=== PATIENT | male | born 1955 | race Caucasian/White ===

== ENCOUNTER → 2016-04-14 | Outpatient (REF) | payer OTHER, MEDICARE ==
[~2016-04-14] MED LIST: ACET-654 PO; ACET500C PO; ADVI200C5 PO; ALBU17IN INH; ASCO500T PO; ASPI1TAB PO; ATOR40TA PO; CIAL20TA PO; CO Q100C10 PO; COLC1TAB13 PO; CYCL10TA PO; DULO1CAP3 PO; FURO40TA2 PO; GABA600T PO; HYDR-3719 PO; LISI-538 PO; LISI10TA4 PO; MELO15TA4 PO; METF500T4 PO; METO50TA2 PO; OMEP40CA2 PO; PLAV75TA38 PO; POTA20TA PO; PRIL40CA PO; SIMV10TA2 PO; SUCR1TA PO; TYLE1TAB5 PO; VITMTA PO; VOLT1GEL24 TD; ZYLO300T4 PO
[2016-04-14 09:34] LABS: MEAN CORPUSCULAR HEMOGLOBIN 25.5 pg (27.0-33.0); MEAN CORPUSCULAR HGB CONC 31.4 g/dl (32.0-36.5); MEAN CORPUSCULAR VOLUME 81.4 fl (80.0-96.0); RED CELL DISTRIBUTION WIDTH 16.1 % (11.5-14.5); WHITE BLOOD COUNT 11.5 K/mm3 (4.0-10.0)
[2016-04-14 10:12] LABS: ALBUMIN 3.7 GM/DL (3.2-5.2); ALBUMIN/GLOBULIN RATIO 0.97 (1.00-1.93); BILIRUBIN,TOTAL 0.3 MG/DL (0.2-1.0); CALCIUM LEVEL 8.8 MG/DL (8.5-10.1); CREATININE FOR GFR 1.38 MG/DL (0.70-1.30); GLOMERULAR FILTRATION RATE 56.3 (>56); POTASSIUM SERUM 4.3 MEQ/L (3.5-5.1); TOTAL PROTEIN 7.5 GM/DL (6.4-8.2)
== END ==
LOC: M LAB REF 09:01
PROVIDERS: ATTEND Family Medicine
DX: E11.9 Type 2 diabetes mellitus without complications (principal)

== ENCOUNTER 2016-04-19 09:41 | Outpatient (RCR) | payer OTHER, MEDICARE | END 2016-04-25 | LOC: M CR 09:41 | PROVIDERS: ATTEND Internal Medicine Cardiovascular Disease | DX: Z98.61 Coronary angioplasty status (principal); Z95.1 Presence of aortocoronary bypass graft ==

== ENCOUNTER 2016-04-21 10:48 | Emergency (ER) | payer OTHER, MEDICARE ==
[2016-04-21 11:39] LABS: BASO % 0.3 % (0.0-1.0); EOS # 0.4 K/mm3 (0.0-0.50); EOS % 3.7 % (0.0-3.0); LARGE UNSTAINED CELL # 0.2 K/mm3 (0.0-0.4); LARGE UNSTAINED CELL % 1.4 % (0.0-4.0); LYMPH # 1.9 K/mm3 (1.5-4.5); LYMPH % 15.9 % (24.0-44.0); MEAN CORPUSCULAR HEMOGLOBIN 24.9 pg (27.0-33.0); MEAN CORPUSCULAR VOLUME 82.9 fl (80.0-96.0); MONO # 0.7 K/mm3 (0.0-0.8); MONO % 5.5 % (0.0-5.0); NEUTROPHILS # 8.9 K/mm3 (1.8-7.7); NEUTROPHILS % 73.2 % (36.0-66.0); PLATELET COUNT, AUTOMATED 229 k/mm3 (150-450); RED CELL DISTRIBUTION WIDTH 16.5 % (11.5-14.5); WHITE BLOOD COUNT 12.1 K/mm3 (4.0-10.0)
--- NOTE | 2016-04-21 12:03 | REP ---
PORTABLE CHEST X-RAY: Single view. HISTORY: Chest pain. Comparison chest x-ray January 19, 2016. FINDINGS: Right hemidiaphragm remains elevated. EKG monitoring electrodes overlie the chest. Prior sternotomy wires are seen. Heart is not felt to be enlarged. No infiltrate is seen. IMPRESSION: Elevated right hemidiaphragm unchanged. Prior sternotomy. No active disease. Signed by Francois Miramontes MD 04/21/2016 02:01 P
[2016-04-21 12:14] LABS: ANION GAP 8 MEQ/L (8-16); BLOOD UREA NITROGEN 20 MG/DL (7-18); CALCIUM LEVEL 8.5 MG/DL (8.5-10.1); CARBON DIOXIDE LEVEL 27 MEQ/L (21-32); CHLORIDE LEVEL 106 MEQ/L (98-107); CREATININE FOR GFR 1.32 MG/DL (0.70-1.30); GLOMERULAR FILTRATION RATE 59.3 (>56); GLUCOSE, FASTING 208 MG/DL (70-105); POTASSIUM SERUM 3.9 MEQ/L (3.5-5.1); SODIUM LEVEL 141 MEQ/L (136-145)
[2016-04-21 12:26] LABS: ERYTHROCYTE SEDIMENTATION RATE 45 mm/hr (0-20)
[2016-04-21] MEDS ORDERED: KETOROLAC 30 MG/ML VIAL (J1885) As Ordered ONE (13:19)
--- NOTE | 2016-04-21 17:10 | REP ---
CT study of the chest without contrast: History: Chest pain. Comparison is made with today's chest x-ray. CT findings: The right hemidiaphragm is quite elevated. There is linear plate-like atelectasis in the right middle lobe and right lower lobe above the elevated right hemidiaphragm. No infiltrate is seen. No pulmonary mass lesion is observed. Tracheobronchial tree is unremarkable. No pleural effusion seen. Prior sternotomy wires are noted. No pericardial fluid is seen. No hilar or mediastinal mass or adenopathy is observed. There are degenerative disc changes in the thoracic spine. There is a 1 cm central right hepatic lobe low density consistent with a small cyst. There is a 2 mm intrarenal calculus in the upper pole of the right kidney. There is a suture line at the gastroesophageal junction. Impression: Elevated right hemidiaphragm with discoid atelectasis in the right middle lobe and lower lobe. Postoperative changes in the upper abdomen. Prior sternotomy. 2 mm intrarenal calculus right kidney upper pole. Signed by Francois Miramontes MD 04/21/2016 10:13 P
[2016-04-21] MEDS ORDERED: PERCOCET 5MG/325MG TAB As Ordered ONE (17:50)
--- NOTE | 2016-04-21 19:06 | EDDOCDS ---
Physician Documentation [facility] Name: Jose Villatoro Age: 60 yrs Sex: Male : 1955 Arrival Date: 04/21/2016 Time: 10:48 Bed OBSERVATION Private MD: Leroy Triana Disposition: 04/21/16 18:38 Discharged to Home/Self Care. Impression: Chest pain on breathing. - Condition is Stable. - Discharge Instructions: Angina Pectoris, Nonspecific Chest Pain, Chest Wall Pain, Costochondritis, Angina Pectoris, [id number]. - Medication Reconciliation, Local Pharmacy Hours form. - Follow up: Leroy Triana; When: 2 - 3 days. - Problem is new. - Symptoms have improved. Historical: - Allergies: PENICILLINS; - Home Meds: 1. gabapentin 600 mg Oral tab 1 tab 3 times per day (Last dose: 04/21/2016 09:00) 2. metformin 500 mg Oral Tb24 2 tabs 2 times per day (Last dose: 04/21/2016 09:00) 3. atorvastatin 40 mg oral tab 1 tab sunday and for two weeks begining this week. (Last dose: 04/20/2016 09:00) 4. aspirin 81 mg Oral chew 1 tab once daily (Last dose: 04/21/2016 09:00) 5. [place] 10-325 mg Oral tab 1 tab every 6 hours as needed (Last dose: 04/21/2016 09:00) 6. clopidogrel 75 mg oral tab 1 tab once daily (Last dose: 04/21/2016 09:00) 7. duloxetine 60 mg Oral cpDR 1 cap once daily (Last dose: 04/21/2016 09:00) 8. voltaren gel 1% as needed (Last dose: 04/16/2016) 9. omeprazole 40 mg Oral cpDR 1 cap once daily (Last dose: 04/21/2016 09:00) 10. CoQ-10 100 mg oral cap 1 cap twice a day (Last dose: 04/21/2016 09:00) 11. metoprolol tartrate 50 mg Oral tab 1 tab 2 times per day (Last dose: 04/21/2016 09:00) 12. nitroglycerin 0.4 mg SL subl 1 tab PRN (Last dose: 12/15/2014) 13. Tylenol PM 500 mg oral soln 1 tablet as needed 1 to 2 tablets (Last dose: 03/30/2016) 14. allopurinol 300 mg Oral tab 1 tab once daily (Last dose: 04/21/2016 09:00) - PMHx: Arthritis; CAD; Chronic Back pain; Depression; Diabetes - NIDDM: uncontrolled; Gout; Hypercholesterolemia; Hypertension; nerve pain; Palpitations; Anemia; - PSHx: CABG; pericardial window; - Social history: Smoking status: Patient states former smoker of tobacco. No barriers to communication noted, The patient speaks fluent Croatian. - Family history: Not pertinent. - : The pt / caregiver states he / she is on anticoagulants: Plavix. Home medication list is obtained from the patient. - Exposure Risk Screening:: None identified. Vital Signs: 04/21 10:59 BP 153 / 74; Pulse 85; Resp 20; Temp 98.3(O); Pulse Ox 96% on R/A; nb2 12:55 BP 132 / 61 (auto/); ja5 12:55 Pulse 78 MON; Pulse Ox 94% ; ja5 13:10 BP 123 / 67 (auto/); ja5 13:10 Pulse 80 MON; Pulse Ox 95% ; ja5 13:24 Pulse 80 MON; Pulse Ox 97% ; ja5 13:25 BP 115 / 56 (auto/); ja5 13:39 Pulse 80 MON; Pulse Ox 94% ; ja5 13:40 BP 130 / 78 (auto/); ja5 13:54 Pulse 84 MON; Pulse Ox 97% ; ja5 13:55 BP 126 / 71 (auto/); ja5 14:10 BP 132 / 94 (auto/); ja5 14:10 Pulse 78 MON; Pulse Ox 96% ; ja5 14:24 Pulse 78 MON; Pulse Ox 94% ; ja5 14:25 BP 110 / 57 (auto/); ja5 14:40 BP 123 / 58 (auto/); ja5 14:40 Pulse 80 MON; Pulse Ox 92% ; ja5 14:49 BP 123 / 58; Pulse 82; Resp 20; Temp 96.7(O); Pulse Ox 95% on R/A; Pain 2/10; jc4 14:54 Pulse 78 MON; Pulse Ox 94% ; ja5 14:55 BP 122 / 58 (auto/); ja5 15:09 Pulse 70 MON; Pulse Ox 93% ; ja5 15:10 BP 119 / 58 (auto/); ja5 15:23 Pulse 78 MON; Pulse Ox 93% ; ja5 15:25 BP 125 / 60 (auto/); ja5 15:39 Pulse 78 MON; Pulse Ox 95% ; ja5 15:40 BP 111 / 69 (auto/); ja5 15:50 Pulse 78 MON; Pulse Ox 96% ; ja5 15:55 BP 111 / 45 (auto/); ja5 16:09 Pulse 60 MON; ja5 16:10 BP 123 / 60 (auto/); ja5 16:24 Pulse 78 MON; Pulse Ox 97% ; ja5 16:25 BP 113 / 56 (auto/); ja5 16:40 BP 126 / 69 (auto/); ja5 16:40 Pulse 82 MON; Pulse Ox 98% ; ja5 16:54 Pulse 80 MON; Pulse Ox 97% ; ja5 16:55 BP 158 / 73 (auto/); ja5 17:10 BP 152 / 70 (auto/); ja5 17:10 Pulse 80 MON; Pulse Ox 97% ; ja5 17:43 Pulse 82 MON; ja5 17:44 BP 126 / 83 (auto/); ja5 18:15 Pain 8/10; ja5 18:43 BP 134 / 66 LA Supine (auto/); Pulse 55; Resp 16; Temp 97.1(T); Pulse Ox 95% on R/A; ja5 Pain 9/10; MDM: 10:52 Chemistry Instructor/Pulse Ox/q 30 min VS ordered. sd1 10:52 IV Saline Lock ordered. sd1 10:52 Rhythm Strip to chart ordered. sd1 10:52 Undress patient appropriately for examination ordered. sd1 10:53 Basic Metabolic Profile Ordered. EDMS 10:53 CBC with Diff Ordered. EDMS 10:53 Cardiac Injury Profile Ordered. EDMS 10:53 Troponin Ordered. EDMS 10:54 portable chest Ordered. EDMS 10:54 ECG WITH READING ER PHYS+CARDIAG ordered. EDMS 11:10 Financial registration complete. mm15 11:36 ERYTHROCYTE SEDIMENTATION RATE Ordered. EDMS 11:42 CBC with Diff Reviewed. sd1 12:22 Basic Metabolic Profile Reviewed. sd1 12:22 CBC with Diff Reviewed. sd1 12:22 Cardiac Injury Profile Reviewed. sd1 12:22 Troponin Reviewed. sd1 12:22 portable chest Reviewed. sd1 12:38 CBC with Diff Reviewed. sd1 12:38 ERYTHROCYTE SEDIMENTATION RATE Reviewed. sd1 12:43 ketorolac 15 mg IVP once ordered. sd1 13:23 CONSISTENT CARBOHYDRATE+DIET ordered. EDMS 13:24 [facility] Payment Agreement was scanned into [employer] and attached to record. mm15 16:22 portable chest Reviewed. sd1 16:24 CT Chest Without Contrast Ordered. EDMS 17:28 Repeat EKG (put time details section) ordered. sd1 17:28 Redraw CIP &Troponin (put time in details section) ordered. sd1 17:29 Repeat EKG (put time details section) complete. lbd 17:29 Redraw CIP &Troponin (put time in details section) complete. lbd 17:32 CARDIAC MARKER PANEL Ordered. EDMS 17:34 ECG WITH READING ER PHYS ordered. EDMS 17:45 oxyCODONE-acetaminophen 5 mg-325 mg 1 tabs PO once ordered. sd1 18:19 CT Chest Without Contrast Reviewed. sd1 18:27 CARDIAC MARKER PANEL Reviewed. sd1 Administered Medications: 13:22 Drug: ketorolac 15 mg [ketorolac 30 mg/mL (1 mL) injection solution (0.5 mL)] Route: kr3 IVP; Site: right antecubital; 14:49 Follow up: BP 123 / 58; Pulse 82 bpm; Resp 20 bpm; Temp 96.7 Oral; Pulse Ox 95% RA; jc4 Pain 2/10 Adult 17:53 Drug: oxyCODONE-acetaminophen 1 tabs [oxycodone-acetaminophen 5 mg-325 mg tablet (1 ja5 tabs)] Route: PO; 18:15 Follow up: Pain 8/10 Adult ja5 Signatures: Dispatcher [employer] EDMS Linnette Benavidez MD MD sd1 Windy Watters, Fitness Trainer Unit lbd Opal Hernandez mm15 oCral Muller RN RN ja5 Lupe Winston RN kr3 Ivette Young RN jc4 The chart was reviewed and I authenticate all verbal orders and agree with the evaluation and treatment provided.Corrections: (The following items were deleted from the chart) 11:36 11:05 ERYTHROCYTE SEDIMENTATION RATE+LAB ordered. EDMS EDMS Attachments: 13:24 [facility] Payment Agreement mm15 MTDD
--- NOTE | 2016-04-21 19:07 | EDDOCDS ---
Nurse's Notes [facility] Name: Jose Villatoro Age: 60 yrs Sex: Male : 1955 Arrival Date: 04/21/2016 Time: 10:48 Bed OBSERVATION Private MD: Leroy Triana Diagnosis: Chest pain on breathing Presentation: 04/21 10:59 Presenting complaint: Patient states: Has chest pain to when he breathes. This pain ja5 began last night around 8pm. 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 Adult Sepsis Screening: The patient does not have new or worsening altered mentation. Patient's respiratory rate is less than 22. Systolic blood pressure is greater than 100. Patient has a qSOFA score of 0- Negative Sepsis Screen. Suicide/Homicide risk assessment- the patient denies having any suicidal and/or homicidal ideations and does not present with any other emotional, behavioral or mental health complaints. Status: Patient is not a special agent secret service or dependent. Transition of care: patient was not received from another setting of care. 10:59 Acuity: WARREN Level 2 ja5 10:59 Method Of Arrival: Walkin/Carried/Asstd ja5 Triage Assessment: 11:23 General: Appears in no apparent distress, Behavior is appropriate for age, cooperative. ja5 Pain: Location: chest Pain currently is 5 out of 10 on a pain scale. Quality of pain is described as pressure. Pt Declines HIV testing. Neurological: Level of Consciousness is awake, alert, Oriented to person, place, time. Cardiovascular: Capillary refill < 3 seconds Chest pain is described as Pain is 5 out of 10 on a pain scale. radiates Does not radiate. episodes when breathing began last night 8pm. Respiratory: Airway is patent Respiratory effort is even, unlabored, Respiratory pattern is regular. Derm: Skin is intact, Skin is pink, warm & dry. Historical: - Allergies: PENICILLINS; - Home Meds: 1. gabapentin 600 mg Oral tab 1 tab 3 times per day (Last dose: 04/21/2016 09:00) 2. metformin 500 mg Oral Tb24 2 tabs 2 times per day (Last dose: 04/21/2016 09:00) 3. atorvastatin 40 mg oral tab 1 tab sunday and for two weeks begining this week. (Last dose: 04/20/2016 09:00) 4. aspirin 81 mg Oral chew 1 tab once daily (Last dose: 04/21/2016 09:00) 5. [place] 10-325 mg Oral tab 1 tab every 6 hours as needed (Last dose: 04/21/2016 09:00) 6. clopidogrel 75 mg oral tab 1 tab once daily (Last dose: 04/21/2016 09:00) 7. duloxetine 60 mg Oral cpDR 1 cap once daily (Last dose: 04/21/2016 09:00) 8. voltaren gel 1% as needed (Last dose: 04/16/2016) 9. omeprazole 40 mg Oral cpDR 1 cap once daily (Last dose: 04/21/2016 09:00) 10. CoQ-10 100 mg oral cap 1 cap twice a day (Last dose: 04/21/2016 09:00) 11. metoprolol tartrate 50 mg Oral tab 1 tab 2 times per day (Last dose: 04/21/2016 09:00) 12. nitroglycerin 0.4 mg SL subl 1 tab PRN (Last dose: 12/15/2014) 13. Tylenol PM 500 mg oral soln 1 tablet as needed 1 to 2 tablets (Last dose: 03/30/2016) 14. allopurinol 300 mg Oral tab 1 tab once daily (Last dose: 04/21/2016 09:00) - PMHx: Arthritis; CAD; Chronic Back pain; Depression; Diabetes - NIDDM: uncontrolled; Gout; Hypercholesterolemia; Hypertension; nerve pain; Palpitations; Anemia; - PSHx: CABG; pericardial window; - Social history: Smoking status: Patient states former smoker of tobacco. No barriers to communication noted, The patient speaks fluent Fijian. - Family history: Not pertinent. - : The pt / caregiver states he / she is on anticoagulants: Plavix. Home medication list is obtained from the patient. - Exposure Risk Screening:: None identified. Screenin:29 Screening information is obtained from the patient. Fall risk: No risks identified. ja5 Assistance ADL's: requires no assistance with activities of daily living. Abuse/DV Screen: The patient / caregiver reports he/she is: not in a situation that causes fear, pain or injury. Nutritional screening: On diabetic diet. Advance Directives: Currently, there is no health care proxy. There is no living will. There is no Power of Waste Water Worker. home support is adequate. 11:32 Advance Directives: There is no active DNR order. ja5 Assessment: 11:26 General: Appears in no apparent distress, Behavior is appropriate for age, cooperative. ja5 Neurological: Level of Consciousness is awake, alert. Cardiovascular: Capillary refill < 3 seconds Heart tones S1 S2 present Rhythm is sinus rhythm with unifocal PVCs bigeminal PVCs. Respiratory: Airway is patent Respiratory effort is even, unlabored, Breath sounds are clear bilaterally. Derm: Skin is intact, Skin is pink, warm & dry. 11:49 General: Pt resting on stretcher at this time. Color pink, skin warm and dry. jc4 Respirations easy and full. Saline lock in place. Family members at bedside. Call tovar in reach. 13:23 Reassessment: Patient appears in no apparent distress at this time. reports 9/10 body kr3 pain, all over body he reports. Patient sitting in wheelchair for his comfort. 14:51 General: Pt lying on stretcher with eyes closed, appeared to be asleep. Upon rousing, jc4 patient states that the pain in his chest is currently a "2/10" at this time. Color pink, skin warm and dry. Respirations easy and full. Diet sara jaguar given per request. 16:48 General: Patient is resting, was repositioned for his back pain, warm blankets placed ja5 on back. Patient states that his chest pain is now a 3/10.. 17:45 General: Patient is upset because he had to wait for the Follow-Up labs and ekg, he is ja5 in pain 10/10 at this time. 17:53 General: Pain medication administered, patient in better mood at this time, awaiting ja5 lab results.. 18:15 General: Patient resting with eyes closed in stretcher, pain is decreased to a 8/10. ja5 Patient states he has no needs at this time. Call tovar within reach.. 18:34 General: Appears uncomfortable, Behavior is appropriate for age, cooperative. ja5 Neurological: Level of Consciousness is awake, alert, Oriented to person, place, time. Cardiovascular: Capillary refill < 3 seconds. Respiratory: Airway is patent Respiratory effort is even, unlabored. Derm: Skin is intact, Skin is pink, warm & dry. Vital Signs: 10:59 BP 153 / 74; Pulse 85; Resp 20; Temp 98.3(O); Pulse Ox 96% on R/A; nb2 12:55 BP 132 / 61 (auto/); ja5 12:55 Pulse 78 MON; Pulse Ox 94% ; ja5 13:10 BP 123 / 67 (auto/); ja5 13:10 Pulse 80 MON; Pulse Ox 95% ; ja5 13:24 Pulse 80 MON; Pulse Ox 97% ; ja5 13:25 BP 115 / 56 (auto/); ja5 13:39 Pulse 80 MON; Pulse Ox 94% ; ja5 13:40 BP 130 / 78 (auto/); ja5 13:54 Pulse 84 MON; Pulse Ox 97% ; ja5 13:55 BP 126 / 71 (auto/); ja5 14:10 BP 132 / 94 (auto/); ja5 14:10 Pulse 78 MON; Pulse Ox 96% ; ja5 14:24 Pulse 78 MON; Pulse Ox 94% ; ja5 14:25 BP 110 / 57 (auto/); ja5 14:40 BP 123 / 58 (auto/); ja5 14:40 Pulse 80 MON; Pulse Ox 92% ; ja5 14:49 BP 123 / 58; Pulse 82; Resp 20; Temp 96.7(O); Pulse Ox 95% on R/A; Pain 2/10; jc4 14:54 Pulse 78 MON; Pulse Ox 94% ; ja5 14:55 BP 122 / 58 (auto/); ja5 15:09 Pulse 70 MON; Pulse Ox 93% ; ja5 15:10 BP 119 / 58 (auto/); ja5 15:23 Pulse 78 MON; Pulse Ox 93% ; ja5 15:25 BP 125 / 60 (auto/); ja5 15:39 Pulse 78 MON; Pulse Ox 95% ; ja5 15:40 BP 111 / 69 (auto/); ja5 15:50 Pulse 78 MON; Pulse Ox 96% ; ja5 15:55 BP 111 / 45 (auto/); ja5 16:09 Pulse 60 MON; ja5 16:10 BP 123 / 60 (auto/); ja5 16:24 Pulse 78 MON; Pulse Ox 97% ; ja5 16:25 BP 113 / 56 (auto/); ja5 16:40 BP 126 / 69 (auto/); ja5 16:40 Pulse 82 MON; Pulse Ox 98% ; ja5 16:54 Pulse 80 MON; Pulse Ox 97% ; ja5 16:55 BP 158 / 73 (auto/); ja5 17:10 BP 152 / 70 (auto/); ja5 17:10 Pulse 80 MON; Pulse Ox 97% ; ja5 17:43 Pulse 82 MON; ja5 17:44 BP 126 / 83 (auto/); ja5 18:15 Pain 8/10; ja5 18:43 BP 134 / 66 LA Supine (auto/); Pulse 55; Resp 16; Temp 97.1(T); Pulse Ox 95% on R/A; ja5 Pain 9/10; Vitals: 18:50 Log In Time: April 21, 2016 at 10:59. [facility] ED Course: 10:50 Patient visited by Windy Watters, Washer Engineer. lbd 10:50 Leroy Triana is Private Physician. lbd 10:50 Patient moved to Waiting lbd 10:51 Ivette Young, RN is Primary Nurse. lbd 10:51 Coral Muller RN is Primary Nurse. lbd 10:51 Linnette Benavidez MD is Attending Physician. sd1 10:51 Patient moved to 9 lbd 10:52 Patient visited by Linnette Benavidez MD. sd1 10:59 Placed in gown. Bed in low position. Call light in reach. Side rails up X2. Cardiac nb2 monitor on. Pulse ox on. NIBP on. 11:00 Patient visited by Christine Kulkarni. nb2 11:00 The patient / caregiver is instructed regarding the plan of care and ED course. [facility] 11:04 Triage Initiated [facility] 11:05 EKG done. (by ED staff). Reviewed by Linnette Benavidez MD. jrd 11:37 ERYTHROCYTE SEDIMENTATION RATE Sent. jc4 11:38 Inserted saline lock: 20 gauge in right antecubital area The patient tolerated the jc4 procedure well. 11:49 Patient visited by Ivette Young RN. jc4 12:15 portable chest Returned. EDMS 13:22 Patient visited by Lupe Winston RN. kr3 13:24 [facility] [place] Payment Agreement was scanned into [employer] and attached to record. mm15 13:37 Patient moved to OBSERVATION sd1 13:49 Patient visited by Christine Kulkarni. nb2 13:49 Diet tray given. kr3 13:49 Diet: Patient given regular meal. Patient given water. nb2 14:36 portable chest Returned. EDMS 17:30 EKG done. (by ED staff). Reviewed by Linnette Benavidez MD. jrd 17:45 Patient visited by Coral Muller RN. ja5 18:00 CT Chest Without Contrast Returned. EDMS 18:15 Patient visited by Coral Muller RN. ja5 18:38 Leroy Triana is Referral Physician. sd1 18:45 No procedures done that require assistance. ja5 18:49 Patient visited by Justyn Pozo PCA. leah Administered Medications: 13:22 Drug: ketorolac 15 mg [ketorolac 30 mg/mL (1 mL) injection solution (0.5 mL)] Route: kr3 IVP; Site: right antecubital; 14:49 Follow up: BP 123 / 58; Pulse 82 bpm; Resp 20 bpm; Temp 96.7 Oral; Pulse Ox 95% RA; jc4 Pain 2/10 Adult 17:53 Drug: oxyCODONE-acetaminophen 1 tabs [oxycodone-acetaminophen 5 mg-325 mg tablet (1 ja5 tabs)] Route: PO; 18:15 Follow up: Pain 8/10 Adult ja5 Order Results: Lab Order: Basic Metabolic Profile; SPEC'M 04/21/16 11:29 Test: GLUCOSE, FASTING; Value: 208; Range: 70-105; Abnormal: Above high normal; Units: MG/DL; Status: F Test: BLOOD UREA NITROGEN; Value: 20; Range: 7-18; Abnormal: Above high normal; Units: MG/DL; Status: F Test: CREATININE FOR GFR; Value: 1.32; Range: 0.70-1.30; Abnormal: Above high normal; Units: MG/DL; Status: F Test: GLOMERULAR FILTRATION RATE; Value: 59.3; Range: >56; Status: F Test: SODIUM LEVEL; Value: 141; Range: 136-145; Units: MEQ/L; Status: F Test: POTASSIUM SERUM; Value: 3.9; Range: 3.5-5.1; Units: MEQ/L; Status: F Test: CHLORIDE LEVEL; Value: 106; Range: 98-107; Units: MEQ/L; Status: F Test: CARBON DIOXIDE LEVEL; Value: 27; Range: 21-32; Units: MEQ/L; Status: F Test: ANION GAP; Value: 8; Range: 8-16; Units: MEQ/L; Status: F Test: CALCIUM LEVEL; Value: 8.5; Range: 8.5-10.1; Units: MG/DL; Status: F Test Note: ; Units are mL/min/1.73 m2 Chronic Kidney Disease Staging per NKF: Stage I & II GFR >=60 Normal to Mildly Decreased Stage III GFR 30-59 Moderately Decreased Stage IV GFR 15-29 Severely Decreased Stage V GFR <15 Very Little GFR Left ESRD GFR <15 on SENIOR ENVIRONMENTAL SCIENTIST Lab Order: CBC with Diff; SPEC'M 04/21/16 11:29 Test: WHITE BLOOD COUNT; Value: 12.1; Range: 4.0-10.0; Abnormal: Above high normal; Units: K/mm3; Status: F Test: RED BLOOD COUNT; Value: 4.56; Range: 4.30-6.10; Units: M/mm3; Status: F Test: HEMOGLOBIN; Value: 11.3; Range: 14.0-18.0; Abnormal: Below low normal; Units: g/dl; Status: F Test: HEMATOCRIT; Value: 37.8; Range: 42.0-52.0; Abnormal: Below low normal; Units: %; Status: F Test: MEAN CORPUSCULAR VOLUME; Value: 82.9; Range: 80.0-96.0; Units: fl; Status: F Test: MEAN CORPUSCULAR HEMOGLOBIN; Value: 24.9; Range: 27.0-33.0; Abnormal: Below low normal; Units: pg; Status: F Test: MEAN CORPUSCULAR HGB CONC; Value: 30.0; Range: 32.0-36.5; Abnormal: Below low normal; Units: g/dl; Status: F Test: RED CELL DISTRIBUTION WIDTH; Value: 16.5; Range: 11.5-14.5; Abnormal: Above high normal; Units: %; Status: F Test: PLATELET COUNT, AUTOMATED; Value: 229; Range: 150-450; Units: k/mm3; Status: F Test: NEUTROPHILS %; Value: 73.2; Range: 36.0-66.0; Abnormal: Above high normal; Units: %; Status: F Test: LYMPH %; Value: 15.9; Range: 24.0-44.0; Abnormal: Below low normal; Units: %; Status: F Test: MONO %; Value: 5.5; Range: 0.0-5.0; Abnormal: Above high normal; Units: %; Status: F Test: EOS %; Value: 3.7; Range: 0.0-3.0; Abnormal: Above high normal; Units: %; Status: F Test: BASO %; Value: 0.3; Range: 0.0-1.0; Units: %; Status: F Test: LARGE UNSTAINED CELL %; Value: 1.4; Range: 0.0-4.0; Units: %; Status: F Test: NEUTROPHILS #; Value: 8.9; Range: 1.8-7.7; Abnormal: Above high normal; Units: K/mm3; Status: F Test: LYMPH #; Value: 1.9; Range: 1.5-4.5; Units: K/mm3; Status: F Test: MONO #; Value: 0.7; Range: 0.0-0.8; Units: K/mm3; Status: F Test: EOS #; Value: 0.4; Range: 0.0-0.50; Units: K/mm3; Status: F Test: BASO #; Value: 0.0; Range: 0.0-0.2; Units: K/mm3; Status: F Test: LARGE UNSTAINED CELL #; Value: 0.2; Range: 0.0-0.4; Units: K/mm3; Status: F Lab Order: Cardiac Injury Profile; SPEC'M 04/21/16 11:29 Test: CPK CREATINE PHOSPHOKINASE; Value: 46; Range: 39-308; Units: U/L; Status: F Test: CK-MB VALUE MASS; Value: 1.0; Range: 0.0-3.6; Units: NG/ML; Status: F Test: MB/CK RELATIVE INDEX; Value: 2.17; Range: < OR =4; Status: F Test Note: ; DIAGNOSIS CRITERIA MMB ng/ml Relative Index (RI) NON-AMI < or = 5 N/A [place] > 5 < or = 4 AMI > 5 > 4 Lab Order: Troponin; SPEC'M 04/21/16 11:29 Test: TROPONIN I; Value: < 0.02; Range: < 0.10; Units: NG/ML; Status: F Test Note: ; Troponin I Reference Interval for Siemens Linki LOCI: 99th Percentile= 0.00-0.045 ng/ml Risk Stratification: <= 0.10 ng/ml Decreased Risk for Adverse Clinical Events. 0.10-1.50 ng/ml Increased Risk for Adverse Clinical Events. Evaluation of additional criterion and/or repeat testing in 2-6 hours is suggested to rule out myocardial damage. >= 1.50 ng/ml Indicative of Myocardial Injury. Lab Order: ERYTHROCYTE SEDIMENTATION RATE; SPEC'M 04/21/16 11:29 Test: ERYTHROCYTE SEDIMENTATION RATE; Value: 45; Range: 0-20; Abnormal: Above high normal; Units: mm/hr; Status: F Lab Order: CARDIAC MARKER PANEL; SPEC'M 04/21/16 17:41 Test: CPK CREATINE PHOSPHOKINASE; Value: 49; Range: 39-308; Units: U/L; Status: F Test: CK-MB VALUE MASS; Value: 1.0; Range: 0.0-3.6; Units: NG/ML; Status: F Test: MB/CK RELATIVE INDEX; Value: 2.04; Range: < OR =4; Status: F Test: TROPONIN I; Value: < 0.02; Range: < 0.10; Units: NG/ML; Status: F Test Note: ; DIAGNOSIS CRITERIA MMB ng/ml Relative Index (RI) NON-AMI < or = 5 N/A [place]ONE > 5 < or = 4 AMI > 5 > 4 Radiology Order: portable chest Test: portable chest REASON FOR EXAMINATION: Chest Pain; PORTABLE CHEST X-RAY: Single view.; ; HISTORY: Chest pain.; ; Comparison chest x-ray January 19, 2016.; ; FINDINGS: Right hemidiaphragm remains elevated. EKG monitoring electrodes; overlie the chest. Prior sternotomy wires are seen. Heart is not felt to be; enlarged. No infiltrate is seen.; ; IMPRESSION: Elevated right hemidiaphragm unchanged. Prior sternotomy. No active; disease.; ; ; Signed by; Francois Miramontes MD 04/21/2016 02:01 P; Radiology Order: CT Chest Without Contrast Test: CT Chest Without Contrast REASON FOR EXAMINATION: Chest Pain; CT study of the chest without contrast:; ; History: Chest pain.; ; Comparison is made with today's chest x-ray.; ; CT findings: The right hemidiaphragm is quite elevated. There is linear; plate-like atelectasis in the right middle lobe and right lower lobe above the; elevated right hemidiaphragm. No infiltrate is seen. No pulmonary mass lesion; is observed. Tracheobronchial tree is unremarkable. No pleural effusion seen.; Prior sternotomy wires are noted. No pericardial fluid is seen. No hilar or; mediastinal mass or adenopathy is observed. There are degenerative disc changes; in the thoracic spine. There is a 1 cm central right hepatic lobe low density; consistent with a small cyst. There is a 2 mm intrarenal calculus in the upper; pole of the right kidney. 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 Postoperative changes in the upper abdomen. Prior sternotomy.; 2 mm intrarenal calculus right kidney upper pole.; ; ; ; ; Unreviewed; Outcome: 18:38 Discharge ordered by Provider. sd1 18:45 Discharge Assessment: patient administered narcotics - yes. Pt provided with safe ja5 discharge. The following High Risk Discharge criteria are identified: None. Condition: stable. CT Study completed. Property :Personal belongings accompany Pt. 19:05 Discharge instructions given to patient, Instructed on discharge instructions, follow ja5 up and referral plans. medication usage, no driving heavy equipment, Demonstrated understanding of instructions, medications, 19:05 Patient left the ED. ja5 Signatures: Dispatcher [employer] EDMS Linnette Benavidez MD MD sd1 Windy Watters, Washer Engineer Unit lbd Lupe Winston,RN RN [email or web address] Ivette Young RN RN [email or web address] Opal Hernandez mm15 Justyn Pozo, JOSE WHARF WORKER Christine Batres2 Coral Muller,RN RN ana [email or web address] Corrections: (The following items were deleted from the chart) 11:36 11:31 ERYTHROCYTE SEDIMENTATION RATE+LAB sent. jc4 EDMS MTDD
--- NOTE | 2016-04-21 19:29 | ECGEPIP ---
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
--- NOTE | 2016-04-21 19:35 | ECGEPIP ---
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
--- NOTE | 2016-04-23 20:07 | EDDOCDS ---
Physician Documentation [facility] Name: Jose Villatoro Age: 60 yrs Sex: Male : 1955 Arrival Date: 04/21/2016 Time: 10:48 Bed OBSERVATION Private MD: Leroy Triana Disposition: 04/21/16 18:38 Discharged to Home/Self Care. Impression: Chest pain on breathing. - Condition is Stable. - Discharge Instructions: Angina Pectoris, Nonspecific Chest Pain, Chest Wall Pain, Costochondritis, Angina Pectoris, [id number]. - Medication Reconciliation, Local Pharmacy Hours form. - Follow up: Leroy Triana; When: 2 - 3 days. - Problem is new. - Symptoms have improved. Historical: - Allergies: PENICILLINS; - Home Meds: 1. gabapentin 600 mg Oral tab 1 tab 3 times per day (Last dose: 04/21/2016 09:00) 2. metformin 500 mg Oral Tb24 2 tabs 2 times per day (Last dose: 04/21/2016 09:00) 3. atorvastatin 40 mg oral tab 1 tab sunday and for two weeks begining this week. (Last dose: 04/20/2016 09:00) 4. aspirin 81 mg Oral chew 1 tab once daily (Last dose: 04/21/2016 09:00) 5. [place] 10-325 mg Oral tab 1 tab every 6 hours as needed (Last dose: 04/21/2016 09:00) 6. clopidogrel 75 mg oral tab 1 tab once daily (Last dose: 04/21/2016 09:00) 7. duloxetine 60 mg Oral cpDR 1 cap once daily (Last dose: 04/21/2016 09:00) 8. voltaren gel 1% as needed (Last dose: 04/16/2016) 9. omeprazole 40 mg Oral cpDR 1 cap once daily (Last dose: 04/21/2016 09:00) 10. CoQ-10 100 mg oral cap 1 cap twice a day (Last dose: 04/21/2016 09:00) 11. metoprolol tartrate 50 mg Oral tab 1 tab 2 times per day (Last dose: 04/21/2016 09:00) 12. nitroglycerin 0.4 mg SL subl 1 tab PRN (Last dose: 12/15/2014) 13. Tylenol PM 500 mg oral soln 1 tablet as needed 1 to 2 tablets (Last dose: 03/30/2016) 14. allopurinol 300 mg Oral tab 1 tab once daily (Last dose: 04/21/2016 09:00) - PMHx: Arthritis; CAD; Chronic Back pain; Depression; Diabetes - NIDDM: uncontrolled; Gout; Hypercholesterolemia; Hypertension; nerve pain; Palpitations; Anemia; - PSHx: CABG; pericardial window; - Social history: Smoking status: Patient states former smoker of tobacco. No barriers to communication noted, The patient speaks fluent [place]. - Family history: Not pertinent. - : The pt / caregiver states he / she is on anticoagulants: Plavix. Home medication list is obtained from the patient. - Exposure Risk Screening:: None identified. Vital Signs: 04/21 10:59 BP 153 / 74; Pulse 85; Resp 20; Temp 98.3(O); Pulse Ox 96% on R/A; nb2 12:55 BP 132 / 61 (auto/); ja5 12:55 Pulse 78 MON; Pulse Ox 94% ; ja5 13:10 BP 123 / 67 (auto/); ja5 13:10 Pulse 80 MON; Pulse Ox 95% ; ja5 13:24 Pulse 80 MON; Pulse Ox 97% ; ja5 13:25 BP 115 / 56 (auto/); ja5 13:39 Pulse 80 MON; Pulse Ox 94% ; ja5 13:40 BP 130 / 78 (auto/); ja5 13:54 Pulse 84 MON; Pulse Ox 97% ; ja5 13:55 BP 126 / 71 (auto/); ja5 14:10 BP 132 / 94 (auto/); ja5 14:10 Pulse 78 MON; Pulse Ox 96% ; ja5 14:24 Pulse 78 MON; Pulse Ox 94% ; ja5 14:25 BP 110 / 57 (auto/); ja5 14:40 BP 123 / 58 (auto/); ja5 14:40 Pulse 80 MON; Pulse Ox 92% ; ja5 14:49 BP 123 / 58; Pulse 82; Resp 20; Temp 96.7(O); Pulse Ox 95% on R/A; Pain 2/10; jc4 14:54 Pulse 78 MON; Pulse Ox 94% ; ja5 14:55 BP 122 / 58 (auto/); ja5 15:09 Pulse 70 MON; Pulse Ox 93% ; ja5 15:10 BP 119 / 58 (auto/); ja5 15:23 Pulse 78 MON; Pulse Ox 93% ; ja5 15:25 BP 125 / 60 (auto/); ja5 15:39 Pulse 78 MON; Pulse Ox 95% ; ja5 15:40 BP 111 / 69 (auto/); ja5 15:50 Pulse 78 MON; Pulse Ox 96% ; ja5 15:55 BP 111 / 45 (auto/); ja5 16:09 Pulse 60 MON; ja5 16:10 BP 123 / 60 (auto/); ja5 16:24 Pulse 78 MON; Pulse Ox 97% ; ja5 16:25 BP 113 / 56 (auto/); ja5 16:40 BP 126 / 69 (auto/); ja5 16:40 Pulse 82 MON; Pulse Ox 98% ; ja5 16:54 Pulse 80 MON; Pulse Ox 97% ; ja5 16:55 BP 158 / 73 (auto/); ja5 17:10 BP 152 / 70 (auto/); ja5 17:10 Pulse 80 MON; Pulse Ox 97% ; ja5 17:43 Pulse 82 MON; ja5 17:44 BP 126 / 83 (auto/); ja5 18:15 Pain 8/10; ja5 18:43 BP 134 / 66 LA Supine (auto/); Pulse 55; Resp 16; Temp 97.1(T); Pulse Ox 95% on R/A; ja5 Pain 9/10; MDM: 10:52 Call Or Contact Centre Operator/Pulse Ox/q 30 min VS ordered. sd1 10:52 IV Saline Lock ordered. sd1 10:52 Rhythm Strip to chart ordered. sd1 10:52 Undress patient appropriately for examination ordered. sd1 10:53 Basic Metabolic Profile Ordered. EDMS 10:53 CBC with Diff Ordered. EDMS 10:53 Cardiac Injury Profile Ordered. EDMS 10:53 Troponin Ordered. EDMS 10:54 portable chest Ordered. EDMS 10:54 ECG WITH READING ER PHYS+CARDIAG ordered. EDMS 11:10 Financial registration complete. mm15 11:36 ERYTHROCYTE SEDIMENTATION RATE Ordered. EDMS 11:42 CBC with Diff Reviewed. sd1 12:22 Basic Metabolic Profile Reviewed. sd1 12:22 CBC with Diff Reviewed. sd1 12:22 Cardiac Injury Profile Reviewed. sd1 12:22 Troponin Reviewed. sd1 12:22 portable chest Reviewed. sd1 12:38 CBC with Diff Reviewed. sd1 12:38 ERYTHROCYTE SEDIMENTATION RATE Reviewed. sd1 12:43 ketorolac 15 mg IVP once ordered. sd1 13:23 CONSISTENT CARBOHYDRATE+DIET ordered. EDMS 13:24 [facility] Payment Agreement was scanned into [employer] and attached to record. mm15 16:22 portable chest Reviewed. sd1 16:24 CT Chest Without Contrast Ordered. EDMS 17:28 Repeat EKG (put time details section) ordered. sd1 17:28 Redraw CIP &Troponin (put time in details section) ordered. sd1 17:29 Repeat EKG (put time details section) complete. lbd 17:29 Redraw CIP &Troponin (put time in details section) complete. lbd 17:32 CARDIAC MARKER PANEL Ordered. EDMS 17:34 ECG WITH READING ER PHYS ordered. EDMS 17:45 oxyCODONE-acetaminophen 5 mg-325 mg 1 tabs PO once ordered. sd1 18:19 CT Chest Without Contrast Reviewed. sd1 18:27 CARDIAC MARKER PANEL Reviewed. sd1 04/22 08:08 ECG/EKG was scanned into [employer] and attached to record. gb 08:39 ECG/EKG was scanned into [employer] and attached to record. [facility] Administered Medications: 04/21 13:22 Drug: ketorolac 15 mg [ketorolac 30 mg/mL (1 mL) injection solution (0.5 mL)] Route: kr3 IVP; Site: right antecubital; 14:49 Follow up: BP 123 / 58; Pulse 82 bpm; Resp 20 bpm; Temp 96.7 Oral; Pulse Ox 95% RA; jc4 Pain 2/10 Adult 17:53 Drug: oxyCODONE-acetaminophen 1 tabs [oxycodone-acetaminophen 5 mg-325 mg tablet (1 ja5 tabs)] Route: PO; 18:15 Follow up: Pain 8/10 Adult ja5 Signatures: Dispatcher [employer] EDMS Linnette Benavidez MD MD sd1 Windy Watters, [employer] [facility] lbd Amelia Manley, Reg Reg gb Opal Hernandez mm15 Linnette Paris JessicaRN RN ja5 Lupe Winston RN kr3 Ivette Young RN jc4 The chart was reviewed and I authenticate all verbal orders and agree with the evaluation and treatment provided.Corrections: (The following items were deleted from the chart) 11:36 11:05 ERYTHROCYTE SEDIMENTATION RATE+LAB ordered. EDMS EDMS Attachments: 13:24 [facility] Payment Agreement mm15 04/22 08:08 ECG/EKG gb 08:39 ECG/EKG [facility] Chart Complete MTDD
--- NOTE | 2016-04-23 20:07 | EDDOCDS ---
Nurse's Notes [facility] Name: Jose Villatoro Age: 60 yrs Sex: Male : 1955 Arrival Date: 04/21/2016 Time: 10:48 Bed OBSERVATION Private MD: Leroy Triana Diagnosis: Chest pain on breathing Presentation: 04/21 10:59 Presenting complaint: Patient states: Has chest pain to when he breathes. This pain ja5 began last night around 8pm. Aspirin was taken ORACLE ANALYST. 81mg. Adult Sepsis Screening: The patient does not have new or worsening altered mentation. Patient's respiratory rate is less than 22. Systolic blood pressure is greater than 100. Patient has a qSOFA score of 0- Negative Sepsis Screen. Suicide/Homicide risk assessment- the patient denies having any suicidal and/or homicidal ideations and does not present with any other emotional, behavioral or mental health complaints. Status: Patient is not a clinical services manager or dependent. Transition of care: patient was not received from another setting of care. 10:59 Acuity: WARREN Level 2 ja5 10:59 Method Of Arrival: Walkin/Carried/Asstd ja5 Triage Assessment: 11:23 General: Appears in no apparent distress, Behavior is appropriate for age, cooperative. ja5 Pain: Location: chest Pain currently is 5 out of 10 on a pain scale. Quality of pain is described as pressure. Pt Declines HIV testing. Neurological: Level of Consciousness is awake, alert, Oriented to person, place, time. Cardiovascular: Capillary refill < 3 seconds Chest pain is described as Pain is 5 out of 10 on a pain scale. radiates Does not radiate. episodes when breathing began last night 8pm. Respiratory: Airway is patent Respiratory effort is even, unlabored, Respiratory pattern is regular. Derm: Skin is intact, Skin is pink, warm & dry. Historical: - Allergies: PENICILLINS; - Home Meds: 1. gabapentin 600 mg Oral tab 1 tab 3 times per day (Last dose: 04/21/2016 09:00) 2. metformin 500 mg Oral Tb24 2 tabs 2 times per day (Last dose: 04/21/2016 09:00) 3. atorvastatin 40 mg oral tab 1 tab sunday and for two weeks begining this week. (Last dose: 04/20/2016 09:00) 4. aspirin 81 mg Oral chew 1 tab once daily (Last dose: 04/21/2016 09:00) 5. [place] 10-325 mg Oral tab 1 tab every 6 hours as needed (Last dose: 04/21/2016 09:00) 6. clopidogrel 75 mg oral tab 1 tab once daily (Last dose: 04/21/2016 09:00) 7. duloxetine 60 mg Oral cpDR 1 cap once daily (Last dose: 04/21/2016 09:00) 8. voltaren gel 1% as needed (Last dose: 04/16/2016) 9. omeprazole 40 mg Oral cpDR 1 cap once daily (Last dose: 04/21/2016 09:00) 10. CoQ-10 100 mg oral cap 1 cap twice a day (Last dose: 04/21/2016 09:00) 11. metoprolol tartrate 50 mg Oral tab 1 tab 2 times per day (Last dose: 04/21/2016 09:00) 12. nitroglycerin 0.4 mg SL subl 1 tab PRN (Last dose: 12/15/2014) 13. Tylenol PM 500 mg oral soln 1 tablet as needed 1 to 2 tablets (Last dose: 03/30/2016) 14. allopurinol 300 mg Oral tab 1 tab once daily (Last dose: 04/21/2016 09:00) - PMHx: Arthritis; CAD; Chronic Back pain; Depression; Diabetes - NIDDM: uncontrolled; Gout; Hypercholesterolemia; Hypertension; nerve pain; Palpitations; Anemia; - PSHx: CABG; pericardial window; - Social history: Smoking status: Patient states former smoker of tobacco. No barriers to communication noted, The patient speaks fluent Brazilian. - Family history: Not pertinent. - : The pt / caregiver states he / she is on anticoagulants: Plavix. Home medication list is obtained from the patient. - Exposure Risk Screening:: None identified. Screenin:29 Screening information is obtained from the patient. Fall risk: No risks identified. ja5 Assistance ADL's: requires no assistance with activities of daily living. Abuse/DV Screen: The patient / caregiver reports he/she is: not in a situation that causes fear, pain or injury. Nutritional screening: On diabetic diet. Advance Directives: Currently, there is no health care proxy. There is no living will. There is no Power of Credentialing Manager. home support is adequate. 11:32 Advance Directives: There is no active DNR order. ja5 Assessment: 11:26 General: Appears in no apparent distress, Behavior is appropriate for age, cooperative. ja5 Neurological: Level of Consciousness is awake, alert. Cardiovascular: Capillary refill < 3 seconds Heart tones S1 S2 present Rhythm is sinus rhythm with unifocal PVCs bigeminal PVCs. Respiratory: Airway is patent Respiratory effort is even, unlabored, Breath sounds are clear bilaterally. Derm: Skin is intact, Skin is pink, warm & dry. 11:49 General: Pt resting on stretcher at this time. Color pink, skin warm and dry. jc4 Respirations easy and full. Saline lock in place. Family members at bedside. Call tovar in reach. 13:23 Reassessment: Patient appears in no apparent distress at this time. reports 9/10 body kr3 pain, all over body he reports. Patient sitting in wheelchair for his comfort. 14:51 General: Pt lying on stretcher with eyes closed, appeared to be asleep. Upon rousing, jc4 patient states that the pain in his chest is currently a "2/10" at this time. Color pink, skin warm and dry. Respirations easy and full. Diet sara jaguar given per request. 16:48 General: Patient is resting, was repositioned for his back pain, warm blankets placed ja5 on back. Patient states that his chest pain is now a 3/10.. 17:45 General: Patient is upset because he had to wait for the Follow-Up labs and ekg, he is ja5 in pain 10/10 at this time. 17:53 General: Pain medication administered, patient in better mood at this time, awaiting ja5 lab results.. 18:15 General: Patient resting with eyes closed in stretcher, pain is decreased to a 8/10. ja5 Patient states he has no needs at this time. Call tovar within reach.. 18:34 General: Appears uncomfortable, Behavior is appropriate for age, cooperative. ja5 Neurological: Level of Consciousness is awake, alert, Oriented to person, place, time. Cardiovascular: Capillary refill < 3 seconds. Respiratory: Airway is patent Respiratory effort is even, unlabored. Derm: Skin is intact, Skin is pink, warm & dry. Vital Signs: 10:59 BP 153 / 74; Pulse 85; Resp 20; Temp 98.3(O); Pulse Ox 96% on R/A; nb2 12:55 BP 132 / 61 (auto/); ja5 12:55 Pulse 78 MON; Pulse Ox 94% ; ja5 13:10 BP 123 / 67 (auto/); ja5 13:10 Pulse 80 MON; Pulse Ox 95% ; ja5 13:24 Pulse 80 MON; Pulse Ox 97% ; ja5 13:25 BP 115 / 56 (auto/); ja5 13:39 Pulse 80 MON; Pulse Ox 94% ; ja5 13:40 BP 130 / 78 (auto/); ja5 13:54 Pulse 84 MON; Pulse Ox 97% ; ja5 13:55 BP 126 / 71 (auto/); ja5 14:10 BP 132 / 94 (auto/); ja5 14:10 Pulse 78 MON; Pulse Ox 96% ; ja5 14:24 Pulse 78 MON; Pulse Ox 94% ; ja5 14:25 BP 110 / 57 (auto/); ja5 14:40 BP 123 / 58 (auto/); ja5 14:40 Pulse 80 MON; Pulse Ox 92% ; ja5 14:49 BP 123 / 58; Pulse 82; Resp 20; Temp 96.7(O); Pulse Ox 95% on R/A; Pain 2/10; jc4 14:54 Pulse 78 MON; Pulse Ox 94% ; ja5 14:55 BP 122 / 58 (auto/); ja5 15:09 Pulse 70 MON; Pulse Ox 93% ; ja5 15:10 BP 119 / 58 (auto/); ja5 15:23 Pulse 78 MON; Pulse Ox 93% ; ja5 15:25 BP 125 / 60 (auto/); ja5 15:39 Pulse 78 MON; Pulse Ox 95% ; ja5 15:40 BP 111 / 69 (auto/); ja5 15:50 Pulse 78 MON; Pulse Ox 96% ; ja5 15:55 BP 111 / 45 (auto/); ja5 16:09 Pulse 60 MON; ja5 16:10 BP 123 / 60 (auto/); ja5 16:24 Pulse 78 MON; Pulse Ox 97% ; ja5 16:25 BP 113 / 56 (auto/); ja5 16:40 BP 126 / 69 (auto/); ja5 16:40 Pulse 82 MON; Pulse Ox 98% ; ja5 16:54 Pulse 80 MON; Pulse Ox 97% ; ja5 16:55 BP 158 / 73 (auto/); ja5 17:10 BP 152 / 70 (auto/); ja5 17:10 Pulse 80 MON; Pulse Ox 97% ; ja5 17:43 Pulse 82 MON; ja5 17:44 BP 126 / 83 (auto/); ja5 18:15 Pain 8/10; ja5 18:43 BP 134 / 66 LA Supine (auto/); Pulse 55; Resp 16; Temp 97.1(T); Pulse Ox 95% on R/A; ja5 Pain 9/10; Vitals: 18:50 Log In Time: April 21, 2016 at 10:59. [facility] ED Course: 10:50 Patient visited by Windy Watters, Data Officer. lbd 10:50 Leroy Triana is Private Physician. lbd 10:50 Patient moved to Waiting lbd 10:51 Ivette Young, RN is Primary Nurse. lbd 10:51 Coral Muller RN is Primary Nurse. lbd 10:51 Linnette Benavidez MD is Attending Physician. sd1 10:51 Patient moved to 9 lbd 10:52 Patient visited by Linnette Benavidez MD. sd1 10:59 Placed in gown. Bed in low position. Call light in reach. Side rails up X2. Cardiac nb2 monitor on. Pulse ox on. NIBP on. 11:00 Patient visited by Christine Kulkarni. nb2 11:00 The patient / caregiver is instructed regarding the plan of care and ED course. [facility] 11:04 Triage Initiated [facility] 11:05 EKG done. (by ED staff). Reviewed by Linnette Benavidez MD. jrd 11:37 ERYTHROCYTE SEDIMENTATION RATE Sent. jc4 11:38 Inserted saline lock: 20 gauge in right antecubital area The patient tolerated the jc4 procedure well. 11:49 Patient visited by Ivette Young RN. jc4 12:15 portable chest Returned. EDMS 13:22 Patient visited by Lupe Winston RN. kr3 13:24 [facility] Payment Agreement was scanned into [employer] and attached to record. mm15 13:37 Patient moved to OBSERVATION sd1 13:49 Patient visited by Christine Kulkarni. nb2 13:49 Diet tray given. kr3 13:49 Diet: Patient given regular meal. Patient given water. nb2 14:36 portable chest Returned. EDMS 17:30 EKG done. (by ED staff). Reviewed by Linnette Benavidez MD. jrd 17:45 Patient visited by Coral Muller,STIVEN. ja5 18:00 CT Chest Without Contrast Returned. EDMS 18:15 Patient visited by Coral Muller RN. ja5 18:38 Leroy Triana is Referral Physician. sd1 18:45 No procedures done that require assistance. ja5 18:49 Patient visited by Justyn Pozo PCA. jrd 19:42 EKG-ADULT Returned. EDMS 19:43 ECG WITH READING ER PHYS Returned. EDMS 22:38 CT Chest Without Contrast Returned. EDMS 04/22 08:08 ECG/EKG was scanned into [employer] and attached to record. gb 08:39 ECG/EKG was scanned into [employer] and attached to record. [facility] Administered Medications: 04/21 13:22 Drug: ketorolac 15 mg [ketorolac 30 mg/mL (1 mL) injection solution (0.5 mL)] Route: kr3 IVP; Site: right antecubital; 14:49 Follow up: BP 123 / 58; Pulse 82 bpm; Resp 20 bpm; Temp 96.7 Oral; Pulse Ox 95% RA; jc4 Pain 2/10 Adult 17:53 Drug: oxyCODONE-acetaminophen 1 tabs [oxycodone-acetaminophen 5 mg-325 mg tablet (1 ja5 tabs)] Route: PO; 18:15 Follow up: Pain 8/10 Adult ja5 Order Results: Lab Order: Basic Metabolic Profile; SPEC'M 04/21/16 11:29 Test: GLUCOSE, FASTING; Value: 208; Range: 70-105; Abnormal: Above high normal; Units: MG/DL; Status: F Test: BLOOD UREA NITROGEN; Value: 20; Range: 7-18; Abnormal: Above high normal; Units: MG/DL; Status: F Test: CREATININE FOR GFR; Value: 1.32; Range: 0.70-1.30; Abnormal: Above high normal; Units: MG/DL; Status: F Test: GLOMERULAR FILTRATION RATE; Value: 59.3; Range: >56; Status: F Test: SODIUM LEVEL; Value: 141; Range: 136-145; Units: MEQ/L; Status: F Test: POTASSIUM SERUM; Value: 3.9; Range: 3.5-5.1; Units: MEQ/L; Status: F Test: CHLORIDE LEVEL; Value: 106; Range: 98-107; Units: MEQ/L; Status: F Test: CARBON DIOXIDE LEVEL; Value: 27; Range: 21-32; Units: MEQ/L; Status: F Test: ANION GAP; Value: 8; Range: 8-16; Units: MEQ/L; Status: F Test: CALCIUM LEVEL; Value: 8.5; Range: 8.5-10.1; Units: MG/DL; Status: F Test Note: ; Units are mL/min/1.73 m2 Chronic Kidney Disease Staging per NKF: Stage I & II GFR >=60 Normal to Mildly Decreased Stage III GFR 30-59 Moderately Decreased Stage IV GFR 15-29 Severely Decreased Stage V GFR <15 Very Little GFR Left ESRD GFR <15 on RN ADMISSIONS Lab Order: CBC with Diff; SPEC'M 04/21/16 11:29 Test: WHITE BLOOD COUNT; Value: 12.1; Range: 4.0-10.0; Abnormal: Above high normal; Units: K/mm3; Status: F Test: RED BLOOD COUNT; Value: 4.56; Range: 4.30-6.10; Units: M/mm3; Status: F Test: HEMOGLOBIN; Value: 11.3; Range: 14.0-18.0; Abnormal: Below low normal; Units: g/dl; Status: F Test: HEMATOCRIT; Value: 37.8; Range: 42.0-52.0; Abnormal: Below low normal; Units: %; Status: F Test: MEAN CORPUSCULAR VOLUME; Value: 82.9; Range: 80.0-96.0; Units: fl; Status: F Test: MEAN CORPUSCULAR HEMOGLOBIN; Value: 24.9; Range: 27.0-33.0; Abnormal: Below low normal; Units: pg; Status: F Test: MEAN CORPUSCULAR HGB CONC; Value: 30.0; Range: 32.0-36.5; Abnormal: Below low normal; Units: g/dl; Status: F Test: RED CELL DISTRIBUTION WIDTH; Value: 16.5; Range: 11.5-14.5; Abnormal: Above high normal; Units: %; Status: F Test: PLATELET COUNT, AUTOMATED; Value: 229; Range: 150-450; Units: k/mm3; Status: F Test: NEUTROPHILS %; Value: 73.2; Range: 36.0-66.0; Abnormal: Above high normal; Units: %; Status: F Test: LYMPH %; Value: 15.9; Range: 24.0-44.0; Abnormal: Below low normal; Units: %; Status: F Test: MONO %; Value: 5.5; Range: 0.0-5.0; Abnormal: Above high normal; Units: %; Status: F Test: EOS %; Value: 3.7; Range: 0.0-3.0; Abnormal: Above high normal; Units: %; Status: F Test: BASO %; Value: 0.3; Range: 0.0-1.0; Units: %; Status: F Test: LARGE UNSTAINED CELL %; Value: 1.4; Range: 0.0-4.0; Units: %; Status: F Test: NEUTROPHILS #; Value: 8.9; Range: 1.8-7.7; Abnormal: Above high normal; Units: K/mm3; Status: F Test: LYMPH #; Value: 1.9; Range: 1.5-4.5; Units: K/mm3; Status: F Test: MONO #; Value: 0.7; Range: 0.0-0.8; Units: K/mm3; Status: F Test: EOS #; Value: 0.4; Range: 0.0-0.50; Units: K/mm3; Status: F Test: BASO #; Value: 0.0; Range: 0.0-0.2; Units: K/mm3; Status: F Test: LARGE UNSTAINED CELL #; Value: 0.2; Range: 0.0-0.4; Units: K/mm3; Status: F Lab Order: Cardiac Injury Profile; SPEC'M 04/21/16 11:29 Test: CPK CREATINE PHOSPHOKINASE; Value: 46; Range: 39-308; Units: U/L; Status: F Test: CK-MB VALUE MASS; Value: 1.0; Range: 0.0-3.6; Units: NG/ML; Status: F Test: MB/CK RELATIVE INDEX; Value: 2.17; Range: < OR =4; Status: F Test Note: ; DIAGNOSIS CRITERIA MMB ng/ml Relative Index (RI) NON-AMI < or = 5 N/A [place] > 5 < or = 4 AMI > 5 > 4 Lab Order: Troponin; [facility] 04/21/16 11:29 Test: TROPONIN I; Value: < 0.02; Range: < 0.10; Units: NG/ML; Status: F Test Note: ; Troponin I Reference Interval for [employer] LOCI: 99th Percentile= 0.00-0.045 ng/ml Risk Stratification: <= 0.10 ng/ml Decreased Risk for Adverse Clinical Events. 0.10-1.50 ng/ml Increased Risk for Adverse Clinical Events. Evaluation of additional criterion and/or repeat testing in 2-6 hours is suggested to rule out myocardial damage. >= 1.50 ng/ml Indicative of Myocardial Injury. Lab Order: ERYTHROCYTE SEDIMENTATION RATE; [facility] 04/21/16 11:29 Test: ERYTHROCYTE SEDIMENTATION RATE; Value: 45; Range: 0-20; Abnormal: Above high normal; Units: mm/hr; Status: F Lab Order: CARDIAC MARKER PANEL; [facility] 04/21/16 17:41 Test: CPK CREATINE PHOSPHOKINASE; Value: 49; Range: 39-308; Units: U/L; Status: F Test: CK-MB VALUE MASS; Value: 1.0; Range: 0.0-3.6; Units: NG/ML; Status: F Test: MB/CK RELATIVE INDEX; Value: 2.04; Range: < OR =4; Status: F Test: TROPONIN I; Value: < 0.02; Range: < 0.10; Units: NG/ML; Status: F Test Note: ; DIAGNOSIS CRITERIA MMB ng/ml Relative Index (RI) NON-AMI < or = 5 N/A [place] > 5 < or = 4 AMI > 5 > 4 Radiology Order: portable chest Test: portable chest REASON FOR EXAMINATION: Chest Pain; PORTABLE CHEST X-RAY: Single view.; ; HISTORY: Chest pain.; ; Comparison chest x-ray January 19, 2016.; ; FINDINGS: Right hemidiaphragm remains elevated. EKG monitoring electrodes; overlie the chest. Prior sternotomy wires are seen. Heart is not felt to be; enlarged. No infiltrate is seen.; ; IMPRESSION: Elevated right hemidiaphragm unchanged. Prior sternotomy. No active; disease.; ; ; Signed by; Francois Miramontes MD 04/21/2016 02:01 P; Radiology Order: EKG-ADULT Test: EKG-ADULT REASON FOR EXAMINATION: Chest Pain; Stationary ECG Study; [facility] - ED; ; Test Date: 2016-04-21; Pat Name: JOSE VILLATORO Department:; Room: -; Gender: M Clerk Rating: leah; : 1955 Requested By: Linnette Benavidez; Order Number: [id number] Reading MD: Linnette Benavidez; Measurements; Intervals [place]; Rate: 82 P: 5; [place]: 171 QRS: -9; QRSD: 89 T: 46; QT: 363; QTc: 424; Interpretive Statements; SINUS RHYTHM WITH FREQUENT ECTOPIC PREMATURE COMPLEXES IN A BIGEMINAL PATTERN; ABNORMAL RHYTHM ECG; NSTTW ABNORMALITY; SIMILAR 01/21/16; Electronically Signed On 04-21-2016 19:28:46 EST by Linnette Benavidez; Radiology Order: CT Chest Without Contrast Test: CT Chest Without Contrast REASON FOR EXAMINATION: Chest Pain; CT study of the chest without contrast:; ; History: Chest pain.; ; Comparison is made with today's chest x-ray.; ; CT findings: The right hemidiaphragm is quite elevated. There is linear; plate-like atelectasis in the right middle lobe and right lower lobe above the; elevated right hemidiaphragm. No infiltrate is seen. No pulmonary mass lesion; is observed. Tracheobronchial tree is unremarkable. No pleural effusion seen.; Prior sternotomy wires are noted. No pericardial fluid is seen. No hilar or; mediastinal mass or adenopathy is observed. There are degenerative disc changes; in the thoracic spine. There is a 1 cm central right hepatic lobe low density; consistent with a small cyst. There is a 2 mm intrarenal calculus in the upper; pole of the right kidney. 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 Postoperative changes in the upper abdomen. Prior sternotomy.; 2 mm intrarenal calculus right kidney upper pole.; ; ; Signed by; Francois Miramontes MD 04/21/2016 10:13 P; Radiology Order: ECG WITH READING ER PHYS Test: ECG WITH READING ER PHYS REASON FOR EXAMINATION: CHEST PAIN(REPEAT EKG NOW); Stationary ECG Study; [facility] - ED; ; Test Date: 2016-04-21; Pat Name: JOSE VILLATORO Department:; Room: -; Gender: M Clerk Rating: leah; : 1955 Requested By: Linnette Benavidez; Order Number: [id number] Reading MD: Linnette Benavidez; Measurements; Intervals [place]; Rate: 81 P: 4; [place]: 159 QRS: -14; QRSD: 86 T: 44; QT: 376; QTc: 437; Interpretive Statements; SINUS RHYTHM WITH FREQUENT VENTRICULAR PREMATURE COMPLEXES IN A BIGEMINAL; PATTERN; NSTTW ABNORMALITY; SIMILAR 04/21/16 11:02; Electronically Signed On 04-21-2016 19:34:57 EST by Linnette Benavidez; Outcome: 18:38 Discharge ordered by Provider. sd1 18:45 Discharge Assessment: patient administered narcotics - yes. Pt provided with safe ja5 discharge. The following High Risk Discharge criteria are identified: None. Condition: stable. CT Study completed. Property :Personal belongings accompany Pt. 19:05 Discharge instructions given to patient, Instructed on discharge instructions, follow ja5 up and referral plans. medication usage, no driving heavy equipment, Demonstrated understanding of instructions, medications, 19:05 Patient left the ED. ja5 Signatures: Dispatcher [employer] EDMS Linnette Benavidez MD MD sd1 Windy Watters, Data Officer Unit lbd Amelia Manley, Reg Reg gb Lupe Winston,RN RN [email or web address] Ivette Young, RN RN [email or web address] Opal Hernandez [id number] Justyn Pozo, HOT END OPERATOR HOT END OPERATOR jrd Linnette Paris Nicole nb2 Coral Muller,RN RN ja5 Corrections: (The following items were deleted from the chart) 11:36 11:31 ERYTHROCYTE SEDIMENTATION RATE+LAB sent. jc4 EDMS Chart Complete MTDD
--- NOTE | 2016-04-23 20:07 | EDDOCDS ---
Physician Documentation [facility] Name: Jose Villatoro Age: 60 yrs Sex: Male : 1955 Arrival Date: 04/21/2016 Time: 10:48 Bed OBSERVATION Private MD: Leroy Triana Disposition: 04/21/16 18:38 Discharged to Home/Self Care. Impression: Chest pain on breathing. - Condition is Stable. - Discharge Instructions: Angina Pectoris, Nonspecific Chest Pain, Chest Wall Pain, Costochondritis, Angina Pectoris, [id number]. - Medication Reconciliation, Local Pharmacy Hours form. - Follow up: Leroy Triana; When: 2 - 3 days. - Problem is new. - Symptoms have improved. Historical: - Allergies: PENICILLINS; - Home Meds: 1. gabapentin 600 mg Oral tab 1 tab 3 times per day (Last dose: 04/21/2016 09:00) 2. metformin 500 mg Oral Tb24 2 tabs 2 times per day (Last dose: 04/21/2016 09:00) 3. atorvastatin 40 mg oral tab 1 tab sunday and for two weeks begining this week. (Last dose: 04/20/2016 09:00) 4. aspirin 81 mg Oral chew 1 tab once daily (Last dose: 04/21/2016 09:00) 5. [place] 10-325 mg Oral tab 1 tab every 6 hours as needed (Last dose: 04/21/2016 09:00) 6. clopidogrel 75 mg oral tab 1 tab once daily (Last dose: 04/21/2016 09:00) 7. duloxetine 60 mg Oral cpDR 1 cap once daily (Last dose: 04/21/2016 09:00) 8. voltaren gel 1% as needed (Last dose: 04/16/2016) 9. omeprazole 40 mg Oral cpDR 1 cap once daily (Last dose: 04/21/2016 09:00) 10. CoQ-10 100 mg oral cap 1 cap twice a day (Last dose: 04/21/2016 09:00) 11. metoprolol tartrate 50 mg Oral tab 1 tab 2 times per day (Last dose: 04/21/2016 09:00) 12. nitroglycerin 0.4 mg SL subl 1 tab PRN (Last dose: 12/15/2014) 13. Tylenol PM 500 mg oral soln 1 tablet as needed 1 to 2 tablets (Last dose: 03/30/2016) 14. allopurinol 300 mg Oral tab 1 tab once daily (Last dose: 04/21/2016 09:00) - PMHx: Arthritis; CAD; Chronic Back pain; Depression; Diabetes - NIDDM: uncontrolled; Gout; Hypercholesterolemia; Hypertension; nerve pain; Palpitations; Anemia; - PSHx: CABG; pericardial window; - Social history: Smoking status: Patient states former smoker of tobacco. No barriers to communication noted, The patient speaks fluent [place]. - Family history: Not pertinent. - : The pt / caregiver states he / she is on anticoagulants: Plavix. Home medication list is obtained from the patient. - Exposure Risk Screening:: None identified. Vital Signs: 04/21 10:59 BP 153 / 74; Pulse 85; Resp 20; Temp 98.3(O); Pulse Ox 96% on R/A; nb2 12:55 BP 132 / 61 (auto/); ja5 12:55 Pulse 78 MON; Pulse Ox 94% ; ja5 13:10 BP 123 / 67 (auto/); ja5 13:10 Pulse 80 MON; Pulse Ox 95% ; ja5 13:24 Pulse 80 MON; Pulse Ox 97% ; ja5 13:25 BP 115 / 56 (auto/); ja5 13:39 Pulse 80 MON; Pulse Ox 94% ; ja5 13:40 BP 130 / 78 (auto/); ja5 13:54 Pulse 84 MON; Pulse Ox 97% ; ja5 13:55 BP 126 / 71 (auto/); ja5 14:10 BP 132 / 94 (auto/); ja5 14:10 Pulse 78 MON; Pulse Ox 96% ; ja5 14:24 Pulse 78 MON; Pulse Ox 94% ; ja5 14:25 BP 110 / 57 (auto/); ja5 14:40 BP 123 / 58 (auto/); ja5 14:40 Pulse 80 MON; Pulse Ox 92% ; ja5 14:49 BP 123 / 58; Pulse 82; Resp 20; Temp 96.7(O); Pulse Ox 95% on R/A; Pain 2/10; jc4 14:54 Pulse 78 MON; Pulse Ox 94% ; ja5 14:55 BP 122 / 58 (auto/); ja5 15:09 Pulse 70 MON; Pulse Ox 93% ; ja5 15:10 BP 119 / 58 (auto/); ja5 15:23 Pulse 78 MON; Pulse Ox 93% ; ja5 15:25 BP 125 / 60 (auto/); ja5 15:39 Pulse 78 MON; Pulse Ox 95% ; ja5 15:40 BP 111 / 69 (auto/); ja5 15:50 Pulse 78 MON; Pulse Ox 96% ; ja5 15:55 BP 111 / 45 (auto/); ja5 16:09 Pulse 60 MON; ja5 16:10 BP 123 / 60 (auto/); ja5 16:24 Pulse 78 MON; Pulse Ox 97% ; ja5 16:25 BP 113 / 56 (auto/); ja5 16:40 BP 126 / 69 (auto/); ja5 16:40 Pulse 82 MON; Pulse Ox 98% ; ja5 16:54 Pulse 80 MON; Pulse Ox 97% ; ja5 16:55 BP 158 / 73 (auto/); ja5 17:10 BP 152 / 70 (auto/); ja5 17:10 Pulse 80 MON; Pulse Ox 97% ; ja5 17:43 Pulse 82 MON; ja5 17:44 BP 126 / 83 (auto/); ja5 18:15 Pain 8/10; ja5 18:43 BP 134 / 66 LA Supine (auto/); Pulse 55; Resp 16; Temp 97.1(T); Pulse Ox 95% on R/A; ja5 Pain 9/10; MDM: 10:52 Sprinkler Driver/Pulse Ox/q 30 min VS ordered. sd1 10:52 IV Saline Lock ordered. sd1 10:52 Rhythm Strip to chart ordered. sd1 10:52 Undress patient appropriately for examination ordered. sd1 10:53 Basic Metabolic Profile Ordered. EDMS 10:53 CBC with Diff Ordered. EDMS 10:53 Cardiac Injury Profile Ordered. EDMS 10:53 Troponin Ordered. EDMS 10:54 portable chest Ordered. EDMS 10:54 ECG WITH READING ER PHYS+CARDIAG ordered. EDMS 11:10 Financial registration complete. mm15 11:36 ERYTHROCYTE SEDIMENTATION RATE Ordered. EDMS 11:42 CBC with Diff Reviewed. sd1 12:22 Basic Metabolic Profile Reviewed. sd1 12:22 CBC with Diff Reviewed. sd1 12:22 Cardiac Injury Profile Reviewed. sd1 12:22 Troponin Reviewed. sd1 12:22 portable chest Reviewed. sd1 12:38 CBC with Diff Reviewed. sd1 12:38 ERYTHROCYTE SEDIMENTATION RATE Reviewed. sd1 12:43 ketorolac 15 mg IVP once ordered. sd1 13:23 CONSISTENT CARBOHYDRATE+DIET ordered. EDMS 13:24 [facility] Payment Agreement was scanned into [employer] and attached to record. mm15 16:22 portable chest Reviewed. sd1 16:24 CT Chest Without Contrast Ordered. EDMS 17:28 Repeat EKG (put time details section) ordered. sd1 17:28 Redraw CIP &Troponin (put time in details section) ordered. sd1 17:29 Repeat EKG (put time details section) complete. lbd 17:29 Redraw CIP &Troponin (put time in details section) complete. lbd 17:32 CARDIAC MARKER PANEL Ordered. EDMS 17:34 ECG WITH READING ER PHYS ordered. EDMS 17:45 oxyCODONE-acetaminophen 5 mg-325 mg 1 tabs PO once ordered. sd1 18:19 CT Chest Without Contrast Reviewed. sd1 18:27 CARDIAC MARKER PANEL Reviewed. sd1 04/22 08:08 ECG/EKG was scanned into [employer] and attached to record. gb 08:39 ECG/EKG was scanned into [employer] and attached to record. [facility] Administered Medications: 04/21 13:22 Drug: ketorolac 15 mg [ketorolac 30 mg/mL (1 mL) injection solution (0.5 mL)] Route: kr3 IVP; Site: right antecubital; 14:49 Follow up: BP 123 / 58; Pulse 82 bpm; Resp 20 bpm; Temp 96.7 Oral; Pulse Ox 95% RA; jc4 Pain 2/10 Adult 17:53 Drug: oxyCODONE-acetaminophen 1 tabs [oxycodone-acetaminophen 5 mg-325 mg tablet (1 ja5 tabs)] Route: PO; 18:15 Follow up: Pain 8/10 Adult ja5 Signatures: Dispatcher [employer] EDMS Linnette Benavidez MD MD sd1 Windy Watters, [place] [employer] Unit lbd Amelia Manley, Reg Reg gb Opal Hernandez mm15 Linnette Paris JessicaRN RN ja5 Lupe Winston RN kr3 Ivette Young RN jc4 The chart was reviewed and I authenticate all verbal orders and agree with the evaluation and treatment provided.Corrections: (The following items were deleted from the chart) 11:36 11:05 ERYTHROCYTE SEDIMENTATION RATE+LAB ordered. EDMS EDMS Attachments: 13:24 [facility] Payment Agreement mm15 04/22 08:08 ECG/EKG gb 08:39 ECG/EKG [facility] Chart Complete MTDD
--- NOTE | 2016-04-25 14:22 | EDDOCDS ---
Nurse's Notes [facility] Name: Jose Villatoro Age: 60 yrs Sex: Male : 1955 Arrival Date: 04/21/2016 Time: 10:48 Bed OBSERVATION Private MD: Leroy Triana Diagnosis: Chest pain on breathing Presentation: 04/21 10:59 Presenting complaint: Patient states: Has chest pain to when he breathes. This pain ja5 began last night around 8pm. 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 Adult Sepsis Screening: The patient does not have new or worsening altered mentation. Patient's respiratory rate is less than 22. Systolic blood pressure is greater than 100. Patient has a qSOFA score of 0- Negative Sepsis Screen. Suicide/Homicide risk assessment- the patient denies having any suicidal and/or homicidal ideations and does not present with any other emotional, behavioral or mental health complaints. Status: Patient is not a electric range servicer or dependent. Transition of care: patient was not received from another setting of care. 10:59 Acuity: WARREN Level 2 ja5 10:59 Method Of Arrival: Walkin/Carried/Asstd ja5 Triage Assessment: 11:23 General: Appears in no apparent distress, Behavior is appropriate for age, cooperative. ja5 Pain: Location: chest Pain currently is 5 out of 10 on a pain scale. Quality of pain is described as pressure. Pt Declines HIV testing. Neurological: Level of Consciousness is awake, alert, Oriented to person, place, time. Cardiovascular: Capillary refill < 3 seconds Chest pain is described as Pain is 5 out of 10 on a pain scale. radiates Does not radiate. episodes when breathing began last night 8pm. Respiratory: Airway is patent Respiratory effort is even, unlabored, Respiratory pattern is regular. Derm: Skin is intact, Skin is pink, warm & dry. Historical: - Allergies: PENICILLINS; - Home Meds: 1. gabapentin 600 mg Oral tab 1 tab 3 times per day (Last dose: 04/21/2016 09:00) 2. metformin 500 mg Oral Tb24 2 tabs 2 times per day (Last dose: 04/21/2016 09:00) 3. atorvastatin 40 mg oral tab 1 tab sunday and for two weeks begining this week. (Last dose: 04/20/2016 09:00) 4. aspirin 81 mg Oral chew 1 tab once daily (Last dose: 04/21/2016 09:00) 5. Kopperl 10-325 mg Oral tab 1 tab every 6 hours as needed (Last dose: 04/21/2016 09:00) 6. clopidogrel 75 mg oral tab 1 tab once daily (Last dose: 04/21/2016 09:00) 7. duloxetine 60 mg Oral cpDR 1 cap once daily (Last dose: 04/21/2016 09:00) 8. voltaren gel 1% as needed (Last dose: 04/16/2016) 9. omeprazole 40 mg Oral cpDR 1 cap once daily (Last dose: 04/21/2016 09:00) 10. CoQ-10 100 mg oral cap 1 cap twice a day (Last dose: 04/21/2016 09:00) 11. metoprolol tartrate 50 mg Oral tab 1 tab 2 times per day (Last dose: 04/21/2016 09:00) 12. nitroglycerin 0.4 mg SL subl 1 tab PRN (Last dose: 12/15/2014) 13. Tylenol PM 500 mg oral soln 1 tablet as needed 1 to 2 tablets (Last dose: 03/30/2016) 14. allopurinol 300 mg Oral tab 1 tab once daily (Last dose: 04/21/2016 09:00) - PMHx: Arthritis; CAD; Chronic Back pain; Depression; Diabetes - NIDDM: uncontrolled; Gout; Hypercholesterolemia; Hypertension; nerve pain; Palpitations; Anemia; - PSHx: CABG; pericardial window; - Social history: Smoking status: Patient states former smoker of tobacco. No barriers to communication noted, The patient speaks fluent [place]. - Family history: Not pertinent. - : The pt / caregiver states he / she is on anticoagulants: Plavix. Home medication list is obtained from the patient. - Exposure Risk Screening:: None identified. Screenin:29 Screening information is obtained from the patient. Fall risk: No risks identified. ja5 Assistance ADL's: requires no assistance with activities of daily living. Abuse/DV Screen: The patient / caregiver reports he/she is: not in a situation that causes fear, pain or injury. Nutritional screening: On diabetic diet. Advance Directives: Currently, there is no health care proxy. There is no living will. There is no Power of Dining Chair Seat Cushion Trimmer. home support is adequate. 11:32 Advance Directives: There is no active DNR order. ja5 Assessment: 11:26 General: Appears in no apparent distress, Behavior is appropriate for age, cooperative. ja5 Neurological: Level of Consciousness is awake, alert. Cardiovascular: Capillary refill < 3 seconds Heart tones S1 S2 present Rhythm is sinus rhythm with unifocal PVCs bigeminal PVCs. Respiratory: Airway is patent Respiratory effort is even, unlabored, Breath sounds are clear bilaterally. Derm: Skin is intact, Skin is pink, warm & dry. 11:49 General: Pt resting on stretcher at this time. Color pink, skin warm and dry. jc4 Respirations easy and full. Saline lock in place. Family members at bedside. Call tovar in reach. 13:23 Reassessment: Patient appears in no apparent distress at this time. reports 9/10 body kr3 pain, all over body he reports. Patient sitting in wheelchair for his comfort. 14:51 General: Pt lying on stretcher with eyes closed, appeared to be asleep. Upon rousing, jc4 patient states that the pain in his chest is currently a "2/10" at this time. Color pink, skin warm and dry. Respirations easy and full. Diet sara jaguar given per request. 16:48 General: Patient is resting, was repositioned for his back pain, warm blankets placed ja5 on back. Patient states that his chest pain is now a 3/10.. 17:45 General: Patient is upset because he had to wait for the Follow-Up labs and ekg, he is ja5 in pain 10/10 at this time. 17:53 General: Pain medication administered, patient in better mood at this time, awaiting ja5 lab results.. 18:15 General: Patient resting with eyes closed in stretcher, pain is decreased to a 8/10. ja5 Patient states he has no needs at this time. Call tovar within reach.. 18:34 General: Appears uncomfortable, Behavior is appropriate for age, cooperative. ja5 Neurological: Level of Consciousness is awake, alert, Oriented to person, place, time. Cardiovascular: Capillary refill < 3 seconds. Respiratory: Airway is patent Respiratory effort is even, unlabored. Derm: Skin is intact, Skin is pink, warm & dry. Vital Signs: 10:59 BP 153 / 74; Pulse 85; Resp 20; Temp 98.3(O); Pulse Ox 96% on R/A; nb2 12:55 BP 132 / 61 (auto/); ja5 12:55 Pulse 78 MON; Pulse Ox 94% ; ja5 13:10 BP 123 / 67 (auto/); ja5 13:10 Pulse 80 MON; Pulse Ox 95% ; ja5 13:24 Pulse 80 MON; Pulse Ox 97% ; ja5 13:25 BP 115 / 56 (auto/); ja5 13:39 Pulse 80 MON; Pulse Ox 94% ; ja5 13:40 BP 130 / 78 (auto/); ja5 13:54 Pulse 84 MON; Pulse Ox 97% ; ja5 13:55 BP 126 / 71 (auto/); ja5 14:10 BP 132 / 94 (auto/); ja5 14:10 Pulse 78 MON; Pulse Ox 96% ; ja5 14:24 Pulse 78 MON; Pulse Ox 94% ; ja5 14:25 BP 110 / 57 (auto/); ja5 14:40 BP 123 / 58 (auto/); ja5 14:40 Pulse 80 MON; Pulse Ox 92% ; ja5 14:49 BP 123 / 58; Pulse 82; Resp 20; Temp 96.7(O); Pulse Ox 95% on R/A; Pain 2/10; jc4 14:54 Pulse 78 MON; Pulse Ox 94% ; ja5 14:55 BP 122 / 58 (auto/); ja5 15:09 Pulse 70 MON; Pulse Ox 93% ; ja5 15:10 BP 119 / 58 (auto/); ja5 15:23 Pulse 78 MON; Pulse Ox 93% ; ja5 15:25 BP 125 / 60 (auto/); ja5 15:39 Pulse 78 MON; Pulse Ox 95% ; ja5 15:40 BP 111 / 69 (auto/); ja5 15:50 Pulse 78 MON; Pulse Ox 96% ; ja5 15:55 BP 111 / 45 (auto/); ja5 16:09 Pulse 60 MON; ja5 16:10 BP 123 / 60 (auto/); ja5 16:24 Pulse 78 MON; Pulse Ox 97% ; ja5 16:25 BP 113 / 56 (auto/); ja5 16:40 BP 126 / 69 (auto/); ja5 16:40 Pulse 82 MON; Pulse Ox 98% ; ja5 16:54 Pulse 80 MON; Pulse Ox 97% ; ja5 16:55 BP 158 / 73 (auto/); ja5 17:10 BP 152 / 70 (auto/); ja5 17:10 Pulse 80 MON; Pulse Ox 97% ; ja5 17:43 Pulse 82 MON; ja5 17:44 BP 126 / 83 (auto/); ja5 18:15 Pain 8/10; ja5 18:43 BP 134 / 66 LA Supine (auto/); Pulse 55; Resp 16; Temp 97.1(T); Pulse Ox 95% on R/A; ja5 Pain 9/10; Vitals: 18:50 Log In Time: April 21, 2016 at 10:59. [facility] ED Course: 10:50 Patient visited by Windy Watters, Torch Solderer. lbd 10:50 Leroy Triana is Private Physician. lbd 10:50 Patient moved to Waiting lbd 10:51 Ivette Young, RN is Primary Nurse. lbd 10:51 Coral Muller RN is Primary Nurse. lbd 10:51 Linnette Benavidez MD is Attending Physician. sd1 10:51 Patient moved to 9 lbd 10:52 Patient visited by Linnette Benavidez MD. sd1 10:59 Placed in gown. Bed in low position. Call light in reach. Side rails up X2. Cardiac nb2 monitor on. Pulse ox on. NIBP on. 11:00 Patient visited by Christine Kulkarni. nb2 11:00 The patient / caregiver is instructed regarding the plan of care and ED course. [facility] 11:04 Triage Initiated [facility] 11:05 EKG done. (by ED staff). Reviewed by Linnette Benavidez MD. jrd 11:37 ERYTHROCYTE SEDIMENTATION RATE Sent. jc4 11:38 Inserted saline lock: 20 gauge in right antecubital area The patient tolerated the jc4 procedure well. 11:49 Patient visited by Ivette Young RN. jc4 12:15 portable chest Returned. EDMS 13:22 Patient visited by Lupe Winston RN. kr3 13:24 [facility] Payment Agreement was scanned into [employer] and attached to record. mm15 13:37 Patient moved to OBSERVATION sd1 13:49 Patient visited by Christine Kulkarni. nb2 13:49 Diet tray given. kr3 13:49 Diet: Patient given regular meal. Patient given water. nb2 14:36 portable chest Returned. EDMS 17:30 EKG done. (by ED staff). Reviewed by Linnette Benavidez MD. jrd 17:45 Patient visited by Coral Muller,STIVEN. ja5 18:00 CT Chest Without Contrast Returned. EDMS 18:15 Patient visited by Coral Muller RN. ja5 18:38 Leroy Triana is Referral Physician. sd1 18:45 No procedures done that require assistance. ja5 18:49 Patient visited by Justyn Pozo PCA. jrd 19:42 EKG-ADULT Returned. EDMS 19:43 ECG WITH READING ER PHYS Returned. EDMS 22:38 CT Chest Without Contrast Returned. EDMS 04/22 08:08 ECG/EKG was scanned into [employer] and attached to record. gb 08:39 ECG/EKG was scanned into [employer] and attached to record. [facility] Administered Medications: 04/21 13:22 Drug: ketorolac 15 mg [ketorolac 30 mg/mL (1 mL) injection solution (0.5 mL)] Route: kr3 IVP; Site: right antecubital; 14:49 Follow up: BP 123 / 58; Pulse 82 bpm; Resp 20 bpm; Temp 96.7 Oral; Pulse Ox 95% RA; jc4 Pain 2/10 Adult 17:53 Drug: oxyCODONE-acetaminophen 1 tabs [oxycodone-acetaminophen 5 mg-325 mg tablet (1 ja5 tabs)] Route: PO; 18:15 Follow up: Pain 8/10 Adult ja5 Order Results: Lab Order: Basic Metabolic Profile; SPEC'M 04/21/16 11:29 Test: GLUCOSE, FASTING; Value: 208; Range: 70-105; Abnormal: Above high normal; Units: MG/DL; Status: F Test: BLOOD UREA NITROGEN; Value: 20; Range: 7-18; Abnormal: Above high normal; Units: MG/DL; Status: F Test: CREATININE FOR GFR; Value: 1.32; Range: 0.70-1.30; Abnormal: Above high normal; Units: MG/DL; Status: F Test: GLOMERULAR FILTRATION RATE; Value: 59.3; Range: >56; Status: F Test: SODIUM LEVEL; Value: 141; Range: 136-145; Units: MEQ/L; Status: F Test: POTASSIUM SERUM; Value: 3.9; Range: 3.5-5.1; Units: MEQ/L; Status: F Test: CHLORIDE LEVEL; Value: 106; Range: 98-107; Units: MEQ/L; Status: F Test: CARBON DIOXIDE LEVEL; Value: 27; Range: 21-32; Units: MEQ/L; Status: F Test: ANION GAP; Value: 8; Range: 8-16; Units: MEQ/L; Status: F Test: CALCIUM LEVEL; Value: 8.5; Range: 8.5-10.1; Units: MG/DL; Status: F Test Note: ; Units are mL/min/1.73 m2 Chronic Kidney Disease Staging per NKF: Stage I & II GFR >=60 Normal to Mildly Decreased Stage III GFR 30-59 Moderately Decreased Stage IV GFR 15-29 Severely Decreased Stage V GFR <15 Very Little GFR Left ESRD GFR <15 on CAREER DEVELOPMENT FACILITATOR Lab Order: CBC with Diff; SPEC'M 04/21/16 11:29 Test: WHITE BLOOD COUNT; Value: 12.1; Range: 4.0-10.0; Abnormal: Above high normal; Units: K/mm3; Status: F Test: RED BLOOD COUNT; Value: 4.56; Range: 4.30-6.10; Units: M/mm3; Status: F Test: HEMOGLOBIN; Value: 11.3; Range: 14.0-18.0; Abnormal: Below low normal; Units: g/dl; Status: F Test: HEMATOCRIT; Value: 37.8; Range: 42.0-52.0; Abnormal: Below low normal; Units: %; Status: F Test: MEAN CORPUSCULAR VOLUME; Value: 82.9; Range: 80.0-96.0; Units: fl; Status: F Test: MEAN CORPUSCULAR HEMOGLOBIN; Value: 24.9; Range: 27.0-33.0; Abnormal: Below low normal; Units: pg; Status: F Test: MEAN CORPUSCULAR HGB CONC; Value: 30.0; Range: 32.0-36.5; Abnormal: Below low normal; Units: g/dl; Status: F Test: RED CELL DISTRIBUTION WIDTH; Value: 16.5; Range: 11.5-14.5; Abnormal: Above high normal; Units: %; Status: F Test: PLATELET COUNT, AUTOMATED; Value: 229; Range: 150-450; Units: k/mm3; Status: F Test: NEUTROPHILS %; Value: 73.2; Range: 36.0-66.0; Abnormal: Above high normal; Units: %; Status: F Test: LYMPH %; Value: 15.9; Range: 24.0-44.0; Abnormal: Below low normal; Units: %; Status: F Test: MONO %; Value: 5.5; Range: 0.0-5.0; Abnormal: Above high normal; Units: %; Status: F Test: EOS %; Value: 3.7; Range: 0.0-3.0; Abnormal: Above high normal; Units: %; Status: F Test: BASO %; Value: 0.3; Range: 0.0-1.0; Units: %; Status: F Test: LARGE UNSTAINED CELL %; Value: 1.4; Range: 0.0-4.0; Units: %; Status: F Test: NEUTROPHILS #; Value: 8.9; Range: 1.8-7.7; Abnormal: Above high normal; Units: K/mm3; Status: F Test: LYMPH #; Value: 1.9; Range: 1.5-4.5; Units: K/mm3; Status: F Test: MONO #; Value: 0.7; Range: 0.0-0.8; Units: K/mm3; Status: F Test: EOS #; Value: 0.4; Range: 0.0-0.50; Units: K/mm3; Status: F Test: BASO #; Value: 0.0; Range: 0.0-0.2; Units: K/mm3; Status: F Test: LARGE UNSTAINED CELL #; Value: 0.2; Range: 0.0-0.4; Units: K/mm3; Status: F Lab Order: Cardiac Injury Profile; SPEC'M 04/21/16 11:29 Test: CPK CREATINE PHOSPHOKINASE; Value: 46; Range: 39-308; Units: U/L; Status: F Test: CK-MB VALUE MASS; Value: 1.0; Range: 0.0-3.6; Units: NG/ML; Status: F Test: MB/CK RELATIVE INDEX; Value: 2.17; Range: < OR =4; Status: F Test Note: ; DIAGNOSIS CRITERIA MMB ng/ml Relative Index (RI) NON-AMI < or = 5 N/A [place] > 5 < or = 4 AMI > 5 > 4 Lab Order: Troponin; [facility]' 04/21/16 11:29 Test: TROPONIN I; Value: < 0.02; Range: < 0.10; Units: NG/ML; Status: F Test Note: ; Troponin I Reference Interval for [employer] LOCI: 99th Percentile= 0.00-0.045 ng/ml Risk Stratification: <= 0.10 ng/ml Decreased Risk for Adverse Clinical Events. 0.10-1.50 ng/ml Increased Risk for Adverse Clinical Events. Evaluation of additional criterion and/or repeat testing in 2-6 hours is suggested to rule out myocardial damage. >= 1.50 ng/ml Indicative of Myocardial Injury. Lab Order: ERYTHROCYTE SEDIMENTATION RATE; [facility]' 04/21/16 11:29 Test: ERYTHROCYTE SEDIMENTATION RATE; Value: 45; Range: 0-20; Abnormal: Above high normal; Units: mm/hr; Status: F Lab Order: CARDIAC MARKER PANEL; [facility]' 04/21/16 17:41 Test: CPK CREATINE PHOSPHOKINASE; Value: 49; Range: 39-308; Units: U/L; Status: F Test: CK-MB VALUE MASS; Value: 1.0; Range: 0.0-3.6; Units: NG/ML; Status: F Test: MB/CK RELATIVE INDEX; Value: 2.04; Range: < OR =4; Status: F Test: TROPONIN I; Value: < 0.02; Range: < 0.10; Units: NG/ML; Status: F Test Note: ; DIAGNOSIS CRITERIA MMB ng/ml Relative Index (RI) NON-AMI < or = 5 N/A [place]ONE > 5 < or = 4 AMI > 5 > 4 Radiology Order: portable chest Test: portable chest REASON FOR EXAMINATION: Chest Pain; PORTABLE CHEST X-RAY: Single view.; ; HISTORY: Chest pain.; ; Comparison chest x-ray January 19, 2016.; ; FINDINGS: Right hemidiaphragm remains elevated. EKG monitoring electrodes; overlie the chest. Prior sternotomy wires are seen. Heart is not felt to be; enlarged. No infiltrate is seen.; ; IMPRESSION: Elevated right hemidiaphragm unchanged. Prior sternotomy. 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; : 1955 Requested By: Linnette Benavidez; Order Number: [id number] Reading MD: Linnette Benavidez; Measurements; Intervals [place]; Rate: 82 P: 5; [place]: 171 QRS: -9; QRSD: 89 T: 46; QT: 363; QTc: 424; Interpretive Statements; SINUS RHYTHM WITH FREQUENT ECTOPIC PREMATURE COMPLEXES IN A BIGEMINAL PATTERN; ABNORMAL RHYTHM ECG; NSTTW ABNORMALITY; SIMILAR 01/21/16; Electronically Signed On 04-21-2016 19:28:46 EST by Linnette Benavidez; Radiology Order: CT Chest Without Contrast Test: CT Chest Without Contrast REASON FOR EXAMINATION: Chest Pain; CT study of the chest without contrast:; ; History: Chest pain.; ; Comparison is made with today's chest x-ray.; ; CT findings: The right hemidiaphragm is quite elevated. There is linear; plate-like atelectasis in the right middle lobe and right lower lobe above the; elevated right hemidiaphragm. No infiltrate is seen. No pulmonary mass lesion; is observed. Tracheobronchial tree is unremarkable. No pleural effusion seen.; Prior sternotomy wires are noted. No pericardial fluid is seen. No hilar or; mediastinal mass or adenopathy is observed. There are degenerative disc changes; in the thoracic spine. There is a 1 cm central right hepatic lobe low density; consistent with a small cyst. There is a 2 mm intrarenal calculus in the upper; pole of the right kidney. 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 Postoperative changes in the upper abdomen. 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 sd1 18:45 Discharge Assessment: patient administered narcotics - yes. Pt provided with safe ja5 discharge. The following High Risk Discharge criteria are identified: None. Condition: stable. CT Study completed. Property :Personal belongings accompany Pt. 19:05 Discharge instructions given to patient, Instructed on discharge instructions, follow ja5 up and referral plans. medication usage, no driving heavy equipment, Demonstrated understanding of instructions, medications, 19:05 Patient left the ED. ja5 Signatures: Dispatcher [employer] EDMS Linnette Benavidez MD MD sd1 Windy Watters, Torch Solderer Unit lbd Amelia Manley, Reg Reg gb Lupe Winston,RN RN [email or web address] Ivette Young, RN RN [email or web address] Opal Hernandez [id number] Justyn Pozo, HOUSEKEEPER CLEANING COOKING HOUSEKEEPER CLEANING COOKING jrd Linnette Paris Nicole nb2 Coral Muller,RN RN ja5 Corrections: (The following items were deleted from the chart) 11:36 11:31 ERYTHROCYTE SEDIMENTATION RATE+LAB sent. jc4 EDMS Chart Complete MTDD
--- NOTE | 2016-04-25 14:22 | EDDOCDS ---
Physician Documentation [facility] Name: Jose Villatoro Age: 60 yrs Sex: Male : 1955 Arrival Date: 04/21/2016 Time: 10:48 Bed OBSERVATION Private MD: Leroy Triana Disposition: 04/21/16 18:38 Discharged to Home/Self Care. Impression: Chest pain on breathing. - Condition is Stable. - Discharge Instructions: Angina Pectoris, Nonspecific Chest Pain, Chest Wall Pain, Costochondritis, Angina Pectoris, [id number]. - Medication Reconciliation, Local Pharmacy Hours form. - Follow up: Leroy Triana; When: 2 - 3 days. - Problem is new. - Symptoms have improved. Historical: - Allergies: PENICILLINS; - Home Meds: 1. gabapentin 600 mg Oral tab 1 tab 3 times per day (Last dose: 04/21/2016 09:00) 2. metformin 500 mg Oral Tb24 2 tabs 2 times per day (Last dose: 04/21/2016 09:00) 3. atorvastatin 40 mg oral tab 1 tab sunday and for two weeks begining this week. (Last dose: 04/20/2016 09:00) 4. aspirin 81 mg Oral chew 1 tab once daily (Last dose: 04/21/2016 09:00) 5. [place] 10-325 mg Oral tab 1 tab every 6 hours as needed (Last dose: 04/21/2016 09:00) 6. clopidogrel 75 mg oral tab 1 tab once daily (Last dose: 04/21/2016 09:00) 7. duloxetine 60 mg Oral cpDR 1 cap once daily (Last dose: 04/21/2016 09:00) 8. voltaren gel 1% as needed (Last dose: 04/16/2016) 9. omeprazole 40 mg Oral cpDR 1 cap once daily (Last dose: 04/21/2016 09:00) 10. CoQ-10 100 mg oral cap 1 cap twice a day (Last dose: 04/21/2016 09:00) 11. metoprolol tartrate 50 mg Oral tab 1 tab 2 times per day (Last dose: 04/21/2016 09:00) 12. nitroglycerin 0.4 mg SL subl 1 tab PRN (Last dose: 12/15/2014) 13. Tylenol PM 500 mg oral soln 1 tablet as needed 1 to 2 tablets (Last dose: 03/30/2016) 14. allopurinol 300 mg Oral tab 1 tab once daily (Last dose: 04/21/2016 09:00) - PMHx: Arthritis; CAD; Chronic Back pain; Depression; Diabetes - NIDDM: uncontrolled; Gout; Hypercholesterolemia; Hypertension; nerve pain; Palpitations; Anemia; - PSHx: CABG; pericardial window; - Social history: Smoking status: Patient states former smoker of tobacco. No barriers to communication noted, The patient speaks fluent Nigerian. - Family history: Not pertinent. - : The pt / caregiver states he / she is on anticoagulants: Plavix. Home medication list is obtained from the patient. - Exposure Risk Screening:: None identified. Vital Signs: 04/21 10:59 BP 153 / 74; Pulse 85; Resp 20; Temp 98.3(O); Pulse Ox 96% on R/A; nb2 12:55 BP 132 / 61 (auto/); ja5 12:55 Pulse 78 MON; Pulse Ox 94% ; ja5 13:10 BP 123 / 67 (auto/); ja5 13:10 Pulse 80 MON; Pulse Ox 95% ; ja5 13:24 Pulse 80 MON; Pulse Ox 97% ; ja5 13:25 BP 115 / 56 (auto/); ja5 13:39 Pulse 80 MON; Pulse Ox 94% ; ja5 13:40 BP 130 / 78 (auto/); ja5 13:54 Pulse 84 MON; Pulse Ox 97% ; ja5 13:55 BP 126 / 71 (auto/); ja5 14:10 BP 132 / 94 (auto/); ja5 14:10 Pulse 78 MON; Pulse Ox 96% ; ja5 14:24 Pulse 78 MON; Pulse Ox 94% ; ja5 14:25 BP 110 / 57 (auto/); ja5 14:40 BP 123 / 58 (auto/); ja5 14:40 Pulse 80 MON; Pulse Ox 92% ; ja5 14:49 BP 123 / 58; Pulse 82; Resp 20; Temp 96.7(O); Pulse Ox 95% on R/A; Pain 2/10; jc4 14:54 Pulse 78 MON; Pulse Ox 94% ; ja5 14:55 BP 122 / 58 (auto/); ja5 15:09 Pulse 70 MON; Pulse Ox 93% ; ja5 15:10 BP 119 / 58 (auto/); ja5 15:23 Pulse 78 MON; Pulse Ox 93% ; ja5 15:25 BP 125 / 60 (auto/); ja5 15:39 Pulse 78 MON; Pulse Ox 95% ; ja5 15:40 BP 111 / 69 (auto/); ja5 15:50 Pulse 78 MON; Pulse Ox 96% ; ja5 15:55 BP 111 / 45 (auto/); ja5 16:09 Pulse 60 MON; ja5 16:10 BP 123 / 60 (auto/); ja5 16:24 Pulse 78 MON; Pulse Ox 97% ; ja5 16:25 BP 113 / 56 (auto/); ja5 16:40 BP 126 / 69 (auto/); ja5 16:40 Pulse 82 MON; Pulse Ox 98% ; ja5 16:54 Pulse 80 MON; Pulse Ox 97% ; ja5 16:55 BP 158 / 73 (auto/); ja5 17:10 BP 152 / 70 (auto/); ja5 17:10 Pulse 80 MON; Pulse Ox 97% ; ja5 17:43 Pulse 82 MON; ja5 17:44 BP 126 / 83 (auto/); ja5 18:15 Pain 8/10; ja5 18:43 BP 134 / 66 LA Supine (auto/); Pulse 55; Resp 16; Temp 97.1(T); Pulse Ox 95% on R/A; ja5 Pain 9/10; MDM: 10:52 Staff Radiographer/Pulse Ox/q 30 min VS ordered. sd1 10:52 IV Saline Lock ordered. sd1 10:52 Rhythm Strip to chart ordered. sd1 10:52 Undress patient appropriately for examination ordered. sd1 10:53 Basic Metabolic Profile Ordered. EDMS 10:53 CBC with Diff Ordered. EDMS 10:53 Cardiac Injury Profile Ordered. EDMS 10:53 Troponin Ordered. EDMS 10:54 portable chest Ordered. EDMS 10:54 ECG WITH READING ER PHYS+CARDIAG ordered. EDMS 11:10 Financial registration complete. mm15 11:36 ERYTHROCYTE SEDIMENTATION RATE Ordered. EDMS 11:42 CBC with Diff Reviewed. sd1 12:22 Basic Metabolic Profile Reviewed. sd1 12:22 CBC with Diff Reviewed. sd1 12:22 Cardiac Injury Profile Reviewed. sd1 12:22 Troponin Reviewed. sd1 12:22 portable chest Reviewed. sd1 12:38 CBC with Diff Reviewed. sd1 12:38 ERYTHROCYTE SEDIMENTATION RATE Reviewed. sd1 12:43 ketorolac 15 mg IVP once ordered. sd1 13:23 CONSISTENT CARBOHYDRATE+DIET ordered. EDMS 13:24 [facility] Payment Agreement was scanned into [employer] and attached to record. mm15 16:22 portable chest Reviewed. sd1 16:24 CT Chest Without Contrast Ordered. EDMS 17:28 Repeat EKG (put time details section) ordered. sd1 17:28 Redraw CIP &Troponin (put time in details section) ordered. sd1 17:29 Repeat EKG (put time details section) complete. lbd 17:29 Redraw CIP &Troponin (put time in details section) complete. lbd 17:32 CARDIAC MARKER PANEL Ordered. EDMS 17:34 ECG WITH READING ER PHYS ordered. EDMS 17:45 oxyCODONE-acetaminophen 5 mg-325 mg 1 tabs PO once ordered. sd1 18:19 CT Chest Without Contrast Reviewed. sd1 18:27 CARDIAC MARKER PANEL Reviewed. sd1 04/22 08:08 ECG/EKG was scanned into [employer] and attached to record. gb 08:39 ECG/EKG was scanned into [employer] and attached to record. [facility] Administered Medications: 04/21 13:22 Drug: ketorolac 15 mg [ketorolac 30 mg/mL (1 mL) injection solution (0.5 mL)] Route: kr3 IVP; Site: right antecubital; 14:49 Follow up: BP 123 / 58; Pulse 82 bpm; Resp 20 bpm; Temp 96.7 Oral; Pulse Ox 95% RA; jc4 Pain 2/10 Adult 17:53 Drug: oxyCODONE-acetaminophen 1 tabs [oxycodone-acetaminophen 5 mg-325 mg tablet (1 ja5 tabs)] Route: PO; 18:15 Follow up: Pain 8/10 Adult ja5 Signatures: Dispatcher [employer] EDMS Linnette Benavidez MD MD sd1 Windy Watters, Wire Communications Engineer Unit lbd Amelia Manley, Reg Reg gb Opal Hernandez mm15 Linnette Paris JessicaRN RN ja5 Lupe Winston RN kr3 Ivette Young RN jc4 The chart was reviewed and I authenticate all verbal orders and agree with the evaluation and treatment provided.Corrections: (The following items were deleted from the chart) 11:36 11:05 ERYTHROCYTE SEDIMENTATION RATE+LAB ordered. EDMS EDMS Attachments: 13:24 [facility] Payment Agreement mm15 04/22 08:08 ECG/EKG gb 08:39 ECG/EKG [facility] Chart Complete MTDD
--- NOTE | 2016-04-25 14:22 | EDDOCDS ---
Physician Documentation [facility] Name: Jose Villatoro Age: 60 yrs Sex: Male : 1955 Arrival Date: 04/21/2016 Time: 10:48 Bed OBSERVATION Private MD: Leroy Triana Disposition: 04/21/16 18:38 Discharged to Home/Self Care. Impression: Chest pain on breathing. - Condition is Stable. - Discharge Instructions: Angina Pectoris, Nonspecific Chest Pain, Chest Wall Pain, Costochondritis, Angina Pectoris, [id number]. - Medication Reconciliation, Local Pharmacy Hours form. - Follow up: Leroy Triana; When: 2 - 3 days. - Problem is new. - Symptoms have improved. Historical: - Allergies: PENICILLINS; - Home Meds: 1. gabapentin 600 mg Oral tab 1 tab 3 times per day (Last dose: 04/21/2016 09:00) 2. metformin 500 mg Oral Tb24 2 tabs 2 times per day (Last dose: 04/21/2016 09:00) 3. atorvastatin 40 mg oral tab 1 tab sunday and for two weeks begining this week. (Last dose: 04/20/2016 09:00) 4. aspirin 81 mg Oral chew 1 tab once daily (Last dose: 04/21/2016 09:00) 5. [place] 10-325 mg Oral tab 1 tab every 6 hours as needed (Last dose: 04/21/2016 09:00) 6. clopidogrel 75 mg oral tab 1 tab once daily (Last dose: 04/21/2016 09:00) 7. duloxetine 60 mg Oral cpDR 1 cap once daily (Last dose: 04/21/2016 09:00) 8. voltaren gel 1% as needed (Last dose: 04/16/2016) 9. omeprazole 40 mg Oral cpDR 1 cap once daily (Last dose: 04/21/2016 09:00) 10. CoQ-10 100 mg oral cap 1 cap twice a day (Last dose: 04/21/2016 09:00) 11. metoprolol tartrate 50 mg Oral tab 1 tab 2 times per day (Last dose: 04/21/2016 09:00) 12. nitroglycerin 0.4 mg SL subl 1 tab PRN (Last dose: 12/15/2014) 13. Tylenol PM 500 mg oral soln 1 tablet as needed 1 to 2 tablets (Last dose: 03/30/2016) 14. allopurinol 300 mg Oral tab 1 tab once daily (Last dose: 04/21/2016 09:00) - PMHx: Arthritis; CAD; Chronic Back pain; Depression; Diabetes - NIDDM: uncontrolled; Gout; Hypercholesterolemia; Hypertension; nerve pain; Palpitations; Anemia; - PSHx: CABG; pericardial window; - Social history: Smoking status: Patient states former smoker of tobacco. No barriers to communication noted, The patient speaks fluent Icelandic. - Family history: Not pertinent. - : The pt / caregiver states he / she is on anticoagulants: Plavix. Home medication list is obtained from the patient. - Exposure Risk Screening:: None identified. Vital Signs: 04/21 10:59 BP 153 / 74; Pulse 85; Resp 20; Temp 98.3(O); Pulse Ox 96% on R/A; nb2 12:55 BP 132 / 61 (auto/); ja5 12:55 Pulse 78 MON; Pulse Ox 94% ; ja5 13:10 BP 123 / 67 (auto/); ja5 13:10 Pulse 80 MON; Pulse Ox 95% ; ja5 13:24 Pulse 80 MON; Pulse Ox 97% ; ja5 13:25 BP 115 / 56 (auto/); ja5 13:39 Pulse 80 MON; Pulse Ox 94% ; ja5 13:40 BP 130 / 78 (auto/); ja5 13:54 Pulse 84 MON; Pulse Ox 97% ; ja5 13:55 BP 126 / 71 (auto/); ja5 14:10 BP 132 / 94 (auto/); ja5 14:10 Pulse 78 MON; Pulse Ox 96% ; ja5 14:24 Pulse 78 MON; Pulse Ox 94% ; ja5 14:25 BP 110 / 57 (auto/); ja5 14:40 BP 123 / 58 (auto/); ja5 14:40 Pulse 80 MON; Pulse Ox 92% ; ja5 14:49 BP 123 / 58; Pulse 82; Resp 20; Temp 96.7(O); Pulse Ox 95% on R/A; Pain 2/10; jc4 14:54 Pulse 78 MON; Pulse Ox 94% ; ja5 14:55 BP 122 / 58 (auto/); ja5 15:09 Pulse 70 MON; Pulse Ox 93% ; ja5 15:10 BP 119 / 58 (auto/); ja5 15:23 Pulse 78 MON; Pulse Ox 93% ; ja5 15:25 BP 125 / 60 (auto/); ja5 15:39 Pulse 78 MON; Pulse Ox 95% ; ja5 15:40 BP 111 / 69 (auto/); ja5 15:50 Pulse 78 MON; Pulse Ox 96% ; ja5 15:55 BP 111 / 45 (auto/); ja5 16:09 Pulse 60 MON; ja5 16:10 BP 123 / 60 (auto/); ja5 16:24 Pulse 78 MON; Pulse Ox 97% ; ja5 16:25 BP 113 / 56 (auto/); ja5 16:40 BP 126 / 69 (auto/); ja5 16:40 Pulse 82 MON; Pulse Ox 98% ; ja5 16:54 Pulse 80 MON; Pulse Ox 97% ; ja5 16:55 BP 158 / 73 (auto/); ja5 17:10 BP 152 / 70 (auto/); ja5 17:10 Pulse 80 MON; Pulse Ox 97% ; ja5 17:43 Pulse 82 MON; ja5 17:44 BP 126 / 83 (auto/); ja5 18:15 Pain 8/10; ja5 18:43 BP 134 / 66 LA Supine (auto/); Pulse 55; Resp 16; Temp 97.1(T); Pulse Ox 95% on R/A; ja5 Pain 9/10; MDM: 10:52 Returned Goods Sorter/Pulse Ox/q 30 min VS ordered. sd1 10:52 IV Saline Lock ordered. sd1 10:52 Rhythm Strip to chart ordered. sd1 10:52 Undress patient appropriately for examination ordered. sd1 10:53 Basic Metabolic Profile Ordered. EDMS 10:53 CBC with Diff Ordered. EDMS 10:53 Cardiac Injury Profile Ordered. EDMS 10:53 Troponin Ordered. EDMS 10:54 portable chest Ordered. EDMS 10:54 ECG WITH READING ER PHYS+CARDIAG ordered. EDMS 11:10 Financial registration complete. mm15 11:36 ERYTHROCYTE SEDIMENTATION RATE Ordered. EDMS 11:42 CBC with Diff Reviewed. sd1 12:22 Basic Metabolic Profile Reviewed. sd1 12:22 CBC with Diff Reviewed. sd1 12:22 Cardiac Injury Profile Reviewed. sd1 12:22 Troponin Reviewed. sd1 12:22 portable chest Reviewed. sd1 12:38 CBC with Diff Reviewed. sd1 12:38 ERYTHROCYTE SEDIMENTATION RATE Reviewed. sd1 12:43 ketorolac 15 mg IVP once ordered. sd1 13:23 CONSISTENT CARBOHYDRATE+DIET ordered. EDMS 13:24 [facility] Payment Agreement was scanned into [employer] and attached to record. mm15 16:22 portable chest Reviewed. sd1 16:24 CT Chest Without Contrast Ordered. EDMS 17:28 Repeat EKG (put time details section) ordered. sd1 17:28 Redraw CIP &Troponin (put time in details section) ordered. sd1 17:29 Repeat EKG (put time details section) complete. lbd 17:29 Redraw CIP &Troponin (put time in details section) complete. lbd 17:32 CARDIAC MARKER PANEL Ordered. EDMS 17:34 ECG WITH READING ER PHYS ordered. EDMS 17:45 oxyCODONE-acetaminophen 5 mg-325 mg 1 tabs PO once ordered. sd1 18:19 CT Chest Without Contrast Reviewed. sd1 18:27 CARDIAC MARKER PANEL Reviewed. sd1 04/22 08:08 ECG/EKG was scanned into [employer] and attached to record. gb 08:39 ECG/EKG was scanned into [employer] and attached to record. [facility] Administered Medications: 04/21 13:22 Drug: ketorolac 15 mg [ketorolac 30 mg/mL (1 mL) injection solution (0.5 mL)] Route: kr3 IVP; Site: right antecubital; 14:49 Follow up: BP 123 / 58; Pulse 82 bpm; Resp 20 bpm; Temp 96.7 Oral; Pulse Ox 95% RA; jc4 Pain 2/10 Adult 17:53 Drug: oxyCODONE-acetaminophen 1 tabs [oxycodone-acetaminophen 5 mg-325 mg tablet (1 ja5 tabs)] Route: PO; 18:15 Follow up: Pain 8/10 Adult ja5 Signatures: Dispatcher [employer] EDMS Linnette Benavidez MD MD sd1 Windy Watters, Wildlife Removal Specialist Unit lbd Amelia Manley, Reg Reg gb Opal Hernandez mm15 Linnette Paris JessicaRN RN ja5 Lupe Winston RN kr3 Ivette Young RN jc4 The chart was reviewed and I authenticate all verbal orders and agree with the evaluation and treatment provided.Corrections: (The following items were deleted from the chart) 11:36 11:05 ERYTHROCYTE SEDIMENTATION RATE+LAB ordered. EDMS EDMS Attachments: 13:24 [facility] Payment Agreement mm15 04/22 08:08 ECG/EKG gb 08:39 ECG/EKG [facility] Chart Complete MTDD
== END 2016-04-21 19:05 | disposition home or self-care (01) ==
LOC: M ED 10:48
DX: R07.9 Chest pain, unspecified (principal); R94.31 Abnormal electrocardiogram [ECG] [EKG]; E11.9 Type 2 diabetes mellitus without complications; I10 Essential (primary) hypertension; I25.10 Atherosclerotic heart disease of native coronary artery without angina pectoris; E78.5 Hyperlipidemia, unspecified; M54.9 Dorsalgia, unspecified; G89.29 Other chronic pain; D64.9 Anemia, unspecified; Z86.711 Personal history of pulmonary embolism; M10.9 Gout, unspecified; E78.00 Pure hypercholesterolemia, unspecified; M19.90 Unspecified osteoarthritis, unspecified site; F32.9 Major depressive disorder, single episode, unspecified; R00.2 Palpitations; M79.2 Neuralgia and neuritis, unspecified; Z95.1 Presence of aortocoronary bypass graft; Z79.899 Other long term (current) drug therapy; Z79.82 Long term (current) use of aspirin; Z79.84 Long term (current) use of oral hypoglycemic drugs; Z79.01 Long term (current) use of anticoagulants; Z88.0 Allergy status to penicillin; Z87.891 Personal history of nicotine dependence
CPT/HCPCS: 71010; 71250; 80048; 82550; 82553; 85025; 85652; 93005; 93041; 96374; 99285; J1885

== ENCOUNTER 2016-05-19 13:45 | Outpatient (RCR) | payer OTHER | END 2016-05-23 | LOC: M CR 13:45 | PROVIDERS: ATTEND Internal Medicine Cardiovascular Disease | DX: Z95.1 Presence of aortocoronary bypass graft (principal) ==

== ENCOUNTER → 2016-06-26 | Outpatient (CLI) | payer OTHER ==
[2016-06-26 13:34] LABS: BASO # 0.1 K/mm3 (0.0-0.2); BASO % 0.5 % (0.0-1.0); EOS # 0.8 K/mm3 (0.0-0.50); EOS % 6.4 % (0.0-3.0); LARGE UNSTAINED CELL # 0.2 K/mm3 (0.0-0.4); LARGE UNSTAINED CELL % 1.9 % (0.0-4.0); LYMPH % 30.1 % (24.0-44.0); MEAN CORPUSCULAR HEMOGLOBIN 25.9 pg (27.0-33.0); MEAN CORPUSCULAR HGB CONC 30.6 g/dl (32.0-36.5); MEAN CORPUSCULAR VOLUME 84.7 fl (80.0-96.0); MONO # 0.8 K/mm3 (0.0-0.8); MONO % 6.2 % (0.0-5.0); NEUTROPHILS # 6.8 K/mm3 (1.8-7.7); PLATELET COUNT, AUTOMATED 258 k/mm3 (150-450); RED CELL DISTRIBUTION WIDTH 16.7 % (11.5-14.5); WHITE BLOOD COUNT 12.4 K/mm3 (4.0-10.0)
[2016-06-26 13:56] LABS: PERCENT SATURATION 7.3 % (19.7-37.4)
== END ==
LOC: M LAB 12:56
PROVIDERS: ATTEND Internal Medicine Cardiovascular Disease
DX: D64.9 Anemia, unspecified (principal)

== ENCOUNTER → 2016-10-26 | Outpatient (CLI) | payer OTHER ==
[~2016-10-26] MED LIST changes: -ACET-654 PO; +ACET1TAB17 PO; -ATOR40TA PO; +ATOR40TA75 PO; -METO50TA2 PO; +METO50TA7 PO; +PLAV1TAB2 PO; -PLAV75TA38 PO; +VOLT1GEL15 TD; -VOLT1GEL24 TD
[2016-10-26 12:42] LABS: MEAN CORPUSCULAR HEMOGLOBIN 31.8 pg (27.0-33.0); MEAN CORPUSCULAR HGB CONC 34.6 g/dl (32.0-36.5); RED CELL DISTRIBUTION WIDTH 14.8 % (11.5-14.5); WHITE BLOOD COUNT 11.5 K/mm3 (4.0-10.0)
[2016-10-26 13:37] LABS: BANDS 2 % (< 11); EOSINOPHILS 7 % (0-5)
[2016-10-26 13:38] LABS: ANISOCYTOSIS 1+
[2016-10-26 13:39] LABS: REASON FOR REVIEW COMPREHENSIVE REVIEW
== END ==
LOC: M LAB 11:13
PROVIDERS: ATTEND Family Medicine
DX: D72.829 Elevated white blood cell count, unspecified (principal)

== ENCOUNTER → 2017-01-12 | Outpatient (CLI) | payer OTHER ==
--- NOTE | 2017-01-12 09:44 | REP ---
RIGHT UPPER QUADRANT ULTRASOUND: Real-time sonographic evaluation of the right upper quadrant performed. The gallbladder demonstrates no evidence of intraluminal sludge or calculi, wall thickening or pericholecystic fluid. There is no intrahepatic or extrahepatic biliary dilatation, common bile duct measuring 4 mm in diameter. Liver and pancreas demonstrate no gross mass, pancreas not optimally seen due to overlying bowel gas. Right kidney demonstrates no hydronephrosis with normal size at 11.2 cm in length. Multiple small cysts are seen in the right kidney up to 9 mm in diameter with that cyst in the mid aspect. No free fluid is seen. IMPRESSION: Somewhat limited exam due to body habitus and bowel gas. No gallstones, biliary dilatation or free fluid. Small right renal cysts. Signed by Hans Dimas MD 01/15/2017 09:46 A
== END ==
LOC: M RAD 07:50
PROVIDERS: ATTEND Surgery
DX: R10.9 Unspecified abdominal pain (principal); K80.20 Calculus of gallbladder without cholecystitis without obstruction; N28.1 Cyst of kidney, acquired

== ENCOUNTER 2017-09-19 06:49 | Day surgery (SDC) | payer OTHER ==
[~2017-09-19 06:49] MED LIST changes: -ACET1TAB17 PO; -ACET500C PO; +ACETAMINOPHEN 325 MG TAB PO; -ADVI200C5 PO; -ALBU17IN INH; -ASCO500T PO; -ASPI1TAB PO; -ATOR40TA75 PO; -CIAL20TA PO; -CO Q100C10 PO; -COLC1TAB13 PO; -CYCL10TA PO; -DULO1CAP3 PO; -FURO40TA2 PO; -GABA600T PO; -HYDR-3719 PO; -LISI-538 PO; -LISI10TA4 PO; -MELO15TA4 PO; -METF500T4 PO; -METO50TA7 PO; -OMEP40CA2 PO; -PLAV1TAB2 PO; -POTA20TA PO; -PRIL40CA PO; -SIMV10TA2 PO; -SUCR1TA PO; -TYLE1TAB5 PO; -VITMTA PO; -VOLT1GEL15 TD; -ZYLO300T4 PO
[2017-09-19] MEDS ORDERED: PHENYLEPHRINE HCL 10 % OPHTH. SOL 5ML OS (07:00)
[2017-09-19] MEDS ORDERED: CYCLOPENTOLATE 2% OPHTH SOLN 2ML BTL As Ordered (07:16)
[2017-09-19] MEDS ORDERED: TROPICAMIDE 1% OPHTH SOLN 2ML As Ordered (07:16)
[2017-09-19] MEDS ORDERED: OFLOXACIN 0.3 % (OCUFLOX) OPTH SOL 5ML As Ordered (07:16)
[2017-09-19] MEDS ORDERED: PHENYLEPHRINE 2.5% OPHTH SOL 2ML As Ordered (07:16)
[2017-09-19] MEDS: TROPICAMIDE 1% OPHTH SOLN 2ML OS (07:39)
[2017-09-19] MEDS: OFLOXACIN 0.3 % (OCUFLOX) OPTH SOL 5ML OS (07:39)
[2017-09-19] MEDS: LIDOCAINE 3.5 % 1ML OPHTH TOPICAL GEL OU (07:40)
[2017-09-19] MEDS: PHENYLEPHRINE 2.5% OPHTH SOL 2ML OS (07:40)
[2017-09-19] MEDS: CYCLOPENTOLATE 2% OPHTH SOLN 2ML BTL OS (07:40)
[2017-09-19] MEDS: POVIDONE-IODINE 5% OPHTH PREP SOL 30ML As Ordered (08:59)
[2017-09-19] MEDS: HEALON DUET (HEALON 10MG/ML 0.55ML & HEALON ENDOCOAT 30MG/ML 0.85ML) As Ordered (08:59)
[2017-09-19] MEDS: LIDOCAINE 1% SDV 5 ML VIAL As Ordered (08:59)
[2017-09-19] MEDS: BSS with VANC/TOB/EPI for EYE CASES IR (09:02)
[2017-09-19] MEDS: MOXIFLOXACIN IN BSS 0.25MG/0.25ML INTRACAMERAL INJ (OR EYE ONLY)(J2280) As Ordered (09:02)
[2017-09-19] MEDS: TRIAMCINOLONE PRES FR 40 MG/ML 1ML(TRIESENCE)(OR EYE ONLY)(J3300 PER 1MG) As Ordered (09:02)
[2017-09-19] MEDS ORDERED: MIDAZOLAM INJ 2 MG/2 ML VIAL (J2250) As Ordered (09:04)
[2017-09-19] MEDS ORDERED: fentaNYL 100 MCG/2 ML INJECTION (J3010) As Ordered (09:04)
[2017-09-19] MEDS ORDERED: AcetaZOLAMIDE 500 MG ER CAP As Ordered (09:32)
[2017-09-19] MEDS: AcetaZOLAMIDE 500 MG ER CAP PO (09:35)
[2017-09-19] MEDS ORDERED: TRIMETHOBENZAMIDE 300 MG CAP PO (09:45)
== END 2017-09-19 09:44 | disposition home or self-care (01) ==
LOC: M SDC 06:49
DX: H25.9 Unspecified age-related cataract (principal); I25.10 Atherosclerotic heart disease of native coronary artery without angina pectoris; I10 Essential (primary) hypertension; E11.9 Type 2 diabetes mellitus without complications; E78.5 Hyperlipidemia, unspecified; Z79.899 Other long term (current) drug therapy; Z79.82 Long term (current) use of aspirin; Z79.02 Long term (current) use of antithrombotics/antiplatelets; Z88.0 Allergy status to penicillin
CPT/HCPCS: 66984

== ENCOUNTER 2017-10-17 06:10 | Day surgery (SDC) | payer OTHER ==
[2017-10-16] MEDS: AcetaZOLAMIDE 500 MG ER CAP PO (08:52)
[~2017-10-17 06:10] MED LIST changes: +SLF 3 ML SYR IV
[2017-10-17] MEDS: TROPICAMIDE 1% OPHTH SOLN 2ML OD (06:44)
[2017-10-17] MEDS: OFLOXACIN 0.3 % (OCUFLOX) OPTH SOL 5ML OD (06:44)
[2017-10-17] MEDS: CYCLOPENTOLATE 2% OPHTH SOLN 2ML BTL OD (06:45)
[2017-10-17] MEDS: LIDOCAINE 3.5 % 1ML OPHTH TOPICAL GEL OU (06:45)
[2017-10-17] MEDS: PHENYLEPHRINE 2.5% OPHTH SOL 2ML OD (06:45)
[2017-10-17 06:58] LABS: BEDSIDE GLUCOSE 125 MG/DL (80-115)
[2017-10-17] MEDS ORDERED: PHENYLEPHRINE HCL 10 % OPHTH. SOL 5ML OD (07:00)
[2017-10-17] MEDS ORDERED: BSS with VANC/TOB/EPI for EYE CASES IR (07:00)
[2017-10-17] MEDS ORDERED: MIDAZOLAM INJ 2 MG/2 ML VIAL (J2250) As Ordered (08:04)
[2017-10-17] MEDS ORDERED: fentaNYL 100 MCG/2 ML INJECTION (J3010) As Ordered (08:04)
[2017-10-17] MEDS: POVIDONE-IODINE 5% OPHTH PREP SOL 30ML As Ordered (08:08)
[2017-10-17] MEDS: TRIAMCINOLONE PRES FR 40 MG/ML 1ML(TRIESENCE)(OR EYE ONLY)(J3300 PER 1MG) As Ordered (08:08)
[2017-10-17] MEDS: LIDOCAINE 1% SDV 5 ML VIAL As Ordered (08:09)
[2017-10-17] MEDS: HEALON DUET (HEALON 10MG/ML 0.55ML & HEALON ENDOCOAT 30MG/ML 0.85ML) As Ordered (08:09)
[2017-10-17] MEDS: MOXIFLOXACIN IN BSS 0.25MG/0.25ML INTRACAMERAL INJ (OR EYE ONLY)(J2280) As Ordered (08:09)
[2017-10-17] MEDS: LIDOCAINE 2% W/EPIN INJ 20ML **PRES FREE As Ordered (08:09)
[2017-10-17] MEDS ORDERED: TRIMETHOBENZAMIDE 300 MG CAP PO (08:30)
== END 2017-10-17 08:56 | disposition home or self-care (01) ==
LOC: M SDC 06:10
DX: H25.9 Unspecified age-related cataract (principal); I10 Essential (primary) hypertension; I25.10 Atherosclerotic heart disease of native coronary artery without angina pectoris; Z95.1 Presence of aortocoronary bypass graft; Z79.82 Long term (current) use of aspirin; E78.00 Pure hypercholesterolemia, unspecified; E11.9 Type 2 diabetes mellitus without complications; D64.9 Anemia, unspecified; Z79.899 Other long term (current) drug therapy; Z88.0 Allergy status to penicillin; R06.09 Other forms of dyspnea; R55 Syncope and collapse
CPT/HCPCS: 66984

== ENCOUNTER → 2018-12-26 | Outpatient (CLI) | payer MEDICARE ==
[~2018-12-26] MED LIST changes: +ACET1TAB55 PO; +ACET500C PO; -ACETAMINOPHEN 325 MG TAB PO; +ADVI200C5 PO; +ALBU17IN INH; +ASCO500T PO; +ASPI81TA26 PO; +ATOR40TA75 PO; +CIAL20TA PO; +CITRTAB18 PO; +CO Q100C10 PO; +COLC1TAB13 PO; +CYCL10TA PO; +DULO1CAP6 PO; +FURO40TA2 PO; +GABA600T4 PO; +HYDR-3719 PO; +KLOR20TA42 PO; +LISI-538 PO; +LISI10TA4 PO; +MELO15TA28 PO; +METF-791 PO; +METO50TA7 PO; +OMEG1CAP16 PO; +OMEP40CA2 PO; +PLAV1TAB2 PO; +PRIL40CA PO; +SIMV10TA2 PO; -SLF 3 ML SYR IV; +SUCR1TA PO; +TOPI25TA10 PO; +TYLE1TAB5 PO; +VITA100018 PO; +VITMTA PO; +VOLT1GEL15 TD; +ZYLO300T6 PO
--- NOTE | 2018-12-26 10:27 | REP ---
ULTRASOUND ABDOMEN: Real-time sonographic evaluation of the abdomen performed. Gallbladder demonstrates no evidence of intraluminal sludge or calculi, wall thickening or pericholecystic fluid. There is no intrahepatic or extrahepatic biliary dilatation, common bile duct measuring 5 mm. Liver demonstrates a cyst at the right dome with internal septations. It measures 5.4 x 3.7 x 3.2 cm. This has been seen on prior CT scans dating back to 2008. Visualized pancreas is grossly unremarkable but not well seen due to overlying bowel gas. The spleen is not significantly enlarged with a length of 11.6 cm. Right kidney measures 10.9 x 5.6 x 5.8 cm and left kidney 11.7 x 4.8 x 4.9 cm. There is no hydronephrosis bilaterally. Cortex of each kidney is lobulated in appearance. Cyst in the mid aspect right kidney measures 6.0 x 3.0 x 4.0 mm. There also appears to be a mm calcification in the mid right kidney. Smaller echogenic foci in the region of the right renal collecting system could represent tiny renal calculi. Left kidney demonstrates two cysts in the upper pole measuring 1.1 and 1.4 cm, with a cyst in the mid aspect 9.0 mm. Proximal abdomen aorta could not be visualized. Mid abdominal aorta measures 2.7 cm and distal 2.2 cm, with no aneurysm. No ascites is seen. IMPRESSION: Limited exam due to patient body habitus and bowel gas. Gallbladder is unremarkable. Septated cyst at the right dome of the liver has been present on multiple prior CT exams dating back to 2008. There is no hydronephrosis bilaterally. There are bilateral renal cysts. There appear to be small calculi in the right renal collecting system. Electronically Signed by Hans Dimas MD 12/26/2018 05:53 P
== END ==
LOC: M RAD 06:20
PROVIDERS: ATTEND Specialist
DX: R10.9 Unspecified abdominal pain (principal)

== ENCOUNTER → 2019-01-24 | Outpatient (CLI) | payer MEDICARE ==
[~2019-01-24] MED LIST changes: -OMEP40CA2 PO; +OMEP40CA97 PO
--- NOTE | 2019-01-27 08:32 | REP ---
Right knee MRI: There are no comparison studies. The study is performed with proton density, T2 and gradient echo data sets in sagittal, axial and coronal projections. There is diffuse T2 signal throughout the medial femoral condyle compatible with marrow edema. There is a questionable nondisplaced hairline fracture, seen to best advantage on the T2 sequence, image 25. There is diffuse thickening of the medial retinaculum accompanied by para ligamentous and intrasubstance T2 signal compatible with advanced retinacular sprain. No retinacular tear or retraction are identified. There is articular cartilage thinning and mild surface irregularity of all three compartments. There is osteophytic growth at the margins of all three compartments. 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 There is a small volume of joint fluid, likely physiologic. There are several soft tissue cysts along the lateral margin of the lateral collateral ligament, likely a ganglion. The anterior posterior cruciate ligaments are unremarkable. The medial meniscus is unremarkable. There is a large calcification in the anterior horn of the lateral meniscus. There are calcifications in the intercondylar notch anteriorly. There is a large osteophyte of the proximal tibia posteriorly medially near the midline. There is a small osteochondroma arising from the distal femur posteriorly at the superior margin of the medial femoral condyle. The quadriceps and patellar tendons are unremarkable. There is no Contreras's cyst. Impression: Large bone contusion of the medial femoral condyle. There is questionably a nondisplaced hairline fracture in the medial femoral condyle, seen to best advantage on the T2 sequence image 25. Small volume of joint fluid, likely physiologic. Advanced medial retinacular sprain. Medial and lateral collateral ligaments are unremarkable. Cruciate ligaments are unremarkable. The quadriceps and patellar tendons are unremarkable. Tricompartment osteoarthritis. Large calcifications anteriorly in the lateral meniscus . Calcifications in the intercondylar notch anteriorly. Ganglion cysts along the lateral margin of the lateral collateral ligament. Electronically Signed by Hans Dumont MD 01/27/2019 08:24 A
== END ==
LOC: M RAD 17:21
PROVIDERS: ATTEND Orthopaedic Surgery
DX: M17.12 Unilateral primary osteoarthritis, left knee (principal)

== ENCOUNTER 2019-01-31 14:28 | Emergency (ER) | payer MEDICARE ==
--- NOTE | 2019-01-31 15:05 | REP ---
PORTABLE CHEST X-RAY: Single view. HISTORY: Chest pain. COMPARISON CHEST X-RAY: April 21, 2016. FINDINGS: EKG monitoring electrodes overlie the chest. There is moderate elevation of the right hemidiaphragm unchanged. A mild dextroconvex curvature is seen in the thoracic spine. Median sternotomy wires are again noted. Heart is not enlarged. Lung sinclair show no evidence of infiltrate. There is minimal linear fibrosis versus plate-like atelectasis at the right base. Pulmonary vasculature is not increased. There are left perihilar surgical clips. IMPRESSION: Postoperative changes. Elevated right hemidiaphragm. No acute cardiopulmonary disease. Linear fibrosis right base. Electronically Signed by Francois Miramontes MD 01/31/2019 05:19 P
[2019-01-31] MEDS ORDERED: ISOVUE-370 76% 100ML VIAL (Q9967) As Ordered ONE (15:08)
[2019-01-31 15:13] LABS: BASO % 0.4 % (0.0-1.0); EOS # 0.4 10^3/uL (0.0-0.5); HEMATOCRIT 42.3 % (42.0-52.0); HEMOGLOBIN 13.7 g/dl (13.5-17.5); LYMPH # 2.5 10^3/uL (1.5-5.0); LYMPH % 31.2 % (24.0-44.0); MEAN CORPUSCULAR HEMOGLOBIN 31.3 pg (27.0-33.0); MEAN CORPUSCULAR HGB CONC 32.4 g/dl (32.0-36.5); MEAN CORPUSCULAR VOLUME 96.6 fl (80.0-96.0); MONO # 0.7 10^3/uL (0.0-0.8); MONO % 8.7 % (0.0-5.0); NEUTROPHILS # 4.3 10^3/uL (1.5-8.5); NEUTROPHILS % 53.5 % (36.0-66.0); PLATELET COUNT, AUTOMATED 186 10^3/uL (150-450); RED BLOOD COUNT 4.38 10^6/uL (4.30-6.10); WHITE BLOOD COUNT 8.1 10^3/uL (4.0-10.0)
[2019-01-31] MEDS ORDERED: SILD50TA PO (15:14)
[2019-01-31] MEDS ORDERED: METO25TA4 (15:14)
[2019-01-31] MEDS ORDERED: LYRI150C PO (15:14)
[2019-01-31] MEDS ORDERED: ONDA4TAB5 (15:14)
[2019-01-31] MEDS ORDERED: ATOR80TA59 (15:14)
[2019-01-31 15:23] LABS: INR 1.11
[2019-01-31] MEDS ORDERED: ACETAMINOPHEN TAB 650MG DOSE (2X325MG) PO ONE (15:30)
[2019-01-31 15:37] LABS: ALBUMIN 3.1 GM/DL (3.2-5.2); ALT/SGPT 28 U/L (12-78); BILIRUBIN,DIRECT 0.1 MG/DL (0.0-0.2); BILIRUBIN,TOTAL 0.6 MG/DL (0.2-1.0); CK-MB VALUE MASS 1.6 NG/ML (<3.6); CPK CREATINE PHOSPHOKINASE 118 U/L (39-308); LIPASE 164 U/L (73-393); MB/CK RELATIVE INDEX 1.36 (< OR =4); TOTAL PROTEIN 6.5 GM/DL (6.4-8.2); TROPONIN I < 0.02 NG/ML (< 0.10)
--- NOTE | 2019-01-31 16:06 | REP ---
CT of the chest with IV contrast, CT pulmonary embolus protocol: Comparison is 04/21/2016 without IV contrast. There are no emboli in the pulmonary trunk or central pulmonary arteries. There are no emboli in the pulmonary lobe or segment branches. There is minor discoid atelectasis in the right lower lobe. The lung sinclair otherwise clear. No pleural effusions. There is no hilar, mediastinal or axillary lymphadenopathy. Thoracic aorta is unremarkable. Cardiac size is normal. There is no pericardial effusion. In the upper abdomen the visualized areas of the liver, gallbladder, pancreas and spleen are unremarkable. There are surgical staple lines compatible with bariatric surgery. The adrenals are unremarkable. There appears to be a renal cortical scarring of the renal upper poles bilaterally. There is a nonobstructive calculus in the upper pole right kidney. Impression: No pulmonary emboli. Discoid atelectasis in the right lower lobe. Nonobstructive right renal calculus. Bariatric surgery. Electronically Signed by Hans Dumont MD 01/31/2019 03:58 P
[2019-01-31 17:45] LABS: CK-MB VALUE MASS 1.4 NG/ML (<3.6); CPK CREATINE PHOSPHOKINASE 75 U/L (39-308); MB/CK RELATIVE INDEX 1.87 (< OR =4); TROPONIN I < 0.02 NG/ML (< 0.10)
--- NOTE | 2019-01-31 18:02 | ECGEPIP ---
[facility] - ED Test Date: 2019-01-31 Pat Name: CARLITA YE Department: Room: - Gender: Male Tip Length Checker: : 1955 Requested By: Elan Braga Order Number: [id number] Reading MD: Linnette Benavidez Measurements Intervals [place] Rate: 66 P: 3 UT: 194 QRS: -11 QRSD: 98 T: 30 QT: 380 QTc: 401 Interpretive Statements SINUS RHYTHM PRWP POSSIBLE PRIOR INFERIOR INFARCT DECREASED RATE/ECTOPY COMPARED 04/21/16 Electronically Signed on 01-31-2019 18:02:04 EST by Linnette Benavidez
--- NOTE | 2019-01-31 18:02 | ECGEPIP ---
[facility] - ED Test Date: 2019-01-31 Pat Name: CARLITA YE Department: Room: - Gender: Male Interior Block Wirer: : 1955 Requested By: Elan Braga Order Number: [id number] Reading MD: Linnette Benavidez Measurements Intervals [place] Rate: 58 P: 2 VA: 206 QRS: -8 QRSD: 93 T: 34 QT: 405 QTc: 401 Interpretive Statements SINUS BRADYCARDIA PRWP PRIOR INFERIOR INFARCT POSSIBLE SIMILAR 14:41 01/31/19 Electronically Signed on 01-31-2019 18:02:52 EST by Linnette Benavidez
[2019-01-31 18:09] VITALS: BP 130/80
== END 2019-01-31 18:10 | disposition home or self-care (01) ==
LOC: EDBD 14:28 → M ED 14:28
DX: R07.81 Pleurodynia (principal); R00.1 Bradycardia, unspecified; I25.10 Atherosclerotic heart disease of native coronary artery without angina pectoris; Z86.711 Personal history of pulmonary embolism; Z86.718 Personal history of other venous thrombosis and embolism; Z95.1 Presence of aortocoronary bypass graft; Z86.79 Personal history of other diseases of the circulatory system; Z82.49 Family history of ischemic heart disease and other diseases of the circulatory system; Z98.84 Bariatric surgery status; Z79.82 Long term (current) use of aspirin; Z79.899 Other long term (current) drug therapy; Z88.0 Allergy status to penicillin; Z88.6 Allergy status to analgesic agent
CPT/HCPCS: 36415; 71045; 71275; 80047; 80076; 82550; 82553; 83690; 84484; 85025; 85610; 93005; 93041; 94760; 99285; Q9967

== ENCOUNTER 2019-08-15 20:49 | Observation (INO) | payer MEDICARE ==
[~2019-08-15] VITALS: Ht 170.2 cm; Wt 134.2 kg
[2019-08-15] MEDS: NYSTATIN 100,000 UNITS/GM TOPICAL PWD 15 GM TOP SCH (01:15)
[~2019-08-15 20:49] MED LIST changes: +ATOR80TA59 PO; +CYCL-707 PO; -CYCL10TA PO; +LYRI150C PO; -METF-791 PO; +METF-838 PO; +METO25TA4 PO; +ONDA-83 PO; +SILD50TA PO; -SIMV10TA2 PO; +SIMV10TA21 PO
[2019-08-15 21:15] LABS: BASO # 0.1 10^3/uL (0.0-0.2); BASO % 0.6 % (0.0-1.0); EOS # 0.5 10^3/uL (0.0-0.5); EOS % 5.6 % (0.0-3.0); HEMATOCRIT 43.1 % (42.0-52.0); HEMOGLOBIN 14.2 g/dl (13.5-17.5); LYMPH # 2.7 10^3/uL (1.5-5.0); LYMPH % 28.7 % (24.0-44.0); MEAN CORPUSCULAR HEMOGLOBIN 31.2 pg (27.0-33.0); MEAN CORPUSCULAR HGB CONC 32.9 g/dl (32.0-36.5); MEAN CORPUSCULAR VOLUME 94.7 fl (80.0-96.0); MONO # 0.8 10^3/uL (0.0-0.8); MONO % 8.4 % (0.0-5.0); NEUTROPHILS # 5.3 10^3/uL (1.5-8.5); NEUTROPHILS % 55.6 % (36.0-66.0); PLATELET COUNT, AUTOMATED 174 10^3/uL (150-450); RED BLOOD COUNT 4.55 10^6/uL (4.30-6.10); WHITE BLOOD COUNT 9.5 10^3/uL (4.0-10.0)
[2019-08-15] MEDS ORDERED: NS 1,000 ML IV SCH (21:15)
--- NOTE | 2019-08-15 21:25 | REPVR ---
PROCEDURE INFORMATION: Exam: CT Head Without Contrast Exam date and time: 08/15/2019 9:16 PM Age: 64 years old Clinical indication: Numbness / parasthesia; Left; Additional info: Altered sensation TECHNIQUE: Imaging protocol: Computed tomography of the head without contrast. Radiation optimization: All CT scans at this facility use at least one of these dose optimization techniques: automated exposure control; mA and/or kV adjustment per patient size (includes targeted exams where dose is matched to clinical indication); or iterative reconstruction. COMPARISON: No relevant prior studies available. FINDINGS: Brain: There is no evidence for an acute large vessel territorial infarct, intracranial hemorrhage, mass, mass effect, midline shift, or herniation. There are non-specific foci of low attenuation in the periventricular and subcortical white matter, which are likely the sequela of chronic small vessel ischemic injury. Ventricles: Normal. No hydrocephalus. Bones/joints: The skull is intact. No suspicious osteolytic or osteoblastic lesion. Sinuses: The imaged portions of the sinuses are well-aerated. No air-fluid levels are noted in the sinuses. Mastoid air cells: Clear. Soft tissues: Unremarkable. No soft tissue fluid collection. Vasculature: There are atherosclerotic calcifications of the intracranial portion of the right vertebral artery and both internal carotid arteries. IMPRESSION: 1. No acute intracranial abnormality. 2. Periventricular and subcortical white matter changes, which are likely the sequela of chronic small vessel ischemic injury. Electronically signed by: Mahad Iglesias On 08/15/2019 21:25:04 PM
[2019-08-15 21:27] LABS: INR 1.11
[2019-08-15 21:41] LABS: ALBUMIN 3.6 GM/DL (3.2-5.2); ALT/SGPT 30 U/L (12-78); BILIRUBIN,DIRECT 0.2 MG/DL (0.0-0.2); BILIRUBIN,TOTAL 0.6 MG/DL (0.2-1.0); BLOOD UREA NITROGEN 19 MG/DL (7-18); CALCIUM LEVEL 8.1 MG/DL (8.8-10.2); CARBON DIOXIDE LEVEL 26 MEQ/L (21-32); CHLORIDE LEVEL 110 MEQ/L (98-107); CK-MB VALUE MASS 1.6 NG/ML (<3.6); CPK CREATINE PHOSPHOKINASE 88 U/L (39-308); CREATININE FOR GFR 1.19 MG/DL (0.70-1.30); GLOMERULAR FILTRATION RATE > 60.0 (>49); GLUCOSE, FASTING 108 MG/DL (70-100); LIPASE 141 U/L (73-393); MAGNESIUM LEVEL 1.9 MG/DL (1.8-2.4); MB/CK RELATIVE INDEX 1.82 (< OR =4); POTASSIUM SERUM 4.6 MEQ/L (3.5-5.1); SODIUM LEVEL 142 MEQ/L (136-145); TROPONIN I < 0.02 NG/ML (< 0.10)
[2019-08-15] MEDS ORDERED: TRIA1OI TOP (22:19)
[2019-08-15] MEDS ORDERED: DOK1CAP7 PO (22:19)
[2019-08-15] MEDS ORDERED: GNP1000T11 PO (22:19)
[2019-08-15] MEDS ORDERED: CLOT1CRE71 TOP (22:19)
[2019-08-15] MEDS ORDERED: NITR4TASL SL (22:19)
[2019-08-15] MEDS ORDERED: NYST1POW9 TOP (22:19)
--- NOTE | 2019-08-15 22:46 | HPEPDOC ---
[facility] Medical History & Physical Date of Admission August 15, 2019 Date of Service: August 15, 2019 Primary Care Physician: REMBERTO MARTI MD [facility] Attending Physician: Anna Zambrano MD History and Physical CHIEF COMPLAINT: left facial numbness HISTORY OF PRESENT ILLNESS: Patient is a 64 y/o M with PMH of spinal stenosis, CAD s/p CABG, chronic lower back pain, depression, anxiety, HTN who presented to [facility] ER with chief complaint of feeling like he was going to "pass out" this afternoon with ongoing left face and head, arm and leg numbness beginning several weeks ago. He states that he has had decreased sensation in those areas. The numbness/tingling is described this as intermittent, gets worse then will get better. He denies pain in his face at all. Associated symptoms include occasional blurry vision of left eye which is new, occasional lightheadedness, dizziness, a wierd feeling of talking but not quite understanding what he is saying, increased weakness of left leg that felt like it was going to "give out on me". He has floaters in his vision normally and has for years. Denies drooling, dropping of face, falls, headaches, photophobia, prior CVA or TIA. He has chronic numbness of the left 1-3 digits of foot, occasional aching of left arm that has been going on for the past 1 yr, attributed to a pinched nerve in the back. He was diagnosed by his primary provider and has not seen a neurologist. He has no history of lyme disease, not outside a lot. No prior nerve damage/trauma in the face. No medication changes or increased stressful situations. He denied chest pain, shortness of breath, n/v/d, fevers, chills, recent illnesses. In ER, VS were stable. Labs unremarkable. CT head neg. Neurological exam was unremarkable;however, patient continued to describe the numbness and tingling on his left side. Although strength was 5/5 in all extremities, patient felt his left arm was weaker. Due to continued concerning symptoms, patient was admitted for left facial, arm and leg numbness r/o evolving CVA vs. TIA. ROS: Negative except for what is mentioned above. PAST MEDICAL HISTORY: 1. Radiculopathy, chronic 2. Gout 3. Insomnia 4. CAD s/p CABG 5. Depression 6. Anxiety 7. HTN 8. GERD 9. Chronic back pain 10. Occasional yeast infections in abdominal pannus 11. Erectile dysfunction 12. Hx of diabetes mellitus, resolved after bariatric surgery 13. Recurrent kidney stones PAST SURGICAL HISTORY: 1. CABG 11/26/2015 2. Bariatric surgery 10/2016 3. Hernia repair x 15 surgeries 4. Lithotripsy 5. Pericardial window SOCIAL HISTORY: Prior smoker, for 12-15 years, >2 PPD. Quit 1984. PCP- Dr. Marti. Protective Signal Operator-Dr. Triana. Urologist- Dr. Johnson. FAMILY HISTORY: Father: DM type II, CAD. at 71 y/o. Mother: ESRD on HD, DM type II, CAD, HTN, arthritis. at 63 y/o Siblings: Brother- multiple sclerosis. at 29. ALLERGIES: Please see below. HOME MEDICATIONS: Please see below. PHYSICAL EXAMINATION: CONSTITUTIONAL: No acute distress, resting comfortably, AAO x 3 EYES: PERRLA, EOM intact, corrective lenses in place HENT, MOUTH: Normocephalic, atraumatic, moist mucous membranes NECK: SUPPLE, no JVD, no lymphadenopathy, no carotid bruit CV: Regular rate and rhythm, S1S2 normal, no murmurs/rubs/gallops RESPIRATORY: Clear to auscultation bilaterally, no rales/rhonchi/wheezes GI: BS positive in 4 quadrants, soft, nontender, nondistended, no rebound or guarding, no organomegaly : Deferred MUSCULOSKELETAL: Normal ROM. No cyanosis, clubbing, swelling, joint deformity, extremity edema INTEGUMENTARY: Intact, no rashes, no lesions, no erythema NEUROLOGIC: Cranial Nerves II-XII are intact, no focal deficits, sensory and motor intact PSYCHIATRIC: Mood and affect are normal LABORATORY DATA: Please see below IMAGING: CT head: No acute intracranial abnormality ASSESSMENT: 64 y/o M admitted for left facial/head, arm and leg numbness r/o evolving CVA vs. TIA. PLAN: 1. Left facial/head, arm and leg numbness r/o evolving CVA vs. TIA. Hx of radiculopathy in lower ext; however, the left upper and left face/head is new. CT head neg. F/u lyme abs, neuro checks Q4 hours, CTA of Head, CTA of neck, statin, ASA. Consider MRI in AM if symptoms persist or worsen. 2. CAD s/p CABG. Denies chest pain, SOB. C/w BB, statin, ASA, nitro PRN. 3. Chronic back pain with radiculopathy. C/w lyrica. 4. HTN. Stable. C/w BB. 5. Recurrent kidney stones. Stable. F/u with urology as o/p. 6. Depression/anxiety. Denies HI/SI. C/w home med. 7. Yeast infections of abdominal pannus/groin. Nystatin powder BID. 8. DVT px. Enoxaparin SC. DISPOSITION: Admitted under observation status. Plan is discharge home when work up is complete. Vital Signs Vital Signs Date Time Temp Pulse Resp B/P (MAP) Pulse Ox O2 Delivery O2 Flow Rate FiO2 08/15/19 21:04 63 20 151/78 (102) 99 Room Air Laboratory Data Labs 24H Laboratory Tests 2 08/15/19 21:04: Prothrombin Time 14.0, Prothromb Time International Ratio 1.11 08/15/19 21:06: Immature Granulocyte % (Auto) 1.1, Neutrophils (%) (Auto) 55.6, Lymphocytes (%) (Auto) 28.7, Monocytes (%) (Auto) 8.4H, Eosinophils (%) (Auto) 5.6H, Basophils (%) (Auto) 0.6, Neutrophils # (Auto) 5.3, Lymphocytes # (Auto) 2.7, Monocytes # (Auto) 0.8, Eosinophils # (Auto) 0.5, Basophils # (Auto) 0.1, Nucleated Red Blood Cells % (auto) 0.0, Anion Gap 6L, Glomerular Filtration Rate > 60.0, Calcium Level 8.1L, Magnesium Level 1.9, Total Bilirubin 0.6, Direct Bilirubin 0.2, Aspartate Amino Transf (AST/SGOT) 24, Alanine Aminotransferase (ALT/SGPT) 30, Alkaline Phosphatase 94, Total Creatine Kinase 88, Creatine Kinase MB 1.6, Creatine Kinase MB Relative Index 1.82, Troponin I < 0.02, Total Protein 7.0, Albumin 3.6, Albumin/Globulin Ratio 1.1, Lipase 141 CBC/BMP Laboratory Tests 08/15/19 21:06 Home Medications Scheduled Allopurinol (Zyloprim) 300 Mg Tab, 300 MG PO DAILY Aspirin (Aspirin EC) 81 Mg Tab, 81 MG PO DAILY Atorvastatin Calcium (Atorvastatin Calcium) 80 Mg Tablet, 80 MG PO QHS Calcium Citrate/Vitamin D3 (Citracal + D Maximum Caplet) 1 Tab Tab, 3 TAB PO BID Cyanocobalamin (Vitamin B-12) (Vitamin B-12) 1,000 Mcg Tab, 1,000 MCG PO DAILY Docusate Sodium (Dok) 100 Mg Capsule, 100 MG PO BID Duloxetine Hcl (Duloxetine HCl) 60 Mg Cap, 60 MG PO DAILY Glucosamine Sulfate Dipot Chlr (Glucosamine) 1,000 Mg Tablet, 1,000 MG PO BID Metoprolol Tartrate (Metoprolol Tartrate) 25 Mg Tablet, 25 MG PO BID Nystatin (Nystatin Powder) 15 Gm Powder, 1 APLCT TOP ASDIRECTED APPLY TO GROIN AREA Omeprazole (Omeprazole) 40 Mg Cap, 40 MG PO DAILY Pregabalin (Lyrica) 150 Mg Capsule, 150 MG PO BID Sildenafil Citrate (Viagra) 50 Mg Tablet, 50 MG PO ASDIRECTED for erectile dysfunction 1 hour before sexual activity Ubidecarenone/Vit E Acet (Co Q-10 100 mg Softgel) 100 Mg Cap, 200 MG PO BID Scheduled PRN Clotrimazole/Betamethasone Dip (Clotrimazole-Betamethasone Crm) 15 Gm Cream..g., 1 DOSE TOP BID PRN for ITCHING stomach Nitroglycerin (Nitrostat) 0.4 Mg Tab.subl, 0.4 MG SL NITRO PRN for CHEST PAIN Ondansetron HCl (Ondansetron HCl) 4 Mg Tablet, 4 MG PO Q6H PRN for NAUSEA Triamcinolone Acet (Triamcinolone Acetonide 0.1% Oint) 15 Gm Oint...g., 1 DOSE TOP BID PRN for ITCHING extremities Allergies Coded Allergies: Penicillins (Verified Allergy, Intermediate, rash, 01/31/19) naproxen (Verified Adverse Reaction, Intermediate, Gastric bypass, 01/31/19) ibuprofen (Verified Adverse Reaction, Unknown, gastric bypass, 01/31/19) A-FIB/CHADSVASC A-FIB History Current/History of A-Fib/PAF?: No Current PO Anticoag Therapy: No Age/Risk Factor Scoring CHADSVASC: CHADSVASC Response (Comments) Value Age Risk Factor Age < 65 years old 0 Gender Risk Factor Male 0 Hx of CHF No 0 Hx of HTN Yes 1 Hx of Stroke/TIA/or VTE No 0 Hx of Diabetes Yes 1 Hx of Vascular Disease No 0 Total 2 Treatment Treatment ordered: Other Other anticoagulant ordered: enoxaparin Anna Zambrano MD August 15, 2019 22:46
[2019-08-16] MEDS ORDERED: ONDANSETRON 4 MG TAB PO PRN
[2019-08-16] MEDS ORDERED: TRIAMCINOLONE ACET 0.1% OINTMENT 15 GM TOP PRN
[2019-08-16] MEDS ORDERED: NITROGLYCERIN 0.4 MG SUBL TABLET SL PRN
[2019-08-16] MEDS ORDERED: ISOVUE-370 76% 100ML VIAL As Ordered ONE (00:08)
[2019-08-16 00:30] VITALS: BP 158/85
--- NOTE | 2019-08-16 00:33 | REPVR ---
PROCEDURE INFORMATION: Exam: CT Angiography Head With Contrast Exam date and time: 08/15/2019 11:48 PM Age: 64 years old Clinical indication: Numbness; Patient HX: PT states numb, tingly sensation left side of head; Additional info: Weakness, numbness left side body TECHNIQUE: Imaging protocol: Computed tomography angiography of the head with intravenous contrast. 3D rendering: MIP and/or 3D reconstructed images were created by the technologist. Radiation optimization: All CT scans at this facility use at least one of these dose optimization techniques: automated exposure control; mA and/or kV adjustment per patient size (includes targeted exams where dose is matched to clinical indication); or iterative reconstruction. Contrast material: ISO; Contrast volume: 100 ml; Contrast route: AC; COMPARISON: CT Head without contrast 2019-08-15 21:13 FINDINGS: Anterior cerebral arteries: No occlusion or significant stenosis. No aneurysm. Right internal carotid artery: Intracranial segment is patent with no significant stenosis or occlusion. No aneurysm. Right middle cerebral artery: No occlusion or significant stenosis. No aneurysm. Right posterior cerebral artery: No occlusion or significant stenosis. No aneurysm. Right vertebral artery: No occlusion or significant stenosis. No aneurysm. Left internal carotid artery: Intracranial segment is patent with no significant stenosis or occlusion. No aneurysm. Left middle cerebral artery: No occlusion or significant stenosis. No aneurysm. Left posterior cerebral artery: No occlusion or significant stenosis. No aneurysm. Left vertebral artery: No occlusion or significant stenosis. No aneurysm. Basilar artery: No occlusion or significant stenosis. No aneurysm. IMPRESSION: No large vessel stenosis or occlusion. Electronically signed by: Cayetano Schilling On 08/16/2019 00:32:39 AM
--- NOTE | 2019-08-16 00:40 | REPVR ---
PROCEDURE INFORMATION: Exam: CT Angiography Neck With Contrast Exam date and time: 08/15/2019 11:48 PM Age: 64 years old Clinical indication: Numbness; Patient HX: PT states left side head numb, tingly; Additional info: Weakness, numbness left side body TECHNIQUE: Imaging protocol: Computed tomography angiography of the neck with intravenous contrast. 3D rendering: MIP and/or 3D reconstructed images were created by the technologist. Radiation optimization: All CT scans at this facility use at least one of these dose optimization techniques: automated exposure control; mA and/or kV adjustment per patient size (includes targeted exams where dose is matched to clinical indication); or iterative reconstruction. Contrast material: ISO; Contrast volume: 100 ml; Contrast route: AC; COMPARISON: No relevant prior studies available. FINDINGS: Limitations: Limited by patient's body habitus. Right common carotid artery: Mild atherosclerotic plaque in the predominately distal right common carotid artery and the bifurcation. Right internal carotid artery: Mild atherosclerotic plaque in the carotid bulb and proximal right internal carotid artery with less than 50% stenosis by NASCET criteria. Right external carotid artery: No occlusion or stenosis of the origin. Right vertebral artery: No stenosis. No dissection or occlusion. Left common carotid artery: Mild atherosclerotic plaque in the predominately distal left common carotid artery and the bifurcation. Left internal carotid artery: Mild atherosclerotic plaque in the proximal left internal carotid artery and carotid bulb with less than 50% stenosis by NASCET criteria. Left external carotid artery: No occlusion or stenosis of the origin. Left vertebral artery: No stenosis. No dissection or occlusion. Bones/joints: No acute fracture. Soft tissues: Normal. No significant soft tissue swelling. IMPRESSION: Mild bilateral proximal ICA atherosclerotic disease with less than 50% stenosis. REFERENCES: NASCET CRITERIA. The degree of internal carotid artery stenosis is based on NASCET criteria. Normal is no stenosis. Mild is less than 50% stenosis. Moderate is 50-69% stenosis. Severe is 70% to 99% stenosis. Total occlusion is no detectable patent lumen. Electronically signed by: Cayetano Schilling On 08/16/2019 00:40:35 AM
[2019-08-16] MEDS: DOCUSATE SODIUM 100 MG CAP PO SCH ×3 (01:16→20:46)
[2019-08-16] MEDS: ATORVASTATIN 20 MG TAB PO SCH ×2 (01:17→20:46)
[2019-08-16] MEDS: PREGABALIN 75 MG CAP(LYRICA) PO SCH ×3 (01:18→20:46)
[2019-08-16] MEDS: METOPROLOL TART 25 MG TABLET PO SCH ×3 (01:18→20:47)
[2019-08-16 06:00] VITALS: BP 136/75
[2019-08-16 06:27] LABS: HEMATOCRIT 41.1 % (42.0-52.0); HEMOGLOBIN 13.5 g/dl (13.5-17.5); MEAN CORPUSCULAR HEMOGLOBIN 31.1 pg (27.0-33.0); MEAN CORPUSCULAR HGB CONC 32.8 g/dl (32.0-36.5); MEAN CORPUSCULAR VOLUME 94.7 fl (80.0-96.0); PLATELET COUNT, AUTOMATED 167 10^3/uL (150-450); RED BLOOD COUNT 4.34 10^6/uL (4.30-6.10); WHITE BLOOD COUNT 10.1 10^3/uL (4.0-10.0)
[2019-08-16 06:46] LABS: ALBUMIN 3.1 GM/DL (3.2-5.2); ALT/SGPT 28 U/L (12-78); BILIRUBIN,TOTAL 0.6 MG/DL (0.2-1.0); BLOOD UREA NITROGEN 18 MG/DL (7-18); CALCIUM LEVEL 7.8 MG/DL (8.8-10.2); CARBON DIOXIDE LEVEL 25 MEQ/L (21-32); CHLORIDE LEVEL 112 MEQ/L (98-107); CREATININE FOR GFR 1.07 MG/DL (0.70-1.30); GLOMERULAR FILTRATION RATE > 60.0 (>49); GLUCOSE, FASTING 139 MG/DL (70-100); POTASSIUM SERUM 3.8 MEQ/L (3.5-5.1); SODIUM LEVEL 144 MEQ/L (136-145); TOTAL PROTEIN 6.6 GM/DL (6.4-8.2)
--- NOTE | 2019-08-16 07:51 | REP ---
Clinical: Chest pain . Comparison: 01/31/2019 . Findings: The mediastinum and cardiac silhouette are stable and within normal limits for portable technique. Prior sternotomy noted. The lung sinclair are clear without acute consolidation, effusion, or pneumothorax. Skeletal structures are intact. Impression: No acute cardiopulmonary process appreciated. Electronically Signed by Willie Moore MD 08/16/2019 07:42 A
[2019-08-16 08:09] LABS: CHOLESTEROL LEVEL 91 MG/DL (<200); HDL CHOLESTEROL 28 MG/DL (>40); LDL CHOLESTEROL 32 MG/DL (<100); NON-HDL-C 63 MG/DL; TRIGLYCERIDES LEVEL 154 MG/DL (<150)
[2019-08-16] MEDS: ASPIRIN 81 MG ENTERIC TAB PO SCH (08:30)
[2019-08-16] MEDS: OMEPRAZOLE 20 MG CAP PO SCH (08:30)
[2019-08-16] MEDS: CYANOCOBALAMIN 500 MCG TAB PO SCH (08:30)
[2019-08-16] MEDS: allopurinoL 300 MG TAB PO SCH (08:31)
[2019-08-16] MEDS: NYSTATIN 100,000 UNITS/GM TOPICAL PWD 15 GM TOP SCH ×2 (08:31→20:47)
[2019-08-16] MEDS: ENOXAPARIN 40MG/0.4ML SYRINGE (J1650 PER 10MG) SC SCH (08:32)
[2019-08-16] MEDS: DULoxetine 30 MG CAP (CYMBALTA) PO SCH (08:35)
[2019-08-16 08:48] LABS: HEMOGLOBIN A1c 6.7 %
--- NOTE | 2019-08-16 12:55 | ECGEPIP ---
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
[2019-08-16] MEDS: ACETAMINOPHEN 500 MG TAB PO PRN (13:41)
[2019-08-16 14:00] VITALS: BP 116/58
--- NOTE | 2019-08-16 16:13 | IPNPDOC ---
Date Seen The patient was seen on 08/16/19. Progress Note SUBJECTIVE: Jose is a 64-year-old male with PMHx of CAD s/p CABG (Nov 2015), TIA (Mar 2016), hypertension, spinal stenosis, and GERD, who presented to the ED last evening with a chief complaint of left facial numbness along with left arm and left leg numbness with a sensation of his legs, feeling as though they may give out. He endorsed accompanying mild dizziness. His symptoms came on earlier in the day while driving, after which point he had his felt. Medical evaluation was necessary in the ED last night, imaging (chest x-ray, head CT, neck CTA, chest CTA) was relatively unremarkable. EKG also was unremarkable with sinus rhythm. He was admitted for persistence of concerning symptoms. Jose was seen and examined this morning by the hospitalist service while lying in bed. He does report a previous TIA that occurred not long after his November 2015 CABG surgery. His was subsequently contacted and informed us the TIA was in early March 2016. He woke up in the middle the night and was unable to see out of his left eye, but this resolved quickly. He didn't go to the emergency department for evaluation, but through his PCP was able to be seen by neurology on referral. He had an MRI of the brain done with contrast on 04/03/2016. On review of [facility] records, unfortunately this study does not appear. During our exam today, Jose continued to endorse some mildmoderate left facial and periorbital tingling, but his left upper and lower extremity tingling had all but resolved. He denies any vision changes, eye pain, auditory issues, ear pain, loss of consciousness, chest pain, chest pressure, palpitations, shortness of breath, nausea, or vomiting. He had no issues and bleeding to and from the bathroom, denying any instability or falls. OBJECTIVE PHYSICAL EXAMINATION: VITAL SIGNS: Please see below. GENERAL: Pleasant, morbidly obese male lying in bed. No acute distress. Alert and oriented 3. HEENT: Normocephalic, atraumatic. Wearing eyeglasses. Anicteric, noninjected sclera. PERRLA. EOMI. No pharyngeal erythema or exudate. No cervical lymphadenopathy appreciated. CARDIOVASCULAR: Regular rate, regular rhythm. +S1, S2 with no murmurs, rubs or gallops appreciated. 2+ radial pulses bilaterally. Capillary refill less than 2 seconds. RESPIRATORY: Clear to auscultation bilaterally with no adventitious breath sounds appreciated. Symmetric chest expansion. Breathing room air. Speaking full sentences. ABDOMINAL: Obese, soft, nontender with normoactive bowel sounds throughout. No guarding or rigidity. There is some mildly irritated, erythematous skin under the right flank pain is. EXTREMITIES: Bilateral nonpitting lower extremity edema. Feet are cool to touch. No signs of cyanosis. NEUROLOGICAL: Awake, alert and oriented 3. Cranial nerves III through XII grossly intact. No dysdiadochokinesis. Appropriate [id number] testing. Responded appropriately to questions and commands. PSYCHOLOGICAL: Mood and affect appear appropriate. LABORATORY DATA, IMAGING STUDIES, MICROBIOLOGY: Please see below. Echocardiogram: Ordered this morning (08/15) DVT prophylaxis ordered?: Yes; JASWINDER Whitmore ASSESSMENT AND PLAN: This is a 64-year-old male with h/o CAD s/p CABG (11/2015), TIA (03/2016), htn, spinal stenosis, gerd, who presented to the ED complaining of moderate dizziness with left-sided tingling over the face, upper and lower extremities with accompanying sensation of balance instability. Initial imaging in the ED was unremarkable, yet he was admitted due to persisting concerning symptoms. #Left-sided facial, upper extremity, and lower extremity paresthesias possibly 2/2 TIA vs evolving CVA -After initial imaging in the ED was relatively unremarkable - - other than neck cta that showed b/l prox ICA atherosclerotic dz w/ <50% stenosis - - an MRI without contrast was ordered today to assess for possible evolving CVA, with results still pending. -Echo ordered to assess for any potential source of thrombus that could potentially lead to CVA causing emboli. -Continue aspirin and high-dose statin. -EKG in ED unrevealing. Overnight telemetry: normal sinus rhythm w/ HRs in 70s. #Hypertension -Continue home Lopressor #History of chronic lumbago and spinal stenosis with radiculopathy -Home pregabalin continued on admission #Chronic right flank panniculitis -Nystatin ordered #History of anxiety and depression. Continue home duloxetine Disposition: Pending results of MRI this morning to r/o possible evolving CVA. VS, I&O, 24H, Fishbone Vital Signs/I&O Vital Signs Date Time Temp Pulse Resp B/P (MAP) Pulse Ox O2 Delivery O2 Flow Rate FiO2 08/16/19 14:00 97.9 81 18 116/58 (77) 96 Room Air I&O- Last 24 Hours up to 6 AM 08/16/19 06:00 Intake Total 960 ml Output Total 500 ml Balance 460 ml Laboratory Data 24H LABS Laboratory Tests 2 08/15/19 21:04: Prothrombin Time 14.0, Prothromb Time International Ratio 1.11 08/15/19 21:06: Immature Granulocyte % (Auto) 1.1, Neutrophils (%) (Auto) 55.6, Lymphocytes (%) (Auto) 28.7, Monocytes (%) (Auto) 8.4H, Eosinophils (%) (Auto) 5.6H, Basophils (%) (Auto) 0.6, Neutrophils # (Auto) 5.3, Lymphocytes # (Auto) 2.7, Monocytes # (Auto) 0.8, Eosinophils # (Auto) 0.5, Basophils # (Auto) 0.1, Nucleated Red Blood Cells % (auto) 0.0, Anion Gap 6L, Glomerular Filtration Rate > 60.0, Calcium Level 8.1L, Magnesium Level 1.9, Total Bilirubin 0.6, Direct Bilirubin 0.2, Aspartate Amino Transf (AST/SGOT) 24, Alanine Aminotransferase (ALT/SGPT) 30, Alkaline Phosphatase 94, Total Creatine Kinase 88, Creatine Kinase MB 1.6, Creatine Kinase MB Relative Index 1.82, Troponin I < 0.02, Total Protein 7.0, Albumin 3.6, Albumin/Globulin Ratio 1.1, Lipase 141 08/16/19 05:22: Nucleated Red Blood Cells % (auto) 0.0, Anion Gap 7L, Glomerular Filtration Rate > 60.0, Calcium Level 7.8L, Total Bilirubin 0.6, Aspartate Amino Transf (AST/SGOT) 15, Alanine Aminotransferase (ALT/SGPT) 28, Alkaline Phosphatase 76, Total Protein 6.6, Albumin 3.1L, Albumin/Globulin Ratio 0.9, Estimated Mean Plasma Glucose 146H, Hemoglobin A1c 6.7, Triglycerides Level 154H, Total Denisse sterol 91, LDL Cholesterol 32, Non-HDL Cholesterol (LDL + VLDL) 63, Total HDL Cholesterol 28L, Cholesterol/HDL Ratio 3.250 CBC/BMP Laboratory Tests 08/15/19 21:06 08/16/19 05:22 GME ATTESTATION GME ATTESTATION My faculty preceptor for this patient encounter was physically present during the encounter and was fully available. All aspects of the patient interview, examination, medical decision making process, and medical care plan development were reviewed and approved by the faculty preceptor. The faculty preceptor is aware and concurs with the plan as stated in the body of this note and will attest to such by his/her cosignature. ATTENDING NOTE Patient seen and examined by me with the residents. Agree with the above a ssessment and plan ELISA ODOM D.O. August 16, 2019 16:13 URIEL COFFMAN MD August 16, 2019 17:06
--- NOTE | 2019-08-16 18:32 | REPVR ---
PROCEDURE INFORMATION: Exam: MR Head Without Contrast Exam date and time: 08/16/2019 5:49 PM Age: 64 years old Clinical indication: Numbness / parasthesia; Left; Patient HX: PT states lt sided faical numbness that has since subsided, HX TIA priors @[facility] with no access to reports or images; Additional info: R/O CVA TECHNIQUE: Imaging protocol: MR of the head without contrast. COMPARISON: CT Head without contrast 08/15/2019 9:13 PM FINDINGS: Brain: Patchy areas of increased T2/FLAIR signal intensity in the periventricular and subcortical white matter, consistent with chronic small vessel ischemic disease. No acute infarct. No hemorrhage. No edema. Ventricles: Prominence of the cortical sulci, cisterns and ventricular system, consistent with cerebral and cerebellar volume loss. Bones/joints: Unremarkable. Soft tissues: Unremarkable. Sinuses: Normal as visualized. No acute sinusitis. Mastoid air cells: Normal as visualized. No mastoid effusion. Orbits: Unremarkable. IMPRESSION: 1. No acute intracranial pathology . 2. Additional findings, as above. Electronically signed by: Kavon Nova On 08/16/2019 18:32:39 PM
[2019-08-17 06:00] VITALS: BP 137/67
[2019-08-17 06:26] LABS: HEMATOCRIT 41.6 % (42.0-52.0); MEAN CORPUSCULAR HEMOGLOBIN 31.6 pg (27.0-33.0); MEAN CORPUSCULAR HGB CONC 33.7 g/dl (32.0-36.5); MEAN CORPUSCULAR VOLUME 93.9 fl (80.0-96.0); PLATELET COUNT, AUTOMATED 155 10^3/uL (150-450); RED BLOOD COUNT 4.43 10^6/uL (4.30-6.10); WHITE BLOOD COUNT 8.2 10^3/uL (4.0-10.0)
[2019-08-17 06:42] LABS: BLOOD UREA NITROGEN 15 MG/DL (7-18); CALCIUM LEVEL 7.9 MG/DL (8.8-10.2); CARBON DIOXIDE LEVEL 24 MEQ/L (21-32); CHLORIDE LEVEL 111 MEQ/L (98-107); CREATININE FOR GFR 1.08 MG/DL (0.70-1.30); GLOMERULAR FILTRATION RATE > 60.0 (>49); GLUCOSE, FASTING 125 MG/DL (70-100); POTASSIUM SERUM 3.9 MEQ/L (3.5-5.1); SODIUM LEVEL 142 MEQ/L (136-145)
[2019-08-17] MEDS: ENOXAPARIN 40MG/0.4ML SYRINGE (J1650 PER 10MG) SC SCH (09:00)
[2019-08-17] MEDS: DOCUSATE SODIUM 100 MG CAP PO SCH (09:00)
[2019-08-17] MEDS: allopurinoL 300 MG TAB PO SCH (09:17)
[2019-08-17] MEDS: DULoxetine 30 MG CAP (CYMBALTA) PO SCH (09:17)
[2019-08-17] MEDS: ASPIRIN 81 MG ENTERIC TAB PO SCH (09:17)
[2019-08-17] MEDS: CYANOCOBALAMIN 500 MCG TAB PO SCH (09:17)
[2019-08-17 09:18] VITALS: BP 121/69
[2019-08-17] MEDS: OMEPRAZOLE 20 MG CAP PO SCH (09:18)
[2019-08-17] MEDS: PREGABALIN 75 MG CAP(LYRICA) PO SCH (09:18)
[2019-08-17] MEDS: METOPROLOL TART 25 MG TABLET PO SCH (09:18)
[2019-08-17] MEDS: NYSTATIN 100,000 UNITS/GM TOPICAL PWD 15 GM TOP SCH (09:19)
[2019-08-17] MEDS: ACETAMINOPHEN 500 MG TAB PO PRN (09:19)
--- NOTE | 2019-08-17 10:24 | DS.PDOC ---
Discharge Summary General Date of Admission August 15, 2019 at 20:50 Date of Discharge 08/17/2019 Discharge Summary PROCEDURES PERFORMED DURING STAY: [None]. ADMITTING DIAGNOSES: 1. Paresthesias 2. CAD 3. HTN 4. Recurrent kidney stones 5. Depression/anxiety 6. Candidiasis DISCHARGE DIAGNOSES: 1. Paresthesias 2. CAD 3. HTN 4. Recurrent kidney stones 5. Depression/anxiety 6. Candidiasis COMPLICATIONS/CHIEF COMPLAINT: Paresthesia. HISTORY OF PRESENT ILLNESS: "Patient is a 64 y/o M with PMH of spinal stenosis, CAD s/p CABG, chronic lower back pain, depression, anxiety, HTN who presented to [facility] ER with chief complaint of feeling like he was going to "pass out" this afternoon with ongoing left face and head, arm and leg numbness beginning several weeks ago. He states that he has had decreased sensation in those areas. The numbness/tingling is described this as intermittent, gets worse then will get better. He denies pain in his face at all. Associated symptoms include occasional blurry vision of left eye which is new, occasional lightheadedness, dizziness, a wierd feeling of talking but not quite understanding what he is saying, increased weakness of left leg that felt like it was going to "give out on me". He has floaters in his vision normally and has for years. Denies drooling, dropping of face, falls, headaches, photophobia, prior CVA or TIA. He has chronic numbness of the left 1-3 digits of foot, occasional aching of left arm that has been going on for the past 1 yr, attributed to a pinched nerve in the back. He was diagnosed by his primary provider and has not seen a neurologist. He has no history of lyme disease, not outside a lot. No prior nerve damage/trauma in the face. No medication changes or increased stressful situations. He denied chest pain, shortness of breath, n/v/d, fevers, chills, recent illnesses. In ER, VS were stable. Labs unremarkable. CT head neg. Neurological exam was unremarkable;however, patient continued to describe the numbness and tingling on his left side. Although strength was 5/5 in all extremities, patient felt his left arm was weaker. Due to continued concerning symptoms, patient was admitted for left facial, arm and leg numbness r/o evolving CVA vs. TIA." HOSPITAL COURSE: Pt was admitted for CVA/TIA rule out. As noted above, ER work- up was benign, labs stable, non-con CT head was negative, negative troponins. 08/16/2019 "Jose was seen and examined this morning by the hospitalist service while lying in bed. He does report a previous TIA that occurred not long after his November 2015 CABG surgery. His was subsequently contacted and informed us the TIA was in early March 2016. He woke up in the middle the night and was unable to see out of his left eye, but this resolved quickly. He didn't go to the emergency department for evaluation, but through his PCP was able to be seen by neurology on referral. He had an MRI of the brain done with contrast on 04/03/2016. On review of [facility] ([place]) records, unfortunately this study does not appear. During our exam today, Jose continued to endorse some mildmoderate left facial and periorbital tingling, but his left upper and lower extremity tingling had all but resolved. He denies any vision changes, eye pain, auditory issues, ear pain, loss of consciousness, chest pain, chest pressure, palpitations, shortness of breath, nausea, or vomiting. He had no issues and bleeding to and from the bathroom, denying any instability or falls." 08/17/2019 Pt was seen sitting up in bed this morning, very anxious to go home. He denied any numbness or tingling or residual neuro symptoms. We discussed the results of his non-con MR and CTA - both negative for acute intracranial pathology. Pt further denied any cardiac symptoms. His ECHO was completed 08/16/2019, results pending. 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 I have also referred him to neurology based on his TIA history. DISCHARGE MEDICATIONS: Please see below. ALLERGIES: Please see below. PHYSICAL EXAMINATION ON DISCHARGE: General Exam: Positive: Alert, Cooperative, No Acute Distress Eye Exam: Positive: PERRLA, Conjunctiva & lids normal, EOMI; Negative: Sclera icteric ENT Exam: Positive: Atraumatic, Mucous membr. moist/pink, Pharynx Normal Neck Exam: Positive: Supple; Negative: JVD, thyromegaly Chest Exam: Positive: Clear to auscultation, Normal air movement Heart Exam: Positive: Rate Normal, Regular Rhythm, Normal S1, Normal S2; Negative: Murmurs, Rubs Telemetry: Positive: No significant arrhythmia Abdomen Exam: Positive: Normal bowel sounds (large, rounded abdomen ), Soft; Negative: Tenderness Extremity Exam: Positive: Normal pulses; Negative: Clubbing, Cyanosis, Edema Skin Exam: Positive: Nl turgor and temperature; Negative: Breakdown, Lesion Neuro Exam: Positive: Normal Speech, Strength at 5/5 X4 ext, Cranial Nerves 3- 12 NL, Other (Full coordination ) Psych Exam: Positive: Mood NL, Oriented x 3 LABORATORY DATA: Please see below. IMAGING: MRI-Brain without Contrast IMPRESSION: 1. No acute intracranial pathology . 2. Additional findings, as above. CT ANGIO HEAD IMPRESSION: No large vessel stenosis or occlusion. CT ANGIO NECK IMPRESSION: Mild bilateral proximal ICA atherosclerotic disease with less than 50% stenosis. PORTABLE CHEST X-RAY Impression: No acute cardiopulmonary process appreciated. ECHO - results pending. ACTIVITY: [As tolerated]. DIET: [As tolerated]. DISCHARGE PLAN: Discharge home with close cardiology, neuro and PCP follow-up. DISPOSITION: Discharge home. DISCHARGE INSTRUCTIONS: 1. Discharge home with close cardiology (2-3 days), neuro (referral) and PCP (5- 7 days) follow-up. ITEMS TO FOLLOWUP ON ON OUTPATIENT: 1. See above DISCHARGE CONDITION: [Stable]. TIME SPENT ON DISCHARGE: 34 minutes. Vital Signs/I&Os Vital Signs Date Time Temp Pulse Resp B/P (MAP) Pulse Ox O2 Delivery O2 Flow Rate FiO2 08/17/19 09:18 96 121/69 08/17/19 06:00 98.2 17 94 Room Air I&O- Last 24 Hours up to 6 AM 08/17/19 06:00 Intake Total 1020 ml Output Total 250 ml Balance 770 ml Laboratory Data Labs 24H Laboratory Tests 2 08/17/19 05:23: Nucleated Red Blood Cells % (auto) 0.0, Anion Gap 7L, Glomerular Filtration Rate > 60.0, Calcium Level 7.9L CBC/BMP Laboratory Tests 08/17/19 05:23 Discharge Medications Scheduled Allopurinol (Zyloprim) 300 Mg Tab, 300 MG PO DAILY, (Reported) Aspirin (Aspirin EC) 81 Mg Tab, 81 MG PO DAILY, (Reported) Atorvastatin Calcium (Atorvastatin Calcium) 80 Mg Tablet, 80 MG PO QHS, (Reported) Calcium Citrate/Vitamin D3 (Citracal + D Maximum Caplet) 1 Tab Tab, 3 TAB PO BID, (Reported) Cyanocobalamin (Vitamin B-12) (Vitamin B-12) 1,000 Mcg Tab, 1,000 MCG PO DAILY, (Reported) Docusate Sodium (Dok) 100 Mg Capsule, 100 MG PO BID, (Reported) Duloxetine Hcl (Duloxetine HCl) 60 Mg Cap, 60 MG PO DAILY, (Reported) Glucosamine Sulfate Dipot Chlr (Glucosamine) 1,000 Mg Tablet, 1,000 MG PO BID, ( Reported) Metoprolol Tartrate (Metoprolol Tartrate) 25 Mg Tablet, 25 MG PO BID, (Reported) Nystatin (Nystatin Powder) 15 Gm Powder, 1 APLCT TOP ASDIRECTED, (Reported) APPLY TO GROIN AREA Omeprazole (Omeprazole) 40 Mg Cap, 40 MG PO DAILY, (Reported) Pregabalin (Lyrica) 150 Mg Capsule, 150 MG PO BID, (Reported) Ubidecarenone/Vit E Acet (Co Q-10 100 mg Softgel) 100 Mg Cap, 200 MG PO BID, (Reported) Scheduled PRN Clotrimazole/Betamethasone Dip (Clotrimazole-Betamethasone Crm) 15 Gm Cream..g., 1 DOSE TOP BID PRN for ITCHING, (Reported) stomach Nitroglycerin (Nitrostat) 0.4 Mg Tab.subl, 0.4 MG SL NITRO PRN for CHEST PAIN, (Reported) Ondansetron HCl (Ondansetron HCl) 4 Mg Tablet, 4 MG PO Q6H PRN for NAUSEA, (Reported) Triamcinolone Acet (Triamcinolone Acetonide 0.1% Oint) 15 Gm Oint...g., 1 DOSE TOP BID PRN for ITCHING, (Reported) extremities Allergies Coded Allergies: Penicillins (Verified Allergy, Intermediate, rash, 01/31/19) naproxen (Verified Adverse Reaction, Intermediate, Gastric bypass, 01/31/19) ibuprofen (Verified Adverse Reaction, Unknown, gastric bypass, 01/31/19) KARINA PRATER PA-C August 17, 2019 10:24
--- NOTE | 2019-08-17 15:59 | ECHO ---
DATE OF PROCEDURE: 08/16/2019 AGE: 64 GENDER: Male. HEIGHT: 67 inches WEIGHT: 295 pounds BODY SURFACE AREA: 2.38 sq m INPATIENT: [address] [place] [address] room 4202. REFERRING PHYSICIAN: Amaury Finley INDICATION: Transient ischemic attack (TIA) - cardiac source of embolic material? MEASUREMENTS: 2D measurements: RV: 2.9 cm LV: 5.0 cm Septum: 1.3 cm Posterior wall: 1.3 cm Aortic root: 3.4 cm LA: 4.9 cm LVEF: 65% Doppler measurements: AV: 1.26 m/s LVOT: 1.06 m/s LVOT diameter: 2.1 cm MV-E: 98 A: 80 EA ratio: 1.1 Early mitral deceleration time: 232 ms E prime medial: 6.9 A prime medial: 9.1 E prime lateral: 8.9 Average E/E prime ratio: 11.4/PCWP: 16 mmHg PV: 1.0 m/s Pulmonary artery acceleration time: 102 ms RVSP: 36 mmHg IVC: 1.8 cm COMMENTS: Normal sinus rhythm without intraventricular conduction disturbance. Technically challenging study in light of the patient's body habitus, but diagnostically useful information was still obtained. M-mode and two-dimensional echocardiography was performed with pulsed, continuous wave, color flow, and tissue Doppler studies. Mild left ventricle hypertrophy with normal wall motion. Moderately dilated left atrium with grade 2 left ventricle (LV) diastolic dysfunction, but current estimated mean left atrial pressure upper limits of normal to slightly increased. Normal right heart chamber sizes and motion with Doppler evidence of mild pulmonary hypertension. Normal inferior vena cava (IVC) size against an elevated central venous pressure. Normal appearing and functioning valvular structures. No apparent intracardiac mass or pericardial effusion. A saline contrast bubble study was performed from the subcostal four-chamber projection. Adequate opacification of the right heart chambers was observed with no contrast in the left heart - negative contrast study.
[2019-08-19 17:17] LABS: Lyme Disease IgG/IgM Antibodie <0.91 ISR (0.00-0.90); Lyme Disease IgM Ab Quantitati <0.80 index (0.00-0.79)
== END 2019-08-17 10:35 | disposition home or self-care (01) ==
LOC: M ED 20:49 → M ED INP 20:50 → ENRESERV 23:51 → M MSPAV 08-16 00:36
PROVIDERS: ADMIT Internal Medicine; ATTEND Internal Medicine
DX: R20.2 Paresthesia of skin (principal); I25.10 Atherosclerotic heart disease of native coronary artery without angina pectoris; Z95.1 Presence of aortocoronary bypass graft; I10 Essential (primary) hypertension; Z87.442 Personal history of urinary calculi; F32.9 Major depressive disorder, single episode, unspecified; F41.9 Anxiety disorder, unspecified; B37.9 Candidiasis, unspecified; M48.061 Spinal stenosis, lumbar region without neurogenic claudication; G47.00 Insomnia, unspecified; K21.9 Gastro-esophageal reflux disease without esophagitis; M10.9 Gout, unspecified; Z98.84 Bariatric surgery status; Z87.891 Personal history of nicotine dependence; N52.9 Male erectile dysfunction, unspecified; Z79.82 Long term (current) use of aspirin; Z79.899 Other long term (current) drug therapy; Z88.0 Allergy status to penicillin; Z88.8 Allergy status to other drugs, medicaments and biological substances
CPT/HCPCS: 36415; 70450; 70496; 70498; 70551; 71045; 80048; 80053; 80061; 80076; 82550; 82553; 83036; 83690; 83735; 84484; 85025; 85027; 85610; 86617; 93005; 93041; 93306; 94760; 96360; 96361; 99285; G0378; J1650; Q9967

== ENCOUNTER → 2020-04-13 | Outpatient (CLI) | payer SELFPAY ==
[~2020-04-13] MED LIST changes: +ALLO100T PO; +AMIT25TA17 PO; +CLOT1CRE71 TOP; +COLC0.6T47 PO; -COLC1TAB13 PO; +COMBAER6 INH; +DEXA2TA PO; +DOK1CAP7 PO; +FLOM0.4C39 PO; +GNP1000T11 PO; -LISI-538 PO; +LISI10TA22 PO; -LISI10TA4 PO; +LISI20TA33 PO; +NITR4TASL SL; +NYST1POW9 TOP; +TRIA1OI TOP; +VIAG100T PO; +VITA250T4 PO; +ZINC220CA PO
== END ==
LOC: M LABSMTC 10:11
PROVIDERS: ATTEND Pediatrics
DX: Z20.822 Contact with and (suspected) exposure to COVID-19 (principal)

== ENCOUNTER 2020-04-21 16:10 | Inpatient (IN) | payer MEDICARE ==
[~2020-04-21] VITALS: Ht 172.7 cm; Wt 130.8 kg
[~2020-04-21 16:10] MED LIST changes: -ALLO100T PO; -AMIT25TA17 PO; -COMBAER6 INH; -DEXA2TA PO; -FLOM0.4C39 PO; +LISI-538 PO; -LISI10TA22 PO; +LISI10TA4 PO; -LISI20TA33 PO; -VIAG100T PO; -VITA250T4 PO; -ZINC220CA PO
--- OUTSIDE RECORDS SUMMARY | 2020-04-21 16:23 | CCD | Continuity of Care Document ---
Author Author Jose [facility]NA [facility] Organization Unknown Address [address] [place] [id number] Phone [phone] Care Team Providers Care Solutions Specialist Name Role Phone Damian Matson M.D. AUTM [phone] Robert Alvarez M.D. AUTM [phone] Leroy Triana M.D. AUTM [phone] [facility] Direct-Pat AUTM Unavailable Problems Active Problems Provider Date Preoperative cardiovascular examination Onset: 10/29/2017 Dietary management surveillance Onset: 0 06/11/2017 Mixed hyperlipidemia Onset: 06/11/2017 Patient post percutaneous transluminal coronary angioplasty Onset: 06/11/2017 Dizziness and giddiness Onset: 7 Iron deficiency anemia Onset: 07/28/2016 Precordial pain Onset: 04/27/2016 Transient visual loss Onset: 03/15/2016 Body mass index 40+ - severely obese Ons et: 01/07/2016 History of coronary artery bypass grafting Onset: 01/07/2016 Supraventricular premature beats Onset: 01/07/2016 Obesity Onset: 11/23/2015 Edema Onset: 11/23/2015 Essential hypertension Onset: 11/23/2015 Palpitations Onset: 11/23/2015 Dyspnea Onset: 11/23/2015 Electrocardiogram abnormal Onset: 2015 Impending infarction Onset: 11/23/2015 Disorder of abdominal wall Onset: 2017 Cardiovascular stress test abnormal Onse t: 11/23/2015 Chest pain Onset: 11/23/2015 Coronary arteriosclerosis in [place] artery Onset: 11/25/2015 Hypertensive disorder Onset: 11/25/2015 Irreducible incisional hernia Onset: Morbid obesity Onset: 11/13/2016 Pericardial effusion Onset: 12/08/2015 Pulmonary embolism Onset: 12/06/2015 Type 2 diabetes mellitus without complication Onset: 11/23/2015 Obstructed incisional ventral hernia Ons et: 08/31/2017 Wound dehiscence Onset: 01/31/2016 Urinary tract infectious disease Maksim Benitez MD Onse t: 05/16/2018 Ureteric stone Maksim Benitez MD Onset: 05/16/2018 Left upper quadrant pain Onset: 08/14/19 19 Coronary atherosclerosis Onset: 11/25/19 16 Patient encounter status Onset: 06/21/19 19 Note: Overview: Added automatically from request for surgery [id number] Social History Type Date Description Comments Sex Unknown Tobacco Use Start: Unknown End: Unknown Former Cigarette Smo ker 2ppd x 15 years Smoking Status Reviewed: 03/02/20 Former Cigarette Smoker 2ppd x 15 years ETOH Use Patient denies alcohol use Allergies, Adverse Reactions, Alerts Active Allergies Reaction Severity Comments Date Penicillin 11/22/2015 Penicillins 11/22/2017 NSAIDS Other (See Comments) 020 Medications Active Medications SIG Qnty Indications Ordering Provide r Date Bactrim DS 800-160mg Tablets 1 by mouth twice a day 14tabs Sarthak Johnson MD 03/08/2020 Oxycodone-Acetaminophen 5-325mg Ta blets take 1-2 tablets by mouth every 6 (six) hours as needed for pain max daily amount: 6 tablets 20tabs N20.1 Maksim Benitez MD 019 Docusate Sodium 100mg Capsules Take 1 capsule (100 mg total) by mouth 2 (two) times a day 60caps Unknown 11/10/2017 Atorvastatin Calcium 80mg Tablets 1 by mouth every night at bedtime 30tabs I25.10 Cayetano Knight M.D . 06/14/[address] 1 by mouth every day Dereck Velasquez M.D. 01/22/2017 Metoprolol Tartrate 25mg Tablets 1 by mouth twice a day 180tabs R42 Unknown 12/05/2016 Vitamin B-12 500mcg Tablets 1 by mouth every day Unknown 12/04/2016 Amitriptyline HCL 25mg Tablets 1 by mouth every day at bedtime as needed Unknown 0 07/27/2016 Viagra 50mg Tablets 1 by mouth as needed Unknown 07/27/2016 Nitrostat 0.4mg Tablets Sub 1 sl every 5min x3 as needed for chest pain 30tabs I25.10 Leroy Triana M.D. 02/09/[address] 1 by mouth every day Robert Alvarez M.D. 11/22/2015 Allopurinol 300mg Tablets 1 by mouth every day Robert Alvarez M.D. 11/22/2015 Pregabalin 150mg Capsules Take 150 mg by mouth 2 (two) times a day Unknown Acetaminophen 325mg Tablets Take 650 mg by mouth every 6 (six) hours as needed for pain Unk nown Oyster Shell Calcium/D [id number] Tablets Take 3 tablets by mouth 2 (two) times a day Unknown Sildenafil Citrate 50mg Tablets Take 50 mg by mouth daily as needed for erectile dysfunction Unknown Tamsulosin HCL 0.4mg Capsules Take 1 Capsule By Mouth Once Daily 30 Minutes After The Same Meal Each Day Unknown Joint Health Tablets Unknown Stool Softener 100mg Capsules 1 by mouth every day Unknown Lyrica 150mg Capsules 1 by mouth three times a day Unknown Zofran 4mg Tablets prn Unknown Nystatin [id number] Powder Apply 1 application topically 2 (two) times a day Unknow n Duloxetine HCL 60mg Caps DR Hanna Take 60 mg by mouth daily Unknown Calcium + D3 Unknown Multi Vitamin Unknown Co Q-10 Unknown Immunizations Description No Information Available Vital Signs Date Vital Result Comment 02/25/2020 9:31am Height 67.99 inches 5'7.99" Weight 288.00 lb Weight 130.636 kg BMI (Body Mass Index) 43.79 kg/m2 02/25/2020 1:00pm Body Temperature 98.1 F Results Test Acquired Date Facility Test Result H/L Range Note 230 Ua Routine 03/08/2020 [facility] REF TO DR ADDRESS ON ORDER FOR (315)- - Ua Glucose Negative Ua Protein Trace Ua Nitrite Positive Ua Leuko Small Ua Blood Small Ua Color Not Entered Ua Ketones Negative Ua Clarity Not Entered Ua Specific [place] 1.015 1.003-1.030 Ua PH 5.5 5.0-7.5 Ua Bilirubin Negative Ua Urobilinogen 0.2 E.U./dL 0.0-1.0 Poct glucose 02/25/2020 N2N/CCD Import Glucose, Poc 140 mg/dL High 70 - 99 1 Stone Analysis 02/25/[address] [address] [phone] Composition See Note 2 Mass 166 mg Calculi Number 1 Calculi Size > 9 3 Calculi Description See Note 4 Poc Nova Glu 02/25/[address] [address] [phone] Poc Nova Glu 140 mg/dL High (70-99) 5 230 Ua Routine 02/02/2020 [facility] REF TO ADDRESS ON ORDER FOR (517)- - Ua Glucose Negative Ua Protein Negative Ua Nitrite Negative Ua Leuko Small Ua Blood Moderate Ua Color Not Entered Ua Ketones Negative Ua Clarity Not Entered Ua Specific [place] 1.015 1.003-1.030 Ua PH 5.5 5.0-7.5 Ua Bilirubin Negative Ua Urobilinogen 0.2 E.U./dL 0.0-1.0 CBC Without Diff 01/25/2020 [facility] [address] [place] [address] [phone] WBC 10.1 10*3/uL (4.1-11.0) RBC 3.88 10*6/uL Low (4.60-6.10) HGB 12.6 g/dL Low (13.5-18.0) HCT 37.6 % Low (41.0-53.0) MCV 96.8 fL High (80.0-95.0) MCH 32.3 pg High (27.0-32.0) MCHC 33.4 g/dL (32.0-36.0) RDW 14.2 % (10.5-14.5) PLT 192 10*3/uL (150-450) MPV 8.8 fL (7.1-10.7) Basic Metabolic Panel 01/25/2020 [facility] [address] [place] [address] [phone] Sodium 145 mmol/L (136-145) Potassium 3.8 mmol/L (3.6-5.2) Chloride 115 mmol/L High (100-108) Co2 23 mmol/L (22-31) Anion Gap 7 mmol/L (7-16) Urea Nitrogen 17 mg/dL (7-24) Creatinine 1.29 mg/dL (0.80-1.30) BUN/Creat Ratio 13.2 RATIO (10.0-20.0) Glucose 192 mg/dL High (70-99) Calcium 8.0 mg/dL Low (8.4-10.2) GFR 56 ml/min/1.73m2 Low (>59) GFR ( Amer) >60 ml/min/1.73m2 (>59) GFR Interpretation <SEE NOTE> 6 CBC Without Diff 01/24/2020 [facility] [address] [place] [address] [phone] WBC 11.8 10*3/uL High (4.1-11.0) RBC 4.04 10*6/uL Low (4.60-6.10) HGB 12.9 g/dL Low (13.5-18.0) HCT 39.2 % Low (41.0-53.0) MCV 97.1 fL High (80.0-95.0) MCH 31.8 pg (27.0-32.0) MCHC 32.8 g/dL (32.0-36.0) RDW 14.1 % (10.5-14.5) PLT 152 10*3/uL (150-450) MPV 9.0 fL (7.1-10.7) Basic Metabolic Panel 01/24/2020 [facility] [address] [place] [address] [phone] Sodium 141 mmol/L (136-145) Potassium 3.7 mmol/L (3.6-5.2) Chloride 112 mmol/L High (100-108) Co2 21 mmol/L Low (22-31) Anion Gap 8 mmol/L (7-16) Urea Nitrogen 19 mg/dL (7-24) Creatinine 1.44 mg/dL High (0.80-1.30) BUN/Creat Ratio 13.2 RATIO (10.0-20.0) Glucose 197 mg/dL High (70-99) Calcium 7.7 mg/dL Low (8.4-10.2) GFR 50 ml/min/1.73m2 Low (>59) GFR ( Amer) >60 ml/min/1.73m2 (>59) GFR Interpretation <SEE NOTE> 7 Laboratory test finding 01/23/[address] [address] [phone] Troponin I <0.05 ng/mL (<0.05) 8 Basic Metabolic Panel 01/23/[address] [address] [phone] Sodium 138 mmol/L (136-145) Potassium 3.6 mmol/L (3.6-5.2) Chloride 106 mmol/L (100-108) Co2 25 mmol/L (22-31) Anion Gap 7 mmol/L (7-16) Urea Nitrogen 20 mg/dL (7-24) Creatinine 1.56 mg/dL High (0.80-1.30) BUN/Creat Ratio 12.8 RATIO (10.0-20.0) Glucose 142 mg/dL High (70-99) Calcium 7.7 mg/dL Low (8.4-10.2) GFR 45 ml/min/1.73m2 Low (>59) GFR ( Amer) 55 ml/min/1.73m2 Low (>59) GFR Interpretation <SEE NOTE> 9 CBC Without Diff 01/23/[address] [address] [phone] WBC 14.4 10*3/uL High (4.1-11.0) RBC 3.93 10*6/uL Low (4.60-6.10) HGB 12.4 g/dL Low (13.5-18.0) HCT 37.8 % Low (41.0-53.0) MCV 96.3 fL High (80.0-95.0) MCH 31.6 pg (27.0-32.0) MCHC 32.8 g/dL (32.0-36.0) RDW 14.4 % (10.5-14.5) PLT 161 10*3/uL (150-450) MPV 9.1 fL (7.1-10.7) CBC Without Diff 01/21/2020 [facility] [address] [place] [address] [phone] WBC 10.5 10*3/uL (4.1-11.0) RBC 4.04 10*6/uL Low (4.60-6.10) HGB 12.9 g/dL Low (13.5-18.0) HCT 39.0 % Low (41.0-53.0) MCV 96.6 fL High (80.0-95.0) MCH 31.9 pg (27.0-32.0) MCHC 33.0 g/dL (32.0-36.0) RDW 14.3 % (10.5-14.5) PLT 146 10*3/uL Low (150-450) MPV 8.9 fL (7.1-10.7) Basic Metabolic Panel 01/21/2020 [facility] [address] [place] [address] [phone] Sodium 142 mmol/L (136-145) Potassium 4.0 mmol/L (3.6-5.2) Chloride 110 mmol/L High (100-108) Co2 26 mmol/L (22-31) Anion Gap 6 mmol/L Low (7-16) Urea Nitrogen 22 mg/dL (7-24) Creatinine 1.36 mg/dL High (0.80-1.30) BUN/Creat Ratio 16.2 RATIO (10.0-20.0) Glucose 127 mg/dL High (70-99) Calcium 7.6 mg/dL Low (8.4-10.2) GFR 53 ml/min/1.73m2 Low (>59) GFR ( Amer) >60 ml/min/1.73m2 (>59) GFR Interpretation <SEE NOTE> 10 230 Ua Routine 01/20/2020 [facility] REF TO DR ADDRESS ON ORDER FOR (504)- - Ua Glucose Negative Ua Protein Negative Ua Nitrite Positive Ua Leuko Small Ua Blood Moderate Ua Color Not Entered Ua Ketones Negative Ua Clarity Not Entered Ua Specific [place] 1.020 1.003-1.030 Ua PH 5.5 5.0-7.5 Ua Bilirubin Negative Ua Urobilinogen 0.2 E.U./dL 0.0-1.0 Laboratory test finding 01/20/2020 [facility] [place] [place] [address] [phone] Urine Culture SPECIMEN DESCRIP <SEE NOTE> 11, 12 Coronavirus By PCR 01/20/[address] [address] [phone] Specimen Description NASOPHARYNGEAL Covid19 Result NOT DETECTED (Ndet) 13 Comment THE U.[place]. FDA HAS <SEE NOTE> 14 First Test UNKNOWN [facility]ed In [employer] UNKNOWN Symptomatic UNKNOWN Date Of Sympt Onset NOT APPLICABLE Hospitalized UNKNOWN Icu UNKNOWN Congregate Care Set UNKNOWN NO Laboratory test finding 01/20/[address] [address] [phone] Urine Culture SPECIMEN DESCRIP <SEE NOTE> 15 Urine Micro Only 01/20/[address] [address] [phone] Urine WBC * 50-100 [HPF] (0-5) Urine RBC * 25-50 [HPF] (0-2) Epithelial Cells 2+ [HPF] Bacteria 1+ [HPF] Urinalysis RFX 01/20/[address] [address] [phone] Color YELLOW Appearance CLOUDY Spec Grav Urine 1.017 (1.003-1.030) PH Urine 5.5 (5.0-7.5) Leuk Esterase 2+ Abnormal (Neg) Nitrite Urine POSITIVE Abnormal (Neg) Protein Urine NEGATIVE (Neg) Glucose Urine NEGATIVE (Neg) Ketone Urine NEGATIVE (Neg) Urobilinogen 1.0 mg/dL (0-1.0) Bilirubin Urine NEGATIVE (Neg) Blood/HGB Urine 3+ Abnormal (Neg) Basic Metabolic Panel 01/20/[address] [address] [phone] Sodium 142 mmol/L (136-145) Potassium 4.7 mmol/L (3.6-5.2) Chloride 108 mmol/L (100-108) Co2 26 mmol/L (22-31) Anion Gap 8 mmol/L (7-16) Urea Nitrogen 25 mg/dL High (7-24) Creatinine 1.50 mg/dL High (0.80-1.30) BUN/Creat Ratio 16.7 RATIO (10.0-20.0) Glucose 147 mg/dL High (70-99) Calcium 8.6 mg/dL (8.4-10.2) GFR 47 ml/min/1.73m2 Low (>59) GFR ( Amer) 57 ml/min/1.73m2 Low (>59) GFR Interpretation <SEE NOTE> 16 CBC Without Diff 01/20/2020 [facility] [address] [place] [address] [phone] WBC 15.5 10*3/uL High (4.1-11.0) RBC 4.47 10*6/uL Low (4.60-6.10) HGB 14.3 g/dL (13.5-18.0) HCT 43.4 % (41.0-53.0) MCV 97.1 fL High (80.0-95.0) MCH 32.0 pg (27.0-32.0) MCHC 32.9 g/dL (32.0-36.0) RDW 14.5 % (10.5-14.5) PLT 172 10*3/uL (150-450) MPV 9.3 fL (7.1-10.7) 1 PERFORMED BY [facility] 2 Calculi composed primarily of: 90% calcium oxalate monohydrate, and 10% calcium oxalate dihydrate. INTERPRETIVE INFORMATION: Calculi (Stone) analysis Calculi are the products of physiological processes that yield crystalline compounds in a matrix of biological compounds and blood. Matrix components are not reported. The clinically significant crystalline components identified in calculi specimens are reported. Gross description may not be consistent with composition determined by FTIR analysis. Performed By: [facility] [address] [place] [address] Surety Bond Agent: Ny Mckeon MD 3 Unit: mm 4 Specimen consists of a single, large, brown, irregular calculus. 5 PERFORMED BY [facility] 6 -- NORMAL KIDNEY FUNCTION OR MILD DISEASE - GFR >OR= 60 CHRONIC KIDNEY DISEASE - GFR 15 - 59 RENAL FAILURE - GFR <15 -- Est. GFR calculation based on the MDRD study equation, which assumes a steady state for creatinine. Est. GFR should not be used for medication dosing. 7 -- NORMAL KIDNEY FUNCTION OR MILD DISEASE - GFR >OR= 60 CHRONIC KIDNEY DISEASE - GFR 15 - 59 RENAL FAILURE - GFR <15 -- Est. GFR calculation based on the MDRD study equation, which assumes a steady state for creatinine. Est. GFR should not be used for medication dosing. 8 Less than 0.05: Myocardial i njury unlikely Greater than or equal to 0.05: Highly suggestive of myocardial injury Correlation with rise and/or fall of serial troponins, clinical symptoms and ECG changes is necessary. 9 -- NORMAL KIDNEY FUNCTION OR MILD DISEASE - GFR >OR= 60 CHRONIC KIDNEY DISEASE - GFR 15 - 59 RENAL FAILURE - GFR <15 -- Est. GFR calculation based on the MDRD study equation, which assumes a steady state for creatinine. Est. GFR should not be used for medication dosing. 10 -- NORMAL KIDNEY FUNCTION OR MILD DISEASE - GFR >OR= 60 CHRONIC KIDNEY DISEASE - GFR 15 - 59 RENAL FAILURE - GFR <15 -- Est. GFR calculation based on the MDRD study equation, which assumes a steady state for creatinine. Est. GFR should not be used for medication dosing. 11 SPECIMEN DESCRIPTION MIDSTREAM URINE,CLEAN CATCH CULTURE RESULTS >100,000 CFU/ML STAPHYLOCOCCUS, COAGULASE NEGATIVE REPORT STATUS FINAL 01/22/2020 ORGANISM STAPHYLOCOCCUS, COAGULASE NEGATIVE METHOD KERON NITROFURANTOIN 64 INTERMEDIATE LEVOFLOXACIN >=8 RESISTANT LINEZOLID 2 SUSCEPTIBLE OXACILLIN >=4 RESISTANT OXACILLIN PREDICTS RESULTS FOR PENICILLINASE RESISTANT PENICILLINS, BETA LACTAM/BETALACTAMASE INHIBITOR COMBINATIONS,CEPHALOSPORINS (WITH THE EXCEPTION OF CEPHALOSPORINS WITH ANTI MRSA ACTIVITY), AND CARBAPENEMS PER CLSI STANDARDS. TETRACYCLINE >=16 RESISTANT ISOLATES RESISTANT TO TETRACYCLINE MAY BE SUSCEPTIBLE TO DOXYCYCLINE AND MINOCYCLINE. TESTING WILL BE PERFORMED UPON REQUEST. VANCOMYCIN 1 SUSCEPTIBLE TRIMETH/SULFA RESISTANT CIPROFLOXACIN >=8 RESISTANT 12 01/22/20 (Thr Jan 21) 04:27 PM SOLEDAD WALLER Admitted to [facility] for IV antibiotics 13 THIS ASSAY AMPLIFIES AND DET ECTS THE TARGET RNA USING REAL-TIME PCR. NEGATIVE 2019_NCOV RT-PCR RESULTS DO NOT PRECLUDE 2019_NCOV INFECTION AND SHOULD NOT BE USED THE SOLE BASIS FOR PATIENT MANAGEMENT DECISIONS. 14 THE U.[place] FDA HAS MADE THIS T EST AVAILABLE UNDER AN EMERGENCY USE AUTHORIZATION (EUA) FOR THE DETECTION AND/OR DIAGNOSIS OF THE VIRUS THAT CAUSES COVID-19. EMAILED TO [facility] AT [address] [id number] CD [address]. 15 SPECIMEN DESCRIPTION MIDSTREAM URINE,CLEAN CATCH CULTURE RESULTS >100,000 CFU/ML STAPHYLOCOCCUS, COAGULASE NEGATIVE KERON NUMBERS CAN NOT BE DIRECTLY COMPARED ACROSS DIFFERENT ANTIBIOTICS. KERON VALUES ARE OCCASIONALLY USEFUL. SUSCEPTIBLE OR RESISTANT INTERPRETATIONS ALONE ARE SUFFICIENT FOR ANTIBIOTIC SELECTION IN THE GREAT MAJORITY OF INFECTIONS. REPORT STATUS FINAL 01/22/2020 ORGANISM STAPHYLOCOCCUS, COAGULASE NEGATIVE METHOD KERON NITROFURANTOIN 64 INTERMEDIATE LEVOFLOXACIN >=8 RESISTANT LINEZOLID 2 SUSCEPTIBLE OXACILLIN >=4 RESISTANT OXACILLIN PREDICTS RESULTS FOR PENICILLINASE RESISTANT PENICILLINS, BETA LACTAM/BETALACTAMASE INHIBITOR COMBINATIONS,CEPHALOSPORINS (WITH THE EXCEPTION OF CEPHALOSPORINS WITH ANTI MRSA ACTIVITY), AND CARBAPENEMS PER CLSI STANDARDS. TETRACYCLINE >=16 RESISTANT ISOLATES RESISTANT TO TETRACYCLINE MAY BE SUSCEPTIBLE TO DOXYCYCLINE AND MINOCYCLINE. TESTING WILL BE PERFORMED UPON REQUEST. VANCOMYCIN 2 SUSCEPTIBLE TRIMETH/SULFA 152 RESISTANT CIPROFLOXACIN >=8 RESISTANT 16 -- NORMAL KIDNEY FUNCTION OR MILD DISEASE - GFR >OR= 60 CHRONIC KIDNEY DISEASE - GFR 15 - 59 RENAL FAILURE - GFR <15 -- Est. GFR calculation based on the MDRD study equation, which assumes a steady state for creatinine. Est. GFR should not be used for medication dosing. Procedures Date Code Description Status 03/08/2020 49862 Cystourethroscopy Simple With Re moval Foreign Body Or Stent Completed 02/25/2020 35706 Cystourethroscopy, With Removal Or Manipulation Of Calculus Completed 02/25/2020 01310 Cystourethroscopy, With Insertio n Of Indwelling Ureteral Stent Completed 01/20/2020 04007 Retrograde,Pyelogram,Urography I nterpretation Completed 01/20/[address] Abdomen/Pelvis Wo Contrast Co mpleted 01/20/2020 30807 Cystourethroscopy, With Insertio n Of Indwelling Ureteral Stent Completed 03/26/2012 73780335 Colonoscopy Completed Medical Devices Active Inactive Description Device Identifier Assigning Authority 11/05/2017 Abdominal hernia surgical mesh c omposite-polymer ()[id number] [facility] 11/05/2017 Abdominal hernia surgical mesh c omposite-polymer ()[id number] [facility] Encounters Type Date Location Provider Dx Diagnosis Office Visit 02/02/2020 12:40p [facility] Sarthak Johnson MD N20.1 Calculus of ureter Assessments Date Code Description Provider 03/08/2020 N20.1 Calculus of ureter Sarthak swanson MD 03/08/2020 Z12.5 Encounter for screening for gavin gnant neoplasm of prostate Sarthak Johnson MD 02/25/2020 N20.1 Calculus of ureter Sarthak swanson MD 02/02/2020 N20.1 Calculus of ureter Sarthak swanson MD 01/23/2020 N39.0 Urinary tract infection, site no t specified Linnette Aldana,RESEARCH CHEMIST 01/23/2020 R50.9 Fever, unspecified Linnette Monika,FN P 01/21/2020 N20.1 Calculus of ureter Linnette Aldana,FN P 01/21/2020 N39.0 Urinary tract infection, site no t specified Linnette Monika,RESEARCH CHEMIST 01/20/2020 N13.2 Hydronephrosis with renal and ur eteral calculous obstruction Sarthak Johnson MD 01/20/2020 N20.0 Calculus of kidney Sarthak swanson MD 01/20/2020 N20.1 Calculus of ureter Raji Moreira MD 01/20/2020 N13.2 Hydronephrosis with renal and ur eteral calculous obstruction Soledad Waller NP Plan of Treatment Future Appointment(s):* 03/08/2021 1:00 pm - Soledad Waller NP at [facility]/ [facility] 03/08/2020 - Sarthak Johnson MD* N20.1 Calculus of ureter* New Xrays:* KUB, Scheduled: 03/08/21 * Z12.5 Encounter for screening for malignant neoplasm of prostate* New Labs:* PSA Total, Scheduled: 03/01/21 * All * New Medication:* Bactrim DS 800-160 mg - 1 by mouth twice a day Functional Status Description No Information Available Mental Status Description No Information Available Referrals Refer to Reason for Referral Status Appt Date Sarthak Johnson M.D. Per [facility]: [facility] CoPay :$300 - [facility] SURGICAL COPAY 300 SURG Final CoPay For This Member= $300.0 Per [facility]: CPT 01013,19840,39792,52 353,75927,20668,56152- authorization required. Submitted authorization for above codes. The request for services detailed below have been approved Reference Number: [id number] Authorization Number: [id number] Valid 02/25/20-04/25/20 02/17/20 ab Created [facility] [address] [place] [id number] [phone] Sarthak Johnson M.D. Per [facility] online CPT: 05698 Description: CT ABDOMEN & PELVIS W/O Auth: [id number] Review Date: 01/20/2020 9:16:13 AM Expiration Date: 03/05/2020 Status: Your case has been Approved. 01/20/2020 MO Created [facility] [address] [place] [id number] [phone]
--- OUTSIDE RECORDS SUMMARY | 2020-04-21 16:23 | CCD | Continuity of Care Document ---
Author Author Jose ALDANA [facility] Organization Unknown Address [address] [place] [address] Phone [phone] Care Team Providers Care Hydrometallurgical Engineer Name Role Phone Damian Mtason M.D. AUTM [phone] Robert Alvarez M.D. AUTM [phone] Leroy Triana M.D. AUTM [phone] [facility] Direct-Pat AUTM Unavailable Problems Active Problems Provider [...] Chest pain Onset: 11/23/2015 Coronary arteriosclerosis in [place] artery Onset: 11/25/2015 Hypertensive disorder Onset: 11/25/2015 [...] Overview: Added automatically from request for surgery [id number] Social History Type Date Description Comments Sex [...] for pain Unk nown Oyster Shell Calcium/D [id number] Tablets Take 3 tablets by mouth 2 [...] Unknown Zofran 4mg Tablets prn Unknown Nystatin 054836Nild/GM Powder Apply 1 application topically 2 (two) [...] Negative Ua Clarity Not Entered Ua Specific [place] 1.015 1.003-1.030 Ua PH 5.5 5.0-7.5 Ua Bilirubin Negative Ua Urobilinogen 0.2 E.U./dL 0.0-1.0 Poct glucose 02/25/2020 N2N/CCD Import Glucose, Poc 140 mg/dL High 70 - 99 1 Stone Analysis 02/25/[address] [address] [phone] Composition See Note 2 Mass 166 mg Calculi Number 1 Calculi Size > 9 3 Calculi Description See Note 4 Poc Nova Glu 02/25/[address] [address] [phone] Poc Nova Glu 140 mg/dL High (70-99) 5 230 Ua Routine 02/02/2020 [facility] REF TO ADDRESS ON ORDER FOR (357)- - Ua Glucose Negative Ua Protein Negative Ua Nitrite Negative Ua Leuko Small Ua Blood Moderate Ua Color Not Entered Ua Ketones Negative Ua Clarity Not Entered Ua Specific [place] 1.015 1.003-1.030 Ua PH 5.5 5.0-7.5 Ua Bilirubin Negative Ua Urobilinogen 0.2 E.U./dL 0.0-1.0 CBC Without Diff 01/25/2020 [facility] [address] [place] [address] [phone] WBC 10.1 10*3/uL (4.1-11.0) RBC 3.88 10*6/uL Low (4.60-6.10) HGB 12.6 g/dL Low (13.5-18.0) HCT 37.6 % Low (41.0-53.0) MCV 96.8 fL High (80.0-95.0) MCH 32.3 pg High (27.0-32.0) MCHC 33.4 g/dL (32.0-36.0) RDW 14.2 % (10.5-14.5) PLT 192 10*3/uL (150-450) MPV 8.8 fL (7.1-10.7) Basic Metabolic Panel 01/25/2020 [facility] [address] [place] [address] [phone] Sodium 145 mmol/L (136-145) Potassium 3.8 mmol/L [...] <SEE NOTE> 6 CBC Without Diff 01/24/2020 [facility] [address] [place] [address] [phone] WBC 11.8 10*3/uL High (4.1-11.0) RBC 4.04 10*6/uL Low (4.60-6.10) HGB 12.9 g/dL Low (13.5-18.0) HCT 39.2 % Low (41.0-53.0) MCV 97.1 fL High (80.0-95.0) MCH 31.8 pg (27.0-32.0) MCHC 32.8 g/dL (32.0-36.0) RDW 14.1 % (10.5-14.5) PLT 152 10*3/uL (150-450) MPV 9.0 fL (7.1-10.7) Basic Metabolic Panel 01/24/2020 [facility] [address] [place] [address] [phone] Sodium 141 mmol/L (136-145) Potassium 3.7 mmol/L [...] <SEE NOTE> 7 Laboratory test finding 01/23/[address] [address] [phone] Troponin I <0.05 ng/mL (<0.05) 8 Basic Metabolic Panel 01/23/[address] [address] [phone] Sodium 138 mmol/L (136-145) Potassium 3.6 mmol/L [...] <SEE NOTE> 9 CBC Without Diff 01/23/[address] [address] [phone] WBC 14.4 10*3/uL High (4.1-11.0) RBC 3.93 10*6/uL Low (4.60-6.10) HGB 12.4 g/dL Low (13.5-18.0) HCT 37.8 % Low (41.0-53.0) MCV 96.3 fL High (80.0-95.0) MCH 31.6 pg (27.0-32.0) MCHC 32.8 g/dL (32.0-36.0) RDW 14.4 % (10.5-14.5) PLT 161 10*3/uL (150-450) MPV 9.1 fL (7.1-10.7) CBC Without Diff 01/21/2020 [facility] [address] [place] [address] [phone] WBC 10.5 10*3/uL (4.1-11.0) RBC 4.04 10*6/uL Low (4.60-6.10) HGB 12.9 g/dL Low (13.5-18.0) HCT 39.0 % Low (41.0-53.0) MCV 96.6 fL High (80.0-95.0) MCH 31.9 pg (27.0-32.0) MCHC 33.0 g/dL (32.0-36.0) RDW 14.3 % (10.5-14.5) PLT 146 10*3/uL Low (150-450) MPV 8.9 fL (7.1-10.7) Basic Metabolic Panel 01/21/2020 [facility] [address] [place] [address] [phone] Sodium 142 mmol/L (136-145) Potassium 4.0 mmol/L [...] REF TO DR ADDRESS ON ORDER FOR (549)- - Ua Glucose Negative Ua Protein Negative Ua Nitrite Positive Ua Leuko Small Ua Blood Moderate Ua Color Not Entered Ua Ketones Negative Ua Clarity Not Entered Ua Specific [place] 1.020 1.003-1.030 Ua PH 5.5 5.0-7.5 Ua Bilirubin Negative Ua Urobilinogen 0.2 E.U./dL 0.0-1.0 Laboratory test finding 01/20/2020 [facility] [address] [phone] Urine Culture SPECIMEN DESCRIP <SEE NOTE> 11, 12 Coronavirus By PCR 01/20/[address] [address] [phone] Specimen Description NASOPHARYNGEAL Covid19 Result NOT DETECTED (Ndet) 13 Comment THE U.S. FDA HAS <SEE NOTE> 14 First Test UNKNOWN [facility]ed [facility] [employer] UNKNOWN Symptomatic UNKNOWN Date Of Sympt Onset NOT APPLICABLE Hospitalized UNKNOWN Icu UNKNOWN Congregate Care Set UNKNOWN NO Laboratory test finding 01/20/[address] [address] [phone] Urine Culture SPECIMEN DESCRIP <SEE NOTE> 15 Urine Micro Only 01/20/[address] [address] [phone] Urine WBC * 50-100 [HPF] (0-5) Urine RBC * 25-50 [HPF] (0-2) Epithelial Cells 2+ [HPF] Bacteria 1+ [HPF] Urinalysis RFX 01/20/[address] [address] [phone] Color YELLOW Appearance CLOUDY Spec Grav Urine 1.017 (1.003-1.030) PH Urine 5.5 (5.0-7.5) Leuk Esterase 2+ Abnormal (Neg) Nitrite Urine POSITIVE Abnormal (Neg) Protein Urine NEGATIVE (Neg) Glucose Urine NEGATIVE (Neg) Ketone Urine NEGATIVE (Neg) Urobilinogen 1.0 mg/dL (0-1.0) Bilirubin Urine NEGATIVE (Neg) Blood/HGB Urine 3+ Abnormal (Neg) Basic Metabolic Panel 01/20/[address] [address] [phone] Sodium 142 mmol/L (136-145) Potassium 4.7 mmol/L [...] 01/20/2020 [facility] [address] [place] [address] [phone] WBC 15.5 10*3/uL High (4.1-11.0) RBC 4.47 10*6/uL Low (4.60-6.10) HGB 14.3 g/dL (13.5-18.0) HCT 43.4 % (41.0-53.0) MCV 97.1 fL High (80.0-95.0) MCH 32.0 pg (27.0-32.0) MCHC 32.9 g/dL (32.0-36.0) RDW 14.5 % (10.5-14.5) PLT 172 10*3/uL (150-450) MPV 9.3 fL (7.1-10.7) 1 PERFORMED BY [facility] 2 Calculi composed primarily of: [...] composition determined by FTIR analysis. Performed By: [facility] [address] [place] [address] Department Manager: Ny Mckeon MD 3 Unit: mm 4 Specimen consists of a single, large, brown, irregular calculus. 5 PERFORMED BY [facility] 6 -- NORMAL KIDNEY FUNCTION [...] 21) 04:27 PM SOLEDAD WALLER Admitted to [facility] for IV antibiotics 13 THIS ASSAY AMPLIFIES [...] THE VIRUS THAT CAUSES COVID-19. EMAILED TO [facility] AT 9227 XH [id number] JC 00667. 15 SPECIMEN DESCRIPTION MIDSTREAM URINE,CLEAN CATCH CULTURE [...] dosing. Procedures Date Code Description Status 03/08/2020 92316 Cystourethroscopy Simple With Re moval Foreign Body Or Stent Completed 02/25/2020 92363 Cystourethroscopy, With Removal Or Manipulation Of Calculus Completed 02/25/2020 58332 Cystourethroscopy, With Insertio n Of Indwelling Ureteral Stent Completed 01/20/2020 [address]2844 Retrograde,Pyelogram,Urography I nterpretation Completed 01/20/[address] Abdomen/Pelvis Wo Contrast Co mpleted 01/20/2020 96804 Cystourethroscopy, With Insertio n Of Indwelling Ureteral Stent Completed 03/26/2012 [id number] Colonoscopy Completed Medical Devices Active Inactive Description Device Identifier Assigning Authority 11/05/2017 Abdominal hernia surgical mesh c omposite-polymer ()[id number] [facility] 11/05/2017 Abdominal hernia surgical mesh c omposite-polymer ()[id number] [facility] Encounters Type Date Location Provider Dx Diagnosis Office Visit 02/02/2020 12:40p [facility] Sarthak Johnson MD N20.1 Calculus of ureter Assessments Date Code Description Provider 03/08/2020 N20.1 Calculus of ureter Sarthak swanson MD 03/08/2020 Z12.5 Encounter for screening for gavin gnant neoplasm of prostate Sarthak Johnson MD 02/25/2020 N20.1 Calculus of ureter Sarthak swanson MD 02/02/2020 N20.1 Calculus of ureter Sarthak swanson MD 01/23/2020 N39.0 Urinary tract infection, site no t specified Linnette Aldana,[employer] 01/23/2020 R50.9 Fever, unspecified Linnette Monika,FN P 01/21/2020 N20.1 Calculus of ureter Linnette Aldana,FN P 01/21/2020 N39.0 Urinary tract infection, site no t specified Linnette Monika,[employer] 01/20/2020 N13.2 Hydronephrosis with renal and ur eteral calculous obstruction Sarthak Johnson MD 01/20/2020 N20.0 Calculus of kidney Sarthak swanson MD 01/20/2020 N20.1 Calculus of ureter Raji Moreira MD 01/20/2020 N13.2 Hydronephrosis with renal and ur eteral calculous obstruction Soledad Waller NP Plan of Treatment Future Appointment(s):* 03/08/2021 1:00 pm - Soledad Waller NP at [facility] 03/08/2020 - Sarthak Johnson [...] Status Appt Date Sarthak Johnson M.D. Per [employer] Online: Hospit al Outpatient In Network CoPay :$300 - [facility] SURGICAL COPAY 300 SURG Final CoPay For This Member= $300.0 Per [employer] Online: CPT 33936,58733,04803,52 353,33845,48023,41347- authorization required. Submitted authorization for above codes. The request for services detailed below have been approved Reference Number: [id number] Authorization Number: [id number] Valid 02/25/20-04/25/20 02/17/20 ab Created [facility] Urology [address] [place] [phone] Sarthak Johnson M.D. Per [facility]/[employer] online CPT: 86098 Description: CT ABDOMEN & PELVIS W/O Auth: [id number] Review Date: 01/20/2020 9:16:13 AM Expiration Date: 03/05/2020 Status: Your case has been Approved. 01/20/2020 MO Created [facility] Urology [address] [place] [phone]
--- OUTSIDE RECORDS SUMMARY | 2020-04-21 16:24 | CCD ---
Continuity of Care Document (CCD) Created on: 04/09/2020 [employer] External Reference #: [id number] : [id number] Sex: Male Author Author Jose ALDANA [facility] Organization Unknown Address [address] [place] [address] Phone [phone] Care Team Providers Care Respiratory Care Faculty Name Role Phone Damian Matson M.D. AUTM [phone] Robert Alvarez M.D. AUTM [phone] Leroy Triana M.D. AUTM [phone] [facility] Direct-Pat AUTM Unavailable Problems [...] Chest pain Onset: 11/23/2015 Coronary arteriosclerosis in [place] artery Onset: 11/25/2015 Hypertensive disorder Onset: 11/25/2015 [...] Overview: Added automatically from request for surgery [id number] Social History Type Date Description Comments Sex [...] for pain Unk nown Oyster Shell Calcium/D [id number]-Zdns Tablets Take 3 tablets by mouth 2 [...] Unknown Zofran 4mg Tablets prn Unknown Nystatin 642298Mfso/GM Powder Apply 1 application topically 2 (two) [...] Negative Ua Clarity Not Entered Ua Specific [place] 1.015 1.003-1.030 Ua PH 5.5 5.0-7.5 Ua Bilirubin Negative Ua Urobilinogen 0.2 E.U./dL 0.0-1.0 Poct glucose 02/25/2020 N2N/CCD Import Glucose, Poc 140 mg/dL High 70 - 99 1 Stone Analysis 02/25/[address] [address] [phone] Composition See Note 2 Mass 166 mg Calculi Number 1 Calculi Size > 9 3 Calculi Description See Note 4 Poc Nova Glu 02/25/[address] [address] [phone] Poc Nova Glu 140 mg/dL High (70-99) 5 230 Ua Routine 02/02/2020 [facility] REF TO ADDRESS ON ORDER FOR (359)- - Ua Glucose Negative Ua Protein Negative Ua Nitrite Negative Ua Leuko Small Ua Blood Moderate Ua Color Not Entered Ua Ketones Negative Ua Clarity Not Entered Ua Specific [place] 1.015 1.003-1.030 Ua PH 5.5 5.0-7.5 Ua Bilirubin Negative Ua Urobilinogen 0.2 E.U./dL 0.0-1.0 CBC Without Diff 01/25/2020 [facility] [address] [place] [address] [phone] WBC 10.1 10*3/uL (4.1-11.0) RBC 3.88 10*6/uL Low (4.60-6.10) HGB 12.6 g/dL Low (13.5-18.0) HCT 37.6 % Low (41.0-53.0) MCV 96.8 fL High (80.0-95.0) MCH 32.3 pg High (27.0-32.0) MCHC 33.4 g/dL (32.0-36.0) RDW 14.2 % (10.5-14.5) PLT 192 10*3/uL (150-450) MPV 8.8 fL (7.1-10.7) Basic Metabolic Panel 01/25/2020 [facility] [address] [place] [address] [phone] Sodium 145 mmol/L (136-145) Potassium 3.8 mmol/L [...] <SEE NOTE> 6 CBC Without Diff 01/24/2020 [facility] [address] [place] [address] [phone] WBC 11.8 10*3/uL High (4.1-11.0) RBC 4.04 10*6/uL Low (4.60-6.10) HGB 12.9 g/dL Low (13.5-18.0) HCT 39.2 % Low (41.0-53.0) MCV 97.1 fL High (80.0-95.0) MCH 31.8 pg (27.0-32.0) MCHC 32.8 g/dL (32.0-36.0) RDW 14.1 % (10.5-14.5) PLT 152 10*3/uL (150-450) MPV 9.0 fL (7.1-10.7) Basic Metabolic Panel 01/24/2020 [facility] [address] [place] [address] [phone] Sodium 141 mmol/L (136-145) Potassium 3.7 mmol/L [...] <SEE NOTE> 7 Laboratory test finding 01/23/[address] [address] [phone] Troponin I <0.05 ng/mL (<0.05) 8 Basic Metabolic Panel 01/23/[address] [address] [phone] Sodium 138 mmol/L (136-145) Potassium 3.6 mmol/L [...] <SEE NOTE> 9 CBC Without Diff 01/23/[address] [address] [phone] WBC 14.4 10*3/uL High (4.1-11.0) RBC 3.93 10*6/uL Low (4.60-6.10) HGB 12.4 g/dL Low (13.5-18.0) HCT 37.8 % Low (41.0-53.0) MCV 96.3 fL High (80.0-95.0) MCH 31.6 pg (27.0-32.0) MCHC 32.8 g/dL (32.0-36.0) RDW 14.4 % (10.5-14.5) PLT 161 10*3/uL (150-450) MPV 9.1 fL (7.1-10.7) CBC Without Diff 01/21/2020 [facility] [address] [place] [address] [phone] WBC 10.5 10*3/uL (4.1-11.0) RBC 4.04 10*6/uL Low (4.60-6.10) HGB 12.9 g/dL Low (13.5-18.0) HCT 39.0 % Low (41.0-53.0) MCV 96.6 fL High (80.0-95.0) MCH 31.9 pg (27.0-32.0) MCHC 33.0 g/dL (32.0-36.0) RDW 14.3 % (10.5-14.5) PLT 146 10*3/uL Low (150-450) MPV 8.9 fL (7.1-10.7) Basic Metabolic Panel 01/21/2020 [facility] [address] [place] [address] [phone] Sodium 142 mmol/L (136-145) Potassium 4.0 mmol/L [...] REF TO DR ADDRESS ON ORDER FOR (247)- - Ua Glucose Negative Ua Protein Negative Ua Nitrite Positive Ua Leuko Small Ua Blood Moderate Ua Color Not Entered Ua Ketones Negative Ua Clarity Not Entered Ua Specific [place] 1.020 1.003-1.030 Ua PH 5.5 5.0-7.5 Ua Bilirubin Negative Ua Urobilinogen 0.2 E.U./dL 0.0-1.0 Laboratory test finding 01/20/2020 [facility] [address] [phone] Urine Culture SPECIMEN DESCRIP <SEE NOTE> 11, 12 Coronavirus By PCR 01/20/[address] [address] [phone] Specimen Description NASOPHARYNGEAL Covid19 Result NOT DETECTED (Ndet) 13 Comment THE U.S. FDA HAS <SEE NOTE> 14 First Test UNKNOWN [facility] [employer] UNKNOWN Symptomatic UNKNOWN Date Of Sympt Onset NOT APPLICABLE Hospitalized UNKNOWN Icu UNKNOWN Congregate Care Set UNKNOWN NO Laboratory test finding 01/20/[address] [address] [phone] Urine Culture SPECIMEN DESCRIP <SEE NOTE> 15 Urine Micro Only 01/20/[address] [address] [phone] Urine WBC * 50-100 [HPF] (0-5) Urine RBC * 25-50 [HPF] (0-2) Epithelial Cells 2+ [HPF] Bacteria 1+ [HPF] Urinalysis RFX 01/20/[address] [address] [phone] Color YELLOW Appearance CLOUDY Spec Grav Urine 1.017 (1.003-1.030) PH Urine 5.5 (5.0-7.5) Leuk Esterase 2+ Abnormal (Neg) Nitrite Urine POSITIVE Abnormal (Neg) Protein Urine NEGATIVE (Neg) Glucose Urine NEGATIVE (Neg) Ketone Urine NEGATIVE (Neg) Urobilinogen 1.0 mg/dL (0-1.0) Bilirubin Urine NEGATIVE (Neg) Blood/HGB Urine 3+ Abnormal (Neg) Basic Metabolic Panel 01/20/[address] [address] [phone] Sodium 142 mmol/L (136-145) Potassium 4.7 mmol/L [...] 01/20/2020 [facility] [address] [place] [address] [phone] WBC 15.5 10*3/uL High (4.1-11.0) RBC 4.47 10*6/uL Low (4.60-6.10) HGB 14.3 g/dL (13.5-18.0) HCT 43.4 % (41.0-53.0) MCV 97.1 fL High (80.0-95.0) MCH 32.0 pg (27.0-32.0) MCHC 32.9 g/dL (32.0-36.0) RDW 14.5 % (10.5-14.5) PLT 172 10*3/uL (150-450) MPV 9.3 fL (7.1-10.7) 1 PERFORMED BY [facility] 2 Calculi composed primarily of: [...] composition determined by FTIR analysis. Performed By: [facility] [address] [place] [address] Rural [facility] Consultant: Ny Mckoen MD 3 Unit: mm 4 Specimen consists of a single, large, brown, irregular calculus. 5 PERFORMED BY [facility] 6 -- NORMAL KIDNEY FUNCTION [...] 21) 04:27 PM SOLEDAD WALLER Admitted to [facility] for IV antibiotics 13 THIS ASSAY [...] THE VIRUS THAT CAUSES COVID-19. EMAILED TO [facility] AT 5325 MR [id number] DX [address]. 15 SPECIMEN DESCRIPTION MIDSTREAM URINE,CLEAN CATCH CULTURE [...] dosing. Procedures Date Code Description Status 03/08/2020 72944 Cystourethroscopy Simple With Re moval Foreign Body Or Stent Completed 02/25/2020 25367 Cystourethroscopy, With Removal Or Manipulation Of Calculus Completed 02/25/2020 83999 Cystourethroscopy, With Insertio n Of Indwelling Ureteral Stent Completed 01/20/2020 25523 Retrograde,Pyelogram,Urography I nterpretation Completed 01/20/[address] Abdomen/Pelvis Wo Contrast Co mpleted 01/20/2020 77667 Cystourethroscopy, With Insertio n Of Indwelling Ureteral Stent Completed 03/26/2012 23960780 Colonoscopy Completed Medical Devices Active Inactive Description Device Identifier Assigning Authority 11/05/2017 Abdominal hernia surgical mesh c omposite-polymer ()[id number] [facility] 11/05/2017 Abdominal hernia surgical mesh c omposite-polymer ()[id number] [facility] Encounters Type Date Location Provider Dx Diagnosis Office Visit 02/02/2020 12:40p [facility] Sarthak Johnson MD N20.1 Calculus of ureter Assessments Date Code Description Provider 03/08/2020 N20.1 Calculus of ureter Sarthak swanson MD 03/08/2020 Z12.5 Encounter for screening for gavin gnant neoplasm of prostate Sarthak Johnson MD 02/25/2020 N20.1 Calculus of ureter Sarthak swanson MD 02/02/2020 N20.1 Calculus of ureter Sarthak swanson MD 01/23/2020 N39.0 Urinary tract infection, site no t specified Linnette Aldana,[employer] [place] 01/23/2020 R50.9 Fever, unspecified Linnette Monika,FN P 01/21/2020 N20.1 Calculus of ureter Linnette Aldana,FN P 01/21/2020 N39.0 Urinary tract infection, site no t specified Linnette Monika,[employer] [place] 01/20/2020 N13.2 Hydronephrosis with renal and ur eteral calculous obstruction Sarthak Johnson MD 01/20/2020 N20.0 Calculus of kidney Sarthak swanson MD 01/20/2020 N20.1 Calculus of ureter Raji Moreira MD 01/20/2020 N13.2 Hydronephrosis with renal and ur eteral calculous obstruction Soledad Waller NP Plan of Treatment Future Appointment(s):* 03/08/2021 1:00 pm - Soledad Waller NP at [facility] 03/08/2020 - Sarthak Johnson [...] Status Appt Date Sarthak Johnson M.D. Per [employer] Online: Hospit al Outpatient In Network CoPay :$300 - [facility] SURGICAL COPAY 300 SURG Final CoPay For This Member= $300.0 Per [employer] Online: CPT 10111,90494,23137,52 353,56868,79662,21082- authorization required. Submitted authorization for above codes. The request for services detailed below have been approved Reference Number: [id number] Authorization Number: [id number] Valid 02/25/20-04/25/20 02/17/20 ab Created [facility] Urology [address] [place] [phone] Sarthak Johnson M.D. Per [facility]/[employer] online CPT: 55358 Description: CT ABDOMEN & PELVIS W/O Auth: [id number] Review Date: 01/20/2020 9:16:13 AM Expiration Date: 03/05/2020 Status: Your case has been Approved. 01/20/2020 MO Created [facility] Urology [address] [place] [phone]
--- OUTSIDE RECORDS SUMMARY | 2020-04-21 16:24 | CCD | Continuity of Care Document ---
Author Author Jose ALDANA [facility] Organization Unknown Address [address] [place] [address] Phone [phone] Care Team Providers Care Stencil Inspector Name Role Phone Damian Matson M.D. AUTM [phone] Robert Alvarez M.D. AUTM [phone] Leroy Triana M.D. AUTM [phone] [id number] Direct-Pat AUTM Unavailable Problems Active Problems Provider [...] Chest pain Onset: 11/23/2015 Coronary arteriosclerosis in [place] artery Onset: 11/25/2015 Hypertensive disorder Onset: 11/25/2015 [...] Overview: Added automatically from request for surgery [id number] Social History Type Date Description Comments Sex [...] for pain Unk nown Oyster Shell Calcium/D [id number] Tablets Take 3 tablets by mouth 2 [...] Unknown Zofran 4mg Tablets prn Unknown Nystatin 429842Vgvo/GM Powder Apply 1 application topically 2 (two) [...] Negative Ua Clarity Not Entered Ua Specific [place] 1.015 1.003-1.030 Ua PH 5.5 5.0-7.5 Ua Bilirubin Negative Ua Urobilinogen 0.2 E.U./dL 0.0-1.0 Poct glucose 02/25/2020 N2N/CCD Import Glucose, Poc 140 mg/dL High 70 - 99 1 Stone Analysis 02/25/[address] [address] [phone] Composition See Note 2 Mass 166 mg Calculi Number 1 Calculi Size > 9 3 Calculi Description See Note 4 Poc Nova Glu 02/25/[address] [address] [phone] Poc Nova Glu 140 mg/dL High (70-99) 5 230 Ua Routine 02/02/2020 [facility] REF TO ADDRESS ON ORDER FOR (889)- - Ua Glucose Negative Ua Protein Negative Ua Nitrite Negative Ua Leuko Small Ua Blood Moderate Ua Color Not Entered Ua Ketones Negative Ua Clarity Not Entered Ua Specific [place] 1.015 1.003-1.030 Ua PH 5.5 5.0-7.5 Ua Bilirubin Negative Ua Urobilinogen 0.2 E.U./dL 0.0-1.0 CBC Without Diff 01/25/2020 [facility] [address] [place] [address] [phone] WBC 10.1 10*3/uL (4.1-11.0) RBC 3.88 10*6/uL Low (4.60-6.10) HGB 12.6 g/dL Low (13.5-18.0) HCT 37.6 % Low (41.0-53.0) MCV 96.8 fL High (80.0-95.0) MCH 32.3 pg High (27.0-32.0) MCHC 33.4 g/dL (32.0-36.0) RDW 14.2 % (10.5-14.5) PLT 192 10*3/uL (150-450) MPV 8.8 fL (7.1-10.7) Basic Metabolic Panel 01/25/2020 [facility] [address] [place] [address] [phone] Sodium 145 mmol/L (136-145) Potassium 3.8 mmol/L [...] <SEE NOTE> 6 CBC Without Diff 01/24/2020 [facility] [address] [place] [address] [phone] WBC 11.8 10*3/uL High (4.1-11.0) RBC 4.04 10*6/uL Low (4.60-6.10) HGB 12.9 g/dL Low (13.5-18.0) HCT 39.2 % Low (41.0-53.0) MCV 97.1 fL High (80.0-95.0) MCH 31.8 pg (27.0-32.0) MCHC 32.8 g/dL (32.0-36.0) RDW 14.1 % (10.5-14.5) PLT 152 10*3/uL (150-450) MPV 9.0 fL (7.1-10.7) Basic Metabolic Panel 01/24/2020 [facility] [address] [place] [address] [phone] Sodium 141 mmol/L (136-145) Potassium 3.7 mmol/L [...] <SEE NOTE> 7 Laboratory test finding 01/23/[address] [address] [phone] Troponin I <0.05 ng/mL (<0.05) 8 Basic Metabolic Panel 01/23/[address] [address] [phone] Sodium 138 mmol/L (136-145) Potassium 3.6 mmol/L [...] <SEE NOTE> 9 CBC Without Diff 01/23/[address] [address] [phone] WBC 14.4 10*3/uL High (4.1-11.0) RBC 3.93 10*6/uL Low (4.60-6.10) HGB 12.4 g/dL Low (13.5-18.0) HCT 37.8 % Low (41.0-53.0) MCV 96.3 fL High (80.0-95.0) MCH 31.6 pg (27.0-32.0) MCHC 32.8 g/dL (32.0-36.0) RDW 14.4 % (10.5-14.5) PLT 161 10*3/uL (150-450) MPV 9.1 fL (7.1-10.7) CBC Without Diff 01/21/2020 [facility] [address] [place] [address] [phone] WBC 10.5 10*3/uL (4.1-11.0) RBC 4.04 10*6/uL Low (4.60-6.10) HGB 12.9 g/dL Low (13.5-18.0) HCT 39.0 % Low (41.0-53.0) MCV 96.6 fL High (80.0-95.0) MCH 31.9 pg (27.0-32.0) MCHC 33.0 g/dL (32.0-36.0) RDW 14.3 % (10.5-14.5) PLT 146 10*3/uL Low (150-450) MPV 8.9 fL (7.1-10.7) Basic Metabolic Panel 01/21/2020 [facility] [address] [place] [address] [phone] Sodium 142 mmol/L (136-145) Potassium 4.0 mmol/L [...] REF TO DR ADDRESS ON ORDER FOR (716)- - Ua Glucose Negative Ua Protein Negative Ua Nitrite Positive Ua Leuko Small Ua Blood Moderate Ua Color Not Entered Ua Ketones Negative Ua Clarity Not Entered Ua Specific [place] 1.020 1.003-1.030 Ua PH 5.5 5.0-7.5 Ua Bilirubin Negative Ua Urobilinogen 0.2 E.U./dL 0.0-1.0 Laboratory test finding 01/20/2020 [facility] [address] [phone] Urine Culture SPECIMEN DESCRIP <SEE NOTE> 11, 12 Coronavirus By PCR 01/20/[address] [address] [phone] Specimen Description NASOPHARYNGEAL Covid19 Result NOT DETECTED (Ndet) 13 Comment THE U.S. FDA HAS <SEE NOTE> 14 First Test UNKNOWN Employed In [employer] UNKNOWN Symptomatic UNKNOWN Date Of Sympt Onset NOT APPLICABLE Hospitalized UNKNOWN Icu UNKNOWN Congregate Care Set UNKNOWN NO Laboratory test finding 01/20/[address] [address] [phone] Urine Culture SPECIMEN DESCRIP <SEE NOTE> 15 Urine Micro Only 01/20/[address] [address] [phone] Urine WBC * 50-100 [HPF] (0-5) Urine RBC * 25-50 [HPF] (0-2) Epithelial Cells 2+ [HPF] Bacteria 1+ [HPF] Urinalysis RFX 01/20/[address] [address] [phone] Color YELLOW Appearance CLOUDY Spec Grav Urine 1.017 (1.003-1.030) PH Urine 5.5 (5.0-7.5) Leuk Esterase 2+ Abnormal (Neg) Nitrite Urine POSITIVE Abnormal (Neg) Protein Urine NEGATIVE (Neg) Glucose Urine NEGATIVE (Neg) Ketone Urine NEGATIVE (Neg) Urobilinogen 1.0 mg/dL (0-1.0) Bilirubin Urine NEGATIVE (Neg) Blood/HGB Urine 3+ Abnormal (Neg) Basic Metabolic Panel 01/20/[address] [address] [phone] Sodium 142 mmol/L (136-145) Potassium 4.7 mmol/L [...] 01/20/2020 [facility] [address] [place] [address] [phone] WBC 15.5 10*3/uL High (4.1-11.0) RBC 4.47 10*6/uL Low (4.60-6.10) HGB 14.3 g/dL (13.5-18.0) HCT 43.4 % (41.0-53.0) MCV 97.1 fL High (80.0-95.0) MCH 32.0 pg (27.0-32.0) MCHC 32.9 g/dL (32.0-36.0) RDW 14.5 % (10.5-14.5) PLT 172 10*3/uL (150-450) MPV 9.3 fL (7.1-10.7) 1 PERFORMED BY [facility] 2 Calculi composed primarily of: [...] composition determined by FTIR analysis. Performed By: [employer] [address] [place] [address] Manufacturing Engineering Technician: Ny Mckeon MD 3 Unit: mm 4 Specimen consists of a single, large, brown, irregular calculus. 5 PERFORMED BY [facility] 6 -- NORMAL KIDNEY FUNCTION [...] 21) 04:27 PM SOLEDAD WALLER Admitted to [facility] for IV antibiotics 13 THIS ASSAY [...] THE VIRUS THAT CAUSES COVID-19. EMAILED TO [facility] AT 6389 QH 130728 FZ 59042. 15 SPECIMEN DESCRIPTION MIDSTREAM URINE,CLEAN CATCH CULTURE [...] dosing. Procedures Date Code Description Status 03/08/2020 85235 Cystourethroscopy Simple With Re moval Foreign Body Or Stent Completed 02/25/2020 51208 Cystourethroscopy, With Removal Or Manipulation Of Calculus Completed 02/25/2020 94333 Cystourethroscopy, With Insertio n Of Indwelling Ureteral Stent Completed 01/20/2020 24586 Retrograde,Pyelogram,Urography I nterpretation Completed 01/20/[address] Abdomen/Pelvis Wo Contrast Co mpleted 01/20/2020 70303 Cystourethroscopy, With Insertio n Of Indwelling Ureteral Stent Completed 03/26/2012 [id number] Colonoscopy Completed Medical Devices Active Inactive Description Device Identifier Assigning Authority 11/05/2017 Abdominal hernia surgical mesh c omposite-polymer ()[id number] [facility] 11/05/2017 Abdominal hernia surgical mesh c omposite-polymer ()[id number] [facility] Encounters Type Date Location Provider Dx Diagnosis Office Visit 02/02/2020 12:40p [facility] Sarthak Johnson MD N20.1 Calculus of ureter Assessments Date Code Description Provider 03/08/2020 N20.1 Calculus of ureter Sarthak swanson MD 03/08/2020 Z12.5 Encounter for screening for gavin gnant neoplasm of prostate Sarthak Johnson MD 02/25/2020 N20.1 Calculus of ureter Sarthak swanson MD 02/02/2020 N20.1 Calculus of ureter Sarthak swanson MD 01/23/2020 N39.0 Urinary tract infection, site no t specified Linnette Aldana,CASING PULLER 01/23/2020 R50.9 Fever, unspecified Linnette Monika,FN P 01/21/2020 N20.1 Calculus of ureter Linnette Aldana,FN P 01/21/2020 N39.0 Urinary tract infection, site no t specified Linnette Monika,CASING PULLER 01/20/2020 N13.2 Hydronephrosis with renal and ur eteral calculous obstruction Sarthak Johnson MD 01/20/2020 N20.0 Calculus of kidney Sarthak swanson MD 01/20/2020 N20.1 Calculus of ureter Raji Moreira MD 01/20/2020 N13.2 Hydronephrosis with renal and ur eteral calculous obstruction Soledad Waller NP Plan of Treatment Future Appointment(s):* 03/08/2021 1:00 pm - Soledad Waller NP at [facility]/ [facility] Urology 03/08/2020 - Sarthak Johnson MD* [...] Status Appt Date Sarthak Johnson M.D. Per Think[employer] Online: Hospit al Outpatient In Network CoPay :$300 - [facility] SURGICAL COPAY 300 SURG Final CoPay For This Member= $300.0 Per [employer] Online: CPT 96407,22167,68852,52 353,52409,69389,85416- authorization required. Submitted authorization for above codes. The request for services detailed below have been approved Reference Number: [id number] Authorization Number: [id number] Valid 02/25/20-04/25/20 02/17/20 ab Created [facility]rology [address] [place] [address] [phone] Sarthak Johnson M.D. Per [facility]/ThinkHR online CPT: 08922 Description: CT ABDOMEN & PELVIS W/O Auth: [id number] Review Date: 01/20/2020 9:16:13 AM Expiration Date: 03/05/2020 Status: Your case has been Approved. 01/20/2020 [place] Created [facility] Urology [address] [place] [address] [phone]
--- OUTSIDE RECORDS SUMMARY | 2020-04-21 16:24 | CCD | Continuity of Care Document ---
Author Author Jose ALDANA [facility] Organization Unknown Address [address] [place] [address] Phone [phone] Care Team Providers Care Clinic Lpn Name Role Phone Damian Matson M.D. AUTM [phone] Robert Alvarez M.D. AUTM [phone] Leroy Triana M.D. AUTM [phone] [facility] Direct-Pat AUTM Unavailable Problems Active Problems [...] Chest pain Onset: 11/23/2015 Coronary arteriosclerosis in [place] artery Onset: 11/25/2015 Hypertensive disorder Onset: 11/25/2015 [...] Overview: Added automatically from request for surgery [id number] Social History Type Date Description Comments Sex [...] needed for chest pain 30tabs I25.10 Leroy Triaan M.D. 02/09/[address] 1 by mouth every day Robert Alvarez M.D. 11/22/2015 Allopurinol 300mg Tablets 1 by mouth every day Robert Alvarez M.D. 11/22/2015 Pregabalin 150mg Capsules Take 150 mg by mouth 2 (two) times a day Unknown Acetaminophen 325mg Tablets Take 650 mg by mouth every 6 (six) hours as needed for pain Unk nown Oyster Shell Calcium/D 042-544to-Eymy Tablets Take 3 tablets by mouth 2 [...] Unknown Zofran 4mg Tablets prn Unknown Nystatin 109163Awrw/GM Powder Apply 1 application topically 2 (two) [...] Negative Ua Clarity Not Entered Ua Specific [place] 1.015 1.003-1.030 Ua PH 5.5 5.0-7.5 Ua Bilirubin Negative Ua Urobilinogen 0.2 E.U./dL 0.0-1.0 Poct glucose 02/25/2020 N2N/CCD Import Glucose, Poc 140 mg/dL High 70 - 99 1 Stone Analysis 02/25/[address] [address] [phone] Composition See Note 2 Mass 166 mg Calculi Number 1 Calculi Size > 9 3 Calculi Description See Note 4 Poc Nova Glu 02/25/[address] [address] [phone] Poc Nova Glu 140 mg/dL High (70-99) 5 230 Ua Routine 02/02/2020 [facility] REF TO ADDRESS ON ORDER FOR (813)- - Ua Glucose Negative Ua Protein Negative Ua Nitrite Negative Ua Leuko Small Ua Blood Moderate Ua Color Not Entered Ua Ketones Negative Ua Clarity Not Entered Ua Specific [place] 1.015 1.003-1.030 Ua PH 5.5 5.0-7.5 Ua Bilirubin Negative Ua Urobilinogen 0.2 E.U./dL 0.0-1.0 CBC Without Diff 01/25/2020 [facility] [address] [place] [address] [phone] WBC 10.1 10*3/uL (4.1-11.0) RBC 3.88 10*6/uL Low (4.60-6.10) HGB 12.6 g/dL Low (13.5-18.0) HCT 37.6 % Low (41.0-53.0) MCV 96.8 fL High (80.0-95.0) MCH 32.3 pg High (27.0-32.0) MCHC 33.4 g/dL (32.0-36.0) RDW 14.2 % (10.5-14.5) PLT 192 10*3/uL (150-450) MPV 8.8 fL (7.1-10.7) Basic Metabolic Panel 01/25/2020 [facility] [address] [place] [address] [phone] Sodium 145 mmol/L (136-145) Potassium 3.8 mmol/L [...] <SEE NOTE> 6 CBC Without Diff 01/24/2020 [facility] [address] [place] [address] [phone] WBC 11.8 10*3/uL High (4.1-11.0) RBC 4.04 10*6/uL Low (4.60-6.10) HGB 12.9 g/dL Low (13.5-18.0) HCT 39.2 % Low (41.0-53.0) MCV 97.1 fL High (80.0-95.0) MCH 31.8 pg (27.0-32.0) MCHC 32.8 g/dL (32.0-36.0) RDW 14.1 % (10.5-14.5) PLT 152 10*3/uL (150-450) MPV 9.0 fL (7.1-10.7) Basic Metabolic Panel 01/24/2020 [facility] [address] [place] [address] [phone] Sodium 141 mmol/L (136-145) Potassium 3.7 mmol/L [...] <SEE NOTE> 7 Laboratory test finding 01/23/[address] [address] [phone] Troponin I <0.05 ng/mL (<0.05) 8 Basic Metabolic Panel 01/23/[address] [address] [phone] Sodium 138 mmol/L (136-145) Potassium 3.6 mmol/L [...] <SEE NOTE> 9 CBC Without Diff 01/23/[address] [address] [phone] WBC 14.4 10*3/uL High (4.1-11.0) RBC 3.93 10*6/uL Low (4.60-6.10) HGB 12.4 g/dL Low (13.5-18.0) HCT 37.8 % Low (41.0-53.0) MCV 96.3 fL High (80.0-95.0) MCH 31.6 pg (27.0-32.0) MCHC 32.8 g/dL (32.0-36.0) RDW 14.4 % (10.5-14.5) PLT 161 10*3/uL (150-450) MPV 9.1 fL (7.1-10.7) CBC Without Diff 01/21/2020 [facility] [address] [place] [address] [phone] WBC 10.5 10*3/uL (4.1-11.0) RBC 4.04 10*6/uL Low (4.60-6.10) HGB 12.9 g/dL Low (13.5-18.0) HCT 39.0 % Low (41.0-53.0) MCV 96.6 fL High (80.0-95.0) MCH 31.9 pg (27.0-32.0) MCHC 33.0 g/dL (32.0-36.0) RDW 14.3 % (10.5-14.5) PLT 146 10*3/uL Low (150-450) MPV 8.9 fL (7.1-10.7) Basic Metabolic Panel 01/21/2020 [facility] [address] [place] [address] [phone] Sodium 142 mmol/L (136-145) Potassium 4.0 mmol/L [...] REF TO DR ADDRESS ON ORDER FOR (746)- - Ua Glucose Negative Ua Protein Negative Ua Nitrite Positive Ua Leuko Small Ua Blood Moderate Ua Color Not Entered Ua Ketones Negative Ua Clarity Not Entered Ua Specific [place] 1.020 1.003-1.030 Ua PH 5.5 5.0-7.5 Ua Bilirubin Negative Ua Urobilinogen 0.2 E.U./dL 0.0-1.0 Laboratory test finding 01/20/2020 [facility] [address] [phone] Urine Culture SPECIMEN DESCRIP <SEE NOTE> 11, 12 Coronavirus By PCR 01/20/[address] [address] [phone] Specimen Description NASOPHARYNGEAL Covid19 Result NOT DETECTED (Ndet) 13 Comment THE U.S. FDA HAS <SEE NOTE> 14 First Test UNKNOWN Employed In [employer] UNKNOWN Symptomatic UNKNOWN Date Of Sympt Onset NOT APPLICABLE Hospitalized UNKNOWN Icu UNKNOWN Congregate Care Set UNKNOWN NO Laboratory test finding 01/20/[address] [address] [phone] Urine Culture SPECIMEN DESCRIP <SEE NOTE> 15 Urine Micro Only 01/20/[address] [address] [phone] Urine WBC * 50-100 [HPF] (0-5) Urine RBC * 25-50 [HPF] (0-2) Epithelial Cells 2+ [HPF] Bacteria 1+ [HPF] Urinalysis RFX 01/20/[address] [address] [phone] Color YELLOW Appearance CLOUDY Spec Grav Urine 1.017 (1.003-1.030) PH Urine 5.5 (5.0-7.5) Leuk Esterase 2+ Abnormal (Neg) Nitrite Urine POSITIVE Abnormal (Neg) Protein Urine NEGATIVE (Neg) Glucose Urine NEGATIVE (Neg) Ketone Urine NEGATIVE (Neg) Urobilinogen 1.0 mg/dL (0-1.0) Bilirubin Urine NEGATIVE (Neg) Blood/HGB Urine 3+ Abnormal (Neg) Basic Metabolic Panel 01/20/[address] [address] [phone] Sodium 142 mmol/L (136-145) Potassium 4.7 mmol/L [...] 01/20/2020 [facility] [address] [place] [address] [phone] WBC 15.5 10*3/uL High (4.1-11.0) RBC 4.47 10*6/uL Low (4.60-6.10) HGB 14.3 g/dL (13.5-18.0) HCT 43.4 % (41.0-53.0) MCV 97.1 fL High (80.0-95.0) MCH 32.0 pg (27.0-32.0) MCHC 32.9 g/dL (32.0-36.0) RDW 14.5 % (10.5-14.5) PLT 172 10*3/uL (150-450) MPV 9.3 fL (7.1-10.7) 1 PERFORMED BY [facility] 2 Calculi composed primarily [...] composition determined by FTIR analysis. Performed By: [employer] [address] [place] [address] Surveillance Systems Analyst: Ny Mckeon MD 3 Unit: mm 4 Specimen consists of a single, large, brown, irregular calculus. 5 PERFORMED BY [facility] 6 -- NORMAL KIDNEY [...] 21) 04:27 PM SOLEDAD WALLER Admitted to [facility] for IV antibiotics 13 THIS [...] THE VIRUS THAT CAUSES COVID-19. EMAILED TO [facility] AT 6799 XL [id number] QK [address]. 15 SPECIMEN DESCRIPTION MIDSTREAM URINE,CLEAN CATCH CULTURE [...] dosing. Procedures Date Code Description Status 03/08/2020 29372 Cystourethroscopy Simple With Re moval Foreign Body Or Stent Completed 02/25/2020 08489 Cystourethroscopy, With Removal Or Manipulation Of Calculus Completed 02/25/2020 23113 Cystourethroscopy, With Insertio n Of Indwelling Ureteral Stent Completed 01/20/2020 47128 Retrograde,Pyelogram,Urography I nterpretation Completed 01/20/[address] Abdomen/Pelvis Wo Contrast Co mpleted 01/20/2020 10713 Cystourethroscopy, With Insertio n Of Indwelling Ureteral Stent Completed 03/26/2012 [id number] Colonoscopy Completed Medical Devices Active Inactive Description Device Identifier Assigning Authority 11/05/2017 Abdominal hernia surgical mesh c omposite-polymer ()[id number] [facility] 11/05/2017 Abdominal hernia surgical mesh c omposite-polymer ()[id number] [facility] Encounters Type Date Location Provider Dx Diagnosis Office Visit 02/02/2020 12:40p [facility] Urology Sarthak Johnson MD [...] tract infection, site no t specified Linnette Aldana,BINDING MACHINE OPERATOR 01/23/2020 R50.9 Fever, unspecified Linnette Monika,FN P 01/21/2020 N20.1 Calculus of ureter Linnette Aldana,FN P 01/21/2020 N39.0 Urinary tract infection, site no t specified Linnette Monika,BINDING MACHINE OPERATOR 01/20/2020 N13.2 Hydronephrosis with renal and ur eteral calculous obstruction Sarthak Johnson MD 01/20/2020 N20.0 Calculus of kidney Sarthak swanson MD 01/20/2020 N20.1 Calculus of ureter Raji Moreira MD 01/20/2020 N13.2 Hydronephrosis with renal and ur eteral calculous obstruction Soledad Waller NP Plan of Treatment Future Appointment(s):* 03/08/2021 1:00 pm - Soledad Waller NP at [facility]/ [facility] Urology 03/08/2020 - Sarthak [...] Status Appt Date Sarthak Johnson M.D. Per [employer] Online: Hospit al Outpatient In Network CoPay :$300 - [facility] SURGICAL COPAY 300 SURG Final CoPay For This Member= $300.0 Per [employer] Online: CPT 45188,99036,32779,52 353,03732,23074,76139- authorization required. Submitted authorization for above codes. The request for services detailed below have been approved Reference Number: [id number] Authorization Number: [id number] Valid 02/25/20-04/25/20 02/17/20 ab Created [facility] Urology [address] [place] [address] [phone] Sarthak Johnson M.D. Per [facility]/[employer] online CPT: 87146 Description: CT ABDOMEN & PELVIS W/O Auth: [id number] Review Date: 01/20/2020 9:16:13 AM Expiration Date: 03/05/2020 Status: Your case has been Approved. 01/20/2020 [place] Created [facility] Urology [address] [place] [address] [phone]
--- OUTSIDE RECORDS SUMMARY | 2020-04-21 16:24 | CCD ---
Continuity of Care Document (CCD) Created on: 04/09/2020 [employer] External Reference #: [id number] : [id number] Sex: Male Author Author Jose ALDANA [facility] Organization Unknown Address [address] [place] [address] Phone [phone] Care Team Providers Care Water Plant Pump Operator Supervisor Name Role Phone Damian Matson M.D. AUTM [phone] Robert Alvarez M.D. AUTM [phone] Leroy Triana M.D. AUTM [phone] [facility] Direct-Pat AUTM [...] Chest pain Onset: 11/23/2015 Coronary arteriosclerosis in [place] artery Onset: 11/25/2015 Hypertensive disorder Onset: 11/25/2015 [...] Overview: Added automatically from request for surgery [id number] Social History Type Date Description Comments Sex [...] for pain Unk nown Oyster Shell Calcium/D [id number] Tablets Take 3 tablets by mouth 2 [...] Unknown Zofran 4mg Tablets prn Unknown Nystatin [id number] Powder Apply 1 application topically 2 (two) [...] Negative Ua Clarity Not Entered Ua Specific [place] 1.015 1.003-1.030 Ua PH 5.5 5.0-7.5 Ua Bilirubin Negative Ua Urobilinogen 0.2 E.U./dL 0.0-1.0 Poct glucose 02/25/2020 N2N/CCD Import Glucose, Poc 140 mg/dL High 70 - 99 1 Stone Analysis 02/25/[address] [address] [phone] Composition See Note 2 Mass 166 mg Calculi Number 1 Calculi Size > 9 3 Calculi Description See Note 4 Poc Nova Glu 02/25/[address] [address] [phone] Poc Nova Glu 140 mg/dL High (70-99) 5 230 Ua Routine 02/02/2020 [facility] REF TO ADDRESS ON ORDER FOR (620)- - Ua Glucose Negative Ua Protein Negative Ua Nitrite Negative Ua Leuko Small Ua Blood Moderate Ua Color Not Entered Ua Ketones Negative Ua Clarity Not Entered Ua Specific [place] 1.015 1.003-1.030 Ua PH 5.5 5.0-7.5 Ua Bilirubin Negative Ua Urobilinogen 0.2 E.U./dL 0.0-1.0 CBC Without Diff 01/25/2020 [facility] [address] [place] [address] [phone] WBC 10.1 10*3/uL (4.1-11.0) RBC 3.88 10*6/uL Low (4.60-6.10) HGB 12.6 g/dL Low (13.5-18.0) HCT 37.6 % Low (41.0-53.0) MCV 96.8 fL High (80.0-95.0) MCH 32.3 pg High (27.0-32.0) MCHC 33.4 g/dL (32.0-36.0) RDW 14.2 % (10.5-14.5) PLT 192 10*3/uL (150-450) MPV 8.8 fL (7.1-10.7) Basic Metabolic Panel 01/25/2020 [facility] [address] [place] [address] [phone] Sodium 145 mmol/L (136-145) Potassium 3.8 mmol/L [...] <SEE NOTE> 6 CBC Without Diff 01/24/2020 [facility] [address] [place] [address] [phone] WBC 11.8 10*3/uL High (4.1-11.0) RBC 4.04 10*6/uL Low (4.60-6.10) HGB 12.9 g/dL Low (13.5-18.0) HCT 39.2 % Low (41.0-53.0) MCV 97.1 fL High (80.0-95.0) MCH 31.8 pg (27.0-32.0) MCHC 32.8 g/dL (32.0-36.0) RDW 14.1 % (10.5-14.5) PLT 152 10*3/uL (150-450) MPV 9.0 fL (7.1-10.7) Basic Metabolic Panel 01/24/2020 [facility] [address] [place] [address] [phone] Sodium 141 mmol/L (136-145) Potassium 3.7 mmol/L [...] <SEE NOTE> 7 Laboratory test finding 01/23/[address] [address] [phone] Troponin I <0.05 ng/mL (<0.05) 8 Basic Metabolic Panel 01/23/[address] [address] [phone] Sodium 138 mmol/L (136-145) Potassium 3.6 mmol/L [...] <SEE NOTE> 9 CBC Without Diff 01/23/[address] [address] [phone] WBC 14.4 10*3/uL High (4.1-11.0) RBC 3.93 10*6/uL Low (4.60-6.10) HGB 12.4 g/dL Low (13.5-18.0) HCT 37.8 % Low (41.0-53.0) MCV 96.3 fL High (80.0-95.0) MCH 31.6 pg (27.0-32.0) MCHC 32.8 g/dL (32.0-36.0) RDW 14.4 % (10.5-14.5) PLT 161 10*3/uL (150-450) MPV 9.1 fL (7.1-10.7) CBC Without Diff 01/21/2020 [facility] [address] [place] [address] [phone] WBC 10.5 10*3/uL (4.1-11.0) RBC 4.04 10*6/uL Low (4.60-6.10) HGB 12.9 g/dL Low (13.5-18.0) HCT 39.0 % Low (41.0-53.0) MCV 96.6 fL High (80.0-95.0) MCH 31.9 pg (27.0-32.0) MCHC 33.0 g/dL (32.0-36.0) RDW 14.3 % (10.5-14.5) PLT 146 10*3/uL Low (150-450) MPV 8.9 fL (7.1-10.7) Basic Metabolic Panel 01/21/2020 [facility] [address] [place] [address] [phone] Sodium 142 mmol/L (136-145) Potassium 4.0 mmol/L [...] REF TO DR ADDRESS ON ORDER FOR (252)- - Ua Glucose Negative Ua Protein Negative Ua Nitrite Positive Ua Leuko Small Ua Blood Moderate Ua Color Not Entered Ua Ketones Negative Ua Clarity Not Entered Ua Specific [place] 1.020 1.003-1.030 Ua PH 5.5 5.0-7.5 Ua Bilirubin Negative Ua Urobilinogen 0.2 E.U./dL 0.0-1.0 Laboratory test finding 01/20/2020 [facility] [place] [address] [phone] Urine Culture SPECIMEN DESCRIP <SEE NOTE> 11, 12 Coronavirus By PCR 01/20/[address] [address] [phone] Specimen Description NASOPHARYNGEAL Covid19 Result NOT DETECTED (Ndet) 13 Comment THE U.S. FDA HAS <SEE NOTE> 14 First Test UNKNOWN Employed In [employer] [employer] UNKNOWN Symptomatic UNKNOWN Date Of Sympt Onset NOT APPLICABLE Hospitalized UNKNOWN Icu UNKNOWN Congregate Care Set UNKNOWN NO Laboratory test finding 01/20/[address] [address] [phone] Urine Culture SPECIMEN DESCRIP <SEE NOTE> 15 Urine Micro Only 01/20/[address] [address] [phone] Urine WBC * 50-100 [HPF] (0-5) Urine RBC * 25-50 [HPF] (0-2) Epithelial Cells 2+ [HPF] Bacteria 1+ [HPF] Urinalysis RFX 01/20/[address] [address] [phone] Color YELLOW Appearance CLOUDY Spec Grav Urine 1.017 (1.003-1.030) PH Urine 5.5 (5.0-7.5) Leuk Esterase 2+ Abnormal (Neg) Nitrite Urine POSITIVE Abnormal (Neg) Protein Urine NEGATIVE (Neg) Glucose Urine NEGATIVE (Neg) Ketone Urine NEGATIVE (Neg) Urobilinogen 1.0 mg/dL (0-1.0) Bilirubin Urine NEGATIVE (Neg) Blood/HGB Urine 3+ Abnormal (Neg) Basic Metabolic Panel 01/20/[address] [address] [phone] Sodium 142 mmol/L (136-145) Potassium 4.7 mmol/L [...] 01/20/2020 [facility] [address] [place] [address] [phone] WBC 15.5 10*3/uL High (4.1-11.0) RBC 4.47 10*6/uL Low (4.60-6.10) HGB 14.3 g/dL (13.5-18.0) HCT 43.4 % (41.0-53.0) MCV 97.1 fL High (80.0-95.0) MCH 32.0 pg (27.0-32.0) MCHC 32.9 g/dL (32.0-36.0) RDW 14.5 % (10.5-14.5) PLT 172 10*3/uL (150-450) MPV 9.3 fL (7.1-10.7) [address] [facility] 2 Calculi composed primarily of: [...] composition determined by FTIR analysis. Performed By: [facility] [address] [place] [address] Washcoat Wiper: Ny Mckeon MD 3 Unit: mm 4 Specimen consists of a single, large, brown, irregular calculus. [address] [facility] 6 -- NORMAL KIDNEY FUNCTION [...] 21) 04:27 PM SOLEDAD WALLER Admitted to [facility] for IV antibiotics 13 THIS ASSAY AMPLIFIES [...] THE VIRUS THAT CAUSES COVID-19. EMAILED TO [facility] AT 9557 XN [id number] KF 76255. 15 SPECIMEN DESCRIPTION MIDSTREAM URINE,CLEAN CATCH CULTURE [...] dosing. Procedures Date Code Description Status 03/08/2020 78776 Cystourethroscopy Simple With Re moval Foreign Body Or Stent Completed 02/25/2020 40887 Cystourethroscopy, With Removal Or Manipulation Of Calculus Completed 02/25/2020 47469 Cystourethroscopy, With Insertio n Of Indwelling Ureteral Stent Completed 01/20/2020 06447 Retrograde,Pyelogram,Urography I nterpretation Completed 01/20/[address] Abdomen/Pelvis Wo Contrast Co mpleted 01/20/2020 06813 Cystourethroscopy, With Insertio n Of Indwelling Ureteral Stent Completed 03/26/2012 [id number] Colonoscopy Completed Medical Devices Active Inactive Description Device Identifier Assigning Authority 11/05/2017 Abdominal hernia surgical mesh c omposite-polymer ()[id number] [facility] 11/05/2017 Abdominal hernia surgical mesh c omposite-polymer ()[id number] [facility] Encounters Type Date Location Provider Dx Diagnosis Office Visit 02/02/2020 12:40p [facility] Sarthak Johnson MD N20.1 Calculus of ureter Assessments Date Code Description Provider 03/08/2020 N20.1 Calculus of ureter Sarthak swanson MD 03/08/2020 Z12.5 Encounter for screening for gavin gnant neoplasm of prostate Sarthak Johnson MD 02/25/2020 N20.1 Calculus of ureter Sarthak swanson MD 02/02/2020 N20.1 Calculus of ureter Sarthak swanson MD 01/23/2020 N39.0 Urinary tract infection, site no t specified Linnette Aldana,CHILD CARE AIDE 01/23/2020 R50.9 Fever, unspecified Linnette Monika,FN P 01/21/2020 N20.1 Calculus of ureter Linnette Aldana,FN P 01/21/2020 N39.0 Urinary tract infection, site no t specified Linnette Monika,CHILD CARE AIDE 01/20/2020 N13.2 Hydronephrosis with renal and ur eteral calculous obstruction Sarthak Johnson MD 01/20/2020 N20.0 Calculus of kidney Sarthak swanson MD 01/20/2020 N20.1 Calculus of ureter Raji Moreira MD 01/20/2020 N13.2 Hydronephrosis with renal and ur eteral calculous obstruction Soledad Waller NP Plan of Treatment Future Appointment(s):* 03/08/2021 1:00 pm - Soledad Waller NP at [facility] 03/08/2020 - Sarthak Johnson [...] Status Appt Date Sarthak Johnson M.D. Per [employer] Online: Hospit al Outpatient In Network CoPay :$300 - [facility]IENT [facility] SURGICAL COPAY 300 SURG Final CoPay For This Member= $300.0 Per [employer] Online: CPT 94356,48653,37139,52 353,94547,35405,29958- authorization required. Submitted authorization for above codes. The request for services detailed below have been approved Reference Number: [id number] Authorization Number: [id number] Valid 02/25/20-04/25/20 02/17/20 ab Created [facility] [address] [place] [phone] Sarthak Johnson M.D. Per [facility]/[employer] online CPT: 60121 Description: CT ABDOMEN & PELVIS W/O Auth: [id number] Review Date: 01/20/2020 9:16:13 AM Expiration Date: 03/05/2020 Status: Your case has been Approved. 01/20/2020 MO Created [facility] [address] [place] [phone]
--- OUTSIDE RECORDS SUMMARY | 2020-04-21 16:24 | CCD | Continuity of Care Document ---
Author Author Jose ALDANA [facility] Organization Unknown Address [address] [place] [address] Phone [phone] Care Team Providers Care Chemical Milling Processor Name Role Phone Damian Matson M.D. AUTM [phone] Robert Alvarez M.D. AUTM [phone] Leroy Triana M.D. AUTM [phone] [facility] Direct-Pat AUTM Unavailable Problems Active Problems Provider [...] Chest pain Onset: 11/23/2015 Coronary arteriosclerosis in [place] artery Onset: 11/25/2015 Hypertensive disorder Onset: 11/25/2015 [...] Overview: Added automatically from request for surgery [id number] Social History Type Date Description Comments Sex [...] 300mg Tablets 1 by mouth every day oRbert Alvarez M.D. 11/22/2015 Pregabalin 150mg Capsules Take 150 mg by mouth 2 (two) times a day Unknown Acetaminophen 325mg Tablets Take 650 mg by mouth every 6 (six) hours as needed for pain Unk nown Oyster Shell Calcium/D [id number] Tablets Take 3 tablets by mouth 2 [...] Unknown Zofran 4mg Tablets prn Unknown Nystatin [id number]/GM Powder Apply 1 application topically 2 (two) [...] Negative Ua Clarity Not Entered Ua Specific [place] 1.015 1.003-1.030 Ua PH 5.5 5.0-7.5 Ua Bilirubin Negative Ua Urobilinogen 0.2 E.U./dL 0.0-1.0 Poct glucose 02/25/2020 N2N/CCD Import Glucose, Poc 140 mg/dL High 70 - 99 1 Stone Analysis 02/25/[address] [address] [phone] Composition See Note 2 Mass 166 mg Calculi Number 1 Calculi Size > 9 3 Calculi Description See Note 4 Poc Nova Glu 02/25/[address] [address] [phone] Poc Nova Glu 140 mg/dL High (70-99) 5 230 Ua Routine 02/02/2020 [facility] REF TO ADDRESS ON ORDER FOR (895)- - Ua Glucose Negative Ua Protein Negative Ua Nitrite Negative Ua Leuko Small Ua Blood Moderate Ua Color Not Entered Ua Ketones Negative Ua Clarity Not Entered Ua Specific [place] 1.015 1.003-1.030 Ua PH 5.5 5.0-7.5 Ua Bilirubin Negative Ua Urobilinogen 0.2 E.U./dL 0.0-1.0 CBC Without Diff 01/25/2020 [facility] [address] [place] [address] [phone] WBC 10.1 10*3/uL (4.1-11.0) RBC 3.88 10*6/uL Low (4.60-6.10) HGB 12.6 g/dL Low (13.5-18.0) HCT 37.6 % Low (41.0-53.0) MCV 96.8 fL High (80.0-95.0) MCH 32.3 pg High (27.0-32.0) MCHC 33.4 g/dL (32.0-36.0) RDW 14.2 % (10.5-14.5) PLT 192 10*3/uL (150-450) MPV 8.8 fL (7.1-10.7) Basic Metabolic Panel 01/25/2020 [facility] [address] [place] [address] [phone] Sodium 145 mmol/L (136-145) Potassium 3.8 mmol/L [...] <SEE NOTE> 6 CBC Without Diff 01/24/2020 [facility] [address] [place] [address] [phone] WBC 11.8 10*3/uL High (4.1-11.0) RBC 4.04 10*6/uL Low (4.60-6.10) HGB 12.9 g/dL Low (13.5-18.0) HCT 39.2 % Low (41.0-53.0) MCV 97.1 fL High (80.0-95.0) MCH 31.8 pg (27.0-32.0) MCHC 32.8 g/dL (32.0-36.0) RDW 14.1 % (10.5-14.5) PLT 152 10*3/uL (150-450) MPV 9.0 fL (7.1-10.7) Basic Metabolic Panel 01/24/2020 [facility] [address] [place] [address] [phone] Sodium 141 mmol/L (136-145) Potassium 3.7 mmol/L [...] NOTE> 7 Laboratory test finding 01/23/[address] [address] [phone] Troponin I <0.05 ng/mL (<0.05) 8 Basic Metabolic Panel 01/23/[address] [address] [phone] Sodium 138 mmol/L (136-145) Potassium 3.6 mmol/L [...] NOTE> 9 CBC Without Diff 01/23/[address] [address] [phone] WBC 14.4 10*3/uL High (4.1-11.0) RBC 3.93 10*6/uL Low (4.60-6.10) HGB 12.4 g/dL Low (13.5-18.0) HCT 37.8 % Low (41.0-53.0) MCV 96.3 fL High (80.0-95.0) MCH 31.6 pg (27.0-32.0) MCHC 32.8 g/dL (32.0-36.0) RDW 14.4 % (10.5-14.5) PLT 161 10*3/uL (150-450) MPV 9.1 fL (7.1-10.7) CBC Without Diff 01/21/2020 [facility] [address] [place] [address] [phone] WBC 10.5 10*3/uL (4.1-11.0) RBC 4.04 10*6/uL Low (4.60-6.10) HGB 12.9 g/dL Low (13.5-18.0) HCT 39.0 % Low (41.0-53.0) MCV 96.6 fL High (80.0-95.0) MCH 31.9 pg (27.0-32.0) MCHC 33.0 g/dL (32.0-36.0) RDW 14.3 % (10.5-14.5) PLT 146 10*3/uL Low (150-450) MPV 8.9 fL (7.1-10.7) Basic Metabolic Panel 01/21/2020 [facility] [address] [place] [address] [phone] Sodium 142 mmol/L (136-145) Potassium 4.0 mmol/L [...] REF TO DR ADDRESS ON ORDER FOR (647)- - Ua Glucose Negative Ua Protein Negative Ua Nitrite Positive Ua Leuko Small Ua Blood Moderate Ua Color Not Entered Ua Ketones Negative Ua Clarity Not Entered Ua Specific [place] 1.020 1.003-1.030 Ua PH 5.5 5.0-7.5 Ua Bilirubin Negative Ua Urobilinogen 0.2 E.U./dL 0.0-1.0 Laboratory test finding 01/20/2020 [facility] [address] [phone] Urine Culture SPECIMEN DESCRIP <SEE NOTE> 11, 12 Coronavirus By PCR 01/20/[address] [address] [phone] Specimen Description NASOPHARYNGEAL Covid19 Result NOT DETECTED (Ndet) 13 Comment THE U.S. FDA HAS <SEE NOTE> 14 First Test UNKNOWN [facility] [employer] [facility] UNKNOWN Symptomatic UNKNOWN Date Of Sympt Onset NOT APPLICABLE Hospitalized UNKNOWN Icu UNKNOWN Congregate Care Set UNKNOWN NO Laboratory test finding 01/20/[address] [address] [phone] Urine Culture SPECIMEN DESCRIP <SEE NOTE> 15 Urine Micro Only 01/20/[address] [address] [phone] Urine WBC * 50-100 [HPF] (0-5) Urine RBC * 25-50 [HPF] (0-2) Epithelial Cells 2+ [HPF] Bacteria 1+ [HPF] Urinalysis RFX 01/20/[address] [address] [phone] Color YELLOW Appearance CLOUDY Spec Grav Urine 1.017 (1.003-1.030) PH Urine 5.5 (5.0-7.5) Leuk Esterase 2+ Abnormal (Neg) Nitrite Urine POSITIVE Abnormal (Neg) Protein Urine NEGATIVE (Neg) Glucose Urine NEGATIVE (Neg) Ketone Urine NEGATIVE (Neg) Urobilinogen 1.0 mg/dL (0-1.0) Bilirubin Urine NEGATIVE (Neg) Blood/HGB Urine 3+ Abnormal (Neg) Basic Metabolic Panel 01/20/[address] [address] [phone] Sodium 142 mmol/L (136-145) Potassium 4.7 mmol/L [...] 01/20/2020 [facility] [address] [place] [address] [phone] WBC 15.5 10*3/uL High (4.1-11.0) RBC 4.47 10*6/uL Low (4.60-6.10) HGB 14.3 g/dL (13.5-18.0) HCT 43.4 % (41.0-53.0) MCV 97.1 fL High (80.0-95.0) MCH 32.0 pg (27.0-32.0) MCHC 32.9 g/dL (32.0-36.0) RDW 14.5 % (10.5-14.5) PLT 172 10*3/uL (150-450) MPV 9.3 fL (7.1-10.7) 1 PERFORMED BY [facility] 2 Calculi composed [...] composition determined by FTIR analysis. Performed By: [facility] [address] [place] [address] Pc Maintenance Technician: Ny Mckeon MD 3 Unit: mm 4 Specimen consists of a single, large, brown, irregular calculus. 5 PERFORMED BY [facility] 6 -- NORMAL [...] 21) 04:27 PM SOLEDAD WALLER Admitted to [facility] for IV antibiotics 13 THIS ASSAY [...] THE VIRUS THAT CAUSES COVID-19. EMAILED TO [facility] AT [address] [place] [id number] ZR [address]8635. 15 SPECIMEN DESCRIPTION MIDSTREAM URINE,CLEAN CATCH CULTURE [...] dosing. Procedures Date Code Description Status 03/08/2020 62401 Cystourethroscopy Simple With Re moval Foreign Body Or Stent Completed 02/25/2020 69857 Cystourethroscopy, With Removal Or Manipulation Of Calculus Completed 02/25/2020 49459 Cystourethroscopy, With Insertio n Of Indwelling Ureteral Stent Completed 01/20/2020 78640 Retrograde,Pyelogram,Urography I nterpretation Completed 01/20/[address] Abdomen/Pelvis Wo Contrast Co mpleted 01/20/2020 90221 Cystourethroscopy, With Insertio n Of Indwelling Ureteral Stent Completed 03/26/2012 [id number] Colonoscopy Completed Medical Devices Active Inactive Description Device Identifier Assigning Authority 11/05/2017 Abdominal hernia surgical mesh c omposite-polymer ()[id number] [facility] 11/05/2017 Abdominal hernia surgical mesh c omposite-polymer ()[id number] [facility] Encounters Type Date Location Provider Dx Diagnosis Office Visit 02/02/2020 12:40p [facility] Sarthak Johnson MD [...] tract infection, site no t specified Linnette Aldana,GRADES 1 THROUGH 5 TEACHER 01/23/2020 R50.9 Fever, unspecified Linnette Monika,FN P 01/21/2020 N20.1 Calculus of ureter Linnette Aldana,FN P 01/21/2020 N39.0 Urinary tract infection, site no t specified Linnette Monika,GRADES 1 THROUGH 5 TEACHER 01/20/2020 N13.2 Hydronephrosis with renal and ur eteral calculous obstruction Sarthak Johnson MD 01/20/2020 N20.0 Calculus of kidney aSrthak swanson MD 01/20/2020 N20.1 Calculus of ureter Raji Moreira MD 01/20/2020 N13.2 Hydronephrosis with renal and ur eteral calculous obstruction Soledad Waller NP Plan of Treatment Future Appointment(s):* 03/08/2021 1:00 pm - Soledad Waller NP at [facility] 03/08/2020 - Sarthak [...] Status Appt Date Sarthak Johnson M.D. Per [employer] Online: Hospit al Outpatient In Network CoPay :$300 - [facility]IENT [facility]ITAL SURGICAL COPAY 300 SURG Final CoPay For This Member= $300.0 Per [employer] Online: CPT 75862,25414,29009,52 353,97430,20576,38316- authorization required. Submitted authorization for above codes. The request for services detailed below have been approved Reference Number: [id number] Authorization Number: [id number] Valid 02/25/20-04/25/20 02/17/20 ab Created [facility] [address] [place] [phone] Sarthak Johnson M.D. Per [facility]/[employer] online CPT: 76923 Description: CT ABDOMEN & PELVIS W/O Auth: [id number] Review Date: 01/20/2020 9:16:13 AM Expiration Date: 03/05/2020 Status: Your case has been Approved. 01/20/2020 MO Created [facility] [address] [place] [phone]
--- OUTSIDE RECORDS SUMMARY | 2020-04-21 16:25 | CCD | Continuity of Care Document ---
Author Organization Unknown Address Unknown Phone Unavailable Care Team Providers Care Back Strip Machine Operator Name Role Phone Robert Alvarez MD AUTM [phone] Sandra Leong MD AUTM [phone] Dereck Velasquez MD AUTM [phone] An Artis MD AUTM Rosaura Mark COMPUTING ARCHITECT AUTM [phone] Problems Active Problems Provider Date Impending infarction Leroy Triana MD Onset: 11/23/2015 Electrocardiogram abnormal Leroy Triana MD Onset: 2015 Dyspnea Leroy Triana MD Onset: 11/23/2015 Palpitations Leroy Triana MD Onset: 11/23/2015 Essential hypertension Leroy Triana MD Onset: 11/23/2015 Edema Leroy Triana MD Onset: 11/23/2015 Obesity Leroy Triana MD Onset: 11/23/2015 Supraventricular premature beats Leroy Triana MD Onset: 01/07/2016 History of coronary artery bypass grafting Nilay Bryant Onset: 01/07/2016 Body mass index 40+ - severely obese Leroy Triana MD Ons et: 01/07/2016 Multi vessel coronary artery disease Leroy Triana MD Ons et: 01/07/2016 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 Leroy Triana MD Onset: 01/07/2016 Transient visual loss Leroy Triana MD Onset: 03/15/2016 Precordial pain Leroy Triana MD Onset: 04/27/2016 Iron deficiency anemia Leroy Triana MD Onset: 07/28/2016 Dizziness and giddiness JONAS BarnesP-C Onset: 017 Patient post percutaneous transluminal coronary angiop lasty Shanae L Jacob, PA Onset: 06/11/2017 Mixed hyperlipidemia PETER Toledo Onset: 06/11/2017 Dietary management surveillance PETER Toledo Onset: 06/11/2017 Preoperative cardiovascular examination PETER Toledo Onset: 10/29/2017 Social History Type Date Description Comments Sex Unknown ETOH Use Does not consume alcohol Tobacco Use Start: Unknown End: Unknown Patient is a former smoker Quit 30 yrs ago. Previously smoked up to 2.5 ppd x 24 yrs Smoking Status Reviewed: 09/02/19 Patient is a former smoker Qu it 30 yrs ago. Previously smoked up to 2.5 ppd x 24 yrs Exercise Type/Frequency General Activities Daily Exercise Type/Frequency Does yardwork sporadical ly Exercise Type/Frequency Walks sporadically Exercise Limitations Back Pain Allergies, Adverse Reactions, Alerts Active Allergies Reaction Severity Comments Date Penicillin rash 11/22/2015 Medications Active Medications SIG Qnty Indications Ordering Provide r Date Viagra 100mg Tablets 1 by mouth as needed Robert Alvarez MD 09/01/2019 Nyamyc [id number]/GM Powder apply to affected area twice per day as directed Robert Alvarez MD 09/01/2019 Clotrimazole/Betamethasone Dipropionate 1-0.05% Cream apply as needed twice a day, as directed Robert Alvarez MD 09/01/2019 Triamcinolone Acetonide 0.1% Cream apply to affected area as directed Rosaura Mark FNP 09/01/2019 Lyrica 150mg Capsules 1 by mouth two times a day Unknown 12/12/2018 Zofran 4mg Tablets 1 tablet every 8 hours when necessary for nausea Unknown 2018 Tylenol Extra Strength 500mg Table ts 2 by mouth as needed Unknown 06/11/2018 Colace 100mg Capsules 1 by mouth twice a day Unknown 06/11/2018 Atorvastatin Calcium 80mg Tablets 1 by mouth every night at bedtime 30tabs I25.10 Nilay Wahl 06/14/2017 Calcium Citrate + D3 [id number] Tablets 3 by mouth twice per day Unknown Omeprazole 40mg Capsules DR 1 by mouth every day Dereck Velasquez MD 01/22/2017 Metoprolol Tartrate 25mg Tablets 1 by mouth twice a day 180tabs R42 SOFYA Barnes 12/06/19 17 Vitamin B-12 500mcg Tablets 1 by mouth every day Unknown 12/04/2016 Multi Vitamin Tablets daily Unknown 12/04/2016 Amitriptyline HCL 25mg Tablets 1 by mouth every day at bedtime as needed Unknown 0 07/27/2016 Coq10 200mg Capsules 1 by mouth twice every day I25.10 Unknown 04/23/2016 Nitrostat 0.4mg Tablets Sub 1 sl every 5min x3 as needed for chest pain 30tabs I25.10 Leroy Triana MD 02/09/2016 Aspirin 81mg Tablets 1 by mouth every day Robert Alvarez MD 11/22/2015 Duloxetine HCL 60mg Caps DR Ferreira 1 by mouth every day Robert Alvarez MD 11/22/2015 Allopurinol 300mg Tablets 1 by mouth every day Robert Alvarez MD 11/22/2015 Osteo Bi-Flex Advanced Double Strength W ith Joint Shield Tablets 1 by mouth once a day Unknow n Immunizations Description No Information Available Vital Signs Date Vital Result Comment 09/02/2019 10:12am Weight 295.00 lb Home Weight 289lb Height 68 inches 5'8" BMI (Body Mass Index) 44.8 kg/m2 Heart Rate 65 /min BP Systolic Sitting 122 mmHg large cuff, Ra BP Diastolic Sitting 68 mmHg large cuff, Ra 12/13/2018 9:55am Weight 266.00 lb Home Weight 268lb Height 68 inches 5'8" BMI (Body Mass Index) 40.4 kg/m2 Heart Rate 87 /min BP Systolic Sitting 110 mmHg Large adult cuff/Ra BP Diastolic Sitting 66 mmHg Large adult cuff/Ra Results Test Acquired Date Facility Test Result H/L Range Note CBC without Differential 01/25/2020 [facility] ([facility])- - White Blood Count 10.1 4.1-11.0 Red Blood Count 3.88 Low 4.60-6.10 Platelets 192 150-450 Hemoglobin 12.6 Low 13.5-18.0 Hematocrit 37.6 Low 41.0-53.0 BMP 01/25/2020 [facility] ([facility])- - Calcium Ser/Plasma Mass/Vol 8.0 Sodium 145 Carbon Dioxide Ser/Plasm 23 Chloride Serum/Plasma 115 Potassium 3.8 Glucose 192 High 70-99 Blood Urea Nitrogen 17 7-24 Creatinine 1.29 0.80-1.30 G F R 56 Procedures Date Code Description Status 09/29/2019 97580 Treadmill/Pharmacological Monito ring Completed 09/29/2019 99175 Myocardial Perfusion Spect Multi ple Completed Medical Devices Description No Information Available Encounters Description No Information Available Assessments Date Code Description Provider 09/29/2019 I25.10 Atherosclerotic heart disease of [place] coronary artery with Stress Nuclear/Reg Treadmill Plan of Treatment Future Appointment(s):* 03/15/2020 10:45 am - PETER Meyer at Main Office 09/02/2019 - PETER [place]* I25.10 Atherosclerotic heart disease of [place] coronary artery with* Recommendations:* Please call the office with any exertional chest pain or shortness of breath. Please schedule stress test. * I11.0 Hypertensive heart disease with heart failure* Recommendations:* No medication changes were made today. * R94.31 Abnormal electrocardiogram [ECG] [EKG]* Recommendations:* No significant change. No further workup required. * E66.8 Other obesity * Z71.3 Dietary counseling and surveillance* Recommendations:* Recommend adopting a more whole foods, plant-based diet in addition to moderate exercise a minimum of 30 minutes 6 days a week. In order to optimize cardiovascular health please be conscious of processed foods, alcohol (no more than two dr inks a day for men and one drink a day for women), salt (<2000 mg/d), oils, saturated fat/animal products, and highly refined carbohydrates such as breads, pastas, and sweets. * All * Follow up:* Follow up in 6 months. Functional Status Functional Condition Comment Date Status Independent with all ADL's Activ e Mental Status Description No Information Available Referrals Refer to Dr Reason for Referral Status Appt Date Leroy Triana MD [facility] AUTH EMR-EXPIRES 11/02/19. [place] Created [address] [facility], [facility] [place] [id number] [phone]
--- OUTSIDE RECORDS SUMMARY | 2020-04-21 16:25 | CCD | Continuity of Care Document ---
Author Author Jose GEIEGR [place] Organization Unknown Address [id number] [place] [address] [place] [address] Phone [phone] Care Team Providers Care Screen Tacker Name Role Phone Robert Alvarez MD AUTM [phone] Sandra Leong MD AUTM [phone] Dereck Velasquez MD AUTM [phone] An Artis MD AUTM Rosaura Mark AUTM [phone] Problems Active Problems Provider Date Impending infarction [...] Triana MD Onset: 07/28/2016 Dizziness and giddiness Rhina Paredes, MANDI-C Onset: 017 Patient post percutaneous transluminal coronary angiop PETER Clement Onset: 06/11/2017 Mixed hyperlipidemia PETER [place] Onset: [...] SIG Qnty Indications Ordering Provide r Date Blood Pressure Monitor Automatic/Arm Device monitor blood pressure twice daily 1units I11.0 Leroy Triana MD 03/15/2020 Tamsulosin HCL 0.4mg Capsules 1 by mouth every day Robert Alvarez MD 03/14/2020 Viagra 100mg Tablets 1 by mouth as needed Robert Alvarez MD 09/01/2019 Nyamyc [id number]/GM Powder apply to affected area twice per [...] Nilay Wahl 06/14/2017 Calcium Citrate + D3 [id number] Tablets 3 by mouth twice per day Unknown Omeprazole 40mg Capsules DR 1 by mouth every day Dereck Velasquez MD 01/22/2017 Metoprolol Tartrate 25mg Tablets 1 by mouth twice a day 180tabs R42 MANDI Barnes-C 12/06/19 17 Vitamin B-12 500mcg Tablets 1 [...] Leroy Triana MD 02/09/[address] 1 by mouth every day Robert Alvarez MD 11/22/2015 Duloxetine HCL 60mg Caps DR Part 1 by mouth every day Robert Alvarez MD 11/22/2015 Allopurinol 300mg Tablets 1 by mouth every day Robert Alvarez MD 11/22/2015 Osteo Bi-Flex Advanced Double Strength W ith Joint Shield Tablets 1 by mouth once a day Unknow n Immunizations Description No Information Available Vital Signs Date Vital Result Comment 03/15/2020 10:46am Weight 294.00 lb Home Weight 290lb Height 68 inches 5'8" BMI (Body Mass Index) 44.7 kg/m2 09/02/2019 10:12am Weight 295.00 lb Home Weight 289lb Height 68 inches 5'8" BMI (Body Mass Index) 44.8 kg/m2 Heart Rate 65 /min BP Systolic Sitting 122 mmHg large cuff, Ra BP Diastolic Sitting 68 mmHg large cuff, Ra Results Test Acquired Date Facility Test Result [...] 56 Procedures Date Code Description Status 09/29/2019 89728 Treadmill/Pharmacological Monito ring Completed 09/29/2019 87830 Myocardial Perfusion Spect Multi ple Completed Medical Devices Description No Information Available Encounters Description No Information Available Assessments Date Code Description Provider 03/15/2020 I25.10 Atherosclerotic heart disease of [place] coronary artery with PETER Meyer 03/15/2020 I11.0 Hypertensive heart disease with heart failure PETER Meyer 03/15/2020 R94.31 Abnormal electrocardiogram [ECG] [EKG] PETER Meyer 03/15/2020 E66.8 Other obesity PETER Moore Cha, se 03/15/2020 Z71.3 Dietary counseling and surveilla nce PETER Meyer 09/29/2019 I25.10 Atherosclerotic heart disease of [place] coronary artery with Stress Nuclear/Reg Treadmill Plan of Treatment 03/15/2020 - PETER Meyer* I25.10 Atherosclerotic heart disease of [place] coronary artery with * I11.0 Hypertensive heart disease with heart failure* New Medication:* Blood Pressure Monitor Automatic/Arm - monitor blood pressure twice daily * R94.31 Abnormal electrocardiogram [ECG] [EKG] * E66.8 Other obesity * Z71.3 Dietary counseling and surveillance * All * Follow up:* Follow up in 6 months Functional Status Functional Condition Comment Date Status Independent with all ADL's Activ e Mental Status Description No Information Available Referrals Refer to Reason for Referral Status Appt Date Leroy Triana MD [facility] AUTH EMR-EXPIRES 11/02/19. [place] Created [address] [facility] [id number] [phone]
--- OUTSIDE RECORDS SUMMARY | 2020-04-21 16:25 | CCD | Continuity of Care Document ---
Author Author Jose MILLIGAN MD Organization Unknown Address [address] [place] [address] [address] [place] [address] Phone [phone] Care Team Providers Care Territory Development Manager Name Role Phone Damian Matson M.D. AUTM [phone] Robert Alvarez M.D. AUTM [phone] Leroy Triana M.D. AUTM [phone] [facility] Direct-Pat AUTM Unavailable Problems Active Problems Provider [...] Chest pain Onset: 11/23/2015 Coronary arteriosclerosis in [place] artery Onset: 11/25/2015 Hypertensive disorder Onset: [...] Overview: Added automatically from request for surgery [id number] Social History Type Date Description Comments Sex [...] by mouth twice a day 14tabs Sarthak Milligan MD 03/08/2020 Oxycodone-Acetaminophen 5-325mg Ta blets take [...] for pain Unk nown Oyster Shell Calcium/D [id number] Tablets Take 3 tablets by mouth 2 [...] Unknown Zofran 4mg Tablets prn Unknown Nystatin 408860Sfkt/GM Powder Apply 1 application topically 2 (two) times a day Unknow n Duloxetine HCL 60mg Caps DR Part Take 60 mg by mouth daily Unknown [...] Negative Ua Clarity Not Entered Ua Specific [place] 1.015 1.003-1.030 Ua PH 5.5 5.0-7.5 Ua Bilirubin Negative Ua Urobilinogen 0.2 E.U./dL 0.0-1.0 Poct glucose 02/25/2020 N2N/CCD Import Glucose, Poc 140 mg/dL High 70 - 99 1 Stone Analysis 02/25/[address] [id number] [phone] Composition See Note 2 Mass 166 mg Calculi Number 1 Calculi Size > 9 3 Calculi Description See Note 4 Poc Nova Glu 02/25/[address] [address] [phone] Poc Nova Glu 140 mg/dL High (70-99) 5 230 Ua Routine 02/02/2020 [facility] REF TO ADDRESS ON ORDER FOR (372)- - Ua Glucose Negative Ua Protein Negative Ua Nitrite Negative Ua Leuko Small Ua Blood Moderate Ua Color Not Entered Ua Ketones Negative Ua Clarity Not Entered Ua Specific [place] 1.015 1.003-1.030 Ua PH 5.5 5.0-7.5 Ua Bilirubin Negative Ua Urobilinogen 0.2 E.U./dL 0.0-1.0 CBC Without Diff 01/25/2020 [facility] [address] [place] [address] [phone] WBC 10.1 10*3/uL (4.1-11.0) RBC 3.88 10*6/uL Low (4.60-6.10) HGB 12.6 g/dL Low (13.5-18.0) HCT 37.6 % Low (41.0-53.0) MCV 96.8 fL High (80.0-95.0) MCH 32.3 pg High (27.0-32.0) MCHC 33.4 g/dL (32.0-36.0) RDW 14.2 % (10.5-14.5) PLT 192 10*3/uL (150-450) MPV 8.8 fL (7.1-10.7) Basic Metabolic Panel 01/25/2020 [facility] [address] [place] [address] [phone] Sodium 145 mmol/L (136-145) Potassium 3.8 mmol/L [...] <SEE NOTE> 6 CBC Without Diff 01/24/2020 [facility] [address] [place] [address] [phone] WBC 11.8 10*3/uL High (4.1-11.0) RBC 4.04 10*6/uL Low (4.60-6.10) HGB 12.9 g/dL Low (13.5-18.0) HCT 39.2 % Low (41.0-53.0) MCV 97.1 fL High (80.0-95.0) MCH 31.8 pg (27.0-32.0) MCHC 32.8 g/dL (32.0-36.0) RDW 14.1 % (10.5-14.5) PLT 152 10*3/uL (150-450) MPV 9.0 fL (7.1-10.7) Basic Metabolic Panel 01/24/2020 [facility] [address] [place], [place] [id number] [phone] Sodium 141 mmol/L (136-145) Potassium 3.7 mmol/L [...] NOTE> 7 Laboratory test finding 01/23/[address] [address] [phone] Troponin I <0.05 ng/mL (<0.05) 8 Basic Metabolic Panel 01/23/[address] [address] [phone] Sodium 138 mmol/L (136-145) Potassium 3.6 mmol/L [...] NOTE> 9 CBC Without Diff 01/23/[address] [address] [phone] WBC 14.4 10*3/uL High (4.1-11.0) RBC 3.93 10*6/uL Low (4.60-6.10) HGB 12.4 g/dL Low (13.5-18.0) HCT 37.8 % Low (41.0-53.0) MCV 96.3 fL High (80.0-95.0) MCH 31.6 pg (27.0-32.0) MCHC 32.8 g/dL (32.0-36.0) RDW 14.4 % (10.5-14.5) PLT 161 10*3/uL (150-450) MPV 9.1 fL (7.1-10.7) CBC Without Diff 01/21/2020 [facility] [address] [place] [address] [phone] WBC 10.5 10*3/uL (4.1-11.0) RBC 4.04 10*6/uL Low (4.60-6.10) HGB 12.9 g/dL Low (13.5-18.0) HCT 39.0 % Low (41.0-53.0) MCV 96.6 fL High (80.0-95.0) MCH 31.9 pg (27.0-32.0) MCHC 33.0 g/dL (32.0-36.0) RDW 14.3 % (10.5-14.5) PLT 146 10*3/uL Low (150-450) MPV 8.9 fL (7.1-10.7) Basic Metabolic Panel 01/21/2020 [facility] [address] [place] [address] [phone] Sodium 142 mmol/L (136-145) Potassium 4.0 mmol/L [...] REF TO DR ADDRESS ON ORDER FOR (288)- - Ua Glucose Negative Ua Protein Negative Ua Nitrite Positive Ua Leuko Small Ua Blood Moderate Ua Color Not Entered Ua Ketones Negative Ua Clarity Not Entered Ua Specific [place] 1.020 1.003-1.030 Ua PH 5.5 5.0-7.5 Ua Bilirubin Negative Ua Urobilinogen 0.2 E.U./dL 0.0-1.0 Laboratory test finding 01/20/2020 [facility] [place] [address] [phone] Urine Culture SPECIMEN DESCRIP <SEE NOTE> 11, 12 Coronavirus By PCR 01/20/[address] [address] [phone] Specimen Description NASOPHARYNGEAL Covid19 Result NOT DETECTED (Ndet) 13 Comment THE U.[place] FDA HAS <SEE NOTE> 14 First Test UNKNOWN Employed In thcare UNKNOWN Symptomatic UNKNOWN Date Of Sympt Onset NOT APPLICABLE Hospitalized UNKNOWN Icu UNKNOWN Congregate Care Set UNKNOWN NO Laboratory test finding 01/20/[address] [address] [phone] Urine Culture SPECIMEN DESCRIP <SEE NOTE> 15 Urine Micro Only 01/20/[address] [address] [phone] Urine WBC * 50-100 [HPF] (0-5) Urine RBC * 25-50 [HPF] (0-2) Epithelial Cells 2+ [HPF] Bacteria 1+ [HPF] Urinalysis RFX 01/20/[address] [address] [phone] Color YELLOW Appearance CLOUDY Spec Grav Urine 1.017 (1.003-1.030) PH Urine 5.5 (5.0-7.5) Leuk Esterase 2+ Abnormal (Neg) Nitrite Urine POSITIVE Abnormal (Neg) Protein Urine NEGATIVE (Neg) Glucose Urine NEGATIVE (Neg) Ketone Urine NEGATIVE (Neg) Urobilinogen 1.0 mg/dL (0-1.0) Bilirubin Urine NEGATIVE (Neg) Blood/HGB Urine 3+ Abnormal (Neg) Basic Metabolic Panel 01/20/[address] [address] [phone] Sodium 142 mmol/L (136-145) Potassium 4.7 mmol/L [...] Diff 01/20/2020 [facility] [address] [place] [address] [phone] WBC 15.5 10*3/uL High (4.1-11.0) RBC 4.47 10*6/uL Low (4.60-6.10) HGB 14.3 g/dL (13.5-18.0) HCT 43.4 % (41.0-53.0) MCV 97.1 fL High (80.0-95.0) MCH 32.0 pg (27.0-32.0) MCHC 32.9 g/dL (32.0-36.0) RDW 14.5 % (10.5-14.5) PLT 172 10*3/uL (150-450) MPV 9.3 fL (7.1-10.7) 1 PERFORMED BY [facility] 2 Calculi composed primarily of: [...] composition determined by FTIR analysis. Performed By: [facility] [address] [place] [address] Professor Of Business Administration: Ny Mckeon MD 3 Unit: mm 4 Specimen consists of a single, large, brown, irregular calculus. 5 PERFORMED BY [facility] 6 -- NORMAL KIDNEY FUNCTION [...] 01/22/20 (Thr Jan 21) 04:27 PM SOLEDAD KHANNA Admitted to [facility] for IV antibiotics 13 THIS ASSAY AMPLIFIES [...] THE VIRUS THAT CAUSES COVID-19. EMAILED TO [facility] AT [address] 393148 [place] [address]. 15 SPECIMEN DESCRIPTION MIDSTREAM URINE,CLEAN CATCH CULTURE [...] PERFORMED UPON REQUEST. VANCOMYCIN 2 SUSCEPTIBLE TRIMETH/SULFA /152 RESISTANT CIPROFLOXACIN >=8 RESISTANT 16 -- NORMAL KIDNEY FUNCTION OR MILD DISEASE - GFR >OR= 60 CHRONIC KIDNEY DISEASE - GFR 15 - 59 RENAL FAILURE - GFR <15 -- Est. GFR calculation based on the MDRD study equation, which assumes a steady state for creatinine. Est. GFR should not be used for medication dosing. Procedures Date Code Description Status 03/08/2020 98296 Cystourethroscopy Simple With Re moval Foreign Body Or Stent Completed 02/25/2020 27334 Cystourethroscopy, With Removal Or Manipulation Of Calculus Completed 02/25/2020 98559 Cystourethroscopy, With Insertio n Of Indwelling Ureteral Stent Completed 01/20/2020 44534 Retrograde,Pyelogram,Urography I nterpretation Completed 01/20/[address] Abdomen/Pelvis Wo Contrast Co mpleted 01/20/2020 24515 Cystourethroscopy, With Insertio n Of Indwelling Ureteral Stent Completed 09/22/2019 06361 Ultrasound Retro Renal Real Time With Image Tech Comp Completed 09/22/2019 66891 Ultrasound Retro Renal Real Time With Image Tech Comp Completed 03/26/2012 49690001 Colonoscopy Completed Medical Devices Active Inactive Description Device Identifier Assigning Authority 11/05/2017 Abdominal hernia surgical mesh c omposite-polymer ()[id number] [facility] 11/05/2017 Abdominal hernia surgical mesh c omposite-polymer ()[id number] [facility] Encounters Type Date Location Provider Dx Diagnosis Office Visit 02/02/2020 12:40p [facility] Sarthak Milligan MD N20.1 Calculus of ureter Office Visit 09/22/2019 2:30p [facility] Soledad Khanna NP N20.0 Calculus of kidney R82.991 Hypocitraturia R82.992 Hyperoxaluria Z12.5 Encounter for screening for malignant neoplasm of prostate N52.9 Male erectile dysfunction, u nspecified Assessments Date Code Description Provider 03/08/2020 N20.1 Calculus of ureter Sarthak Ruby swanson MD 03/08/2020 Z12.5 Encounter for screening for gavin gnant neoplasm of prostate Sarthak Milligan MD 02/25/2020 N20.1 Calculus of ureter Sarthak Ruby swanson MD 02/02/2020 N20.1 Calculus of ureter Sarthak Ruby swanson MD 01/23/2020 N39.0 Urinary tract infection, site no t specified Linnette Monika,BATTERY STARTER 01/23/2020 R50.9 Fever, unspecified Linnette Monika,FN P 01/21/2020 N20.1 Calculus of ureter Linnette Frank, P 01/21/2020 N39.0 Urinary tract infection, site no t specified Linnette Monika,BATTERY STARTER 01/20/2020 N13.2 Hydronephrosis with renal and ur eteral calculous obstruction Sarthak Milligan MD 01/20/2020 N20.0 Calculus of kidney Sarthak Ruby swanson MD 01/20/2020 N20.1 Calculus of ureter Raji Moreira MD 01/20/2020 N13.2 Hydronephrosis with renal and ur eteral calculous obstruction Soledad Khanna NP 09/22/2019 N20.0 Calculus of kidney Sarthak Ruby swanson MD 09/22/2019 N20.0 Calculus of kidney [facility] 09/22/2019 N20.0 Calculus of kidney Soledad schreiber NP 09/22/2019 R82.991 Hypocitraturia Soledad Khanna NP 09/22/2019 R82.992 Hyperoxaluria Soledad Khanna NP 09/22/2019 Z12.5 Encounter for screening for gavin gnant neoplasm of prostate Soledad Khanna NP 09/22/2019 N52.9 Male erectile dysfunction, unspe cified Soledad Khanna NP Plan of Treatment Future Appointment(s):* 03/08/2021 1:00 pm - Soledad Khanna NP at [facility] 03/08/2020 - Sarthak Milligan MD* N20.1 Calculus of ureter* New Xrays:* [...] Reason for Referral Status Appt Date Sarthak Milligan M.D. Per [employer] [facility]: [facility] CoPay :$300 - [facility] SURGICAL COPAY 300 SURG Final CoPay For This Member= $300.0 Per [employer]: CPT 32505,34757,56585,52 353,60648,24434,78226- authorization required. Submitted authorization for above codes. The request for services detailed below have been approved Reference Number: [id number] Authorization Number: [id number] Valid 02/25/20-04/25/20 02/17/20 ab Created [facility] [address] [place] [id number] [phone] Sarthak Milligan M.D. Per [facility]/[employer] online CPT: 89842 Description: CT ABDOMEN & PELVIS W/O Auth: [id number] Review Date: 01/20/2020 9:16:13 AM Expiration Date: 03/05/2020 Status: Your case has been Approved. 01/20/2020 [place] Created [facility] [address] [place] [phone]
--- OUTSIDE RECORDS SUMMARY | 2020-04-21 16:25 | CCD | Continuity of Care Document ---
Author Author Jose MILLIGAN MD Organization Unknown Address [address] [place] [address] [address] [place] [address] Phone [phone] Care Team Providers Care Research Professor Name Role Phone Damian Matson M.D. AUTM [phone] Robert Avlarez M.D. AUTM [phone] Leroy Triana M.D. AUTM [phone] [facility] Direct-Pat AUTM Unavailable Problems Active Problems Provider [...] Chest pain Onset: 11/23/2015 Coronary arteriosclerosis in [place] artery Onset: 11/25/2015 Hypertensive disorder Onset: 11/25/2015 [...] Overview: Added automatically from request for surgery [id number] Social History Type Date Description Comments Sex [...] for pain Unk nown Oyster Shell Calcium/D [id number] Tablets Take 3 tablets by mouth 2 [...] Unknown Zofran 4mg Tablets prn Unknown Nystatin [id number]/GM Powder Apply 1 application topically 2 (two) [...] Negative Ua Clarity Not Entered Ua Specific [place] 1.015 1.003-1.030 Ua PH 5.5 5.0-7.5 Ua Bilirubin Negative Ua Urobilinogen 0.2 E.U./dL 0.0-1.0 Poct glucose 02/25/2020 N2N/CCD Import Glucose, Poc 140 mg/dL High 70 - 99 1 Stone Analysis 02/25/[address] [id number] [phone] Composition See Note 2 Mass 166 mg Calculi Number 1 Calculi Size > 9 3 Calculi Description See Note 4 Poc Nova Glu 02/25/[address] [address] [phone] Poc Nova Glu 140 mg/dL High (70-99) 5 230 Ua Routine 02/02/2020 [facility] REF TO ADDRESS ON ORDER FOR (473)- - Ua Glucose Negative Ua Protein Negative Ua Nitrite Negative Ua Leuko Small Ua Blood Moderate Ua Color Not Entered Ua Ketones Negative Ua Clarity Not Entered Ua Specific [place] 1.015 1.003-1.030 Ua PH 5.5 5.0-7.5 Ua Bilirubin Negative Ua Urobilinogen 0.2 E.U./dL 0.0-1.0 CBC Without Diff 01/25/2020 [facility] [address] [place] [address] [phone] WBC 10.1 10*3/uL (4.1-11.0) RBC 3.88 10*6/uL Low (4.60-6.10) HGB 12.6 g/dL Low (13.5-18.0) HCT 37.6 % Low (41.0-53.0) MCV 96.8 fL High (80.0-95.0) MCH 32.3 pg High (27.0-32.0) MCHC 33.4 g/dL (32.0-36.0) RDW 14.2 % (10.5-14.5) PLT 192 10*3/uL (150-450) MPV 8.8 fL (7.1-10.7) Basic Metabolic Panel 01/25/2020 [facility] [address] [place] [address] [phone] Sodium 145 mmol/L (136-145) Potassium 3.8 mmol/L [...] Diff 01/24/2020 [facility] [address] [place] [address] [phone] WBC 11.8 10*3/uL High (4.1-11.0) RBC 4.04 10*6/uL Low (4.60-6.10) HGB 12.9 g/dL Low (13.5-18.0) HCT 39.2 % Low (41.0-53.0) MCV 97.1 fL High (80.0-95.0) MCH 31.8 pg (27.0-32.0) MCHC 32.8 g/dL (32.0-36.0) RDW 14.1 % (10.5-14.5) PLT 152 10*3/uL (150-450) MPV 9.0 fL (7.1-10.7) Basic Metabolic Panel 01/24/2020 [facility] [address] [place], [place] [id number] [phone] Sodium 141 mmol/L (136-145) Potassium 3.7 mmol/L [...] <SEE NOTE> 7 Laboratory test finding 01/23/[address] [address] [phone] Troponin I <0.05 ng/mL (<0.05) 8 Basic Metabolic Panel 01/23/[address] [address] [phone] Sodium 138 mmol/L (136-145) Potassium 3.6 mmol/L [...] <SEE NOTE> 9 CBC Without Diff 01/23/[address] [address] [phone] WBC 14.4 10*3/uL High (4.1-11.0) RBC 3.93 10*6/uL Low (4.60-6.10) HGB 12.4 g/dL Low (13.5-18.0) HCT 37.8 % Low (41.0-53.0) MCV 96.3 fL High (80.0-95.0) MCH 31.6 pg (27.0-32.0) MCHC 32.8 g/dL (32.0-36.0) RDW 14.4 % (10.5-14.5) PLT 161 10*3/uL (150-450) MPV 9.1 fL (7.1-10.7) CBC Without Diff 01/21/2020 [facility] [address] [place] [address] [phone] WBC 10.5 10*3/uL (4.1-11.0) RBC 4.04 10*6/uL Low (4.60-6.10) HGB 12.9 g/dL Low (13.5-18.0) HCT 39.0 % Low (41.0-53.0) MCV 96.6 fL High (80.0-95.0) MCH 31.9 pg (27.0-32.0) MCHC 33.0 g/dL (32.0-36.0) RDW 14.3 % (10.5-14.5) PLT 146 10*3/uL Low (150-450) MPV 8.9 fL (7.1-10.7) Basic Metabolic Panel 01/21/2020 [facility] [address] [place] [address] [phone] Sodium 142 mmol/L (136-145) Potassium 4.0 mmol/L [...] REF TO DR ADDRESS ON ORDER FOR (124)- - Ua Glucose Negative Ua Protein Negative Ua Nitrite Positive Ua Leuko Small Ua Blood Moderate Ua Color Not Entered Ua Ketones Negative Ua Clarity Not Entered Ua Specific [place] 1.020 1.003-1.030 Ua PH 5.5 5.0-7.5 Ua Bilirubin Negative Ua Urobilinogen 0.2 E.U./dL 0.0-1.0 Laboratory test finding 01/20/2020 [facility] [address] [phone] Urine Culture SPECIMEN DESCRIP <SEE NOTE> 11, 12 Coronavirus By PCR 01/20/[address] [address] [phone] Specimen Description NASOPHARYNGEAL Covid19 Result NOT DETECTED (Ndet) 13 Comment THE U.S. FDA HAS <SEE NOTE> 14 First Test UNKNOWN Employed In thcare UNKNOWN Symptomatic UNKNOWN Date Of Sympt Onset NOT APPLICABLE Hospitalized UNKNOWN Icu UNKNOWN Congregate Care Set UNKNOWN NO Laboratory test finding 01/20/[address] [address] [phone] Urine Culture SPECIMEN DESCRIP <SEE NOTE> 15 Urine Micro Only 01/20/[address] [address] [phone] Urine WBC * 50-100 [HPF] (0-5) Urine RBC * 25-50 [HPF] (0-2) Epithelial Cells 2+ [HPF] Bacteria 1+ [HPF] Urinalysis RFX 01/20/[address] [address] [phone] Color YELLOW Appearance CLOUDY Spec Grav Urine 1.017 (1.003-1.030) PH Urine 5.5 (5.0-7.5) Leuk Esterase 2+ Abnormal (Neg) Nitrite Urine POSITIVE Abnormal (Neg) Protein Urine NEGATIVE (Neg) Glucose Urine NEGATIVE (Neg) Ketone Urine NEGATIVE (Neg) Urobilinogen 1.0 mg/dL (0-1.0) Bilirubin Urine NEGATIVE (Neg) Blood/HGB Urine 3+ Abnormal (Neg) Basic Metabolic Panel 01/20/[address] [address] [phone] Sodium 142 mmol/L (136-145) Potassium 4.7 mmol/L [...] Diff 01/20/2020 [facility] [address] [place] [address] [phone] WBC 15.5 10*3/uL High (4.1-11.0) RBC 4.47 10*6/uL Low (4.60-6.10) HGB 14.3 g/dL (13.5-18.0) HCT 43.4 % (41.0-53.0) MCV 97.1 fL High (80.0-95.0) MCH 32.0 pg (27.0-32.0) MCHC 32.9 g/dL (32.0-36.0) RDW 14.5 % (10.5-14.5) PLT 172 10*3/uL (150-450) MPV 9.3 fL (7.1-10.7) 1 PERFORMED BY [facility] 2 Calculi composed primarily [...] composition determined by FTIR analysis. Performed By: [facility] [address] [place] [address] Garnishment Specialist: Ny Mckeon MD 3 Unit: mm 4 Specimen consists of a single, large, brown, irregular calculus. 5 PERFORMED BY [facility] 6 -- NORMAL KIDNEY [...] 21) 04:27 PM SOLEDAD KHANNA Admitted to [facility] for IV antibiotics 13 THIS ASSAY AMPLIFIES [...] THE VIRUS THAT CAUSES COVID-19. EMAILED TO [facility] AT [address] [place] [address] [place] [address]. 15 SPECIMEN DESCRIPTION MIDSTREAM URINE,CLEAN CATCH CULTURE [...] dosing. Procedures Date Code Description Status 03/08/2020 96224 Cystourethroscopy Simple With Re moval Foreign Body Or Stent Completed 02/25/2020 98024 Cystourethroscopy, With Removal Or Manipulation Of Calculus Completed 02/25/2020 89028 Cystourethroscopy, With Insertio n Of Indwelling Ureteral Stent Completed 01/20/2020 01559 Retrograde,Pyelogram,Urography I nterpretation Completed 01/20/[address] Abdomen/Pelvis Wo Contrast Co mpleted 01/20/2020 31924 Cystourethroscopy, With Insertio n Of Indwelling Ureteral Stent Completed 09/22/2019 70212 Ultrasound Retro Renal Real Time With Image Tech Comp Completed 09/22/2019 52032 Ultrasound Retro Renal Real Time With Image Tech Comp Completed 03/26/2012 16185848 Colonoscopy Completed Medical Devices Active Inactive Description Device Identifier Assigning Authority 11/05/2017 Abdominal hernia surgical mesh c omposite-polymer ()[id number] [facility] 11/05/2017 Abdominal hernia surgical mesh c omposite-polymer ()[id number] [facility] Encounters Type Date Location Provider Dx Diagnosis Office Visit 02/02/2020 12:40p [facility] Sarthak Milligan MD N20.1 Calculus of ureter Office Visit 09/22/2019 2:30p [facility] Soledad Khanna NP N20.0 Calculus [...] tract infection, site no t specified Linnette Monika,REDEYE GUNNER 01/23/2020 R50.9 Fever, unspecified Linnette Monika,FN P 01/21/2020 N20.1 Calculus of ureter Linnette Frank, P 01/21/2020 N39.0 Urinary tract infection, site no t specified Linnette Monika,REDEYE GUNNER 01/20/2020 N13.2 Hydronephrosis with renal and ur eteral calculous obstruction Sarthak Milligan MD 01/20/2020 N20.0 Calculus of kidney Sarthak Ruby swanson MD 01/20/2020 N20.1 Calculus of ureter Raji Moreira MD 01/20/2020 N13.2 Hydronephrosis with renal and ur eteral calculous obstruction Soledad Khanna NP 09/22/2019 N20.0 Calculus of kidney Sarthak Ruby swanson MD 09/22/2019 N20.0 Calculus of kidney [facility] 09/22/2019 N20.0 Calculus of kidney Soledad schreiber NP 09/22/2019 R82.991 Hypocitraturia Soledad Khanna NP 09/22/2019 R82.992 Hyperoxaluria Soledad Khanna NP 09/22/2019 Z12.5 Encounter for screening for gavin gnant neoplasm of prostate Soledad Khanna NP 09/22/2019 N52.9 Male erectile dysfunction, unspe cified Soledad Khanna NP Plan of Treatment Future Appointment(s):* 03/08/2021 1:00 pm - Soledad Khanna NP at [facility]/ [facility] 03/08/2020 - Sarthak Milligan MD* [...] Status Appt Date Sarthak Milligan M.D. Per [employer]: Hospit al Outpatient In Network CoPay :$300 - [facility] SURGICAL COPAY 300 SURG Final CoPay For This Member= $300.0 Per [employer]: CPT 28106,97603,11509,52 353,41602,01594,66201- authorization required. Submitted authorization for above codes. The request for services detailed below have been approved Reference Number: [id number] Authorization Number: [id number] Valid 02/25/20-04/25/20 02/17/20 ab Created [facility] [address] [place] [phone] Sarthak Milligan M.D. Per [facility]/[employer] online CPT: 07476 Description: CT ABDOMEN & PELVIS W/O Auth: [id number] Review Date: 01/20/2020 9:16:13 AM Expiration Date: 03/05/2020 Status: Your case has been Approved. 01/20/2020 [place] Created [facility] [address] [place] [phone]
--- OUTSIDE RECORDS SUMMARY | 2020-04-21 16:25 | CCD | Continuity of Care Document ---
Author Author Jose MILLIGAN MD Organization Unknown Address [address] [place] [address] [address] [place] [address] Phone [phone] Care Team Providers Care Bisque Cleaner Name Role Phone Damian Matson M.D. AUTM [phone] Robert Alvarez M.D. AUTM [phone] Leroy Triana M.D. AUTM [phone] [facility] Direct-Pat AUTM Unavailable Problems Active Problems [...] Chest pain Onset: 11/23/2015 Coronary arteriosclerosis in [place] artery Onset: 11/25/2015 Hypertensive disorder Onset: 11/25/2015 [...] Overview: Added automatically from request for surgery [id number] Social History Type Date Description Comments Sex [...] for pain Unk nown Oyster Shell Calcium/D [id number] Tablets Take 3 tablets by mouth 2 [...] Unknown Zofran 4mg Tablets prn Unknown Nystatin [id number]/GM Powder Apply 1 application topically 2 (two) [...] Negative Ua Clarity Not Entered Ua Specific [place] 1.015 1.003-1.030 Ua PH 5.5 5.0-7.5 Ua Bilirubin Negative Ua Urobilinogen 0.2 E.U./dL 0.0-1.0 Poct glucose 02/25/2020 N2N/CCD Import Glucose, Poc 140 mg/dL High 70 - 99 1 Stone Analysis 02/25/[address] [id number] [phone] Composition See Note 2 Mass 166 mg Calculi Number 1 Calculi Size > 9 3 Calculi Description See Note 4 Poc Nova Glu 02/25/[address] [address] [phone] Poc Nova Glu 140 mg/dL High (70-99) 5 230 Ua Routine 02/02/2020 [facility] REF TO ADDRESS ON ORDER FOR (196)- - Ua Glucose Negative Ua Protein Negative Ua Nitrite Negative Ua Leuko Small Ua Blood Moderate Ua Color Not Entered Ua Ketones Negative Ua Clarity Not Entered Ua Specific [place] 1.015 1.003-1.030 Ua PH 5.5 5.0-7.5 Ua Bilirubin Negative Ua Urobilinogen 0.2 E.U./dL 0.0-1.0 CBC Without Diff 01/25/2020 [facility] [address] [place] [address] [phone] WBC 10.1 10*3/uL (4.1-11.0) RBC 3.88 10*6/uL Low (4.60-6.10) HGB 12.6 g/dL Low (13.5-18.0) HCT 37.6 % Low (41.0-53.0) MCV 96.8 fL High (80.0-95.0) MCH 32.3 pg High (27.0-32.0) MCHC 33.4 g/dL (32.0-36.0) RDW 14.2 % (10.5-14.5) PLT 192 10*3/uL (150-450) MPV 8.8 fL (7.1-10.7) Basic Metabolic Panel 01/25/2020 [facility] [address] [place] [address] [phone] Sodium 145 mmol/L (136-145) Potassium 3.8 mmol/L [...] <SEE NOTE> 6 CBC Without Diff 01/24/2020 [facility] [address] [place] [address] [phone] WBC 11.8 10*3/uL High (4.1-11.0) RBC 4.04 10*6/uL Low (4.60-6.10) HGB 12.9 g/dL Low (13.5-18.0) HCT 39.2 % Low (41.0-53.0) MCV 97.1 fL High (80.0-95.0) MCH 31.8 pg (27.0-32.0) MCHC 32.8 g/dL (32.0-36.0) RDW 14.1 % (10.5-14.5) PLT 152 10*3/uL (150-450) MPV 9.0 fL (7.1-10.7) Basic Metabolic Panel 01/24/2020 [facility] [address] [place], [place] [address]250 [phone] Sodium 141 mmol/L (136-145) Potassium 3.7 mmol/L [...] <SEE NOTE> 7 Laboratory test finding 01/23/[address] [address] [phone] Troponin I <0.05 ng/mL (<0.05) 8 Basic Metabolic Panel 01/23/[address] [address] [phone] Sodium 138 mmol/L (136-145) Potassium 3.6 mmol/L [...] <SEE NOTE> 9 CBC Without Diff 01/23/[address] [address] [phone] WBC 14.4 10*3/uL High (4.1-11.0) RBC 3.93 10*6/uL Low (4.60-6.10) HGB 12.4 g/dL Low (13.5-18.0) HCT 37.8 % Low (41.0-53.0) MCV 96.3 fL High (80.0-95.0) MCH 31.6 pg (27.0-32.0) MCHC 32.8 g/dL (32.0-36.0) RDW 14.4 % (10.5-14.5) PLT 161 10*3/uL (150-450) MPV 9.1 fL (7.1-10.7) CBC Without Diff 01/21/2020 [facility] [address] [place] [address] [phone] WBC 10.5 10*3/uL (4.1-11.0) RBC 4.04 10*6/uL Low (4.60-6.10) HGB 12.9 g/dL Low (13.5-18.0) HCT 39.0 % Low (41.0-53.0) MCV 96.6 fL High (80.0-95.0) MCH 31.9 pg (27.0-32.0) MCHC 33.0 g/dL (32.0-36.0) RDW 14.3 % (10.5-14.5) PLT 146 10*3/uL Low (150-450) MPV 8.9 fL (7.1-10.7) Basic Metabolic Panel 01/21/2020 [facility] [address] [place] [address] [phone] Sodium 142 mmol/L (136-145) Potassium 4.0 mmol/L [...] REF TO DR ADDRESS ON ORDER FOR (982)- - Ua Glucose Negative Ua Protein Negative Ua Nitrite Positive Ua Leuko Small Ua Blood Moderate Ua Color Not Entered Ua Ketones Negative Ua Clarity Not Entered Ua Specific [place] 1.020 1.003-1.030 Ua PH 5.5 5.0-7.5 Ua Bilirubin Negative Ua Urobilinogen 0.2 E.U./dL 0.0-1.0 Laboratory test finding 01/20/2020 [facility] [address] [phone] Urine Culture SPECIMEN DESCRIP <SEE NOTE> 11, 12 Coronavirus By PCR 01/20/[address] [address] [phone] Specimen Description NASOPHARYNGEAL Covid19 Result NOT DETECTED (Ndet) 13 Comment THE U.S. FDA HAS <SEE NOTE> 14 First Test UNKNOWN Employed In thcare UNKNOWN Symptomatic UNKNOWN Date Of Sympt Onset NOT APPLICABLE Hospitalized UNKNOWN Icu UNKNOWN Congregate Care Set UNKNOWN NO Laboratory test finding 01/20/[address] [address] [phone] Urine Culture SPECIMEN DESCRIP <SEE NOTE> 15 Urine Micro Only 01/20/[address] [address] [phone] Urine WBC * 50-100 [HPF] (0-5) Urine RBC * 25-50 [HPF] (0-2) Epithelial Cells 2+ [HPF] Bacteria 1+ [HPF] Urinalysis RFX 01/20/[address] [address] [phone] Color YELLOW Appearance CLOUDY Spec Grav Urine 1.017 (1.003-1.030) PH Urine 5.5 (5.0-7.5) Leuk Esterase 2+ Abnormal (Neg) Nitrite Urine POSITIVE Abnormal (Neg) Protein Urine NEGATIVE (Neg) Glucose Urine NEGATIVE (Neg) Ketone Urine NEGATIVE (Neg) Urobilinogen 1.0 mg/dL (0-1.0) Bilirubin Urine NEGATIVE (Neg) Blood/HGB Urine 3+ Abnormal (Neg) Basic Metabolic Panel 01/20/[address] [address] [phone] Sodium 142 mmol/L (136-145) Potassium 4.7 mmol/L [...] Diff 01/20/2020 [facility] [address] [place] [address] [phone] WBC 15.5 10*3/uL High (4.1-11.0) RBC 4.47 10*6/uL Low (4.60-6.10) HGB 14.3 g/dL (13.5-18.0) HCT 43.4 % (41.0-53.0) MCV 97.1 fL High (80.0-95.0) MCH 32.0 pg (27.0-32.0) MCHC 32.9 g/dL (32.0-36.0) RDW 14.5 % (10.5-14.5) PLT 172 10*3/uL (150-450) MPV 9.3 fL (7.1-10.7) 1 PERFORMED BY [facility] 2 Calculi composed primarily of: [...] composition determined by FTIR analysis. Performed By: [facility] [address] [place] [address] Beater Lead: Ny Mckeon MD 3 Unit: mm 4 Specimen consists of a single, large, brown, irregular calculus. 5 PERFORMED BY [facility] 6 -- NORMAL KIDNEY FUNCTION [...] 21) 04:27 PM SOLEDAD KHANNA Admitted to [facility] for IV [...] THE VIRUS THAT CAUSES COVID-19. EMAILED TO [facility] AT [address] [place] [id number] [place] [address]. 15 SPECIMEN DESCRIPTION MIDSTREAM URINE,CLEAN CATCH CULTURE [...] dosing. Procedures Date Code Description Status 03/08/2020 52634 Cystourethroscopy Simple With Re moval Foreign Body Or Stent Completed 02/25/2020 08503 Cystourethroscopy, With Removal Or Manipulation Of Calculus Completed 02/25/2020 77375 Cystourethroscopy, With Insertio n Of Indwelling Ureteral Stent Completed 01/20/2020 61747 Retrograde,Pyelogram,Urography I nterpretation Completed 01/20/[address] Abdomen/Pelvis Wo Contrast Co mpleted 01/20/2020 83804 Cystourethroscopy, With Insertio n Of Indwelling Ureteral Stent Completed 09/22/2019 48474 Ultrasound Retro Renal Real Time With Image Tech Comp Completed 09/22/2019 43388 Ultrasound Retro Renal Real Time With Image Tech Comp Completed 03/26/2012 [id number] Colonoscopy Completed Medical Devices Active Inactive Description Device Identifier Assigning Authority 11/05/2017 Abdominal hernia surgical mesh c omposite-polymer ()[id number] [facility] 11/05/2017 Abdominal hernia surgical mesh c omposite-polymer ()[id number] [facility] Encounters Type Date Location Provider Dx Diagnosis Office Visit 02/02/2020 12:40p [facility] Sarthak Milligan MD N20.1 Calculus of ureter Office Visit 09/22/2019 2:30p [facility] Soledad Khanna NP N20.0 [...] tract infection, site no t specified Linnette Monika,CREATIVE STRATEGIST 01/23/2020 R50.9 Fever, unspecified Linnette Monika,FN P 01/21/2020 N20.1 Calculus of ureter Linnette Frank, P 01/21/2020 N39.0 Urinary tract infection, site no t specified Linnette Monika,CREATIVE STRATEGIST 01/20/2020 N13.2 Hydronephrosis with renal and ur eteral calculous obstruction Sarthak Milligan MD 01/20/2020 N20.0 Calculus of kidney Sarthak Ruby swanson MD 01/20/2020 N20.1 Calculus of ureter Raji Moreira MD 01/20/2020 N13.2 Hydronephrosis with renal and ur eteral calculous obstruction Soledad Khanna NP 09/22/2019 N20.0 Calculus of kidney Sarthak Ruby swanson MD 09/22/2019 N20.0 Calculus of kidney [facility] 09/22/2019 N20.0 Calculus of kidney Soledad schreiber NP 09/22/2019 R82.991 Hypocitraturia Soledad Khanna NP 09/22/2019 R82.992 Hyperoxaluria Soledad Khanna NP 09/22/2019 Z12.5 Encounter for screening for gavin gnant neoplasm of prostate Soledad Khanna NP 09/22/2019 N52.9 Male erectile dysfunction, unspe cified Soledad Khanna NP Plan of Treatment Future Appointment(s):* 03/08/2021 1:00 pm - Soledad Khanna NP at [facility]/ [facility] 03/08/2020 - Sarthak Milligan [...] Status Appt Date Sarthak Milligan M.D. Per [employer] Online: Hospit al Outpatient In Network CoPay :$300 - [facility] SURGICAL COPAY 300 SURG Final CoPay For This Member= $300.0 Per [employer] Online: CPT 84932,45400,43997,52 353,21944,92471,72888- authorization required. Submitted authorization for above codes. The request for services detailed below have been approved Reference Number: [id number] Authorization Number: [id number] Valid 02/25/20-04/25/20 02/17/20 ab Created [facility] [address] [place] [phone] Sarthak Milligan M.D. Per [facility]/[employer] online CPT: 38697 Description: CT ABDOMEN & PELVIS W/O Auth: [id number] Review Date: 01/20/2020 9:16:13 AM Expiration Date: 03/05/2020 Status: Your case has been Approved. 01/20/2020 [place] Created [facility] [address] [place] [phone]
--- OUTSIDE RECORDS SUMMARY | 2020-04-21 16:26 | CCD | Continuity of Care Document ---
Author Author Jose PAYNE MD Organization Unknown Address [address] [place] [address] Phone [phone] Care Team Providers Care Oyster Fisherman Name Role Phone Modesto Alvarado M.D. AUTM [phone] Problems Description No Information Available Social History Type Date Description Comments Sex Unknown Allergies, Adverse Reactions, Alerts Description No Information Available Medications Description No Information Available Immunizations Description No Information Available Vital Signs Description No Information Available Results Description No Information Available Procedures Date Code Description Status 01/23/2020 88834 Echocardiography, Tranthoracic R eal-Time Image Documentation Completed 01/22/2020 66358 Electrocardiogram Interpretation & Report Only Completed Medical Devices Description No Information Available Encounters Description No Information Available Assessments Date Code Description Provider 01/23/2020 R07.9 Chest pain, unspecified Francois García MD 01/22/2020 T83.593A I/I react d/t other urinary sten ts, initial encounter Justyn Payne MD 01/22/2020 N39.0 Urinary tract infection, site no t specified Justyn Payne MD 01/22/2020 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
--- OUTSIDE RECORDS SUMMARY | 2020-04-21 16:26 | CCD | Continuity of Care Document ---
Author Author Jose MILLIGAN MD Organization Unknown Address [address] [place] [address] [address] [place] [address] Phone [phone] Care Team Providers Care School Office Assistant Name Role Phone Damian Matson M.D. AUTM [phone] Robert Alvarez M.D. AUTM [phone] Leroy Triana M.D. AUTM [phone] [facility] Direct-Pat AUTM Unavailable Problems Active Problems Provider [...] Chest pain Onset: 11/23/2015 Coronary arteriosclerosis in [place] artery Onset: 11/25/2015 Hypertensive disorder Onset: 11/25/2015 [...] Overview: Added automatically from request for surgery [id number] Social History Type Date Description Comments Sex Unknown Tobacco Use Start: Unknown End: Unknown Former Cigarette Smo ker 2ppd x 15 years Smoking Status Reviewed: 02/02/20 Former Cigarette Smoker 2ppd x 15 years ETOH Use Patient denies alcohol use Allergies, Adverse Reactions, Alerts Active Allergies Reaction Severity Comments Date Penicillin 11/22/2015 Penicillins 11/22/2017 NSAIDS Other (See Comments) 020 Medications Active Medications SIG Qnty Indications Ordering Provide r Date Oxycodone-Acetaminophen 5-325mg Ta blets take 1-2 tablets [...] pain 30tabs I25.10 Leroy Triana M.D. 02/09/2016 Allopurinol 300mg Tablets 1 by mouth every day Robert Alvarez M.D. 11/22/[address] 1 by mouth every day Robert Alvarez M.D. 11/22/2015 Aspirin 81 Low Dose 81mg Chewtabs Chew 81 mg daily Unknown Pregabalin 150mg Capsules Take 150 mg by mouth 2 (two) times a day Unknown Acetaminophen 325mg Tablets Take 650 mg by mouth every 6 (six) hours as needed for pain Unk nown Oyster Shell Calcium/D [id number]-[id number] Tablets Take 3 tablets by mouth 2 [...] Unknown Zofran 4mg Tablets prn Unknown Nystatin [id number] Powder Apply 1 application topically 2 (two) [...] Date Facility Test Result H/L Range Note Poct glucose 02/25/2020 N2N/CCD Import Glucose, Poc 140 mg/dL High 70 - 99 1 [facility] Glu 02/25/[address] [address] [phone] [facility] Glu 140 mg/dL High (70-99) 2 230 Ua Routine 02/02/2020 [facility] REF TO DR ADDRESS ON ORDER FOR (209)- - Ua Glucose Negative Ua Protein Negative Ua Nitrite Negative Ua Leuko Small Ua Blood Moderate Ua Color Not Entered Ua Ketones Negative Ua Clarity Not Entered Ua Specific [place] 1.015 1.003-1.030 Ua PH 5.5 5.0-7.5 Ua Bilirubin Negative Ua Urobilinogen 0.2 E.U./dL 0.0-1.0 CBC Without Diff 01/25/[address] [address] [phone] WBC 10.1 10*3/uL (4.1-11.0) RBC 3.88 10*6/uL Low (4.60-6.10) HGB 12.6 g/dL Low (13.5-18.0) HCT 37.6 % Low (41.0-53.0) MCV 96.8 fL High (80.0-95.0) MCH 32.3 pg High (27.0-32.0) MCHC 33.4 g/dL (32.0-36.0) RDW 14.2 % (10.5-14.5) PLT 192 10*3/uL (150-450) MPV 8.8 fL (7.1-10.7) Basic Metabolic Panel 01/25/[address] [address] [phone] Sodium 145 mmol/L (136-145) Potassium 3.8 mmol/L (3.6-5.2) Chloride 115 mmol/L High (100-108) Co2 23 mmol/L (22-31) Anion Gap 7 mmol/L (7-16) Urea Nitrogen 17 mg/dL (7-24) Creatinine 1.29 mg/dL (0.80-1.30) BUN/Creat Ratio 13.2 RATIO (10.0-20.0) Glucose 192 mg/dL High (70-99) Calcium 8.0 mg/dL Low (8.4-10.2) GFR 56 ml/min/1.73m2 Low (>59) GFR ( Amer) >60 ml/min/1.73m2 (>59) GFR Interpretation <SEE NOTE> 3 CBC Without Diff 01/24/2020 [facility] [address] [place] [address] [phone] WBC 11.8 10*3/uL High (4.1-11.0) RBC 4.04 10*6/uL Low (4.60-6.10) HGB 12.9 g/dL Low (13.5-18.0) HCT 39.2 % Low (41.0-53.0) MCV 97.1 fL High (80.0-95.0) MCH 31.8 pg (27.0-32.0) MCHC 32.8 g/dL (32.0-36.0) RDW 14.1 % (10.5-14.5) PLT 152 10*3/uL (150-450) MPV 9.0 fL (7.1-10.7) Basic Metabolic Panel 01/24/2020 [address] [place] [address] [phone] Sodium 141 mmol/L (136-145) Potassium 3.7 mmol/L (3.6-5.2) Chloride 112 mmol/L High (100-108) Co2 21 mmol/L Low (22-31) Anion Gap 8 mmol/L (7-16) Urea Nitrogen 19 mg/dL (7-24) Creatinine 1.44 mg/dL High (0.80-1.30) BUN/Creat Ratio 13.2 RATIO (10.0-20.0) Glucose 197 mg/dL High (70-99) Calcium 7.7 mg/dL Low (8.4-10.2) GFR 50 ml/min/1.73m2 Low (>59) GFR ( Amer) >60 ml/min/1.73m2 (>59) GFR Interpretation <SEE NOTE> 4 Laboratory test finding 01/23/2020 [address] [place] [address] [phone] Troponin I <0.05 ng/mL (<0.05) 5 Basic Metabolic Panel 01/23/2020 [address] [place] [address] [phone] Sodium 138 mmol/L (136-145) Potassium 3.6 mmol/L (3.6-5.2) Chloride 106 mmol/L (100-108) Co2 25 mmol/L (22-31) Anion Gap 7 mmol/L (7-16) Urea Nitrogen 20 mg/dL (7-24) Creatinine 1.56 mg/dL High (0.80-1.30) BUN/Creat Ratio 12.8 RATIO (10.0-20.0) Glucose 142 mg/dL High (70-99) Calcium 7.7 mg/dL Low (8.4-10.2) GFR 45 ml/min/1.73m2 Low (>59) GFR ( Amer) 55 ml/min/1.73m2 Low (>59) GFR Interpretation <SEE NOTE> 6 CBC Without Diff 01/23/[address] [address] [phone] WBC 14.4 10*3/uL High (4.1-11.0) RBC 3.93 10*6/uL Low (4.60-6.10) HGB 12.4 g/dL Low (13.5-18.0) HCT 37.8 % Low (41.0-53.0) MCV 96.3 fL High (80.0-95.0) MCH 31.6 pg (27.0-32.0) MCHC 32.8 g/dL (32.0-36.0) RDW 14.4 % (10.5-14.5) PLT 161 10*3/uL (150-450) MPV 9.1 fL (7.1-10.7) CBC Without Diff 01/21/[address] [address] [phone] WBC 10.5 10*3/uL (4.1-11.0) RBC 4.04 10*6/uL Low (4.60-6.10) HGB 12.9 g/dL Low (13.5-18.0) HCT 39.0 % Low (41.0-53.0) MCV 96.6 fL High (80.0-95.0) MCH 31.9 pg (27.0-32.0) MCHC 33.0 g/dL (32.0-36.0) RDW 14.3 % (10.5-14.5) PLT 146 10*3/uL Low (150-450) MPV 8.9 fL (7.1-10.7) Basic Metabolic Panel 01/21/2020 [address] [place], [place] [id number] [phone] Sodium 142 mmol/L (136-145) Potassium 4.0 mmol/L [...] ml/min/1.73m2 (>59) GFR Interpretation <SEE NOTE> 7 230 Ua Routine 01/20/2020 [facility] REF TO DR ADDRESS ON ORDER FOR (655)- - Ua Glucose Negative Ua Protein Negative Ua Nitrite Positive Ua Leuko Small Ua Blood Moderate Ua Color Not Entered Ua Ketones Negative Ua Clarity Not Entered Ua Specific [place] 1.020 1.003-1.030 Ua PH 5.5 5.0-7.5 Ua Bilirubin Negative Ua Urobilinogen 0.2 E.U./dL 0.0-1.0 Laboratory test finding 01/20/2020 [facility] [address] [phone] Urine Culture SPECIMEN DESCRIP <SEE NOTE> 8, 9 Coronavirus By PCR 01/20/2020 [address] [place] [address] [phone] Specimen Description NASOPHARYNGEAL Covid19 Result NOT DETECTED (Ndet) 10 Comment THE U.S. FDA HAS <SEE NOTE> 11 First Test UNKNOWN Employed In thcare UNKNOWN Symptomatic UNKNOWN Date Of Sympt Onset NOT APPLICABLE Hospitalized UNKNOWN Icu UNKNOWN Congregate Care Set UNKNOWN NO Laboratory test finding 01/20/[address] [address] [phone] Urine Culture SPECIMEN DESCRIP <SEE NOTE> 12 Urine Micro Only 01/20/[address] [address] [phone] Urine WBC * 50-100 [HPF] (0-5) Urine RBC * 25-50 [HPF] (0-2) Epithelial Cells 2+ [HPF] Bacteria 1+ [HPF] Urinalysis RFX 01/20/[address] [address] [phone] Color YELLOW Appearance CLOUDY Spec Grav Urine 1.017 (1.003-1.030) PH Urine 5.5 (5.0-7.5) Leuk Esterase 2+ Abnormal (Neg) Nitrite Urine POSITIVE Abnormal (Neg) Protein Urine NEGATIVE (Neg) Glucose Urine NEGATIVE (Neg) Ketone Urine NEGATIVE (Neg) Urobilinogen 1.0 mg/dL (0-1.0) Bilirubin Urine NEGATIVE (Neg) Blood/HGB Urine 3+ Abnormal (Neg) Basic Metabolic Panel 01/20/[address] [address] [phone] Sodium 142 mmol/L (136-145) Potassium 4.7 mmol/L (3.6-5.2) Chloride 108 mmol/L (100-108) Co2 26 mmol/L (22-31) Anion Gap 8 mmol/L (7-16) Urea Nitrogen 25 mg/dL High (7-24) Creatinine 1.50 mg/dL High (0.80-1.30) BUN/Creat Ratio 16.7 RATIO (10.0-20.0) Glucose 147 mg/dL High (70-99) Calcium 8.6 mg/dL (8.4-10.2) GFR 47 ml/min/1.73m2 Low (>59) GFR ( Amer) 57 ml/min/1.73m2 Low (>59) GFR Interpretation <SEE NOTE> 13 CBC Without Diff 01/20/[address] [address] [phone] WBC 15.5 10*3/uL High (4.1-11.0) RBC 4.47 10*6/uL Low (4.60-6.10) HGB 14.3 g/dL (13.5-18.0) HCT 43.4 % (41.0-53.0) MCV 97.1 fL High (80.0-95.0) MCH 32.0 pg (27.0-32.0) MCHC 32.9 g/dL (32.0-36.0) RDW 14.5 % (10.5-14.5) PLT 172 10*3/uL (150-450) MPV 9.3 fL (7.1-10.7) Basic Metabolic Panel 09/02/[address] [facility] [address] [phone] Glucose 136 mg/dL High 65-99 14 BUN 21 mg/dL 8-27 Creatinine 1.24 mg/dL 0.76-1.27 eGFR If NonAfricn Am 62 mL/min/1.73 >59 eGFR If Africn Am 72 mL/min/1.73 >59 BUN/Creatinine Ratio 17 10-24 Sodium 144 mmol/L 134-144 Potassium 4.6 mmol/L 3.5-5.2 Chloride 105 mmol/L 96-106 Carbon Dioxide, Total 24 mmol/L 20-29 Calcium 9.4 mg/dL 8.6-10.2 Laboratory test finding 09/02/[address] [facility] [address] [phone] Uric Acid 4.9 mg/dL 3.7-8.6 15 Vitamin D, 25-Hydroxy 31.7 ng/mL 30.0-100.0 16 1 PERFORMED BY [facility]ICAL ST AFF 2 PERFORMED BY [facility] 3 -- NORMAL KIDNEY FUNCTION OR MILD DISEASE - GFR >OR= 60 CHRONIC KIDNEY DISEASE - GFR 15 - 59 RENAL FAILURE - GFR <15 -- Est. GFR calculation based on the MDRD study equation, which assumes a steady state for creatinine. Est. GFR should not be used for medication dosing. 4 -- NORMAL KIDNEY FUNCTION OR MILD DISEASE - GFR >OR= 60 CHRONIC KIDNEY DISEASE - GFR 15 - 59 RENAL FAILURE - GFR <15 -- Est. GFR calculation based on the MDRD study equation, which assumes a steady state for creatinine. Est. GFR should not be used for medication dosing. 5 Less than 0.05: Myocardial i njury unlikely Greater than or equal to 0.05: Highly suggestive of myocardial injury Correlation with rise and/or fall of serial troponins, clinical symptoms and ECG changes is necessary. 6 -- NORMAL KIDNEY FUNCTION OR MILD [...] not be used for medication dosing. 8 SPECIMEN DESCRIPTION MIDSTREAM URINE,CLEAN CATCH CULTURE RESULTS [...] PERFORMED UPON REQUEST. VANCOMYCIN 1 SUSCEPTIBLE TRIMETH/SULFA 8/152 RESISTANT CIPROFLOXACIN >=8 RESISTANT 9 01/22/20 (Thr Jan 21) 04:27 PM SOLEDAD KHANNA Admitted to [facility] for IV antibiotics 10 THIS ASSAY AMPLIFIES AND DET ECTS THE TARGET RNA USING REAL-TIME PCR. NEGATIVE 2019_NCOV RT-PCR RESULTS DO NOT PRECLUDE 2019_NCOV INFECTION AND SHOULD NOT BE USED THE SOLE BASIS FOR PATIENT MANAGEMENT DECISIONS. 11 THE U.S. FDA HAS MADE THIS T EST AVAILABLE UNDER AN EMERGENCY USE AUTHORIZATION (EUA) FOR THE DETECTION AND/OR DIAGNOSIS OF THE VIRUS THAT CAUSES COVID-19. EMAILED TO [facility] AT 3071 VM [id number] [place] [id number]. 12 SPECIMEN DESCRIPTION MIDSTREAM URINE,CLEAN CATCH CULTURE RESULTS [...] PERFORMED UPON REQUEST. VANCOMYCIN 2 SUSCEPTIBLE TRIMETH/SULFA 8/152 RESISTANT CIPROFLOXACIN >=8 RESISTANT 13 -- NORMAL KIDNEY FUNCTION OR MILD DISEASE - GFR >OR= 60 CHRONIC KIDNEY DISEASE - GFR 15 - 59 RENAL FAILURE - GFR <15 -- Est. GFR calculation based on the MDRD study equation, which assumes a steady state for creatinine. Est. GFR should not be used for medication dosing. 14 A courtesy copy of this repo rt has been sent to [phone] 15 Therapeutic target for gout patients: <6.0 16 Vitamin D deficiency has bee n defined by the [place] [employer] and an Endocrine Society practice guideline as a level of serum 25-OH vitamin D less than 20 ng/mL (1,2). The Endocrine Society went on to further define vitamin D insufficiency as a level between 21 and 29 ng/mL (2). 1. IOM ([place] [employer]). 2010. Di etary reference intakes for calcium and D. [place]: The National Academies Press. 2. Deonna MF, Dustin TERRY, Mekhi aparicio OCONNELL, et al. Evaluation, treatment, and prevention of vitamin D deficiency: an Endocrine Society clinical practice guideline. JCEM. 2010; 96(7):1911-30. Procedures Date Code Description Status 02/25/2020 51492 Cystourethroscopy, W ith Lithotripsy (Ureteral Catheterization Is Completed 01/20/2020 33338 Retrograde,Pyelogram,Urography I nterpretation Completed 01/20/[address] Abdomen/Pelvis Wo Contrast Co mpleted 01/20/2020 52648 Cystourethroscopy, With Insertio n Of Indwelling Ureteral Stent Completed 09/22/2019 74043 Ultrasound Retro Renal Real Time With Image Tech Comp Completed 09/22/2019 42601 Ultrasound Retro Renal Real Time With Image Tech Comp Completed 03/26/2012 84110152 Colonoscopy Completed Medical Devices Active Inactive Description Device Identifier Assigning Authority 11/05/2017 Abdominal hernia surgical mesh c omposite-polymer ()[id number] FDA 11/05/2017 Abdominal hernia surgical mesh c omposite-polymer ()[id number] FDA Encounters Type Date Location Provider Dx Diagnosis Office Visit 02/02/2020 12:40p [facility] Sarthak Milligan MD N20.1 Calculus of ureter Office Visit 09/22/2019 2:30p [facility] Soledad Khanna NP N20.0 Calculus of kidney R82.991 Hypocitraturia R82.992 Hyperoxaluria Z12.5 Encounter for screening for malignant neoplasm of prostate N52.9 Male erectile dysfunction, u nspecified Assessments Date Code Description Provider 02/02/2020 N20.1 Calculus of ureter Sarthak swanson MD 01/23/2020 N39.0 Urinary tract infection, site no t specified Linnette Monika,KNITTING TEACHER 01/23/2020 R50.9 Fever, unspecified Linnette Monika,FN P 01/21/2020 N20.1 Calculus of ureter Linnette Frank,FN P 01/21/2020 N39.0 Urinary tract infection, site no t specified Linnette Monika,KNITTING TEACHER 01/20/2020 N13.2 Hydronephrosis with renal and ur eteral calculous obstruction Sarthak Milligan MD 01/20/2020 N20.0 Calculus of kidney Sarthak swanson MD 01/20/2020 N20.1 Calculus of ureter Raji Moreira MD 01/20/2020 N13.2 Hydronephrosis with renal and ur eteral calculous obstruction Soledad Khanna NP 09/22/2019 N20.0 Calculus of kidney Sarthak swanson MD 09/22/2019 N20.0 Calculus of kidney [facility] 09/22/2019 N20.0 Calculus of kidney Soledad schreiber NP 09/22/2019 R82.991 Hypocitraturia Soledad Khanna NP 09/22/2019 R82.992 Hyperoxaluria Soledad Khanna NP 09/22/2019 Z12.5 Encounter for screening for gavin gnant neoplasm of prostate Soledad Khanna NP 09/22/2019 N52.9 Male erectile dysfunction, unspe cified Soledad Khanna NP Plan of Treatment Future Appointment(s):* 03/08/2020 12:50 pm - Sarthak Milligan MD at [facility] * 09/21/2020 11:15 am - Soledad Khanna NP at [facility] * 09/21/2020 10:30 am - CAMERON RODARTE at [facility] Functional Status Description No Information Available Mental Status Description No Information Available Referrals Refer to Reason for Referral Status Appt Date Sarthak Milligan M.D. Per [facility] Online: [facility] Network CoPay :$300 - MEDICARE OUTPATIENT [facility]OSPITAL SURGICAL COPAY 300 SURG Final CoPay For This Member= $300.0 Per [facility] Online: CPT 92268,49969,46265,52 353,70041,08851,81944- authorization required. Submitted authorization for above codes. The request for services detailed below have been approved Reference Number: [id number] Authorization Number: [id number] Valid 02/25/20-04/25/20 02/17/20 ab Created [facility]rology [address] [place] [address] [phone] Sarthak Milligan M.D. Per [facility] online CPT: 91536 Description: CT ABDOMEN & PELVIS W/O Auth: [id number] Review Date: 01/20/2020 9:16:13 AM Expiration Date: 03/05/2020 Status: Your case has been Approved. 01/20/2020 [place] Created [facility] [address] [place] [address] [phone]
--- OUTSIDE RECORDS SUMMARY | 2020-04-21 16:26 | CCD | Continuity of Care Document ---
Author Author Jose MILLIGAN MD Organization Unknown Address [address] [place] [address] [address] [place] [address] Phone [phone] Care Team Providers Care Bath Mix Operator Name Role Phone Damian Matson M.D. AUTM [phone] Robert Alvarez M.D. AUTM [phone] Leroy Triana M.D. AUTM [phone] [facility] Direct-Pat AUTM Unavailable [...] Chest pain Onset: 11/23/2015 Coronary arteriosclerosis in [place] artery Onset: 11/25/2015 Hypertensive disorder Onset: 11/25/2015 [...] Overview: Added automatically from request for surgery [id number] Social History Type Date Description Comments Sex [...] for pain Unk nown Oyster Shell Calcium/D [id number] Tablets Take 3 tablets by mouth 2 [...] Unknown Zofran 4mg Tablets prn Unknown Nystatin [id number]/GM Powder Apply 1 application topically 2 (two) [...] 70 - 99 1 Stone Analysis 02/25/[address] [address] [phone] Composition See Note 2 Mass 166 mg Calculi Number 1 Calculi Size > 9 3 Calculi Description See Note 4 Poc Nova Glu 02/25/[address] [place] [address] [phone] Poc Nova Glu 140 mg/dL High (70-99) 5 230 Ua Routine 02/02/2020 [facility] REF TO DR CORREA ON ORDER FOR (153)- - Ua Glucose Negative Ua Protein Negative Ua Nitrite Negative Ua Leuko Small Ua Blood Moderate Ua Color Not Entered Ua Ketones Negative Ua Clarity Not Entered Ua Specific Alpine 1.015 1.003-1.030 Ua PH 5.5 5.0-7.5 Ua Bilirubin Negative Ua Urobilinogen 0.2 E.U./dL 0.0-1.0 CBC Without Diff 01/25/2020 [facility] [address] [place] [address] [phone] WBC 10.1 10*3/uL (4.1-11.0) RBC 3.88 10*6/uL Low (4.60-6.10) HGB 12.6 g/dL Low (13.5-18.0) HCT 37.6 % Low (41.0-53.0) MCV 96.8 fL High (80.0-95.0) MCH 32.3 pg High (27.0-32.0) MCHC 33.4 g/dL (32.0-36.0) RDW 14.2 % (10.5-14.5) PLT 192 10*3/uL (150-450) MPV 8.8 fL (7.1-10.7) Basic Metabolic Panel 01/25/[address] [address] [phone] Sodium 145 mmol/L (136-145) Potassium 3.8 mmol/L [...] <SEE NOTE> 6 CBC Without Diff 01/24/2020 [place] [address] [place] [address] [phone] WBC 11.8 10*3/uL High (4.1-11.0) RBC 4.04 10*6/uL Low (4.60-6.10) HGB 12.9 g/dL Low (13.5-18.0) HCT 39.2 % Low (41.0-53.0) MCV 97.1 fL High (80.0-95.0) MCH 31.8 pg (27.0-32.0) MCHC 32.8 g/dL (32.0-36.0) RDW 14.1 % (10.5-14.5) PLT 152 10*3/uL (150-450) MPV 9.0 fL (7.1-10.7) Basic Metabolic Panel 01/24/[address] [place] [address] [phone] Sodium 141 mmol/L (136-145) Potassium 3.7 mmol/L [...] <SEE NOTE> 7 Laboratory test finding 01/23/2020 [address] [place] [place] [address] [phone] Troponin I <0.05 ng/mL (<0.05) 8 Basic Metabolic Panel 01/23/2020 [facility] [address] [place] [address] [phone] Sodium 138 mmol/L (136-145) Potassium 3.6 mmol/L [...] <SEE NOTE> 9 CBC Without Diff 01/23/[address] [address] [phone] WBC 14.4 10*3/uL High (4.1-11.0) RBC 3.93 10*6/uL Low (4.60-6.10) HGB 12.4 g/dL Low (13.5-18.0) HCT 37.8 % Low (41.0-53.0) MCV 96.3 fL High (80.0-95.0) MCH 31.6 pg (27.0-32.0) MCHC 32.8 g/dL (32.0-36.0) RDW 14.4 % (10.5-14.5) PLT 161 10*3/uL (150-450) MPV 9.1 fL (7.1-10.7) CBC Without Diff 01/21/[address] [place] [address] [phone] WBC 10.5 10*3/uL (4.1-11.0) RBC 4.04 10*6/uL Low (4.60-6.10) HGB 12.9 g/dL Low (13.5-18.0) HCT 39.0 % Low (41.0-53.0) MCV 96.6 fL High (80.0-95.0) MCH 31.9 pg (27.0-32.0) MCHC 33.0 g/dL (32.0-36.0) RDW 14.3 % (10.5-14.5) PLT 146 10*3/uL Low (150-450) MPV 8.9 fL (7.1-10.7) Basic Metabolic Panel 01/21/2020 [facility] [address] [place] [address] [phone] Sodium 142 mmol/L (136-145) Potassium 4.0 mmol/L [...] (315)- - Ua Glucose Negative Ua Protein Negative Ua Nitrite Positive Ua Leuko Small Ua Blood Moderate Ua Color Not Entered Ua Ketones Negative Ua Clarity Not Entered Ua Specific Alpine 1.020 1.003-1.030 Ua PH 5.5 5.0-7.5 Ua Bilirubin Negative Ua Urobilinogen 0.2 E.U./dL 0.0-1.0 Laboratory test finding 01/20/2020 [facility] [place] [address] [phone] Urine Culture SPECIMEN DESCRIP <SEE NOTE> 11, 12 Coronavirus By PCR 01/20/2020 [facility] [address] [place] [address] [phone] Specimen Description NASOPHARYNGEAL Covid19 Result NOT DETECTED (Ndet) 13 Comment THE U.S. FDA HAS <SEE NOTE> 14 First Test UNKNOWN Employed In [employer] UNKNOWN Symptomatic UNKNOWN Date Of Sympt Onset NOT APPLICABLE Hospitalized UNKNOWN Icu UNKNOWN Congregate Care Set UNKNOWN NO Laboratory test finding 01/20/2020 [address] [place] [address] [phone] Urine Culture SPECIMEN DESCRIP <SEE NOTE> 15 Urine Micro Only 01/20/[address] [address] [phone] Urine WBC * 50-100 [HPF] (0-5) Urine RBC * 25-50 [HPF] (0-2) Epithelial Cells 2+ [HPF] Bacteria 1+ [HPF] Urinalysis RFX 01/20/[address] [address] [phone] Color YELLOW Appearance CLOUDY Spec Grav Urine 1.017 (1.003-1.030) PH Urine 5.5 (5.0-7.5) Leuk Esterase 2+ Abnormal (Neg) Nitrite Urine POSITIVE Abnormal (Neg) Protein Urine NEGATIVE (Neg) Glucose Urine NEGATIVE (Neg) Ketone Urine NEGATIVE (Neg) Urobilinogen 1.0 mg/dL (0-1.0) Bilirubin Urine NEGATIVE (Neg) Blood/HGB Urine 3+ Abnormal (Neg) Basic Metabolic Panel 01/20/[address] [address] [phone] Sodium 142 mmol/L (136-145) Potassium 4.7 mmol/L [...] Diff 01/20/2020 [facility] [address] [place] [address] [phone] WBC 15.5 10*3/uL High (4.1-11.0) RBC 4.47 10*6/uL Low (4.60-6.10) HGB 14.3 g/dL (13.5-18.0) HCT 43.4 % (41.0-53.0) MCV 97.1 fL High (80.0-95.0) MCH 32.0 pg (27.0-32.0) MCHC 32.9 g/dL (32.0-36.0) RDW 14.5 % (10.5-14.5) PLT 172 10*3/uL (150-450) MPV 9.3 fL (7.1-10.7) Basic Metabolic Panel 09/02/[address] [facility] [address] [phone] Glucose 136 mg/dL High 65-99 17 BUN 21 mg/dL 8-27 Creatinine 1.24 mg/dL 0.76-1.27 eGFR If NonAfricn Am 62 mL/min/1.73 >59 eGFR If Africn Am 72 mL/min/1.73 >59 BUN/Creatinine Ratio 17 10-24 Sodium 144 mmol/L 134-144 Potassium 4.6 mmol/L 3.5-5.2 Chloride 105 mmol/L 96-106 Carbon Dioxide, Total 24 mmol/L 20-29 Calcium 9.4 mg/dL 8.6-10.2 Laboratory test finding 09/02/[address] [facility] [address] [phone] Uric Acid 4.9 mg/dL 3.7-8.6 18 Vitamin D, 25-Hydroxy 31.7 ng/mL 30.0-100.0 19 1 PERFORMED BY [facility] 2 Calculi composed primarily of: [...] composition determined by FTIR analysis. Performed By: [facility] [address] [place] [address] Mirror Department Supervisor: Ny Mckeon MD 3 Unit: mm 4 Specimen consists of a single, large, brown, irregular calculus. 5 PERFORMED BY [facility] 6 -- NORMAL KIDNEY FUNCTION [...] 21) 04:27 PM SOLEDAD KHANNA Ad[facility] for [facility] antibiotics 13 THIS [...] THE VIRUS THAT CAUSES COVID-19. EMAILED TO [facility] AT 1840 [place] 6[address]225 [place] [address]. 15 SPECIMEN DESCRIPTION MIDSTREAM URINE,CLEAN CATCH CULTURE [...] SUSCEPTIBLE TRIMETH/SULFA 8/152 RESISTANT CIPROFLOXACIN >=8 RESISTANT 16 -- NORMAL KIDNEY FUNCTION OR MILD DISEASE - GFR >OR= 60 CHRONIC KIDNEY DISEASE - GFR 15 - 59 RENAL FAILURE - GFR <15 -- Est. GFR calculation based on the MDRD study equation, which assumes a steady state for creatinine. Est. GFR should not be used for medication dosing. 17 A courtesy copy of this repo rt has been sent to [phone] 18 Therapeutic target for gout patients: <6.0 19 Vitamin D deficiency has bee n defined by the [place] of Medicine and an Endocrine Society practice guideline as a level of serum 25-OH vitamin D less than 20 ng/mL (1,2). The Endocrine Society went on to further define vitamin D insufficiency as a level between 21 and 29 ng/mL (2). 1. IOM ([place] of Medicine). 2010. Di etary reference intakes for calcium and D. [place]: The National Academies Press. 2. Deonna MF, Dustin [place], Mekhi aparicio OCONNELL, et al. Evaluation, treatment, and prevention of vitamin D deficiency: an Endocrine Society clinical practice guideline. JCEM. 2010; 96(7):1911-30. Procedures Date Code Description Status 02/25/2020 79852 Cystourethroscopy, With Removal Or Manipulation Of Calculus Completed 02/25/2020 34673 Cystourethroscopy, With Insertio n Of Indwelling Ureteral Stent Completed 01/20/2020 93313 Retrograde,Pyelogram,Urography I nterpretation Completed 01/20/[address] Abdomen/Pelvis Wo Contrast Co mpleted 01/20/2020 07805 Cystourethroscopy, With Insertio n Of Indwelling Ureteral Stent Completed 09/22/2019 45597 Ultrasound Retro Renal Real Time With Image Tech Comp Completed 09/22/2019 05074 Ultrasound Retro Renal Real Time With Image Tech Comp Completed 03/26/2012 [id number] Colonoscopy Completed Medical Devices Active Inactive Description Device Identifier Assigning Authority 11/05/2017 Abdominal hernia surgical mesh c omposite-polymer [id number] FDA 11/05/2017 Abdominal hernia surgical mesh c omposite-polymer ()[id number] FDA Encounters Type Date Location Provider Dx Diagnosis Office Visit 02/02/2020 12:40p [facility] Sarthak Milligan MD N20.1 Calculus of ureter Office Visit 09/22/2019 2:30p [facility] Soledad Khanna NP N20.0 Calculus of kidney R82.991 Hypocitraturia R82.992 Hyperoxaluria Z12.5 Encounter for screening for malignant neoplasm of prostate N52.9 Male erectile dysfunction, u nspecified Assessments Date Code Description Provider 02/25/2020 N20.1 Calculus of ureter Sarthak swanson MD 02/02/2020 N20.1 Calculus of ureter Sarthak swanson MD 01/23/2020 N39.0 Urinary tract infection, site no t specified Linnette Frank,ICHTHYOLOGIST 01/23/2020 R50.9 Fever, unspecified Linnette Frank,FN P 01/21/2020 N20.1 Calculus of ureter Linnette FrankFN P 01/21/2020 N39.0 Urinary tract infection, site no t specified Linnette Frank,ICHTHYOLOGIST 01/20/2020 N13.2 Hydronephrosis with renal and ur eteral calculous obstruction Sarthak Milligan MD 01/20/2020 N20.0 Calculus of kidney Sarthak swanson MD 01/20/2020 N20.1 Calculus of ureter Raji Moreira MD 01/20/2020 N13.2 Hydronephrosis with renal and ur eteral calculous obstruction Soledad Khanna NP 09/22/2019 N20.0 Calculus of kidney Sarthak swanson MD 09/22/2019 N20.0 Calculus of kidney NM US 09/22/2019 N20.0 Calculus of kidney Soledad schreiber NP 09/22/2019 R82.991 Hypocitraturia Soledad Khanna NP 09/22/2019 R82.992 Hyperoxaluria Soledad Khanna NP 09/22/2019 Z12.5 Encounter for screening for gavin gnant neoplasm of prostate Soledad Khanna NP 09/22/2019 N52.9 Male erectile dysfunction, unspe cified Soledad Khanna NP Plan of Treatment Future Appointment(s):* 03/08/2020 12:50 pm - Sarthak Milligan MD at [facility] * 09/21/2020 11:15 am - Soledad Khanna NP at [facility] * 09/21/2020 10:30 am - NM at [facility] Functional Status Description No Information Available Mental Status Description No Information Available Referrals Refer to Dr Reason for Referral Status Appt Date Sarthak Milligan M.D. Per [employer] Online: Hospit al Outpatient In Network CoPay :$300 - [facility]ARE [facility]PATIENT [facility]PITAL SURGICAL COPAY 300 SURG Final CoPay For This Member= $300.0 Per [facility] Online: CPT 38363,61417,510[address],52 353,19543,23483,60051- authorization required. Submitted authorization for above codes. The request for services detailed below have been approved Reference Number: [id number] Authorization Number: [id number] Valid 02/25/20-04/25/20 02/17/20 ab Created [facility] Urology [address] [place] [phone] Sarthak Milligan M.D. Per [employer] online CPT: 86608 Description: CT ABDOMEN & PELVIS W/O Auth: [id number] Review Date: 01/20/2020 9:16:13 AM Expiration Date: 03/05/2020 Status: Your case has been Approved. 01/20/2020 MO Created [facility] Urology [address] [place] [id number] [phone]
--- OUTSIDE RECORDS SUMMARY | 2020-04-21 16:26 | CCD | Continuity of Care Document ---
Author Organization Unknown Address Unknown Phone Unavailable Care Team Providers Care Solid Waste Disposal Manager Name Role Phone Damian Matson M.D. AUTM [phone] Robert Alvarez M.D. AUTM [phone] Leroy Triana M.D. AUTM [phone] [facility] Direct-Pat AUTM Unavailable Problems Active Problems [...] Chest pain Onset: 11/23/2015 Coronary arteriosclerosis in [place] artery Onset: 11/25/2015 Hypertensive disorder Onset: 11/25/2015 [...] 05/16/2018 Left upper quadrant pain Onset: 08/14/19 Coronary atherosclerosis Onset: 11/25/19 16 Patient encounter status Onset: 06/21/19 Note: Overview: Added automatically from request for surgery [id number] Social History Type Date Description Comments Sex [...] Knight M.D . 06/14/2017 Omeprazole 40mg Capsules 1 by mouth every day Dereck Velasquez [...] for pain Unk nown Oyster Shell Calcium/D [id number]-Pogb Tablets Take 3 tablets by mouth 2 [...] Unknown Zofran 4mg Tablets prn Unknown Nystatin 923177Tugm/GM Powder Apply 1 application topically 2 (two) [...] - 99 1 Poc Nova Glu 02/25/[address] [address] [phone] Poc Nova Glu 140 mg/dL High (70-99) 2 230 Ua Routine 02/02/2020 [facility] REF TO DR ADDRESS ON ORDER FOR (003)- - Ua Glucose Negative Ua Protein Negative Ua Nitrite Negative Ua Leuko Small Ua Blood Moderate Ua Color Not Entered Ua Ketones Negative Ua Clarity Not Entered Ua Specific Dent 1.015 1.003-1.030 Ua PH 5.5 5.0-7.5 Ua Bilirubin Negative Ua Urobilinogen 0.2 E.U./dL 0.0-1.0 CBC Without Diff 01/25/2020 [facility] [address] [place] [address] [phone] WBC 10.1 10*3/uL (4.1-11.0) RBC 3.88 10*6/uL Low (4.60-6.10) HGB 12.6 g/dL Low (13.5-18.0) HCT 37.6 % Low (41.0-53.0) MCV 96.8 fL High (80.0-95.0) MCH 32.3 pg High (27.0-32.0) MCHC 33.4 g/dL (32.0-36.0) RDW 14.2 % (10.5-14.5) PLT 192 10*3/uL (150-450) MPV 8.8 fL (7.1-10.7) Basic Metabolic Panel 01/25/[address] [place] [address] [phone] Sodium 145 mmol/L (136-145) Potassium 3.8 mmol/L [...] <SEE NOTE> 3 CBC Without Diff 01/24/[address] [place] [address] [phone] WBC 11.8 10*3/uL High (4.1-11.0) RBC 4.04 10*6/uL Low (4.60-6.10) HGB 12.9 g/dL Low (13.5-18.0) HCT 39.2 % Low (41.0-53.0) MCV 97.1 fL High (80.0-95.0) MCH 31.8 pg (27.0-32.0) MCHC 32.8 g/dL (32.0-36.0) RDW 14.1 % (10.5-14.5) PLT 152 10*3/uL (150-450) MPV 9.0 fL (7.1-10.7) Basic Metabolic Panel 01/24/2020 [place] [address] [place] [address] [phone] Sodium 141 mmol/L (136-145) Potassium 3.7 mmol/L [...] <SEE NOTE> 4 Laboratory test finding 01/23/2020 [place] [place] [address] [phone] Troponin I <0.05 ng/mL (<0.05) 5 Basic Metabolic Panel 01/23/2020 [place] [place] [address] [phone] Sodium 138 mmol/L (136-145) Potassium 3.6 mmol/L [...] <SEE NOTE> 6 CBC Without Diff 01/23/2020 [facility] [address] [place] [address] [phone] WBC 14.4 10*3/uL High (4.1-11.0) RBC 3.93 10*6/uL Low (4.60-6.10) HGB 12.4 g/dL Low (13.5-18.0) HCT 37.8 % Low (41.0-53.0) MCV 96.3 fL High (80.0-95.0) MCH 31.6 pg (27.0-32.0) MCHC 32.8 g/dL (32.0-36.0) RDW 14.4 % (10.5-14.5) PLT 161 10*3/uL (150-450) MPV 9.1 fL (7.1-10.7) CBC Without Diff 01/21/[address] [address] [phone] WBC 10.5 10*3/uL (4.1-11.0) RBC 4.04 10*6/uL Low (4.60-6.10) HGB 12.9 g/dL Low (13.5-18.0) HCT 39.0 % Low (41.0-53.0) MCV 96.6 fL High (80.0-95.0) MCH 31.9 pg (27.0-32.0) MCHC 33.0 g/dL (32.0-36.0) RDW 14.3 % (10.5-14.5) PLT 146 10*3/uL Low (150-450) MPV 8.9 fL (7.1-10.7) Basic Metabolic Panel 01/21/2020 [address] [place] [address] [phone] Sodium 142 mmol/L (136-145) Potassium 4.0 mmol/L [...] Negative Ua Clarity Not Entered Ua Specific Dent 1.020 1.003-1.030 Ua PH 5.5 5.0-7.5 Ua Bilirubin Negative Ua Urobilinogen 0.2 E.U./dL 0.0-1.0 Laboratory test finding 01/20/2020 Laboratory [facility]/[place] [address] [phone] Urine Culture SPECIMEN DESCRIP <SEE NOTE> 8, 9 Coronavirus By PCR 01/20/[address] [address] [phone] Specimen Description NASOPHARYNGEAL Covid19 Result NOT DETECTED (Ndet) 10 Comment THE U.S. FDA HAS <SEE NOTE> 11 First Test UNKNOWN Employed In [employer] UNKNOWN Symptomatic UNKNOWN Date Of Sympt Onset NOT APPLICABLE Hospitalized UNKNOWN Icu UNKNOWN Congregate Care Set UNKNOWN NO Laboratory test finding 01/20/[address] [place] [address] [phone] Urine Culture SPECIMEN DESCRIP <SEE NOTE> 12 Urine Micro Only 01/20/2020 [place] [place] [address] [phone] Urine WBC * 50-100 [HPF] (0-5) Urine RBC * 25-50 [HPF] (0-2) Epithelial Cells 2+ [HPF] Bacteria 1+ [HPF] Urinalysis RFX 01/20/[address] [place] [address] [phone] Color YELLOW Appearance CLOUDY Spec Grav Urine 1.017 (1.003-1.030) PH Urine 5.5 (5.0-7.5) Leuk Esterase 2+ Abnormal (Neg) Nitrite Urine POSITIVE Abnormal (Neg) Protein Urine NEGATIVE (Neg) Glucose Urine NEGATIVE (Neg) Ketone Urine NEGATIVE (Neg) Urobilinogen 1.0 mg/dL (0-1.0) Bilirubin Urine NEGATIVE (Neg) Blood/HGB Urine 3+ Abnormal (Neg) Basic Metabolic Panel 01/20/[address] [address] [phone] Sodium 142 mmol/L (136-145) Potassium 4.7 mmol/L [...] <SEE NOTE> 13 CBC Without Diff 01/20/2020 [place] [address] [place] [address] [phone] WBC 15.5 10*3/uL High (4.1-11.0) RBC 4.47 10*6/uL Low (4.60-6.10) HGB 14.3 g/dL (13.5-18.0) HCT 43.4 % (41.0-53.0) MCV 97.1 fL High (80.0-95.0) MCH 32.0 pg (27.0-32.0) MCHC 32.9 g/dL (32.0-36.0) RDW 14.5 % (10.5-14.5) PLT 172 10*3/uL (150-450) MPV 9.3 fL (7.1-10.7) Basic Metabolic Panel 09/02/[address] [facility] [address] [phone] Glucose 136 mg/dL High 65-99 14 BUN 21 mg/dL 8-27 Creatinine 1.24 mg/dL 0.76-1.27 eGFR If NonAfricn Am 62 mL/min/1.73 >59 eGFR If Africn Am 72 mL/min/1.73 >59 BUN/Creatinine Ratio 17 10-24 Sodium 144 mmol/L 134-144 Potassium 4.6 mmol/L 3.5-5.2 Chloride 105 mmol/L 96-106 Carbon Dioxide, Total 24 mmol/L 20-29 Calcium 9.4 mg/dL 8.6-10.2 Laboratory test finding 09/02/[address] [facility] [address] [phone] Uric Acid 4.9 mg/dL 3.7-8.6 15 Vitamin D, 25-Hydroxy 31.7 ng/mL 30.0-100.0 16 1 PERFORMED BY [facility] 2 PERFORMED BY [facility] 3 -- NORMAL KIDNEY [...] 21) 04:27 PM SOLEDAD KHANNA Admitted to [facility] for IV antibiotics 10 THIS ASSAY AMPLIFIES [...] THE VIRUS THAT CAUSES COVID-19. EMAILED TO [facility] AT [address] [place] [address]. 12 SPECIMEN DESCRIPTION MIDSTREAM URINE,CLEAN CATCH CULTURE [...] this repo rt has been sent to [phone] 15 Therapeutic target for gout patients: <6.0 16 Vitamin D deficiency has bee n defined by the [place] of Medicine and an Endocrine Society practice guideline as a level of serum 25-OH vitamin D less than 20 ng/mL (1,2). The Endocrine Society went on to further define vitamin D insufficiency as a level between 21 and 29 ng/mL (2). 1. IOM ([place] of Medicine). 2010. Di etary reference intakes for calcium and D. [place]: The National Academies Press. 2. Deonna MF, Dustin TERRY, Mekhi aparicio OCONNELL, et al. Evaluation, treatment, and prevention of vitamin D deficiency: an Endocrine Society clinical practice guideline. JCEM. 2010; 96(7):1911-30. Procedures Date Code Description Status 02/25/2020 71086 Cystourethroscopy, W ith Lithotripsy (Ureteral Catheterization Is Completed 01/20/2020 53347 Retrograde,Pyelogram,Urography I nterpretation Completed 01/20/[address] Abdomen/Pelvis Wo Contrast Co mpleted 01/20/2020 99384 Cystourethroscopy, With Insertio n Of Indwelling Ureteral Stent Completed 09/22/2019 28487 Ultrasound Retro Renal Real Time With Image Tech Comp Completed 09/22/2019 56221 Ultrasound Retro Renal Real Time With Image Tech Comp Completed 03/26/2012 [id number] Colonoscopy Completed Medical Devices Active Inactive Description Device Identifier Assigning Authority 11/05/2017 Abdominal hernia surgical mesh c omposite-polymer [id number] FDA 11/05/2017 Abdominal hernia surgical mesh c omposite-polymer ()[id number] FDA Encounters Type Date Location Provider Dx Diagnosis Office Visit 02/02/2020 12:40p [facility] Sarthak Johnson MD N20.1 Calculus of ureter Office Visit 09/22/2019 2:30p [facility] Soledad Khanna NP N20.0 Calculus of kidney R82.991 Hypocitraturia R82.992 Hyperoxaluria Z12.5 Encounter for screening for malignant neoplasm of prostate N52.9 Male erectile dysfunction, u nspecified Assessments Date Code Description Provider 02/02/2020 N20.1 Calculus of ureter Sarthak swanson MD 01/23/2020 N39.0 Urinary tract infection, site no t specified Linnette Monika,MARKETING SALES SUPERVISOR 01/23/2020 R50.9 Fever, unspecified Linnette Monika,FN P 01/21/2020 N20.1 Calculus of ureter Linnette Monika, P 01/21/2020 N39.0 Urinary tract infection, site no t specified Linnette Monika,MARKETING SALES SUPERVISOR 01/20/2020 N13.2 Hydronephrosis with renal and ur eteral calculous obstruction Sarthak Johnson MD 01/20/2020 N20.0 Calculus of kidney Sarthak swanson MD 01/20/2020 N20.1 Calculus of ureter Raji Moreira MD 01/20/2020 N13.2 Hydronephrosis with renal and ur eteral calculous obstruction Soledad Khanna NP 09/22/2019 N20.0 Calculus of kidney Sarthak swanson MD 09/22/2019 N20.0 Calculus of kidney [facility] 09/22/2019 N20.0 Calculus of kidney Soledad schreiber NP 09/22/2019 R82.991 Hypocitraturia Soledad Khanna NP 09/22/2019 R82.992 Hyperoxaluria Soledad Khanna NP 09/22/2019 Z12.5 Encounter for screening for gavin gnant neoplasm of prostate Soledad Khanna NP 09/22/2019 N52.9 Male erectile dysfunction, unspe cified Soledad Khanna NP Plan of Treatment Future Appointment(s):* 03/08/2020 12:50 pm - Sarthak Johnson MD at [facility] * 09/21/2020 11:15 am - Soledad Khanna NP at [facility] * 09/21/2020 10:30 am - [place] at [facility] Functional Status Description No Information Available Mental Status Description No Information Available Referrals Refer to Reason for Referral Status Appt Date Sarthak Johnson M.D. Per [employer] Online: Hospit al Outpatient In Network CoPay :$300 - MEDICARE OUTPATIENT [facility]OSPITAL SURGICAL COPAY 300 SURG Final CoPay For This Member= $300.0 Per [facility]: CPT 63123,66944,38903,52 353,83151,21425,90806- authorization required. Submitted authorization for above codes. The request for services detailed below have been approved Reference Number: [id number] Authorization Number: [id number] Valid 02/25/20-04/25/20 02/17/20 ab Created [facility] [address] [place] [address] [phone] Sarthak Jonhson M.D. Per [facility] online CPT: 20492 Description: CT ABDOMEN & PELVIS W/O Auth: [id number] Review Date: 01/20/2020 9:16:13 AM Expiration Date: 03/05/2020 Status: Your case has been Approved. 01/20/2020 MO Created [facility] [address] [place] [address] [phone]
--- OUTSIDE RECORDS SUMMARY | 2020-04-21 16:26 | CCD | Continuity of Care Document ---
Author Author Jose MILLIGAN MD Organization Unknown Address [address] [place] [address] [address] [place] [address] Phone [phone] Care Team Providers Care Customer Service Voice Name Role Phone Damian Matson M.D. AUTM [phone] Robert Alvarez M.D. AUTM [phone] Leroy Triana M.D. 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 Onset: 11/25/2015 Hypertensive disorder Onset: 11/25/2015 [...] Overview: Added automatically from request for surgery [id number] Social History Type Date Description Comments Sex [...] for pain Unk nown Oyster Shell Calcium/D [id number] Tablets Take 3 tablets by mouth 2 [...] Unknown Zofran 4mg Tablets prn Unknown Nystatin [id number] Powder Apply 1 application topically 2 (two) [...] - 99 1 Poc Nova Glu 02/25/[address] [address] [phone] Poc Nova Glu 140 mg/dL High (70-99) 2 230 Ua Routine 02/02/2020 [facility] REF TO DR ADDRESS ON ORDER FOR (538)- - Ua Glucose Negative Ua Protein Negative Ua Nitrite Negative Ua Leuko Small Ua Blood Moderate Ua Color Not Entered Ua Ketones Negative Ua Clarity Not Entered Ua Specific [place] 1.015 1.003-1.030 Ua PH 5.5 5.0-7.5 Ua Bilirubin Negative Ua Urobilinogen 0.2 E.U./dL 0.0-1.0 CBC Without Diff 01/25/[address] [address] [phone] WBC 10.1 10*3/uL (4.1-11.0) RBC 3.88 10*6/uL Low (4.60-6.10) HGB 12.6 g/dL Low (13.5-18.0) HCT 37.6 % Low (41.0-53.0) MCV 96.8 fL High (80.0-95.0) MCH 32.3 pg High (27.0-32.0) MCHC 33.4 g/dL (32.0-36.0) RDW 14.2 % (10.5-14.5) PLT 192 10*3/uL (150-450) MPV 8.8 fL (7.1-10.7) Basic Metabolic Panel 01/25/[address] [address] [phone] Sodium 145 mmol/L (136-145) Potassium 3.8 mmol/L [...] <SEE NOTE> 3 CBC Without Diff 01/24/2020 [address] [address] [address] [place] [address] [phone] WBC 11.8 10*3/uL High (4.1-11.0) RBC 4.04 10*6/uL Low (4.60-6.10) HGB 12.9 g/dL Low (13.5-18.0) HCT 39.2 % Low (41.0-53.0) MCV 97.1 fL High (80.0-95.0) MCH 31.8 pg (27.0-32.0) MCHC 32.8 g/dL (32.0-36.0) RDW 14.1 % (10.5-14.5) PLT 152 10*3/uL (150-450) MPV 9.0 fL (7.1-10.7) Basic Metabolic Panel 01/24/2020 [address] [address] [place] [address] [phone] Sodium 141 mmol/L (136-145) Potassium 3.7 mmol/L [...] <SEE NOTE> 4 Laboratory test finding 01/23/2020 [address] [address] [place] [address] [phone] Troponin I <0.05 ng/mL (<0.05) 5 Basic Metabolic Panel 01/23/2020 [address] [address] [place] [address] [phone] Sodium 138 mmol/L (136-145) Potassium 3.6 mmol/L [...] <SEE NOTE> 6 CBC Without Diff 01/23/[address] [address] [phone] WBC 14.4 10*3/uL High (4.1-11.0) RBC 3.93 10*6/uL Low (4.60-6.10) HGB 12.4 g/dL Low (13.5-18.0) HCT 37.8 % Low (41.0-53.0) MCV 96.3 fL High (80.0-95.0) MCH 31.6 pg (27.0-32.0) MCHC 32.8 g/dL (32.0-36.0) RDW 14.4 % (10.5-14.5) PLT 161 10*3/uL (150-450) MPV 9.1 fL (7.1-10.7) CBC Without Diff 01/21/[address] [address] [phone] WBC 10.5 10*3/uL (4.1-11.0) RBC 4.04 10*6/uL Low (4.60-6.10) HGB 12.9 g/dL Low (13.5-18.0) HCT 39.0 % Low (41.0-53.0) MCV 96.6 fL High (80.0-95.0) MCH 31.9 pg (27.0-32.0) MCHC 33.0 g/dL (32.0-36.0) RDW 14.3 % (10.5-14.5) PLT 146 10*3/uL Low (150-450) MPV 8.9 fL (7.1-10.7) Basic Metabolic Panel 01/21/2020 [address] [place], [place] [address] [phone] Sodium 142 mmol/L (136-145) Potassium 4.0 mmol/L [...] REF TO DR ADDRESS ON ORDER FOR (799)- - Ua Glucose Negative Ua Protein Negative Ua Nitrite Positive Ua Leuko Small Ua Blood Moderate Ua Color Not Entered Ua Ketones Negative Ua Clarity Not Entered Ua Specific [place] 1.020 1.003-1.030 Ua PH 5.5 5.0-7.5 Ua Bilirubin Negative Ua Urobilinogen 0.2 E.U./dL 0.0-1.0 Laboratory test finding 01/20/2020 [facility] [place] [address] [phone] Urine Culture SPECIMEN DESCRIP <SEE NOTE> 8, 9 Coronavirus By PCR 01/20/2020 [address] [place] [address] [phone] Specimen Description NASOPHARYNGEAL Covid19 Result NOT DETECTED (Ndet) 10 Comment THE U.[place]. FDA HAS <SEE NOTE> 11 First Test UNKNOWN Employed In thcare UNKNOWN Symptomatic UNKNOWN Date Of Sympt Onset NOT APPLICABLE Hospitalized UNKNOWN Icu UNKNOWN Congregate Care Set UNKNOWN NO Laboratory test finding 01/20/[address] [address] [phone] Urine Culture SPECIMEN DESCRIP <SEE NOTE> 12 Urine Micro Only 01/20/[address] [address] [phone] Urine WBC * 50-100 [HPF] (0-5) Urine RBC * 25-50 [HPF] (0-2) Epithelial Cells 2+ [HPF] Bacteria 1+ [HPF] Urinalysis RFX 01/20/[address] [address] [phone] Color YELLOW Appearance CLOUDY Spec Grav Urine 1.017 (1.003-1.030) PH Urine 5.5 (5.0-7.5) Leuk Esterase 2+ Abnormal (Neg) Nitrite Urine POSITIVE Abnormal (Neg) Protein Urine NEGATIVE (Neg) Glucose Urine NEGATIVE (Neg) Ketone Urine NEGATIVE (Neg) Urobilinogen 1.0 mg/dL (0-1.0) Bilirubin Urine NEGATIVE (Neg) Blood/HGB Urine 3+ Abnormal (Neg) Basic Metabolic Panel 01/20/[address] [address] [phone] Sodium 142 mmol/L (136-145) Potassium 4.7 mmol/L [...] <SEE NOTE> 13 CBC Without Diff 01/20/[address] [address] [phone] WBC 15.5 10*3/uL High (4.1-11.0) RBC 4.47 10*6/uL Low (4.60-6.10) HGB 14.3 g/dL (13.5-18.0) HCT 43.4 % (41.0-53.0) MCV 97.1 fL High (80.0-95.0) MCH 32.0 pg (27.0-32.0) MCHC 32.9 g/dL (32.0-36.0) RDW 14.5 % (10.5-14.5) PLT 172 10*3/uL (150-450) MPV 9.3 fL (7.1-10.7) Basic Metabolic Panel 09/02/[address] [facility] [address] [phone] Glucose 136 mg/dL High 65-99 14 BUN 21 mg/dL 8-27 Creatinine 1.24 mg/dL 0.76-1.27 eGFR If NonAfricn Am 62 mL/min/1.73 >59 eGFR If Africn Am 72 mL/min/1.73 >59 BUN/Creatinine Ratio 17 10-24 Sodium 144 mmol/L 134-144 Potassium 4.6 mmol/L 3.5-5.2 Chloride 105 mmol/L 96-106 Carbon Dioxide, Total 24 mmol/L 20-29 Calcium 9.4 mg/dL 8.6-10.2 Laboratory test finding 09/02/[address] [facility] [address] [phone] Uric Acid 4.9 mg/dL 3.7-8.6 15 Vitamin D, 25-Hydroxy 31.7 ng/mL 30.0-100.0 16 1 PERFORMED BY [facility] 2 PERFORMED BY [facility] 3 -- NORMAL [...] 21) 04:27 PM SOLEDAD KHANNA Admitted to [facility] for IV antibiotics 10 THIS ASSAY AMPLIFIES [...] VIRUS THAT CAUSES COVID-19. EMAILED TO [facility] AT 0374 [address]Q [id number] [place] [id number]. 12 SPECIMEN DESCRIPTION MIDSTREAM URINE,CLEAN CATCH CULTURE [...] this repo rt has been sent to [phone] 15 Therapeutic target for gout patients: <6.0 16 Vitamin D deficiency has bee n defined by the [place] of [employer] and an Endocrine Society practice guideline as a level of serum 25-OH vitamin D less than 20 ng/mL (1,2). The Endocrine Society went on to further define vitamin D insufficiency as a level between 21 and 29 ng/mL (2). 1. IOM ([place] of [employer]). 2010. Di etary reference intakes for calcium and D. [place]: The National Academies Press. 2. Deonna MF, Dustin TERRY, Mekhi aparicio OCONNELL, et al. Evaluation, treatment, and prevention of vitamin D deficiency: an Endocrine Society clinical practice guideline. JCEM. 2010; 96(7):1911-30. Procedures Date Code Description Status 02/25/2020 87072 Cystourethroscopy, With Removal Or Manipulation Of Calculus Completed 02/25/2020 07225 Cystourethroscopy, With Insertio n Of Indwelling Ureteral Stent Completed 01/20/2020 42180 Retrograde,Pyelogram,Urography I nterpretation Completed 01/20/[address] Abdomen/Pelvis Wo Contrast Co mpleted 01/20/2020 98834 Cystourethroscopy, With Insertio n Of Indwelling Ureteral Stent Completed 09/22/2019 45176 Ultrasound Retro Renal Real Time With Image Tech Comp Completed 09/22/2019 73728 Ultrasound Retro Renal Real Time With Image Tech Comp Completed 03/26/2012 96544231 Colonoscopy Completed Medical Devices Active Inactive Description Device Identifier Assigning Authority 11/05/2017 Abdominal hernia surgical mesh c omposite-polymer ()[id number] FDA 11/05/2017 Abdominal hernia surgical mesh c omposite-polymer ()[id number] FDA Encounters Type Date Location Provider Dx Diagnosis Office Visit 02/02/2020 12:40p [facility] Sarthak Milligan MD N20.1 Calculus of ureter Office Visit 09/22/2019 2:30p [facility] Soledad Khanna NP N20.0 Calculus of kidney R82.991 Hypocitraturia R82.992 Hyperoxaluria Z12.5 Encounter for screening for malignant neoplasm of prostate N52.9 Male erectile dysfunction, u nspecified Assessments Date Code Description Provider 02/25/2020 N20.1 Calculus of ureter Sarthak swanson MD 02/02/2020 N20.1 Calculus of ureter Sarthak swanson MD 01/23/2020 N39.0 Urinary tract infection, site no t specified Linnette Monika,RAM PRESS OPERATOR 01/23/2020 R50.9 Fever, unspecified Linnette Monika,FN P 01/21/2020 N20.1 Calculus of ureter Linnette Frank, P 01/21/2020 N39.0 Urinary tract infection, site no t specified Linnette Monika,RAM PRESS OPERATOR 01/20/2020 N13.2 Hydronephrosis with renal and ur eteral calculous obstruction Sarthak Milligan MD 01/20/2020 N20.0 Calculus of kidney Sarthak swanson MD 01/20/2020 N20.1 Calculus of ureter Raji Moreira MD 01/20/2020 N13.2 Hydronephrosis with renal and ur eteral calculous obstruction Soledad Khanna NP 09/22/2019 N20.0 Calculus of kidney Sarthak swanson MD 09/22/2019 N20.0 Calculus of kidney [facility] 09/22/2019 N20.0 Calculus of kidney Soledad schreiber NP 09/22/2019 R82.991 Hypocitraturia Soledad Khanna NP 09/22/2019 R82.992 Hyperoxaluria Soledad Khanna NP 09/22/2019 Z12.5 Encounter for screening for gavin gnant neoplasm of prostate Soledad Khanna NP 09/22/2019 N52.9 Male erectile dysfunction, unspe cified Soledad Khanna NP Plan of Treatment Future Appointment(s):* 03/08/2020 12:50 pm - Sarthak Milligan MD at [facility]/ [facility] * 09/21/2020 11:15 am - Soledad Khanna NP at [facility]/ [facility] * 09/21/2020 10:30 am - [facility] at [facility]/ [facility] Urology Functional Status Description No Information Available Mental Status Description No Information Available Referrals Refer to Dr Reason for Referral Status Appt Date Sarthak Milligan M.D. Per [facility] With Online: [facility] CoPay :$300 - [facility] SURGICAL COPAY 300 SURG Final CoPay For This Member= $300.0 Per [employer] With Online: CPT 61855,10068,18686,52 353,02180,37632,83073- authorization required. Submitted authorization for above codes. The request for services detailed below have been approved Reference Number: [id number] Authorization Number: [id number] Valid 02/25/20-04/25/20 02/17/20 ab Created [facility] [address] [place] [id number] [phone] Sarthak Milligan M.D. Per [facility]K[employer] With online CPT: 39729 Description: CT ABDOMEN & PELVIS W/O Auth: [id number] Review Date: 01/20/2020 9:16:13 AM Expiration Date: 03/05/2020 Status: Your case has been Approved. 01/20/2020 [place] Created [facility] [address] [place] [phone]
--- OUTSIDE RECORDS SUMMARY | 2020-04-21 16:27 | CCD ---
Continuity of Care Document (CCD) Created on: 02/02/2020 Jose Villatoro External Reference #: [id number] : [id number] Sex: Male Author Author Jose MILLIGAN MD Organization Unknown Address [address] [place] [address] [address] [place] [address] Phone [phone] Care Team Providers Care International Coordinator Name Role Phone Damian Matson M.D. AUTM [phone] Robert Alvarez M.D. AUTM [phone] Leroy Triana M.D. AUTM [phone] Problems Active Problems Provider Date Preoperative cardiovascular [...] Chest pain Onset: 11/23/2015 Coronary arteriosclerosis [place] artery Onset: 11/25/2015 Hypertensive disorder Onset: 11/25/2015 Irreducible incisional hernia Onset: Morbid obesity Onset: 11/13/2016 Pericardial effusion Onset: 12/08/2015 Pulmonary embolism Onset: 12/06/2015 Type 2 diabetes mellitus without complication Onset: 11/23/2015 Obstructed incisional ventral hernia Ons et: 08/31/2017 Wound dehiscence Onset: 01/31/2016 Ureteric stone Maksim Benitez MD Onset: 05/16/2018 Urinary tract infectious disease Maksim Benitez MD Onse t: 05/16/2018 Social History Type Date Description Comments Sex Unknown Tobacco Use Start: Unknown End: Unknown Former Cigarette Smo ker 2ppd x 15 years Smoking Status Reviewed: 02/02/20 Former Cigarette Smoker 2ppd x 15 years ETOH Use Patient denies alcohol use Allergies, Adverse Reactions, Alerts Active Allergies Reaction Severity Comments Date Penicillin 11/22/2015 Penicillins 11/22/2017 Medications Active Medications SIG Qnty Indications Ordering Provide r Date Oxycodone-Acetaminophen 5-325mg Ta blets take 1-2 tablets by mouth every 6 (six) hours as needed for pain max daily amount: 6 tablets 20tabs N20.1 Maksim Benitez MD 019 Atorvastatin Calcium 80mg Tablets 1 by mouth [...] mouth every day Robert Alvarez M.D. 11/22/2015 Tamsulosin HCL 0.4mg Capsules Take 1 Capsule By Mouth Once Daily 30 Minutes After The Same Meal Each Day Unknown Joint Health Tablets Unknown Stool Softener 100mg Capsules 1 by mouth every day Unknown Lyrica 150mg Capsules 1 by mouth three times a day Unknown Zofran 4mg Tablets prn Unknown Nystatin [id number] Powder Apply 1 application topically 2 (two) times a day Unknow n Duloxetine HCL 60mg Caps DR Part Take 60 mg by mouth daily Unknown Calcium + D3 Unknown Multi Vitamin Unknown Co Q-10 Unknown Immunizations Description No Information Available Vital Signs Date Vital Result Comment 02/02/2020 12:50pm Height 68 inches 5'8" Weight 298.00 lb Weight 135.173 kg BMI (Body Mass Index) 45.3 kg/m2 BP Systolic 115 mmHg BP Diastolic 85 mmHg Heart Rate 68 /min 01/20/2020 9:34am Height 68 inches 5'8" Weight 298.00 lb Weight 135.173 kg BMI (Body Mass Index) 45.3 kg/m2 BP Systolic 133 mmHg BP Diastolic 84 mmHg Heart Rate 73 /min Body Temperature 97.0 F Results Test Acquired Date Facility Test Result H/L Range Note 230 Ua Routine 02/02/2020 [facility] REF TO DR ADDRESS ON ORDER FOR (315)- - Ua Glucose Negative Ua Protein Negative Ua Nitrite Negative Ua Leuko Small Ua Blood Moderate Ua Color Not Entered Ua Ketones Negative Ua Clarity Not Entered Ua Specific Basalt 1.015 1.003-1.030 Ua PH 5.5 5.0-7.5 Ua Bilirubin Negative Ua Urobilinogen 0.2 E.U./dL 0.0-1.0 CBC Without Diff 01/25/2020 [facility] [address] [place] [address] [phone] WBC 10.1 10*3/uL (4.1-11.0) RBC 3.88 10*6/uL Low (4.60-6.10) HGB 12.6 g/dL Low (13.5-18.0) HCT 37.6 % Low (41.0-53.0) MCV 96.8 fL High (80.0-95.0) MCH 32.3 pg High (27.0-32.0) MCHC 33.4 g/dL (32.0-36.0) RDW 14.2 % (10.5-14.5) PLT 192 10*3/uL (150-450) MPV 8.8 fL (7.1-10.7) Basic Metabolic Panel 01/25/2020 [address] [place], [place] [id number] [phone] Sodium 145 mmol/L (136-145) Potassium 3.8 mmol/L (3.6-5.2) Chloride 115 mmol/L High (100-108) Co2 23 mmol/L (22-31) Anion Gap 7 mmol/L (7-16) Urea Nitrogen 17 mg/dL (7-24) Creatinine 1.29 mg/dL (0.80-1.30) BUN/Creat Ratio 13.2 RATIO (10.0-20.0) Glucose 192 mg/dL High (70-99) Calcium 8.0 mg/dL Low (8.4-10.2) GFR 56 ml/min/1.73m2 Low (>59) GFR ( Amer) >60 ml/min/1.73m2 (>59) GFR Interpretation <SEE NOTE> 1 CBC Without Diff 01/24/[address] [address] [phone] WBC 11.8 10*3/uL High (4.1-11.0) RBC 4.04 10*6/uL Low (4.60-6.10) HGB 12.9 g/dL Low (13.5-18.0) HCT 39.2 % Low (41.0-53.0) MCV 97.1 fL High (80.0-95.0) MCH 31.8 pg (27.0-32.0) MCHC 32.8 g/dL (32.0-36.0) RDW 14.1 % (10.5-14.5) PLT 152 10*3/uL (150-450) MPV 9.0 fL (7.1-10.7) Basic Metabolic Panel 01/24/[address] [place] [address] [phone] Sodium 141 mmol/L (136-145) Potassium 3.7 mmol/L (3.6-5.2) Chloride 112 mmol/L High (100-108) Co2 21 mmol/L Low (22-31) Anion Gap 8 mmol/L (7-16) Urea Nitrogen 19 mg/dL (7-24) Creatinine 1.44 mg/dL High (0.80-1.30) BUN/Creat Ratio 13.2 RATIO (10.0-20.0) Glucose 197 mg/dL High (70-99) Calcium 7.7 mg/dL Low (8.4-10.2) GFR 50 ml/min/1.73m2 Low (>59) GFR ( Amer) >60 ml/min/1.73m2 (>59) GFR Interpretation <SEE NOTE> 2 CBC Without Diff 01/23/2020 [facility] [address] [place] [address] [phone] WBC 14.4 10*3/uL High (4.1-11.0) RBC 3.93 10*6/uL Low (4.60-6.10) HGB 12.4 g/dL Low (13.5-18.0) HCT 37.8 % Low (41.0-53.0) MCV 96.3 fL High (80.0-95.0) MCH 31.6 pg (27.0-32.0) MCHC 32.8 g/dL (32.0-36.0) RDW 14.4 % (10.5-14.5) PLT 161 10*3/uL (150-450) MPV 9.1 fL (7.1-10.7) Basic Metabolic Panel 01/23/2020 [facility] [address] [place] [address] [place] [address] [phone] Sodium 138 mmol/L (136-145) Potassium 3.6 mmol/L (3.6-5.2) Chloride 106 mmol/L (100-108) Co2 25 mmol/L (22-31) Anion Gap 7 mmol/L (7-16) Urea Nitrogen 20 mg/dL (7-24) Creatinine 1.56 mg/dL High (0.80-1.30) BUN/Creat Ratio 12.8 RATIO (10.0-20.0) Glucose 142 mg/dL High (70-99) Calcium 7.7 mg/dL Low (8.4-10.2) GFR 45 ml/min/1.73m2 Low (>59) GFR ( Amer) 55 ml/min/1.73m2 Low (>59) GFR Interpretation <SEE NOTE> 3 Laboratory test finding 01/23/2020 [address] [place] [address] [phone] Troponin I <0.05 ng/mL (<0.05) 4 CBC Without Diff 01/21/[address] [address] [phone] WBC 10.5 10*3/uL (4.1-11.0) RBC 4.04 10*6/uL Low (4.60-6.10) HGB 12.9 g/dL Low (13.5-18.0) HCT 39.0 % Low (41.0-53.0) MCV 96.6 fL High (80.0-95.0) MCH 31.9 pg (27.0-32.0) MCHC 33.0 g/dL (32.0-36.0) RDW 14.3 % (10.5-14.5) PLT 146 10*3/uL Low (150-450) MPV 8.9 fL (7.1-10.7) Basic Metabolic Panel 01/21/[address] [place] [address] [phone] Sodium 142 mmol/L (136-145) Potassium 4.0 mmol/L (3.6-5.2) Chloride 110 mmol/L High (100-108) Co2 26 mmol/L (22-31) Anion Gap 6 mmol/L Low (7-16) Urea Nitrogen 22 mg/dL (7-24) Creatinine 1.36 mg/dL High (0.80-1.30) BUN/Creat Ratio 16.2 RATIO (10.0-20.0) Glucose 127 mg/dL High (70-99) Calcium 7.6 mg/dL Low (8.4-10.2) GFR 53 ml/min/1.73m2 Low (>59) GFR ( Amer) >60 ml/min/1.73m2 (>59) GFR Interpretation <SEE NOTE> 5 230 Ua Routine 01/20/2020 [facility] REF TO DR ADDRESS ON ORDER FOR (241)- - Ua Glucose Negative Ua Protein Negative Ua Nitrite Positive Ua Leuko Small Ua Blood Moderate Ua Color Not Entered Ua Ketones Negative Ua Clarity Not Entered Ua Specific Basalt 1.020 1.003-1.030 Ua PH 5.5 5.0-7.5 Ua Bilirubin Negative Ua Urobilinogen 0.2 E.U./dL 0.0-1.0 Laboratory test finding 01/20/2020 [facility] [address] [phone] Urine Culture SPECIMEN DESCRIP <SEE NOTE> 6, 7 Coronavirus By PCR 01/20/[address] [address] [phone] Specimen Description NASOPHARYNGEAL Covid19 Result NOT DETECTED (Ndet) 8 Comment THE U.S. FDA HAS <SEE NOTE> 9 First Test UNKNOWN Employed In [facility] UNKNOWN Symptomatic UNKNOWN Date Of Sympt Onset NOT APPLICABLE Hospitalized UNKNOWN Icu UNKNOWN Congregate Care Set UNKNOWN NO Laboratory test finding 01/20/[address] [address] [phone] Urine Culture SPECIMEN DESCRIP <SEE NOTE> 10 Urine Micro Only 01/20/[address] [address] [phone] Urine WBC * 50-100 [HPF] (0-5) Urine RBC * 25-50 [HPF] (0-2) Epithelial Cells 2+ [HPF] Bacteria 1+ [HPF] Urinalysis RFX 01/20/[address] [address] [phone] Color YELLOW Appearance CLOUDY Spec Grav Urine 1.017 (1.003-1.030) PH Urine 5.5 (5.0-7.5) Leuk Esterase 2+ Abnormal (Neg) Nitrite Urine POSITIVE Abnormal (Neg) Protein Urine NEGATIVE (Neg) Glucose Urine NEGATIVE (Neg) Ketone Urine NEGATIVE (Neg) Urobilinogen 1.0 mg/dL (0-1.0) Bilirubin Urine NEGATIVE (Neg) Blood/HGB Urine 3+ Abnormal (Neg) Basic Metabolic Panel 01/20/2020 [place] [address] [place] [address] [phone] Sodium 142 mmol/L (136-145) Potassium 4.7 mmol/L (3.6-5.2) Chloride 108 mmol/L (100-108) Co2 26 mmol/L (22-31) Anion Gap 8 mmol/L (7-16) Urea Nitrogen 25 mg/dL High (7-24) Creatinine 1.50 mg/dL High (0.80-1.30) BUN/Creat Ratio 16.7 RATIO (10.0-20.0) Glucose 147 mg/dL High (70-99) Calcium 8.6 mg/dL (8.4-10.2) GFR 47 ml/min/1.73m2 Low (>59) GFR ( Amer) 57 ml/min/1.73m2 Low (>59) GFR Interpretation <SEE NOTE> 11 CBC Without Diff 01/20/2020 [address] [place] [address] [phone] WBC 15.5 10*3/uL High (4.1-11.0) RBC 4.47 10*6/uL Low (4.60-6.10) HGB 14.3 g/dL (13.5-18.0) HCT 43.4 % (41.0-53.0) MCV 97.1 fL High (80.0-95.0) MCH 32.0 pg (27.0-32.0) MCHC 32.9 g/dL (32.0-36.0) RDW 14.5 % (10.5-14.5) PLT 172 10*3/uL (150-450) MPV 9.3 fL (7.1-10.7) Basic Metabolic Panel 09/02/2019 [facility] [address] [phone] Glucose 136 mg/dL High 65-99 12 BUN 21 mg/dL 8-27 Creatinine 1.24 mg/dL 0.76-1.27 eGFR If NonAfricn Am 62 mL/min/1.73 >59 eGFR If Africn Am 72 mL/min/1.73 >59 BUN/Creatinine Ratio 17 10-24 Sodium 144 mmol/L 134-144 Potassium 4.6 mmol/L 3.5-5.2 Chloride 105 mmol/L 96-106 Carbon Dioxide, Total 24 mmol/L 20-29 Calcium 9.4 mg/dL 8.6-10.2 Laboratory test finding 09/02/[address] [facility] [address] [phone] Uric Acid 4.9 mg/dL 3.7-8.6 13 Vitamin D, 25-Hydroxy 31.7 ng/mL 30.0-100.0 14 [facility] Adult Urine 08/22/2019 [facility] [phone] pH 5.441 Low 5.800-6.200 15 24 hr Uric Acid 0.317 g/d <0.800 16 24 hr Calcium 80 mg/d <250 17 24 hr Oxalate 105 mg/d High 20-40 18 24 hr Citrate 109 mg/d Low >450 19 Urine Volume 1.98 L/d 0.50-4.00 20 Supersaturation CaOx 7.14 6.00-10.00 21 Supersaturation CaP 0.15 Low 0.50-2.00 22 Supersaturation Uric Acid 0.79 <1.00 23 Laboratory test finding 08/22/2019 [facility] [phone] Interpretations Collection A Comments 24 Dietary Factors Collection A 08/22/2019 [facility] [phone] 24 hr Sulfate 41 mEq/d 20-80 25 24 hr Chloride 158 mmol/d 70-250 26 24 hr Ammonium 47 mmol/d 15-60 27 24 hr Potassium 54 mmol/d 20-100 28 24 hr Sodium 179 mmol/d High 50-150 29 24 hr Phosphorus 1.359 g/d High 0.60-1.20 30 24 hr Urea Nitrogen 13.42 g/d 6.00-14.00 31 24 hr Magnesium 121 mg/d High 30-120 32 Protein Catabolic Rate 0.8 g/kg/d 0.8-1.4 33 Renal Factors Collection A 08/22/2019 [facility] [phone] 24 hr Creatinine 1577 mg/d 34 24 hr Creatinine per Kilogram Body Weight 12.3 mg/d/kg 11.9-24.4 35 24 hr Calcium per Kilogram Body Weight 0.6 mg/d/kg <4 .0 36 24 hr Calcium per 24 hr Creatinine 50 mg/g 34-196 37 Laboratory test finding 08/22/2019 [facility] [phone] PDF [id number] SEE IMAGE 1 -- NORMAL KIDNEY FUNCTION OR MILD DISEASE - GFR >OR= 60 CHRONIC KIDNEY DISEASE - GFR 15 - 59 RENAL FAILURE - GFR <15 -- Est. GFR calculation based on the MDRD study equation, which assumes a steady state for creatinine. Est. GFR should not be used for medication dosing. 2 -- NORMAL KIDNEY FUNCTION OR MILD DISEASE - GFR >OR= 60 CHRONIC KIDNEY DISEASE - GFR 15 - 59 RENAL FAILURE - GFR <15 -- Est. GFR calculation based on the MDRD study equation, which assumes a steady state for creatinine. Est. GFR should not be used for medication dosing. 3 -- NORMAL KIDNEY FUNCTION OR MILD DISEASE - GFR >OR= 60 CHRONIC KIDNEY DISEASE - GFR 15 - 59 RENAL FAILURE - GFR <15 -- Est. GFR calculation based on the MDRD study equation, which assumes a steady state for creatinine. Est. GFR should not be used for medication dosing. 4 Less than 0.05: Myocardial i njury unlikely Greater than or equal to 0.05: Highly suggestive of myocardial injury Correlation with rise and/or fall of serial troponins, clinical symptoms and ECG changes is necessary. 5 -- NORMAL KIDNEY FUNCTION OR MILD DISEASE - GFR >OR= 60 CHRONIC KIDNEY DISEASE - GFR 15 - 59 RENAL FAILURE - GFR <15 -- Est. GFR calculation based on the MDRD study equation, which assumes a steady state for creatinine. Est. GFR should not be used for medication dosing. 6 SPECIMEN DESCRIPTION MIDSTREAM URINE,CLEAN CATCH CULTURE RESULTS [...] SUSCEPTIBLE TRIMETH/SULFA 8/152 RESISTANT CIPROFLOXACIN >=8 RESISTANT 7 01/22/20 (Thr Jan 21) 04:27 PM SOLEDAD KHANNA Admitted to [facility] for IV antibiotics 8 THIS ASSAY AMPLIFIES AND DET ECTS THE TARGET RNA USING REAL-TIME PCR. NEGATIVE 2019_NCOV RT-PCR RESULTS DO NOT PRECLUDE 2019_NCOV INFECTION AND SHOULD NOT BE USED THE SOLE BASIS FOR PATIENT MANAGEMENT DECISIONS. 9 THE U.S. FDA HAS MADE THIS T EST AVAILABLE UNDER AN EMERGENCY USE AUTHORIZATION (EUA) FOR THE DETECTION AND/OR DIAGNOSIS OF THE VIRUS THAT CAUSES COVID-19. EMAILED TO [facility] AT [address] [place] [id number] [place] [address]. 10 SPECIMEN DESCRIPTION MIDSTREAM URINE,CLEAN CATCH CULTURE RESULTS [...] SUSCEPTIBLE TRIMETH/SULFA 8/152 RESISTANT CIPROFLOXACIN >=8 RESISTANT 11 -- NORMAL KIDNEY FUNCTION OR MILD DISEASE - GFR >OR= 60 CHRONIC KIDNEY DISEASE - GFR 15 - 59 RENAL FAILURE - GFR <15 -- Est. GFR calculation based on the MDRD study equation, which assumes a steady state for creatinine. Est. GFR should not be used for medication dosing. 12 A courtesy copy of this repo rt has been sent to [phone] 13 Therapeutic target for gout patients: <6.0 14 Vitamin D deficiency has bee n defined by the [place] of Medicine and an Endocrine Society practice guideline as a level of serum 25-OH vitamin D less than 20 ng/mL (1,2). The Endocrine Society went on to further define vitamin D insufficiency as a level between 21 and 29 ng/mL (2). 1. IOM ([place] of [employer]). 2010. Di etary reference intakes for calcium and D. [place]: The National Academies Press. 2. Deonna MORENO, Dustin [place], Mekhi aparicio OCONNELL, et al. Evaluation, treatment, and prevention of vitamin D deficiency: an Endocrine Society clinical practice guideline. JCEM. 2010; 96(7):1911-30. 15 Source of Specimen: Urine This value shows an increased risk factor of 4, where 0 is normal and 7 is extremely high. 16 Source of Specimen: Urine 17 Source of Specimen: Urine 18 Source of Specimen: Urine This value shows an increased risk factor of 5, where 0 is normal and 7 is extremely high. 19 Source of Specimen: Urine This value shows an increased risk factor of 5, where 0 is normal and 7 is extremely high. 20 Source of Specimen: Urine This value shows an increased risk factor of 1, where 0 is normal and 7 is extremely high. 21 Source of Specimen: Urine This value shows an increased risk factor of 3, where 0 is normal and 7 is extremely high. 22 Source of Specimen: Urine 23 Source of Specimen: Urine 24 Source of Specimen: Urine : Urine pH remains low. Despite low pH, uric acid stone risk is not elevated, in part, because uric acid may have precipitated in vivo or in vitro. As urine pH is increased by treatment, uric acid excretion rate may increase. Our records do not show that alkali has been prescribed. Given low urine pH and evidence of uric acid crystallization in vivo or in vitro consider prescribing alkali, or if already prescribed increasing the dose. If potassium citrate is used, monitor serum potassium if renal function impaired and repeat urine studies in 6 weeks. : Urine oxalate has fallen but remains severely elevated (was 168 and now is 105 mg/d). Kidney da mage and loss of renal function are possible if this level of hyperoxaluria persists. The patient reports the presence of bowel disease or bowel surgery. Hyperoxaluria may be due to bowel disease or bowel surgery (enteric hyperoxaluria). Our records do not report that cholestyramine or oral calcium supplements are prescribed. Consider use of cholestyramine (2 to 4 grams) or oral calcium carbonate (1 gram) with each meal to reduce urine oxalate excretion. Recheck in 6 to 12 weeks and adjust dose as needed. Consider efforts to reduce diet oxalate and fat if this has not already been accomplished. : Urine citrate remains low. Our records do not report that potassium citrate has been prescribed. Since urine citrate is low and SS CaP is not high consider adding potassium citrate. Recheck in 6 weeks to confirm citrate has risen and SS CaP is not high. Hypokalemia, urinary infection, bowel disease, and reduced kidney function are all possible causes of low urine citrate. High protein intake is not a likely cause of the low urine citrate (PCR = 0.8 g/kg/d, sulfate = 41 meq/d). : Urine volume has fallen to borderline low (was 3.03 and now is 1.98 L/d). Low urine volume in a stone former should always be corrected if possible. A good clinical goal is 2.5 liters daily. Recheck in 6 weeks and adjust fluid intake as needed. : Calcium oxalate stone risk (SS CaOx) has risen moderately and is high (was 4.50 and now is 7.14). In general, urine calcium, oxalate, citrate, and volume are the main factors responsible. The graphic display indicates which are most deviated from normal. Management suggestions are as noted above. 25 Source of Specimen: Urine 26 Source of Specimen: Urine 27 Source of Specimen: Urine 28 Source of Specimen: Urine 29 Source of Specimen: Urine 30 Source of Specimen: Urine This value shows an increased risk factor of 1, where 0 is normal and 7 is extremely high. 31 Source of Specimen: Urine 32 Source of Specimen: Urine 33 Source of Specimen: Urine 34 Source of Specimen: Urine 35 Source of Specimen: Urine 36 Source of Specimen: Urine 37 Source of Specimen: Urine Procedures Date Code Description Status 01/20/2020 49974 Retrograde,Pyelogram,Urography I nterpretation Completed 01/20/[address] Abdomen/Pelvis Wo Contrast Co mpleted 01/20/2020 91799 Cystourethroscopy, With Insertio n Of Indwelling Ureteral Stent Completed 09/22/2019 30694 Ultrasound Retro Renal Real Time With Image Tech Comp Completed 09/22/2019 72947 Ultrasound Retro Renal Real Time With Image Tech Comp Completed 03/26/2012 [id number] Colonoscopy Completed Medical Devices Description No Information Available Encounters Type Date Location Provider Dx Diagnosis Office Visit 02/02/2020 12:40p [facility] Sarthak Milligan MD N20.1 Calculus of ureter Office Visit 09/22/2019 2:30p [facility] Soledad Khanna NP N20.0 Calculus of kidney R82.991 Hypocitraturia R82.992 Hyperoxaluria Z12.5 Encounter for screening for malignant neoplasm of prostate N52.9 Male erectile dysfunction, u nspecified Assessments Date Code Description Provider 02/02/2020 N20.1 Calculus of ureter Sarthak swanson MD 01/20/2020 N13.2 Hydronephrosis with renal and ur eteral calculous obstruction Sarthak Milligan MD 01/20/2020 N20.0 Calculus of kidney Sarthak swanson MD 01/20/2020 N20.1 Calculus of ureter Raji Moreira MD 01/20/2020 N13.2 Hydronephrosis with renal and ur eteral calculous obstruction Soledad Khanna NP 09/22/2019 N20.0 Calculus of kidney Sarthak swanson MD 09/22/2019 N20.0 Calculus of kidney NM 09/22/2019 N20.0 Calculus of kidney Soledad schreiber NP 09/22/2019 R82.991 Hypocitraturia Soledad Khanna NP 09/22/2019 R82.992 Hyperoxaluria Soledad Khanna NP 09/22/2019 Z12.5 Encounter for screening for gavin gnant neoplasm of prostate Soledad Khanna NP 09/22/2019 N52.9 Male erectile dysfunction, unspe cified Soledad Khanna NP Plan of Treatment Future Appointment(s):* 09/21/2020 11:15 am - Soledad Khanna NP at [facility] * 09/21/2020 10:30 am - NM at [facility] Functional Status Description No Information Available Mental Status Description No Information Available Referrals Refer to Dr Reason for Referral Status Appt Date Sarthak Milligan M.D. Per [employer] CPT: 75195 Description: CT ABDOMEN & PELVIS W/O Auth: [id number] Review Date: 01/20/2020 9:16:13 AM Expiration Date: 03/05/2020 Status: Your case has been Approved. 01/20/2020 [place] Created [facility] [address] [place] [phone]
--- OUTSIDE RECORDS SUMMARY | 2020-04-21 16:27 | CCD | Continuity of Care Document ---
Author Author Jose MILLIGAN MD Organization Unknown Address [address] [place] [address] [address] [place] [address] Phone [phone] Care Team Providers Care Granite Cutter Apprentice Name Role Phone Damian Matson M.D. AUTM [phone] Robert Alvarez M.D. AUTM [phone] Leroy Triana M.D. AUTM [phone] Problems Active Problems Provider Date Preoperative cardiovascular [...] Chest pain Onset: 11/23/2015 Coronary arteriosclerosis in [place] artery Onset: 11/25/2015 Hypertensive disorder Onset: 11/25/2015 [...] Unknown Zofran 4mg Tablets prn Unknown Nystatin 275151Ahxr/GM Powder Apply 1 application topically 2 (two) [...] Negative Ua Clarity Not Entered Ua Specific [place] 1.015 1.003-1.030 Ua PH 5.5 5.0-7.5 Ua Bilirubin Negative Ua Urobilinogen 0.2 E.U./dL 0.0-1.0 CBC Without Diff 01/25/2020 [facility] [address] [place] [address] [phone] WBC 10.1 10*3/uL (4.1-11.0) RBC 3.88 10*6/uL Low (4.60-6.10) HGB 12.6 g/dL Low (13.5-18.0) HCT 37.6 % Low (41.0-53.0) MCV 96.8 fL High (80.0-95.0) MCH 32.3 pg High (27.0-32.0) MCHC 33.4 g/dL (32.0-36.0) RDW 14.2 % (10.5-14.5) PLT 192 10*3/uL (150-450) MPV 8.8 fL (7.1-10.7) Basic Metabolic Panel 01/25/2020 [address] [place], [place] [address] [phone] Sodium 145 mmol/L (136-145) Potassium 3.8 mmol/L [...] <SEE NOTE> 1 CBC Without Diff 01/24/[address] [address] [phone] WBC 11.8 10*3/uL High (4.1-11.0) RBC 4.04 10*6/uL Low (4.60-6.10) HGB 12.9 g/dL Low (13.5-18.0) HCT 39.2 % Low (41.0-53.0) MCV 97.1 fL High (80.0-95.0) MCH 31.8 pg (27.0-32.0) MCHC 32.8 g/dL (32.0-36.0) RDW 14.1 % (10.5-14.5) PLT 152 10*3/uL (150-450) MPV 9.0 fL (7.1-10.7) Basic Metabolic Panel 01/24/[address] [place] [address] [phone] Sodium 141 mmol/L (136-145) Potassium 3.7 mmol/L [...] <SEE NOTE> 2 CBC Without Diff 01/23/2020 [facility] [address] [place] [address] [phone] WBC 14.4 10*3/uL High (4.1-11.0) RBC 3.93 10*6/uL Low (4.60-6.10) HGB 12.4 g/dL Low (13.5-18.0) HCT 37.8 % Low (41.0-53.0) MCV 96.3 fL High (80.0-95.0) MCH 31.6 pg (27.0-32.0) MCHC 32.8 g/dL (32.0-36.0) RDW 14.4 % (10.5-14.5) PLT 161 10*3/uL (150-450) MPV 9.1 fL (7.1-10.7) Basic Metabolic Panel 01/23/2020 [facility] [address] [place] [address] [place] [address] [phone] Sodium 138 mmol/L (136-145) Potassium 3.6 mmol/L [...] <SEE NOTE> 3 Laboratory test finding 01/23/2020 [address] [place] [address] [phone] Troponin I <0.05 ng/mL (<0.05) 4 CBC Without Diff 01/21/[address] [address] [phone] WBC 10.5 10*3/uL (4.1-11.0) RBC 4.04 10*6/uL Low (4.60-6.10) HGB 12.9 g/dL Low (13.5-18.0) HCT 39.0 % Low (41.0-53.0) MCV 96.6 fL High (80.0-95.0) MCH 31.9 pg (27.0-32.0) MCHC 33.0 g/dL (32.0-36.0) RDW 14.3 % (10.5-14.5) PLT 146 10*3/uL Low (150-450) MPV 8.9 fL (7.1-10.7) Basic Metabolic Panel 01/21/[address] [place] [address] [phone] Sodium 142 mmol/L (136-145) Potassium 4.0 mmol/L [...] REF TO DR ADDRESS ON ORDER FOR (240)- - Ua Glucose Negative Ua Protein Negative Ua Nitrite Positive Ua Leuko Small Ua Blood Moderate Ua Color Not Entered Ua Ketones Negative Ua Clarity Not Entered Ua Specific [place] 1.020 1.003-1.030 Ua PH 5.5 5.0-7.5 Ua Bilirubin Negative Ua Urobilinogen 0.2 E.U./dL 0.0-1.0 Laboratory test finding 01/20/2020 [facility] [address] [phone] Urine Culture SPECIMEN DESCRIP <SEE NOTE> 6, 7 Coronavirus By PCR 01/20/[address] [address] [phone] Specimen Description NASOPHARYNGEAL Covid19 Result NOT DETECTED (Ndet) 8 Comment THE U.S. FDA HAS <SEE NOTE> 9 First Test UNKNOWN Employed In [facility] [facility] [employer] UNKNOWN Symptomatic UNKNOWN Date Of Sympt Onset NOT APPLICABLE Hospitalized UNKNOWN Icu UNKNOWN Congregate Care Set UNKNOWN NO Laboratory test finding 01/20/[address] [address] [phone] Urine Culture SPECIMEN DESCRIP <SEE NOTE> 10 Urine Micro Only 01/20/[address] [address] [phone] Urine WBC * 50-100 [HPF] (0-5) Urine RBC * 25-50 [HPF] (0-2) Epithelial Cells 2+ [HPF] Bacteria 1+ [HPF] Urinalysis RFX 01/20/[address] [address] [phone] Color YELLOW Appearance CLOUDY Spec Grav Urine 1.017 (1.003-1.030) PH Urine 5.5 (5.0-7.5) Leuk Esterase 2+ Abnormal (Neg) Nitrite Urine POSITIVE Abnormal (Neg) Protein Urine NEGATIVE (Neg) Glucose Urine NEGATIVE (Neg) Ketone Urine NEGATIVE (Neg) Urobilinogen 1.0 mg/dL (0-1.0) Bilirubin Urine NEGATIVE (Neg) Blood/HGB Urine 3+ Abnormal (Neg) Basic Metabolic Panel 01/20/2020 [place] [address] [place] [address] [phone] Sodium 142 mmol/L (136-145) Potassium 4.7 mmol/L [...] <SEE NOTE> 11 CBC Without Diff 01/20/2020 [address] [place] [address] [phone] WBC 15.5 10*3/uL High (4.1-11.0) RBC 4.47 10*6/uL Low (4.60-6.10) HGB 14.3 g/dL (13.5-18.0) HCT 43.4 % (41.0-53.0) MCV 97.1 fL High (80.0-95.0) MCH 32.0 pg (27.0-32.0) MCHC 32.9 g/dL (32.0-36.0) RDW 14.5 % (10.5-14.5) PLT 172 10*3/uL (150-450) MPV 9.3 fL (7.1-10.7) Basic Metabolic Panel 09/02/2019 [facility] [address] [phone] Glucose 136 mg/dL High 65-99 12 BUN 21 mg/dL 8-27 Creatinine 1.24 mg/dL 0.76-1.27 eGFR If NonAfricn Am 62 mL/min/1.73 >59 eGFR If Africn Am 72 mL/min/1.73 >59 BUN/Creatinine Ratio 17 10-24 Sodium 144 mmol/L 134-144 Potassium 4.6 mmol/L 3.5-5.2 Chloride 105 mmol/L 96-106 Carbon Dioxide, Total 24 mmol/L 20-29 Calcium 9.4 mg/dL 8.6-10.2 Laboratory test finding 09/02/[address] [facility] [address] [phone] Uric Acid 4.9 mg/dL 3.7-8.6 13 Vitamin D, 25-Hydroxy 31.7 ng/mL 30.0-100.0 14 [place] Adult Urine 08/22/2019 [facility] [phone] pH 5.441 Low 5.800-6.200 15 24 hr Uric Acid 0.317 g/d <0.800 16 24 hr Calcium 80 mg/d <250 17 24 hr Oxalate 105 mg/d High 20-40 18 24 hr Citrate 109 mg/d Low >450 19 Urine Volume 1.98 L/d 0.50-4.00 20 Supersaturation CaOx 7.14 6.00-10.00 21 Supersaturation CaP 0.15 Low 0.50-2.00 22 Supersaturation Uric Acid 0.79 <1.00 23 Laboratory test finding 08/22/2019 [facility] [phone] Interpretations Collection A Comments 24 Dietary Factors Collection A 08/22/2019 [facility] [phone] 24 hr Sulfate 41 mEq/d 20-80 25 [...] 0.8-1.4 33 Renal Factors Collection A 08/22/2019 [facility] [phone] 24 hr Creatinine 1577 mg/d 34 24 hr Creatinine per Kilogram Body Weight 12.3 mg/d/kg 11.9-24.4 35 24 hr Calcium per Kilogram Body Weight 0.6 mg/d/kg <4 .0 36 24 hr Calcium per 24 hr Creatinine 50 mg/g 34-196 37 Laboratory test finding 08/22/2019 [facility] [phone] PDF [id number] SEE IMAGE 1 -- NORMAL KIDNEY FUNCTION [...] 21) 04:27 PM SOLEDAD KHANNA Admitted to [facility] for IV antibiotics 8 THIS ASSAY AMPLIFIES [...] THE VIRUS THAT CAUSES COVID-19. EMAILED TO [facility] AT [address]70 [address]Z [id number] [place] [address]. 10 SPECIMEN DESCRIPTION MIDSTREAM URINE,CLEAN CATCH CULTURE [...] this repo rt has been sent to [phone] 13 Therapeutic target for gout patients: <6.0 14 Vitamin D deficiency has bee n defined by the [place] [employer] and an Endocrine Society practice guideline as a level of serum 25-OH vitamin D less than 20 ng/mL (1,2). The Endocrine Society went on to further define vitamin D insufficiency as a level between 21 and 29 ng/mL (2). 1. IOM ([place] of [employer]). 2010. Di etary reference intakes [...] Urine Procedures Date Code Description Status 01/20/2020 88619 Retrograde,Pyelogram,Urography I nterpretation Completed 01/20/[address] Abdomen/Pelvis Wo Contrast Co mpleted 01/20/2020 48564 Cystourethroscopy, With Insertio n Of Indwelling Ureteral Stent Completed 09/22/2019 86611 Ultrasound Retro Renal Real Time With Image Tech Comp Completed 09/22/2019 75882 Ultrasound Retro Renal Real Time With Image Tech Comp Completed 03/26/2012 [id number] Colonoscopy Completed Medical Devices Description No Information Available Encounters Type Date Location Provider Dx Diagnosis Office Visit 02/02/2020 12:40p [facility] Sarthak Milligan MD N20.1 Calculus of ureter Office Visit 09/22/2019 2:30p [facility] Soledad Khanna NP N20.0 Calculus of kidney R82.991 Hypocitraturia R82.992 Hyperoxaluria Z12.5 Encounter for screening for malignant neoplasm of prostate N52.9 Male erectile dysfunction, u nspecified Assessments Date Code Description Provider 02/02/2020 N20.1 Calculus of ureter Sarthak swanson MD 01/21/2020 N20.1 Calculus of ureter JONAS Marshall 01/21/2020 N39.0 Urinary tract infection, site no t specified MANDI Marshall 01/20/2020 N13.2 Hydronephrosis with renal and ur [...] Khanna NP Plan of Treatment Future Appointment(s):* 02/25/2020 11:00 am - aSrthak Milligan MD at [facility] * 09/21/2020 11:15 am - Soledad Khanna NP at [facility] * 09/21/2020 10:30 am - CAMERON RODARTE at [facility] Functional Status Description No Information Available Mental Status Description No Information Available Referrals Refer to Dr Reason for Referral Status Appt Date Sarthak Milligan M.D. Per [employer] online CPT: 61786 Description: CT ABDOMEN & PELVIS W/O Auth: [id number] Review Date: 01/20/2020 9:16:13 AM Expiration Date: 03/05/2020 Status: Your case has been Approved. 01/20/2020 [place] Created [facility] [address] [place] [id number] [phone]
--- OUTSIDE RECORDS SUMMARY | 2020-04-21 16:27 | CCD | Continuity of Care Document ---
Author Author Jose MILLIGAN MD Organization Unknown Address [address] [place] [address] [address] [place] [address] Phone [phone] Care Team Providers Care Test And Research Reactor Operator Name Role Phone Damian Matson M.D. AUTM [phone] Robert Alvarez M.D. AUTM [phone] Leroy Triana M.D. AUTM [phone] Problems Active Problems Provider Date Preoperative cardiovascular [...] Chest pain Onset: 11/23/2015 Coronary arteriosclerosis in [place] artery Onset: 11/25/2015 Hypertensive disorder Onset: 11/25/2015 [...] Unknown Zofran 4mg Tablets prn Unknown Nystatin 516451Sblv/GM Powder Apply 1 application topically 2 (two) [...] Negative Ua Clarity Not Entered Ua Specific [place] 1.015 1.003-1.030 Ua PH 5.5 5.0-7.5 Ua Bilirubin Negative Ua Urobilinogen 0.2 E.U./dL 0.0-1.0 CBC Without Diff 01/25/2020 [facility] [address] [place] [address] [phone] WBC 10.1 10*3/uL (4.1-11.0) RBC 3.88 10*6/uL Low (4.60-6.10) HGB 12.6 g/dL Low (13.5-18.0) HCT 37.6 % Low (41.0-53.0) MCV 96.8 fL High (80.0-95.0) MCH 32.3 pg High (27.0-32.0) MCHC 33.4 g/dL (32.0-36.0) RDW 14.2 % (10.5-14.5) PLT 192 10*3/uL (150-450) MPV 8.8 fL (7.1-10.7) Basic Metabolic Panel 01/25/2020 [address] [place], [place] [address] [phone] Sodium 145 mmol/L (136-145) Potassium 3.8 mmol/L [...] <SEE NOTE> 1 CBC Without Diff 01/24/[address] [address] [phone] WBC 11.8 10*3/uL High (4.1-11.0) RBC 4.04 10*6/uL Low (4.60-6.10) HGB 12.9 g/dL Low (13.5-18.0) HCT 39.2 % Low (41.0-53.0) MCV 97.1 fL High (80.0-95.0) MCH 31.8 pg (27.0-32.0) MCHC 32.8 g/dL (32.0-36.0) RDW 14.1 % (10.5-14.5) PLT 152 10*3/uL (150-450) MPV 9.0 fL (7.1-10.7) Basic Metabolic Panel 01/24/[address] [place] [address] [phone] Sodium 141 mmol/L (136-145) Potassium 3.7 mmol/L [...] NOTE> 2 CBC Without Diff 01/23/2020 [facility] [address] [place] [address] [phone] WBC 14.4 10*3/uL High (4.1-11.0) RBC 3.93 10*6/uL Low (4.60-6.10) HGB 12.4 g/dL Low (13.5-18.0) HCT 37.8 % Low (41.0-53.0) MCV 96.3 fL High (80.0-95.0) MCH 31.6 pg (27.0-32.0) MCHC 32.8 g/dL (32.0-36.0) RDW 14.4 % (10.5-14.5) PLT 161 10*3/uL (150-450) MPV 9.1 fL (7.1-10.7) Basic Metabolic Panel 01/23/2020 [facility] [address] [place] [address] [place] [address] [phone] Sodium 138 mmol/L (136-145) Potassium 3.6 mmol/L [...] <SEE NOTE> 3 Laboratory test finding 01/23/2020 [address] [place] [address] [phone] Troponin I <0.05 ng/mL (<0.05) 4 CBC Without Diff 01/21/[address] [address] [phone] WBC 10.5 10*3/uL (4.1-11.0) RBC 4.04 10*6/uL Low (4.60-6.10) HGB 12.9 g/dL Low (13.5-18.0) HCT 39.0 % Low (41.0-53.0) MCV 96.6 fL High (80.0-95.0) MCH 31.9 pg (27.0-32.0) MCHC 33.0 g/dL (32.0-36.0) RDW 14.3 % (10.5-14.5) PLT 146 10*3/uL Low (150-450) MPV 8.9 fL (7.1-10.7) Basic Metabolic Panel 01/21/[address] [place] [address] [phone] Sodium 142 mmol/L (136-145) Potassium 4.0 mmol/L [...] REF TO DR ADDRESS ON ORDER FOR (414)- - Ua Glucose Negative Ua Protein Negative Ua Nitrite Positive Ua Leuko Small Ua Blood Moderate Ua Color Not Entered Ua Ketones Negative Ua Clarity Not Entered Ua Specific [place] 1.020 1.003-1.030 Ua PH 5.5 5.0-7.5 Ua Bilirubin Negative Ua Urobilinogen 0.2 E.U./dL 0.0-1.0 Laboratory test finding 01/20/2020 [facility] [address] [phone] Urine Culture SPECIMEN DESCRIP <SEE NOTE> 6, 7 Coronavirus By PCR 01/20/[address] [address] [phone] Specimen Description NASOPHARYNGEAL Covid19 Result NOT DETECTED (Ndet) 8 Comment THE U.S. FDA HAS <SEE NOTE> 9 First Test UNKNOWN Employed In [employer] UNKNOWN Symptomatic UNKNOWN Date Of Sympt Onset NOT APPLICABLE Hospitalized UNKNOWN Icu UNKNOWN Congregate Care Set UNKNOWN NO Laboratory test finding 01/20/[address] [address] [phone] Urine Culture SPECIMEN DESCRIP <SEE NOTE> 10 Urine Micro Only 01/20/[address] [address] [phone] Urine WBC * 50-100 [HPF] (0-5) Urine RBC * 25-50 [HPF] (0-2) Epithelial Cells 2+ [HPF] Bacteria 1+ [HPF] Urinalysis RFX 01/20/[address] [address] [phone] Color YELLOW Appearance CLOUDY Spec Grav Urine 1.017 (1.003-1.030) PH Urine 5.5 (5.0-7.5) Leuk Esterase 2+ Abnormal (Neg) Nitrite Urine POSITIVE Abnormal (Neg) Protein Urine NEGATIVE (Neg) Glucose Urine NEGATIVE (Neg) Ketone Urine NEGATIVE (Neg) Urobilinogen 1.0 mg/dL (0-1.0) Bilirubin Urine NEGATIVE (Neg) Blood/HGB Urine 3+ Abnormal (Neg) Basic Metabolic Panel 01/20/2020 [place] [address] [place] [address] [phone] Sodium 142 mmol/L (136-145) Potassium 4.7 mmol/L [...] <SEE NOTE> 11 CBC Without Diff 01/20/2020 [address] [place] [address] [phone] WBC 15.5 10*3/uL High (4.1-11.0) RBC 4.47 10*6/uL Low (4.60-6.10) HGB 14.3 g/dL (13.5-18.0) HCT 43.4 % (41.0-53.0) MCV 97.1 fL High (80.0-95.0) MCH 32.0 pg (27.0-32.0) MCHC 32.9 g/dL (32.0-36.0) RDW 14.5 % (10.5-14.5) PLT 172 10*3/uL (150-450) MPV 9.3 fL (7.1-10.7) Basic Metabolic Panel 09/02/2019 [facility] [address] [phone] Glucose 136 mg/dL High 65-99 12 BUN 21 mg/dL 8-27 Creatinine 1.24 mg/dL 0.76-1.27 eGFR If NonAfricn Am 62 mL/min/1.73 >59 eGFR If Africn Am 72 mL/min/1.73 >59 BUN/Creatinine Ratio 17 10-24 Sodium 144 mmol/L 134-144 Potassium 4.6 mmol/L 3.5-5.2 Chloride 105 mmol/L 96-106 Carbon Dioxide, Total 24 mmol/L 20-29 Calcium 9.4 mg/dL 8.6-10.2 Laboratory test finding 09/02/[address] [facility] [address] [phone] Uric Acid 4.9 mg/dL 3.7-8.6 13 Vitamin D, 25-Hydroxy 31.7 ng/mL 30.0-100.0 14 [place] Adult Urine 08/22/2019 [facility] [phone] pH 5.441 Low 5.800-6.200 15 24 hr Uric Acid 0.317 g/d <0.800 16 24 hr Calcium 80 mg/d <250 17 24 hr Oxalate 105 mg/d High 20-40 18 24 hr Citrate 109 mg/d Low >450 19 Urine Volume 1.98 L/d 0.50-4.00 20 Supersaturation CaOx 7.14 6.00-10.00 21 Supersaturation CaP 0.15 Low 0.50-2.00 22 Supersaturation Uric Acid 0.79 <1.00 23 Laboratory test finding 08/22/2019 [facility] [phone] Interpretations Collection A Comments 24 Dietary Factors Collection A 08/22/2019 [facility] [phone] 24 hr Sulfate 41 mEq/d 20-80 25 [...] 0.8-1.4 33 Renal Factors Collection A 08/22/2019 [facility] [phone] 24 hr Creatinine 1577 mg/d 34 24 hr Creatinine per Kilogram Body Weight 12.3 mg/d/kg 11.9-24.4 35 24 hr Calcium per Kilogram Body Weight 0.6 mg/d/kg <4 .0 36 24 hr Calcium per 24 hr Creatinine 50 mg/g 34-196 37 Laboratory test finding 08/22/2019 [facility] [phone] PDF [id number] SEE IMAGE 1 -- NORMAL KIDNEY FUNCTION [...] 21) 04:27 PM SOLEDAD KHANNA Admitted to [facility] for IV antibiotics 8 THIS ASSAY AMPLIFIES [...] THE VIRUS THAT CAUSES COVID-19. EMAILED TO [facility] AT [id number] [id number] XU [id number]. 10 SPECIMEN DESCRIPTION MIDSTREAM URINE,CLEAN CATCH CULTURE [...] this repo rt has been sent to [phone] 13 Therapeutic target for gout patients: <6.0 14 Vitamin D deficiency has bee n defined by the [place] of [employer] and an Endocrine Society practice guideline as a level of serum 25-OH vitamin D less than 20 ng/mL (1,2). The Endocrine Society went on to further define vitamin D insufficiency as a level between 21 and 29 ng/mL (2). 1. IOM ([place] of [employer]). 2010. Di etary reference intakes [...] Urine Procedures Date Code Description Status 01/20/2020 81316 Retrograde,Pyelogram,Urography I nterpretation Completed 01/20/[address] Abdomen/Pelvis Wo Contrast Co mpleted 01/20/2020 47979 Cystourethroscopy, With Insertio n Of Indwelling Ureteral Stent Completed 09/22/2019 72841 Ultrasound Retro Renal Real Time With Image Tech Comp Completed 09/22/2019 96843 Ultrasound Retro Renal Real Time With Image Tech Comp Completed 03/26/2012 [id number] Colonoscopy Completed Medical Devices Description No Information Available Encounters Type Date Location Provider Dx Diagnosis Office Visit 02/02/2020 12:40p [facility] Sarthak Milligan MD N20.1 Calculus of ureter Office Visit 09/22/2019 2:30p [facility] Soledad Khanna NP N20.0 [...] 11:15 am - Soledad Khanna NP at [facility] * 09/21/2020 10:30 am - [place] at [facility] Functional Status Description No Information Available Mental Status Description No Information Available Referrals Refer to Dr Reason for Referral Status Appt Date Sarthak Milligan M.D. Per [employer] CPT: 85585 Description: CT ABDOMEN & PELVIS W/O Auth: [id number] Review Date: 01/20/2020 9:16:13 AM Expiration Date: 03/05/2020 Status: Your case has been Approved. 01/20/2020 [place] Created [facility] [address] [place] [id number] [phone]
--- OUTSIDE RECORDS SUMMARY | 2020-04-21 16:27 | CCD | Continuity of Care Document ---
Author Author Jose MATIAS [facility] Organization Unknown Address [address] [place] [address], [address] [address] Phone [phone] Problems Description No Active Problems Social History Type Date Description Comments Sex Unknown ETOH Use Denies alcohol use Tobacco Use Start: Unknown End: Unknown Patient is a former smoker 2 packs/per day Allergies, Adverse Reactions, Alerts Active Allergies Reaction Severity Comments Date Penicillin 08/19/2014 Advil 01/13/2019 Aleve 01/13/2019 Medications Active Medications SIG Qnty Indications Ordering Provide r Date Tramadol HCL 50mg Tablets 1 tab every 6 hours as needed pain 20tabs S93.402A Bailey Eaton MD 10/24 Stool Softener 250mg Capsules Unknown Joint Health Capsules Unknown Calcium Citrate +D [id number] Tablets 1 tab by mouth twice a day Unknown Vitamin B12 1000mcg Tablets ER 1 by mouth every day Unknown Lyrica 150mg Capsules 1 tab by by mouth twice a day Unknown Zofran 4mg Tablets one by mouth every 6 hours as needed for nausea Unknown Viagra 50mg Tablets one tab 1 hour prior to intercourse Unknown Nyamyc [id number]/GM Powder Unknown Coq10 200mg Capsules S83.411A Unknown Nitroglycerin 0.4mg Tablets Sub 1 tab sl every 5 min times 3 doses as needed chest pain U nknown Amitriptyline HCL 25mg Tablets 1 by mouth at bedtime Unknown Atorvastatin Calcium 40mg Tablets 1 by mouth every day Unknown Metoprolol Succinate ER 50mg Tablets ER 24HR 1 by mouth every day Unknown [address] 1 by mouth every day Unknown Duloxetine HCL 60mg Caps DR Part 1 by mouth every day Unknown Aspir-[address] ever y day Unknown Allopurinol 300mg Tablets 1 by mouth every day Unknown Immunizations Description No Information Available Vital Signs Date Vital Result Comment 01/13/2019 3:08pm Body Temperature 98.6 F Height 67.75 inches 5'7.75" Weight 270.00 lb BMI (Body Mass Index) 41.4 kg/m2 08/17/2016 1:25pm Body Temperature 97.7 F Height 68 inches 5'8" Weight 311.00 lb BMI (Body Mass Index) 47.3 kg/m2 Results Description No Information Available Procedures Date Code Description Status 01/07/2020 32547 Physical Therapy Eval - Low Comp lexity Completed 12/30/2019 03107 X-Ray Ankle Complete Completed 12/05/2019 78405 X-Ray Ankle Complete Completed 11/14/2019 24904 X-Ray Ankle Complete Completed 11/14/2019 84159 X-Ray Shoulder Complete Complete d 11/14/2019 18147 FX Lateral Malleolus (Distal Fib ha) W/O Manipulation Completed 11/07/2019 34822 X-Ray Ankle Complete Completed 11/07/2019 57309 X-Ray Shoulder Complete Complete d Medical Devices Description No Information Available Encounters Type Date Location Provider Dx Diagnosis Office Visit 12/30/2019 9:15a [place] PETER Higgins S82.65xD Nondisp fx of lateral malleolus of l fibula, 7thD M75.51 Bursitis of right shoulder Office Visit 12/05/2019 8:30a [place] PETER Higgins S82.65xD Nondisp fx of lateral malleolus of l fibula, 7thD S40.011D Contusion of right shoulder, subsequent encounter Office Visit 11/14/2019 5:30p [place] PETER Higgins S82.65xA Nondisp fx of lateral malleolus of left fibula, init S40.011D Contusion of right shoulder, subsequent encounter Office Visit 11/07/2019 11:00a [place] PETER Higgins S93.402A Sprain of unspecified ligament of left ankle, init encntr S40.011A Contusion of right shoulder, initial encounter Assessments Date Code Description Provider 01/07/2020 S82.65xD Nondisplaced fractur e of lateral malleolus of left fibula, subsequent encounter for closed fracture with routine healing Shanae Matias, [facility] 01/07/2020 S40.011D Contusion of right shoulder, sub sequent encounter Shanae Matias, [facility] 12/30/2019 S82.65xD Nondisplaced fractur e of lateral malleolus of left fibula, subsequent encounter for closed fracture with routine healing PETER Higgins 12/30/2019 S82.65xD Nondisplaced fractur e of lateral malleolus of left fibula, subsequent encounter for closed fracture with routine healing PETER Higgins 12/30/2019 M75.51 Bursitis of right shoulder PETER Higgins 12/05/2019 S82.65xD Nondisplaced fractur e of lateral malleolus of left fibula, subsequent encounter for closed fracture with routine healing PETER Higgins 12/05/2019 S40.011D Contusion of right shoulder, sub sequent encounter PETER Higgins 11/14/2019 S82.65xA Nondisplaced fractur e of lateral malleolus of left fibula, initial encounter for closed fracture PETER Higgins 11/14/2019 S40.011D Contusion of right shoulder, sub sequent encounter PETER Higgins 11/07/2019 S93.402A Sprain of unspecifie d ligament of left ankle, initial encounter PETER Higgins 11/07/2019 S93.402A Sprain of unspecifie d ligament of left ankle, initial encounter PETER Higgins 11/07/2019 S40.011A Contusion of right shoulder, ini tial encounter PETER Higgins 11/07/2019 S40.011A Contusion of right shoulder, ini tial encounter PETER Higgins Plan of Treatment Future Appointment(s):* 01/27/2020 9:20 am - PETER Higgins at [place] Functional Status Description No Information Available Mental Status Description No Information Available Referrals Refer to Dr Reason for Referral Status Appt Date Kavon Cohen PA PT - 8 VISITS GOOD FOR L ANK LE/R SHLDR FROM 01/11- 02/11/20, AUTH #[id number]. SS Created [address] [place] [address] [phone] Fabian Sanchez I, Pac L1902 Ankle Lace Up W/Stays - Left No authorization required based on medical necessity and $ amount. Created [address] [address] [phone] Kavon Cohen PA PT ALLOWED EVAL THEN NEEDS AUTH TO PT DEPT. 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 NO AUTH REQUIRED FOR SHOULDER IMMOBILIZER([id number]) AND COVERED AT 70% UNTIL THEY MEET THERE OUT OF POCKET OF $6700 TO RUDY NT CALL REF #[id number] Created [address] [phone]
--- OUTSIDE RECORDS SUMMARY | 2020-04-21 16:27 | CCD | Continuity of Care Document ---
Author Author Jose MILLIGAN MD Organization Unknown Address [address] [place] [address] [address] [place] [address] Phone [phone] Care Team Providers Care Delivery Rep Name Role Phone Damian Matson M.D. AUTM [phone] Robert Alvarez M.D. AUTM [phone] Leroy Triana M.D. 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 Hypertensive disorder Onset: [...] 2ppd x 15 years Smoking Status Reviewed: 01/20/20 Former Cigarette Smoker 2ppd x 15 years [...] Unknown Zofran 4mg Tablets prn Unknown Nystatin 399411Mtcq/GM Powder Apply 1 application topically 2 (two) times a day Unknow n Duloxetine HCL 60mg Caps DR Part Take 60 mg by mouth daily Unknown Calcium + D3 Unknown Multi Vitamin Unknown Co Q-10 Unknown Immunizations Description No Information Available Vital Signs Date Vital Result Comment 01/20/2020 9:34am Height 68 inches 5'8" Weight 298.00 lb Weight 135.173 kg BMI (Body Mass Index) 45.3 kg/m2 BP Systolic 133 mmHg BP Diastolic 84 mmHg Heart Rate 73 /min Body Temperature 97.0 F 11/18/2018 10:42am Height 68 inches 5'8" Weight 267.00 lb Weight 121.111 kg BMI (Body Mass Index) 40.6 kg/m2 BP Systolic 114 mmHg BP Diastolic 76 mmHg Heart Rate 70 /min Results Test Acquired Date Facility Test Result H/L Range Note CBC Without Diff 01/25/2020 [facility] [address] [place] [address] [phone] WBC 10.1 10*3/uL (4.1-11.0) RBC 3.88 10*6/uL Low (4.60-6.10) HGB 12.6 g/dL Low (13.5-18.0) HCT 37.6 % Low (41.0-53.0) MCV 96.8 fL High (80.0-95.0) MCH 32.3 pg High (27.0-32.0) MCHC 33.4 g/dL (32.0-36.0) RDW 14.2 % (10.5-14.5) PLT 192 10*3/uL (150-450) MPV 8.8 fL (7.1-10.7) Basic Metabolic Panel 01/25/2020 [facility] [address] [place] [address] [phone] Sodium 145 mmol/L (136-145) Potassium 3.8 mmol/L [...] <SEE NOTE> 1 CBC Without Diff 01/24/2020 [facility] [address] [place] [address] [phone] WBC 11.8 10*3/uL High (4.1-11.0) RBC 4.04 10*6/uL Low (4.60-6.10) HGB 12.9 g/dL Low (13.5-18.0) HCT 39.2 % Low (41.0-53.0) MCV 97.1 fL High (80.0-95.0) MCH 31.8 pg (27.0-32.0) MCHC 32.8 g/dL (32.0-36.0) RDW 14.1 % (10.5-14.5) PLT 152 10*3/uL (150-450) MPV 9.0 fL (7.1-10.7) Basic Metabolic Panel 01/24/2020 [facility] [place] [address] [phone] Sodium 141 mmol/L (136-145) Potassium 3.7 mmol/L [...] <SEE NOTE> 2 CBC Without Diff 01/23/2020 [place] [address] [place] [address] [phone] WBC 14.4 10*3/uL High (4.1-11.0) RBC 3.93 10*6/uL Low (4.60-6.10) HGB 12.4 g/dL Low (13.5-18.0) HCT 37.8 % Low (41.0-53.0) MCV 96.3 fL High (80.0-95.0) MCH 31.6 pg (27.0-32.0) MCHC 32.8 g/dL (32.0-36.0) RDW 14.4 % (10.5-14.5) PLT 161 10*3/uL (150-450) MPV 9.1 fL (7.1-10.7) Basic Metabolic Panel 01/23/[address] [place] [address] [phone] Sodium 138 mmol/L (136-145) Potassium 3.6 mmol/L [...] <SEE NOTE> 3 Laboratory test finding 01/23/2020 [place] [address] [place] [address] [phone] Troponin I <0.05 ng/mL (<0.05) 4 CBC Without Diff 01/21/2020 [facility] [address] [place], [place] [address] [phone] WBC 10.5 10*3/uL (4.1-11.0) RBC 4.04 10*6/uL Low (4.60-6.10) HGB 12.9 g/dL Low (13.5-18.0) HCT 39.0 % Low (41.0-53.0) MCV 96.6 fL High (80.0-95.0) MCH 31.9 pg (27.0-32.0) MCHC 33.0 g/dL (32.0-36.0) RDW 14.3 % (10.5-14.5) PLT 146 10*3/uL Low (150-450) MPV 8.9 fL (7.1-10.7) Basic Metabolic Panel 01/21/2020 [facility] [address] [place] [address] [phone] Sodium 142 mmol/L (136-145) Potassium 4.0 mmol/L [...] REF TO DR ADDRESS ON ORDER FOR (710)- - Ua Glucose Negative Ua Protein Negative Ua Nitrite Positive Ua Leuko Small Ua Blood Moderate Ua Color Not Entered Ua Ketones Negative Ua Clarity Not Entered Ua Specific Leivasy 1.020 1.003-1.030 Ua PH 5.5 5.0-7.5 Ua Bilirubin Negative Ua Urobilinogen 0.2 E.U./dL 0.0-1.0 Laboratory test finding 01/20/2020 [facility] [address] [phone] Urine Culture SPECIMEN DESCRIP <SEE NOTE> 6, 7 Coronavirus By PCR 01/20/[address] [place] [address] [phone] Specimen Description NASOPHARYNGEAL Covid19 Result NOT DETECTED (Ndet) 8 Comment THE U.[place]. FDA HAS <SEE NOTE> 9 First Test UNKNOWN [facility] UNKNOWN Symptomatic UNKNOWN Date Of Sympt Onset NOT APPLICABLE Hospitalized UNKNOWN Icu UNKNOWN Congregate Care Set UNKNOWN NO Laboratory test finding 01/20/[address] [address] [phone] Urine Culture SPECIMEN DESCRIP <SEE NOTE> 10 Urine Micro Only 01/20/[address] [address] [phone] Urine WBC * 50-100 [HPF] (0-5) Urine RBC * 25-50 [HPF] (0-2) Epithelial Cells 2+ [HPF] Bacteria 1+ [HPF] Urinalysis RFX 01/20/[address] [place] [address] [phone] Color YELLOW Appearance CLOUDY Spec Grav Urine 1.017 (1.003-1.030) PH Urine 5.5 (5.0-7.5) Leuk Esterase 2+ Abnormal (Neg) Nitrite Urine POSITIVE Abnormal (Neg) Protein Urine NEGATIVE (Neg) Glucose Urine NEGATIVE (Neg) Ketone Urine NEGATIVE (Neg) Urobilinogen 1.0 mg/dL (0-1.0) Bilirubin Urine NEGATIVE (Neg) Blood/HGB Urine 3+ Abnormal (Neg) Basic Metabolic Panel 01/20/[address] [place] [address] [phone] Sodium 142 mmol/L (136-145) Potassium 4.7 mmol/L [...] <SEE NOTE> 11 CBC Without Diff 01/20/2020 [facility] [address] [place] [address] [phone] WBC 15.5 10*3/uL High (4.1-11.0) RBC 4.47 10*6/uL Low (4.60-6.10) HGB 14.3 g/dL (13.5-18.0) HCT 43.4 % (41.0-53.0) MCV 97.1 fL High (80.0-95.0) MCH 32.0 pg (27.0-32.0) MCHC 32.9 g/dL (32.0-36.0) RDW 14.5 % (10.5-14.5) PLT 172 10*3/uL (150-450) MPV 9.3 fL (7.1-10.7) Basic Metabolic Panel 09/02/[address] [facility] [address] [phone] Glucose 136 mg/dL High 65-99 12 BUN 21 mg/dL 8-27 Creatinine 1.24 mg/dL 0.76-1.27 eGFR If NonAfricn Am 62 mL/min/1.73 >59 eGFR If Africn Am 72 mL/min/1.73 >59 BUN/Creatinine Ratio 17 10-24 Sodium 144 mmol/L 134-144 Potassium 4.6 mmol/L 3.5-5.2 Chloride 105 mmol/L 96-106 Carbon Dioxide, Total 24 mmol/L 20-29 Calcium 9.4 mg/dL 8.6-10.2 Laboratory test finding 09/02/[address] [facility] [address] [phone] Uric Acid 4.9 mg/dL 3.7-8.6 13 Vitamin D, 25-Hydroxy 31.7 ng/mL 30.0-100.0 14 [facility] Adult Urine 08/22/2019 [facility] [phone] pH 5.441 Low 5.800-6.200 15 24 hr Uric Acid 0.317 g/d <0.800 16 24 hr Calcium 80 mg/d <250 17 24 hr Oxalate 105 mg/d High 20-40 18 24 hr Citrate 109 mg/d Low >450 19 Urine Volume 1.98 L/d 0.50-4.00 20 Supersaturation CaOx 7.14 6.00-10.00 21 Supersaturation CaP 0.15 Low 0.50-2.00 22 Supersaturation Uric Acid 0.79 <1.00 23 Laboratory test finding 08/22/2019 [facility] [phone] Interpretations Collection A Comments 24 Dietary Factors Collection A 08/22/2019 [facility] [phone] 24 hr Sulfate 41 mEq/d 20-80 25 [...] 0.8-1.4 33 Renal Factors Collection A 08/22/2019 [facility] [phone] 24 hr Creatinine 1577 mg/d 34 24 hr Creatinine per Kilogram Body Weight 12.3 mg/d/kg 11.9-24.4 35 24 hr Calcium per Kilogram Body Weight 0.6 mg/d/kg <4 .0 36 24 hr Calcium per 24 hr Creatinine 50 mg/g 34-196 37 Laboratory test finding 08/22/2019 [facility] [phone] PDF [id number] SEE IMAGE 1 -- NORMAL KIDNEY FUNCTION [...] 21) 04:27 PM SOLEDAD KHANNA Admitted to [facility] for IV antibiotics 8 THIS ASSAY [...] THE VIRUS THAT CAUSES COVID-19. EMAILED TO [facility] AT [address] [place] [address] [place] [address]. 10 SPECIMEN DESCRIPTION MIDSTREAM URINE,CLEAN CATCH CULTURE RESULTS >100,000 CFU/ML STAPHYLOCOCCUS, COAGULASE NEGATIVE KERON NUMBERS CAN NOT BE DIRECTLY COMPARED ACROSS DIFFERENT ANTIBIOTICS. KERON VALUES ARE OCCASIONALLY USEFUL. SUSCEPTIBLE OR RESISTANT INTERPRETATIONS ALONE ARE SUFFICIENT FOR ANTIBIOTIC SELECTION IN THE GREAT MAJORITY OF INFECTIONS. REPORT STATUS FINAL 01/22/2020 ORGANISM STAPHYLOCOCCUS, COAGULASE NEGATIVE METHOD KEORN NITROFURANTOIN 64 INTERMEDIATE LEVOFLOXACIN >=8 RESISTANT LINEZOLID [...] this repo rt has been sent to [phone] 13 Therapeutic target for gout patients: <6.0 14 Vitamin D deficiency has bee n defined by the [place] of Medicine and an Endocrine Society practice guideline as a level of serum 25-OH vitamin D less than 20 ng/mL (1,2). The Endocrine Society went on to further define vitamin D insufficiency as a level between 21 and 29 ng/mL (2). 1. IOM ([place] of Medicine). 2010. Di etary reference intakes for calcium and D. [place]: The National Academies Press. 2. Doenna MF, Dustin NC, Mekhi aparicio OCONNELL, et [...] Urine Procedures Date Code Description Status 01/20/2020 77706 Retrograde,Pyelogram,Urography I nterpretation Completed 01/20/[address] Abdomen/Pelvis Wo Contrast Co mpleted 01/20/2020 19491 Cystourethroscopy, With Insertio n Of Indwelling Ureteral Stent Completed 09/22/2019 76430 Ultrasound Retro Renal Real Time With Image Tech Comp Completed 09/22/2019 86137 Ultrasound Retro Renal Real Time With Image Tech Comp Completed 03/26/2012 34615912 Colonoscopy Completed Medical Devices Description No Information Available Encounters Type Date Location Provider Dx Diagnosis Office Visit 09/22/2019 2:30p [facility] Soledad Khanna NP N20.0 Calculus of kidney R82.991 Hypocitraturia R82.992 Hyperoxaluria Z12.5 Encounter for screening for malignant neoplasm of prostate N52.9 Male erectile dysfunction, u nspecified Assessments Date Code Description Provider 01/20/2020 N13.2 Hydronephrosis with renal and ur eteral calculous obstruction Sarthak Milligan MD 01/20/2020 N20.0 Calculus of kidney Sarthak swanson MD 01/20/2020 N20.1 Calculus of ureter Raji Moreira MD 01/20/2020 N13.2 Hydronephrosis with renal and ur eteral calculous obstruction Soledad Khanna NP 09/22/2019 N20.0 Calculus of kidney Sarthak swanson MD 09/22/2019 N20.0 Calculus of kidney [facility] 09/22/2019 N20.0 Calculus of kidney Soledad schreiber NP 09/22/2019 R82.991 Hypocitraturia Soledad Khanna NP 09/22/2019 R82.992 Hyperoxaluria Soledad Khanna NP 09/22/2019 Z12.5 Encounter for screening for gavin gnant neoplasm of prostate Soledad Khanna NP 09/22/2019 N52.9 Male erectile dysfunction, unspe cified Soledad Khanna NP Plan of Treatment Future Appointment(s):* 02/02/2020 9:10 am - Sarthak Milligan MD at [facility]/ A[facility] Urology * 09/21/2020 11:15 am - Soledad Khanna NP at [facility]/ ..P Urology * 09/21/2020 10:30 am - [place] at [facility]/ ..P Urology 01/20/2020 - Soledad Khanna NP* N13.2 Hydronephrosis with renal and ureteral calculous obstruction* Comments:* CT scan shows mild right hydronephrosis with hydroureter due to 2 stones in the mid right ureter adjacent to each other measuring 4 mm and 5 mm. He has other nonobstructing stones in each kidney. He is in pain and nauseated and his urine appears infected. I explained it is statistically difficult the past 2 stones and in the setting of an infection he should have a stent placed. I spoke with Dr. aRji Lopez the on-call physician who agrees. The patient was directly admitted to [facility]. He only drinks some water this morning at 9 AM and has not eaten or drinking since then. I told him to not have any further food or drink and to go directly to [address] [place] [address] where he will be admitted and scheduled for surgery this afternoon with a stent placement. Patient and his both voiced understanding. Questions were answered. * Follow up:* direct admit to [place] Functional Status Description No Information Available Mental Status Description No Information Available Referrals Refer to Reason for Referral Status Appt Date Sarthak Milligan M.D. Per [email or web address] online CPT: 92536 Description: CT ABDOMEN & PELVIS W/O Auth: [id number] Review Date: 01/20/2020 9:16:13 AM Expiration Date: 03/05/2020 Status: Your case has been Approved. 01/20/2020 MO Created [facility] Urology [address] [place] [phone]
--- OUTSIDE RECORDS SUMMARY | 2020-04-21 16:29 | CCD ---
Author Author [facility] Organization [facility] Address Unknown Phone Unavailable Care Team Providers Care Cash Applications Manager Name Role Phone FIGUEROA, Ranjit SR MD Unavailable Unavailable EMERTON, Ranjit SR MD Unavailable Unavailable EMERTON, Ranjit SR MD Unavailable Unavailable EMERTON, Ranjit SR MD Unavailable Unavailable EMERTON, Ranjit SR MD Unavailable Unavailable EMERTON, Ranjit SR MD Unavailable Unavailable EMERTON, Ranjit SR MD Unavailable Unavailable EMERTON, Ranjit SR MD Unavailable Unavailable EMERTON, Ranjit SR MD Unavailable Unavailable EMERTON, Ranjit SR MD Unavailable Unavailable EMERTON, Ranjit SR MD Unavailable Unavailable EMERTON, Ranjit SR MD Unavailable Unavailable EMERTON, Ranjit SR MD Unavailable Unavailable EMERTON, Ranjit SR MD Unavailable Unavailable EMERTON, Ranjit SR MD Unavailable Unavailable EMERTON, Ranjit SR MD Unavailable Unavailable EMERTON, Ranjit SR MD Unavailable Unavailable EMERTON, Ranjit SR MD Unavailable Unavailable EMERTON, Ranjit SR MD Unavailable Unavailable EMERTON, Ranjit SR MD Unavailable Unavailable EMERTON, Ranjit SR MD Unavailable Unavailable EMERTON, Ranjit SR MD Unavailable Unavailable EMERTON, Ranjit SR MD Unavailable Unavailable EMERTON, Ranjit SR MD Unavailable Unavailable EMERTON, Ranjit SR MD Unavailable Unavailable EMERTON, Ranjit SR MD Unavailable Unavailable EMERTON, Ranjit SR MD Unavailable Unavailable EMERTON, Ranjit SR MD Unavailable Unavailable EMERTON, Ranjit SR MD Unavailable Unavailable EMERTON, Ranjit SR MD Unavailable Unavailable EMERTON, Ranjit SR MD Unavailable Unavailable EMERTON, Ranjit SR MD Unavailable Unavailable EMERTON, Ranjit SR MD Unavailable Unavailable EMERTON, Ranjit SR MD Unavailable Unavailable EMERTON, Ranjit SR MD Unavailable Unavailable EMERTON, Ranjit SR MD Unavailable Unavailable EMERTON, A REMBERTO MD Unavailable Unavailable EMERTON, A REMBERTO MD Unavailable Unavailable EMERTON, A REMBERTO MD Unavailable Unavailable EMERTON, A REMBERTO MD Unavailable Unavailable EMERTON, A REMBERTO MD Unavailable Unavailable EMERTON, A REMBERTO MD Unavailable Unavailable EMERTON, A REMBERTO MD Unavailable Unavailable EMERTON, A REMBERTO MD Unavailable Unavailable EMERTON, A REMBERTO MD Unavailable Unavailable EMERTON, A REMBERTO MD Unavailable Unavailable EMERTON, A REMBERTO MD Unavailable Unavailable EMERTON, A REMBERTO MD Unavailable Unavailable EMERTON, A REMBERTO MD Unavailable Unavailable EMERTON, A REMBERTO MD Unavailable Unavailable EMERTON, A REMBERTO MD Unavailable Unavailable EMERTON, A REMBERTO MD Unavailable Unavailable EMERTON, A REMBERTO MD Unavailable Unavailable EMERTON, A REMBERTO MD Unavailable Unavailable EMERTON, A REMBERTO MD Unavailable Unavailable EMERTON, A REMBERTO MD Unavailable Unavailable EMERTON, A REMBERTO MD Unavailable Unavailable EMERTON, A REMBERTO MD Unavailable Unavailable EMERTON, A REMBERTO MD Unavailable Unavailable EMERTON, A REMBERTO MD Unavailable Unavailable EMERTON, A REMBERTO MD Unavailable Unavailable EMERTON, A REMBERTO MD Unavailable Unavailable EMERTON, A REMBERTO MD Unavailable Unavailable EMERTON, A REMBERTO MD Unavailable Unavailable EMERTON, A REMBERTO MD Unavailable Unavailable EMERTON, A REMBERTO MD Unavailable Unavailable EMERTON, A REMBERTO MD Unavailable Unavailable EMERTON, A REMBERTO MD Unavailable Unavailable EMERTON, A REMBERTO MD Unavailable Unavailable EMERTON, A REMBERTO MD Unavailable Unavailable EMERTON, A REMBERTO MD Unavailable Unavailable EMERTON, A REMBERTO MD Unavailable Unavailable EMERTON, A REMBERTO MD Unavailable Unavailable EMERTON, A REMBERTO MD Unavailable Unavailable Jacob, L Shanae PA Unavailable Unavailable Jacob, L Shanae PA Unavailable Unavailable Jacob, L Shanae PA Unavailable Unavailable Jacob, L Shanae PA Unavailable Unavailable Jacob, L Shanae PA Unavailable Unavailable Jacob, L Shanae PA Unavailable Unavailable Jacob, L Shanae PA Unavailable Unavailable Jacob, L Shanae PA Unavailable Unavailable Jacob, L Shanae PA Unavailable Unavailable Jacob, L Shanae PA Unavailable Unavailable Jacob, L Shanae PA Unavailable Unavailable Jacob, L Shanae PA Unavailable Unavailable Jacob, L Shanae PA Unavailable Unavailable Jacob, L Shanae PA Unavailable Unavailable Jacob, L Shanae PA Unavailable Unavailable Jacob, L Shanae PA Unavailable Unavailable Jacob, L Shanae PA Unavailable Unavailable Jacob, L Shanae PA Unavailable Unavailable Jacob, L Shanae PA Unavailable Unavailable Jacob, L Shanae PA Unavailable Unavailable Jacob, L Shanae PA Unavailable Unavailable Jacob, L Shanae PA Unavailable Unavailable Jacob, L Shanae PA Unavailable Unavailable McHone, R Raji ORTIZ Unavailable Unavailable McHone, R Raji ORTIZ Unavailable Unavailable McHone, R Raji ORTIZ Unavailable Unavailable McHone, R Raji ORTIZ Unavailable Unavailable McHone, R Raji ORTIZ Unavailable Unavailable McHone, R Raij ORTIZ Unavailable Unavailable McHone, R Raji ORTIZ Unavailable Unavailable McHone, R Raji ORTIZ Unavailable Unavailable McHone, R Raji ORTIZ Unavailable Unavailable McHone, R Raji ORTIZ Unavailable Unavailable McHone, R Raji ORTIZ Unavailable Unavailable McHone, R Raji MD Unavailable Unavailable McHone, R Raji MD Unavailable Unavailable McHone, R Raji ORTIZ Unavailable Unavailable McHone, R Raji ORTIZ Unavailable Unavailable McHone, R Raji ORTIZ Unavailable Unavailable McHone, R Raji ORTIZ Unavailable Unavailable McHone, R Raji ORTIZ Unavailable Unavailable McHone, R Raji ORTIZ Unavailable Unavailable McHone, R Raji ORTIZ Unavailable Unavailable McHone, R Raji ORTIZ Unavailable Unavailable McHone, R Raji ORTIZ Unavailable Unavailable McHone, R Raji ORTIZ Unavailable Unavailable McHone, R Raji ORTIZ Unavailable Unavailable McHone, R Raji ORTIZ Unavailable Unavailable McHone, R Raji ORTIZ Unavailable Unavailable McHone, R Raji ORTIZ Unavailable Unavailable McHone, R Raji ORTIZ Unavailable Unavailable McHone, R Raji ORTIZ Unavailable Unavailable McHone, R Raji ORTIZ Unavailable Unavailable McHone, R Raji ORTIZ Unavailable Unavailable McHone, R Raji ORTIZ Unavailable Unavailable McHone, R Raji ORTIZ Unavailable Unavailable McHone, R Raji ORTIZ Unavailable Unavailable McHone, R Raji ORTIZ Unavailable Unavailable McHone, R Raji ORTIZ Unavailable Unavailable McHone, R Raji ORTIZ Unavailable Unavailable McHone, R Raji ORTIZ Unavailable Unavailable McHone, R Raji ORTIZ Unavailable Unavailable McHone, R Raji ORTIZ Unavailable Unavailable McHone, R Raji ORTIZ Unavailable Unavailable McHone, R Raji ORTIZ Unavailable Unavailable McHone, R Raji ORTIZ Unavailable Unavailable McHone, R Raji ORTIZ Unavailable Unavailable McHone, R Raji ORTIZ Unavailable Unavailable McHone, R Raji ORTIZ Unavailable Unavailable McHone, R Raji ORTIZ Unavailable Unavailable McHone, R Raji ORTIZ Unavailable Unavailable McHone, R Raji ORTIZ Unavailable Unavailable McHone, R Raji ORTIZ Unavailable Unavailable McHone, R Raji ORTIZ Unavailable Unavailable McHone, R Raji ORTIZ Unavailable Unavailable McHone, R Raji ORTIZ Unavailable Unavailable McHone, R Raji OTRIZ Unavailable Unavailable McHone, R Raji ORTIZ Unavailable Unavailable McHone, R Raji ORTIZ Unavailable Unavailable McHone, R Raji ORTIZ Unavailable Unavailable McHone, R Raji ORTIZ Unavailable Unavailable McHone, R Raji ORTIZ Unavailable Unavailable McHone, R Raji ORTIZ Unavailable Unavailable McHone, R Raji ORTIZ Unavailable Unavailable Tate Wnyne MD Unavailable Unavailable Tate Wynne MD Unavailable Unavailable Tate Wynne MD Unavailable Unavailable Tate Wynne MD Unavailable Unavailable DinaoneTate MD Unavailable Unavailable Tate Wynne MD Unavailable Unavailable aTte Wynne MD Unavailable Unavailable DinaoneTate MD Unavailable Unavailable DRAZEK, I SHARON PA Unavailable Unavailable DRAZEK, I SHARON PA Unavailable Unavailable DRAZEK, I SHARON PA Unavailable Unavailable DRAZEK, I SHARON PA Unavailable Unavailable DRAZEK, I SHARON PA Unavailable Unavailable DRAZEK, I SHARON PA Unavailable Unavailable DRAZEK, I SHARON PA Unavailable Unavailable DRAZEK, I SHARON PA Unavailable Unavailable DRAZEK, I SHARON PA Unavailable Unavailable DRAZEK, I SHARON PA Unavailable Unavailable DRAZEK, I SHARON PA Unavailable Unavailable DRAZEK, I SHARON PA Unavailable Unavailable DRAZEK, I SHARON PA Unavailable Unavailable DRAZEK, I SHARON PA Unavailable Unavailable DRAZEK, I SHARON PA Unavailable Unavailable DRAZEK, I SHARON PA Unavailable Unavailable DRAZEK, I SHARON PA Unavailable Unavailable DRAZEK, I SHAORN PA Unavailable Unavailable DRAZEK, I SHARON PA Unavailable Unavailable DRAZEK, I SHARON PA Unavailable Unavailable DRAZEK, I SHARON PA Unavailable Unavailable DRAZEK, I SHARON PA Unavailable Unavailable DRAZEK, I SHARON PA Unavailable Unavailable DRAZEK, I SHARON PA Unavailable Unavailable DRAZEK, I SHARON PA Unavailable Unavailable DRAZEK, I SHARON PA Unavailable Unavailable DRAZEK, I SHARON PA Unavailable Unavailable DRAZEK, I SHARON PA Unavailable Unavailable DRAZEK, I SHARON PA Unavailable Unavailable DRAZEK, I SHARON PA Unavailable Unavailable Phani CATALAN MD Unavailable Unavailable Phani CATALAN MD Unavailable Unavailable Phani CATALAN MD Unavailable Unavailable Phani CATALAN MD Unavailable Unavailable Phani CATALAN MD Unavailable Unavailable Phani CATALAN MD Unavailable Unavailable Phani CATALAN MD Unavailable Unavailable Phani CATALAN MD Unavailable Unavailable Phani CATALAN MD Unavailable Unavailable Phani CATALAN MD Unavailable Unavailable Phani CATALAN MD Unavailable Unavailable Phani CATALAN MD Unavailable Unavailable Phani CATALAN MD Unavailable Unavailable Phani CATALAN MD Unavailable Unavailable Phani CATALAN MD Unavailable Unavailable Phani CATALAN MD Unavailable Unavailable CATALANPhani Milligan MD Unavailable Unavailable CATALAN E PREET ORTIZ Unavailable Unavailable CATALAN E PREET ORTIZ Unavailable Unavailable CATALAN E PREET ORTIZ Unavailable Unavailable CATALAN, E PREET ORTIZ Unavailable Unavailable CATALAN, E PREET ORTIZ Unavailable Unavailable CATALAN, E PREET ORTIZ Unavailable Unavailable CATALAN, E PREET ORTIZ Unavailable Unavailable CTAALAN, E PREET ORTIZ Unavailable Unavailable CATALAN, E PREET ORTIZ Unavailable Unavailable CATALAN, E PREET ORTIZ Unavailable Unavailable CATALAN, E PREET ORTIZ Unavailable Unavailable CATALAN, E PREET OTRIZ Unavailable Unavailable CATALAN, E PREET ORTIZ Unavailable Unavailable CATALAN E PREET ORTIZ Unavailable Unavailable CATALAN E PREET ORTIZ Unavailable Unavailable CATALAN E PREET ORTIZ Unavailable Unavailable CATALAN, E PREET ORTIZ Unavailable Unavailable CATALAN, E PREET ORTIZ Unavailable Unavailable CATALAN, E PREET ORTIZ Unavailable Unavailable CATALAN, E PREET ORTIZ Unavailable Unavailable CATALAN, E PREET ORTIZ Unavailable Unavailable CATALAN, E PREET ORTIZ Unavailable Unavailable CATALAN, E PREET ORTIZ Unavailable Unavailable CATALAN, E PREET ORTIZ Unavailable Unavailable CATALAN, E PREET ORTIZ Unavailable Unavailable CATALAN, E PREET ORTIZ Unavailable Unavailable CATALAN, E PREET ORTIZ Unavailable Unavailable CATALAN, E PREET ORTIZ Unavailable Unavailable CATALAN, E PREET ORTIZ Unavailable Unavailable CATALAN, E PREET ORTIZ Unavailable Unavailable CATALAN, E PREET ORTIZ Unavailable Unavailable CATALAN, E PREET ORTIZ Unavailable Unavailable CATALAN, E PREET ORTIZ Unavailable Unavailable CATALAN, E PREET ORTIZ Unavailable Unavailable CATALAN, E PREET ORTIZ Unavailable Unavailable CATALAN, E PREET ORTIZ Unavailable Unavailable CATALAN, E PREET ORTIZ Unavailable Unavailable CATALAN, E PREET ORTIZ Unavailable Unavailable CATALAN, E PREET ORTIZ Unavailable Unavailable CATALAN, E PREET ORTIZ Unavailable Unavailable Khanna, A Soledad DECORATIVE ENGRAVER Unavailable Unavailable Khanna, A [place] DECORATIVE ENGRAVER Unavailable Unavailable Khanna, A [place] DECORATIVE ENGRAVER Unavailable Unavailable Khanna, A [place] DECORATIVE ENGRAVER Unavailable Unavailable Khanna, A [place]edad DECORATIVE ENGRAVER Unavailable Unavailable Khanna, A Soledad DECORATIVE ENGRAVER Unavailable Unavailable Khanna, A Soledad DECORATIVE ENGRAVER Unavailable Unavailable Khanna, A Soledad DECORATIVE ENGRAVER Unavailable Unavailable Khanna, A Soledad DECORATIVE ENGRAVER Unavailable Unavailable Khanna, A Soledad DECORATIVE ENGRAVER Unavailable Unavailable Khanna, A Soledad DECORATIVE ENGRAVER Unavailable Unavailable Khanna, A Soledad DECORATIVE ENGRAVER Unavailable Unavailable Khanna, A Soledad DECORATIVE ENGRAVER Unavailable Unavailable Khanna, A Soledad DECORATIVE ENGRAVER Unavailable Unavailable Khanna, A Soledad DECORATIVE ENGRAVER Unavailable Unavailable Khanna, A Soledad DECORATIVE ENGRAVER Unavailable Unavailable Khanna, A Soledad DECORATIVE ENGRAVER Unavailable Unavailable Khanna, A Soledad DECORATIVE ENGRAVER Unavailable Unavailable Khanna, A Soledad DECORATIVE ENGRAVER Unavailable Unavailable Khanna, A Soledad DECORATIVE ENGRAVER Unavailable Unavailable Khanna, A Soledad DECORATIVE ENGRAVER Unavailable Unavailable Khanna, A Soledad DECORATIVE ENGRAVER Unavailable Unavailable Khanna, A Soledad DECORATIVE ENGRAVER Unavailable Unavailable Khanna, A Soledad DECORATIVE ENGRAVER Unavailable Unavailable Khanna, A Soledad DECORATIVE ENGRAVER Unavailable Unavailable Khanna, A Soledad DECORATIVE ENGRAVER Unavailable Unavailable Khanna, A Soledad DECORATIVE ENGRAVER Unavailable Unavailable Khanna, A Soledad DECORATIVE ENGRAVER Unavailable Unavailable Khanna, A Soledad DECORATIVE ENGRAVER Unavailable Unavailable Khanna, A Soledad DECORATIVE ENGRAVER Unavailable Unavailable Khanna, A Soledad DECORATIVE ENGRAVER Unavailable Unavailable Khanna, A Soledad DECORATIVE ENGRAVER Unavailable Unavailable Khanna, A Soledad DECORATIVE ENGRAVER Unavailable Unavailable Khanna, A Soledad DECORATIVE ENGRAVER Unavailable Unavailable Khanna, A Soledad DECORATIVE ENGRAVER Unavailable Unavailable Khanna, A Soledad DECORATIVE ENGRAVER Unavailable Unavailable Khanna, A Soledad DECORATIVE ENGRAVER Unavailable Unavailable Khanna, A Soledad DECORATIVE ENGRAVER Unavailable Unavailable Khanna, A Soledad DECORATIVE ENGRAVER Unavailable Unavailable Khanna, A Soledad DECORATIVE ENGRAVER Unavailable Unavailable Khanna, A Soledad DECORATIVE ENGRAVER Unavailable Unavailable Khanna, A Soledad DECORATIVE ENGRAVER Unavailable Unavailable Khanna, A Soledad DECORATIVE ENGRAVER Unavailable Unavailable Khanna, A Soledad DECORATIVE ENGRAVER Unavailable Unavailable Khanna, A Soledad DECORATIVE ENGRAVER Unavailable Unavailable Khanna, A Soledad DECORATIVE ENGRAVER Unavailable Unavailable Khanna, A Soledad DECORATIVE ENGRAVER Unavailable Unavailable Khanna, A Soledad DECORATIVE ENGRAVER Unavailable Unavailable Khanna, A Soledad DECORATIVE ENGRAVER Unavailable Unavailable Derosalia, R Sarthak ORTIZ Unavailable Unavailable Derosalia, R Sarthak ORTIZ Unavailable Unavailable Derosalia, Tate De León MD Unavailable Unavailable Derosalia, R Sarthak ORTIZ Unavailable Unavailable Derosalia, R Sarthak ORTIZ Unavailable Unavailable Derosalia, R Sarthak ORTIZ Unavailable Unavailable Derosalia, R Sarthak ORTIZ Unavailable Unavailable Derosalia, R Sarthak ORTIZ Unavailable Unavailable Derosalia, R Sarthak ORTIZ Unavailable Unavailable Derosalia, R Sarthak ORTIZ Unavailable Unavailable Derosalia, R Sarthak ORTIZ Unavailable Unavailable Derosalia, R Sarthak ORTIZ Unavailable Unavailable Derosalia, R Sarthak ORTIZ Unavailable Unavailable Derosalia, R Sarthak ORTIZ Unavailable Unavailable Derosalia, R Sarthak ORTIZ Unavailable Unavailable Derosalia, R Sarthak ORTIZ Unavailable Unavailable Derosalia, R Sarthak ORTIZ Unavailable Unavailable Derosalia, R Sarthak ORTIZ Unavailable Unavailable Derosalia, R Sarthak ORTIZ Unavailable Unavailable Derosalia, R Sarthak ORTIZ Unavailable Unavailable Derosalia, R Sarthak ORTIZ Unavailable Unavailable Derosalia, R Sarthak ORTIZ Unavailable Unavailable Derosalia, R Sarthak ORTIZ Unavailable Unavailable Derosalia, R Sarthak ORTIZ Unavailable Unavailable Derosalia, R Sarthak ORTIZ Unavailable Unavailable Derosalia, R Sarthak ORTIZ Unavailable Unavailable Derosalia, R Sarthak ORTIZ Unavailable Unavailable Derosalia, R Sarthak ORTIZ Unavailable Unavailable Derosalia, R Sarthak ORTIZ Unavailable Unavailable Derosalia, R Sarthak ORTIZ Unavailable Unavailable Derosalia, R Sarthak ORTIZ Unavailable Unavailable Derosalia, R Sarthak ORTIZ Unavailable Unavailable Derosalia, R Sarthak ORTIZ Unavailable Unavailable Derosalia, R Sarthak ORTIZ Unavailable Unavailable Derosalia, R Sarthak ORTIZ Unavailable Unavailable Derosalia, R Sarthak ORTIZ Unavailable Unavailable Derosalia, R Sarthak ORTIZ Unavailable Unavailable Derosalia, R Sarthak ORTIZ Unavailable Unavailable Derosalia, R Sarthak ORTIZ Unavailable Unavailable Derosalia, R Sarthak ORTIZ Unavailable Unavailable Derosalia, R Sarthak ORTIZ Unavailable Unavailable Derosalia, R Sarthak ORTIZ Unavailable Unavailable Derosalia, R Sarthak ORTIZ Unavailable Unavailable Derosalia, R Sarthak ORTIZ Unavailable Unavailable Derosalia, R Sarthak ORTIZ Unavailable Unavailable Derosalia, R Sarthak ORTIZ Unavailable Unavailable Derosalia, R Sarthak ORTIZ Unavailable Unavailable Derosalia, R Sarthak ORTIZ Unavailable Unavailable Derosalia, R Sarthak ORTIZ Unavailable Unavailable Derosalia, R Sarthak ORTIZ Unavailable Unavailable Derosalia, R Sarthak ORTIZ Unavailable Unavailable Derosalia, R Sarthak ORTIZ Unavailable Unavailable Derosalia, R Sarthak ORTIZ Unavailable Unavailable Derosalia, R Sarthak ORTIZ Unavailable Unavailable Derosalia, R Sarthak ORTIZ Unavailable Unavailable Derosalia, R Sarthak ORTIZ Unavailable Unavailable Derosalia, R Sarthak ORTIZ Unavailable Unavailable Derosalia, R Sarthak ORTIZ Unavailable Unavailable Derosalia, R Sarthak ORTIZ Unavailable Unavailable Derosalia, R Sarthak ORTIZ Unavailable Unavailable Derosalia, R Sarthak ORTIZ Unavailable Unavailable Maring, Mamadou PA Unavailable Unavailable Maring, Mamadou PA Unavailable Unavailable Maring, Mamadou PA Unavailable Unavailable Maring, Mamadou PA Unavailable Unavailable Maring, Mamadou PA Unavailable Unavailable Maring, Mamadou PA Unavailable Unavailable Maring, Mamadou PA Unavailable Unavailable Maring, Mamadou PA Unavailable Unavailable Maring, Mamadou PA Unavailable Unavailable Maring, Mamadou PA Unavailable Unavailable Maring, Mamadou PA Unavailable Unavailable Maring, Mamadou PA Unavailable Unavailable Maring, Mamadou PA Unavailable Unavailable Maring, Mamadou PA Unavailable Unavailable Keturah Gordon MD (Jack) Unavailable Unavailable Keturah Gordon MD (Jack) Unavailable Unavailable Keturah Gordon MD (Jack) Unavailable Unavailable Keturah Gordon MD (Jack) Unavailable Unavailable Keturah Gordon MD (Jack) Unavailable Unavailable Tin, Keturah Rozina (Victor Manuel) MD Unavailable Unavailable Tin, Keturah Rozina (Victor Manuel) MD Unavailable Unavailable Tin, Keturah Rozina (Victor Manuel) MD Unavailable Unavailable Tin, Keturah Rozina (Victor Manuel) MD Unavailable Unavailable Tin, Keturah Rozina (Victor Manuel) MD Unavailable Unavailable Tin, Keturah Rozina (Victor Manuel) MD Unavailable Unavailable Tin, Keturah Rozina (Victor Manuel) MD Unavailable Unavailable Tin, Keturah Rozina (Victor Manuel) MD Unavailable Unavailable Tin, Keturah Rozina (Victor Manuel) MD Unavailable Unavailable Tin, Keturah Rozina (Victor Manuel) MD Unavailable Unavailable Tin, Keturah Rozina (Victor Manuel) MD Unavailable Unavailable Tin, Keturah Rozina (Victor Manuel) MD Unavailable Unavailable Tin, Keturah Rozina (Victor Manuel) MD Unavailable Unavailable Tin, Keturah Rozina (Victor Manuel) MD Unavailable Unavailable Tin, Keturah Rozina (Victor Manuel) MD Unavailable Unavailable Tin, Keturah Rozina (Victor Manuel) MD Unavailable Unavailable Tin, Keturah Rozina (Victor Manuel) MD Unavailable Unavailable Tin, Keturah Rozina (Victor Manuel) MD Unavailable Unavailable Tin, Keturah Rozina (Victor Manuel) MD Unavailable Unavailable Tin, Keturah Rozina (Victor Manuel) MD Unavailable Unavailable Tin, Keturah Rozina (Victor Manuel) MD Unavailable Unavailable Tin, Keturah Rozina (Victor Manuel) MD Unavailable Unavailable Tin, Keturah Rozina (Victor Manuel) MD Unavailable Unavailable Tin, Keturah Rozina (Victor Manuel) MD Unavailable Unavailable Tin, Keturah Rozina (Victor Manuel) MD Unavailable Unavailable Tin, Keturah Rozina (Victor Manuel) MD Unavailable Unavailable Tin, Keturah Rozina (Victor Manuel) MD Unavailable Unavailable Tin, Keturah Rozina (Victor Manuel) MD Unavailable Unavailable Tin, Keturah Rozina (Victor Manuel) MD Unavailable Unavailable Tin, Keturah Rozina (Victor Manuel) MD Unavailable Unavailable Tin, Keturah Rozina (Victor Manuel) MD Unavailable Unavailable Tin, Keturah Rozina (Victor Manuel) MD Unavailable Unavailable Tin, Keturah Rozina (Victor Manuel) MD Unavailable Unavailable Tin, Keturah Rozina (Victor Manuel) MD Unavailable Unavailable Tin, Keturah Rozina (Victor Manuel) MD Unavailable Unavailable Tin, Keturah Rozina (Victor Manuel) MD Unavailable Unavailable Tin, Keturah Rozina (Victor Manuel) MD Unavailable Unavailable Tin, Keturah Rozina (Victor Manuel) MD Unavailable Unavailable Tin, Keturah Rozina (Victor Manuel) MD Unavailable Unavailable Tin, Keturah Rozina (Victor Manuel) MD Unavailable Unavailable Tin, Keturah Rozina (Victor Manuel) MD Unavailable Unavailable Tin, Keturah Rozina (Victor Manuel) MD Unavailable Unavailable Tin, Keturah Rozina (Victor Manuel) MD Unavailable Unavailable Tin, Keturah Rozina (Victor Manuel) Unavailable Unavailable Keturah Gordon) Unavailable Unavailable Keturah Gordon) Unavailable Unavailable Keturah Gordon) Unavailable Unavailable Keturah Gordon) Unavailable Unavailable Keturah Gordon) Unavailable Unavailable Derosalia, R Sarthak ORTIZ Unavailable Unavailable Derosalia, R Sarthak ORTIZ Unavailable Unavailable Derosalia, R Sarthak ORTIZ Unavailable Unavailable Derosalia, R Sarthak ORTIZ Unavailable Unavailable Derosalia, R Sarthak ORTIZ Unavailable Unavailable Derosalia, R Sarthak ORTIZ Unavailable Unavailable Derosalia, R Sarthak ORTIZ Unavailable Unavailable Derosalia, R Sarthak ORTIZ Unavailable Unavailable Derosalia, R Sarthak ORTIZ Unavailable Unavailable Derosalia, R Sarthak ORTIZ Unavailable Unavailable Derosalia, R Sarthak ORTIZ Unavailable Unavailable Derosalia, R Sarthak ORTIZ Unavailable Unavailable Derosalia, R Sarthak ORTIZ Unavailable Unavailable Derosalia, R Sarthak ORTIZ Unavailable Unavailable Derosalia, R Sarthak ORTIZ Unavailable Unavailable Derosalia, R Sarthak ORTIZ Unavailable Unavailable Derosalia, R Sarthak ORTIZ Unavailable Unavailable Derosalia, R Sarthak ORTIZ Unavailable Unavailable Derosalia, R Sarthak ORTIZ Unavailable Unavailable Derosalia, R Sarthak ORTIZ Unavailable Unavailable Derosalia, R Sarthak ORTIZ Unavailable Unavailable Derosalia, R Sartahk ORTIZ Unavailable Unavailable Derosalia, R Sarthak ORTIZ Unavailable Unavailable Derosalia, R Sarthak ORTIZ Unavailable Unavailable Derosalia, R Sarthak ORTIZ Unavailable Unavailable Derosalia, R Sarthak ORTIZ Unavailable Unavailable Derosalia, R Sarthak ORTIZ Unavailable Unavailable Derosalia, R Sarthak ORTIZ Unavailable Unavailable Derosalia, R Sarthak ORTIZ Unavailable Unavailable Derosalia, R Sarthak ORTIZ Unavailable Unavailable Derosalia, R Sarthak ORTIZ Unavailable Unavailable Derosalia, R Sarthak ORTIZ Unavailable Unavailable Derosalia, R Sarthak ORTIZ Unavailable Unavailable Derosalia, R Sarthak ORTIZ Unavailable Unavailable Derosalia, R Sarthak ORTIZ Unavailable Unavailable Derosalia, R Sarthak ORTIZ Unavailable Unavailable Derosalia, R Sarthak ORTIZ Unavailable Unavailable Derosalia, R Sarthak ORTIZ Unavailable Unavailable Derosalia, R Sarthak ORTIZ Unavailable Unavailable Derosalia, R Sarthak ORTIZ Unavailable Unavailable Derosalia, R Sarthak ORTIZ Unavailable Unavailable Derosalia, R Sarthak ORTIZ Unavailable Unavailable Derosalia, Tate De León MD Unavailable Unavailable Derosalia, Tate De León MD Unavailable Unavailable Derosalia, Tate De León MD Unavailable Unavailable Derosalia, Tate De León MD Unavailable Unavailable Derosalia, Tate De León MD Unavailable Unavailable Derosalia, Tate De León MD Unavailable Unavailable Derosalia, Tate De León MD Unavailable Unavailable Derosalia, Tate De León MD Unavailable Unavailable Derosalia, Tate De León MD Unavailable Unavailable Derosalia, Tate De León MD Unavailable Unavailable Derosalia, Tate De León MD Unavailable Unavailable Derosalia, Tate De León MD Unavailable Unavailable Derosalia, Tate De León MD Unavailable Unavailable Derosalia, R Sarthak ORTIZ Unavailable Unavailable Derosalia, R Sarthak ORTIZ Unavailable Unavailable Derosalia, Tate De León MD Unavailable Unavailable Derosalia, Tate De León MD Unavailable Unavailable Derosalia, R Sarthak ORTIZ Unavailable Unavailable Derosalia, Tate De León MD Unavailable Unavailable Dator JRGregory MD Unavailable Unavailable Dator Gregory MISTRY MD Unavailable Unavailable Dator Gregory MISTRY MD Unavailable Unavailable Dator Gregory MISTRY MD Unavailable Unavailable Dator Gregory MISTRY MD Unavailable Unavailable Dator Gregory MISTRY MD Unavailable Unavailable Dator Gregory MISTRY MD Unavailable Unavailable Dator Gregory MISTRY MD Unavailable Unavailable Dator Gregory MISTRY MD Unavailable Unavailable Dator Gregory MISTRY MD Unavailable Unavailable Dator Gregory MISTRY MD Unavailable Unavailable Dator Gregory MISTRY MD Unavailable Unavailable Dator Gregory MISTRY MD Unavailable Unavailable Dator Gregory MISTRY MD Unavailable Unavailable Dator Gregory MISTRY MD Unavailable Unavailable Dator Gregory MISTRY MD Unavailable Unavailable Dator Gregory MISTRY MD Unavailable Unavailable Dator Gregory MISTRY MD Unavailable Unavailable Dator Gregory MISTRY MD Unavailable Unavailable Dator Gregory MISTRY MD Unavailable Unavailable Dator Gregory MISTRY MD Unavailable Unavailable Dator Gregory MISTRY MD Unavailable Unavailable Dator Gregory MISTRY MD Unavailable Unavailable Dator Gregory MISTRY MD Unavailable Unavailable Dator Gregory MISTRY MD Unavailable Unavailable Dator Gregory MISTRY MD Unavailable Unavailable Dator Gregory MISTRY MD Unavailable Unavailable Nilay PRIDE MD Unavailable Unavailable Nilay PRIDE MD Unavailable Unavailable Nilay PRIDE MD Unavailable Unavailable Nilay PRIDE MD Unavailable Unavailable Nilay PRIDE MD Unavailable Unavailable Nilay PRIDE MD Unavailable Unavailable Nilay PRIDE MD Unavailable Unavailable Nilay PRIDE MD Unavailable Unavailable Nilay PRIDE MD Unavailable Unavailable Nilay PRIDE MD Unavailable Unavailable Nilay PRIDE MD Unavailable Unavailable Nilay PRIDE MD Unavailable Unavailable Nilay PRIDE MD Unavailable Unavailable Nilay PRIDE MD Unavailable Unavailable Nilay PRIDE MD Unavailable Unavailable Nilay PRIDE MD Unavailable Unavailable Nilay PRIDE MD Unavailable Unavailable iNlay PRIDE MD Unavailable Unavailable Nilay PRIDE MD Unavailable Unavailable Nilay PRIDE MD Unavailable Unavailable Nilay PRIDE MD Unavailable Unavailable Nilay PRIDE MD Unavailable Unavailable Nilay PRIDE MD Unavailable Unavailable Nilay PRIDE MD Unavailable Unavailable Nilay PRIDE MD Unavailable Unavailable Nilay PRIDE MD Unavailable Unavailable Nilay PRIDE MD Unavailable Unavailable Nialy PRIDE MD Unavailable Unavailable Nilay PRIDE MD Unavailable Unavailable Nilay PRIDE MD Unavailable Unavailable Nilay PRIDE MD Unavailable Unavailable Nilay PRIDE MD Unavailable Unavailable Nilay PRIDE MD Unavailable Unavailable Nilay PRIDE MD Unavailable Unavailable Nilay PRIDE MD Unavailable Unavailable Nilay PRIDE MD Unavailable Unavailable Nilay PRIDE MD Unavailable Unavailable Nilay PRIDE MD Unavailable Unavailable Nilay PRIDE MD Unavailable Unavailable Nilay PRIDE MD Unavailable Unavailable Nilay PRIDE MD Unavailable Unavailable Nilay PRIDE MD Unavailable Unavailable Nilay PRIDE MD Unavailable Unavailable Nilay PRIDE MD Unavailable Unavailable Nilay PRIDE MD Unavailable Unavailable Nilay PRIDE MD Unavailable Unavailable Nilay PRIDE MD Unavailable Unavailable Nilay PRIDE MD Unavailable Unavailable Nilay PRIDE MD Unavailable Unavailable Nilay PRIDE MD Unavailable Unavailable Nilay PRIDE MD Unavailable Unavailable Nilay PRIDE MD Unavailable Unavailable Nilay PRIDE MD Unavailable Unavailable Nilay PRIDE MD Unavailable Unavailable Nilay PRIDE MD Unavailable Unavailable Nilay PRIDE MD Unavailable Unavailable Nilay PRIDE MD Unavailable Unavailable Nilay PRIDE MD Unavailable Unavailable Nilay PRIDE MD Unavailable Unavailable Nilay PRIDE MD Unavailable Unavailable Nilay PRIDE MD Unavailable Unavailable Nilay PRIDE MD Unavailable Unavailable Nilay PRIDE MD Unavailable Unavailable Nilay PRIDE MD Unavailable Unavailable Nilay PRIDE MD Unavailable Unavailable Nilay PRIDE MD Unavailable Unavailable Nilay PRIDE MD Unavailable Unavailable Nilay PRIDE MD Unavailable Unavailable Nilay PRIDE MD Unavailable Unavailable Nilay PRIDE MD Unavailable Unavailable Nilay PRIDE MD Unavailable Unavailable Nilay PRIDE MD Unavailable Unavailable Nilay PRIDE MD Unavailable Unavailable Nilay PRIDE MD Unavailable Unavailable Nilay PRIDE MD Unavailable Unavailable Nilay PRIDE MD Unavailable Unavailable Nilay PRIDE MD Unavailable Unavailable Nilay PRIDE MD Unavailable Unavailable Nilay PRIDE MD Unavailable Unavailable Nilay PRIDE MD Unavailable Unavailable Nilay PRIDE MD Unavailable Unavailable Nilay PRIDE MD Unavailable Unavailable Nilay PRIDE MD Unavailable Unavailable Nilay PRIDE MD Unavailable Unavailable Nilay PRIDE MD Unavailable Unavailable Nilay PRIDE MD Unavailable Unavailable Nilay PRIDE MD Unavailable Unavailable Nilay PRIDE MD Unavailable Unavailable Nilay PRIDE MD Unavailable Unavailable Nilay PRIDE MD Unavailable Unavailable Nilay PRIDE MD Unavailable Unavailable Nilay PRIDE MD Unavailable Unavailable Nilay PRIDE MD Unavailable Unavailable Nilay PRIDE MD Unavailable Unavailable Nilay PRIDE MD Unavailable Unavailable Nilay PRIDE MD Unavailable Unavailable Nilay PRIDE MD Unavailable Unavailable Nilay PRIDE MD Unavailable Unavailable Nilay PRIDE MD Unavailable Unavailable Nilay PRIDE MD Unavailable Unavailable Nilay PRIDE MD Unavailable Unavailable Nilay PRIDE MD Unavailable Unavailable Nilay PRIDE MD Unavailable Unavailable Nilay PRIDE MD Unavailable Unavailable Nilay PRIDE MD Unavailable Unavailable Nilay PRIDE MD Unavailable Unavailable Nilay PRIDE MD Unavailable Unavailable Nilay PRIDE MD Unavailable Unavailable Nilay PRIDE MD Unavailable Unavailable Nilay PRIDE MD Unavailable Unavailable Nilay PRIDE MD Unavailable Unavailable Nilay PRIDE MD Unavailable Unavailable Nilay PRIDE MD Unavailable Unavailable Nilay PRIDE MD Unavailable Unavailable Nilay PRIDE MD Unavailable Unavailable Nilay PRIDE MD Unavailable Unavailable Nilay PRIDE MD Unavailable Unavailable Nilay PRIDE MD Unavailable Unavailable Nilay PRIDE MD Unavailable Unavailable Nilay PRIDE MD Unavailable Unavailable Nilay PRIDE MD Unavailable Unavailable Nilay PRIDE MD Unavailable Unavailable Nilay PRIDE MD Unavailable Unavailable Nilay PRIDE MD Unavailable Unavailable Nilay PRIDE MD Unavailable Unavailable Nilay PRIDE MD Unavailable Unavailable Nilay PRIDE MD Unavailable Unavailable Nilay PRIDE MD Unavailable Unavailable Nilay PRIDE MD Unavailable Unavailable Nilay PRIDE MD Unavailable Unavailable Nilay PRIDE MD Unavailable Unavailable Nilay PRIDE MD Unavailable Unavailable Nilay PRIDE MD Unavailable Unavailable Nilay PRIDE MD Unavailable Unavailable Nilay PRIDE MD Unavailable Unavailable Nilay PRIDE MD Unavailable Unavailable Nilay PRIDE MD Unavailable Unavailable Nilay PRIDE MD Unavailable Unavailable Nilay PRIDE MD Unavailable Unavailable Nilay PRIDE MD Unavailable Unavailable Nilay PRIDE MD Unavailable Unavailable Nilay PRIDE MD Unavailable Unavailable Nilay PRIDE MD Unavailable Unavailable Nilay PRIDE MD Unavailable Unavailable Nilay PRIDE MD Unavailable Unavailable Nilay PRIDE MD Unavailable Unavailable Nilay PRIDE MD Unavailable Unavailable Nilay PRIDE MD Unavailable Unavailable Nilay PRIDE MD Unavailable Unavailable Nilay PRIDE MD Unavailable Unavailable Nilay PRIDE MD Unavailable Unavailable Nilay PRIDE MD Unavailable Unavailable Nilay PRIDE MD Unavailable Unavailable Nilay PRIDE MD Unavailable Unavailable Nilay PRIDE MD Unavailable Unavailable Nilay PRIDE MD Unavailable Unavailable Nilay PRIDE MD Unavailable Unavailable Nilay PRIDE MD Unavailable Unavailable Nilay PRIDE MD Unavailable Unavailable Nilay PRIDE MD Unavailable Unavailable Nilay PRIDE MD Unavailable Unavailable Nilay PRIDE MD Unavailable Unavailable Nilay PRIDE MD Unavailable Unavailable Nilay PRIDE MD Unavailable Unavailable Nilay PRIDE MD Unavailable Unavailable Nilay PRIDE MD Unavailable Unavailable Nilay PRIDE MD Unavailable Unavailable Nilay PRIDE MD Unavailable Unavailable Nilay PRIDE MD Unavailable Unavailable Nilay PRIDE MD Unavailable Unavailable Nilay PRIDE MD Unavailable Unavailable Nilay PRIDE MD Unavailable Unavailable Nilay PRIDE MD Unavailable Unavailable RADHA, Nilay ALCANTARA MD Unavailable Unavailable KALYANONCYRUS, Nilay ALCANTARA MD Unavailable Unavailable RADHA, Nilay ALCANTARA MD Unavailable Unavailable McHone, Tate Alegria MD Unavailable Unavailable McHone, Tate Alegria MD Unavailable Unavailable McHone, Tate Alegria MD Unavailable Unavailable McHone, Tate Alegria MD Unavailable Unavailable McHone, Tate Alegria MD Unavailable Unavailable McHone, Tate Alegria MD Unavailable Unavailable McHone, Tate Alegria MD Unavailable Unavailable McHone, Tate Alegria MD Unavailable Unavailable McHone, R Raji ORTIZ Unavailable Unavailable McHone, R Raji ORTIZ Unavailable Unavailable McHone, Tate Alegria MD Unavailable Unavailable McHone, Tate Alegria MD Unavailable Unavailable McHone, Tate Alegria MD Unavailable Unavailable McHone, Tate Alegria MD Unavailable Unavailable McHone, Tate Alegria MD Unavailable Unavailable McHone, Tate Alegria MD Unavailable Unavailable McHone, Tate Alegria MD Unavailable Unavailable McHone, Tate Alegria MD Unavailable Unavailable McHone, Tate Alegria MD Unavailable Unavailable McHone, Tate Alegria MD Unavailable Unavailable McHone, Tate Alegria MD Unavailable Unavailable McHone, Tate Alegria MD Unavailable Unavailable McHone, Tate Alegria MD Unavailable Unavailable McHone, Tate Alegria MD Unavailable Unavailable McHone, Tate Alegria MD Unavailable Unavailable McHone, Tate Alegria MD Unavailable Unavailable McHone, Tate Alegria MD Unavailable Unavailable McHone, Tate Alegria MD Unavailable Unavailable McHone, Tate Alegria MD Unavailable Unavailable McHone, Tate Alegria MD Unavailable Unavailable McHone, Tate Alegria MD Unavailable Unavailable McHone, Tate Alegria MD Unavailable Unavailable McHone, Tate Alegria MD Unavailable Unavailable McHone, Tate Alegria MD Unavailable Unavailable McHone, Tate Alegria MD Unavailable Unavailable McHone, Tate Alegria MD Unavailable Unavailable McHone, Tate Alegria MD Unavailable Unavailable McHone, Tate Alegria MD Unavailable Unavailable McHone, Tate Alegria MD Unavailable Unavailable McHone, Tate Alegria MD Unavailable Unavailable McHone, Tate Alegria MD Unavailable Unavailable McHone, Tate Alegria MD Unavailable Unavailable McHone, Tate Alegria MD Unavailable Unavailable McHone, Tate Alegria MD Unavailable Unavailable McHone, Tate Alegria MD Unavailable Unavailable McHone, Tate Alegria MD Unavailable Unavailable McHone, Tate Alegria MD Unavailable Unavailable McHone, Tate Alegria MD Unavailable Unavailable McHone, Tate Alegria MD Unavailable Unavailable McHone, Tate Alegria MD Unavailable Unavailable McHone, Tate Alegria MD Unavailable Unavailable McHone, Tate Alegria MD Unavailable Unavailable McHone, Tate Alegria MD Unavailable Unavailable McHone, Tate Alegria MD Unavailable Unavailable McHone, Tate Alegria MD Unavailable Unavailable McHone, Tate Alegria MD Unavailable Unavailable McHone, Tate Alegria MD Unavailable Unavailable McHone, R Raji MD Unavailable Unavailable McHone, R Raji MD Unavailable Unavailable McHone, R Raji MD Unavailable Unavailable McHone, R Raji MD Unavailable Unavailable McHone, R Raji MD Unavailable Unavailable McHone, R Raji MD Unavailable Unavailable McHone, R Raji MD Unavailable Unavailable McHone, R Raji MD Unavailable Unavailable McHone, R Raji MD Unavailable Unavailable McHone, R Raji MD Unavailable Unavailable McHone, R Raji MD Unavailable Unavailable McHone, R Raji MD Unavailable Unavailable Re-disclosure Warning The records that you are about to access may contain information from federally-assisted alcohol or drug abuse programs. If such information is present, then the following federally mandated warning applies: This information has been disclosed to you from records protected by federal confidentiality rules (42 CFR part 2). The federal rules prohibit you from making any further disclosure of this information unless further disclosure is expressly permitted by the written consent of the person to whom it pertains or as otherwise permitted by 42 CFR part 2. A general authorization for the release of medical or other information is NOT sufficient for this purpose. The Federal rules restrict any use of the information to criminally investigate or prosecute any alcohol or drug abuse patient.The records that you are about to access may contain highly sensitive health information, the redisclosure of which is protected by Article 27-F of the [facility] Public Health law. If you continue you may have access to information: Regarding HIV / AIDS; Provided by facilities licensed or operated by the [facility] Office of Mental Health; or Provided by the [facility] Office for People With Developmental Disabilities. If such information is present, then the following [facility] mandated warning applies: This information has been disclosed to you from confidential records which are protected by state law. State law prohibits you from making any further disclosure of this information without the specific written consent of the person to whom it pertains, or as otherwise permitted by law. Any unauthorized further disclosure in violation of state law may result in a fine or [place] health [facility] sentence or both. A general authorization for the release of medical or other information is NOT sufficient authorization for further disc losure. Allergies and Adverse Reactions Type Description Substance Reaction Status Data Source(s ) Adverse Reaction Adverse Reaction NSAIDS ME [facility]ENT ([facility]) Propensity to adverse reactions NSAIDS Nsaids Acti ve [facility] Family History Family Member Name Family Member Gender Family Member Status Date o f Status Description Data Source(s) Unknown Unknown Problem [facility] ([facility]) Unknown Female Problem [facility] ([facility] ) Unknown Female Problem [facility] ([facility] ) Unknown Female Problem [facility] ) Unknown Female Problem [facility] ([facility] ) Unknown Female Problem [facility] ([facility]) Encounters Encounter Providers Location Date Indications Data Source(s ) O Attender: Mamadou GREEN 04/13/19 12:34:34 PM EST - 04/13/2020 01:24:27 PM EST [facility] ([facility] ) Outpatient Referrer: Sarthak Montana MD 03/08/2020 11:25: 52 AM EST [facility] Outpatient Referrer: Sarthak Montana MD [email or web address].PAT 09:49:23 AM EST - 02/21/2020 09:49:27 AM EST [facility] Inpatient Attender: Sarthak Pemberton DAttender: Gregory Frazier Admitter: Sarthak Montana MDReferrer: Sarthak Montana MD [email or web address] 02/16/2020 0 9:55:13 AM EST - 02/25/2020 01:45:00 PM EST [facility] Patient discharged. Outpatient Referrer: Sarthak Montana MD 02/02/2020 11:42: 03 AM EST [facility] Outpatient Attender: Sarthak Montana MD [place]/ [facility] 02/02/2020 11:40:00 AM EST [facility] Inpatient Attender: QUINTON PRIDE MD 01/22/2020 0 6:37:49 PM EDT Lab [facility] Inpatient Attender: QUINTON PRIDE MDAdmitt er: QUINTON PRIDE MD 01/22/2020 03:40:00 PM EDT - 01/25/2020 04:48:00 PM ES T SEPSIS FROM URINARY TRACT INFECTION FEVER S/P URETERAL STENT [facility] SEPSIS FROM URINARY TRACT INFECTION FEVE R S/P URETERAL STENT Patient discharged. Inpatient Attender: QUINTON PRIDE MD 01/22/2020 0 3:40:00 PM EDT [facility] ( in Healthcare facility) Attender: LA PRIDE MDAdmitter: QUINTON PRIDE MDConsultant: REMBERTO MARTI MD 01/22/2020 03:40:00 PM EDT [facility] Inpatient Attender: Raji Wynne MD 01/20/2020 01:27:5 0 PM EDT [facility] [place] [facility] D Attender: Raji Wynne MD 11:54:00 AM EDT - 01/21/2020 02:23:00 PM EDT [facility] Inpatient Attender: Raji Wynne MDAdmitter: Raji Sharp MD 01/20/2020 11:54:00 AM EDT - 01/21/2020 02:23:00 PM EDT RENAL CALCULUS HYDRONEPHROSIS [facility] RENAL CALCULUS HYDRONEPHROSIS Patient discharged. [place] ( in Healthcare facility) Attender: Klaus Wynne MDAdmitter: Raji Wynne MDConsultant: REMBERTO MARTI MD 01/20/2020 11:54:00 AM EDT [facility] Outpatient Attender: SHARON GREEN Physical Therapy 12/30/2019 0 9:15:00 AM EDT [facility] ([facility]) Office Visit Attender: SHARON GREEN Physical Therapy 2019 08:30:00 AM EDT [facility] ([facility]) Outpatient Attender: SHARON GREEN Physical Therapy 11/14/2019 0 5:30:00 PM EDT [facility] ([facility]) Outpatient Attender: SHARON GREEN Physical Therapy 11/07/2019 1 1:00:00 AM EDT [facility] ([facility]) Attender: Keturah Gordon (Jack) MDReferrer: PREET CATALAN MD 10/03/2019 08:20:07 PM EDT [facility] Outpatient Attender: Soledad Khanna NP [place]/ [facility] 09/22/2019 02:30:00 PM EDT [facility] ([facility] Outpatient Attender: Shanae GREEN Main Office 09/02/2019 10:15:0 0 AM EDT [facility] ([facility]) Outpatient Referrer: Sarthak Montana MD 05/21/2019 12:07: 05 PM EST [facility] Outpatient Attender: Soledad Hernandez/ Isaak landon 05/21/2019 12:00:00 PM EST [facility] ([facility] Medications Medication Brand Name Start Date Product Form Dose Route Admi nistrative Instructions Pharmacy Instructions Status Indications Reaction Description Data Source(s) Blood Pressure Monitor Automatic/Arm 03/15/2020 12:00:00 AM EST active [facility] ([facility]) Tamsulosin hydrochloride 0.4 MG Oral Capsule Tamsulosin HCL 03/14/2020 12:00:00 AM EST ORAL active [facility] ([facility]) Sulfamethoxazole 800 MG / Trimethoprim 160 MG Oral Tablet [B actrim] Bactrim DS 03/08/2020 12:00:00 AM EST ORAL active [facility] ([facility]) normal saline flush 0.9 % injection 3 mL [id number] 02/25/2020 02:00:00 PM EST 3 mL Intravenous active 3 mL , Intravenous, Every 8 hours (scheduled), First dose on Sun02/25/20 at 1400, PACU (only)
flush per protocol, D/C Main IV fluid if appropriate
[facility] Medication administered onsite ondansetron (ZOFRAN) injection 4 mg [id number] 02/25/2020 12:07:2 3 PM EST 4 mg Intravenous active 4 mg, In travenous, Once as needed, nausea, vomiting, Starting Sun02/25/20 at 1207, For 1 dose, PACU (only)
If not given in last 4 hours
[facility] Medication administered onsite Albuterol 0.833 MG/ML / Ipratropium Brom horacio 0.167 MG/ML Inhalant Solution ipratropium-albuterol (DUO-NEB) 0.5-2.5 mg/mL nebulizer solution 3 mL ipratropium-albuterol (DUO-NEB) 0.5-2.5 mg/mL nebulizer solution 3 mL 02/25/2020 12:07:23 PM EST 3 mL Inhalation active 3 mL, Inhalation, Once as needed, shortness of breath, Starting Sun02/25/20 at 1207, For 1 dose, PACU (only) [facility] Medication administered onsite 10 ML Atropine Sulfate 0.1 MG/ML Prefill ed Syringe atropine sulfate injection 0.5 mg atropine sulfate injection 0.5 mg 02/25/2020 12:07:22 PM EST 0.5 mg active 0.5 mg, Intrave nous Push, Every 5 min PRN, other, As needed, for heart rate less than 60 BPM and the patient is hemodynamically unstable and/or SBP is less than 90mmHg, Starting Sun02/25/20 at 1207, For 1 day, PACU (only)
Not to exceed a total of 3 mg or 0.04 mg/kg. Max of 6 doses
[facility] Medication administered onsite HYDROmorphone (DILAUDID) injection 0.5 mg [id number] 02/25/2020 12:07:22 PM EST 0.5 mg Intravenous active 0.5 mg, Intravenous, Every 5 min PRN, severe pain (7-10), Starting Sun02/25/20 at 1207, For 5 doses, PACU (only) [facility] Medication administered onsite fentaNYL Citrate (PF) (SUBLIMAZE) injection 25 mcg [id number] 02/25/2020 12:07:22 PM EST 25 ug Intravenous active 25 mcg, Intravenous, Every 5 min PRN, moderate pain (4 to 6), Starting Sun02/25/20 at 1207, For 5 doses, PACU (only) [facility] Medication administered onsite normal saline flush 0.9 % injection 3 mL [id number] 02/25/2020 10:00:00 AM EST 3 mL Intravenous active 3 mL , Intravenous, Every 8 hours (scheduled), First dose on Sun02/25/20 at 1000, Pre-op
Rapid push positive pressure flushing shall be performed with a 10 cc normal saline syringe to check the PATENCY of a PIV site prior to any infusion therapy initiation unless resistance is met.
[facility] Medication administered onsite tramadol hydrochloride 50 MG Oral Tablet Tramadol HCL 11/07/2019 12:00:00 AM EDT active [facility] Triamcinolone Acetonide 1 MG/ML Topical Cream Triamcinolone Acetonide 09/01/2019 12:00:00 AM EDT active [facility] ([facility]) Nystatin 100 UNT/MG Topical Powder [Nyamyc] Nyamyc 09/01/2019 12:00:00 AM EDT active [facility] ([facility]) Betamethasone 0.5 MG/ML / Clotrimazole 10 MG/ML Topica l Cream Clotrimazole/Betamethasone Dipropionate 09/01/2019 12:00:00 AM EDT active [facility] ([facility]) sildenafil 100 MG Oral Tablet [Viagra] Viagra 09/01/2019 12:00:00 AM EDT ORAL active [facility] ([facility]) Insurance Providers Payer name Policy type / Coverage type Policy ID Covered republican ID Covered republican's relationship to [place] Policy [place] Plan Information [facility] Health Plans Commercial Insurance Co. [id number] Fe f [id number] SELF PAY ONLY [id number] SP [id number] WELLCARE [id number] SP [id number] [facility] [id number] Fe [id number] INSURANCE COVID-19 COVID Fe C OVID [facility] [id number] Fe [id number] [facility] MEDICARE [id number] INSURANCE COVID-19 [id number] [facility] [id number] MEDICARE NICOLE [id number] S [id number] WELLCARE HEA [id number] S [id number] [facility] HEALTH PLANS CLAIMS DEPT [id number] [facility] [id number] SP [id number] [place] [employer] [id number] SP [id number] [facility] MED[facility] [id number] Fe [id number] MVP PREMIER EXCHANGE [id number] Fe [id number] MEDICARE [id number] Fe [id number] MVP [id number] Fe [id number] MVP [id number] Fe [id number] WELLCARE MEDICARE PI PI Wellcare MCR - To Ppo Commercial [id number] Self [id number] MVP Indemnity Commercial [id number] Self [id number] Wellcare MCR - To Ppo Commercial [id number] Self [id number] Wellcare-[employer] Opts Ppo Commercial [id number] Self [id number] MVP Health Plan Medigap Part B [id number] Family Dependent [id number] [employer] Opts Ppo Commercial [id number] Self [id number] MVP PREMIER EXCHANGE [id number] Fe [id number] MVP Health Plan Health Maintenance Organization (HMO) [id number] Family Dependent [id number] MEDICARE [id number] Fe [id number] MEDICARE C [id number] S [id number] A MVP HEALTH CARE O [id number] P [id number] MVP Indemnity Commercial [id number] Self [id number] MEDICARE [id number] Fe [id number] A MVP HEALTH CARE HEA [id number] SP [id number] UNAVAILABLE UNAVAILA BLE MEDICARE MCA [id number] S [id number] A MVP HEALTH CARE HEA [id number] SP [id number] MEDICARE PI PI MVP PREMIER EXCHANGE PI PI MEDICARE [id number] SP [id number] A MVP HEALTH CARE [id number] WI2 80 [id number] MVP H [id number] Self [id number] MVP H [id number] Self [id number] MEDICARE A [id number] Self [id number] A [place] Insurance Commercial [id number] Family Dependent [id number] BS [place] Medigap Part B [id number] Family Depend ent [id number] BS [place] Medigap Part B [id number] BS [place] Medigap Part B [id number] Family Depend ent [id number] MVP (pr) Commercial [id number] Family Dependent [id number] MVP (pr) Commercial [id number] Family Dependent [id number] MVP H [id number] Self [id number] MVP [id number] Fe [id number] [place] Insurance Commercial [id number] Family Dependent [id number] BS [place] Medigap Part B [id number] Family Depend ent [id number] BS [place] Medigap Part B [id number] BS [place] Medigap Part B [id number] Family Depend ent [id number] MVP (pr) Commercial [id number] Family Dependent [id number] [place] Commercial [id number] Family Dependent [id number] BS [place] Medigap Part B [id number] Family Depend ent [id number] BS [place] Medigap Part B [id number] BS [place] Medigap Part B [id number] Family Depend ent [id number] MVP (pr) Commercial [id number] Family Dependent [id number] MVP HEALTH CARE [id number] SP [id number] MEDICARE [id number] SP [id number] A MVP HEALTH CARE [id number] SP 80 [id number] MVP PREMIER EXCHANGE [id number] Fe [id number] MVP HEALTH CARE [id number] SP [id number] MVP Indemnity Commercial Self MVP PREMIER EXCHANGE [id number] Fe [id number] MVP Cigna Ppo Commercial Family Dependent MVP Gold Commercial Family Dependent [place] PPO [id number] EXCELLUS BCBS B [id number] P VYS [id number] MVP (pr) Commercial Family Dependent [place] Insurance Commercial Family Dependent BS [place] Medigap Part B Family Dependent BS [place] Medigap Part B BS [place] Commercial Family Dependent [id number] Problems, Conditions, and Diagnoses Code Display Name Description Problem Type Effective Dates Data Source(s) N20.1 Calculus of ureter Calculus of ureter Diagnosis 04/2019 08:17:00 AM EST [facility] U07.1 COVID-19 COVID-19 Diagnosis 02/21/2020 09:49:23 AM ES T [facility] Surgeries/Procedures Procedure Description Date Indications Data Source(s) CYSTO W/SIMPLE REMOVAL STONE & STENT 03/08/2020 12:00: 00 AM EST [facility] ([facility] FL RETROGRADE PYELOGRAM RIGHT FL RETROGRADE PYELOGRAM RIGHT S TAT 02/25/2020 1:02 PM EST 02/25/2020 06:02:[address] [facility] GLUC BLD GLUC MNTR DEV CLEARED FDA SPEC HOME USE POCT GLUCOSE Routine 02/25/2020 12:51 PM EST 02/25/2020 05:51:00 PM EST [facility] GLUC BLD GLUC MNTR DEV CLEARED FDA SPEC HOME USE POCT GLUCOSE Routine 02/25/2020 9:27 AM EST 02/25/2020 02:27:00 PM EST [facility] CYSTO W/INSERT URETERAL STENT 02/25/2020 12:00:[address] [facility] ([facility]) CYSTO W/URETEROSCOPY W/RMVL/MANJ STONES 02/25/2020 12: 00:00 AM EST [facility] ([facility]) CYSTO W/URETEROSCOPY W/LITHOTRIPSY 02/25/2020 12:00:00 AM EST [facility] ([facility]) Echocardiography, Tranthoracic Real-Time Image Documentation 01/23/2020 12:00:00 AM EDT [facility] Electrocardiogram Interpretation & Report Only 020 12:00:00 AM EDT [facility] ([facility]) CYSTO W/INSERT URETERAL STENT 01/20/2020 12:00:00 AM E DT [facility] ([facility]) CT ABDOMEN & PELVIS W/O CONTRAST MATERIAL 01/20/2020 1 2:00:00 AM EDT [facility] ([facility]) X-RAY URINARY TRACT EXAM WITH CONTRAST MATERIAL 2019 12:00:00 AM EDT [facility] ([facility]) Physical Therapy Eval - Low Complexity 01/07/2020 12:0 0:00 AM EDT [facility] ([facility] ) RADEX ANKLE COMPLETE MINIMUM 3 VIEWS 12/30/2019 12:00: 00 AM EDT [facility] ([facility]) RADEX ANKLE COMPLETE MINIMUM 3 VIEWS 12/05/2019 12:00: 00 AM EDT [facility] ([facility]) FX Lateral Malleolus (Distal Fibula) W/O Manipulation 11/14/2019 12:00:00 AM EDT [facility] ([facility]) RADEX SHOULDER COMPLETE MINIMUM 2 VIEWS 11/14/2019 12: 00:00 AM EDT [facility] ([facility]) RADEX ANKLE COMPLETE MINIMUM 3 VIEWS 11/14/2019 12:00: 00 AM EDT [facility] ([facility]) RADEX SHOULDER COMPLETE MINIMUM 2 VIEWS 11/07/2019 12: 00:00 AM EDT [facility] ([facility]) RADEX ANKLE COMPLETE MINIMUM 3 VIEWS 11/07/2019 12:00: 00 AM EDT [facility] ([facility] ) MYOCARDIAL SPECT MULTIPLE STUDIES 09/29/2019 12:00:00 AM EDT [facility] ([facility]) CV STRS TST XERS&/OR RX CONT ECG PHYS SI&R 09/29/2019 12:00:00 AM EDT [facility] ([facility]) US RETROPERITONEAL REAL TIME W/IMAGE COMPLETE 09/22/19 12:00:00 AM EDT [facility] ([facility]) US RETROPERITONEAL REAL TIME W/IMAGE COMPLETE 09/22/19 12:00:00 AM EDT [facility] ([facility]) ECG ROUTINE ECG W/LEAST 12 LDS W/I&R 09/02/2019 12:00: 00 AM EDT [facility] ([facility]) Results ID Date Data Source [id number] 04/13/2020 12:00:00 AM EST [facility] Name Value Range Interpretation Code Description Data Daphney rce(s) Supporting Document(s) Carestart Rapid COVID Antigen Test Positive [facility] This lab was reported by Madeline altamirano. ID Date Data Source [id number] 04/13/2020 12:00:00 AM EST [facility] Name Value Range Interpretation Code Description Data Daphney rce(s) Supporting Document(s) SARS-CoV-2 (COVID-19) RNA [Presence] in Respiratory specimen by [facility] with probe detection Not Detected [facility] This lab was ordered by [facility] and reported by [employer] ID Date Data Source [id number] 03/30/2020 12:00:00 AM EST [facility] Name Value Range Interpretation Code Description Data Daphney rce(s) Supporting Document(s) SARS coronavirus 2 RNA Not Detected [facility] This lab was ordered by [facility] and rep orted by [facility]. ID Date Data Source [id number] 03/08/2020 12:43:00 PM EST [facility] ([facility]) Name Value Range Interpretation Code Description Data Daphney rce(s) Supporting Document(s) Glucose [Presence] in Urine Laboratory test result [facility] ([facility]) Protein [Presence] in Urine by Test strip Laboratory test result [facility] ([facility]) Ua Nitrite Laboratory test result [facility] ([facility]) Blood [Presence] in Urine by Visual Laboratory test result [facility] ([facility] [place]) Ua Leuko Laboratory test result [facility] ([facility]) Color of Urine Laboratory test result [facility] ([facility]) Ketones [Presence] in Urine by Test strip Laboratory test result [facility] ([facility]) Clarity of Urine Laboratory test result [facility] ([facility] [place]) Ua Specific [place] 1.015 1.003-1.030 [facility] NT ([facility] [place]) Bilirubin.total [Presence] in Urine by Test strip Laboratory test res ult [facility] ([facility] [place]) pH of Urine by Test strip 5.5 5.0-7.5 [facility] ([facility]) Urobilinogen [Mass/volume] in Urine by Test strip 0.2 E.U./dL 0.0-1.0 [facility] ([facility]) ID Date Data Source [id number] 03/08/2020 11:28:00 AM EST [facility] XRAY ABDOMEN KUBCLINICAL HISTORY: Calculus of ureter.COMPARISON: 02/02/2020TECHNIQUE: AP view of the abdomen.FINDINGS: A right ureteral stent extends from the expected location of the right renal pelvis to the midline of the urinary bladder. There is a faint 3 mm calcification projecting over the lower pole right kidney. No left renal calcifications are appreciated. No calcifications are noted along course of the right ureteral stent.There is no soft tissue mass or small bowel obstruction. Surgical clips are present right upper quadrant.There are marked degenerative changes in the thoracolumbar spine.IMPRESSION: Right ureteral stent placement. Small light right lower pole renal calculus. No right ureteral calculi are appreciated on the current study.Dictated by: Phani BELTRAN M.D. on 03/08/2020 Transcribed by: kadi on 03/08/2020 11:37 AMCDS G code: ,CDS Modifier: ,cc: Name Value Range Interpretation Code Description Data Daphney rce(s) Supporting Document(s) ID Date Data Source [id number] 02/25/2020 07:26:00 PM EST [facility] ([facility]) Name Value Range Interpretation Code Description Data Daphney rce(s) Supporting Document(s) Laboratory test finding (navigational concept) 140 mg/dL 70-99 [facility] ([facility] [place]) PERFORMED BY [facility] ID Date Data Source [id number] 02/25/2020 01:55:29 PM EST [address] [address]Hqheqlz Name: JOSE BRUNOB: 1955Sex: MOrdering Provider: SARTHAK STRANGEuthtim Prov: SARTHAK PATRICIAefstorm Provider: Procedure Performed: FL RETROGRADE PYELOGRAM RIGHTExam Date: 02/25/2020 13:02MRN: [id number] Number: [id number] Class: InpatientAccount #: [id number] for Exam: Right ureteral stone [N20.1]Technique: Fluoroscopy with no digital spot images obtained.Fluoroscopy time: 11 SecondsNumber of Spot Images: 0Comparison: NoneFindings: C-arm was performed in OR. 7 spot radiographs are obtained. Fluoroscopic time: 11.2 seconds. There is placement of a ureteral stent.IMPRESSION: C-arm in OR as described.Report electronically signed by: JAMES CARBAJAL On 02/25/2020 1:55 PMWorkstation ID: [id number] Name Value Range Interpretation Code Description Data Daphney rce(s) Supporting Document(s) ID Date Data Source [id number] 02/25/2020 02:26:46 PM EST [facility] [place] [facility] Name Value Range Interpretation Code Description Data [facility] rce(s) Supporting Document(s) POC NOVA GLU 140 mg/dL (70-99) H [facility] [place] [facility] [place] PERFORMED BY [facility] ID Date Data Source [id number] 02/25/2020 11:56:00 AM EST [facility] ([facility]) Name Value Range Interpretation Code Description Data [facility] rce(s) Supporting Document(s) Composition in Stone Laboratory test result [facility] ([facility]) Calculi composed primarily of: 90% calcium oxalate [...] composition determined by FTIR analysis. Performed By: [place] [address] Spring Floor Service Worker: Ny Mckeon MD Size [Entitic volume] of Stone Laboratory test result [facility] ([facility]) Unit: mm Number of Stones 1 [facility] ([facility]) Weight of Unspecified specimen 166 mg [facility] ([facility]) Appearance of Stone Laboratory test result [facility] ([facility]) Specimen consists of a single, large, brown, irregular calculus. ID Date Data Source [id number] 02/29/2020 07:49:20 AM EST [facility] [place] [facility] [place] Name Value Range Interpretation Code Description Data [facility] rce(s) Supporting Document(s) COMPOSITION [facility] [place] [facility] See Note Calculi composed primarily of: 90% calcium oxalate [...] composition determined by FTIR analysis. Performed By: [facility] [address] [place] [id number] [address] Floor Service Worker: Ny Mckeon MD MASS 166 mg [facility] [place] [facility] [place] CALCULI NUMBER 1 [facility] [place] [facility] [place] CALCULI SIZE [facility] [place] [facility] [place] > 9Unit: mm CALCULI DESCRIPTION [facility] [place] [facility] [place] See Note Specimen consists of a single, large, brown, irregular calculus. ID Date Data Source [id number] 02/25/2020 11:49:00 AM EST [facility] NT INFORMATIONPatient MRN Name Date of Age Gend*PT [id number] Alexei Villatoronis Marco Antonio 1955 64 years M SDCXPT Location Admission Date/Time Visit ID [facility]20816 --- Sarthak Montana MD([id number]) EPI ID CSN Admitting Provider [id number] Sarthak Montana MD([id number])OPERATIVE NOTEPatient Name: Jose VillatoroMedical Record Number: [id number] of Procedure: 02/25/2020Surgeon: Sarthak Montana M.D.Pre-operative diagnosis: right ureteral calculiPost-operative diagnosis: SameProcedure: cystoscopy, right ureteroscopy, basket stone removal, right ureteralstent exchangeAnesthesia: GABlood/fluids administered: crystalloidEstimated blood loss: minimalComplications: NoneSpecimens: right ureteral calculiDrains: Right 6 Malagasy multi-length ureteral stentProcedure:Informed consent was obtained. Antibiotics were given. The patient was broughtto the operating room and anesthesia was administered. The patient was preppedand draped in the lithotomy position with the appropriate positioningprecautions. A time-out procedure was completed including intraoperativeverification of patient identity, laterality, and procedure.Cystourethroscopy revealed a normal urethra.Upon entering the bladder, the bilateral ureteral orifices were identified,effluxing clear, yellow urine. The bladder had no tumors or other abnormalitiesnoted.A wire was passed alongside the existing right ureteral stent without issue withcystoscopic and fluoroscopic guidance. I removed the right ureteral stent intactwith a grasper without difficulty.Right rigid ureteroscopy was performed over a safety wire. I encountered twostones in the right ureter,both of which were removed with a basket. No otherStones identified up to the right UPJ.A right ureteral access sheath was inserted over a wire using fluoroscopicguidance without difficulty.I performed right flexible ureteropyeloscopy revealing no stones in the rightrenal pelvis or calyces, each of which were carefully inspected.No other abnormalities or stones were identified.The right ureteral access sheath was removed with a w blanka in place.A right 6 Malagasy multi-length ureteral stent was placed using cystoscopic andfluoroscopic guidance without difficulty.The bladder was emptied and the scope was withdrawn.There were no surgical complications.Sarthak Montana M.D.Date: 02/25/2020Time: 11:46 AM Name Value Range Interpretation Code Description Data Daphney rce(s) Supporting Document(s) ID Date Data Source [id number] 02/25/2020 10:06:34 AM EST [facility] INFORMATIONPatient MRN Name Date of Age Gend*PT [id number] Jose Villatoro 1955 64 years M SDCXPT Location Admission Date/Time Visit ID [facility]/25/20 0817 --- Sarthak Montana MD([id number]) EPI ID [facility] Admitting Provider [id number] Sarthak Montana MD([id number])Pre-Procedure History and Physical:The history and physical were reviewed and the patient was examined.Reviewed and updated. No changes.Sarthak Montana MD02/24/2010:06 AM Name Value Range Interpretation Code Description Data Daphney rce(s) Supporting Document(s) ID Date Data Source [id number] 02/25/2020 09:27:00 AM EST [facility] ([facility]) Name Value Range Interpretation Code Description Data Daphney rce(s) Supporting Document(s) Glucose [Mass/volume] in Capillary blood by Glucometer 140 mg/dL 70- 99 [facility] ([facility] [place]) PERFORMED BY [facility] ID Date Data Source [id number] 02/25/2020 09:30:08 AM EST [facility] [place] [facility] Name Value Range Interpretation Code Description Data Daphney rce(s) Supporting Document(s) POC NOVA GLU 143 mg/dL (70-99) H [facility] [place] [facility] [place] PERFORMED BY [facility] ID Date Data Source [id number] 02/21/2020 09:40:00 AM EST [facility] Name Value Range Interpretation Code Description Data Daphney rce(s) Supporting Document(s) SARS coronavirus 2 RNA [facility] This lab was ordered by [facility] [place] [facility] and reported by [employer]. ID Date Data Source [id number] 02/22/2020 05:08:25 PM EST Lab [facility] Name Value Range Interpretation Code Description Data Daphney rce(s) Supporting Document(s) SARS-COV-2 [facility] Not DetectedReference range: Not Detecte d This nucleic acid amplification test was developed and its performance characteristics determined by [employer]. Nucleic acid amplification tests include PCR and TMA. This test has not been FDA cleared or approved. This test has been authorized by FDA under an Emergency Use Authorization (EUA). This test is only authorized for the duration of time the declaration that circumstances exist justifying the authorization of the emergency use of in vitro diagnostic tests for detection of SARS-CoV-2 virus and/or diagnosis of COVID-19 infection under section 564(b)(1) of the Act, 21 U.S.C. 360bbb-3(b) (1), unless the authorization is terminated or revoked sooner. When diagnostic testing is negative, the possibility of a false negative result should be considered in the context of a patient's recent exposures and the presence of clinical signs and symptoms consistent with COVID- 19. An individual without symptoms of COVID- 19 and who is not shedding SARS -CoV-2 virus would expect to have a negative (not detected) result in this assay. Performed At: [email or web address] [place], [place] [id number] Johnny Church PhD Ph:[id number] ID Date Data Source [id number] 02/02/2020 12:54:00 PM EST [facility] ([facility] [place] Name Value Range Interpretation Code Description Data [facility] rce(s) Supporting Document(s) Protein [Presence] in Urine by Test strip Laboratory test result [facility] ([facility] [place]) Glucose [Presence] in Urine Laboratory test result [facility] ([facility] [place]) Ua Nitrite Laboratory test result [facility] ([facility] [place]) Blood [Presence] in Urine by Visual Laboratory test result [facility] ([facility] [place]) Ua Leuko Laboratory test result [facility] ([facility]) Color of Urine Laboratory test result [facility] ([facility]) Clarity of Urine Laboratory test result [facility] ([facility] [place]) Ketones [Presence] in Urine by Test strip Laboratory test result [facility] ([facility]) Bilirubin.total [Presence] in Urine by Test strip Laboratory test res ult [facility] ([facility]) Ua Specific [place] 1.015 1.003-1.030 [facility] NT ([facility]) pH of Urine by Test strip 5.5 5.0-7.5 [facility] ([facility]) Urobilinogen [Mass/volume] in Urine by Test strip 0.2 E.U./dL 0.0-1.0 [facility] ([facility]) ID Date Data Source [id number] 02/02/2020 11:47:00 AM EST [facility]: XRAY ABDOMEN KUBCLINICAL HISTORY: Calculus of kidney.COMPARISON: 04/2019TECHNIQUE: AP view of the abdomen.FINDINGS: There is a right ureteral stent in place. There is suspicion for 2 stones in the proximal ureter along the course of the stent at the L4 level measuring 6 mm each. There may be 2 more stones in the right ureter distally in the region of the UVJ or in the bladder measuring 3 mm each.There are 2 stones at the lower pole of the right kidney measuring 3 mm each.No definite stones are seen in the left kidney. Evaluation for kidney stones is suboptimal because of superimposed stool and bowel gas.Elevated right diaphragm noted, similar to the prior chest x-ray from 02/2018.IMPRESSION: 1. Right ureteral stent in place.2. There could be up to 4 stones in the right ureter with 2 stones suspected at the L4 level and another 2 stones suspected near the UVJ.3. 2 nonobstructing stones at the lower pole of the right kidney.4. No definite stones in the left kidney.Dictated by: JACOB BARRERA on 02/02/2020 Transcribed by: kadi on 02/02/2020 12:17 PMCDS G code: ,CDS Modifier: ,cc: Name Value Range Interpretation Code Description Data Daphney rce(s) Supporting Document(s) ID Date Data Source [id number] 01/25/2020 02:17:00 PM EST [facility] ([facility] Name Value Range Interpretation Code Description Data Daphney rce(s) Supporting Document(s) Sodium 145 [facility] ([facility]) Calcium [Mass/volume] in Serum or Plasma 8.0 [facility] ([facility]) Chloride [Moles/volume] in Serum or Plasma 115 [facility] ([facility]) Carbon dioxide, total [Moles/volume] in Serum or Plasma 23 [facility] ([facility]) Potassium [Moles/volume] in Serum or Plasma 3.8 [facility] ([facility]) Creatinine 1.29 0.80-1.30 [facility] ([facility]) Blood Urea Nitrogen 17 7-24 [facility] ([facility]) Glucose 192 70-99 [facility] (Cardiology A [facility]) Glomerular filtration rate/1.73 sq M.pre dicted [Volume Rate/Area] in Serum or Plasma by Creatinine-based formula (MDRD) 56 [facility] ([facility]) ID Date Data Source [id number] 01/25/2020 02:17:00 PM EST [facility] ([facility]) Name Value Range Interpretation Code Description Data Daphney rce(s) Supporting Document(s) Red Blood Count 3.88 4.60-6.10 [facility] ([facility]) White Blood Count 10.1 4.1-11.0 [facility] ([facility]) Hemoglobin 12.6 13.5-18.0 [facility] ([facility]) Hematocrit 37.6 41.0-53.0 [facility] ([facility]) Platelets 192 150-450 [facility] (Cardiology [facility]) ID Date Data Source [id number] 01/25/2020 06:18:00 AM EST [facility] ([facility] [place] Name Value Range Interpretation Code Description Data Daphney rce(s) Supporting Document(s) Sodium [Moles/volume] in Serum or Plasma 145 mmol/L 136-145 [facility] ([facility]) Carbon dioxide, total [Moles/volume] in Serum or Plasma 23 mmol/L 22 -31 [facility] ([facility] [facility] [place]) Potassium 3.8 mmol/L 3.6-5.2 [facility] ([facility] [employer] [facility]) Chloride [Moles/volume] in Serum or Plasma 115 mmol/L 100-108 [facility] ([facility] [employer] [facility]) Creatinine [Mass/volume] in Serum or Plasma 1.29 mg/dL 0.80-1.30 [facility] ([facility] [employer] [facility]) Urea nitrogen [Mass/volume] in Serum or Plasma 17 mg/dL 7-24 [facility] ([facility] [employer] [facility]) Anion gap 3 in Serum or Plasma 7 mmol/L 7-16 [facility] ([facility] [employer] [facility]) Urea nitrogen/Creatinine [Mass Ratio] in Serum or Plasma 13.2 RATIO 10.0-20.0 [facility] ([facility] [employer] [facility]) Calcium [Mass/volume] in Serum or Plasma 8.0 mg/dL 8.4-10.2 [facility] ([facility] [employer] [facility]) Glucose [Mass/volume] in Serum or Plasma 192 mg/dL 70-99 [facility] ([facility] [employer] [facility]) Glomerular filtration rate/1.73 sq M.pre dicted [Volume Rate/Area] in Serum or Plasma by Creatinine-based formula (MDRD) 56 ml/min/1.73m2 [facility] ([facility] [employer] [facility]) GFR Interpretation Laboratory test result [facility] ([facility] [employer] [facility]) <content></content>
<content> </con tent>
<content>NORMAL KIDNEY FUNCTION</content>
<content> OR MILD DISEASE - GFR >OR= 60</content>
<content>CHRONIC KIDNEY DISEASE - GFR 15 - 59</content>
<content>RENAL FAILURE - GFR <15</content>
<content> </content>< br/><content>Est. GFR calculation based on the MDRD</content>
<content>study equation, which assumes a steady</content>
<content>state for creatinine. Est. GFR should not</content>
<content>be used for medication dosing.</content>
<content></content> Glomerular filtration rate/1.73 sq M pre dicted among blacks [Volume Rate/Area] in Serum or Plasma by Creatinine-based formula (MDRD) Laboratory test result [facility] ([facility] [facility]) ID Date Data Source [id number] 01/25/2020 06:18:00 AM EST [facility] ([facility]) Name Value Range Interpretation Code Description Data Daphney rce(s) Supporting Document(s) Erythrocytes [#/volume] in Blood by Automated count 3.88 10*6/uL 4.60 -6.10 [facility] ([facility] [facility]) Leukocytes [#/volume] in Blood by Automated count 10.1 10*3/uL 4.1-11 .0 [facility] ([facility] [employer] [facility]) Hematocrit [Volume Fraction] of Blood by Automated count 37.6 % 4 1.0-53.0 [facility] ([facility] [employer] [facility]) Hemoglobin [Mass/volume] in Blood 12.6 g/dL 13.5-18.0 [facility] ([facility] [employer] [facility]) Erythrocyte mean corpuscular hemoglobin [Entitic mass] by Automated count 32.3 pg 27.0-32.0 [facility] ([facility]) Erythrocyte mean corpuscular hemoglobin concentration [Mass/volume] by Automated count 33.4 g/dL 32.0-36.0 [facility] ([facility]) Erythrocyte mean corpuscular volume [Entitic volume] by Auto mated count 96.8 fL 80.0-95.0 [facility] ([facility]) Platelets [#/volume] in Blood by Automated count 192 10*3/uL 150-450 [facility] ([facility] [facility]) Platelet mean volume [Entitic volume] in Blood by Automated count 8.8 fL 7.1-10.7 [facility] ([facility] [place]) Erythrocyte distribution width [Ratio] by Automated count 14.2 % 10.5-14.5 [facility] ([facility] [facility] [place]) ID Date Data Source [id number] 01/25/2020 07:12:35 AM EST [facility] Name Value Range Interpretation Code Description Data Daphney rce(s) Supporting Document(s) SODIUM 145 mmol/L (136-145) [facility] POTASSIUM 3.8 mmol/L (3.6-5.2) [facility] CHLORIDE 115 mmol/L (100-108) H [facility] CO2 23 mmol/L (22-31) [facility] ANION GAP 7 mmol/L (7-16) [facility] UREA NITROGEN 17 mg/dL (7-24) [facility] CREATININE 1.29 mg/dL (0.80-1.30) [facility] BUN/CREAT RATIO 13.2 RATIO (10.0-20.0) [facility] GLUCOSE 192 mg/dL (70-99) H [facility] CALCIUM 8.0 mg/dL (8.4-10.2) L [facility] GFR 56 ml/min/1.73m2 (>59) L [facility] GFR ( AMER) >60 ml/min/1.73m2 (>59) [facility] GFR INTERPRETATION [facility] --NORMAL KIDNEY FUNCTION OR MILD DISEASE - GFR >OR= 60CHRONIC KIDNEY DISEASE - GFR 15 - 59RENAL FAILURE - GFR <15 Est. GFR calculation based on the MDRDstudy equation, which assumes a steadystate for creatinine. Est. GFR should notbe used for medication dosing. ID Date Data Source [id number] 01/25/2020 06:57:56 AM EST [facility] [place] Name Value Range Interpretation Code Description Data Daphney rce(s) Supporting Document(s) WBC 10.1 10*3/uL (4.1-11.0) [facility] [place] RBC 3.88 10*6/uL (4.60-6.10) L [facility] [place] HGB 12.6 g/dL (13.5-18.0) L [facility] HCT 37.6 % (41.0-53.0) L [facility] MCV 96.8 fL (80.0-95.0) H [facility] MCH 32.3 pg (27.0-32.0) H [facility] MCHC 33.4 g/dL (32.0-36.0) [facility] RDW 14.2 % (10.5-14.5) [facility] PLT 192 10*3/uL (150-450) [facility] MPV 8.8 fL (7.1-10.7) [facility] [place] ID Date Data Source [id number] 01/24/2020 09:50:00 AM EDT [facility] DATE OF EXAM: 01/24/2020ULTRASOUND RETRO PERITONEAL COMPLETE INDICATION: Status post stent removal. Fevers. COMPARISON: None of this type. TECHNIQUE: Multiple longitudinal and transverse sonographic images of the kidneys and bladder were obtained. FINDINGS: The kidneys are normal in position and are of normal size (right 11.3 cm in length and left 11.9 cm in length). The right renal cortical thickness measures 2.0 cm and left renal cortical thickness measures 1.4 cm. There are no suspicious renal cortical abnormalities demonstrated. There is no evidence of hydronephrosis. No abnormal perirenal fluid collections are demonstrated. The urinary bladder is empty, precluding evaluation. IMPRESSION: No evidence of hydronephrosis. D7End of diagnostic report for accession: [id number] Interpreted: Juvenal Elmore MDTranscribed: 01/24/2020 09:38 AMSigned: 01/24/2020 09:50 AM Juvenal Elmore MD [facility] # [id number] BILL # [id number] Name Value Range Interpretation Code Description Data Daphney rce(s) Supporting Document(s) ID Date Data Source [id number] 01/24/2020 06:57:00 AM EDT [facility] ([facility]) Name Value Range Interpretation Code Description Data Daphney rce(s) Supporting Document(s) Sodium [Moles/volume] in Serum or Plasma 141 mmol/L 136-145 [facility] ([facility] [employer] [facility]) Potassium 3.7 mmol/L 3.6-5.2 [facility] (Associ at[facility] [employer] [facility]) Chloride [Moles/volume] in Serum or Plasma 112 mmol/L 100-108 [facility] ([facility] [employer] [facility]) Carbon dioxide, total [Moles/volume] in Serum or Plasma 21 mmol/L 22 -31 [facility] ([facility] [employer] [facility]) Anion gap 3 in Serum or Plasma 8 mmol/L 7-16 [facility] ([facility] [employer] [facility]) Urea nitrogen [Mass/volume] in Serum or Plasma 19 mg/dL 7-24 [facility] ([facility] [employer] [facility]) Urea nitrogen/Creatinine [Mass Ratio] in Serum or Plasma 13.2 RATIO 10.0-20.0 [facility] ([facility] [employer] [facility]) Creatinine [Mass/volume] in Serum or Plasma 1.44 mg/dL 0.80-1.30 [facility] ([facility] [employer] [facility]) Glucose [Mass/volume] in Serum or Plasma 197 mg/dL 70-99 [facility] ([facility] [employer] [facility]) Glomerular filtration rate/1.73 sq M pre dicted among blacks [Volume Rate/Area] in Serum or Plasma by Creatinine-based formula (MDRD) Laboratory test result [facility] ([facility] [employer] [facility]) Calcium [Mass/volume] in Serum or Plasma 7.7 mg/dL 8.4-10.2 [facility] ([facility] [employer] [facility]) Glomerular filtration rate/1.73 sq M.pre dicted [Volume Rate/Area] in Serum or Plasma by Creatinine-based formula (MDRD) 50 ml/min/1.73m2 [facility] ([facility] [place]) GFR Interpretation Laboratory test result [facility] ([facility] [facility] [place]) <content></content>
<content> </con tent>
<content>NORMAL KIDNEY FUNCTION</content>
<content> OR MILD DISEASE - GFR >OR= 60</content>
<content>CHRONIC KIDNEY DISEASE - GFR 15 - 59</content>
<content>RENAL FAILURE - GFR <15</content>
<content> </content>< br/><content>Est. GFR calculation based on the MDRD</content>
<content>study equation, which assumes a steady</content>
<content>state for creatinine. Est. GFR should not</content>
<content>be used for medication dosing.</content>
<content></content> ID Date Data Source [id number] 01/24/2020 06:57:00 AM EDT [facility] ([facility]) Name Value Range Interpretation Code Description Data Daphney rce(s) Supporting Document(s) Erythrocytes [#/volume] in Blood by Automated count 4.04 10*6/uL 4.60 -6.10 [facility] ([facility] [employer] [facility]) Leukocytes [#/volume] in Blood by Automated count 11.8 10*3/uL 4.1-11 .0 [facility] ([facility] [employer] [facility]) Erythrocyte mean corpuscular volume [Entitic volume] by Auto mated count 97.1 fL 80.0-95.0 [facility] ([facility]) Hematocrit [Volume Fraction] of Blood by Automated count 39.2 % 4 1.0-53.0 [facility] ([facility] [employer] [facility]) Hemoglobin [Mass/volume] in Blood 12.9 g/dL 13.5-18.0 [facility] ([facility] [employer] [facility]) Erythrocyte distribution width [Ratio] by Automated count 14.1 % 10.5-14.5 [facility] ([facility] [employer] [facility]) Erythrocyte mean corpuscular hemoglobin concentration [Mass/volume] by Automated count 32.8 g/dL 32.0-36.0 [facility] ([facility]) Erythrocyte mean corpuscular hemoglobin [Entitic mass] by Automated count 31.8 pg 27.0-32.0 [facility] ([facility]) Platelet mean volume [Entitic volume] in Blood by Automated count 9.0 fL 7.1-10.7 [facility] ([facility]) Platelets [#/volume] in Blood by Automated count 152 10*3/uL 150-450 [facility] ([facility] [employer] [facility]) ID Date Data Source [id number] 01/24/2020 07:48:27 AM EDT [facility] Name Value Range Interpretation Code Description Data Daphney rce(s) Supporting Document(s) SODIUM 141 mmol/L (136-145) [facility] POTASSIUM 3.7 mmol/L (3.6-5.2) [facility] CHLORIDE 112 mmol/L (100-108) H [facility] CO2 21 mmol/L (22-31) L [facility] ANION GAP 8 mmol/L (7-16) [facility] UREA NITROGEN 19 mg/dL (7-24) [facility] CREATININE 1.44 mg/dL (0.80-1.30) H [facility] BUN/CREAT RATIO 13.2 RATIO (10.0-20.0) [facility] GLUCOSE 197 mg/dL (70-99) H [facility] CALCIUM 7.7 mg/dL (8.4-10.2) L [facility] GFR 50 ml/min/1.73m2 (>59) L [facility] GFR ( AMER) >60 ml/min/1.73m2 (>59) [facility] GFR INTERPRETATION [facility] --NORMAL KIDNEY FUNCTION OR MILD DISEASE - GFR >OR= 60CHRONIC KIDNEY DISEASE - GFR 15 - 59RENAL FAILURE - GFR <15 Est. GFR calculation based on the MDRDstudy equation, which assumes a steadystate for creatinine. Est. GFR should notbe used for medication dosing. ID Date Data Source [id number] 01/24/2020 07:37:38 AM EDT [facility] [place] Name Value Range Interpretation Code Description Data Daphney rce(s) Supporting Document(s) WBC 11.8 10*3/uL (4.1-11.0) H [facility] RBC 4.04 10*6/uL (4.60-6.10) L [facility] HGB 12.9 g/dL (13.5-18.0) L [facility] HCT 39.2 % (41.0-53.0) L [facility] MCV 97.1 fL (80.0-95.0) H [facility] MCH 31.8 pg (27.0-32.0) [facility] MCHC 32.8 g/dL (32.0-36.0) [facility] RDW 14.1 % (10.5-14.5) [facility] PLT 152 10*3/uL (150-450) [facility] MPV 9.0 fL (7.1-10.7) [facility] ID Date Data Source [id number] 01/23/2020 11:00:00 AM EDT [facility] ([facility] [place]) Name Value Range Interpretation Code Description Data Daphney rce(s) Supporting Document(s) Leukocytes [#/volume] in Blood by Automated count 14.4 10*3/uL 4.1-11 .0 [facility] ([facility] [place]) Erythrocytes [#/volume] in Blood by Automated count 3.93 10*6/uL 4.60 -6.10 [facility] ([facility] [place]) Erythrocyte mean corpuscular volume [Entitic volume] by Auto mated count 96.3 fL 80.0-95.0 [facility] ([facility]) Hemoglobin [Mass/volume] in Blood 12.4 g/dL 13.5-18.0 [facility] ([facility] [employer] [facility]) Hematocrit [Volume Fraction] of Blood by Automated count 37.8 % 4 1.0-53.0 [facility] ([facility] [facility]) Erythrocyte mean corpuscular hemoglobin concentration [Mass/volume] by Automated count 32.8 g/dL 32.0-36.0 [facility] ([facility]) Erythrocyte mean corpuscular hemoglobin [Entitic mass] by Automated count 31.6 pg 27.0-32.0 [facility] ([facility]) Erythrocyte distribution width [Ratio] by Automated count 14.4 % 10.5-14.5 [facility] ([facility] [facility]) Platelets [#/volume] in Blood by Automated count 161 10*3/uL 150-450 [facility] ([facility] [facility]) Platelet mean volume [Entitic volume] in Blood by Automated count 9.1 fL 7.1-10.7 [facility] ([facility]) ID Date Data Source [id number] 01/23/2020 11:00:00 AM EDT [facility] ([facility]) Name Value Range Interpretation Code Description Data Daphney rce(s) Supporting Document(s) Sodium [Moles/volume] in Serum or Plasma 138 mmol/L 136-145 [facility] ([facility] [facility]) Potassium 3.6 mmol/L 3.6-5.2 [facility] (Associ ated [employer]) Chloride [Moles/volume] in Serum or Plasma 106 mmol/L 100-108 [facility] ([facility] [employer] [facility]) Carbon dioxide, total [Moles/volume] in Serum or Plasma 25 mmol/L 22 -31 [facility] ([facility] [facility]) Anion gap 3 in Serum or Plasma 7 mmol/L 7-16 [facility] ([facility] [facility]) Creatinine [Mass/volume] in Serum or Plasma 1.56 mg/dL 0.80-1.30 [facility] ([facility] [facility]) Urea nitrogen [Mass/volume] in Serum or Plasma 20 mg/dL 7-24 [facility] ([facility] [employer] [facility]) Calcium [Mass/volume] in Serum or Plasma 7.7 mg/dL 8.4-10.2 [facility] ([facility] [employer] [facility]) Glucose [Mass/volume] in Serum or Plasma 142 mg/dL 70-99 [facility] ([facility] [employer] [facility]) Urea nitrogen/Creatinine [Mass Ratio] in Serum or Plasma 12.8 RATIO 10.0-20.0 [facility] ([facility] [employer] [facility]) GFR Interpretation Laboratory test result [facility] ([facility] [facility] [facility]) <content></content>
<content> </con tent>
<content>NORMAL KIDNEY FUNCTION</content>
<content> OR MILD DISEASE - GFR >OR= 60</content>
<content>CHRONIC KIDNEY DISEASE - GFR 15 - 59</content>
<content>RENAL FAILURE - GFR <15</content>
<content> </content>< br/><content>Est. GFR calculation based on the MDRD</content>
<content>study equation, which assumes a steady</content>
<content>state for creatinine. Est. GFR should not</content>
<content>be used for medication dosing.</content>
<content></content> Glomerular filtration rate/1.73 sq M pre dicted among blacks [Volume Rate/Area] in Serum or Plasma by Creatinine-based formula (MDRD) 55 ml/min/1.73m2 [facility] ([facility]) Glomerular filtration rate/1.73 sq M.pre dicted [Volume Rate/Area] in Serum or Plasma by Creatinine-based formula (MDRD) 45 ml/min/1.73m2 [facility] ([facility] [facility] [facility]) ID Date Data Source [id number] 01/23/2020 11:00:00 AM EDT [facility] ([facility] [place]) Name Value Range Interpretation Code Description Data Daphney rce(s) Supporting Document(s) Troponin I.cardiac [Mass/volume] in Serum or Plasma Laboratory test result [facility] ([facility] [place]) Less than 0.05: Myocardial injury unlike ly Greater than or equal to 0.05: Highly suggestive of myocardial injury Correlation with rise and/or fall of serial troponins, clinical symptoms and ECG changes is necessary. ID Date Data Source [id number] 01/23/2020 12:02:00 PM EDT [facility] Name Value Range Interpretation Code Description Data Daphney rce(s) Supporting Document(s) TROPONIN I <0.05 ng/mL (<0.05) [facility] [place] Less than 0.05: Myocardial injury unlike lyGreater than or equal to 0.05: Highly suggestive of myocardial injuryCorrelation with rise and/or fall ofserial troponins, clinical symptomsand ECG changes is necessary. ID Date Data Source [id number] 01/23/2020 12:02:00 PM EDT [facility] Name Value Range Interpretation Code Description Data Daphney rce(s) Supporting Document(s) SODIUM 138 mmol/L (136-145) [facility] POTASSIUM 3.6 mmol/L (3.6-5.2) [facility] CHLORIDE 106 mmol/L (100-108) [facility] CO2 25 mmol/L (22-31) [facility] ANION GAP 7 mmol/L (7-16) [facility] UREA NITROGEN 20 mg/dL (7-24) [facility] CREATININE 1.56 mg/dL (0.80-1.30) H [facility] BUN/CREAT RATIO 12.8 RATIO (10.0-20.0) [facility] GLUCOSE 142 mg/dL (70-99) H [facility] CALCIUM 7.7 mg/dL (8.4-10.2) L [facility] GFR 45 ml/min/1.73m2 (>59) L [facility] GFR ( AMER) 55 ml/min/1.73m2 (>59) L [facility] GFR INTERPRETATION [facility] --NORMAL KIDNEY FUNCTION OR MILD DISEASE - GFR >OR= 60CHRONIC KIDNEY DISEASE - GFR 15 - 59RENAL FAILURE - GFR <15 Est. GFR calculation based on the MDRDstudy equation, which assumes a steadystate for creatinine. Est. GFR should notbe used for medication dosing. ID Date Data Source [id number] 01/23/2020 11:38:24 AM EDT [facility] [place] Name Value Range Interpretation Code Description Data Daphney rce(s) Supporting Document(s) WBC 14.4 10*3/uL (4.1-11.0) H [facility] RBC 3.93 10*6/uL (4.60-6.10) L [facility] HGB 12.4 g/dL (13.5-18.0) L [facility] HCT 37.8 % (41.0-53.0) L [facility] MCV 96.3 fL (80.0-95.0) H [facility] MCH 31.6 pg (27.0-32.0) [facility] MCHC 32.8 g/dL (32.0-36.0) [facility] RDW 14.4 % (10.5-14.5) [facility] PLT 161 10*3/uL (150-450) [facility] MPV 9.1 fL (7.1-10.7) [facility] ID Date Data Source [id number] 01/23/2020 02:30:56 AM EDT [facility] [place] Name Value Range Interpretation Code Description Data Daphney rce(s) Supporting Document(s) TROPONIN I <0.05 ng/mL (<0.05) [facility] [place] Less than 0.05: Myocardial injury unlike lyGreater than or equal to 0.05: Highly suggestive of myocardial injuryCorrelation with rise and/or fall ofserial troponins, clinical symptomsand ECG changes is necessary. ID Date Data Source [id number] 01/22/2020 07:55:00 PM EDT [facility] DATE OF EXAM: 01/22/2020EXAM: Chest 2V I NDICATION: CHEST PAIN TECHNIQUE: PA and lateral views of the chest were obtained. COMPARISON: None available at the time of this dictation. FINDINGS: Mediastinal contours within normal limits. Patient is status post midline sternotomy. Elevation of the right hemidiaphragm and right lower lobe atelectasis. No pleural effusion or pneumothorax. No acute osseous abnormality. IMPRESSION: No acute cardiopulmonary process. Right hemidiaphragm elevation. X5End of diagnostic report for accession: [id number] Interpreted: Marisel Davila MDTranscribed: 01/22/2020 07:52 PMSigned: 01/22/2020 07:55 PM Marisel Davila MD [facility] # [id number] [facility] # [id number] Name Value Range Interpretation Code Description Data Daphney rce(s) Supporting Document(s) ID Date Data Source [id number] 01/22/2020 06:58:33 PM EDT [facility] [place] Name Value Range Interpretation Code Description Data Daphney rce(s) Supporting Document(s) TROPONIN I <0.05 ng/mL (<0.05) [facility] [place] Less than 0.05: Myocardial injury unlike lyGreater than or equal to 0.05: Highly suggestive of myocardial injuryCorrelation with rise and/or fall ofserial troponins, clinical symptomsand ECG changes is necessary. ID Date Data Source [id number] 01/22/2020 06:58:33 PM EDT [facility] [place] Name Value Range Interpretation Code Description Data Daphney rce(s) Supporting Document(s) SODIUM 138 mmol/L (136-145) [facility] POTASSIUM 3.9 mmol/L (3.6-5.2) [facility] CHLORIDE 106 mmol/L (100-108) [facility] CO2 24 mmol/L (22-31) [facility] ANION GAP 8 mmol/L (7-16) [facility] UREA NITROGEN 16 mg/dL (7-24) [facility] CREATININE 1.60 mg/dL (0.80-1.30) H [facility] BUN/CREAT RATIO 10.0 RATIO (10.0-20.0) [facility] GLUCOSE 156 mg/dL (70-99) H [facility] CALCIUM 8.6 mg/dL (8.4-10.2) [facility] GFR 44 ml/min/1.73m2 (>59) L [facility] GFR ( AMER) 53 ml/min/1.73m2 (>59) L [facility] GFR INTERPRETATION [facility] [place] --NORMAL KIDNEY FUNCTION OR MILD DISEASE - GFR >OR= 60CHRONIC KIDNEY DISEASE - GFR 15 - 59RENAL FAILURE - GFR <15 Est. GFR calculation based on the MDRDstudy equation, which assumes a steadystate for creatinine. Est. GFR should notbe used for medication dosing. ID Date Data Source [id number] 01/22/2020 06:37:48 PM EDT [facility] Name Value Range Interpretation Code Description Data Daphney rce(s) Supporting Document(s) WBC 16.0 10*3/uL (4.1-11.0) H [facility] RBC 4.67 10*6/uL (4.60-6.10) [facility] HGB 14.7 g/dL (13.5-18.0) [facility] HCT 45.2 % (41.0-53.0) [facility] MCV 96.7 fL (80.0-95.0) H [facility] MCH 31.4 pg (27.0-32.0) [facility] MCHC 32.5 g/dL (32.0-36.0) [facility] RDW 14.5 % (10.5-14.5) [facility] PLT 163 10*3/uL (150-450) [facility] MPV 8.2 fL (7.1-10.7) [facility] ID Date Data Source [id number] 01/23/2020 07:46:00 PM EDT [facility] [place], [address] [address] NAME: JOSE VILLATORODATE OF : 1955REPORT: CONSULTATIONPATIENT NUMBER: [id number] STATUS: IPMEDICAL RECORD NUMBER: [id number]: [facility] HOSPITALIST CONSULTATIONDATE OF CONSULTATION: 01/22/2020CONSULT REQUESTED BY: PETER Samson with ALLIE Moss FOR CONSULTATION: Chest discomfort.HISTORY OF PRESENT ILLNESS: Jose Villatoro is a 64-year-old male who wasdischarged from the Urology Service yesterday after right-sided ureteralstent placement done on 01/20/2020. Apparently, he was sent home with oralantibiotic Cipro, later found it was not sensitive to his bacteria thatgrew. Today, he complains of fever, chills, body aches, and loss ofappetite. Then he was called and directly admitted to the Urology Service.During evaluation, he mentioned that he experienced some chest discomfortearlier. He has extensive cardiac history. With that in mind, hospitalistconsult requested.I immediately went to see the patient. He is alert, awake, well-oriented.He denies any significant chest pain at this time. However, he mentionedthat there was some discomfort going on since yesterday. He mentioned itwas there for quite sometime. It was not aggravated when he was walkingand no short of breath. He mentioned that he felt some nausea and he hasloss of appetite with his chills, body ache, and fever. He told me hefeels this is probably nothing significant cardiac-dutta. However, his asked him to tell the doctors, that is why he mentioned to the Urology team. He is not in any acute respiratory distress at this time. He denies any short of breath or palpitation.PAST MEDICAL HISTORY: 1. Recent ureteral stent placement on the right side on 01/20/2020.2. History of coronary artery disease, status post CABG.3. Hypertension.4. Morbid obesity.5. History of pericardial effusion.6. History of pulmonary emboli in the past.7. Diabetes mellitus.8. History of ventral hernia.PAST SURGICAL HISTORY: CABG. He had also gastric bypass surgery in the past.ALLERGIES: List includes penicillin which caused a rash in the past.MEDICATIONS:Home Medicationsallopurinol 300 mg Tablet 1 tablet oral dailyMedication Status: activeamitriptyline 25 mg Tablet 1 tablet oral daily at bedtime PRNPRN Reason: insomniaMedication Status: activeaspirin (Aspir-81) 81 mg tablet,delayed release (DR/EC) 1 tablet oral dailyMedication Status: activeatorvastatin 80 mg Tablet 1 tablet oral daily at bedtimeMedication Status: activecalcium citrate-vitamin D3 (Calcium Citrate + D) 315 mg calcium-200 unitTablet 1 tablet oral twice adayMedication Status: activeclotrimazole-betamethasone 1 %-0.05 % Cream 1 application topical twice adayExtended Instructions: APPLY TOPICALLY TO THE AFFECTED AREA ON STOMACHTWICE DAILY ASNEEDEDMedication Status: activecoenzyme Q10 (CoQ-10) 200 Capsule ? oral twice a day every morningMedication Status: activedocusate sodium (Colace) 100 mg Capsule 1 capsule oral dailyMedication Status: activeDULoxetine 60 mg capsule,delayed release(DR/EC) 1 capsule oral dailyMedication Status: activemetoprolol tartrate 25 mg Tablet 1 tablet oral twice a dayMedication Status: activenitroglycerin 0.4 mg Tablet, Sublingual 1 tablet sublingual q5min PRNPRN Reason: chest painExtended Instructions: DISSOLVE ONE TABLET UNDER THE TONGUE EVERY 5 MINUTESAS NEEDED FORCHEST PAIN. DO NOT EXCEED A TOTAL OF 3 DOSES IN 15 MINUTESMedication Status: activenystatin 100,000 unit/gram Powder 1 application topical twice a dayMedication Status: activeoxybutynin chloride 5 mg Tablet 1 tablet oral three times a day PRNPRN Reason: bladder spasmsMedication Status: activepregabalin (Lyrica) 150 mg Capsule 1 capsule oral twice a dayMedication Status: activetamsuLOSIN 0.4 mg Capsule 1 capsule oral dailyExtended Instructions: TAKE 1 CAPSULE BY MOUTH ONCE DAILY 30 MINUTES AFTERTHE SAME MEALEACH DAYMedication Status: activevitamin B12- folic acid 500 mcg-1 mg Tablet 1 tablet oral dailyMedication Status: activesildenafil (Viagra) 50 mg Tablet 1 tablet oral daily PRNPRN Reason: erectile dysfunctionMedication Status: activeoxyCODONE 5 mg Tablet 1 tablet oral every four hours PRNPRN Reason: painExtended Instructions: istop [id number] MaxDailyDose- 6Medication Status: activeomeprazole 40 mg capsule,delayed release(DR/EC) 1 capsule oral dailyMedication Status: activeFAMILY HISTORY: Reviewed with the patient and not contributory to hispresentation.SOCIAL HISTORY: History of smoking in the past. He denies any alcohol orillicit drug use.REVIEW OF SYSTEMS: All systems reviewed and negative other than asmentioned in history of present illness.PHYSICAL EXAMINATION:Vital signs: His blood pressure was documented as 129/70 with a pulse of99, temperature 37.6, respirat ions 20, pulse oximetry 97 percent on roomair.Head: Atraumatic, normocephalic.Neck: Supple, no restriction of movement.Eyes: EOM intact. Sclerae and conjunctivae clear.ENT: No erythema or rash noted.Chest: Bilateral air entry noted. No wheezing or rhonchi.CVS: S1, S2 positive.Abdomen: Soft, obese, nontender. Bowel sounds present.Extremities: No pedal edema noted.Skin: Warm and dry with good turgor.Neuro: He is alert, awake, oriented. No new focal neurologic deficitnoted at this point.LABORATORY DATA: Today lab ordered and pending. Labs from yesterday,sodium 140, potassium 4, chloride 110, bicarb 26, BUN 22, creatinine 1.36.WBC 10.5, hemoglobin 12.9, hematocrit 39, and platelet count 146. Hisurine culture from 01/20/2020 apparently grew Staphylococcuscoagulase-negative which is Cipro resistant, Levaquin resistant, linezolidsensitive, vanco sensitive.ASSESSMENT AND PLAN: Jose Villatoro is a 64-year-old obese male who wasadmitted to the Urology Service. Apparently, he had a right-sided ureteralstent placement on 01/20/2020 and was discharged from the Urology Serviceyesterday with Cipro to home. However, his urine culture grew bacteriawhich is resistant to Cipro. He started having symptoms today with fever,chills, body ache, and loss of appetite at home and he was brought back anddirect admission to the Urology Service. Apparently, he mentioned that heexperienced some chest discomfort and then hospitalist team was called. Atthis point, he looks comfortable. Denies any significant chest pain. Noshort of breath. No palpitation. He has significant cardiac historyincluding coronary artery disease and CABG in the past. He is on aspirin, which we will continue. I requested for a 12-lead EKG, which is ordered, however, not done yet. Troponin ordered. Telemetry ordered. I also ordered a 2-D echocardiogram, which will be done tomorrow. His troponin will be cycled today. The patient also told me he feels like this is probably not heart related but he had some discomfort there earlier. I will also request a chest x-ray. Will request behavior interventionist covering hospitalist to follow overnight work up.Thank you for this consult. Hospitalist team will follow with you.DICTATED BY: JOSSELIN Hayictated: 01/22/2020 18:00DT: 01/22/2020 18:09Job #: [id number]: Quinton Pride MDNOTE: [facility] computer generated reports are notconfirmed or authenticated unless they are signed by the providerElectronically Authenticated and Edited by:ADELINA ALCARAZ MD On 01/23/2020 07:46 PM EDT Name Value Range Interpretation Code Description Data Daphney rce(s) Supporting Document(s) ID Date Data Source [id number] 01/22/2020 05:32:39 PM EDT [facility] Name Value Range Interpretation Code Description Data Daphney rce(s) Supporting Document(s) MUSE EKG PDF encoded [facility] OGPTIu7cRlQEFnNwc1AwTnQdEOJsZG0epll5Y9D6vLUjF9EihSAgg0pzZ8LvT5VxQNEkPBINRT1QlLSk jb2 [file] p9XS5YQ8+o9L5LnEUw2nb8H/T/0td+NaXSP/4d5++Nguyễn+TxH2nbn4g9m1Kl9/wxzTmS4lyDK+t3zXkY+ A7+G0m09Qz/XIp6X07TBX1c+estF/h59U2x1iQoe+688tK+0J6j7HrpGB3Y/nh81jftw+SSn/6f2I9j9 Owltbac9pe8Es8K/rehbX2w3o/DKSbn/ytGuurk546 pZRob75v5+WtPy9v+/BorGnL1qmZyDpX7mws6T2+4/m2byzH+BqXcm0qs0k2L8fhY1akhU2zs4xFs/Ld sl/dPGG/LaXgQacwHqxNu3X+G/VN/eqlwXfwUV/WfgsfA3bznqz52AvBTH2lqV9h0V0SgG7G+omiQ8A6 Scut3GbU0y4NAa7+XWm/hpz9Xv8o7atvHqkEwayK+b qnL4bp1xMX+1V9G+ucqp7Xn5l818R+PZh/zwRfwO/95qg4x8MVgzDpHZ+RD/RL6NktEXugw+pXLw1+IP 6inAo9n7k++Wx36EoFZ355mUC8xOL5VwZotv66p1gHQc/qEZMaqSiYv6Cj+2S8nv9KU+aMXlf1IX6j3x R1Vz9nq9P084ziRzD/amjCp9alJ/4oveDnbI11VUY/ cpr4m8lYbRd349pw0IzH+9KB1l73eyzQbqBLrjEBN340kUrZ2Twsg4W9Z6Cjgaz9DeSxDqQyBKXfiJav VudjudE3a6Z5iD5CMC/A51ietWs7DjSd8iu23i0db+2xutr+tPinw5m7kBdbK+hv7Ni3AIgqg2uEvVCg bv9wdYjQt+M7A+BAuyMcV431Uyy0+ld1gI/fV3s/VF XAF/VyIxfk66Wq1nI1+qcC8KmwPcmyd2tkHlK045hwp28ih7r5FvD7S5X6dQ+3napWh5XtZA4YuELj8T Bx46GZwc2X7/pN85738e1ko3bR5bh2Rgo7yoG2+Bv8AD/AP+Urmf86YCUxm5W7YuTV9+j0rB08mhl+jv o6+m/cP917P508JbK7Djn81giY2O79tRk/NJZcAD5f U747Kgkr7d482jm3z+BzJ7tReq+RIBYtb8y2GffSpe8TcB1c8dm5ls/rhew7P/5h7fk5HrTw9lxrpRji ohcu6l3I4Tr90g6gz+3Atcepx4fkc9inAf+uikC2W587xME/9niqWSm6mAs5x+X1xq1RFbnQJar4tE5P A/UNjM+eT1WebP+m6ryi7Vtv/hWLB75uY5xjijn1jx WBRq/70rO9Y2+v9/L3bI6J07VV/KL9cD5HF+q5OrhGadUK1/cY+Tgy6zn6MXk+qO+HdpgElm7Q5fe3/M Y91F/94p7p/2X2daPf8A/SAr7g+AT4za7mp/xli7hn+av/2rO1er3jj/qix65e9fa+L73B3+AH+IF8Ds l5fj3uWu985s7nD+lg43eC1VkZCx/vuOK2Vq+9J/fL WhaX6yc7+57b/3BKrrCz5p41Rc/W7/jHum1c79w1Ny5cY/gH/GM1NHBh0BO+ZVW15PJcDc6zo+45/bKN 0SH5psKel81U9M+lb/iDj5PISfFwelBb/GvfqHdvfVfmf+tb6QA/wD+jv+T414p23LeZu7V/u40M2q59 q5LDtV+JnMcwb1r5qWTU+7Mzer9QhzvgGcu82k3a7E cv/twMYS8XHuzUBtSB7e/2rufiqm9t+nyZ1wAj214j845/pg8F2n1F4mG3Do6AqEdsJYoE34A39C55pD O2ih27D4y+gI/xynp/wdJ+TUdNL8i/yrqn/tupxMe08213Iw9ifQoCS4SFcvYx5Uq8N/cIjzXl3B/wez 4y7/pUFH9e2U1U4qyoIV/AX+Gt9HHpE95f4BLN87Kn J6764cYuRn+Gp56KQRP/4Pd+t+1u86S5tY/y11cS9jZ+4PkF/gK/228G2cmPmzNjXjphN1C3U5CQi/JK W6cD/E6lq8Hg8f3gnci4nfQ/RrhnFRv4Jz0Gq0Ub4Lc68f4Vko5p1djQLz3/YXC0pj77Py1+d2P3GOl+ e7Ev3QajNkUTjvs0A2P7nxP/Eixn3BE46G4ak+z0es SYhd48jy+e4Rq1kA5rR2ey3om5Uposifa+B/U9qO/p+vro9a+n/eq2PR/ebn5C7Zo67uL7r8/eL/Ox8L win+6/Prr/+iBdHRfKh1X/wQ/wA/zzjcM+2t7us/VJT/3q6oGe+tVLWz/T+hUEgd893yljq/uvY3/QsT /os8+rQh95L820i31rt/SP3pl8bN2GI6D/wG/7s+N8 u+L7qCafGd5dA3r8DXu/6y+Xtk+78K8kT4/f8P+PojEH3xuPyMJ/HmPx7xYTySfcMhk/zlxCqqzk/tuc Fwnr+PyPwmOTMSsH1LFa8/kPx21y8M59otFxyQ2M8Xo/VfrA+QZ2QmjZ77K+G9/zTkFG7Uvs2BOs8leR q8w5Yy9S9747nd2t+CufHa/lOI1EhubqKc8Kg7U+6j h2QzEmVD+qC19pkW1hrWji3XUyrcinwA/iIEU4XaM9i6vrHD1FgeAH+VSged773fbdx/2Nxdn0uFD/5Q vfb/lXeXy+uH2yx2F2A8/+goL3vx1fnn2yF/8qsQ6//tU7/n2/4laO0qIudgk/knwG6/mCW8+PvOLb83 z75mVe/lVe2/3mi42sm/X/163jkbzir+rYXmyJX//q O7YXT+KIv3LH+3X0Z+94Bvf+H3n6V/jgsN9VMknAztC4gEHQjmttk+if0916M+Y21j1UuPuQXneN/yOs AlpGR005/LIja7QULl0we5GdkgnbGJ7TL/hXDv/Y0Q108fy6N22cW/+dsy55z3+G52Nh26/bJU5h56U9 LC2Wr5CuRp6/tjWm0lW+swO/2fx8iuGhmR87/dej13 8d+QSuqc7J5675diCR6tKFos489M17nv+On54f+ZGBY+jx/z0db+ZnfvNKP/PDVfz0/hQ/vT/FT+Oxfn p/ymVm//Btuf1QURk2ijF49ebw34jlLd044J3726Bt8jT0337FK685xo7Q5XP1Vj6QjqX1ohOZijztP/ anV4yd0EpgRHfoR7173K8y5EQagqiT+IR0wd1S911+ XG8tcV9lW35b5PG66FNZ/OodQ7+g7/rcqxnDM1fOcq0Nzju4/bYBv2ol3umdZehwUtu4+JfIxmp5wq+y n35XCiYWu7R/zsG270yL67pYWrcSOc1RN5Ev6B/o23/eWB/cWB/cWB/q7tCx2Da19p9We/Z66E7/6h1/ /u1O/yr12D+4Ed++Z/+U1gf0te72OESwr0Qh1/7QPX t74bLvgjgcu1g4+Oici432EdOo71+UEyg/bZ22h4dwnGIm7Tt2Zf3x9UX9dn4Uea/39+p33078U7rm8M ehvsugN+z7gO7W5B6j1E/oA+ejvqv/v3u1/3rr76s61ThdY25/jng7eF32wv9A46b5k8zPOwbz56zc0A v/u63/J7bii4uX9/2yZ3r0Ipy1V/ug0m7d2ie9LrQG tw/oBXr0Z/hXG/7Vhn+1He/Tt226R21z8/063i/8qw3/avvG8/N30XoY5jK92DcL3623glB5c69r6z87 fje+343vF/7Vhn+1N+q7Ud+N+d323959p/F+D10laknj904H0yqvd/bu9d+d/cI55tTmJ709IcnTl9Ji jITRbLDXutO6U+xx5Qh4f5r5s3T93Ek50N81B8p1R3 dI66DxvIzO5+3TeM7G+uA+GK8O/hnOmN26X0/vc0II62tKP/+jg//RMZzvuK/7yIc44Sx3tv/YiG/fp+ G10oj5vQT+Fdg/DXHrTpBGdtLikW9nl/kFrns6HRX+KhB/NvLzy2rCN3vTpV3Xtm/H6Pl+jJ7vR+JXM4 87fiMy/oqLvyx6egEZOZihU8f4xPzKnjMJ5/2Q7s+B +EhABe1C+Bfmh08au71oJNhPp8H0x0iB7hvgu+SR37m1vI9o7tZlt7FMxHNh3Kb8B/oJ/YK+481CG9+I wq/nmMEdPx1VkDMA12NwAR9VSg6B1Y0Bnk6kGb2twVd/Syyvp2OCt4+/NDK+/eIGkeuDea+6ZxuKFAi4 ngRN5k7YTwxH5SFOuGxpvl2+xz+42sDmg5YI2ul/zh eyjnN/+EnM+IEqejrIlpw0e7+097soKf1n1M/d+Uhc/zb72uQ8zpFzr/V+nEj/CttvciieyK9W/KtY7W /B1alWARf70/dGG4O3qeVy5mrZzf93pR3gwK2zPs/PYT0+i9Y7qd8NT6kabCGStx1lvRT/O9oTr6Ss1V vKMdy3/imvt23yHWl+PolWj2Y1lJmJ/fmWH0b6PwH9 jM/e6wuB+PbA+mBgfTC8/0fhC+qxhK2323X67Gj+Mrzj+cM3zg+tL7Ww5Pl+CagOA4Zf2Wg8EQyaP2W3 /Dc39zqW2Zsg7ChmryTBq85be/SV3Wlir5dovIZIgE8cexlztI31e+w33iEif56/du+ta727dGCSN++O 6Pl+oOB6ENBgL8D4Q49i9WN6j6vgLVT8S9DYwL2Sny PeoXfoG9+P1K98Ne4qXsWgYRiWron4iAcgsbTqDW/Ob4xKIR/qO4Z+9dDaqAVfx1fHg/TCVb44v1W5y4 PiV9n+iV+9Y+gD+s2dZAqnqX6/7/7jtsV2d3e3lzYvUfhkEJ7rcT8+/fZU/NW8x/P7r53R+UMPdF6ykK +b9fJpBv8RarFEV/Qb+vYnz+jx6oyA/kDf+MaRXt8/ 0t/vkf5+j7T/fRBshhxiLHV5C9RmJD6J6ZZECiBF8Orgd3p59AR49EM29BE55TG69Fe/Wa5B9Jz9J2+i esRvspD8dlO7K+48tYG52uC+/QC/OsCvjqK+nyvl6bnbx9xbttIhLPiT6iA+nW88Ssi1Y+S/UeVaI7ea 9IrzJ/QT+wR1lf1nksI9TrHbuu5kcc3jwk1r/9WZge cPlN/z/KHzxotd49HHEiAS3B4yKST8y1AbwqP28qwA3atbw67kAOqru3m5/Vvid85fg3WslgnrsCAeM/ 08Unt4RyqRx7axm/t8sc6aqYN9F+RLk0yr8/0px3o+rBWvGoP8Xgnia2rkPF5mPQ2dnI00gaWH+7WAHt +vob7e/qNMsmCvEsc73/ePK/QKffuTB/sHD/YPHuwf EP6Dn08U+mL/4MH+jZZ4ehK/6sC/Ooi/Ooi/Ooi/Ooi/Orv3O5+C8KrtuA9xn8E2sld3Y6h9/tBT/lUe G/NLrk82IfrsDQ/6V+8Y+oA+7QjNe0uqlUEuW6dxMO/eVUck3AC/9cZ68UJ+wVSho4Pl/RM9/n2s3Gj3 2to4t1B12Ii2u9e/Hwth7buTss32FT5D69Uq5ms6wp 1Zb1RxtcViZk28h+f75/R8/5wF/YK+8+ec0/b7xmy177lBG28sP+/4gknYwkk96gAb1+C+Xd8/d6MB2Z 9ZJ3OzJ+Er60/Q7yY/4Zs1/fa64heK/AkGYdGyaLGvKj/ha8M/wfls/bb/gX6BjeZvQXgO0roQ7kByJY N0PtfH9LU7p5+g30LsT/jdEA6MKqyG31cxGjEcXPKf VQG/k3oDI7nus8ttwebIB0CcKRVSV5oWFYKj/D7xTE/nE3338ZXzD4WaUoZ88rrCxn76I6f8fZijCVvH kQ5qo9ASniLS16e6wFo9CDYcQ+whJn8C+3DF7L3wCSm/4RsJ/kUBMH1FLjcXpp8j7MeMmxQvKrly1tM+ jP66YaIsRivej5Q/ig5Ge6JkmVpPdxKhLrofiXVipN oUJgFA8XxQy3Lg8iGHFzuJDsiRct3mG1ZLJCxqaH3XbTYXIFVMIkcZFfwMqS5v0R2EH2V4MaLrkzTBKZ 7ltLR7/hPQewGQ/FQ9lSYboUGMgJL234gVh5T4d3N7RfKc1HICH3Tn8ndBrstWz6vo4/pCHXh39t/7P8 G/ie9P+FgStoEOzR0xyMM/ZmCiF9LEk6FYGChYVBNi xOXqN3eiG3ja+L3VVfNwMz+HZQrscmtjST0fYvJ4El5W2jS3O6oWS87flBIUYQRtucYMC+S2S3OCkM9/ eEjmVMzBgcaQHgqt2W0FvdoNMhVZ0byXuxJ74s20ro5ZOFtc2zwS+4cBG9Q8fo7qi9EFAsYvojGIX9vJ vTuzBR8P9b5B0VaM0fVXp93/AT0++C1gp+Mva/igQI sG2fRyygxsOVVM8mdgdxYH/JVenmtLkXH7WUyLH8kUySq+Fw7/C4f/BQTn/wT8Fw7/B0mczA1E/8JBSt ryKIwnWLWggw45AxB2/hPhFtt2HS9OZ9ErqmE2ymAx374yDEbXU4KsLsEAiCIvvXLV0atXiI0z5TtirZ 3wqQ/nriaKeCxNEuJvu19MfEHCDpWOdoivkcESjHX5 WMLAM5Ez/beYx2OtzQVrQGagf1OgEoQxF0B5ZbzvDX3MSEQvbG6kqE+N5CMtOn2nwqh3KZgtxn6a5KIN /cpM/cpU/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/AxkxjSHM1Lj6zkSvaR5MaaRepZclS0xobwP+rpDja8kjgngHoJAsZ3y9Unn+0+ghW0w [file] [id number] ID Date Data Source [id number] 01/21/2020 11:10:00 AM EDT [facility] [employer] Name Value Range Interpretation Code Description Data Daphney rce(s) Supporting Document(s) Potassium 4.0 mmol/L 3.6-5.2 [facility] ([facility] [employer]) Sodium [Moles/volume] in Serum or Plasma 142 mmol/L 136-145 [facility] ([facility] [employer] [employer]) Chloride [Moles/volume] in Serum or Plasma 110 mmol/L 100-108 [facility] ([facility] [employer] [facility]) Carbon dioxide, total [Moles/volume] in Serum or Plasma 26 mmol/L 22 -31 [facility] ([facility] [employer] [facility]) Anion gap 3 in Serum or Plasma 6 mmol/L 7-16 [facility] ([facility] [employer] [facility]) Urea nitrogen/Creatinine [Mass Ratio] in Serum or Plasma 16.2 RATIO 10.0-20.0 [facility] ([facility] [employer] [facility]) Creatinine [Mass/volume] in Serum or Plasma 1.36 mg/dL 0.80-1.30 [facility] ([facility] [employer] [facility]) Urea nitrogen [Mass/volume] in Serum or Plasma 22 mg/dL 7-24 [facility] ([facility] [employer] [facility]) Calcium [Mass/volume] in Serum or Plasma 7.6 mg/dL 8.4-10.2 [facility] ([facility] [employer] [facility]) Glomerular filtration rate/1.73 sq M.pre dicted [Volume Rate/Area] in Serum or Plasma by Creatinine-based formula (MDRD) 53 ml/min/1.73m2 [facility] ([facility] [employer] [facility]) Glucose [Mass/volume] in Serum or Plasma 127 mg/dL 70-99 [facility] ([facility] [employer] [facility]) Glomerular filtration rate/1.73 sq M pre dicted among blacks [Volume Rate/Area] in Serum or Plasma by Creatinine-based formula (MDRD) Laboratory test result [facility] ([facility] [employer] [facility]) GFR Interpretation Laboratory test result [facility] ([facility] [employer] [facility]) <content></content>
<content> </con tent>
<content>NORMAL KIDNEY FUNCTION</content>
<content> OR MILD DISEASE - GFR >OR= 60</content>
<content>CHRONIC KIDNEY DISEASE - GFR 15 - 59</content>
<content>RENAL FAILURE - GFR <15</content>
<content> </content>< br/><content>Est. GFR calculation based on the MDRD</content>
<content>study equation, which assumes a steady</content>
<content>state for creatinine. Est. GFR should not</content>
<content>be used for medication dosing.</content>
<content></content> ID Date Data Source [id number] 01/21/2020 11:10:00 AM EDT [facility] ([facility] [employer] [facility]) Name Value Range Interpretation Code Description Data Daphney rce(s) Supporting Document(s) Leukocytes [#/volume] in Blood by Automated count 10.5 10*3/uL 4.1-11 .0 [facility] ([facility] [employer] [facility]) Erythrocytes [#/volume] in Blood by Automated count 4.04 10*6/uL 4.60 -6.10 [facility] ([facility] [employer]) Hemoglobin [Mass/volume] in Blood 12.9 g/dL 13.5-18.0 [facility] ([facility] [employer] [facility]) Hematocrit [Volume Fraction] of Blood by Automated count 39.0 % 4 1.0-53.0 [facility] ([facility] [employer]) Erythrocyte mean corpuscular volume [Entitic volume] by Auto mated count 96.6 fL 80.0-95.0 [facility] Erythrocyte mean corpuscular hemoglobin concentration [Mass/volume] by Automated count 33.0 g/dL 32.0-36.0 [facility] ([facility]) Erythrocyte distribution width [Ratio] by Automated count 14.3 % 10.5-14.5 [facility] ([facility] [employer] [facility]) Erythrocyte mean corpuscular hemoglobin [Entitic mass] by Automated count 31.9 pg 27.0-32.0 [facility] ([facility]) Platelets [#/volume] in Blood by Automated count 146 10*3/uL 150-450 [facility] ([facility] [employer] [facility]) Platelet mean volume [Entitic volume] in Blood by Automated count 8.9 fL 7.1-10.7 [facility] ([facility]) ID Date Data Source [id number] 01/21/2020 11:59:34 AM EDT [facility] Name Value Range Interpretation Code Description Data Daphney rce(s) Supporting Document(s) SODIUM 142 mmol/L (136-145) [facility] POTASSIUM 4.0 mmol/L (3.6-5.2) [facility] CHLORIDE 110 mmol/L (100-108) H [facility] CO2 26 mmol/L (22-31) [facility] ANION GAP 6 mmol/L (7-16) L [facility] UREA NITROGEN 22 mg/dL (7-24) [facility] CREATININE 1.36 mg/dL (0.80-1.30) H [facility] BUN/CREAT RATIO 16.2 RATIO (10.0-20.0) [facility] GLUCOSE 127 mg/dL (70-99) H [facility] CALCIUM 7.6 mg/dL (8.4-10.2) L [facility] GFR 53 ml/min/1.73m2 (>59) L [facility] GFR ([facility]) >60 ml/min/1.73m2 (>59) [facility] GFR INTERPRETATION [facility] --NORMAL KIDNEY FUNCTION OR MILD DISEASE - GFR >OR= 60CHRONIC KIDNEY DISEASE - GFR 15 - 59RENAL FAILURE - GFR <15 Est. GFR calculation based on the MDRDstudy equation, which assumes a steadystate for creatinine. Est. GFR should notbe used for medication dosing. ID Date Data Source [id number] 01/21/2020 11:31:38 AM EDT [facility] Name Value Range Interpretation Code Description Data Daphney rce(s) Supporting Document(s) WBC 10.5 10*3/uL (4.1-11.0) [facility] RBC 4.04 10*6/uL (4.60-6.10) L [facility] HGB 12.9 g/dL (13.5-18.0) L [facility] HCT 39.0 % (41.0-53.0) L [facility] MCV 96.6 fL (80.0-95.0) H [facility] MCH 31.9 pg (27.0-32.0) [facility] MCHC 33.0 g/dL (32.0-36.0) [facility] RDW 14.3 % (10.5-14.5) [facility] PLT 146 10*3/uL (150-450) L [facility] MPV 8.9 fL (7.1-10.7) [facility] ID Date Data Source [id number] 01/21/2020 05:03:00 PM EDT [facility] DATE OF EXAM: 01/20/2020RETROGRADE PYELO GRAM RIGHT CLINICAL STATEMENT: Retrograde pyelogram. TECHNIQUE: Three limited, suboptimal spot fluoroscopic images of the right hemiabdomen and hemipelvis were obtained intraoperatively, during retrograde pyelogram. COMPARISON: CT abdomen and pelvis dated 01/20/2020. IMPRESSION: Contrast opacifies the right ureter and renal collecting system. Fluoroscopy was provided for 6.5 seconds. Correlate with intraoperative findings. Follow-up routine postoperative radiographs may be obtained, as clinically indicated. D7End of diagnostic report for accession: [id number] Interpreted: Juvenal Elmore MDTranscribed: 01/21/2020 05:02 PMSigned: 01/21/2020 05:03 PM Juvenal Elmore MD -------- [facility] ACC # [id number] BILL # [id number] Name Value Range Interpretation Code Description Data Daphney rce(s) Supporting Document(s) ID Date Data Source [id number] 01/21/2020 06:59:00 AM EDT [facility] [place], [place] [address] NAME: JOSE VILLATORODATE OF : 1955REPORT: OPERATIONPATIENT NUMBER: [id number] STATUS: OF ADMISSION: 01/20/2020DATE OF DISCHARGE:ROOM:DATE OF PROCEDURE: 01/20/2020PREOPERATIVE DIAGNOSIS: Right ureteral stone.POSTOPERATIVE DIAGNOSIS: Right ureteral stone.PROCEDURES PERFORMED:1. Rigid cystourethroscopy with right stent placement.2. Professional interpretation of radiologic images.SURGEON: FRAN Aguilera HISTORY AND REASON FOR PROCEDURE: This is a very [id number] gentleman with two separate right mid ureteral calculi who alsohad nitrate positive urine noted in the office today. He presents now forthe above-noted procedure.DESCRIPTION OF PROCEDURE: Patient was identified in the preoperative area.The risks and benefits of the procedure were explained in detail to thepatient. Consent was obtained. He was brought back to the operating roomand was placed in supine position. Sequential compression devices wereplaced on both lower extremities and he was administered prophylacticantibiotic. He was then placed under IV sedation and then carefully indorsal lithotomy position. His penis and scrotum were prepped and drapedin standard sterile fashion. A 22-Malagasy 30-degree rigid cystoscope wasinserted under direct vision in the patient's urethra. Rigid ureteroscopydemonstrated no masses, lesions or strictures. Pancystoscopy demonstratedno diverticula, calculi or masses. Both ureteral orifices were orthotopic.The right ureteral orifice was cannulated with a 0.35 sensor wire, whichwas advanced under fluoroscopy into the right renal pelvis. A 5-Frenchopen ureteral catheter was passed over this. A right retrograde pyelogramwas performed. The wire was then placed and the ureteral catheter wasremoved and a 6-Malagasy 26 cm double-J stent was placed in the rightcollecting system. Upon placement of the stent, a si gnificant amount ofpurulent material was expressed from the right ureteral orifice to thestent. Patient's bladder was then emptied and the cystoscope was removedand he was taken out of dorsal lithotomy position and awoken from IVsedation and taken to the PACU in excellent condition.PROFESSIONAL INTERPRETATION OF RADIOLOGIC IMAGES: Multiple intraoperativefluoroscopic images were taken of the right asuncion-abdomen. Initial imagingdemonstrated no radiopaque calculi overlying the right renal shadow orcourse of the proximal right ureter. Followup imaging demonstrates a rightretrograde pyelogram with mild right hydronephrosis without filling defectsor extravasation. Final imaging demonstrates proximal curl of the double-Jstent overlying the right renal pelvis.DRAINS: Right 6-Malagasy 26-cm double-J stent with no string attached.COMPLICATIONS: None.ESTIMATED BLOOD LOSS: Minimal.SPECIMENS: None.DICTATED BY: Raji Wynne MDDictated: 01/20/2020 19:36DT: 01/20/2020 19:41Job #: [id number]: [facility] computer generated reports are not confirmed orauthenticated unless they are signed by the providerElectronically Authenticated by:RAJI WYNNE MD On 01/21/2020 06:59 AM EDT Name Value Range Interpretation Code Description Data Daphney rce(s) Supporting Document(s) ID Date Data Source [id number] 01/20/2020 01:20:00 PM EDT MEDENT (Assoc iated Cloth Grader Supervisor [facility]) Name Value Range Interpretation Code Description Data Daphney rce(s) Supporting Document(s) Leukocytes [#/volume] in Blood by Automated count 15.5 10*3/uL 4.1-11 .0 MEDENT (Associated Cl[employer] Gr[employer] Supervisor [facility]) Hemoglobin [Mass/volume] in Blood 14.3 g/dL 13.5-18.0 MEDENT (Associated Cl[employer] Grader Supervisor [facility]) Erythrocytes [#/volume] in Blood by Automated count 4.47 10*6/uL 4.60 -6.10 MEDENT (Associated Cl[employer] Grader Supervisor [facility]) Erythrocyte mean corpuscular volume [Entitic volume] by Auto mated count 97.1 fL 80.0-95.0 MEDENT ([facility]) Hematocrit [Volume Fraction] of Blood by Automated count 43.4 % 4 1.0-53.0 MEDENT (Associated Cl[employer] Gr[employer] Supervisor [facility]) Erythrocyte mean corpuscular hemoglobin [Entitic mass] by Automated count 32.0 pg 27.0-32.0 MEDENT ([facility]) Platelets [#/volume] in Blood by Automated count 172 10*3/uL 150-450 MEDENT (Associated Cl[employer] Gr[employer] Supervisor [facility]) Erythrocyte distribution width [Ratio] by Automated count 14.5 % 10.5-14.5 MEDENT (Associated Cl[employer] Gr[employer] Supervisor [facility]) Erythrocyte mean corpuscular hemoglobin concentration [Mass/volume] by Automated count 32.9 g/dL 32.0-36.0 MEDENT (Associated Medica l Professionals [facility]) Platelet mean volume [Entitic volume] in Blood by Automated count 9.3 fL 7.1-10.7 MEDENT (Associated Medical Profe ssionals [facility]) ID Date Data Source [id number] 01/20/2020 01:20:00 PM EDT MEDENT (Assoc iated Cloth Gr[employer] Supervisor [facility]) Name Value Range Interpretation Code Description Data Daphney rce(s) Supporting Document(s) Sodium [Moles/volume] in Serum or Plasma 142 mmol/L 136-145 MEDENT (Associated Cl[employer] Gr[employer] Supervisor [facility]) Carbon dioxide, total [Moles/volume] in Serum or Plasma 26 mmol/L 22 -31 MEDENT (Associated Cl[employer] Gr[employer] Supervisor [facility]) Potassium 4.7 mmol/L 3.6-5.2 MEDENT (Associ ated Cloth Grader Supervisor [facility]) Chloride [Moles/volume] in Serum or Plasma 108 mmol/L 100-108 MEDENT (Associated Cl[employer] Gr[employer] Supervisor [facility]) Creatinine [Mass/volume] in Serum or Plasma 1.50 mg/dL 0.80-1.30 MEDENT (Associated Cl[employer] Gr[employer] Supervisor [facility]) Anion gap 3 in Serum or Plasma 8 mmol/L 7-16 MEDENT (Associated Cl[employer] Gr[employer] Supervisor [facility]) Urea nitrogen [Mass/volume] in Serum or Plasma 25 mg/dL 7-24 MEDENT (Associated Cl[employer] Gr[employer] Supervisor [facility]) Urea nitrogen/Creatinine [Mass Ratio] in Serum or Plasma 16.7 RATIO 10.0-20.0 MEDENT (Associated Cl[employer] Gr[employer] Supervisor [facility]) Glucose [Mass/volume] in Serum or Plasma 147 mg/dL 70-99 MEDENT (Associated Cl[employer] Gr[employer] Supervisor [facility]) Glomerular filtration rate/1.73 sq M pre dicted among blacks [Volume Rate/Area] in Serum or Plasma by Creatinine-based formula (MDRD) 57 ml/min/1.73m2 MEDENT (Associated Cl[employer] Gr[employer] Supervisor [facility]) Glomerular filtration rate/1.73 sq M.pre dicted [Volume Rate/Area] in Serum or Plasma by Creatinine-based formula (MDRD) 47 ml/min/1.73m2 MEDENT ([facility] [facility] [place]) Calcium [Mass/volume] in Serum or Plasma 8.6 mg/dL 8.4-10.2 MEDENT ([facility] [employer] [facility] [place]) GFR Interpretation Laboratory test result MEDENT ([facility] [employer] [facility] [place]) <content></content>
<content> </con tent>
<content>NORMAL KIDNEY FUNCTION</content>
<content> OR MILD DISEASE - GFR >OR= 60</content>
<content>CHRONIC KIDNEY DISEASE - GFR 15 - 59</content>
<content>RENAL FAILURE - GFR <15</content>
<content> </content>< br/><content>Est. GFR calculation based on the MDRD</content>
<content>study equation, which assumes a steady</content>
<content>state for creatinine. Est. GFR should not</content>
<content>be used for medication dosing.</content>
<content></content> ID Date Data Source [id number] 01/20/2020 02:07:19 PM EDT [facility] [place] [facility] Name Value Range Interpretation Code Description Data Daphney rce(s) Supporting Document(s) SODIUM 142 mmol/L (136-145) [facility] [place] [facility] POTASSIUM 4.7 mmol/L (3.6-5.2) [facility] [place] [facility] CHLORIDE 108 mmol/L (100-108) [facility] [place] [facility] CO2 26 mmol/L (22-31) [facility] [place] [facility] ANION GAP 8 mmol/L (7-16) [facility] [place] [facility] UREA NITROGEN 25 mg/dL (7-24) H [facility] [place] [facility] CREATININE 1.50 mg/dL (0.80-1.30) H [facility] [place] [facility] BUN/CREAT RATIO 16.7 RATIO (10.0-20.0) [facility] GLUCOSE 147 mg/dL (70-99) H [facility] [place] [facility] CALCIUM 8.6 mg/dL (8.4-10.2) [facility] [place] [facility] GFR 47 ml/min/1.73m2 (>59) L [facility] [place] [facility] GFR ( AMER) 57 ml/min/1.73m2 (>59) L [facility] [place] [facility] GFR INTERPRETATION [facility] [place] --NORMAL KIDNEY FUNCTION OR MILD DISEASE - GFR >OR= 60CHRONIC KIDNEY DISEASE - GFR 15 - 59RENAL FAILURE - GFR <15 Est. GFR calculation based on the MDRDstudy equation, which assumes a steadystate for creatinine. Est. GFR should notbe used for medication dosing. ID Date Data Source [id number] 01/20/2020 01:38:40 PM EDT [facility] [place] [facility] [place] Name Value Range Interpretation Code Description Data Daphney rce(s) Supporting Document(s) WBC 15.5 10*3/uL (4.1-11.0) H [facility] [place] [facility] RBC 4.47 10*6/uL (4.60-6.10) L [facility] [place] [facility] HGB 14.3 g/dL (13.5-18.0) [facility] [place] [facility] HCT 43.4 % (41.0-53.0) [facility] [place] [facility] MCV 97.1 fL (80.0-95.0) H [facility] [place] [facility] MCH 32.0 pg (27.0-32.0) [facility] [place] [facility] MCHC 32.9 g/dL (32.0-36.0) [facility] [place] [facility] RDW 14.5 % (10.5-14.5) [facility] [place] [facility] [place] PLT 172 10*3/uL (150-450) [facility] [place] [facility] [place] MPV 9.3 fL (7.1-10.7) [facility] [place] ID Date Data Source [id number] 01/20/2020 01:00:00 PM EDT MEDENT (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 Grader Supervisor [facility]) Name Value Range Interpretation Code Description Data Daphney rce(s) Supporting Document(s) Color of Urine by Auto Laboratory test result MEDENT (Associated Cl[employer] Grader Supervisor [facility]) Clarity in Urine by Refractometry automated Laboratory test result MEDENT (Associated Cl[employer] Gr[employer] Supervisor [facility]) pH of Urine by Automated test strip 5.5 5.0-7.5 MEDENT (Associated Cloth Grader Supervisor [facility]) Specific gravity of Urine by Refractometry automated 1.017 1.003 -1.030 MEDENT (Associated Cloth Grader Supervisor [facility]) Leukocyte esterase [Presence] in Urine by Automated te st strip Laboratory test result Abnormal (applies to non-numeric results) MEDENT (Associated Cl[employer] Grader Supervisor [facility]) Nitrite [Presence] in Urine by Automated test strip Laboratory t est result Abnormal (applies to non-numeric results) [facility] ([facility]) Protein [Mass/volume] in Urine by Automated test strip Laborator y test result MEDENT (Associated Cloth Grader Supervisor [facility]) Glucose [Mass/volume] in Urine by Automated test strip Laborator y test result MEDENT (Associated Cloth Grader Supervisor [facility]) Ketones [Mass/volume] in Urine by Automated test strip Laborator y test result MEDENT (Associated Cloth Grader Supervisor [facility]) Urobilinogen [Units/volume] in Urine by Test strip 1.0 mg/dL 0-1.0 MEDENT (Associated Cloth Grader Supervisor [facility]) Hemoglobin [Presence] in Urine by Automated test strip Laborator y test result Abnormal (applies to non-numeric results) [facility]) Bilirubin.total [Presence] in Urine by Automated test strip Laboratory test result MEDENT ([facility]ated [facility]) ID Date Data Source [id number] 01/20/2020 01:00:00 PM EDT MEDENT (Assoc iated Cloth Grader Supervisor [facility]) Name Value Range Interpretation Code Description Data Daphney rce(s) Supporting Document(s) Leukocytes [#/area] in Urine sediment by Microscopy hi gh power field Laboratory test result 0-5 MEDENT (Associated Medical P rofessionals [facility]) Epithelial cells [#/area] in Urine sediment by Microsc opy high power field Laboratory test result MEDENT ([facility]ated [employer] [facility] [place]) Erythrocytes [#/area] in Urine sediment by Microscopy high power field Laboratory test result 0-2 MEDENT ([facility]ated [employer] [facility] [place]) Bacteria [#/area] in Urine sediment by Microscopy high power field Laboratory test result MEDENT ([facility] [place]) ID Date Data Source [id number] 01/20/2020 01:00:00 PM EDT MEDENT ([facility]oc iated [employer] [facility] [place]) Name Value Range Interpretation Code Description Data Daphney rce(s) Supporting Document(s) Bacteria identified in Urine by Culture Laboratory test result MEDENT (Associated Cloth Grader Supervisor [facility]) SPECIMEN DESCRIPTION MIDSTREAM UR INE,CLEAN CATCH CULTURE RESULTS >100,000 CFU/ML STAPHYLOCOCCUS, COAGULASE [...] SUSCEPTIBLE TRIMETH/SULFA 8/152 RESISTANT CIPROFLOXACIN >=8 RESISTANT ID Date Data Source [id number] 01/22/2020 08:14:42 AM EDT [facility] [place] [facility] SPECIMEN DESCRIPTION MIDSTREAM UR INE,CLEAN CATCHCULTURE RESULTS >100,000 CFU/ML STAPHYLOCOCCUS, COAGULASE NEGATIVE KERON NUMBERS CAN NOT BE DIRECTLY COMPARED ACROSS DIFFERENT ANTIBIOTICS. KERON VALUES ARE OCCASIONALLY USEFUL. SUSCEPTIBLE OR RESISTANT INTERPRETATIONS ALONE ARE SUFFICIENT FOR ANTIBIOTIC SELECTION IN THE GREAT MAJORITY OF INFECTIONS.REPORT STATUS FINAL 01/22/2020ORGANISM STAPHYLOCOCCUS, COAGULASE NEGATIVEMETHOD MICNITROFURANTOIN 64 INTERMEDIATELEVOFLOXACIN >=8 RESISTANTLINEZOLID 2 SUSCEPTIBLEOXACILLIN >=4 RESISTANT OXACILLIN PREDICTS RESULTS FOR PENICILLINASE RESISTANT PENICILLINS, BETA LACTAM/BETALACTAMASE INHIBITOR COMBINATIONS,CEPHALOSPORINS (WITH THE EXCEPTION OF CEPHALOSPORINS WITH ANTI MRSA ACTIVITY), AND CARBAPENEMS PER CLSI STANDARDS.TETRACYCLINE >=16 RESISTANT ISOLATES RESISTANT TO TETRACYCLINE MAY BE SUSCEPTIBLE TO DOXYCYCLINE AND MINOCYCLINE. TESTING WILL BE PERF ORMED UPON REQUEST.VANCOMYCIN 2 SUSCEPTIBLETRIMETH/SULFA RESISTANTCIPROFLOXACIN >=8 RESISTANT Name Value Range Interpretation Code Description Data Daphney rce(s) Supporting Document(s) ID Date Data Source [id number] 01/20/2020 02:04:10 PM EDT [facility] [place] [facility] Name Value Range Interpretation Code Description Data Daphney rce(s) Supporting Document(s) URINE WBC (0-5) [facility] [place] [facility] URINE RBC (0-2) [facility] [place] [facility] EPITHELIAL CELLS 2+ [HPF] [facility] [place] [facility] BACTERIA 1+ [HPF] [facility] [place] [facility] ID Date Data Source [id number] 01/20/2020 01:27:50 PM EDT [facility] [place] [facility] Name Value Range Interpretation Code Description Data Daphney rce(s) Supporting Document(s) COLOR [facility] [place] [facility] APPEARANCE [facility] [place] [facility] SPEC GRAV URINE 1.017 (1.003-1.030) [facility] PH URINE 5.5 (5.0-7.5) [facility] [place] [facility] LEUK ESTERASE 2+ (NEG) A [facility] [place] [facility] NITRITE URINE (NEG) A [facility] [place] [facility] PROTEIN URINE (NEG) [facility] [place] [facility] GLUCOSE URINE (NEG) [facility] [place] [facility] KETONE URINE (NEG) [facility] [place] [facility] [place] UROBILINOGEN 1.0 mg/dL (0-1.0) [facility] [place] [facility] [place] BILIRUBIN URINE (NEG) [facility] [place] [facility] [place] BLOOD/HGB URINE 3+ (NEG) A [facility] [place] [facility] [place] ID Date Data Source [id number] 01/20/2020 12:52:00 PM EDT MEDENT (Assoc iated [employer] [facility] [place]) Name Value Range Interpretation Code Description Data Daphney rce(s) Supporting Document(s) Comment Laboratory test result ME JAVED ([facility]ated [employer] [facility] [place]) THE [place] FDA HAS MADE THIS TEST AVAILABL E UNDER AN EMERGENCY USE AUTHORIZATION (EUA) FOR THE DETECTION AND/OR DIAGNOSIS OF THE VIRUS THAT CAUSES COVID-19. EMAILED TO [facility] AT 1643 HL [id number] [phone] [id number]. Covid19 Result Laboratory test result MEDENT (Associated Cl[employer] [facility] [place]) THIS ASSAY AMPLIFIES AND DETECTS THE TARGET RNA USING REAL-TIME PCR. NEGATIVE 2019_NCOV RT-PCR RESULTS DO NOT PRECLUDE 2019_NCOV INFECTION AND SHOULD NOT BE USED THE SOLE BASIS FOR PATIENT MANAGEMENT DECISIONS. Specimen source [Identifier] of Unspecified specimen Laboratory mikki t result MEDENT (Associated Cl[employer] [facility] [place]) Employed In [employer] Laboratory test result MEDENT (Associated Cl[employer] [facility] [place]) First Test Laboratory test result ME DENT (Associated Cl[employer] [facility] [place]) Symptomatic Laboratory test result M EDENT (Associated [employer] [facility] [place]) Icu Laboratory test result ME DENT (Associated [employer] [place]) Patient was hospitalized because of this condition Laboratory test re sult MEDENT (Associated [employer] [facility] [place]) Illness or injury onset date and time Laboratory test result MEDENT (Associated [employer] [employer] [place]) Laboratory test result ME DENT (Associated [employer] [facility] [place]) Congregate Care Set Laboratory test result MEDENT ([facility]ated [employer] [facility] [place]) ID Date Data Source [id number] 01/20/2020 12:52:00 PM EDT [facility] [place] [facility] Name Value Range Interpretation Code Description Data Daphney rce(s) Supporting Document(s) SARS coronavirus 2 RNA [Presence] in Res piratory specimen by ASCENCION with probe detection [facility] [place] [facility] This lab was reported by [facility] [place] [facility]. ID Date Data Source [id number] 01/20/2020 03:17:15 PM EDT [facility] [place] [facility] [place] Name Value Range Interpretation Code Description Data Daphney rce(s) Supporting Document(s) SPECIMEN DESCRIPTION [facility] [place] COVID19 RESULT (NDET) [facility] [place] [facility] THIS ASSAY AMPLIFIES AND DETECTSTHE TARG ET RNA USING REAL-TIME PCR.NEGATIVE 2019_NCOV RT-PCR RESULTS DONOT PRECLUDE 2019_NCOV INFECTION ANDSHOULD NOT BE USED THE SOLE BASISFOR PATIENT MANAGEMENT DECISIONS. COMMENT [facility] [place] [facility] [place] UNDER AN EMERGENCY USE AUTHORIZATION(EUA ) FOR THE DETECTION AND/OR DIAGNOSISOF THE VIRUS THAT CAUSES COVID-19.EMAILED TO [facility] AT [address] [place] [id number]. FIRST TEST [facility] [place] [facility] [place] EMPLOYED IN [employer] [facility] [place] SYMPTOMATIC [facility] [place] [facility] [place] DATE OF SYMPT ONSET [facility] [place] HOS[facility]ITAL[facility]ED [facility] [facility] ICU [facility] [place] [facility] CONGREGATE CARE SET [facility] [place] [facility] ID Date Data Source [id number] 01/20/2020 11:14:00 AM EDT MEDENT (Assoc iated [employer] [facility] [place]) Name Value Range Interpretation Code Description Data Daphney rce(s) Supporting Document(s) Bacteria identified in Urine by Culture Laboratory test result MEDENT ([facility]ated [employer] [facility] [place]) SPECIMEN DESCRIPTION MIDSTREAM UR INE,CLEAN CATCH CULTURE RESULTS >100,000 CFU/ML STAPHYLOCOCCUS, COAGULASE [...] SUSCEPTIBLE TRIMETH/SULFA 8/152 RESISTANT CIPROFLOXACIN >=8 RESISTANT ID Date Data Source [id number] 01/22/2020 08:23:27 AM EDT [facility] [place] [facility] SPECIMEN DESCRIPTION MIDSTREAM UR INE,CLEAN CATCHCULTURE RESULTS >100,000 CFU/ML STAPHYLOCOCCUS, COAGULASE NEGATIVEREPORT STATUS FINAL 01/22/2020ORGANISM STAPHYLOCOCCUS, COAGULASE NEGATIVEMETHOD MICNITROFURANTOIN 64 INTERMEDIATELEVOFLOXACIN >=8 RESISTANTLINEZOLID 2 SUSCEPTIBLEOXACILLIN >=4 RESISTANT OXACILLIN PREDICTS RESULTS FOR PE NICILLINASE RESISTANT PENICILLINS, BETA LACTAM/BETALACTAMASE INHIBITOR COMBINATIONS,CEPHALOSPORINS (WITH THE EXCEPTION OF CEPHALOSPORINS WITH ANTI MRSA ACTIVITY), AND CARBAPENEMS PER CLSI STANDARDS.TETRACYCLINE > =16 RESISTANT ISOLATES RESISTANT TO TETRACYCLINE MAY BE SUSCEPTIBLE TO DOXYCYCLINE AND MINOCYCLINE. TESTING WILL BE PERFORMED UPON REQUEST.VANCOMYCIN 1 SUSCEPTIBLETRIMETH/SULFA 8/152 RESISTANTCIPROFLOXACIN >=8 RESISTANT Name Value Range Interpretation Code Description Data Daphney rce(s) Supporting Document(s) ID Date Data Source [id number] 01/20/2020 10:51:00 AM EDT MED[facility] ([facility]oc [facility]ated [facility] [facility] [place]) Name Value Range Interpretation Code Description Data Daphney rce(s) Supporting Document(s) Glucose [Presence] in Urine Laboratory test result MEDENT ([facility] [employer] [facility] [place]) Protein [Presence] in Urine by Test strip Laboratory test result MEDENT ([facility] [employer] [facility] [place]) Blood [Presence] in Urine by Visual Laboratory test result MEDENT ([facility]ated [employer] [facility] [place]) Ua Leuko Laboratory test result ME DENT ([facility]ated [employer] [facility] [place]) Ua Nitrite Laboratory test result ME DENT (Associated [employer] [facility] [place]) Color of Urine Laboratory test result 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/dL 0.0-1.0 MEDENT (Associated Cl[employer] Grader Supervisor [facility]) Bilirubin.total [Presence] in Urine by Test strip Laboratory test res ult MEDENT (Associated Cl[employer] Grader Supervisor [facility]) ID Date Data Source [id number] 10/24/2019 07:45:00 AM EDT [facility] Name Value Range Interpretation Code Description Data Daphney rce(s) Supporting Document(s) Colonoscopy [facility] MMBAUh1bOrEUMiIrSVQdAwsBMAfdOOnlQSUbM1P6LBdqSq5JAKovmwEkJICrXi3+VCBdBX1nly5sYPYg gMy 8zVKYyYgpiU1KfZQFap65SMZIiAXgQVsQiSyLcUkPrCTnfSLTjSBJ8FaKeNazkIS5sLED9SDLjHEsuGD NeIMrnZQB6HkgzOR9gMRczCQpqFf6FCE0zu0MvEWAuNWDbVrgXJQzhPKfxZNUwUCHoVRFfQ836ddVkCn 8PnPDvSRt8HQIxBmZ9IMXsDnN4DYDnXy1oBhOpq2Uu R2InHTb1V9lHCnbxZ9WrEVcjWQ0wWIZ9JDExZp4OoYrpAZqtLWZOC5owWyKkNBCbRGZDXg9+Pj4+DWVu JM1zvl54QAEpw1UeMSx0J3V3lGKbH7KuU6HrMJAslYRBx7bwIcFlOKS2PHNmKuppVQ9AVECieGUkGHPu IVlvUG6pfbRmmXJ8TX3JzAjgRWZeVAEBWv1+Pi9QYX NalvAcRjGhZUQgE76tlETawHSzTeruDTWRRR3+KYCfSM0lyd15GLLzj8QzKCc1C2cgdwc7dTBoTtJ7UM XiZnRuBMEsTN4vZT7LuHA9lCBeST1VyGXmSW6BiRGfBM3FC0SkMHJ1U5TsgNHxtmZiJ9KdUAHyJZZbl4 IyYJ0RF8GSUJHjCOZnD4BdxL0mA8CtU9TvK7Xxljzr JEKODy9UaKV8iDMrJOJrO4xyoMctnDAlZVtmP6VhxCHBGSKUh79hg76vgaOqZA2+l5UbRZNmOGo55kt1 ZVAcX/qqFKJLOfz6UYduTTLhWvGAvh0fI8euWtZ7FYv4OlljyJW3N0bWcSIY5//nfgd4nwi4iy/eD+/z 5DOOjd6+x9hj0oBn2qCe7DJFDRdhLDVKkCETAMKG03 puoGr6ENeytDlqeAoG+ABxCUITsJBca2gL2W4Zf1FBrbMkNvE30+Ln1gtn0jsa1gSn8+Lm/FwdLA3yo9 ZHQyfGwCDmfEv+lvP/WD68SFnayJewwmDWJoZIAbKPK+FaI9RIDZVeJjpPRO4sGHwZHpSud8Xtx5E7CN CPDXiFAAS+QgQiISEi/u31+qoVBTXUbt8V5AGOD5xJ [file] chronometer assembler+4EQq3lxeeIUR9u+inEWeV/ael3xklopz0c07IQ+FpdzDlKm3zEvqkyPjfQhUaKwg5gTp3sULP8MU [file] SfYxh+jxQqNvORLuwOkjHRvyxXqOKNl03MfztIkhFWsdDNs/Ic2Hb3w0o0pe8IrqW3mJRDOlSkw/b/lbd teacher [file] cgfYj/OJTQR4A6LjGDIXpv6s1t4ZEOtGvp5WF171wLSJ17pTO4e/6+9TZNYz4p6XC/Riley++vzmQnUGUM P/YShfyC/GoshtyqIT8r+cX7LEniEaMXKvqaEu9Qcn 6CjdA9gs71SxwEMoezvc5bc4O80vGHR/FpANgx0zxYZXWaolyQuMDCMuNfTudbz2LyoNK3RCK86p/7Ua r2GpIQ+LAvjnKlukmN7n3jbIzUcXA20ehB36PJOg354nOOQXKkmEQqmQUELtASqKX3g7/lYZVl08nEe8 Un7vcenRSsjqUysRp5Aqhl+3C3tKtwSlh9UTMe50XB IFHrJEIWuD9p3cm65BTx5D8o7dsY06+nXo1HFR8TX8GTvciaEFKr8YzXjDOn/bofN9c+SY5dWySzEMyH 7ckPpOp4yAP9C9Knkrp9jPpv8rn8JlZobSMaC+OcVho3SaM/XffN//OYSLT9LVo/G39FfzsxxGnsqm8K rdAL0lUgvtNG2DJrYRfMP1LEgOWo9Xjz7AoMv6lMgz pDKs2sWyG7Cuo9YkaXoHCBc9pE/c3YS5PAM7UrjlsBpME9SNiPt/ErAcx5faMrr46yVW/yfoo0GfrtJI C0PX7Y224Y8kKp+xd2Bq0CZ0mdhl1+mZH1WT34dPulruyVoARnvjt41qwQt+lZxfGU8y2gd26gp9ApMc skz7HyvOiQJtxuULYvayYcwZXyMS2HU3N4UBK6P7fT sHMZNR6fArb7bgU79e+audNZLho4XNoPmlvVIZmz7uFEexk+rDGWELsxXZYtEhVlW3/OJ2r5sw57LFag Hzdko6CUGTOD/HPKUGW5+rT/8agHmSucOSHadkOHKX/c8TbfoUT9800alr1R5ul+DMNP27aJI7xfy0LD HYxriAODoxDnVBeK4cB6FMKGjai7+bhC+LjXkqhqHd tW3jeVE8/iMPyCwxpoBMpZFtQUodHGlcC+Sanjuana/aMyQltuUHMf26BOozf0fao8iw6C2heIkSN7sCTMFOK CMhvCrxFeOtL536K1w9pRUpG3VVj8KxznROaZtkKurbDTgY0Mp3usYQqwo3C5cHhHBL/pWMSgP09ib3n weOxGffEewu5nOkCawxSqVFpjGrkKTHhgd+WQWejjv DECORATIVE ENGRAVER/x1rRjT4BtzRjI1RyxlFgt3KCW7xQ+r8wU02MG9RITha88uN9yh67bMsp4unGtH5Qz+HmejNOu7r3c [file] Gluer Machine Setup Operator/Qa1dpKJgjn1WxJri7l09aXfEQBChz7dRKgxawy5ODZ03Q94KPyYxLCjfWkyTdqZbwqXmpfJWgmAfo [file] nEwatrwsIb73jf7p6rxctBG9u/GRpUwkxq5Rxnpz/T n6u62LyQmjTDbN7hqJy/kFNV+afHZk8geFRYV+Rk/L0boIjsW/L7NKxc/ukp86G0GWacCzHSVdHS/KyQ f/Grw+rRsRV2LKTxWyaiX9ybt7MpmDtQrUFg+yHSl3nnGrYyjeuXHQHixXURGs6hv1mY0aifon1MFH1c +RCh76DY6M8EY3iDye8jiMX538ro/URPPKZVMP9r1y DF//XfSPw7XugeDG2dUvAeRxzH8nMZ4pAK7bqo3r8k4nrcPLKe4iYLB76x1ownRHHmSTXadArhmGLktx TQtH2BB2SHADWRV2X2VbkoCcqxPzTYD3Mgavo6C8NcwNhNeaaPDxvm6iO6xzxbzt5EpPna5yk4H/dpbU 5k99eONf4sRnjPpNfax+AdmUi6oS/7KunA9bQjQTAN LO7pxnlzsdgCpvg3r/GdESndomby2xedlwgdR9C3MB16KL40+5AOvpHdf9+q3iq9xRVC/6g50/YD1pw7 dlRmL2hZZUALoFfv29bAa2bkX2rForNzdCvWVMZC6JqSBPQH+A4mU3aGmVvn642XF2djybR3v2Tfhg+i DLyTidv0sqX71X/jqSHs1ez8bROWMEAofeVqfbEZsF rcVpvxclBjKX8H2NL5nUUdEcjl3CHVT7geBv1PosCaJ+XcFcje5yQ52gpN03L5Oll4ESxkwp80Tk8iMh 2siagRAPCr7PTYW/i4rM/86OCQXl/5vH+k6OeKgaaK5JTK8cg6GjJVCdVEJdBE9vpl4yCbEaRO9rkn76 MI0MLZ8aqZyeXvN+BcE6pnZtvG1VpNm7LUQwPDRfIM u0IdNpPROzL75AA6wwSxGdPU9LNT4QRF8wb8DeINFhAAJxAQ5qja0mNyJwRL6ide57MZ0CqDk4DHVbU3 OmNABxVWFim5OtQ4xbfto9uCS6PQ1OJGRzFZIZOeoJByV9PUARJtA0KWHLKVR0IpLbWQAeGcQZOSTKLr N3XLTSQZRvMVhEFHD0DRMFStTfBBPpFxD8UKXzVDFK M0M+LD8Qk030TIZoAECZT7irZc0rYaNoXODbV0y1RSKxSX8LvHMqLO2KJsPzF0dvSaVaAFDdCG9+c3Ry OCMxQYv16vRgFJRuGOHNklaz2bAAjwDCiHOb9vFFLQrMUlJwe8q4gkZSc/EbiHQqBpNHgCRnUTOYvMIA CNVIM1jYZuKsCGP5jbAolE2NSH7xn9VvSD1Xr5AswcV4aoCqDVu2IDxpZrRIGwPgUA4Q ID Date Data Source [id number] 10/03/2019 01:15:00 PM EDT [facility] Name Value Range Interpretation Code Description Data Daphney rce(s) Supporting Document(s) [facility] VLQUFa7tRlFABgVwGHUtVimQNRpiRStdNMXhU3U5PTleBv8LXIanqrRyPEVpOb8+HBJfUI3xrd4kTVOc gMy [file] RxYxQAcf0P8vJPlg4/reconciliation analyst+xihQVtQ6C0RRBbgKNWbL5 [file] GZg6G5wEnyGkFy/XIt2aR4m7/lgxFAQeaG9BjkOmKo+ZypWuxp3y5CNTsxzp9n6QuWBCcN+name plate stamper/DVUfl/ [file] TyiXls89E0xqqMd6zRkFgpgrmrHlfQy6kfRv9TZZ1QqEMoWK45izMLbS4EAjg8fhYRfyI3dzgjGd/trial court justice [file] Alexandre+cRr+cukKNTn3Z1zUdQH8E9kUimA8jRWVX5ihQx/rf2Y+G0UArgEEY98zL/lIo4faxnPxJPXrjBH/ SYJpIUjm2PtpLheSSQ1/lGrfr5RwqI0k21OioOci/[facility] [file] maria c+zrrUaF9uKrG6d8RzrRTwqK/9U7v2Sd9PulU52ZO4cKwpbX7d4t/5Npk43+ggYSfYQD0fsxRu0PWR [file] C8vuMfeEGUIE+PouWfUGWbQ36s83B9QB/tuY9pXUm9bXgjlE2Gxa/checkroom attendant+bXwHGWla19UjNxqQ/thrXnv 2770h+rUvLqqx1/P/NNkQxvsZ36WqYk7I0142nrL9w HML423chuFPopMSJjcWPcrWCjZl3LWVlLGctkiVnCj0/nF6JBuxKefr8lr9EAL8BBr1AJZph6uwSLt+s +EivtC9CjRD9m5qEzVk/15QQk9Sbp9j/JDOTBY01bV31wHk6GUt8uHhkrVQLHFvKqbhsG/UvWEp7maQn ZLurSXDCi4PhbOdWlKVCcBUh8wJV6s+TsgqMtL+u2Z s2PoDgU20ReAKR3NoyCJzTueUld7aS923RUw0jntTAvc38tfaLq8qy4EA/+03xT3YnEELjZWdwrrYyys YCESvnp8UFR2XBr/pm6Q5INXR3hIrTmjBxyileyiUrTwwO84y3c/y1CMccCleK34lVR84eYw3gCXhvk4 4xXP9xORrWcIyZoSHiXCAgZ2y4nL3kgCni2Vt3eq3B 9j3XAFNMGKATCx1T64OUWMq+kLVEGZI+yvednBCbyhFyqHNH+qYlsxkLk7owA3kwAxofk3qHFEwu/zTX 7KPODwHcvPSFgjcWAOe92mprHqx0fAtJC6HW0bosz2RVx7lhFdeYjcjzooFEiR3tX3yRaqOVZCRXuQgS pcSfW3d3syi1ygKKpZCI+00Lbp02a08CIUPbPUldZd oQLSKnnZnXRClqkFdkHdAiidd1JOdmMySl3S4uNt81+aQrAI5kRZAwf59CTE2FYl5J1GDxV2yFBYlL0D zXoTmXNw5p42SW+Er2IT+PAgeDtzt5H/urtJ7Cckzyaj4mwxuTigO3dE0P7/zLzrJw/Qoh3z3NgPVDDk bk0m7f5z/dnAYMAVf21aH5Urq/ssvVLs4NMtyvzWL0 shaquille+flaMK+AXqUCocnC5dJAzVGK+GdUCCO9yjOJIahqJ38P9j7yYlHgvqylgD6FD+jsX8Qdi6n4OEBOj [file] VrKibyCmlK/KLfd9QhJJh6kBr1LkXkVGSr6aBi9qcZtnATurLIe9h1KfB8DNBvICbfhjnhFIEuWjL+lbd teacher [file] GcFim3uB1IOsMp6TK0P+NETWORK SYSTEMS ENGINEER+xiopYGmjloKUunyyPUzvvOzPZ2gpmluPyFJDKBShaGx/sdiyjev0sqfHY [file] TzZaZ5nF9VcRrK2HV6cLcAQWF3PFWrjNVJb0EK+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 manager [file] 3FJjkg6IxrJd+P/mHYhTuAcN0JUQlgk377i0YV+FyvwXz3RwAnHZ+mary beth+aHxjOrvc9fR5GRfQZs/6+IP [file] iqDiuFXERG7vISvBdcZLEVAYYUMPSOFr8OO1egohio bZDdFy8BDx/0TilvPyW8yfrt96HnbwUKnvTYGnDnuNT0ZiutCF5tUBsGSFqE2rIDCcAqm5ExDlU8/Y6C xk6OkPqi6hJ6AMa+5/nVoyr1+7458zgEnyeN6yCGQ2AXQG18TptlbaeXhK5D443Wndt3DmlBoKqNASx1 AFoa+8LZMbjde3yDRUhmNc9eWW7c8xdCezgeYylgZj qkL6pKzThpMirtVZNJRShv2jyxne8kiMekhVWAVwyw45vhCbxNEVHLwA0wjbpdAsqGFUsHzkxvdck+vX pp1VEw/qy16DpCwWY3K3mCBc6OFZnUJpdrH0FSaNH0235FdskkWYuO53t55Vjgrdbg+fv8RrngfZhgL2 YdkmBo3Q+VMLmbcj+name plate stamper+BOFfQDKYBYsy1ifq2N8jjw [file] 9dcjX8VDW3fZ7+Supervisor [employer]+Aavu/Venus/kq2jFcpp7O7RRlRCnO9ioBKq6ph438UJ4/XwkCnANICRxmK+UwgDtA [file] Luis Eduardo/7JyAh4OusOLoQaC4SNnBBTWZMnohDQApTzy+CD7FlkY/ZDpshiGdraG1u1hMidfZCW/WZ9JPgQJD WIBEMZWOlmQeDWZgiqARymnZ0XZ1d4ejGmc84ozgXD gyaThWi13xZOT3D6pLMx4MSPrujwH1tIvMJ4IwcomzpieQ/er5j4+WnsgcSTzXz+u+5apAsacz2+CMil cToOKiVYZBKJRYMWtof7P1nScRDE5cHxTeDGJWYzoaobGlmMQ+Ne7+gERM0MZT1gQ8jWI1yu0E+tMX+1 BKjsZ1C+GOuUIczAHyVo0OVIeow1r/ah9H7Zp9791I c/Dj5/mOTnls+SXlNFba5vWW8yAnzoiI4koJ9LcufC0B097eYcR5hiytr5JvWU9lOFBmpiRSsO7+R4bW XBNfG1hnPNt8O2Ye2ojRpCw0FgrhBD11AvbB0U7tjAJukWaohNWFfga2as7t5eey32Ss8de4r1oqD5tk PakH+FJUPD5ipq2XJ7hDFKRCOB4WGKEB0YycnyMsID [file] EYygvjUpdTKoDW3UEvEiCV1tku7BFvS1AMX9dZFaHt6FKHDbXAU6Ei5TEVEUD2D= ID Date Data Source [id number] 09/02/2019 10:01:00 AM EDT [facility] ([facility] [facility]) Name Value Range Interpretation Code Description Data Daphney rce(s) Supporting Document(s) Urate [Mass/volume] in Serum or Plasma 4.9 mg/dL 3.7-8.6 MEDENT ([facility]) A courtesy copy of this report has been sent to [phone] Calcidiol [Mass/volume] in Serum or Plasma 31.7 ng/mL 30.0-100.0 MEDENT ([facility] [employer] [facility]) A courtesy copy of this report has been sent to [phone] ID Date Data Source [id number] 09/02/2019 10:01:00 AM EDT [facility] ([facility] [employer] [facility]) Name Value Range Interpretation Code Description Data Daphney rce(s) Supporting Document(s) Urea nitrogen [Mass/volume] in Serum or Plasma 21 mg/dL 8-27 MEDENT ([facility] [employer] [facility]) A courtesy copy of this report has been sent to [phone] Glucose [Mass/volume] in Serum or Plasma 136 mg/dL 65-99 MEDENT ([facility] [employer] [facility]) A courtesy copy of this report has been sent to [phone] eGFR If NonAfricn Am 62 mL/min/1.73 MEDENT ([facility] [employer] [facility]) A courtesy copy of this report has been sent to [phone] Creatinine [Mass/volume] in Serum or Plasma 1.24 mg/dL 0.76-1.27 MEDENT ([facility] [employer] [facility]) A courtesy copy of this report has been sent to [phone] Sodium 144 mmol/L 134-144 MEDENT ([facility] [employer] [facility]) A courtesy copy of this report has been sent to [phone] BUN/Creatinine Ratio 17 10-24 MEDE NT ([facility] [employer] [facility]) A courtesy copy of this report has been sent to [phone] eGFR If Africn Am 72 mL/min/1.73 MED ENT ([facility] [employer] [facility]) A courtesy copy of this report has been sent to [phone] Carbon Dioxide, Total 24 mmol/L 20-29 MED ENT ([facility] [employer] [facility] [facility]) A courtesy copy of this report has been sent to [phone] Chloride 105 mmol/L 96-106 MEDENT ([facility] [employer]) A courtesy copy of this report has been sent to [phone] Potassium 4.6 mmol/L 3.5-5.2 MEDENT (Associ ated [employer] Super[facility]) A courtesy copy of this report has been sent to [phone] Calcium [Mass/volume] in Serum or Plasma 9.4 mg/dL 8.6-10.2 MEDENT ([facility] [employer]) A courtesy copy of this report has been sent to [phone] ID Date Data Source [id number] 09/03/2019 04:06:00 AM EDT [facility] Name Value Range Interpretation Code Description Data Daphney rce(s) Supporting Document(s) Glucose 136 mg/dL 65-99 Above high normal [facility] BUN 21 mg/dL 8-27 [facility] Creatinine 1.24 mg/dL 0.76-1.27 [facility] eGFR If NonAfricn Am 62 mL/min/1.73 >59 [facility] eGFR If Africn Am 72 mL/min/1.73 >59 [facility] BUN/Creatinine Ratio 17 10-24 [facility] Sodium 144 mmol/L 134-144 [facility] Potassium 4.6 mmol/L 3.5-5.2 [facility] Chloride 105 mmol/L 96-106 [facility] Carbon Dioxide, Total 24 mmol/L 20-29 [facility] Calcium 9.4 mg/dL 8.6-10.2 [facility] ID Date Data Source [id number] 09/03/2019 05:06:00 AM EDT [facility] Name Value Range Interpretation Code Description Data Daphney rce(s) Supporting Document(s) Vitamin D, 25-Hydroxy 31.7 ng/mL 30.0-100.0 [facility] Vitamin D deficiency has been defined by the [place] of[place] and an Endocrine Society practice guideline as alevel of serum 25-OH vitamin D less than 20 ng/mL (1,2).The Endocrine Society went on to further define vitamin Dinsufficiency as a level between 21 and 29 ng/mL (2).1. IOM ([place] of [place]). 2010. Dietary reference intakes for calcium and D. [place]: The National Academies Press.2. Deonna MF, Dustin TERRY, Raulito LEE, et al. Evaluation, treatment, and prevention of vitamin D deficiency: an Endocrine Society clinical practice guideline. JCEM. 2010; 96(7):1911-30. ID Date Data Source [id number] 09/03/2019 08:08:00 AM EDT [facility] Name Value Range Interpretation Code Description Data Daphney rce(s) Supporting Document(s) Uric Acid 4.9 mg/dL 3.7-8.6 [facility] Therapeutic ta rget for gout patients: <6.0 ID Date Data Source [id number] 08/22/2019 12:00:00 PM EDT MEDENT ([facility] i[facility]) Name Value Range Interpretation Code Description Data Daphney rce(s) Supporting Document(s) Laboratory test finding (navigational concept) Laboratory test result MEDENT ([facility]) ID Date Data Source [id number] 08/22/2019 12:00:00 PM EDT [facility] ([facility]oc iated [facility]) Name Value Range Interpretation Code Description Data Daphney rce(s) Supporting Document(s) 24 hr Creatinine 1577 mg/d MEDENT ( Associated [employer] [facility]) Source of Specimen: Urine 24 hr Calcium per 24 hr Creatinine 50 mg/g 34-196 MED[facility] ([facility] [employer] [facility]) Source of Specimen: Urine 24 hr Calcium per Kilogram Body Weight 0.6 mg/d/kg [facility] ([facility] [employer]) Source of Specimen: Urine 24 hr Creatinine per Kilogram Body Weight 12.3 mg/d/kg 11.9-24.4 [facility] ([facility] [employer] [facility]) Source of Specimen: Urine ID Date Data Source [id number] 08/22/2019 12:00:00 PM EDT [facility] ([facility]oc iated [employer] [employer] [facility]) Name Value Range Interpretation Code Description Data Daphney rce(s) Supporting Document(s) 24 hr Chloride 158 mmol/d 70-250 [facility] (As sociated [facility] [place]) Source of Specimen: Urine 24 hr Sulfate 41 mEq/d 20-80 MEDENT (Ass ociated [employer] Super[facility]) Source of Specimen: Urine 24 hr Sodium 179 mmol/d 50-150 MEDENT (Asso ciated [employer] Supervisor [facility]) Source of Specimen: Urine 24 hr Potassium 54 mmol/d 20-100 MEDENT (A ssociated [employer] Supervisor [facility]) Source of Specimen: Urine 24 hr Ammonium 47 mmol/d 15-60 MEDENT (As sociated [employer] Supervisor [facility]) Source of Specimen: Urine 24 hr Urea Nitrogen 13.42 g/d 6.00-14.00 MEDEN T ([facility]ated [employer] [facility]) Source of Specimen: Urine 24 hr Magnesium 121 mg/d 30-120 MEDENT (A ssociated [employer] Gr[employer] Supervisor [facility]) Source of Specimen: Urine 24 hr Phosphorus 1.359 g/d 0.60-1.20 MED[facility] ( Associated [employer] Supervisor [facility]) Source of Specimen: Urine This value shows an increased risk factor of 1, where 0 is normal and 7 is extremely high. Protein Catabolic Rate 0.8 g/kg/d 0.8-1.4 [place] DENT ([facility]ated [facility]) Source of Specimen: Urine ID Date Data Source [id number] 08/22/2019 12:00:00 PM EDT MED[facility] (Assoc iated [employer] [employer] Super[facility]) Name Value Range Interpretation Code Description [facility] Supporting Document(s) Interpretations Collection A Laboratory test result MEDENT ([facility]ated [employer] [facility]) Source of Specimen: Urine : Urine pH [...] normal. Management suggestions are as noted above. ID Date Data Source [id number] 08/22/2019 12:00:00 PM EDT MEDENT ([facility] Super[facility]) Name Value Range Interpretation Code Description Data Daphney rce(s) Supporting Document(s) pH 5.441 5.800-6.200 [facility] ([facility] [place]) Source of Specimen: Urine This value shows an increased risk factor of 4, where 0 is normal and 7 is extremely high. 24 hr Uric Acid 0.317 g/d MEDENT ([facility] Cl[facility] Grader Supervisor [facility]) Source of Specimen: Urine 24 hr Calcium 80 mg/d [facility] Source of Specimen: Urine 24 hr Citrate 109 mg/d MEDENT (Associat ed [employer] Supervisor [facility]) Source of Specimen: Urine This value shows an increased risk factor of 5, where 0 is normal and 7 is extremely high. Urine Volume 1.98 L/d 0.50-4.00 MEDENT (Asso ciated [employer] Supervisor [facility]) Source of Specimen: Urine This value shows an increased risk factor of 1, where 0 is normal and 7 is extremely high. 24 hr Oxalate 105 mg/d 20-40 MEDENT (Ass ociated [employer] Gr[employer] Supervisor [facility]) Source of Specimen: Urine This value shows an increased risk factor of 5, where 0 is normal and 7 is extremely high. Supersaturation CaP 0.15 0.50-2.00 MEDEN T (Associated [employer] [facility]) Source of Specimen: Urine Supersaturation Uric Acid 0.79 MEDENT (Associated [employer] Super[facility]) Source of Specimen: Urine Supersaturation CaOx 7.14 6.00-10.00 MEDE NT (Associated [employer] Super[facility]) Source of Specimen: Urine This value shows an increased risk factor of 3, where 0 is normal and 7 is extremely high. ID Date Data Source [id number] 08/17/2019 10:53:00 AM EDT [facility] ([facility]) Name Value Range Interpretation Code Description Data Daphney rce(s) Supporting Document(s) Red Blood Count 4.43 4.00-5.40 [facility] ([facility]) Platelets 155 172-450 MED[facility] (Cardiology A [facility]) White Blood Count 8.2 5.0-10.0 [facility] ([facility]) Hematocrit 41.6 [facility] ([facility]) Hemoglobin 14.0 [facility] ([facility]) ID Date Data Source [id number] 08/17/2019 10:53:00 AM EDT [facility] ([facility]) Name Value Range Interpretation Code Description Data Daphney rce(s) Supporting Document(s) Calcium [Mass/volume] in Serum or Plasma 7.9 [facility] ([facility]) Potassium [Moles/volume] in Serum or Plasma 3.9 [facility] ([facility]) Chloride [Moles/volume] in Serum or Plasma 111 [facility] ([facility]) Sodium 142 MED[facility] ([facility]iology A [facility]) Carbon dioxide, total [Moles/volume] in Serum or Plasma 24 [facility] ([facility]) Glucose 125 83-110 MED[facility] ([facility]iology A [facility]) Blood Urea Nitrogen 15 7-18 [facility] (Ca [facility]diology [facility]) Creatinine 1.08 0.6-1.0 [facility] ([facility]) Glomerular filtration rate/1.73 sq M.pre dicted [Volume Rate/Area] in Serum or Plasma by Creatinine-based formula (MDRD) Laboratory test result [facility] ([facility]) ID Date Data Source [id number] 08/16/2019 10:50:00 AM EDT [facility] ([facility]) Name Value Range Interpretation Code Description Data Daphney rce(s) Supporting Document(s) Triglycerides 154 [facility] ([facility]iol[facility]) HDL 28 MED[facility] (Cardiology [facility]) Cholesterol in LDL [Mass/volume] in Serum or Plasma by calculation 32 [facility] ([facility]) Cholesterol 91 [facility] ([facility]) Chol/HDL Ratio 3.250 [facility] ([facility]iol [facility]) ID Date Data Source [id number] 08/16/2019 10:50:00 AM EDT [facility] ([facility]) Name Value Range Interpretation Code Description Data Daphney rce(s) Supporting Document(s) Albumin [Mass/volume] in Serum or Plasma 3.1 [facility] ([facility]) Carbon dioxide, total [Moles/volume] in Serum or Plasma 25 [facility] ([facility]) Calcium [Mass/volume] in Serum or Plasma 7.8 [facility] ([facility]) Alanine aminotransferase [Enzymatic activity/volume] in Serum or Pl asma 28 [facility] ([facility]) Chloride [Moles/volume] in Serum or Plasma 112 [facility] ([facility]) Potassium [Moles/volume] in Serum or Plasma 3.8 [facility] ([facility]) Alkaline phosphatase [Enzymatic activity/volume] in Serum or Plasma 7 6 [facility] ([facility]) Sodium 144 [facility] ([facility] A [facility]) Protein [Mass/volume] in Serum or Plasma 6.6 [facility] ([facility] [place]) Aspartate aminotransferase [Enzymatic activity/volume] in Serum or Plasma 15 [facility] ([facility]) Urea nitrogen [Mass/volume] in Serum or Plasma 18 [facility] ([facility]) Glucose 139 83-110 [facility] Creatinine For GFR 1.07 [facility] (Car [facility]ology [facility]) ID Date Data Source [id number] 08/15/2019 10:47:00 AM EDT [facility] ([facility]) Name Value Range Interpretation Code Description Data Daphney rce(s) Supporting Document(s) White Blood Count 9.5 5.0-10.0 [facility] ([facility]) Platelets 174 172-450 [facility] Hematocrit 43.1 [facility] ([facility]) Red Blood Count 4.55 4.00-5.40 [facility] ([facility]) Hemoglobin 14.2 [facility] ([facility]) ID Date Data Source [id number] 08/15/2019 10:47:00 AM EDT [facility] ([facility]) Name Value Range Interpretation Code Description Data Daphney rce(s) Supporting Document(s) Magnesium Level 1.9 1.8-2.4 [facility] ([facility]) Troponin Laboratory test result [facility] ([facility]) ID Date Data Source [id number] 08/15/2019 10:47:00 AM EDT [facility] ([facility]) Name Value Range Interpretation Code Description Data Daphney rce(s) Supporting Document(s) Creatine kinase [Enzymatic activity/volume] in Serum or Plasma 88 [facility] ([facility]) MB/CK Relative 1.82 [facility] ([facility]iol [facility]) CPK-MB 1.6 [facility] ID Date Data Source [id number] 08/15/2019 10:47:00 AM EDT [facility] ([facility]) Name Value Range Interpretation Code Description Data Daphney rce(s) Supporting Document(s) Albumin [Mass/volume] in Serum or Plasma 3.6 [facility] ([facility]) Alanine aminotransferase [Enzymatic activity/volume] in Serum or Pl asma 30 [facility] ([facility]) Carbon dioxide, total [Moles/volume] in Serum or Plasma 26 [facility] ([facility]) Calcium [Mass/volume] in Serum or Plasma 8.1 [facility] ([facility]) Potassium [Moles/volume] in Serum or Plasma 4.6 [facility] ([facility]) Chloride [Moles/volume] in Serum or Plasma 110 [facility] ([facility]) Alkaline phosphatase [Enzymatic activity/volume] in Serum or Plasma 9 4 [facility] ([facility]) Protein [Mass/volume] in Serum or Plasma 7.0 [facility] ([facility]) Sodium 142 [facility] (Cardiology [facility]) Urea nitrogen [Mass/volume] in Serum or Plasma 19 [facility] ([facility]) Aspartate aminotransferase [Enzymatic activity/volume] in Serum or Plasma 24 [facility] ([facility] Creatinine For GFR 1.19 [facility] ([facility]) Glucose 108 83-110 [facility] ([facility]) ID Date Data Source [id number] 05/21/2019 01:44:00 PM EST [facility] ([facility] [place]) Name Value Range Interpretation Code Description Data Daphney rce(s) Supporting Document(s) Bacteria identified in Urine by Culture Laboratory test result [facility] ([facility] [place]) SPECIMEN DESCRIPTION MIDSTREAM UR INE,CLEAN CATCH CULTURE RESULTS MIXED UROGENITAL IRNEE; PLEASE SUBMIT A NEW SPEC IMEN IF CLINICALLY INDICATED. REPORT STATUS FINAL 05/22/2019 ID Date Data Source [id number] 05/22/2019 01:13:17 PM EST [facility] - CORE SPECIMEN DESCRIPTION MIDSTREAM UR INE,CLEAN CATCHCULTURE RESULTS MIXED UROGENITAL IRENE; PLEASE SUBMIT A NEW SPEC IMEN IF CLINICALLY INDICATED.REPORT STATUS FINAL 05/22/2019 Name Value Range Interpretation Code Description Data Daphney rce(s) Supporting Document(s) ID Date Data Source [id number] 05/21/2019 01:03:00 PM EST [facility] ([facility] [place]) Name Value Range Interpretation Code Description Data Daphney rce(s) Supporting Document(s) Protein [Presence] in Urine by Test strip Laboratory test result [facility] ([facility]) Ua Nitrite Laboratory test result [place] DENT ([facility]) Glucose [Presence] in Urine Laboratory test result [facility] ([facility] [employer] [facility]) Ua Leuko Laboratory test result [place] DENT ([facility] [facility]) Blood [Presence] in Urine by Visual Laboratory test result [facility] ([facility]) Ketones [Presence] in Urine by Test strip Laboratory test result [facility] ([facility] [employer] [facility]) Color of Urine Laboratory test result [facility] ([facility] [employer] [facility]) Clarity of Urine Laboratory test result [facility] ([facility] [employer] [facility]) Ua Specific [place] 1.010 1.003-1.030 MEDE NT ([facility]ated [employer] [facility]) pH of Urine by Test strip 5.5 5.0-7.5 MED[facility] ([facility]ated [employer] [facility]) Bilirubin.total [Presence] in Urine by Test strip Laboratory test res ult MEDENT ([facility]) Urobilinogen [Mass/volume] in Urine by Test strip 0.2 E.U./dL 0.0-1.0 MED[facility] ([facility]ated [employer] [employer] [facility]) ID Date Data Source [id number] 05/21/2019 12:08:00 PM EST [facility] ABDOMEN KUBCLINICAL HISTORY: Calculus of kidney.COMPARISON: 01/2018TECHNIQUE: AP view of the abdomen.FINDINGS: Evaluation for kidney stones is compromised because of superimposed stool and bowel gas.There is suspicion for 8 stones in the right kidney with the largest stones measuring about 6 mm at the midpole and 5 mm at the lower pole. There may be 2 stones in the left kidney measuring about 2 mm each. No ureteral stones are suspected on the right. On the left, there is a questionable 6 mm calcification in the region of the distal left ureter and the bladder where it would be difficult to exclude a stone but the calcification could be a phlebolith.The bowel gas pattern is nonspecific. There are some air-filled loops of small bowel in the left abdomen. There is a large quantity of stool.IMPRESSION: Evaluation for kidney stones is compromised because of superimposed stool and bowel gas.There is suspicion for a 6 mm calcification in the left pelvis which could represent a distal ureteral/bladder stone, or a phlebolith.There may be up to 8 stones in the right kidney with the largest stone measuring 6 mm.Suspect 2 punctate stones in the left kidney.Large quantity of stool.Dictated by: JACOB BARRERA on 05/21/2019 Transcribed by: kadi on 05/21/2019 01:11 PMcc: Name Value Range Interpretation Code Description Data Dapheny rce(s) Supporting Document(s) ID Date Data Source [id number] 04/28/2019 07:54:00 AM EST [facility] ([facility]) Name Value Range Interpretation Code Description Data Daphney rce(s) Supporting Document(s) Prostate specific Ag [Mass/volume] in Serum or Plasma 0.5 ng/mL 0.0- 4.0 [facility] ([facility] [place]) [place] ECLIA methodology. According to the [place] [employer], Serum PSA should decrease and remain at undetectable levels after radical prostatectomy. The AUA defines biochemical recurrence as an initial PSA value 0.2 ng/mL or greater followed by a subsequent confirmatory PSA value 0.2 ng/mL or greater. Values obtained with different assay methods or kits cannot be used interchangeably. Results cannot be interpreted as absolute evidence of the presence or absence of malignant disease. ID Date Data Source [id number] 04/29/2019 07:05:00 AM EST [facility] Name Value Range Interpretation Code Description Data Daphney rce(s) Supporting Document(s) Prostate Specific Ag, Serum 0.5 ng/mL 0.0-4.0 [facility] [place] ECLIA methodology. According to th e [place] [employer], Serum PSA shoulddecrease and remain at undetectable levels after radicalprostatectomy. The AUA defines biochemical recurrence as an initialPSA value 0.2 ng/mL or greater followed by a subsequent confirmatoryPSA value 0.2 ng/mL or greater.Values obtained with different assay methods or kits cannot be usedinterchangeably. Results cannot be interpreted as absolute evidenceof the presence or absence of malignant disease. ID Date Data Source [id number] 04/21/2019 12:00:00 PM EST [facility] ([facility]) Name Value Range Interpretation Code Description Data Daphney rce(s) Supporting Document(s) Laboratory test finding (navigational concept) Laboratory test result [facility] ([facility]) ID Date Data Source [id number] 04/21/2019 12:00:00 PM EST [facility] ([facility]) Name Value Range Interpretation Code Description Data [facility] rce(s) Supporting Document(s) 24 hr Creatinine 1731 mg/d MED[facility] ( [facility]) Source of Specimen: Urine 24 hr Calcium per Kilogram Body Weight 0.5 mg/d/kg [facility] ([facility] [employer] [facility]) Source of Specimen: Urine 24 hr Creatinine per Kilogram Body Weight 14.2 mg/d/kg 11.9-24.4 [facility] ([facility] [facility]) Source of Specimen: Urine 24 hr Calcium per 24 hr Creatinine 36 mg/g 34-196 [facility] ([facility] [facility]) Source of Specimen: Urine ID Date Data Source [id number] 04/21/2019 12:00:00 PM EST [facility] Name Value Range Interpretation Code Description [facility] 24 hr Chloride 244 mmol/d 70-250 [facility] ([facility] [facility]) Source of Specimen: Urine This value shows an increased risk factor of 2, where 0 is normal and 7 is extremely high. 24 hr Sulfate 42 mEq/d 20-80 [facility] ([facility]) Source of Specimen: Urine 24 hr Ammonium 75 mmol/d 15-60 [facility] ([facility] [employer] [facility]) Source of Specimen: Urine 24 hr Potassium 71 mmol/d 20-100 [facility] (A [facility]) Source of Specimen: Urine 24 hr Phosphorus 1.728 g/d 0.60-1.20 [facility] ( [facility] [facility]) Source of Specimen: Urine This value shows an increased risk factor of 3, where 0 is normal and 7 is extremely high. 24 hr Sodium 245 mmol/d 50-150 [facility] ([facility]) Source of Specimen: Urine This value shows an increased risk factor of 2, where 0 is normal and 7 is extremely high. 24 hr Magnesium 168 mg/d 30-120 [facility] (A [facility]) Source of Specimen: Urine 24 hr Urea Nitrogen 16.50 g/d 6.00-14.00 MEDEN T ([facility]) Source of Specimen: Urine This value shows an increased risk factor of 1, where 0 is normal and 7 is extremely high. Protein Catabolic Rate 1.0 g/kg/d 0.8-1.4 ME JAVED ([facility] [place]) Source of Specimen: Urine ID Date Data Source [id number] 04/21/2019 12:00:00 PM EST ANNAMARIENATALY ([facility]) Name Value Range Interpretation Code Description Data Daphney rce(s) Supporting Document(s) Interpretations Collection A Laboratory test result ALFRED ([facility] [place]) Source of Specimen: Urine Director [facility] Laboratory's Note: At least one urine analyte was below the lower limit of the assay. In calculation of supersaturation values, the lower limit for that analyte was used. : Urine oxalate excretion remains extremely high (was 166 and now is 168 mg/d). Kidney damage and loss of renal function are possible [...] has not already been accomplished. : Urine pH has fallen slightly and is low (was 5.671 and now is 5.508). Despite low pH, uric acid stone risk [...] urine studies in 6 weeks. : Urine citrate remains low. Our records [...] of the low urine citrate (PCR = 1.0 g/kg/d, sulfate = 42 meq/d). ID Date Data Source [id number] 04/21/2019 12:00:00 PM EST [facility] ([facility] [place]) Name Value Range Interpretation Code Description Data Daphney rce(s) Supporting Document(s) 24 hr Oxalate 168 mg/d 20-40 [facility] ([facility] [place]) Source of Specimen: Urine This value shows an increased risk factor of 5, where 0 is normal and 7 is extremely high. 24 hr Uric Acid 0.345 g/d [facility] ([facility]) Source of Specimen: Urine pH 5.508 5.800-6.200 [facility] ([facility] [place]) Source of Specimen: Urine This value shows an increased risk factor of 3, where 0 is normal and 7 is extremely high. 24 hr Calcium 62 mg/d [facility] ([facility]) Source of Specimen: Urine 24 hr Citrate Laboratory test result [facility] ([facility]) Source of Specimen: Urine This value shows an increased risk factor of 5, where 0 is normal and 7 is extremely high. Supersaturation CaOx 4.50 6.00-10.00 MEDE NT ([facility] [place]) Source of Specimen: Urine Urine Volume 3.03 L/d 0.50-4.00 [facility] ([facility]) Source of Specimen: Urine Supersaturation CaP 0.08 0.50-2.00 MEDEN T ([facility]) Source of Specimen: Urine Supersaturation Uric Acid 0.52 [facility] ([facility] [facility]) Source of Specimen: Urine Procedure Social History Code Duration Value Status Description Data Source(s ) Smoking 03/02/2020 12:00:00 AM EST Former Cigarette Smoker com pleted Former Cigarette Smoker [facility] ([facility]) Alcohol intake 02/25/2020 12:00:00 AM EST No completed [facility] Cigarette pack-years 02/25/2020 12:00:00 AM EST UNK completed [facility] Cigarettes smoked current (pack per day) - Reported 02/25/20 20 12:00:00 AM EST UNK completed [facility] Smoking 02/25/2020 12:00:00 AM EST Former smoker completed Former smoker [facility] Smoking 01/22/2020 05:47:00 PM EDT Former Smoker completed Former Smoker [facility] Smoking 01/20/2020 02:06:00 PM EDT Former Smoker completed Former Smoker [facility] Smoking 09/02/2019 12:00:00 AM EDT Patient is a former smoker completed Patient is a former smoker [facility] ([facility]) Vital Signs ID Date Data Source UNK Name Value Range Interpretation Code Description Data Source(s) Body mass index (BMI) [Ratio] 44.7 kg/m2 44.7 k g/m2 [facility] ([facility]) Body height 68 [in_i] 68 [in_i] [facility] 5'8" Body weight 294.00 [lb_av] 294.00 [lb_av] MEDEN T ([facility]) Oxygen saturation in Arterial blood by Pulse oximetry 98 % 98 % [facility] Respiratory rate 16 /min 16 /min [facility] Heart rate 78 /min 78 /min [facility] Diastolic blood pressure 70 mm[Hg] 70 mm[Hg] [facility] Systolic blood pressure 128 mm[Hg] 128 mm[Hg] [facility] Body temperature 98.1 [degF] 98.1 [degF] [facility] ([facility] [place] Body temperature 36.72 Aydee 36.72 Aydee [facility] Body mass index (BMI) [Ratio] 43.79 kg/m2 43.79 kg/m2 [facility] ([facility] [place]) Body weight 130.636 kg 130.636 kg [facility] ([facility] [place]) Body weight 288.00 [lb_av] 288.00 [lb_av] MEDEN T ([facility] [place]) Body height 67.99 [in_i] 67.99 [in_i] [facility]NATALY ([facility] [place]) 5'7.99" Body mass index (BMI) [Ratio] 43.79 kg/m2 43.79 kg/m2 [facility] Body weight 130.636 kg 130.636 kg [facility] Body height 172.7 cm 172.7 cm [facility] Heart rate 68 /min 68 /min [facility] ([facility] [place]) Diastolic blood pressure 85 mm[Hg] 85 mm[Hg] [facility] ([facility] [place]) Systolic blood pressure 115 mm[Hg] 115 mm[Hg] M EDENT ([facility] [place]) Body mass index (BMI) [Ratio] 45.3 kg/m2 45.3 k g/m2 [facility] ([facility] [place]) Body weight 135.173 kg 135.173 kg [facility] ([facility] [place]) Body weight 298.00 [lb_av] 298.00 [lb_av] MEDEN T ([facility] [place]) Body height 68 [in_i] 68 [in_i] [facility] ([facility] [place]) 5'8" Body temperature 36.5 aydee Normal (applies to non-numeric results) 36.5 aydee [facility] Respiratory rate 19 min Normal (applies to non-numeric results) 19 min [facility] Heart rate 63 min Normal (applies to non-numeric resul ts) 63 min [facility] Diastolic blood pressure 80 mm[Hg] Normal (applies to non-numeric results) 80 mm[Hg] [facility] Systolic blood pressure 156 mm[Hg] Normal (applies t o non-numeric results) 156 mm[Hg] [facility] Deprecated Oxygen saturation in Capillary blood by Oximetry 96 % Normal (applies to non-numeric results) 96 % [facility] Body weight Measured 134.717 kg Normal (applies to n on-numeric results) 134.717 kg [facility] Body height 171.9072 cm Normal (applies to non-numeric res ults) 171.9072 cm [facility] Body mass index (BMI) [Ratio] 45.16 kg/m2 No rmal (applies to non-numeric results) 45.16 kg/m2 [facility] Body temperature 36.8 aydee Normal (applies to non-numeric results) 36.8 aydee [facility] Respiratory rate 20 min Normal (applies to non-numeric results) 20 min [facility] Heart rate 73 min Normal (applies to non-numeric resul ts) 73 min [facility] Diastolic blood pressure 72 mm[Hg] Normal (applies to non-numeric results) 72 mm[Hg] [facility] Systolic blood pressure 116 mm[Hg] Normal (applies t o non-numeric results) 116 mm[Hg] [facility] Body weight Measured 118.4 kg Normal (applies to n on-numeric results) 118.4 kg [facility] Body height 171.9072 cm Normal (applies to non-numeric res ults) 171.9072 cm [facility] Deprecated Oxygen saturation in Capillary blood by Oximetry 97 % Normal (applies to non-numeric results) 97 % [facility] Body temperature 97.0 [degF] 97.0 [degF] [facility] ([facility] [place] Heart rate 73 /min 73 /min [facility] ([facility] [place]) Diastolic blood pressure 84 mm[Hg] 84 mm[Hg] [facility] ([facility] [place]) Systolic blood pressure 133 mm[Hg] 133 mm[Hg] M EDENT ([facility] [place]) Body mass index (BMI) [Ratio] 45.3 kg/m2 45.3 k g/m2 [facility] ([facility] [place]) Body weight 135.173 kg 135.173 kg [facility] ([facility] [place]) Body weight 298.00 [lb_av] 298.00 [lb_av] MEDEN T ([facility] [place]) Body height 68 [in_i] 68 [in_i] [facility] ([facility] [place]) 5'8" Diastolic blood pressure--sitting 68 mm[Hg] 68 mm[Hg] [facility] ([facility]) large cuff, Ra Systolic blood pressure--sitting 122 mm[Hg] 122 mm[Hg] [facility] ([facility]) large cuff, Ra Heart rate 65 /min 65 /min [facility] ([facility]) Body mass index (BMI) [Ratio] 44.8 kg/m2 44.8 k g/m2 [facility] ([facility]) Body height 68 [in_i] 68 [in_i] [facility] 5'8" Body weight 295.00 [lb_av] 295.00 [lb_av] [facility]EN T ([facility])
--- NOTE | 2020-04-21 16:42 | REP ---
INDICATION: Coronavirus workup. COMPARISON: 08/15/2019 TECHNIQUE: Portable FINDINGS: The technique utilized in obtaining the radiograph has magnified the cardiac silhouette and accentuated the interstitial markings. There is mild cardiomegaly accentuated by technique.. There is a new patchy opacity in the left retrocardiac region. Once again, lung sinclair are markedly hypoexpanded. Note is again made of previous median sternotomy. There is no change in the osseous structures. IMPRESSION: New left retrocardiac opacities pneumonia versus subsegmental atelectatic change. Consider PA and lateral views of the chest. <Electronically signed by To Zaidi > 04/21/20 1242
--- OUTSIDE RECORDS SUMMARY | 2020-04-21 17:07 | CCD ---
Author Author [facility] Organization [facility] Address Unknown Phone Unavailable Care Team Providers Care Kettle Skimmer Name Role Phone FIGUEROA, Ranjit SR MD [...] A REMBERTO MD Unavailable Unavailable EMERTON, A REMBEROT MD Unavailable Unavailable EMERTON, A REMBERTO MD [...] McHone, R Raji ORTIZ Unavailable Unavailable Tate Wynne MD Unavailable Unavailable Ttae Wynne MD Unavailable Unavailable Tate Wynne MD [...] PREET ORTIZ Unavailable Unavailable Khanna, A Soledad DEPUTY ADMINISTRATOR Unavailable Unavailable Khanna, A Soledad DEPUTY ADMINISTRATOR Unavailable Unavailable Khanna, A Soledad DEPUTY ADMINISTRATOR Unavailable Unavailable Khanna, A Soledad DEPUTY ADMINISTRATOR Unavailable Unavailable Khanna, A Soledad DEPUTY ADMINISTRATOR Unavailable Unavailable Khanna, A Soledad DEPUTY ADMINISTRATOR Unavailable Unavailable Khanna, A Soledad DEPUTY ADMINISTRATOR Unavailable Unavailable Khanna, A Soledad DEPUTY ADMINISTRATOR Unavailable Unavailable Khanna, A Soledad DEPUTY ADMINISTRATOR Unavailable Unavailable Khanna, A Soledad DEPUTY ADMINISTRATOR Unavailable Unavailable Khanna, A Soledad DEPUTY ADMINISTRATOR Unavailable Unavailable Khanna, A Soledad DEPUTY ADMINISTRATOR Unavailable Unavailable Khanna, A Soledad DEPUTY ADMINISTRATOR Unavailable Unavailable Khanna, A Soledad DEPUTY ADMINISTRATOR Unavailable Unavailable Khanna, A Soledad DEPUTY ADMINISTRATOR Unavailable Unavailable Khanna, A Soledad DEPUTY ADMINISTRATOR Unavailable Unavailable Khanna, A Soledad DEPUTY ADMINISTRATOR Unavailable Unavailable Khanna, A Soledad DEPUTY ADMINISTRATOR Unavailable Unavailable Khanna, A Soledad DEPUTY ADMINISTRATOR Unavailable Unavailable Khanna, A Soledad DEPUTY ADMINISTRATOR Unavailable Unavailable Khanna, A Soledad DEPUTY ADMINISTRATOR Unavailable Unavailable Khanna, A Soledad DEPUTY ADMINISTRATOR Unavailable Unavailable Khanna, A Soledad DEPUTY ADMINISTRATOR Unavailable Unavailable Khanna, A Soledad DEPUTY ADMINISTRATOR Unavailable Unavailable Khanna, A Soledad DEPUTY ADMINISTRATOR Unavailable Unavailable Khanna, A Soledad DEPUTY ADMINISTRATOR Unavailable Unavailable Khanna, A Soledad DEPUTY ADMINISTRATOR Unavailable Unavailable Khanna, A Soledad DEPUTY ADMINISTRATOR Unavailable Unavailable Khanna, A Soledad DEPUTY ADMINISTRATOR Unavailable Unavailable Khanna, A Soledad DEPUTY ADMINISTRATOR Unavailable Unavailable Khanna, A Soledad DEPUTY ADMINISTRATOR Unavailable Unavailable Khanna, A Soledad DEPUTY ADMINISTRATOR Unavailable Unavailable Khanna, A Soledad DEPUTY ADMINISTRATOR Unavailable Unavailable Khanna, A Soledad DEPUTY ADMINISTRATOR Unavailable Unavailable Khanna, A Soledad DEPUTY ADMINISTRATOR Unavailable Unavailable Khanna, A Soledad DEPUTY ADMINISTRATOR Unavailable Unavailable Khanna, A Soledad DEPUTY ADMINISTRATOR Unavailable Unavailable Khanna, A Soledad DEPUTY ADMINISTRATOR Unavailable Unavailable Khanna, A Soledad DEPUTY ADMINISTRATOR Unavailable Unavailable Khanna, A Soledad DEPUTY ADMINISTRATOR Unavailable Unavailable Khanna, A Soledad DEPUTY ADMINISTRATOR Unavailable Unavailable Khanna, A Soledad DEPUTY ADMINISTRATOR Unavailable Unavailable Khanna, A Soledad DEPUTY ADMINISTRATOR Unavailable Unavailable Khanna, A Soledad DEPUTY ADMINISTRATOR Unavailable Unavailable Khanna, A Soledad DEPUTY ADMINISTRATOR Unavailable Unavailable Khanna, A Soledad DEPUTY ADMINISTRATOR Unavailable Unavailable Khanna, A Soledad DEPUTY ADMINISTRATOR Unavailable Unavailable Khanna, A Soledad DEPUTY ADMINISTRATOR Unavailable Unavailable Khanna, A Soledad DEPUTY ADMINISTRATOR Unavailable Unavailable Derosalia, R Sarthak ORTIZ Unavailable [...] R Sarthak ORTIZ Unavailable Unavailable Derosalia, R Sarthka ORTIZ Unavailable Unavailable Derosalia, R Sarthak ORTIZ [...] Sarthak ORTIZ Unavailable Unavailable Derosalia, R Sarthak ORTZI Unavailable Unavailable Derosalia, R Sarthak ORTIZ Unavailable Unavailable Derosalia, R Sarthak ORTIZ Unavailable Unavailable Derosalia, R Sarthak ORTIZ Unavailable Unavailable Derosalia, R Sarthak ORTIZ Unavailable Unavailable Derosalia, R Sartahk ORTIZ Unavailable Unavailable Maring, Mamadou PA Unavailable [...] Manuel) MD Unavailable Unavailable Tin, Keturah Rozina (Victorm Anuel) MD Unavailable Unavailable Tin, Keturah Rozina (Victor [...] Unavailable Nilay PRIDE MD Unavailable Unavailable Nilay PIRDE MD Unavailable Unavailable Nilay PRIDE MD Unavailable [...] Unavailable Nilay PRIDE MD Unavailable Unavailable Nilay PRIED MD Unavailable Unavailable Nilay PRIDE MD Unavailable [...] is protected by Article 27-F of the [facility] Public Health law. If you continue you may have access to information: Regarding HIV / AIDS; Provided by facilities licensed or operated by the [facility] Office of Mental Health; or Provided by the [facility] Office for People With Developmental Disabilities. If such information is present, then the following [facility] mandated warning applies: This information has been [...] law may result in a fine or halfway sentence or both. A general authorization for the release of medical or other information is NOT sufficient authorization for further disc losure. Allergies and Adverse Reactions Type Description Substance Reaction Status Data Source(s ) Adverse Reaction Adverse Reaction NSAIDS [facility] ([facility]) Propensity to adverse reactions NSAIDS Nsaids Acti ve [facility] Family History Family Member Name Family Member Gender Family Member Status Date o f Status Description Data Source(s) Unknown Unknown Problem [facility] ([facility] Unknown Female Problem [facility] Unknown Female Problem [facility] Unknown Female Problem [facility] Unknown Female Problem [facility] ) Unknown Female Problem [facility] ([facility]) Encounters Encounter Providers Location Date Indications Data Source(s ) O Attender: Mamadou GREEN 04/13/19 12:34:34 PM EST - 04/13/2020 01:24:27 PM EST [facility] ([facility] ) Outpatient Referrer: Sarthak Montana MD 03/08/2020 11:25: 52 AM EST [facility] Outpatient Referrer: Sarthak Montana MD MOB-MOB.PAT 09:49:23 AM EST - 02/21/2020 09:49:27 AM EST [facility] Inpatient Attender: Sarthak Pemberton DAttender: Gregory Frazier Admitter: Sarthak Montana MDReferrer: Sarthak Montana MD [email or web address] 02/16/2020 0 9:55:13 AM EST - 02/25/2020 01:45:00 PM EST [facility] Patient discharged. Outpatient Referrer: Sarthak Montana MD 02/02/2020 11:42: 03 AM EST [facility] Outpatient Attender: Sarthak Montana MD [facility]/ [facility] 02/02/2020 11:40:00 AM EST [facility] [place] Attender: QUINTON PRIDE MD 01/22/2020 0 6:37:49 PM EDT Lab [facility] Inpatient Attender: QUINTON PRIDE MDAdmitt er: QUINTON PRIDE MD 01/22/2020 03:40:00 PM EDT - 01/25/2020 04:48:00 PM ES T SEPSIS FROM URINARY TRACT INFECTION FEVER S/P URETERAL STENT [facility] SEPSIS FROM URINARY TRACT INFECTION FEVE R S/P URETERAL STENT Patient discharged. Inpatient Attender: QUINTON PRIDE MD 01/22/2020 0 3:40:00 PM EDT [facility] ( in Healthcare facility) Attender: LA PRIDE MDAdmitter: QUINTON PRIDE MDConsultant: REMBERTO MARTI MD 01/22/2020 03:40:00 PM EDT [facility] Inpatient Attender: Raji Wynne MD 01/20/2020 01:27:5 0 PM EDT Lab [facility] D Attender: Raji Wynne MD 11:54:00 AM EDT - 01/21/2020 02:23:00 PM EDT [facility] Inpatient Attender: Raji Wynne MDAdmitter: Raji Sharp MD 01/20/2020 11:54:00 AM EDT - 01/21/2020 02:23:00 PM EDT RENAL CALCULUS HYDRONEPHROSIS [facility] RENAL CALCULUS HYDRONEPHROSIS Patient discharged. [place] ( in Healthcare facility) Attender: Klaus Wynne MDAdmitter: Raji Wynne MDConsultant: REMBERTO MARTI MD 01/20/2020 11:54:00 AM EDT [facility] Outpatient Attender: SHARON GREEN Physical Therapy 12/30/2019 0 9:15:00 AM EDT [facility] ([facility]) Office Visit Attender: SHARON GREEN Physical Therapy 2019 08:30:00 AM EDT [facility] ([facility]) Outpatient Attender: SHARON GREEN Physical Therapy 11/14/2019 0 5:30:00 PM EDT [facility] ([facility]) Outpatient Attender: SHARON GREEN Physical Therapy 11/07/2019 1 1:00:00 AM EDT [facility] ([facility]) Attender: Keturah Gordon (Jack) MDReferrer: PREET CATALAN MD 10/03/2019 08:20:07 PM EDT [facility] Outpatient Attender: Soledad Khanna NP [facility] 09/22/2019 02:30:00 PM EDT [facility] Outpatient Attender: Shanae GREEN Main Office 09/02/2019 10:15:0 0 AM EDT [facility] ([facility]) Outpatient Referrer: Sarthak Montana MD 05/21/2019 12:07: [address] [facility] Outpatient Attender: Soledad Hernandez/ Isaak landon 05/21/2019 12:00:00 PM EST [facility] ([facility] Medications Medication Brand Name Start Date Product Form Dose Route Admi nistrative Instructions Pharmacy Instructions Status Indications Reaction Description Data Source(s) Blood Pressure Monitor Automatic/Arm 03/15/2020 12:00:00 AM EST active [facility] ([facility]) Tamsulosin hydrochloride 0.4 MG Oral Capsule Tamsulosin HCL 03/14/2020 12:00:00 AM EST ORAL active [facility] ([facility]) Sulfamethoxazole 800 MG / Trimethoprim 160 MG Oral Tablet [B actrim] Bactrim DS 03/08/2020 12:00:00 AM EST ORAL active [facility] ([facility]) normal saline flush 0.9 % injection 3 mL [id number] 02/25/2020 02:00:00 PM EST 3 mL Intravenous active 3 mL , Intravenous, Every 8 hours (scheduled), First dose on Sun02/25/20 at 1400, PACU (only)
flush per protocol, D/C Main IV fluid if appropriate
[facility] Medication administered onsite ondansetron (ZOFRAN) injection 4 mg [id number] 02/25/2020 12:07:2 3 PM EST 4 mg Intravenous active 4 mg, In travenous, Once as needed, nausea, vomiting, Starting Sun02/25/20 at 1207, For 1 dose, PACU (only)
If not given in last 4 hours
[facility] Medication administered onsite Albuterol 0.833 MG/ML / Ipratropium Brom horacio 0.167 MG/ML Inhalant Solution ipratropium-albuterol (DUO-NEB) 0.5-2.5 mg/mL nebulizer solution 3 mL ipratropium-albuterol (DUO-NEB) 0.5-2.5 mg/mL nebulizer solution 3 mL 02/25/2020 12:07:23 PM EST 3 mL Inhalation active 3 mL, Inhalation, Once as needed, shortness of breath, Starting Sun02/25/20 at 1207, For 1 dose, PACU (only) [facility] Medication administered onsite 10 ML Atropine [...] or 0.04 mg/kg. Max of 6 doses
[facility] Medication administered onsite HYDROmorphone (DILAUDID) injection 0.5 mg [id number] 02/25/2020 12:07:22 PM EST 0.5 mg Intravenous active 0.5 mg, Intravenous, Every 5 min PRN, severe pain (7-10), Starting Sun02/25/20 at 1207, For 5 doses, PACU (only) [facility] Medication administered onsite fentaNYL Citrate (PF) (SUBLIMAZE) injection 25 mcg [id number] 02/25/2020 12:07:22 PM EST 25 ug Intravenous active 25 mcg, Intravenous, Every 5 min PRN, moderate pain (4 to 6), Starting Sun02/25/20 at 1207, For 5 doses, PACU (only) [facility] Medication administered onsite normal saline flush 0.9 % injection 3 mL [id number] 02/25/2020 10:00:00 AM EST 3 mL Intravenous active 3 mL , Intravenous, Every 8 hours (scheduled), First dose on Sun02/25/20 at 1000, Pre-op
Rapid push positive pressure flushing shall be performed with a 10 cc normal saline syringe to check the PATENCY of a PIV site prior to any infusion therapy initiation unless resistance is met.
[facility] Medication administered onsite tramadol hydrochloride 50 MG Oral Tablet Tramadol HCL 11/07/2019 12:00:00 AM EDT active [facility] Triamcinolone Acetonide 1 MG/ML Topical Cream Triamcinolone Acetonide 09/01/2019 12:00:00 AM EDT active [facility] ([facility]) Nystatin 100 UNT/MG Topical Powder [Nyamyc] Nyamyc 09/01/2019 12:00:00 AM EDT active [facility] ([facility]) Betamethasone 0.5 MG/ML / Clotrimazole 10 MG/ML Topica l Cream Clotrimazole/Betamethasone Dipropionate 09/01/2019 12:00:00 AM EDT active [facility] ([facility]) sildenafil 100 MG Oral Tablet [Viagra] Viagra 09/01/2019 12:00:00 AM EDT ORAL active [facility] ([facility]) Insurance Providers Payer name Policy type / Coverage type Policy ID Covered green party ID Covered green party's relationship to whitfield Policy [place] Plan Information [facility] [id number] SP [id number] [facility] Commercial Insurance Co. [id number] Fe f [id number] SELF PAY ONLY [id number] SP [id number] [facility] MEDICARE [id number] Fe [id number] INSURANCE COVID-19 COVID Fe C OVID [facility] MEDICARE [id number] Fe [id number] [facility] MEDICARE [id number] INSURANCE COVID-19 [id number] [facility] MEDICARE [id number] MEDICARE NICOLE [id number] S [id number] [facility] HEA [id number] S [id number] [facility] HEALTH PLANS CLAIMS DEPT [id number] [facility] [id number] SP [id number] [facility] C[facility] [id number] SP [id number] [facility] MEDICARE [id number] Fe [id number] MVP PREMIER EXCHANGE [id number] Fe [id number] MEDICARE [id number] Fe [id number] MVP [id number] Fe [id number] MVP [id number] Fe [id number] WELLCARE MEDICARE PI PI Wellcare MCR - To Ppo Commercial [id number] Self [id number] MVP Indemnity Commercial [id number] Self [id number] Wellcare MCR - To Ppo Commercial [id number] Self [id number] Wellcare-Todays Opts Ppo Commercial [id number] Self [id number] MVP Health Plan Medigap Part B [id number] Family Dependent [id number] Wellcare-Todays Opts Ppo Commercial [id number] Self [id number] MVP PREMIER EXCHANGE [id number] Fe [id number] MVP Health Plan Health Maintenance Organization (HMO) [id number] Family Dependent [id number] MEDICARE [id number] Fe [id number] MEDICARE C [id number] S [id number] A MVP HEALTH CARE O [id number] P [id number] MVP Indemnity Commercial [id number] Self [id number] MEDICARE [id number] Fe [id number] A MVP HEALTH CARE HEA [id number] SP [id number] UNAVAILABLE UNAVAILA BLE MEDICARE MCA [id number] S [id number] A [employer] HE[employer] CARE HEA [id number] SP [id number] MEDICARE PI PI MVP PREMIER EXCHANGE PI PI MEDICARE [id number] SP [id number] A MVP HEALTH CARE [id number] 80 [id number] MVP H [id number] Self [id number] MVP H [id number] Self [id number] MEDICARE A [id number] Self [id number] A [employer] Insurance Commercial [id number] Family Dependent [id number] [place] Medigap Part B [id number] Family Depend ent [id number] [place] Medigap Part B [id number] [place] Medigap Part B [id number] Family Depend ent [id number] MVP (pr) Commercial [id number] Family Dependent [id number] MVP (pr) Commercial [id number] Family Dependent [id number] MVP H [id number] Self [id number] MVP [id number] Fe [id number] [place] Insurance Commercial [id number] Family Dependent [id number] BS [place] Medigap Part B [id number] Family Depend ent [id number] [place] Medigap Part B [id number] BS [place] Medigap Part B [id number] Family Depend ent [id number] MVP (pr) Commercial [id number] Family Dependent [id number] [employer] Insurance Commercial [id number] Family Dependent [id number] BS [place] Medigap Part B [id number] Family Depend ent [id number] [place] Medigap Part B [id number] BS [place] Medigap Part B [id number] Family Depend ent [id number] MVP (pr) Commercial [id number] Family Dependent [id number] MVP HEALTH CARE [id number] SP [id number] MEDICARE [id number] SP [id number] A MVP HEALTH CARE [id number] SP [id number] MVP PREMIER EXCHANGE [id number] Fe [id number] MVP HEALTH CARE [id number] SP [id number] MVP Indemnity Commercial Self MVP PREMIER EXCHANGE [id number] Fe [id number] MVP Cigna Ppo Commercial Family Dependent MVP Gold Commercial Family Dependent BCBS [place] PPO [id number] EXCELLUS BCBS B [id number] P [id number] MVP (pr) Commercial Family Dependent [place] Insurance Commercial Family Dependent BS [place] Medigap Part B Family Dependent [place] Medigap Part B [place] Commercial Family Dependent [id number] Problems, Conditions, and Diagnoses Code Display Name Description Problem Type Effective Dates Data Source(s) N20.1 Calculus of ureter Calculus of ureter Diagnosis 04/2019 08:17:00 AM EST [facility] U07.1 COVID-19 COVID-19 Diagnosis 02/21/2020 09:49:23 AM ES T [facility] Surgeries/Procedures Procedure Description Date Indications Data Source(s) CYSTO W/SIMPLE REMOVAL STONE & STENT 03/08/2020 12:00: 00 AM EST [facility] ([facility]) FL RETROGRADE PYELOGRAM RIGHT FL RETROGRADE PYELOGRAM RIGHT S TAT 02/25/2020 1:02 PM EST 02/25/2020 06:02:09 PM EST [facility] GLUC BLD GLUC MNTR DEV CLEARED FDA SPEC HOME USE POCT GLUCOSE Routine 02/25/2020 12:51 PM EST 02/25/2020 05:51:00 PM EST [facility] GLUC BLD GLUC MNTR DEV CLEARED FDA SPEC HOME USE POCT GLUCOSE Routine 02/25/2020 9:27 AM EST 02/25/2020 02:27:00 PM EST [facility] CYSTO W/INSERT URETERAL STENT 02/25/2020 12:00:[address] [facility] ([facility]) CYSTO W/URETEROSCOPY W/RMVL/MANJ STONES 02/25/2020 12: 00:00 AM EST [facility] ([facility]) CYSTO W/URETEROSCOPY W/LITHOTRIPSY 02/25/2020 12:00:00 AM EST [facility] ([facility]) Echocardiography, Tranthoracic Real-Time Image Documentation 01/23/2020 12:00:00 AM EDT [facility] ([facility]) Electrocardiogram Interpretation & Report Only 020 12:00:00 AM EDT [facility] ([facility]) CYSTO W/INSERT URETERAL STENT 01/20/2020 12:00:00 AM E DT [facility] ([facility]) CT ABDOMEN & PELVIS W/O CONTRAST MATERIAL 01/20/2020 1 2:00:00 AM EDT [facility] ([facility]) X-RAY URINARY TRACT EXAM WITH CONTRAST MATERIAL 2019 12:00:00 AM EDT [facility] ([facility]) Physical Therapy Eval - Low Complexity 01/07/2020 12:0 0:00 AM EDT [facility] ([facility] RADEX ANKLE COMPLETE MINIMUM 3 VIEWS 12/30/2019 12:00: 00 AM EDT [facility] ([facility]) RADEX ANKLE COMPLETE MINIMUM 3 VIEWS 12/05/2019 12:00: 00 AM EDT [facility] ([facility]) FX Lateral Malleolus (Distal Fibula) W/O Manipulation 11/14/2019 12:00:00 AM EDT [facility] ([facility]) RADEX SHOULDER COMPLETE MINIMUM 2 VIEWS 11/14/2019 12: 00:00 AM EDT [facility] ([facility]) RADEX ANKLE COMPLETE MINIMUM 3 VIEWS 11/14/2019 12:00: 00 AM EDT [facility] ([facility]) RADEX SHOULDER COMPLETE MINIMUM 2 VIEWS 11/07/2019 12: 00:00 AM EDT [facility] ([facility]) RADEX ANKLE COMPLETE MINIMUM 3 VIEWS 11/07/2019 12:00: 00 AM EDT [facility] ([facility] ) MYOCARDIAL SPECT MULTIPLE STUDIES 09/29/2019 12:00:00 AM EDT [facility] ([facility]) CV STRS TST XERS&/OR RX CONT ECG PHYS SI&R 09/29/2019 12:00:00 AM EDT [facility] ([facility]) US RETROPERITONEAL REAL TIME W/IMAGE COMPLETE 09/22/19 12:00:00 AM EDT [facility] ([facility]) US RETROPERITONEAL REAL TIME W/IMAGE COMPLETE 09/22/19 12:00:00 AM EDT [facility] ([facility]) ECG ROUTINE ECG W/LEAST 12 LDS W/I&R 09/02/2019 12:00: 00 AM EDT [facility] ([facility]) Results ID Date Data Source [id number] 04/13/2020 12:00:00 AM EST [facility] Name Value Range Interpretation Code Description Data Daphney rce(s) Supporting Document(s) Carestart Rapid COVID Antigen Test Positive [facility] This lab was reported by Madeline altamirano. ID Date Data Source [id number] 04/13/2020 12:00:00 AM EST [facility] Name Value Range Interpretation Code Description Data Daphney rce(s) Supporting Document(s) SARS-CoV-2 (COVID-19) RNA [Presence] in Respiratory specimen by [facility] with probe detection Not Detected [facility] This lab was ordered by [facility] and reported by [employer] ID Date Data Source [id number] 03/30/2020 12:00:00 AM EST [facility] Name Value Range Interpretation Code Description Data Daphney rce(s) Supporting Document(s) SARS coronavirus 2 RNA Not Detected [facility] This lab was ordered by [facility] and rep orted by [facility]. ID Date Data Source [id number] 03/08/2020 12:43:00 PM EST [facility] ([facility] Name Value Range Interpretation Code Description Data Daphney rce(s) Supporting Document(s) Glucose [Presence] in Urine Laboratory test result [facility] ([facility]) Protein [Presence] in Urine by Test strip Laboratory test result [facility] ([facility]) Ua Nitrite Laboratory test result [facility] ([facility]) Blood [Presence] in Urine by Visual Laboratory test result [facility] ([facility]) Ua Leuko Laboratory test result [facility] ([facility]) Color of Urine Laboratory test result [facility] ([facility]) Ketones [Presence] in Urine by Test strip Laboratory test result [facility] ([facility]) Clarity of Urine Laboratory test result [facility] ([facility]) Ua Specific [place] 1.015 1.003-1.030 MEDE NT ([facility]) Bilirubin.total [Presence] in Urine by Test strip Laboratory test res ult [facility] ([facility]) pH of Urine by Test strip 5.5 5.0-7.5 [facility] ([facility]) Urobilinogen [Mass/volume] in Urine by Test strip 0.2 E.U./dL 0.0-1.0 [facility] ([facility]) ID Date Data Source [id number] 03/08/2020 11:28:00 AM EST [facility]RAY ABDOMEN KUBCLINICAL HISTORY: [...] rce(s) Supporting Document(s) ID Date Data Source [id number] 02/25/2020 07:26:00 PM EST [facility] ([facility] Name Value Range Interpretation Code Description Data Daphney rce(s) Supporting Document(s) Laboratory test finding (navigational concept) 140 mg/dL 70-99 [facility] ([facility]) PERFORMED BY [facility]ICAL STAFF ID Date Data Source [id number] 02/25/2020 01:55:29 PM EST [address] [address]Vgqfnde Name: JOSE BRUNOB: 1955Sex: MOrdering Provider: SARTHAK STRANGEuthtim Prov: SARTHAK PATRICIAefstorm Provider: Procedure Performed: FL RETROGRADE PYELOGRAM RIGHTExam Date: 02/25/2020 13:02MRN: [id number] Number: [id number] Class: InpatientAccount #: [id number] for Exam: Right ureteral stone [N20.1]Technique: Fluoroscopy with no digital spot images obtained.Fluoroscopy time: 11 SecondsNumber of Spot Images: 0Comparison: NoneFindings: C-arm was performed in OR. 7 spot radiographs are obtained. Fluoroscopic time: 11.2 seconds. There is placement of a ureteral stent.IMPRESSION: C-arm in OR as described.Report electronically signed by: JAMES CARBAJAL On 02/25/2020 1:55 PMWorkstation ID: [id number] Name Value Range Interpretation Code Description Data Daphney rce(s) Supporting Document(s) ID Date Data Source [id number] 02/25/2020 02:26:46 PM EST [facility] [facility] [place] Name Value Range Interpretation Code Description Data [facility] rce(s) Supporting Document(s) POC NOVA GLU 140 mg/dL (70-99) H [facility] [place] [facility] [place] PERFORMED BY [facility] CLINICAL STAFF ID Date Data Source [id number] 02/25/2020 11:56:00 AM EST [facility] ([facility]oc iated [facility]) Name Value Range Interpretation Code Description Data [facility] rce(s) Supporting Document(s) Composition in Stone Laboratory test result [facility] ([facility]ated [facility]) Calculi composed primarily of: 90% calcium oxalate [...] composition determined by FTIR analysis. Performed By: [place] [address] Ingot Car Operator: Ny Mckeon MD Size [Entitic volume] of Stone Laboratory test result [facility] ([facility]) Unit: mm Number of Stones 1 [facility] ([facility]oc iated [facility] Director [facility]) Weight of Unspecified specimen 166 mg [facility] ([facility]ated [facility]) Appearance of Stone Laboratory test result [facility] ([facility]ated [facility]) Specimen consists of a single, large, brown, irregular calculus. ID Date Data Source [id number] 02/29/2020 07:49:20 AM EST [facility] [place] [facility] [place] Name Value Range Interpretation Code Description Data [facility] rce(s) Supporting Document(s) COMPOSITION [facility] [place] [facility] See Note Calculi composed primarily of: [...] by FTIR analysis. Performed By: [facility] [address] [place] [id number] Ingot Car Operator: Ny Mckeon MD MASS 166 mg [facility] CALCULI NUMBER 1 [facility] CALCULI SIZE [facility] [place] [facility] [place] > 9Unit: mm CALCULI DESCRIPTION [facility] [place] See Note Specimen consists of a single, large, brown, irregular calculus. ID Date Data Source [id number] 02/25/2020 11:49:00 AM EST [facility] INFORMATIONPatient MRN Name Date of Age Gend*PT [id number] Alexei Villatoronis Marco Antonio 1955 64 years M SDCXPT Location Ad[facility] Date/[facility] --- Sarthak Montana MD([id number]) EPI ID CSN Admitting Provider [id number] Sarthak Montana MD([id number])OPERATIVE NOTEPatient Name: Jose VillatoroMedical Record Number: [id number] of Procedure: 02/25/2020Surgeon: Sarthak Montana M.D.Pre-operative diagnosis: right ureteral calculiPost-operative diagnosis: SameProcedure: cystoscopy, right ureteroscopy, basket stone removal, right ureteralstent exchangeAnesthesia: GABlood/fluids administered: crystalloidEstimated blood loss: minimalComplications: NoneSpecimens: right ureteral calculiDrains: Right 6 Turkish multi-length ureteral stentProcedure:Informed consent was obtained. Antibiotics [...] a w blanka in place.A right 6 Turkish multi-length ureteral stent was placed using cystoscopic andfluoroscopic guidance without difficulty.The bladder was emptied and the scope was withdrawn.There were no surgical complications.Sarthak Montana M.D.Date: 02/25/2020Time: 11:46 AM Name Value Range Interpretation Code Description Data Daphney rce(s) Supporting Document(s) ID Date Data Source [id number] 02/25/2020 10:06:34 AM EST [facility]FORMATIONPatient MRN Name Date of Age Gend*PT [id number] Jose Villatoro 1955 64 years M SDCXPT Location Admission Date/Time Visit [facility] --- Sarthak Montana MD([id number]) EPI ID [facility] Admitting Provider [id number] Sarthak Montana MD([id number])Pre-Procedure History and Physical:The history and physical were reviewed and the patient was examined.Reviewed and updated. No changes.Sarthak Montana MD02/24/2010:06 AM Name Value Range Interpretation Code Description Data Daphney rce(s) Supporting Document(s) ID Date Data Source [id number] 02/25/2020 09:27:00 AM EST [facility] ([facility] [place]) Name Value Range Interpretation Code Description Data Daphney rce(s) Supporting Document(s) Glucose [Mass/volume] in Capillary blood by Glucometer 140 mg/dL 70- 99 [facility] ([facility] [place]) PERFORMED BY [facility] CLINICAL STAFF ID Date Data Source [id number] 02/25/2020 09:30:08 AM EST [facility] Name Value Range Interpretation Code Description Data Daphney rce(s) Supporting Document(s) POC NOVA GLU 143 mg/dL (70-99) H [facility] [place] [facility] [place] PERFORMED BY [facility] CLINICAL STAFF ID Date Data Source [id number] 02/21/2020 09:40:00 AM EST [facility] Name Value Range Interpretation Code Description Data Daphney rce(s) Supporting Document(s) SARS coronavirus 2 RNA [facility] This lab was ordered by [facility] and reported by [facility]. ID Date Data Source [id number] 02/22/2020 05:08:25 PM EST Lab [facility] Name Value Range Interpretation Code Description Data Daphney rce(s) Supporting Document(s) SARS-COV-2 [facility] Not DetectedReference range: Not Detecte d This nucleic acid amplification test was developed and its performance characteristics determined by [employer]. Nucleic acid amplification tests include PCR and [...] detected) result in this assay. Performed At: [employer] [place], [place] [id number] Johnny Church PhD Ph:[phone] ID Date Data Source [id number] 02/02/2020 12:54:00 PM EST [facility] ([facility] [place]) Name Value Range Interpretation Code Description Data Daphney rce(s) Supporting Document(s) Protein [Presence] in Urine by Test strip Laboratory test result [facility] ([facility] [place]) Glucose [Presence] in Urine Laboratory test result [facility] ([facility] [place]) Ua Nitrite Laboratory test result [facility] ([facility] [place]) Blood [Presence] in Urine by Visual Laboratory test result [facility] ([facility] [place]) Ua Leuko Laboratory test result [facility] ([facility]) Color of Urine Laboratory test result [facility] ([facility]) Clarity of Urine Laboratory test result [facility] ([facility] [place]) Ketones [Presence] in Urine by Test strip Laboratory test result [facility] ([facility]) Bilirubin.total [Presence] in Urine by Test strip Laboratory test res ult [facility] ([facility]) Ua Specific [place] 1.015 1.003-1.030 [facility] NT ([facility]ated [facility]) pH of Urine by Test strip 5.5 5.0-7.5 [facility] ([facility]) Urobilinogen [Mass/volume] in Urine by Test strip 0.2 E.U./dL 0.0-1.0 [facility] ([facility]) ID Date Data Source [id number] 02/02/2020 11:47:[address] [facility] AssociatesEXAM: XRAY ABDOMEN KUBCLINICAL HISTORY: Calculus [...] rce(s) Supporting Document(s) ID Date Data Source [id number] 01/25/2020 02:17:00 PM EST [facility] (Cardi ology Associates [facility]) Name Value Range Interpretation Code Description Data Daphney rce(s) Supporting Document(s) Sodium 145 [facility] (Cardiology [facility]) Calcium [Mass/volume] in Serum or Plasma 8.0 [facility] ([facility]) Chloride [Moles/volume] in Serum or Plasma 115 [facility] ([facility]) Carbon dioxide, total [Moles/volume] in Serum or Plasma 23 [facility] ([facility]) Potassium [Moles/volume] in Serum or Plasma 3.8 [facility] ([facility]) Creatinine 1.29 0.80-1.30 [facility] ([facility]) Blood Urea Nitrogen 17 7-24 [facility] (Ca rdiology Associates [facility]) Glucose 192 70-99 [facility] (Cardiology A [facility]) Glomerular filtration rate/1.73 sq M.pre dicted [Volume Rate/Area] in Serum or Plasma by Creatinine-based formula (MDRD) 56 [facility] ([facility]) ID Date Data Source [id number] 01/25/2020 02:17:00 PM EST [facility] ([facility]i [facility]) Name Value Range Interpretation Code Description Data Daphney rce(s) Supporting Document(s) Red Blood Count 3.88 4.60-6.10 [facility] (Cardio logy Associates [facility]) White Blood Count 10.1 4.1-11.0 [facility] (Card iology [facility]) Hemoglobin 12.6 13.5-18.0 [facility] ([facility]) Hematocrit 37.6 41.0-53.0 [facility] ([facility]) Platelets 192 150-450 [facility] (Cardiology [facility]) ID Date Data Source [id number] 01/25/2020 06:18:00 AM EST [facility] ([facility] [place]) Name Value Range Interpretation Code Description Data Daphney rce(s) Supporting Document(s) Sodium [Moles/volume] in Serum or Plasma 145 mmol/L 136-145 [facility] ([facility]) Carbon dioxide, total [Moles/volume] in Serum or Plasma 23 mmol/L 22 -31 [facility] ([facility] [place]) Potassium 3.8 mmol/L 3.6-5.2 [facility] (Associ ated Credit Director [facility]) Chloride [Moles/volume] in Serum or Plasma 115 mmol/L 100-108 [facility] ([facility]ated [facility] Director [facility]) Creatinine [Mass/volume] in Serum or Plasma 1.29 mg/dL 0.80-1.30 [facility] ([facility]ated [facility]) Urea nitrogen [Mass/volume] in Serum or Plasma 17 mg/dL 7-24 [facility] ([facility]) Anion gap 3 in Serum or Plasma 7 mmol/L 7-16 [facility] ([facility]ated [facility]) Urea nitrogen/Creatinine [Mass Ratio] in Serum or Plasma 13.2 RATIO 10.0-20.0 [facility] ([facility]ated [facility]) Calcium [Mass/volume] in Serum or Plasma 8.0 mg/dL 8.4-10.2 [facility] ([facility]) Glucose [Mass/volume] in Serum or Plasma 192 mg/dL 70-99 [facility] ([facility]) Glomerular filtration rate/1.73 sq M.pre dicted [Volume Rate/Area] in Serum or Plasma by Creatinine-based formula (MDRD) 56 ml/min/1.73m2 [facility] ([facility]ated [facility]) GFR Interpretation Laboratory test result [facility] ([facility]) <content></content>
<content> </con tent>
<content>NORMAL KIDNEY FUNCTION</content>
[...] formula (MDRD) Laboratory test result [facility] ([facility]ated [facility]) ID Date Data Source [id number] 01/25/2020 06:18:00 AM EST [facility] (Assoc iated [facility]) Name Value Range Interpretation Code Description Data Daphney rce(s) Supporting Document(s) Erythrocytes [#/volume] in Blood by Automated count 3.88 10*6/uL 4.60 -6.10 [facility] ([facility]) Leukocytes [#/volume] in Blood by Automated count 10.1 10*3/uL 4.1-11 .0 [facility] ([facility]) Hematocrit [Volume Fraction] of Blood by Automated count 37.6 % 4 1.0-53.0 [facility] ([facility]) Hemoglobin [Mass/volume] in Blood 12.6 g/dL 13.5-18.0 [facility] ([facility]) Erythrocyte mean corpuscular hemoglobin [Entitic mass] by Automated count 32.3 pg 27.0-32.0 [facility] ([facility] P [facility]essionals [facility]) Erythrocyte mean corpuscular hemoglobin concentration [Mass/volume] by Automated count 33.4 g/dL 32.0-36.0 [facility] ([facility] Medica l Prof[facility]) Erythrocyte mean corpuscular volume [Entitic volume] by Auto mated count 96.8 fL 80.0-95.0 [facility] ([facility] Medical Profe [facility]ionals [facility]) Platelets [#/volume] in Blood by Automated count 192 10*3/uL 150-450 [facility] ([facility]ated [facility]) Platelet mean volume [Entitic volume] in Blood by Automated count 8.8 fL 7.1-10.7 [facility] ([facility] [place]) Erythrocyte distribution width [Ratio] by Automated count 14.2 % 10.5-14.5 [facility] ([facility] [place]) ID Date Data Source [id number] 01/25/2020 07:12:35 AM EST [facility] [place] [facility] Name Value Range Interpretation Code Description Data Daphney rce(s) Supporting Document(s) SODIUM 145 mmol/L (136-145) [facility] [place] [facility] POTASSIUM 3.8 mmol/L (3.6-5.2) [facility] [place] [facility] CHLORIDE 115 mmol/L (100-108) H [facility] [place] [facility] CO2 23 mmol/L (22-31) [facility] [place] [facility] ANION GAP 7 mmol/L (7-16) [facility] [place] [facility] UREA NITROGEN 17 mg/dL (7-24) [facility] [place] [facility] CREATININE 1.29 mg/dL (0.80-1.30) [facility] [place] [facility] BUN/CREAT RATIO 13.2 RATIO (10.0-20.0) [facility] GLUCOSE 192 mg/dL (70-99) H [facility] [place] [facility] CALCIUM 8.0 mg/dL (8.4-10.2) L [facility] [place] [facility] GFR 56 ml/min/1.73m2 (>59) L [facility] [place] [facility] GFR ( AMER) >60 ml/min/1.73m2 (>59) [facility] [place] [facility] GFR INTERPRETATION [facility] --NORMAL KIDNEY FUNCTION OR MILD DISEASE - GFR >OR= 60CHRONIC KIDNEY DISEASE - GFR 15 - 59RENAL FAILURE - GFR <15 Est. GFR calculation based on the MDRDstudy equation, which assumes a steadystate for creatinine. Est. GFR should notbe used for medication dosing. ID Date Data Source [id number] 01/25/2020 06:57:56 AM EST [facility] [place] [facility] [place] Name Value Range Interpretation Code Description Data Daphney rce(s) Supporting Document(s) WBC 10.1 10*3/uL (4.1-11.0) [facility] [place] [facility] [place] RBC 3.88 10*6/uL (4.60-6.10) L [facility] [place] [facility] [place] HGB 12.6 g/dL (13.5-18.0) L [facility] [place] [facility] [place] HCT 37.6 % (41.0-53.0) L [facility] [place] [facility] MCV 96.8 fL (80.0-95.0) H [facility] [place] [facility] MCH 32.3 pg (27.0-32.0) H [facility] [place] [facility] MCHC 33.4 g/dL (32.0-36.0) [facility] [place] [facility] RDW 14.2 % (10.5-14.5) [facility] [place] [facility] [place] PLT 192 10*3/uL (150-450) [facility] [place] [facility] MPV 8.8 fL (7.1-10.7) [facility] [place] [facility] [place] ID Date Data Source [id number] 01/24/2020 09:50:00 AM EDT [facility] [...] hydronephrosis. D7End of diagnostic report for accession: [id number] Interpreted: Juvenal Elmore MDTranscribed: 01/24/2020 09:38 AMSigned: 01/24/2020 09:50 AM Juvenal Elmore MD [facility] # [id number] BILL # [id number] Name Value Range Interpretation Code Description Data Daphney rce(s) Supporting Document(s) ID Date Data Source [id number] 01/24/2020 06:57:00 AM EDT [facility] ([facility]oc iated [facility]) Name Value Range Interpretation Code Description Data Daphney rce(s) Supporting Document(s) Sodium [Moles/volume] in Serum or Plasma 141 mmol/L 136-145 [facility] ([facility]ated [facility]) Potassium 3.7 mmol/L 3.6-5.2 [facility] (Associ ated Credit Director [facility]) Chloride [Moles/volume] in Serum or Plasma 112 mmol/L 100-108 [facility] (Associated [facility]) Carbon dioxide, total [Moles/volume] in Serum or Plasma 21 mmol/L 22 -31 [facility] ([facility]ated [facility]) Anion gap 3 in Serum or Plasma 8 mmol/L 7-16 [facility] ([facility]ated [facility]) Urea nitrogen [Mass/volume] in Serum or Plasma 19 mg/dL 7-24 [facility] ([facility]ated [facility]) Urea nitrogen/Creatinine [Mass Ratio] in Serum or Plasma 13.2 RATIO 10.0-20.0 [facility] ([facility]ated [facility]) Creatinine [Mass/volume] in Serum or Plasma 1.44 mg/dL 0.80-1.30 [facility] ([facility]ated [facility]) Glucose [Mass/volume] in Serum or Plasma 197 mg/dL 70-99 [facility] ([facility]ated [facility]) Glomerular filtration rate/1.73 sq M pre dicted among blacks [Volume Rate/Area] in Serum or Plasma by Creatinine-based formula (MDRD) Laboratory test result [facility] ([facility]ated [facility]) Calcium [Mass/volume] in Serum or Plasma 7.7 mg/dL 8.4-10.2 [facility] ([facility]ated [facility]) Glomerular filtration rate/1.73 sq M.pre dicted [Volume Rate/Area] in Serum or Plasma by Creatinine-based formula (MDRD) 50 ml/min/1.73m2 [facility] ([facility] [place]) GFR Interpretation Laboratory test result [facility] ([facility] [place]) <content></content>
<content> </con tent>
<content>NORMAL KIDNEY FUNCTION</content>
<content> OR MILD DISEASE - GFR >OR= 60</content>
<content>CHRONIC KIDNEY DISEASE - GFR 15 - 59</content>
<content>RENAL FAILURE - GFR <15</content>
<content> </content>< br/><content>Est. GFR calculation based on the MDRD</content>
<content>study equation, which assumes a steady</content>
<content>state for creatinine. Est. GFR should not</content>
<content>be used for medication dosing.</content>
<content></content> ID Date Data Source [id number] 01/24/2020 06:57:00 AM EDT [facility] ([facility]oc iated [facility]) Name Value Range Interpretation Code Description Data Daphney rce(s) Supporting Document(s) Erythrocytes [#/volume] in Blood by Automated count 4.04 10*6/uL 4.60 -6.10 [facility] ([facility]ated [facility]) Leukocytes [#/volume] in Blood by Automated count 11.8 10*3/uL 4.1-11 .0 [facility] ([facility]ated [facility]) Erythrocyte mean corpuscular volume [Entitic volume] by Auto mated count 97.1 fL 80.0-95.0 [facility] ([facility]) Hematocrit [Volume Fraction] of Blood by Automated count 39.2 % 4 1.0-53.0 [facility] ([facility]ated [facility]) Hemoglobin [Mass/volume] in Blood 12.9 g/dL 13.5-18.0 [facility] ([facility]ated [facility]) Erythrocyte distribution width [Ratio] by Automated count 14.1 % 10.5-14.5 [facility] ([facility]ated [facility]) Erythrocyte mean corpuscular hemoglobin concentration [Mass/volume] by Automated count 32.8 g/dL 32.0-36.0 [facility] ([facility]) Erythrocyte mean corpuscular hemoglobin [Entitic mass] by Automated count 31.8 pg 27.0-32.0 [facility] ([facility]) Platelet mean volume [Entitic volume] in Blood by Automated count 9.0 fL 7.1-10.7 [facility] ([facility] Pro[facility]) Platelets [#/volume] in Blood by Automated count 152 10*3/uL 150-450 [facility] ([facility]ated [facility]) ID Date Data Source [id number] 01/24/2020 07:48:27 AM EDT [facility] [place] [facility] Name Value Range Interpretation Code Description Data Daphney rce(s) Supporting Document(s) SODIUM 141 mmol/L (136-145) [facility] [place] [facility] POTASSIUM 3.7 mmol/L (3.6-5.2) [facility] [place] [facility] CHLORIDE 112 mmol/L (100-108) H [facility] [place] [facility] CO2 21 mmol/L (22-31) L [facility] [place] [facility] ANION GAP 8 mmol/L (7-16) [facility] [place] [facility] UREA NITROGEN 19 mg/dL (7-24) [facility] [place] [facility] CREATININE 1.44 mg/dL (0.80-1.30) H [facility] [place] [facility] BUN/CREAT RATIO 13.2 RATIO (10.0-20.0) [facility] GLUCOSE 197 mg/dL (70-99) H [facility] [place] [facility] CALCIUM 7.7 mg/dL (8.4-10.2) L [facility] [place] [facility] GFR 50 ml/min/1.73m2 (>59) L [facility] [place] [facility] GFR ( AMER) >60 ml/min/1.73m2 (>59) [facility] [place] [facility] GFR INTERPRETATION [facility] --NORMAL KIDNEY FUNCTION OR MILD DISEASE - GFR >OR= 60CHRONIC KIDNEY DISEASE - GFR 15 - 59RENAL FAILURE - GFR <15 Est. GFR calculation based on the MDRDstudy equation, which assumes a steadystate for creatinine. Est. GFR should notbe used for medication dosing. ID Date Data Source [id number] 01/24/2020 07:37:38 AM EDT [facility] [place] [facility] [place] Name Value Range Interpretation Code Description Data Daphney rce(s) Supporting Document(s) WBC 11.8 10*3/uL (4.1-11.0) H [facility] [place] [facility] RBC 4.04 10*6/uL (4.60-6.10) L [facility] [place] [facility] HGB 12.9 g/dL (13.5-18.0) L [facility] [place] [facility] HCT 39.2 % (41.0-53.0) L [facility] [place] [facility] MCV 97.1 fL (80.0-95.0) H [facility] [place] [facility] MCH 31.8 pg (27.0-32.0) [facility] [place] [facility] MCHC 32.8 g/dL (32.0-36.0) [facility] [place] [facility] RDW 14.1 % (10.5-14.5) [facility] [place] [facility] PLT 152 10*3/uL (150-450) [facility] [place] [facility] MPV 9.0 fL (7.1-10.7) [facility] [place] [facility] ID Date Data Source [id number] 01/23/2020 11:00:00 AM EDT [facility] ([facility] [place]) Name Value Range Interpretation Code Description Data Daphney rce(s) Supporting Document(s) Leukocytes [#/volume] in Blood by Automated count 14.4 10*3/uL 4.1-11 .0 [facility] ([facility] [place]) Erythrocytes [#/volume] in Blood by Automated count 3.93 10*6/uL 4.60 -6.10 [facility] ([facility] [place]) Erythrocyte mean corpuscular volume [Entitic volume] by Auto mated count 96.3 fL 80.0-95.0 [facility] ([facility]) Hemoglobin [Mass/volume] in Blood 12.4 g/dL 13.5-18.0 [facility] ([facility]) Hematocrit [Volume Fraction] of Blood by Automated count 37.8 % 4 1.0-53.0 [facility] ([facility]) Erythrocyte mean corpuscular hemoglobin concentration [Mass/volume] by Automated count 32.8 g/dL 32.0-36.0 [facility] ([facility]) Erythrocyte mean corpuscular hemoglobin [Entitic mass] by Automated count 31.6 pg 27.0-32.0 [facility] ([facility]) Erythrocyte distribution width [Ratio] by Automated count 14.4 % 10.5-14.5 [facility] ([facility]) Platelets [#/volume] in Blood by Automated count 161 10*3/uL 150-450 [facility] ([facility]) Platelet mean volume [Entitic volume] in Blood by Automated count 9.1 fL 7.1-10.7 [facility] ([facility]) ID Date Data Source [id number] 01/23/2020 11:00:00 AM EDT [facility] ([facility]oc [facility]ated [facility]) Name Value Range Interpretation Code Description Data Daphney rce(s) Supporting Document(s) Sodium [Moles/volume] in Serum or Plasma 138 mmol/L 136-145 [facility] (Associated Credit Director [facility]) Potassium 3.6 mmol/L 3.6-5.2 [facility] ([facility]) Chloride [Moles/volume] in Serum or Plasma 106 mmol/L 100-108 [facility] ([facility]) Carbon dioxide, total [Moles/volume] in Serum or Plasma 25 mmol/L 22 -31 [facility] ([facility]) Anion gap 3 in Serum or Plasma 7 mmol/L 7-16 [facility] ([facility]) Creatinine [Mass/volume] in Serum or Plasma 1.56 mg/dL 0.80-1.30 [facility] ([facility]) Urea nitrogen [Mass/volume] in Serum or Plasma 20 mg/dL 7-24 [facility] ([facility]) Calcium [Mass/volume] in Serum or Plasma 7.7 mg/dL 8.4-10.2 [facility] ([facility]) Glucose [Mass/volume] in Serum or Plasma 142 mg/dL 70-99 [facility] ([facility]) Urea nitrogen/Creatinine [Mass Ratio] in Serum or Plasma 12.8 RATIO 10.0-20.0 [facility] ([facility]) GFR Interpretation Laboratory test result [facility] ([facility]) <content></content>
<content> </con tent>
<content>NORMAL KIDNEY FUNCTION</content>
[...] Plasma by Creatinine-based formula (MDRD) 55 ml/min/1.73m2 [facility] ([facility]) Glomerular filtration rate/1.73 sq M.pre dicted [Volume Rate/Area] in Serum or Plasma by Creatinine-based formula (MDRD) 45 ml/min/1.73m2 [facility] ([facility]) ID Date Data Source [id number] 01/23/2020 11:00:00 AM EDT [facility] ([facility] [place]) Name Value Range Interpretation Code Description Data Daphney rce(s) Supporting Document(s) Troponin I.cardiac [Mass/volume] in Serum or Plasma Laboratory test result [facility] ([facility] [place]) Less than 0.05: Myocardial injury unlike ly Greater than or equal to 0.05: Highly suggestive of myocardial injury Correlation with rise and/or fall of serial troponins, clinical symptoms and ECG changes is necessary. ID Date Data Source [id number] 01/23/2020 12:02:00 PM EDT [facility] Name Value Range Interpretation Code Description Data Daphney rce(s) Supporting Document(s) TROPONIN I <0.05 ng/mL (<0.05) [facility] [place] Less than 0.05: Myocardial injury unlike lyGreater than or equal to 0.05: Highly suggestive of myocardial injuryCorrelation with rise and/or fall ofserial troponins, clinical symptomsand ECG changes is necessary. ID Date Data Source [id number] 01/23/2020 12:02:00 PM EDT [facility] Name Value Range Interpretation Code Description Data Daphney rce(s) Supporting Document(s) SODIUM 138 mmol/L (136-145) [facility] POTASSIUM 3.6 mmol/L (3.6-5.2) [facility] CHLORIDE 106 mmol/L (100-108) [facility] CO2 25 mmol/L (22-31) [facility] ANION GAP 7 mmol/L (7-16) [facility] UREA NITROGEN 20 mg/dL (7-24) [facility] CREATININE 1.56 mg/dL (0.80-1.30) H [facility] BUN/CREAT RATIO 12.8 RATIO (10.0-20.0) [facility] GLUCOSE 142 mg/dL (70-99) H [facility] CALCIUM 7.7 mg/dL (8.4-10.2) L [facility] GFR 45 ml/min/1.73m2 (>59) L [facility] GFR ( AMER) 55 ml/min/1.73m2 (>59) L [facility] GFR INTERPRETATION [facility] --NORMAL KIDNEY FUNCTION OR MILD DISEASE - GFR >OR= 60CHRONIC KIDNEY DISEASE - GFR 15 - 59RENAL FAILURE - GFR <15 Est. GFR calculation based on the MDRDstudy equation, which assumes a steadystate for creatinine. Est. GFR should notbe used for medication dosing. ID Date Data Source [id number] 01/23/2020 11:38:24 AM EDT [facility] [place] Name Value Range Interpretation Code Description Data Daphney rce(s) Supporting Document(s) WBC 14.4 10*3/uL (4.1-11.0) H [facility] RBC 3.93 10*6/uL (4.60-6.10) L [facility] HGB 12.4 g/dL (13.5-18.0) L [facility] HCT 37.8 % (41.0-53.0) L [facility] MCV 96.3 fL (80.0-95.0) H [facility] MCH 31.6 pg (27.0-32.0) [facility] MCHC 32.8 g/dL (32.0-36.0) [facility] RDW 14.4 % (10.5-14.5) [facility] PLT 161 10*3/uL (150-450) [facility] MPV 9.1 fL (7.1-10.7) [facility] ID Date Data Source [id number] 01/23/2020 02:30:56 AM EDT [facility] [place] Name Value Range Interpretation Code Description Data Daphney rce(s) Supporting Document(s) TROPONIN I <0.05 ng/mL (<0.05) [facility] [place] Less than 0.05: Myocardial injury unlike lyGreater than or equal to 0.05: Highly suggestive of myocardial injuryCorrelation with rise and/or fall ofserial troponins, clinical symptomsand ECG changes is necessary. ID Date Data Source [id number] 01/22/2020 07:55:00 PM EDT [facility] DATE OF EXAM: 01/22/2020EXAM: Chest 2V I [...] elevation. X5End of diagnostic report for accession: [id number] Interpreted: Marisel Davila MDTranscribed: 01/22/2020 07:52 PMSigned: 01/22/2020 07:55 PM Marisel Davila MD [facility] # [id number] [facility] # [id number] Name Value Range Interpretation Code Description Data Daphney rce(s) Supporting Document(s) ID Date Data Source [id number] 01/22/2020 06:58:33 PM EDT [facility] [place] Name Value Range Interpretation Code Description Data Daphney rce(s) Supporting Document(s) TROPONIN I <0.05 ng/mL (<0.05) [facility] [place] Less than 0.05: Myocardial injury unlike lyGreater than or equal to 0.05: Highly suggestive of myocardial injuryCorrelation with rise and/or fall ofserial troponins, clinical symptomsand ECG changes is necessary. ID Date Data Source [id number] 01/22/2020 06:58:33 PM EDT [facility] [place] Name Value Range Interpretation Code Description Data Daphney rce(s) Supporting Document(s) SODIUM 138 mmol/L (136-145) [facility] POTASSIUM 3.9 mmol/L (3.6-5.2) [facility] CHLORIDE 106 mmol/L (100-108) [facility] CO2 24 mmol/L (22-31) [facility] ANION GAP 8 mmol/L (7-16) [facility] UREA NITROGEN 16 mg/dL (7-24) [facility] CREATININE 1.60 mg/dL (0.80-1.30) H [facility] BUN/CREAT RATIO 10.0 RATIO (10.0-20.0) [facility] GLUCOSE 156 mg/dL (70-99) H [facility] CALCIUM 8.6 mg/dL (8.4-10.2) [facility] GFR 44 ml/min/1.73m2 (>59) L [facility] GFR ( AMER) 53 ml/min/1.73m2 (>59) L [facility] GFR INTERPRETATION [facility] --NORMAL KIDNEY FUNCTION OR MILD DISEASE - GFR >OR= 60CHRONIC KIDNEY DISEASE - GFR 15 - 59RENAL FAILURE - GFR <15 Est. GFR calculation based on the MDRDstudy equation, which assumes a steadystate for creatinine. Est. GFR should notbe used for medication dosing. ID Date Data Source [id number] 01/22/2020 06:37:48 PM EDT [facility] Name Value Range Interpretation Code Description Data Daphney rce(s) Supporting Document(s) WBC 16.0 10*3/uL (4.1-11.0) H [facility] RBC 4.67 10*6/uL (4.60-6.10) [facility] HGB 14.7 g/dL (13.5-18.0) [facility] HCT 45.2 % (41.0-53.0) [facility] MCV 96.7 fL (80.0-95.0) H [facility] MCH 31.4 pg (27.0-32.0) [facility] MCHC 32.5 g/dL (32.0-36.0) [facility] RDW 14.5 % (10.5-14.5) [facility] PLT 163 10*3/uL (150-450) [facility] MPV 8.2 fL (7.1-10.7) [facility] ID Date Data Source [id number] 01/23/2020 07:46:00 PM EDT [facility], [address] [address] NAME: JOSE VILLATORODATE OF : 1955REPORT: CONSULTATIONPATIENT NUMBER: [id number] STATUS: IPMEDICAL RECORD NUMBER: [id number]: [facility] HOSPITALIST CONSULTATIONDATE OF CONSULTATION: 01/22/2020CONSULT REQUESTED BY: [...] four hours PRNPRN Reason: painExtended Instructions: istop [id number] MaxDailyDose- 6Medication Status: activeomeprazole 40 mg capsule,delayed [...] also request a chest x-ray. Will request public information coordinator covering hospitalist to follow overnight work up.Thank you for this consult. Hospitalist team will follow with you.DICTATED BY: JOSSELIN Hayictated: 01/22/2020 18:00DT: 01/22/2020 18:09Job #: [id number]: Quinton Pride MDNOTE: [facility] computer generated reports are notconfirmed or authenticated unless they are signed by the providerElectronically Authenticated and Edited by:ADELINA ALCARAZ MD On 01/23/2020 07:46 PM EDT Name Value Range Interpretation Code Description Data Daphney rce(s) Supporting Document(s) ID Date Data Source [id number] 01/22/2020 05:32:39 PM EDT [facility] Name Value Range Interpretation Code Description Data Daphney rce(s) Supporting Document(s) MUSE EKG PDF encoded Todd Ho spital DWCNKv1fGiAOBvTvo0ByArYrWRDgOC1egdq6Y1A2iTTeQ2DenYBbr9anO6CoA1KhORVvQGEYYZ4OvHTk jb2 [file] s1EZ3EY8+r5P1CvMLz9qf8W/T/0td+NaXSP/4d5++Nguyễn+KbX4gjj8i8l2Cs1/exwGwN1zaHW+t3zXkY+ A7+Y8o48Sk/XNn6A73HDD5d+estF/j97R8x6jUue+688tK+3W5h4OhzVW8A/hi28cosn+SSn/8o4Y4f0 Opwqunq3fu9Xq5T/jvthQ2r3v/DKSbn/ouPrmua700 bPZny35p3+WtPy9v+/UniWlF7esYsQtW0lcg1B6+4/m2byzH+JyJhb8fl7u0G2byT1ldiC2um5kYt/Ld sl/dPGG/SyJsLxwaYonSl5R+G/VN/eqlwXfwUV/TmjlyZ6oksjz41RaJBF4veP6y8N4ClV1D+dmoK4M6 Slmu9AqU9w4YBm1+XWm/mtu3Dw8d9iabGvwHerhH+b fzI5ny3xCU+1V9G+ekma0Za8w752M+PZh/zwRfwO/46gt1t2ESmoSdYQ+RD/UP7WaiTTdxw+pXLw1+IP 7eqRs2v9h++Cv70ZgEO292cCU1oMF9IcScco79f8tHLw/uPFOmeRqAq3Ka+5W3jt6CH+aLGnv5PW0t6b R6Gg8eb1X116obVoK/mqsFx9rdY/8zqyHlwG66JBA/ kos6n5yFaOm442lj8AwU+7YA9f71qusTgqFUdoJQB144bVvG1Vkeg8F1P0Yucpq0KiKjKwByVNWjqTgz EjsfofO7c3N0aL8HMU/U37qokUi3TtZn6li96t8bx+2xutr+zQswz7a6qJbxZ+ve8Sr6NLzmd6bLcAGu sb5lyRjNx+M7A+XHbyWxK764Zmh2+ld1gI/fV3s/VF XAF/UoHvwg64Bc5sX8+gfD3XzdEtttb4jeYcT607caj88ii1m7BiX9G3O1kP+0tinZf4IyUR4QxDWw7U Vm27KQaf9U9/tX48718o9lr0nH5zt4Iaa0siG1+Bv8AD/AP+Jobt34VVYje0K4KrIT1+t9pL84fss+jv o6+m/yG269H021IoP6Bjs29krE5X79nRm/XENlKA3u V656Ltub1e649jg7c+MhU4iNus+VVJQgj4b3BuaKbj0XfH9c9ny0wt/rhew7P/6g6ft5PgZt2zbirCjx bvga8p8W3Cb26j8lw+6Tjgpji1rxg1rvBp+uoaD1V907bBD/5ynhSSo4rAa0s+L6gb9DZksECyf6aZ2Q A/UNjM+hS0AxtA+n4szb4Zyi/yCZF73cZ7tpkwa8wq WBRq/85pQ7D8+v9/X8hL4M07TL/IC6yZ5XV+u8ZfrNnoXU2/cY+Aex5pv2RQb+qO+OsheUvs7J8ll8/M Y91F/94p7p/3N9wcEx7S/SAr7g+GX6bt4zn/xli7hn+av/7qD4io8rn/ccw16w0iu+L73B3+AH+IF8Ds g6bz0pLs930f4rB+to25sF0WoRWf/tzAM1Ba+9J/fL ZynF2cq0+57b/7RMvkPr3v66Iw/W7/cEey0p45s2Dq9dL/gH/HM5JGQc7IV+SNX42VFgYh3bg+45/bKN 1WZ0pgNty61H3S+lb/wWz2LZDlTqopLn/GvfqHdvfVfmf+tb6QA/wD+jv+A635j02LdIy4T/f64U7w81 q5LDtV+ZeBnzs4c8vCIW+3Gyio7NfxpkBbg31p2d3U cv/siPQG1HDtnACuTV7d/0edksoa0p+oxA9qSr614c023/dr7Y9c3Q6pJ9Bh5ZjLhjDKrO24H71Q41jG R9hz30C8p+gI/xynp/wdJ+DWkIB0w/yrqn/vzxnZc85407Dk6shSjLS6NCftVj3Ka3Q/sJnkPf2R/wez 4y7/aFET7x9Y0F5hacDH/AX+Dl5LIvK89v7XSA66Cg S9800wXvFa+Ut50JETH/4Pd+t+8q81J9jO/b53aM4qC+4PkF/gK/555L1kuKdyCkDehxN2B8H7XDt/JK W6cD/R2yw1Lu7j9kcle0ksR/BpdbCXo4Gn1Fn8Am2Gj68j8Irj2c9laYYm9/WPZ8zy52Al1+d3K0SUz+ o4Ii1LixQoEInpx4W0N6tkC/Tcum6VY75C2uy+z0es RZya59ln+n6Cn9vD1uM0cl6bv2Sjrvlkk+B/U9qO/p+vro9a+n/eq2PR/qvo4L8Hr74gX8f4/eL/Ox8L win+6/Prr/+tAdGDyXx8A/wQ/wA/zzjcM+2t7us/VJT/3q6oGe+tVLWz/T+bYQwl892hvor/uvY3/QsT /os8+xEp36H688m86zg/WB8os6wW4VC5C/wG/7s+N8 u+X9hTcjLb7jI1z6RJe/6y+Xtk+91K9aO4/f8P+YqyOJ8hlDdQC/ZpXt2pGKyRtwDob/zlxCqqzk/tuc Fwnr+PwZimIHCNoT9NPv3/sOv57e3X26swDyqW5H4Yf/VfrA+LE5PkoQ88R+G9/nUfZQ8Nbf7IUv6taW g6r2Fw7Q0006nu5j+CufHa/dAR3ZrlwvIo1Ay2S+6j f8JpWmVZ+dY25cyT0ajMzs1WLlwlfilN/oAAE2IiR8w6oiKH0BxpOH+FUrbu626wkmq/5Ridn4kBR/5Q vfb/lXeXy+bJ9gd6R3N5/+ebS3ai4cxt6tN/8qsQ6//tU7/n2/7lpJ5kIiqik/knwG6/mCW8+PvOLb83 z75mVe/lVe2/8mw34ur/X/163jkbzir+rYXmyJX//q O7YXT+KIv3LH+3X0Z+94Bvf+H3n6V/dpnD6UZasDnsB2iTGJyitlq+tx3116Q+M06n6IxCnELnuI/yOs EmcIO636/SIuv0CDIt2ls7SuyuojZM9QD/hXDv/W9M219ht7I97fF/+aff85r1+I17Wy45/gEK1u80H1 WD0Vx6UtPo9/iaHq8bY+swO/4xs7jhNroZ55/dej13 8d+QPszl8R6484qvYA5wXNid165J54xv+On54f+ZGBY+jx/z0db+ZnfvNKP/PDVfz0/hQ/vT/FT+Oxfn p/ymVm//Gljn8LYCl5diM34jum75icGc674N3346Gm7cJ3052SI159pz3P1WO4Sl0SlmW4anNComljD/ koG7lp4HvlPWgiF6639M1d6AMbiagL+TV7ta0V074+ XQ3vlK1cF43g9NJ34SOC/OodQ7+g7/frtujYL3tPfw5Lcrp5/rKTx7bk3hodMxicMxw8+TzYyal9nm+y a09WNiYJg7G/xzH792tT27aZThkKBs7BP0Dw2P/o23/eWB/cWB/cWB/f4sVl5Lz31u2Me/Z66E7/6h1/ /u1O/yr12D+4Ed++Z/+P6ko4fq04BPQld0Fe3/7QPX v18sTprhzgs7l9+Kyym212RiRk24+UEyg/oH81x1mnrDRh5Hf6Yx5d7UD3ej4Ftg/39+o77534R9at1T ehvsugN+p8lU5G3E3a2H/oA+ejvqv/v3u1/4ar63o46CaeP94/rwl3qB50at0P97n6f1yNCvou02qn0R v/u63/V1lip5eF4/0dT7s5Ltc8R/zr3n1y6um1GuEI tw/oBXr0Z/hXG/7Vhn+1He/Ug186T69t7/063i/8qw3/avvG8/M92QfV6iN08UjN5708doD4h18z7w41 fje+343vF/7Vhn+1N+q7Ud+N+v067013y/F+M36wfswq385V5hcak/bu9d+d/oZ13pMiP731DedJp9Zy qKOVeJECyhB7K+fa7Fc4x0l7a2K35Pr34R49G5p2R8 oS53VppAnO0+3TeM7G+uA+GK8O/fzTbO68V5/lv3SV88xIG/+jg//RMZzvuK/6rEb71Jo5tp/YiG/fp+ D28ao9mOQ+Fdg/LJXcPuVMxjNioA7vo/kIibb0WCY+KhB/MvQqk7wNN0dWyP0Ykk/H6Pl+jJ7vR+JXM4 87fiMy/sfLxsv7qaXRAShfT6g3iSbBaaEL9/2Q7s+B +QqTEd5J+Rbjo42xs09wATaZv1A7b5zG5xjry+UI28d5wJ3k1fSir6AHeWAc1Jm4Z/oJ/YK+481CG9+I wq/vfSZpIu2TzBJQ11QuQX9RWk8I0K1Lji2jVl9pfLg/Wdyrs3ODi4+/NDK+/eIGkeuDea+1MvhFQLf0 ryFS3t7EUrgT2HXXjXlmzw2+xz+56oThr0FU2wd/zh eyjnN/+EnM+QGseleGrck4x2+742yaEz6a4Z/d+Uhc/ik78iV4owZhh/V+nEj/WcyjxttxwH3J/KtY7W /K8myGZXw11/dKK3O5avPw0pyAwx37eJ2asO7cYl/PYT0+t6U1mg5HA6nnvOPPqt3xwNB/W5aJw9Fa2E vKMdy3/vtry58wJUd+ZsqZr0I2oYtY/qxLT3t0ZaK8 jM/e6wuB+PbA+mBgfTC8/0fhC+kilC5699Q67Sd+Mrzj+cM3zg+vN7Tx0Et+WxmXU3Ua2Xd0ZHfwL9U4 /Kl74lpO1Wet9SdsfdIWe15rd/SH7Holy8cnjNZJkS6gkssvkB59k+d04zNey12/du+zz301gUFLD++O 6Pl+tUE6JVCoK7Q2E49j4VM7l6jcXHG6I7QDiV4Jxx PeoXfoG9+J3W15Qi9oUyYdQTgJbga9vAaqdsRqON/Sc0xERT/qO4Z+4nEssCTrp5cFh/ERFh09p3E2h6 PiV9n+iV+9Y+gD+z1mOBlegV4/7/1wxfN2h1b0auZmPbpbVC5ibR1+/fZU/NW8x/P7r53R+KUYeQ5dqF +m9kIdVm6QzmJEC/Qb+vYnz+jx6oyA/kDf+MaRXt8/ 0t/vkf5+j7T/wVSiyfmjNQY7T2WyHZ2Y8EBKWiTR0Nwev5v87GV06ZP95CG60BM43Id/Nr6M2Hp3N0+i ybXxamO7jdJ1Y+24tPE47vH+/QC/OsCvjqK+rhgc6dtxc7ijfzWiWAsR6yP+nF40Kmb7T+S/PbVrZ9ht 9IrzJ/QT+yI7ib2rkzZ5SgTckw5tsd3nfk6m/9WZge cPlN/z/SHqonjq45FWIhWM1Q4jARF7n4KvyzR87uoT4tikl84gWFwcl5t9/Vqfx13wk4CgpbdrxUXoF/ 49Bdm0GosIp2hnq/e4vb1eiGY0O+FVv0xu6/0px3o+nLUzToN5Gkpkq5fyQJ5fLK6wtW61diIJ+7WAHt +vob7e/aYXboPuAyt58/ePK/QKffuTB/sHD/YPHuwf SA0Ei25G+mL/4MH+xKG3nvX/6sC/Ooi/Ooi/Ooi/Ooi/Orv3O5+E4GdikR2oj4K9fty0C5e1/tBT/lUe G/GGgt82MrcoTY/6V+8Y+oA+8MaCy1nkfSKwQ8ocTO/oILyi3PO/8cL42YY+kWOfh0Qw/RM9/s1s7Mb2 1ni3k3U23Fj7k9p/Xspu3pcCra13ES3G25Lp5ca6uw 5Gp4OsayTaJe98h+f75/R8/5wF/YK+8+ec0/i1jnw589iHJ25tZ+/7stnAccn21mSz4+C+Xd8/d6MB2Z 0HA4AuV+Er60/Q7yY/4Zs1/qv63xfD/AkGYdGyaLGvKj/ha8M/wfls/bb/vZ4QklFbQHdN6dmG8sDdNE T0NclF3ET4p4+g30LsT/tnIF3ELjpN53riCuPkGQNz VQG/a4iZL0hgx9weotgPQ1DmQDDET5cWHTIa/D7xTE/pL1115AJsX2GdGhC22xbMju93Y7w5mZxzDVzN mH3wz7EAaiBD76c0bDl5HZTlQ+whJn8C+6KH7M6mQCe/4RsJ/jNBJK9OLjoPly5s5YpVciKlSvhw2tQ+ zD25WuWtYelmo7R/hp2Wk6TdiYeXtpZfHitzrBRghJ jXLuZC2CgMs8Og4eKVOsuBHzoBve0eO0KCNCxyiO1XhPKYEGWWDxpOHikCtM7p1F2QY7E9RsMyrbLLYT 7ltLR7/hPQewGQ/JN9jRLmeTOBbFE378rTi9H4l0K7ZoEz9RXUU0Kt2vfSfmnLf2xu5/eJWVm25x/7P8 G/ie9P+HmHtwJRlX8gzMV/DaOfA7OCo8HYVAqVMPOb cRNqA0wlX8nk+L6KNgLeBg+PQBejkhqyLA3hTdH1Uv9L1dM9K8vMW20klNDGFLKxmsEQO+D5G0XZsU6/ hYoyAVgJdseROoef4M5LwehGGhBQ0ixEooY08z21yg7IYXze3xgS+3nDU3Z5lu4fq9YEYxTxdhJCX0tO wYgqZX1H5w2R4DgV1qMWf77/AT0++C1gp+Mva/igQI eX1tMrwweoDDYO6qffufQU/BOfxftUrID0NJuWM9lFwHi+Fw7/C4f/BQTn/wT8Fw7/B9gzeH4C/8JBSt tqGGvqOTJlut27XrP2/gEeMhl0VS5HR1ZtncD5lyNn790wXPqHK0NzOoSUwDAhsYUK1hkWaY7j7ZargS 3wqQ/cxzfCwHmGJkKae31EbXVSGdZSduvcxwYKdRZ5 RCFBX0Pb/ygIv0MngMInYFekt9AsEtHuJ0Q3KcpuYZ4NLTSslQ4fzA+R8KIhTl9rfje7OPiqcf6s8KDY /cpM/cpU/tag machine operator/XnaucOLE5Ew3epBbaM2KyrXejFaoV8ncaiL+dhNsm0mdzetUpGKdF5j4Wcn+0+ghW0w [file] [id number] ID Date Data Source [id number] 01/21/2020 11:10:00 AM EDT [facility] [place] Name Value Range Interpretation Code Description Data Daphney rce(s) Supporting Document(s) Potassium 4.0 mmol/L 3.6-5.2 [facility] ([facility] [place]) Sodium [Moles/volume] in Serum or Plasma 142 mmol/L 136-145 [facility]) Chloride [Moles/volume] in Serum or Plasma 110 mmol/L 100-108 [facility] ([facility]) Carbon dioxide, total [Moles/volume] in Serum or Plasma 26 mmol/L 22 -31 [facility] ([facility]) Anion gap 3 in Serum or Plasma 6 mmol/L 7-16 [facility] ([facility]) Urea nitrogen/Creatinine [Mass Ratio] in Serum or Plasma 16.2 RATIO 10.0-20.0 [facility] ([facility]) Creatinine [Mass/volume] in Serum or Plasma 1.36 mg/dL 0.80-1.30 [facility] ([facility]) Urea nitrogen [Mass/volume] in Serum or Plasma 22 mg/dL 7-24 [facility] ([facility]) Calcium [Mass/volume] in Serum or Plasma 7.6 mg/dL 8.4-10.2 [facility] ([facility]) Glomerular filtration rate/1.73 sq M.pre dicted [Volume Rate/Area] in Serum or Plasma by Creatinine-based formula (MDRD) 53 ml/min/1.73m2 [facility] ([facility]) Glucose [Mass/volume] in Serum or Plasma 127 mg/dL 70-99 [facility] ([facility]) Glomerular filtration rate/1.73 sq M pre dicted among blacks [Volume Rate/Area] in Serum or Plasma by Creatinine-based formula (MDRD) Laboratory test result [facility] ([facility]) GFR Interpretation Laboratory test result [facility] ([facility]) <content></content>
<content> </con tent>
<content>NORMAL KIDNEY FUNCTION</content>
<content> OR MILD DISEASE - GFR >OR= 60</content>
<content>CHRONIC KIDNEY DISEASE - GFR 15 - 59</content>
<content>RENAL FAILURE - GFR <15</content>
<content> </content>< br/><content>Est. GFR calculation based on the MDRD</content>
<content>study equation, which assumes a steady</content>
<content>state for creatinine. Est. GFR should not</content>
<content>be used for medication dosing.</content>
<content></content> ID Date Data Source [id number] 01/21/2020 11:10:00 AM EDT [facility] ([facility]) Name Value Range Interpretation Code Description Data Daphney rce(s) Supporting Document(s) Leukocytes [#/volume] in Blood by Automated count 10.5 10*3/uL 4.1-11 .0 [facility] ([facility]) Erythrocytes [#/volume] in Blood by Automated count 4.04 10*6/uL 4.60 -6.10 [facility] ([facility]) Hemoglobin [Mass/volume] in Blood 12.9 g/dL 13.5-18.0 [facility] ([facility]) Hematocrit [Volume Fraction] of Blood by Automated count 39.0 % 4 1.0-53.0 [facility] ([facility]) Erythrocyte mean corpuscular volume [Entitic volume] by Auto mated count 96.6 fL 80.0-95.0 [facility] Erythrocyte mean corpuscular hemoglobin concentration [Mass/volume] by Automated count 33.0 g/dL 32.0-36.0 [facility] ([facility]) Erythrocyte distribution width [Ratio] by Automated count 14.3 % 10.5-14.5 [facility] ([facility] Director [facility]) Erythrocyte mean corpuscular hemoglobin [Entitic mass] by Automated count 31.9 pg 27.0-32.0 [facility] ([facility]) Platelets [#/volume] in Blood by Automated count 146 10*3/uL 150-450 [facility] ([facility] Director [facility]) Platelet mean volume [Entitic volume] in Blood by Automated count 8.9 fL 7.1-10.7 [facility] ([facility]) ID Date Data Source [id number] 01/21/2020 11:59:34 AM EDT [facility] Name Value Range Interpretation Code Description Data Daphney rce(s) Supporting Document(s) SODIUM 142 mmol/L (136-145) [facility] POTASSIUM 4.0 mmol/L (3.6-5.2) [facility] CHLORIDE 110 mmol/L (100-108) [facility] CO2 26 mmol/L (22-31) [facility] ANION GAP 6 mmol/L (7-16) [facility] UREA NITROGEN 22 mg/dL (7-24) [facility] CREATININE 1.36 mg/dL (0.80-1.30) [facility] BUN/CREAT RATIO 16.2 RATIO (10.0-20.0) [facility] GLUCOSE 127 mg/dL (70-99) [facility] CALCIUM 7.6 mg/dL (8.4-10.2) L [facility] GFR 53 ml/min/1.73m2 (>59) L [facility] GFR ([facility]) >60 ml/min/1.73m2 (>59) [facility] GFR INTERPRETATION [facility] --NORMAL KIDNEY FUNCTION OR MILD DISEASE - GFR >OR= 60CHRONIC KIDNEY DISEASE - GFR 15 - 59RENAL FAILURE - GFR <15 Est. GFR calculation based on the MDRDstudy equation, which assumes a steadystate for creatinine. Est. GFR should notbe used for medication dosing. ID Date Data Source [id number] 01/21/2020 11:31:38 AM EDT [facility] Name Value Range Interpretation Code Description Data Daphney rce(s) Supporting Document(s) WBC 10.5 10*3/uL (4.1-11.0) [facility] RBC 4.04 10*6/uL (4.60-6.10) L [facility] HGB 12.9 g/dL (13.5-18.0) [facility] HCT 39.0 % (41.0-53.0) [facility] MCV 96.6 fL (80.0-95.0) [facility] MCH 31.9 pg (27.0-32.0) [facility] MCHC 33.0 g/dL (32.0-36.0) [facility] RDW 14.3 % (10.5-14.5) [facility] PLT 146 10*3/uL (150-450) [facility] MPV 8.9 fL (7.1-10.7) [facility] ID Date Data Source [id number] 01/21/2020 05:03:00 PM EDT [facility] DATE OF EXAM: 01/20/2020RETROGRADE PYELO [...] indicated. D7End of diagnostic report for accession: [id number] Interpreted: Juvenal Elmore MDTranscribed: 01/21/2020 05:02 PMSigned: 01/21/2020 05:03 PM Juvenal Elmroe MD -------- [facility] ACC # [id number] BILL # [id number] Name Value Range Interpretation Code Description Data Daphney rce(s) Supporting Document(s) ID Date Data Source [id number] 01/21/2020 06:59:00 AM EDT [facility] [place], [place] [address] NAME: JOSE VILLATORODATE OF : 1955REPORT: OPERATIONPATIENT NUMBER: [id number] STATUS: OF ADMISSION: 01/20/2020DATE OF DISCHARGE:ROOM:DATE OF PROCEDURE: 01/20/2020PREOPERATIVE DIAGNOSIS: Right ureteral stone.POSTOPERATIVE DIAGNOSIS: Right ureteral stone.PROCEDURES PERFORMED:1. Rigid cystourethroscopy with right stent placement.2. Professional interpretation of radiologic images.SURGEON: FRAN Aguilera HISTORY AND REASON FOR PROCEDURE: This is a very -eujg-mre gentleman with two separate right mid ureteral [...] prepped and drapedin standard sterile fashion. A 22-Turkish 30-degree rigid cystoscope wasinserted under direct vision [...] and the ureteral catheter wasremoved and a 6-Turkish 26 cm double-J stent was placed in [...] double-Jstent overlying the right renal pelvis.DRAINS: Right 6-Turkish 26-cm double-J stent with no string attached.COMPLICATIONS: None.ESTIMATED BLOOD LOSS: Minimal.SPECIMENS: None.DICTATED BY: Raji Wynne MDDictated: 01/20/2020 19:36DT: 01/20/2020 19:41Job #: [id number]: [facility] computer generated reports are not confirmed orauthenticated unless they are signed by the providerElectronically Authenticated by:RAJI WYNNE MD On 01/21/2020 06:59 AM EDT Name Value Range Interpretation Code Description Data Daphney rce(s) Supporting Document(s) ID Date Data Source [id number] 01/20/2020 01:20:00 PM EDT [facility] ([facility] Director [facility]) Name Value Range Interpretation Code Description Data Daphney rce(s) Supporting Document(s) Leukocytes [#/volume] in Blood by Automated count 15.5 10*3/uL 4.1-11 .0 [facility] (Associated [facility] Director [facility]) Hemoglobin [Mass/volume] in Blood 14.3 g/dL 13.5-18.0 [facility] (Associated Credit Director [facility]) Erythrocytes [#/volume] in Blood by Automated count 4.47 10*6/uL 4.60 -6.10 [facility] (Associated Credit Director [facility]) Erythrocyte mean corpuscular volume [Entitic volume] by Auto mated count 97.1 fL 80.0-95.0 [facility] ([facility]) Hematocrit [Volume Fraction] of Blood by Automated count 43.4 % 4 1.0-53.0 [facility] (Associated Credit Director [facility]) Erythrocyte mean corpuscular hemoglobin [Entitic mass] by Automated count 32.0 pg 27.0-32.0 [facility] ([facility]) Platelets [#/volume] in Blood by Automated count 172 10*3/uL 150-450 [facility] (Associated Credit Director [facility]) Erythrocyte distribution width [Ratio] by Automated count 14.5 % 10.5-14.5 [facility] (Associated Credit Director [facility]) Erythrocyte mean corpuscular hemoglobin concentration [Mass/volume] by Automated count 32.9 g/dL 32.0-36.0 [facility] ([facility] Medica l Professionals [facility]) Platelet mean volume [Entitic volume] in Blood by Automated count 9.3 fL 7.1-10.7 [facility] ([facility] Profe ssionals [facility]) ID Date Data Source [id number] 01/20/2020 01:20:00 PM EDT [facility] (Assoc iated Credit Director [facility]) Name Value Range Interpretation Code Description Data Daphney rce(s) Supporting Document(s) Sodium [Moles/volume] in Serum or Plasma 142 mmol/L 136-145 [facility] (Associated Credit Director [facility]) Carbon dioxide, total [Moles/volume] in Serum or Plasma 26 mmol/L 22 -31 [facility] ([facility]ated Credit Director [facility]) Potassium 4.7 mmol/L 3.6-5.2 MED[facility] (Associ ated Credit Director [facility]) Chloride [Moles/volume] in Serum or Plasma 108 mmol/L 100-108 [facility] (Associated Credit Director [facility]) Creatinine [Mass/volume] in Serum or Plasma 1.50 mg/dL 0.80-1.30 [facility] (Associated Credit Director [facility]) Anion gap 3 in Serum or Plasma 8 mmol/L 7-16 [facility] ([facility]ated Credit Director [facility]) Urea nitrogen [Mass/volume] in Serum or Plasma 25 mg/dL 7-24 [facility] (Associated Credit Director [facility]) Urea nitrogen/Creatinine [Mass Ratio] in Serum or Plasma 16.7 RATIO 10.0-20.0 [facility] (Associated Credit Director [facility]) Glucose [Mass/volume] in Serum or Plasma 147 mg/dL 70-99 [facility] (Associated Credit Director [facility]) Glomerular filtration rate/1.73 sq M pre dicted among blacks [Volume Rate/Area] in Serum or Plasma by Creatinine-based formula (MDRD) 57 ml/min/1.73m2 [facility] (Associated Credit Director [facility]) Glomerular filtration rate/1.73 sq M.pre dicted [Volume Rate/Area] in Serum or Plasma by Creatinine-based formula (MDRD) 47 ml/min/1.73m2 [facility] ([facility] [place]) Calcium [Mass/volume] in Serum or Plasma 8.6 mg/dL 8.4-10.2 [facility] ([facility] [place]) GFR Interpretation Laboratory test result [facility] ([facility] [place]) <content></content>
<content> </con tent>
<content>NORMAL KIDNEY FUNCTION</content>
<content> OR MILD DISEASE - GFR >OR= 60</content>
<content>CHRONIC KIDNEY DISEASE - GFR 15 - 59</content>
<content>RENAL FAILURE - GFR <15</content>
<content> </content>< br/><content>Est. GFR calculation based on the MDRD</content>
<content>study equation, which assumes a steady</content>
<content>state for creatinine. Est. GFR should not</content>
<content>be used for medication dosing.</content>
<content></content> ID Date Data Source [id number] 01/20/2020 02:07:19 PM EDT [facility] Name Value Range Interpretation Code Description Data Daphney rce(s) Supporting Document(s) SODIUM 142 mmol/L (136-145) [facility] POTASSIUM 4.7 mmol/L (3.6-5.2) [facility] CHLORIDE 108 mmol/L (100-108) [facility] CO2 26 mmol/L (22-31) [facility] ANION GAP 8 mmol/L (7-16) [facility] UREA NITROGEN 25 mg/dL (7-24) H [facility] CREATININE 1.50 mg/dL (0.80-1.30) H [facility] BUN/CREAT RATIO 16.7 RATIO (10.0-20.0) [facility] GLUCOSE 147 mg/dL (70-99) H [facility] CALCIUM 8.6 mg/dL (8.4-10.2) [facility] GFR 47 ml/min/1.73m2 (>59) L [facility] GFR ( AMER) 57 ml/min/1.73m2 (>59) L [facility] GFR INTERPRETATION [facility] [place] --NORMAL KIDNEY FUNCTION OR MILD DISEASE - GFR >OR= 60CHRONIC KIDNEY DISEASE - GFR 15 - 59RENAL FAILURE - GFR <15 Est. GFR calculation based on the MDRDstudy equation, which assumes a steadystate for creatinine. Est. GFR should notbe used for medication dosing. ID Date Data Source [id number] 01/20/2020 01:38:40 PM EDT [facility] [place] Name Value Range Interpretation Code Description Data Daphney rce(s) Supporting Document(s) WBC 15.5 10*3/uL (4.1-11.0) H [facility] RBC 4.47 10*6/uL (4.60-6.10) L [facility] HGB 14.3 g/dL (13.5-18.0) [facility] HCT 43.4 % (41.0-53.0) [facility] MCV 97.1 fL (80.0-95.0) H [facility] MCH 32.0 pg (27.0-32.0) [facility] MCHC 32.9 g/dL (32.0-36.0) [facility] RDW 14.5 % (10.5-14.5) [facility] PLT 172 10*3/uL (150-450) [facility] [place] MPV 9.3 fL (7.1-10.7) [facility] [place] ID Date Data Source [id number] 01/20/2020 01:00:00 PM EDT [facility] (Assoc iated Credit Director [facility]) Name Value Range Interpretation Code Description Data Daphney rce(s) Supporting Document(s) Color of Urine by Auto Laboratory test result [facility] ([facility]ated Credit Director [facility]) Clarity in Urine by Refractometry automated Laboratory test result [facility] (Associated Credit Director [facility]) pH of Urine by Automated test strip 5.5 5.0-7.5 [facility] (Associated Credit Director [facility]) Specific gravity of Urine by Refractometry automated 1.017 1.003 -1.030 [facility] (Associated Credit Director [facility]) Leukocyte esterase [Presence] in Urine by Automated te st strip Laboratory test result Abnormal (applies to non-numeric results) [facility] (Associated Credit Director [facility]) Nitrite [Presence] in Urine by Automated test strip Laboratory t est result Abnormal (applies to non-numeric results) [facility] Protein [Mass/volume] in Urine by Automated test strip Laborator y test result [facility] (Associated Credit Director [facility]) Glucose [Mass/volume] in Urine by Automated test strip Laborator y test result [facility] (Associated Credit Director [facility]) Ketones [Mass/volume] in Urine by Automated test strip Laborator y test result [facility] (Associated Credit Director [facility]) Urobilinogen [Units/volume] in Urine by Test strip 1.0 mg/dL 0-1.0 [facility] (Associated Credit Director [facility]) Hemoglobin [Presence] in Urine by Automated test strip Laborator y test result Abnormal (applies to non-numeric results) [facility] Bilirubin.total [Presence] in Urine by Automated test strip Laboratory test result [facility] ([facility]) ID Date Data Source [id number] 01/20/2020 01:00:00 PM EDT [facility] (Assoc iated Credit Director [facility]) Name Value Range Interpretation Code Description Data Daphney rce(s) Supporting Document(s) Leukocytes [#/area] in Urine sediment by Microscopy hi gh power field Laboratory test result 0-5 [facility] ([facility] P [facility]fessionals [facility]) Epithelial cells [#/area] in Urine sediment by Microsc opy high power field Laboratory test result [facility] ([facility] [place]) Erythrocytes [#/area] in Urine sediment by Microscopy high power field Laboratory test result 0-2 [facility] ([facility] [place]) Bacteria [#/area] in Urine sediment by Microscopy high power field Laboratory test result [facility] ([facility] [place]) ID Date Data Source [id number] 01/20/2020 01:00:00 PM EDT [facility] ([facility] [place]) Name Value Range Interpretation Code Description Data Daphney rce(s) Supporting Document(s) Bacteria identified in Urine by Culture Laboratory test result [facility] (Associated Credit Director [facility]) SPECIMEN DESCRIPTION MIDSTREAM UR INE,CLEAN CATCH CULTURE [...] CIPROFLOXACIN >=8 RESISTANT ID Date Data Source [id number] 01/22/2020 08:14:42 AM EDT [facility] SPECIMEN DESCRIPTION MIDSTREAM UR INE,CLEAN CATCHCULTURE [...] rce(s) Supporting Document(s) ID Date Data Source [id number] 01/20/2020 02:04:10 PM EDT [facility] Name Value Range Interpretation Code Description Data Daphney rce(s) Supporting Document(s) URINE WBC (0-5) [facility] URINE RBC (0-2) [facility] EPITHELIAL CELLS 2+ [HPF] [facility] BACTERIA 1+ [HPF] [facility] ID Date Data Source [id number] 01/20/2020 01:27:50 PM EDT [facility] Name Value Range Interpretation Code Description Data Daphney rce(s) Supporting Document(s) COLOR [facility] APPEARANCE [facility] SPEC GRAV URINE 1.017 (1.003-1.030) [facility] PH URINE 5.5 (5.0-7.5) [facility] LEUK ESTERASE 2+ (NEG) A [facility] NITRITE URINE (NEG) A [facility] PROTEIN URINE (NEG) [facility] GLUCOSE URINE (NEG) [facility] KETONE URINE (NEG) [facility] [place] [place] UROBILINOGEN 1.0 mg/dL (0-1.0) [facility] [place] BILIRUBIN URINE (NEG) [facility] [place] [facility] BLOOD/HGB URINE 3+ (NEG) A [facility] [place] ID Date Data Source [id number] 01/20/2020 12:52:00 PM EDT [facility] ([facility] [place]) Name Value Range Interpretation Code Description Data Daphney rce(s) Supporting Document(s) Comment Laboratory test result ME JAVED ([facility] [place]) THE [place] FDA HAS MADE THIS TEST AVAILABL E UNDER AN EMERGENCY USE AUTHORIZATION (EUA) FOR THE DETECTION AND/OR DIAGNOSIS OF THE VIRUS THAT CAUSES COVID-19. EMAILED TO [facility] AT 3652 AU [phone] MY [phone]. Covid19 Result Laboratory test result [facility] ([facility] [place]) THIS ASSAY AMPLIFIES AND DETECTS THE TARGET RNA USING REAL-TIME PCR. NEGATIVE 2019_NCOV RT-PCR RESULTS DO NOT PRECLUDE 2019_NCOV INFECTION AND SHOULD NOT BE USED THE SOLE BASIS FOR PATIENT MANAGEMENT DECISIONS. Specimen source [Identifier] of Unspecified specimen Laboratory mikki t result [facility] ([facility] [place]) Employed In [employer] [facility] [employer] Laboratory test result [facility] ([facility] [place]) First Test Laboratory test result ME DENT ([facility] [place]) Symptomatic Laboratory test result M EDENT ([facility] [place]) Icu Laboratory test result ME D[facility] ([facility] [place]) Patient was hospitalized because of this condition Laboratory test re sult [facility] ([facility] [place]) Illness or injury onset date and time Laboratory test result [facility] ([facility] [place]) Laboratory test result [facility] ([facility] [place]) Congregate Care Set Laboratory test result [facility] ([facility] [place]) ID Date Data Source [id number] 01/20/2020 12:52:00 PM EDT [facility] Name Value Range Interpretation Code Description Data Daphney rce(s) Supporting Document(s) SARS coronavirus 2 RNA [Presence] in Res piratory specimen by ASCENCION with probe detection [facility] This lab was reported by [facility]. ID Date Data Source [id number] 01/20/2020 03:17:15 PM EDT [facility] [place] Name Value Range Interpretation Code Description Data Daphney rce(s) Supporting Document(s) SPECIMEN DESCRIPTION [facility] [place] COVID19 RESULT (NDET) [facility] THIS ASSAY AMPLIFIES AND DETECTSTHE TARG ET RNA USING REAL-TIME PCR.NEGATIVE 2019_NCOV RT-PCR RESULTS DONOT PRECLUDE 2019_NCOV INFECTION ANDSHOULD NOT BE USED THE SOLE BASISFOR PATIENT MANAGEMENT DECISIONS. COMMENT [facility] [place] [facility] [place] UNDER AN EMERGENCY USE AUTHORIZATION(EUA ) FOR THE DETECTION AND/OR DIAGNOSISOF THE VIRUS THAT CAUSES COVID-19.EMAILED TO [facility] AT [phone] FB [phone] JR [phone]. FIRST TEST [facility] [place] [facility] [place] EMPLOYED IN [facility] [place] SYMPTOMATIC [facility] [place] DATE OF SYMPT ONSET [facility] [place] HOSPITALIZED [facility] [place] [facility] CONGREGATE CARE SET [facility] [place] [facility] ID Date Data Source [id number] 01/20/2020 11:14:00 AM EDT [facility] ([facility] [place]) Name Value Range Interpretation Code Description Data Daphney rce(s) Supporting Document(s) Bacteria identified in Urine by Culture Laboratory test result [facility] ([facility] [place]) SPECIMEN DESCRIPTION MIDSTREAM UR INE,CLEAN CATCH CULTURE [...] CIPROFLOXACIN >=8 RESISTANT ID Date Data Source [id number] 01/22/2020 08:23:27 AM EDT [facility] [place] [facility] - CORE SPECIMEN DESCRIPTION MIDSTREAM UR [...] rce(s) Supporting Document(s) ID Date Data Source [id number] 01/20/2020 10:51:00 AM EDT [facility] ([facility] [place]) Name Value Range Interpretation Code Description Data Daphney rce(s) Supporting Document(s) Glucose [Presence] in Urine Laboratory test result [facility] ([facility] [place]) Protein [Presence] in Urine by Test strip Laboratory test result [facility] ([facility] [place]) Blood [Presence] in Urine by Visual Laboratory test result [facility] ([facility] [place]) Ua Leuko Laboratory test result ME DENT ([facility] [place]) Ua Nitrite Laboratory test result ME DENT ([facility] [place]) Color of Urine Laboratory test result [facility] (Associated Credit Director [facility]) Ketones [Presence] in Urine by Test strip Laboratory test result [facility] (Associated Credit Director [facility]) Clarity of Urine Laboratory test result [facility] (Associated Credit Director [facility]) pH of Urine by Test strip 5.5 5.0-7.5 [facility] (Associated Credit Director [facility]) Ua Specific [place] 1.020 1.003-1.030 MEDE NT (Associated Credit Director [facility]) Urobilinogen [Mass/volume] in Urine by Test strip 0.2 E.U./dL 0.0-1.0 [facility] (Associated Credit Director [facility]) Bilirubin.total [Presence] in Urine by Test strip Laboratory test res ult [facility] (Associated Credit Director [facility]) ID Date Data Source [id number] 10/24/2019 07:45:00 AM EDT [facility] Name Value Range Interpretation Code Description Data Daphney rce(s) Supporting Document(s) Colonoscopy [facility] ERGWGu7gNdAYNnBuPTHuGhbFQZoaIHsgAQJsM9B9CTocDy2NDVxtesNuFYEqDf9+LUIwLH9mxy8gGXNh gMy 3nAFRuMqddP4EiLTDry33HYJSqQTlTXfHxAxWsIkVbMNxuUBCsQJH6AxSuCkhtOO8kBTV4KSGuUYgkLR JyMVuzGOU2NeokNO4eSOwwUMliLs3KJA9im8FtJGMiFKAmBwnBQKrcFIxlVTUdCMApPLToG745rrRcLt 7EcQQpARo2QKCjQjF1FXGuTsA4OFUcSf5hIiMcx6Nr B9YvFQa9O5uLPirgE8CnMYdqNC8oMHN3JJMyOk4BeGboRNgrHTYCY4piBdMwPKLxEXMCOo2+Pj4+DWVu ER0ukn25NWYbs3DoEMh1P5S9tMCpX2HbY8VfMYMumNERa5atZdZfYXR7WBWpMcriBU9RZBJemNLgCBMg GUzeUR2mxnCygXC7PZ7ZuUrbMHLrIQOKBa3+Pi9QYX LjopJfAqIlLZHlR34bjQKtnDDfNcehQCDOTR1+ZMLcKO7xws97VSFex5MeFFh1H5rnehx1qHCnYcF5MK DnYyNcIANnFI5dFW7TjQT4bKQdYT5YsDKbHX7HhAElQW0JZ9QuPTP6R5ZicSKdsmTzH6VtIHIwPWHfu1 XbYE7UO4JHVHKfCFXmI1ZnnD3iF2ExN5YtF6Pagzhc YFTPLz8HoJE8yOCpGNFhS6tflFwdzNHfZMqyU0DomCOKCSJZy03oz92rimTqBR4+y5TsCGErIOx46gx1 ZVAcX/myTJDXJvo3NNpnUHYrSsHCiu4lV0dzAiF3SZz4ZlsriMO6B2eHwWOZ9//izap0ggr1ub/eD+/z 8ILOfm2+o0xp7sAy3hUw9AOOXKwcBMJHzKXGBXER88 pocOk4LGklsAdxwUgS+AZhKROWfMRmp8tZ6S2Xo1TZsyThSrD73+Tr8wmb3aql2aMb5+Lm/XtyKV0tk6 ZHQyfGwCDmfEv+lvP/TJ52SZpiqFjducRORvXQOoSLK+MnG3GIAQLnGvwKWC8dVXhHUxHly0Dht0S0HV CPDXiFAAS+QgQiISEi/u31+kaZJJAHcd9N1VTKB2yG [file] 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 supervisor+3XKp4rvkpRAK0o+inEWeV/syi0dfzosv4w27NJ+VzkmXfMz7bTntucIlqJmEvOar9uHd1zCPO9VU [file] SfYxh+xkSiGqBYTuaEmjBMhsdSlJXIe64OlveUozZJsmIBd/Lx6Bd6x8c6ra2JsxW1pMWEKzKln/b/gallery or museum curator [file] cgfYj/QPSPG1A8WnPRQGbn8k6o4RGDbJqn9TY578hPZU13kYY3e/6+5NHSDx4u8VQ/Riley++vzmQnUGUM P/YShfyC/MgqkpatYR3f+wI3WHmyGhWUIfwhHv6Cep 5JvwR5ho14PukAQhsnpi1ky3V44yKJU/UuRYex2chFCVPgszgEjBRADpZsBnvtc6NwoRB2BMO35r/7Ua r2GpIQ+VKvlzLyjvpK5k0rqJfUpSC87weD90PWMq280qCYJBDplODkhUVQTrENvDD1v4/fILVo75fUu4 Ox3qqqdPOuziXsaSz4Ekvy+8D4lIxgSdz8ASNf27AH GZQpMYAVhD9b9gp23ZXf8G5m5gtV75+fEo3HFU6XM4JVggxjFYYz3YiPfNMq/bofN9c+AT1gYlMoUItN 4cmQkLh3bSE8Y6Osghq5vLwh5ay7JaZtmYXmS+PeQsd6AaB/XffN//WJCZZ3SOs/T26TsucfsPkchd3N jdZE4qShqtLT1JQfKCiLT2WFwOSq4Szd2WmAc0yHxu gMFb6yFfM8Agb0OsdAuNEJq7oX/h2MZ9VIX5WlfnpBzQP4CKjSg/KqLna5zaBwv79uSB/dlju4HipiMI L2GS0Z034G7tMm+xe4Lr1NG9xiqt5+mVI5TQ29vRbmxbqPzYNkyrp75sdSb+yLsyHV4k8tp71ds6PnAg bnp6VtwFxETktiXFVaaeRchSEzJB1DD2G9VVL4A5eR pXLQXG4tCzy0lcC92h+rlfJJGzw9BEcAgcfZMJsn7qKIqcv+rDGWELsxXZYtEhVlW3/UN2y9ye39VBlr Sruzz3CTOFJU/HPKUGW5+rT/8agHmSucOSHadkOHKX/h9PjgzPW2991mdq8B2oc+NPOP30iUW6sfi5RV CJewlTDZstNgJDzR8hX9XJWOxzp7+bhC+LjXkqhqHd eD5nlGB9/iMPyCwxpoBMpZFtQUodHGlcC+Sanjuana/tJzWqeuJFYw34BHhgv5edf9iq7A8heBrOT7uRZASLO LJbgMqqQxHqN725E3p3cVLsC1WPh5SzsvZSrYqaAbxeJXtA0Tu2nbDLnrb5T9rXhSMC/vBEVuX75io9u myIaSzeZzno1dKoKcttQrRIpaGxmYCNbhw+WQWejjv DEPUTY ADMINISTRATOR/y5pFbR7UboOwB4MskcHqf7GBA7yA+i1hZ79FH2BMFwa79yX4nh37yYci2cmWhK2La+LqsmOEl2l2o [file] Lobster Fisherman/Au9xxYRjcf1KeMqs8s54sUhNPOIec6sJPmvtax2EXR91E49ZJrRbYTgqVvkAvdDqgiXwlqWUnwTfm [file] mEsynewgCf27iq4n9kwixTJ0b/BWoHegkg4Dcywk/T v0z12QtYiwHKpK2ckKu/kFNV+ykKQj1ksWAYQ+Rk/V5qkLjoN/L7NKxc/vxz20Z4ICzjNoYKEeBS/KyQ f/Grw+xHqQD6PGFaDgaaC0ghr8JtrApHhUNh+hOJg9pvQuWikgaLUNBuhEERJt4pn2vA9xedml1BVS9o +BIa05TO2H3WB1dOgr8ipGF754fv/QNBPWJQGK5p2c DF//YbJLb6AoedNS6nZoVhHqpD4eKE2kYC7xad8k2h6dnuNOZs4kGRS54h2tvkYVMrPFOkjFiswYNmdr HKrB5LX9KBMHUVB4K2PcvtFdhuNmWUT0Tmhaj5T1FplGfMgrnZDqdv7gF9ndhygb1SzMdk4fh8K/dpbU 8y57kPEv0kXddJoYihj+DslFz6kW/1TitH7iFoGVRX VE9wbfxhzlaHlrx9g/QlDCnlrriy0meepqabE4O2PB62PM09+4TVgsXel9+y5si5bTMH/6g50/YD1pw7 ipBvA8aBWXFXkEow88zGi1otA3xDkxNcmVvURUAY3OrPJNNY+J9vI6sPnUmw845PF3gugiK0h6Vonj+i SVoDifm8klJ38P/zaAGy5gk2lQRRXZBxavEfruEVtA wqKeklqwUnBY7J0LI8sTYcCold2UXKZ4cnBn1MekYpH+MdDmoy3bS58jcR36U9Qho7TEgahd41Xp9kQc 1uqdsEWXFd1RBRN/i4rM/86OCQXl/5vH+e6VdAxuoB1RPT5of1ImTVVoZDTbPC1ujm8nSiRvWK8rdp05 YM7FGB9hoFmnYoN+IsH6moBooS8UjGi3SSNqVXQwAT i3EgFjBADxO49YX3gjJuBhAW7MRQ4WDQ6gq1HnSBBjHMOgUU3dmf6lJxGfTZ3jxe37IK3PzOy5LEMtS1 JpRQPuCKOtk3DgL2vvhut4jOU0QE2DJTOsCIALQqbYXjM2BNBSGkR2DCKFDKQ1PqPeRHWaOmZYYFGWMk N7ZXKETAAwUNpSVNR2FIONQeLhDAUfPkZ1KUZtEIOD M0M+HT7Ml485RTZeBETUT2ciRm1eGyTpOPTsC3c1SJDwWI6DiKWoEN2KRtHyN5jaHsBrBMSwKB6+c3Ry PDDyMPq39cHjJMQeJZSYnfkw9eYXzhMYaAWk2nNJJWlCZbBxd8r9tpMYt/EbiHQqBpNHgCRnUTOYvMIA OLMNC8rNDpOiGSE5xqMueA6KIG6fg2GwCT4Bk0ZmzoC7ubFoCWo0LQmdJaBSBpTkZJ6E ID Date Data Source [id number] 10/03/2019 01:15:00 PM EDT [facility] [place] Name Value Range Interpretation Code Description Data Daphney rce(s) Supporting Document(s) Follow Up [facility] [place] BIXHMd8fRzGLNkAhBDFqWhzEQQvqZLqwCWTeS0P1NRifNx3RIYbygjMkBQDvIn7+QPDcEG6uza1gAPJg gMy [file] EpZwHYji3V3sDFjm6/architecture instructor+herDBeB1L2WPEnrKGVgA0 [file] VUn7R9tPcbUbCp/IXc5zR0y7/szwNQFgqH6RgkObWu+SdiLaap5y3LDMrvlq6n2XqOMQgO+home care provider/DVUfl/ [file] MgcWnv22D6eprSk4vUvHxnbltzGbiTm4jhUb9JBK5OqNOzVS83jxSEkG0ANon9uiLOhxJ5csvhLu/director of analytics [file] Alexandre+cRr+wzvAGEh7B3gSrWD6O1xTlaW4uLAYB1gcFz/rf2Y+B1KLvtHFK21eU/lBi9bjleXiBWExgSB/ STEzNCtf3QzbJawGQX2/cIldf8RyhS8v53NvkOwp/[facility]//tU9i5N3SnQOyeJ3jK1X6bjJgfS24Fm2c3j [file] maria c+zowMdK1zAcA1g9PzkSShzU/0E9j5Fv7ZrbV35NV6aKltxS4n2t/5Npk43+nhHNxUFY1tyyZk6GIN [file] L8bhMnbGDWAK+JftZdXMWhC52s40D3XU/byY7gGZf6pTjwdI2Tet/consulting technical manager+yBhWHPnf11HnCzrQ/thrXnv 2770h+rUvLqqx1/P/VNrKutkI33XyKj1K8298daN5i CIU104unyMEyhVECugXDqmOTbJt1ISPpQVodxqAdHe0/lM1RKbiBbhr3qm1DON5OPv2FCQln9vmXRj+s +IjaoU0WpYN5u9yAvWr/23RIg8Nqo9z/XJSEBS41gI83xRs1ZGq0xAsliBEQQMdLiuevB/UgUYi3dtOo RIavLUFXv9AmdPzEgZLKzKXg9bXG4w+TsgqMtL+u2Z q0MeGnB90KmJYR1CjiVFlCwtFgh8pM525XRq1blpWRin77khhRa9ei8IZ/+92bK3UyRZZzCUnjrqXxsb ZHLVsua4VJW2NOm/bl9Q9HZZT6kQiHkuAgmcssqzXyYdzE30x4l/p2KInrNeiV89sNR51pZp3rRKjcw6 3jSP2uXClZiQaLvRVsSWTaJ9a2iU8ftVoh3Zv5ly5J 1v4GVLHJCXYOFn0V57WPUNj+kLVEGZI+yvednBCbyhFyqHNH+vEofryOb4gwQ8nhGcrub5oUPUtp/zTX 7YGKQcWvfJGQaggVIJx94gogGxr7xEaJL9AR8lmqp5DAx3uoAiyJnefeeoUWeJ0oE6fLzzXCDJBQvNtK ttOeZ4v0lkj7swDAtLTC+46Wes30b77RECJrYPmlYe gHLUPzkYbFQWsxgSxbTsCzqiq2EKekPxNh0P3eFn80+pDrJL0lEDBwm57YPZ9YSa9Y9RFgR9cWZLtD4Y lGqZuZYe7k76WY+Er2IT+DNbfVavw5C/qiuP9Kywgojg4rqovQzaR5oP7R2/zLzrJw/Hwp6g2WqZNLHh jd3d8f9y/jmBEJUGi28hQ6Lgq/ttrPMw4NFemngON4 shaquille+flaMK+GMzSKqnzS5uPFjXZB+VkDIWN4tgHDZumcU72X8y2jVmIrhzqtkK4AR+srQ4Zaq5j5KIZGm [file] VrKibyCmlK/EKyt5SzMPv1zIj3TmVaEGEz7xFq6whOaoBJwcICb9d5CtT1PVHiIGamhnsrBBZkRhG+gallery or museum curator [file] MdPhq7aH8HSpTm1DN5V+SALON PROFESSIONAL+xcsqEBkqalPJlfnsBYmjyVpPR0xdvnaPsEUVLPRqxFc/iagvgpg3othSL [file] NfQmU0uP3XtVuY3MY1iTuSQMU1BKYfkIMOe4IJ+cranberry grower [file] 7WWllu2GxdGs+P/yJLqXnNdY6AKIwgd084g4NX+ExujYn8ZyCwZA+mary beth+fTzdUfjt6cO8MTkGDi/6+IP [file] RSMXx0H6YaNRf9tL2fJpFqqvS3x/8ve/occup therapist/jfEXjpCGDoWg+OpW2u+ieeC4WYeODtZJX1ptIscCVsgK [file] wsAihIZMCZ8fJPlTakCMVJCXOTOOKDIu2FT4clvqks rYEoKf3TUp/1GdvsBzA1kkfi59PbvtBCrgOFUcYkpEO9ToqrNR5eOZcNADxB2sHYBbRdr9TqNrK8/Y6C cz7YgLow2sS2SDj+5/nVoyr1+3444qhFdgtH5cSVS8BKHM60CemkwvjNzF4B041Dhuk5AkmUkWvWRYu3 AFoa+3KQSnard4dZSLcqJc4cCU2b8wlLgaibUxjcZd dzU1cQsQazQefaJBOWZNfi1kzbvi8kwHbjtIYPNmxc99btMyiBLOCSaF9amwpyAstSSMwTfgtvnbb+vX pp1VEw/dm42ZoGdLA1N4mKOj5OVLqXPrxyG5LWaBW0417McibwBRgM53m41Xtbfpls+bu4AvxtuBzoP4 HlmxSf0U+VMLmbcj+home care provider+WUQbSYQEZHxv6hmw7M1qcx [file] 0jkyN9HVY7hR8+Fur Polisher+Aavu/Venus/av6bPunl4K1SPeQApR5oyUBk6az522FN3/XwkCnANICRxmK+UwgDtA [file] Luis Eduardo/2BrZo6YqxVQeRoX7NYdYOTJQWbimTDNpWap+ID8NlyN/FDgxgdWfqjD1p5jFpnwVPB/QN9BWnFUR SYUFSHWBrjSkOXZwkpTSnkfP4XL4i5vuEtp61tnsZH oatPoEa57nBBY0N8iYAp1KTNdrppF1uIbIW4VujaooqbgU/er5j4+WnsgcSTzXz+u+4epEebgx5+CMil hPfMUeBAJELSLIURcjv2S6oXhUOT2yKxGfJTBGNuirydPyoLC+Ne7+zVTD6BXZ4cH8xSV0lg0O+tMX+1 VAdsK1E+EOuCNilEPeOg7MLAtpr8j/kr3G0Ng5390W c/Dj5/mOTnls+NAkIGna7ePL8pTmloaC2dsL3SodkU4V378wIkQ1rmntz5ExTU4qTMZdtmCNlY5+R4bW ZOUmD8mkXQt0L6Vd2uqJjUt4LpzrEN62YchD2H6sqAYlrEiquBQGvmi4me0b3aqa51Yj6dd8s3wkK8ze PakH+LUQSY7lij4XU3oIQKWRKH7XTQME2QgwubKfOZ [file] [id number] ID Date Data Source [id number] 09/02/2019 10:01:00 AM EDT [facility] ([facility]) Name Value Range Interpretation Code Description Data Daphney rce(s) Supporting Document(s) Urate [Mass/volume] in Serum or Plasma 4.9 mg/dL 3.7-8.6 MEDENT ([facility]) A courtesy copy of this report has been sent to [phone] Calcidiol [Mass/volume] in Serum or Plasma 31.7 ng/mL 30.0-100.0 MEDENT ([facility]ated [facility]) A courtesy copy of this report has been sent to [phone] ID Date Data Source [id number] 09/02/2019 10:01:00 AM EDT [facility] ([facility]) Name Value Range Interpretation Code Description Data Daphney rce(s) Supporting Document(s) Urea nitrogen [Mass/volume] in Serum or Plasma 21 mg/dL 8-27 MEDENT ([facility]ated [facility]) A courtesy copy of this report has been sent to [phone] Glucose [Mass/volume] in Serum or Plasma 136 mg/dL 65-99 MEDENT ([facility]ated [facility]) A courtesy copy of this report has been sent to [phone] eGFR If NonAfricn Am 62 mL/min/1.73 MEDENT ([facility]) A courtesy copy of this report has been sent to [phone] Creatinine [Mass/volume] in Serum or Plasma 1.24 mg/dL 0.76-1.27 MEDENT ([facility]) A courtesy copy of this report has been sent to [phone] Sodium 144 mmol/L 134-144 MEDENT ([facility]) A courtesy copy of this report has been sent to [phone] BUN/Creatinine Ratio 17 10-24 MEDE NT ([facility]ated [facility]) A courtesy copy of this report has been sent to [phone] eGFR If Africn Am 72 mL/min/1.73 MED ENT ([facility]) A courtesy copy of this report has been sent to [phone] Carbon Dioxide, Total 24 mmol/L 20-29 MED ENT ([facility]) A courtesy copy of this report has been sent to [phone] Chloride 105 mmol/L 96-106 MEDENT ([facility]) A courtesy copy of this report has been sent to [phone] Potassium 4.6 mmol/L 3.5-5.2 MEDENT (Associ ated [facility] Director [facility]) A courtesy copy of this report has been sent to [phone] Calcium [Mass/volume] in Serum or Plasma 9.4 mg/dL 8.6-10.2 MED[facility] ([facility]) A courtesy copy of this report has been sent to [phone] ID Date Data Source [id number] 09/03/2019 04:06:00 AM EDT [facility] Name Value [...] mg/dL 8.6-10.2 [facility] ID Date Data Source [id number] 09/03/2019 05:06:00 AM EDT [facility] Name Value Range Interpretation Code Description Data Daphney rce(s) Supporting Document(s) Vitamin D, 25-Hydroxy 31.7 ng/mL 30.0-100.0 [facility] Vitamin D deficiency has been defined by the [place] [employer] and an Endocrine Society practice guideline as alevel of serum 25-OH vitamin D less than 20 ng/mL (1,2).The Endocrine Society went on to further define vitamin Dinsufficiency as a level between 21 and 29 ng/mL (2).1. IOM ([place] of [employer]). 2010. Dietary reference intakes for calcium and D. [place]: The National Academies Press.2. Deonna MF, Dustin TERRY, Raulito LEE, et al. Evaluation, treatment, and prevention of vitamin D deficiency: an Endocrine Society clinical practice guideline. JCEM. 2010; 96(7):1911-30. ID Date Data Source [id number] 09/03/2019 08:08:00 AM EDT [facility] Name Value Range Interpretation Code Description Data Daphney rce(s) Supporting Document(s) Uric Acid 4.9 mg/dL 3.7-8.6 [facility] Therapeutic ta rget for gout patients: <6.0 ID Date Data Source [id number] 08/22/2019 12:00:00 PM EDT MEDENT ([facility]) Name Value Range Interpretation Code Description Data Daphney rce(s) Supporting Document(s) Laboratory test finding (navigational concept) Laboratory test result MEDENT ([facility]) ID Date Data Source [id number] 08/22/2019 12:00:00 PM EDT MEDENT ([facility]oc iated [facility] Director [facility]) Name Value Range Interpretation Code Description Data Daphney rce(s) Supporting Document(s) 24 hr Creatinine 1577 mg/d MEDENT ( Associated [facility] Director [facility]) Source of Specimen: Urine 24 hr Calcium per 24 hr Creatinine 50 mg/g 34-196 MED[facility] ([facility]ated [facility]) Source of Specimen: Urine 24 hr Calcium per Kilogram Body Weight 0.6 mg/d/kg MEDENT ([facility]ated [facility]) Source of Specimen: Urine 24 hr Creatinine per Kilogram Body Weight 12.3 mg/d/kg 11.9-24.4 [facility] ([facility]ated [facility]) Source of Specimen: Urine ID Date Data Source [id number] 08/22/2019 12:00:00 PM EDT MEDENT ([facility]oc iated [facility]) Name Value Range Interpretation Code Description Data Daphney rce(s) Supporting Document(s) 24 hr Chloride 158 mmol/d 70-250 MED[facility] ([facility] sociated [facility] [place]) Source of Specimen: Urine 24 hr Sulfate 41 mEq/d 20-80 MEDENT (Ass ociated [facility] Director [facility]) Source of Specimen: Urine 24 hr Sodium 179 mmol/d 50-150 MEDENT (Asso ciated Credit Director [facility]) Source of Specimen: Urine 24 hr Potassium 54 mmol/d 20-100 MEDENT (A ssociated Credit Director [facility]) Source of Specimen: Urine 24 hr Ammonium 47 mmol/d 15-60 MEDENT (As sociated Credit Director [facility]) Source of Specimen: Urine 24 hr Urea Nitrogen 13.42 g/d 6.00-14.00 MEDEN T ([facility]ated [facility]) Source of Specimen: Urine 24 hr Magnesium 121 mg/d 30-120 MEDENT (A ssociated Credit Director [facility]) Source of Specimen: Urine 24 hr Phosphorus 1.359 g/d 0.60-1.20 MEDENT ( Associated [facility]) Source of Specimen: Urine This value shows an increased risk factor of 1, where 0 is normal and 7 is extremely high. Protein Catabolic Rate 0.8 g/kg/d 0.8-1.4 [place] DENT (Associated [facility] Director [facility]) Source of Specimen: Urine ID Date Data Source [id number] 08/22/2019 12:00:00 PM EDT MEDENT ([facility]oc iated [facility] Director [facility]) Name Value Range Interpretation Code Description [facility] Supporting Document(s) Interpretations Collection A Laboratory test result MEDENT (Associated [facility] Director [facility]) Source of Specimen: Urine : Urine pH [...] as noted above. ID Date Data Source [id number] 08/22/2019 12:00:00 PM EDT [facility] Name Value Range Interpretation Code Description Data Daphney rce(s) Supporting Document(s) pH 5.441 5.800-6.200 MEDENT ([facility] [place]) Source of Specimen: Urine This value shows an increased risk factor of 4, where 0 is normal and 7 is extremely high. 24 hr Uric Acid 0.317 g/d MEDENT (Associ [facility] Credit Director [facility]) Source of Specimen: Urine 24 hr Calcium 80 mg/d [facility]) Source of Specimen: Urine 24 hr Citrate 109 mg/d MEDENT (Associat ed Credit Director [facility]) Source of Specimen: Urine This value shows an increased risk factor of 5, where 0 is normal and 7 is extremely high. Urine Volume 1.98 L/d 0.50-4.00 MEDENT (Asso ciated Credit Director [facility]) Source of Specimen: Urine This value shows an increased risk factor of 1, where 0 is normal and 7 is extremely high. 24 hr Oxalate 105 mg/d 20-40 MEDENT (Ass ociated Credit Director [facility]) Source of Specimen: Urine This value shows an increased risk factor of 5, where 0 is normal and 7 is extremely high. Supersaturation CaP 0.15 0.50-2.00 MEDEN T (Associated [facility] Director [facility]) Source of Specimen: Urine Supersaturation Uric Acid 0.79 MED[facility] (Associated [facility] Director [facility]) Source of Specimen: Urine Supersaturation CaOx 7.14 6.00-10.00 MEDE NT (Associated [facility] Director [facility]) Source of Specimen: Urine This value shows an increased risk factor of 3, where 0 is normal and 7 is extremely high. ID Date Data Source [id number] 08/17/2019 10:53:00 AM EDT MEDENT ([facility]) Name Value Range Interpretation Code Description Data Daphney rce(s) Supporting Document(s) Red Blood Count 4.43 4.00-5.40 [facility] ([facility]io [facility]) Platelets 155 172-450 MED[facility] (Cardiology [facility]) White Blood Count 8.2 5.0-10.0 [facility] (Card [facility]) Hematocrit 41.6 [facility] ([facility]) Hemoglobin 14.0 [facility] ([facility]) ID Date Data Source [id number] 08/17/2019 10:53:00 AM EDT [facility] ([facility]) Name Value Range Interpretation Code Description Data Daphney rce(s) Supporting Document(s) Calcium [Mass/volume] in Serum or Plasma 7.9 [facility] ([facility]) Potassium [Moles/volume] in Serum or Plasma 3.9 [facility] ([facility]) Chloride [Moles/volume] in Serum or Plasma 111 [facility] ([facility]) Sodium 142 MED[facility] (Cardiology [facility]) Carbon dioxide, total [Moles/volume] in Serum or Plasma 24 [facility] ([facility]) Glucose 125 83-110 [facility] ([facility]) Blood Urea Nitrogen 15 7-18 MED[facility] (Ca [facility]diology [facility]) Creatinine 1.08 0.6-1.0 [facility] ([facility]) Glomerular filtration rate/1.73 sq M.pre dicted [Volume Rate/Area] in Serum or Plasma by Creatinine-based formula (MDRD) Laboratory test result [facility] ([facility]) ID Date Data Source [id number] 08/16/2019 10:50:00 AM EDT [facility] ([facility]) Name Value Range Interpretation Code Description Data Daphney rce(s) Supporting Document(s) Triglycerides 154 [facility] ([facility]iolo [facility]) HDL 28 MED[facility] (Cardiology [facility]) Cholesterol in LDL [Mass/volume] in Serum or Plasma by calculation 32 [facility] ([facility]) Cholesterol 91 [facility] ([facility]) Chol/HDL Ratio 3.250 [facility] ([facility]iol [facility]) ID Date Data Source [id number] 08/16/2019 10:50:00 AM EDT [facility] ([facility]) Name Value Range Interpretation Code Description Data Daphney rce(s) Supporting Document(s) Albumin [Mass/volume] in Serum or Plasma 3.1 [facility] ([facility]) Carbon dioxide, total [Moles/volume] in Serum or Plasma 25 [facility] ([facility]) Calcium [Mass/volume] in Serum or Plasma 7.8 [facility] ([facility]) Alanine aminotransferase [Enzymatic activity/volume] in Serum or Pl asma 28 [facility] ([facility]) Chloride [Moles/volume] in Serum or Plasma 112 [facility] ([facility]) Potassium [Moles/volume] in Serum or Plasma 3.8 [facility] ([facility]) Alkaline phosphatase [Enzymatic activity/volume] in Serum or Plasma 7 6 [facility] ([facility]) Sodium 144 [facility] ([facility]) Protein [Mass/volume] in Serum or Plasma 6.6 [facility] ([facility] [place]) Aspartate aminotransferase [Enzymatic activity/volume] in Serum or Plasma 15 [facility] ([facility]) Urea nitrogen [Mass/volume] in Serum or Plasma 18 [facility] ([facility]) Glucose 139 83-110 [facility] Creatinine For GFR 1.07 [facility] (Car [facility]ology [facility]) ID Date Data Source [id number] 08/15/2019 10:47:00 AM EDT MED[facility] ([facility]) Name Value Range Interpretation Code Description Data Daphney rce(s) Supporting Document(s) White Blood Count 9.5 5.0-10.0 [facility] ([facility]) Platelets 174 172-450 [facility] Hematocrit 43.1 [facility] ([facility]) Red Blood Count 4.55 4.00-5.40 [facility] ([facility]) Hemoglobin 14.2 [facility] ([facility]) ID Date Data Source [id number] 08/15/2019 10:47:00 AM EDT MED[facility] ([facility]) Name Value Range Interpretation Code Description Data Daphney rce(s) Supporting Document(s) Magnesium Level 1.9 1.8-2.4 [facility] ([facility]) Troponin Laboratory test result [facility] ([facility]) ID Date Data Source [id number] 08/15/2019 10:47:00 AM EDT [facility] ([facility]) Name Value Range Interpretation Code Description Data Daphney rce(s) Supporting Document(s) Creatine kinase [Enzymatic activity/volume] in Serum or Plasma 88 [facility] ([facility]) MB/CK Relative 1.82 [facility] ([facility]iol [facility]) CPK-MB 1.6 [facility] ID Date Data Source [id number] 08/15/2019 10:47:00 AM EDT MED[facility] ([facility]) Name Value Range Interpretation Code Description Data Daphney rce(s) Supporting Document(s) Albumin [Mass/volume] in Serum or Plasma 3.6 [facility] ([facility]) Alanine aminotransferase [Enzymatic activity/volume] in Serum or Pl asma 30 [facility] ([facility]) Carbon dioxide, total [Moles/volume] in Serum or Plasma 26 [facility] ([facility]) Calcium [Mass/volume] in Serum or Plasma 8.1 [facility] ([facility]) Potassium [Moles/volume] in Serum or Plasma 4.6 [facility] ([facility]) Chloride [Moles/volume] in Serum or Plasma 110 [facility] ([facility]) Alkaline phosphatase [Enzymatic activity/volume] in Serum or Plasma 9 4 [facility] ([facility]) Protein [Mass/volume] in Serum or Plasma 7.0 [facility] ([facility]) Sodium 142 MED[facility] (Cardiology [facility]) Urea nitrogen [Mass/volume] in Serum or Plasma 19 [facility] ([facility]) Aspartate aminotransferase [Enzymatic activity/volume] in Serum or Plasma 24 [facility] ([facility]) Creatinine For GFR 1.19 [facility] (Car [facility]oly [facility]) Glucose 108 83-110 MED[facility] ([facility]) ID Date Data Source [id number] 05/21/2019 01:44:00 PM EST MEDENT ([facility] [place]) Name Value Range Interpretation Code Description Data Daphney rce(s) Supporting Document(s) Bacteria identified in Urine by Culture Laboratory test result [facility] ([facility] [place]) SPECIMEN DESCRIPTION MIDSTREAM UR INE,CLEAN CATCH CULTURE RESULTS MIXED UROGENITAL IRENE; PLEASE SUBMIT A NEW SPEC IMEN IF CLINICALLY INDICATED. REPORT STATUS FINAL 05/22/2019 ID Date Data Source [id number] 05/22/2019 01:13:17 PM EST Laboratory [place] [facility] SPECIMEN DESCRIPTION MIDSTREAM UR INE,CLEAN CATCHCULTURE RESULTS MIXED UROGENITAL IRENE; PLEASE SUBMIT A NEW SPEC IMEN IF CLINICALLY INDICATED.REPORT STATUS FINAL 05/22/2019 Name Value Range Interpretation Code Description Data Daphney rce(s) Supporting Document(s) ID Date Data Source [id number] 05/21/2019 01:03:00 PM EST MED[facility] ([facility] [place]) Name Value Range Interpretation Code Description Data Daphney rce(s) Supporting Document(s) Protein [Presence] in Urine by Test strip Laboratory test result MEDENT ([facility]ated [facility]) Ua Nitrite Laboratory test result ME DENT ([facility]ated [facility]) Glucose [Presence] in Urine Laboratory test result MEDENT ([facility]ated [facility]) Ua Leuko Laboratory test result ME DENT ([facility]) Blood [Presence] in Urine by Visual Laboratory test result MEDENT ([facility]ated [facility]) Ketones [Presence] in Urine by Test strip Laboratory test result MED[facility] ([facility]ated [facility]) Color of Urine Laboratory test result MED[facility] ([facility]ated [facility]) Clarity of Urine Laboratory test result MED[facility] (Associated [facility] Director [facility]) Ua Specific [place] 1.010 1.003-1.030 MEDE NT (Associated [facility] Director [facility]) pH of Urine by Test strip 5.5 5.0-7.5 MED[facility] (Associated [facility] Director [facility]) Bilirubin.total [Presence] in Urine by Test strip Laboratory test res ult MEDENT ([facility]ated [facility]) Urobilinogen [Mass/volume] in Urine by Test strip 0.2 E.U./dL 0.0-1.0 MED[facility] (Associated [facility]) ID Date Data Source [id number] 05/21/2019 12:08:[address] [facility] ABDOMEN KUBCLINICAL HISTORY: Calculus [...] rce(s) Supporting Document(s) ID Date Data Source [id number] 04/28/2019 07:54:00 AM EST MED[facility] ([facility]oc iated [facility]) Name Value Range Interpretation Code Description Data Daphney rce(s) Supporting Document(s) Prostate specific Ag [Mass/volume] in Serum or Plasma 0.5 ng/mL 0.0- 4.0 MED[facility] ([facility] [place]) [place] ECLIA methodology. According to the [place] [employer], Serum PSA should decrease and [...] of malignant disease. ID Date Data Source [id number] 04/29/2019 07:05:00 AM EST [facility] Name Value Range Interpretation Code Description Data Daphney rce(s) Supporting Document(s) Prostate Specific Ag, Serum 0.5 ng/mL 0.0-4.0 [facility] [place] ECLIA methodology. According to th e [place] [employer], Serum PSA shoulddecrease and remain at undetectable levels after radicalprostatectomy. The AUA defines biochemical recurrence as an initialPSA value 0.2 ng/mL or greater followed by a subsequent confirmatoryPSA value 0.2 ng/mL or greater.Values obtained with different assay methods or kits cannot be usedinterchangeably. Results cannot be interpreted as absolute evidenceof the presence or absence of malignant disease. ID Date Data Source [id number] 04/21/2019 12:00:00 PM EST MEDENT ([facility]oc iated [facility]) Name Value Range Interpretation Code Description Data Daphney rce(s) Supporting Document(s) Laboratory test finding (navigational concept) Laboratory test result MEDENT ([facility]ated [facility]) ID Date Data Source [id number] 04/21/2019 12:00:00 PM EST MEDENT (Assoc iated Credit Director [facility]) Name Value Range Interpretation Code Description Data [facility] rce(s) Supporting Document(s) 24 hr Creatinine 1731 mg/d MEDENT ( Associated Credit Director [facility]) Source of Specimen: Urine 24 hr Calcium per Kilogram Body Weight 0.5 mg/d/kg MEDENT (Associated Credit Director [facility]) Source of Specimen: Urine 24 hr Creatinine per Kilogram Body Weight 14.2 mg/d/kg 11.9-24.4 MED[facility] (Associated [facility] Director [facility]) Source of Specimen: Urine 24 hr Calcium per 24 hr Creatinine 36 mg/g 34-196 MED[facility] (Associated Credit Director [facility]) Source of Specimen: Urine ID Date Data Source [id number] 04/21/2019 12:00:00 PM EST [facility] Name Value Range Interpretation Code Description Data [facility] Supporting Document(s) 24 hr Chloride 244 mmol/d 70-250 MEDENT (As sociated Credit Director [facility]) Source of Specimen: Urine This value shows an increased risk factor of 2, where 0 is normal and 7 is extremely high. 24 hr Sulfate 42 mEq/d 20-80 MEDENT (Ass ociated Credit Director [facility]) Source of Specimen: Urine 24 hr Ammonium 75 mmol/d 15-60 MEDENT (As sociated Credit Director [facility]) Source of Specimen: Urine 24 hr Potassium 71 mmol/d 20-100 MEDENT (A ssociated Credit Director [facility]) Source of Specimen: Urine 24 hr Phosphorus 1.728 g/d 0.60-1.20 MEDENT ( Associated Credit Director [facility]) Source of Specimen: Urine This value shows an increased risk factor of 3, where 0 is normal and 7 is extremely high. 24 hr Sodium 245 mmol/d 50-150 MEDENT (Asso ciated Credit Director [facility]) Source of Specimen: Urine This value shows an increased risk factor of 2, where 0 is normal and 7 is extremely high. 24 hr Magnesium 168 mg/d 30-120 MEDENT (A ssociated Credit Director [facility]) Source of Specimen: Urine 24 hr Urea Nitrogen 16.50 g/d 6.00-14.00 MEDEN T (Associated [facility] Director [facility]) Source of Specimen: Urine This value shows an increased risk factor of 1, where 0 is normal and 7 is extremely high. Protein Catabolic Rate 1.0 g/kg/d 0.8-1.4 ME JAVED ([facility] [place]) Source of Specimen: Urine ID Date Data Source [id number] 04/21/2019 12:00:00 PM EST ANNAMARIENATALY ([facility]) Name Value Range Interpretation Code Description Data Daphney rce(s) Supporting Document(s) Interpretations Collection A Laboratory test result ALFRED ([facility] [place]) Source of Specimen: Urine Instructional Design Specialist's Note: At least one urine analyte was [...] = 42 meq/d). ID Date Data Source [id number] 04/21/2019 12:00:00 PM EST MEDENT ([facility]) Name Value Range Interpretation Code Description Data Daphney rce(s) Supporting Document(s) 24 hr Oxalate 168 mg/d 20-40 MEDENT ([facility] [place]) Source of Specimen: Urine This value shows an increased risk factor of 5, where 0 is normal and 7 is extremely high. 24 hr Uric Acid 0.345 g/d MEDENT ([facility]) Source of Specimen: Urine pH 5.508 5.800-6.200 MEDENT ([facility] [place]) Source of Specimen: Urine This value shows an increased risk factor of 3, where 0 is normal and 7 is extremely high. 24 hr Calcium 62 mg/d MEDENT ([facility]) Source of Specimen: Urine 24 hr Citrate Laboratory test result MEDENT ([facility]) Source of Specimen: Urine This value shows an increased risk factor of 5, where 0 is normal and 7 is extremely high. Supersaturation CaOx 4.50 6.00-10.00 MEDE NT ([facility]) Source of Specimen: Urine Urine Volume 3.03 L/d 0.50-4.00 MEDENT ([facility]) Source of Specimen: Urine Supersaturation CaP 0.08 0.50-2.00 MEDEN T ([facility]) Source of Specimen: Urine Supersaturation Uric Acid 0.52 MEDENT ([facility]) Source of Specimen: Urine Procedure Social History Code Duration Value Status Description Data Source(s ) Smoking 03/02/2020 12:00:00 AM EST Former Cigarette Smoker com pleted Former Cigarette Smoker MEDENT ([facility]) Alcohol intake 02/25/2020 12:00:00 AM EST No completed [facility] Cigarette pack-years 02/25/2020 12:00:00 AM EST UNK completed [facility] Cigarettes smoked current (pack per day) - Reported 02/25/20 20 12:00:00 AM EST UNK completed [facility] Smoking 02/25/2020 12:00:00 AM EST Former smoker completed Former smoker [facility] Smoking 01/22/2020 05:47:00 PM EDT Former Smoker completed Former Smoker [facility] Smoking 01/20/2020 02:06:00 PM EDT Former Smoker completed Former Smoker [facility] Smoking 09/02/2019 12:00:00 AM EDT Patient is a former smoker completed Patient is a former smoker [facility]NATALY ([facility]) Vital Signs ID Date Data Source UNK Name Value Range Interpretation Code Description Data Source(s) Body mass index (BMI) [Ratio] 44.7 kg/m2 44.7 k g/m2 [facility]NATALY ([facility]) Body height 68 [in_i] 68 [in_i] [facility] ([facility]) 5'8" Body weight 294.00 [lb_av] 294.00 [lb_av] MEDEN T ([facility]) Oxygen saturation in Arterial blood by Pulse oximetry 98 % 98 % [facility] Respiratory rate 16 /min 16 /min [facility] Heart rate 78 /min 78 /min [facility] Diastolic blood pressure 70 mm[Hg] 70 mm[Hg] [facility] Systolic blood pressure 128 mm[Hg] 128 mm[Hg] [facility] Body temperature 98.1 [degF] 98.1 [degF] MEDNATALY ([facility]) Body temperature 36.72 Aydee 36.72 Aydee [facility] Body mass index (BMI) [Ratio] 43.79 kg/m2 43.79 kg/m2 MEDENT ([facility]) Body weight 130.636 kg 130.636 kg [facility] ([facility]) Body weight 288.00 [lb_av] 288.00 [lb_av] MEDEN T ([facility]) Body height 67.99 [in_i] 67.99 [in_i] MEDNATALY ([facility]) 5'7.99" Body mass index (BMI) [Ratio] 43.79 kg/m2 43.79 kg/m2 [facility] Body weight 130.636 kg 130.636 kg [facility] Body height 172.7 cm 172.7 cm [facility] Heart rate 68 /min 68 /min [facility] ([facility]) Diastolic blood pressure 85 mm[Hg] 85 mm[Hg] MED[facility] ([facility]) Systolic blood pressure 115 mm[Hg] 115 mm[Hg] M EDENT ([facility]) Body mass index (BMI) [Ratio] 45.3 kg/m2 45.3 k g/m2 [facility] ([facility]) Body weight 135.173 kg 135.173 kg [facility] ([facility]) Body weight 298.00 [lb_av] 298.00 [lb_av] MEDEN T ([facility]) Body height 68 [in_i] 68 [in_i] MEDENT ([facility]) 5'8" Body temperature 36.5 aydee Normal (applies to non-numeric results) 36.5 aydee [facility] Respiratory rate 19 min Normal (applies to non-numeric results) 19 min [facility] Heart rate 63 min Normal (applies to non-numeric resul ts) 63 min [facility] Diastolic blood pressure 80 mm[Hg] Normal (applies to non-numeric results) 80 mm[Hg] [facility] Systolic blood pressure 156 mm[Hg] Normal (applies t o non-numeric results) 156 mm[Hg] [facility] Deprecated Oxygen saturation in Capillary blood by Oximetry 96 % Normal (applies to non-numeric results) 96 % [facility] Body weight Measured 134.717 kg Normal (applies to n on-numeric results) 134.717 kg [facility] Body height 171.9072 cm Normal (applies to non-numeric res ults) 171.9072 cm [facility] Body mass index (BMI) [Ratio] 45.16 kg/m2 No rmal (applies to non-numeric results) 45.16 kg/m2 [facility] Body temperature 36.8 aydee Normal (applies to non-numeric results) 36.8 aydee [facility] Respiratory rate 20 min Normal (applies to non-numeric results) 20 min [facility] Heart rate 73 min Normal (applies to non-numeric resul ts) 73 min [facility] Diastolic blood pressure 72 mm[Hg] Normal (applies to non-numeric results) 72 mm[Hg] [facility] Systolic blood pressure 116 mm[Hg] Normal (applies t o non-numeric results) 116 mm[Hg] [facility] Body weight Measured 118.4 kg Normal (applies to n on-numeric results) 118.4 kg [facility] Body height 171.9072 cm Normal (applies to non-numeric res ults) 171.9072 cm [facility] Deprecated Oxygen saturation in Capillary blood by Oximetry 97 % Normal (applies to non-numeric results) 97 % [facility] Body temperature 97.0 [degF] 97.0 [degF] [facility] ([facility]) Heart rate 73 /min 73 /min [facility] ([facility]) Diastolic blood pressure 84 mm[Hg] 84 mm[Hg] [facility] ([facility]) Systolic blood pressure 133 mm[Hg] 133 mm[Hg] M EDENT ([facility]) Body mass index (BMI) [Ratio] 45.3 kg/m2 45.3 k g/m2 [facility] ([facility]) Body weight 135.173 kg 135.173 kg [facility] ([facility]) Body weight 298.00 [lb_av] 298.00 [lb_av] MEDEN T ([facility]) Body height 68 [in_i] 68 [in_i] [facility] ([facility]) 5'8" Diastolic blood pressure--sitting 68 mm[Hg] 68 mm[Hg] [facility] ([facility]) large cuff, Ra Systolic blood pressure--sitting 122 mm[Hg] 122 mm[Hg] [facility] ([facility]) large cuff, Ra Heart rate 65 /min 65 /min [facility] ([facility]) Body mass index (BMI) [Ratio] 44.8 kg/m2 44.8 k g/m2 [facility] ([facility]) Body height 68 [in_i] 68 [in_i] [facility] ([facility]) 5'8" Body weight 295.00 [lb_av] 295.00 [lb_av] MEDEN T ([facility])
[2020-04-21 17:10] LABS: BASO % 0.4 % (0.0-1.0); EOS # 0.1 10^3/uL (0.0-0.5); EOS % 0.6 % (0.0-3.0); HEMATOCRIT 40.5 % (42.0-52.0); HEMOGLOBIN 13.5 g/dl (13.5-17.5); LYMPH # 1.4 10^3/uL (1.5-5.0); LYMPH % 13.6 % (24.0-44.0); MEAN CORPUSCULAR HEMOGLOBIN 30.9 pg (27.0-33.0); MEAN CORPUSCULAR HGB CONC 33.3 g/dl (32.0-36.5); MEAN CORPUSCULAR VOLUME 92.7 fl (80.0-96.0); MONO # 0.6 10^3/uL (0.0-0.8); MONO % 6.4 % (0.0-5.0); NEUTROPHILS # 7.6 10^3/uL (1.5-8.5); NEUTROPHILS % 75.9 % (36.0-66.0); PLATELET COUNT, AUTOMATED 220 10^3/uL (150-450); RED BLOOD COUNT 4.37 10^6/uL (4.30-6.10)
[2020-04-21] MEDS ORDERED: ACETAMINOPHEN 325 MG TAB PO ONE (17:15)
[2020-04-21 17:23] LABS: INR 1.12; PARTIAL THROMBOPLASTIN TIME 31.3 SECONDS (24.2-38.5); PROTHROMBIN TIME 14.6 SECONDS (12.5-14.3)
[2020-04-21 17:26] LABS: D-DIMER QUANT 1772.36 ng/ml (<500)
[2020-04-21 18:03] LABS: ALBUMIN 2.8 GM/DL (3.2-5.2); ALT/SGPT 25 U/L (12-78); BILIRUBIN,TOTAL 0.7 MG/DL (0.2-1.0); BLOOD UREA NITROGEN 23 MG/DL (7-18); CALCIUM LEVEL 8.4 MG/DL (8.8-10.2); CARBON DIOXIDE LEVEL 24 MEQ/L (21-32); CHLORIDE LEVEL 105 MEQ/L (98-107); CK-MB VALUE MASS 1.1 NG/ML (<3.6); CPK CREATINE PHOSPHOKINASE 161 U/L (39-308); CREATININE FOR GFR 1.65 MG/DL (0.70-1.30); FERRITIN 654 NG/ML (26-388); GLOMERULAR FILTRATION RATE 45.2 (>49); GLUCOSE, FASTING 179 MG/DL (70-100); LDH LACTATE DEHYDROGENASE 413 U/L (87-241); MAGNESIUM LEVEL 1.9 MG/DL (1.8-2.4); MB/CK RELATIVE INDEX 0.68 (< OR =4); POTASSIUM SERUM 4.3 MEQ/L (3.5-5.1); SODIUM LEVEL 138 MEQ/L (136-145); TOTAL PROTEIN 6.7 GM/DL (6.4-8.2); TROPONIN I < 0.02 NG/ML (< 0.10)
--- NOTE | 2020-04-21 19:18 | ECGEPIP ---
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
[2020-04-21] MEDS ORDERED: FLOM0.4C39 PO (19:21)
[2020-04-21] MEDS ORDERED: ACETAMINOPHEN TAB 650MG DOSE (2X325MG) PO PRN (19:45)
[2020-04-21] MEDS ORDERED: MOM 30ML SUSPENSION UDC PO PRN (19:45)
[2020-04-21] MEDS ORDERED: MAALOX 30 ML SUSP *UDC PO PRN (19:45)
[2020-04-21] MEDS ORDERED: NS 1,000 ML IV SCH (20:00)
[2020-04-21] MEDS: cefTRIAXone SOD 1 GM in D5W MINI-BAG PLUS 50 ML IV SCH (20:11)
[2020-04-21] MEDS: dexameTHASONE 4 MG/ML 1ML VIAL (J1100 PER 1MG) IV SCH (20:11)
--- OUTSIDE RECORDS SUMMARY | 2020-04-21 20:17 | CCD ---
Author Author [facility] Organization [facility] Address Unknown Phone Unavailable Care Team Providers Care [employer] Teacher Name Role Phone FIGUEROA, Ranjit SR MD [...] Ranjit SR MD Unavailable Unavailable EMERTON, Ranjit RS MD Unavailable Unavailable EMERTON, Ranjit SR MD [...] E PREET ORTIZ Unavailable Unavailable CATALAN E PRETE ORTIZ Unavailable Unavailable CATALAN E PREET ORTIZ [...] PREET ORTIZ Unavailable Unavailable Khanna, A Soledad MANAGER COUNCIL Unavailable Unavailable Khanna, A Soledad MANAGER COUNCIL Unavailable Unavailable Khanna, A Soledad MANAGER COUNCIL Unavailable Unavailable Khanna, A Soledad MANAGER COUNCIL Unavailable Unavailable Khanna, A Soledad MANAGER COUNCIL Unavailable Unavailable Khanna, A Soledad MANAGER COUNCIL Unavailable Unavailable Khanna, A Soledad MANAGER COUNCIL Unavailable Unavailable Khanna, A Soledad MANAGER COUNCIL Unavailable Unavailable Khanna, A Soledad MANAGER COUNCIL Unavailable Unavailable Khanna, A Soledad MANAGER COUNCIL Unavailable Unavailable Khanna, A Soledad MANAGER COUNCIL Unavailable Unavailable Khanna, A Soledad MANAGER COUNCIL Unavailable Unavailable Khanna, A Soledad MANAGER COUNCIL Unavailable Unavailable Khanna, A Soledad MANAGER COUNCIL Unavailable Unavailable Khanna, A Soledad MANAGER COUNCIL Unavailable Unavailable Khanna, A Soledad MANAGER COUNCIL Unavailable Unavailable Khanna, A Osledad MANAGER COUNCIL Unavailable Unavailable Khanna, A Soledad MANAGER COUNCIL Unavailable Unavailable Khanna, A Soledad MANAGER COUNCIL Unavailable Unavailable Khanna, A Soledad MANAGER COUNCIL Unavailable Unavailable Khanna, A Soledad MANAGER COUNCIL Unavailable Unavailable Khanna, A Soledad MANAGER COUNCIL Unavailable Unavailable Khanna, A Soledad MANAGER COUNCIL Unavailable Unavailable Khanna, A Soldead MANAGER COUNCIL Unavailable Unavailable Khanna, A Soledad MANAGER COUNCIL Unavailable Unavailable Khanna, A Soledad MANAGER COUNCIL Unavailable Unavailable Khanna, A Soledad MANAGER COUNCIL Unavailable Unavailable Khanna, A Soledad MANAGER COUNCIL Unavailable Unavailable Khanna, A Soledad MANAGER COUNCIL Unavailable Unavailable Khanna, A Soledad MANAGER COUNCIL Unavailable Unavailable Khanna, A Soledad MANAGER COUNCIL Unavailable Unavailable Khanna, A Soledad MANAGER COUNCIL Unavailable Unavailable Khanna, A Soledad MANAGER COUNCIL Unavailable Unavailable Khanna, A Soledad MANAGER COUNCIL Unavailable Unavailable Khanna, A Soledad MANAGER COUNCIL Unavailable Unavailable Khanna, A Soledad MANAGER COUNCIL Unavailable Unavailable Khanna, A Soledad MANAGER COUNCIL Unavailable Unavailable Khanna, A Soledad MANAGER COUNCIL Unavailable Unavailable Khanna, A Soledad MANAGER COUNCIL Unavailable Unavailable Khanna, A Soledad MANAGER COUNCIL Unavailable Unavailable Khanna, A Soledad MANAGER COUNCIL Unavailable Unavailable Khanna, A Soledad MANAGER COUNCIL Unavailable Unavailable Khanna, A Soledad MANAGER COUNCIL Unavailable Unavailable Khanna, A Soledad MANAGER COUNCIL Unavailable Unavailable Khanna, A Soledad MANAGER COUNCIL Unavailable Unavailable Khanna, A Soledad MANAGER COUNCIL Unavailable Unavailable Khanna, A Soledad MANAGER COUNCIL Unavailable Unavailable Khanna, A Soledad MANAGER COUNCIL Unavailable Unavailable Khanna, A Soledad MANAGER COUNCIL Unavailable Unavailable Derosalia, R Sarthak ORTIZ Unavailable [...] (Victor Manuel) MD Unavailable Unavailable Tin, Keturah Rozian (Victor Manuel) MD Unavailable Unavailable Tin, Keturah [...] Sarthak ORTIZ Unavailable Unavailable Derosalia, R Sarthak ROTIZ Unavailable Unavailable Derosalia, R Sarthak ORTIZ Unavailable [...] R Sarthak ORTIZ Unavailable Unavailable Derosalia, R Satrhak ORTIZ Unavailable Unavailable Derosalia, R Sarthak ORTIZ [...] Unavailable Unavailable Nilay PRIDE MD Unavailable Unavailable Nliay PRIDE MD Unavailable Unavailable Nilay PRIDE MD [...] Tate Alegria MD Unavailable Unavailable McHone, Tate lAegria MD Unavailable Unavailable McHone, Tate Alegria MD [...] is protected by Article 27-F of the [facility] Public Health law. If you continue you may have access to information: Regarding HIV / AIDS; Provided by facilities licensed or operated by the [facility] Office of Mental Health; or Provided by the [facility] Office for People With Developmental Disabilities. If such information is present, then the following [facility] mandated warning applies: This information has been [...] law may result in a fine or group home sentence or both. A general authorization for the release of medical or other information is NOT sufficient authorization for further disc losure. Allergies and Adverse Reactions Type Description Substance Reaction Status Data Source(s ) Adverse Reaction Adverse Reaction NSAIDS [facility] ([facility]) Propensity to adverse reactions NSAIDS Nsaids Acti ve [facility] Family History Family Member Name Family Member Gender Family Member Status Date o f Status Description Data Source(s) Unknown Unknown Problem [facility] Unknown Female Problem [facility] Unknown Female Problem [facility] ) Unknown Female Problem [facility] Unknown Female Problem [facility] ) Unknown Female Problem [facility] ([facility]) Encounters Encounter Providers Location Date Indications Data Source(s ) O Attender: Mamadou GREEN 04/13/19 12:34:34 PM EST - 04/13/2020 01:24:27 PM EST [facility] ([facility] ) Outpatient Referrer: Sarthak Montana MD 03/08/2020 11:25: 52 AM EST [facility] Outpatient Referrer: Sarthak Montana MD MOB-MOB.PAT 09:49:23 AM EST - 02/21/2020 09:49:27 AM EST [facility] Inpatient Attender: Sarthak Pemberton DAttender: Gregory Frazier Admitter: Sarthak Montana MDReferrer: Sarthak Montana MD [email or web address] 02/16/2020 0 9:55:13 AM EST - 02/25/2020 01:45:00 PM EST [facility] Patient discharged. Outpatient Referrer: Sarthak Montana MD 02/02/2020 11:42: 03 AM EST [facility] Outpatient Attender: Sarthak Montana MD [place]/ [facility] 02/02/2020 11:40:00 AM EST [facility] In[facility] Attender: QUINTON PRIDE MD 01/22/2020 0 6:37:49 PM EDT Lab [facility] Inpatient Attender: QUINTON PRIDE MDAdmitt er: QUINTON PRIDE MD 01/22/2020 03:40:00 PM EDT - 01/25/2020 04:48:00 PM ES T SEPSIS FROM URINARY TRACT INFECTION FEVER S/P URETERAL STENT [facility] SEPSIS FROM URINARY TRACT INFECTION FEVE R S/P URETERAL STENT Patient discharged. Inpatient Attender: QUINTON PRIDE MD 01/22/2020 0 3:40:00 PM EDT [facility] ( in Healthcare facility) Attender: LA PRIDE MDAdmitter: QUINTON PRIDE MDConsultant: REMBERTO MARTI MD 01/22/2020 03:40:00 PM EDT [facility] Inpatient Attender: Raji Wynne MD 01/20/2020 01:27:5 0 PM EDT Lab [place] [facility] D Attender: Raji Wynne MD 11:54:00 AM EDT - 01/21/2020 02:23:00 PM EDT [facility] Inpatient Attender: Raji Wynne MDAdmitter: Raji Sharp MD 01/20/2020 11:54:00 AM EDT - 01/21/2020 02:23:00 PM EDT RENAL CALCULUS HYDRONEPHROSIS [facility] RENAL CALCULUS HYDRONEPHROSIS Patient discharged. [place] ( in Healthcare facility) Attender: Klaus Wynne MDAdmitter: Raji Wynne MDConsultant: REMBERTO MARTI MD 01/20/2020 11:54:00 AM EDT [facility] Outpatient Attender: SHARON GREEN Physical Therapy 12/30/2019 0 9:15:00 AM EDT [facility] ([facility]) Office Visit Attender: SHARON GREEN Physical Therapy 2019 08:30:00 AM EDT [facility] ([facility]) Outpatient Attender: SHARON GREEN Physical Therapy 11/14/2019 0 5:30:00 PM EDT [facility] ([facility]) Outpatient Attender: SHARON GREEN Physical Therapy 11/07/2019 1 1:00:00 AM EDT [facility] ([facility]) Attender: Keturah Gordon (Jack) MDReferrer: PREET CATALAN MD 10/03/2019 08:20:07 PM EDT [facility] Outpatient Attender: Soledad Khanna NP [place]/ [facility] 09/22/2019 02:30:00 PM EDT [facility] Outpatient Attender: Shanae GREEN Main Office 09/02/2019 10:15:0 0 AM EDT [facility] ([facility]) Outpatient Referrer: Sarthak Montana MD 05/21/2019 12:07: 05 PM EST [facility] Outpatient Attender: Soledad Hernandez/ Isaak landon 05/21/2019 12:00:00 PM EST [facility] ([facility] Medications Medication Brand Name Start Date Product Form Dose Route Admi nistrative Instructions Pharmacy Instructions Status Indications Reaction Description Data Source(s) Blood Pressure Monitor Automatic/Arm 03/15/2020 12:00:00 AM EST active [facility] ([facility]) Tamsulosin hydrochloride 0.4 MG Oral Capsule Tamsulosin HCL 03/14/2020 12:00:00 AM EST ORAL active [facility] ([facility]) Sulfamethoxazole 800 MG / Trimethoprim 160 MG Oral Tablet [B actrim] Bactrim DS 03/08/2020 12:00:00 AM EST ORAL active [facility] ([facility]) normal saline flush 0.9 % injection 3 mL [id number] 02/25/2020 02:00:00 PM EST 3 mL Intravenous active 3 mL , Intravenous, Every 8 hours (scheduled), First dose on Sun02/25/20 at 1400, PACU (only)
flush per protocol, D/C Main IV fluid if appropriate
[facility] Medication administered onsite ondansetron (ZOFRAN) injection 4 mg [id number] 02/25/2020 12:07:2 3 PM EST 4 mg Intravenous active 4 mg, In travenous, Once as needed, nausea, vomiting, Starting Sun02/25/20 at 1207, For 1 dose, PACU (only)
If not given in last 4 hours
[facility] Medication administered onsite Albuterol 0.833 MG/ML / Ipratropium Brom horacio 0.167 MG/ML Inhalant Solution ipratropium-albuterol (DUO-NEB) 0.5-2.5 mg/mL nebulizer solution 3 mL ipratropium-albuterol (DUO-NEB) 0.5-2.5 mg/mL nebulizer solution 3 mL 02/25/2020 12:07:23 PM EST 3 mL Inhalation active 3 mL, Inhalation, Once as needed, shortness of breath, Starting Sun02/25/20 at 1207, For 1 dose, PACU (only) [facility] Medication administered onsite 10 ML [...] or 0.04 mg/kg. Max of 6 doses
[facility] Medication administered onsite HYDROmorphone (DILAUDID) injection 0.5 mg [id number] 02/25/2020 12:07:22 PM EST 0.5 mg Intravenous active 0.5 mg, Intravenous, Every 5 min PRN, severe pain (7-10), Starting Sun02/25/20 at 1207, For 5 doses, PACU (only) [facility] Medication administered onsite fentaNYL Citrate (PF) (SUBLIMAZE) injection 25 mcg [id number] 02/25/2020 12:07:22 PM EST 25 ug Intravenous active 25 mcg, Intravenous, Every 5 min PRN, moderate pain (4 to 6), Starting Sun02/25/20 at 1207, For 5 doses, PACU (only) [facility] Medication administered onsite normal saline flush 0.9 % injection 3 mL [id number] 02/25/2020 10:00:00 AM EST 3 mL Intravenous active 3 mL , Intravenous, Every 8 hours (scheduled), First dose on Sun02/25/20 at 1000, Pre-op
Rapid push positive pressure flushing shall be performed with a 10 cc normal saline syringe to check the PATENCY of a PIV site prior to any infusion therapy initiation unless resistance is met.
[facility] Medication administered onsite tramadol hydrochloride 50 MG Oral Tablet Tramadol HCL 11/07/2019 12:00:00 AM EDT active [facility] Triamcinolone Acetonide 1 MG/ML Topical Cream Triamcinolone Acetonide 09/01/2019 12:00:00 AM EDT active [facility] ([facility]) Nystatin 100 UNT/MG Topical Powder [Nyamyc] Nyamyc 09/01/2019 12:00:00 AM EDT active [facility] ([facility]) Betamethasone 0.5 MG/ML / Clotrimazole 10 MG/ML Topica l Cream Clotrimazole/Betamethasone Dipropionate 09/01/2019 12:00:00 AM EDT active [facility] ([facility]) sildenafil 100 MG Oral Tablet [Viagra] Viagra 09/01/2019 12:00:00 AM EDT ORAL active [facility] ([facility]) Insurance Providers Payer name Policy type / Coverage type Policy ID Covered constitution party ID Covered constitution party's relationship to whitfield Policy [place] Plan Information [facility] [id number] SP [id number] [facility] Health Plans Commercial Insurance Co. [id number] Fe f [id number] SELF PAY ONLY [id number] SP [id number] [facility] MEDICARE [id number] Fe [id number] INSURANCE COVID-19 COVID Fe C OVID [facility] MEDICARE [id number] Fe [id number] [facility] MEDICARE [id number] INSURANCE COVID-19 [id number] [facility] MEDICARE [id number] MEDICARE NICOLE [id number] S [id number] [facility] HEA [id number] S [id number] [facility] HEALTH PLANS CLAIMS DEPT [id number] [facility] [id number] SP [id number] [facility] [id number] SP [id number] [facility] MEDICARE [id number] Fe [id number] MVP PREMIER EXCHANGE [id number] Fe [id number] MEDICARE [id number] Fe [id number] MVP [id number] Fe [id number] MVP [id number] Fe [id number] WELLCARE MEDICARE PI PI Wellcare MCR - To Ppo Commercial [id number] Self [id number] MVP Indemnity Commercial [id number] Self [id number] Wellcare MCR - To Ppo Commercial [id number] Self [id number] Wellcare-Todays Opts Ppo Commercial [id number] Self [id number] MVP Health Plan Medigap Part B [id number] Family Dependent [id number] Wellcare-Todays Opts Ppo Commercial [id number] Self [id number] MVP PREMIER EXCHANGE [id number] Fe [id number] MVP Health Plan Health Maintenance Organization (HMO) [id number] Family Dependent [id number] MEDICARE [id number] Fe [id number] MEDICARE C [id number] S [id number] A MVP HEALTH CARE O [id number] P [id number] MVP Indemnity Commercial [id number] Self [id number] MEDICARE [id number] Fe [id number] A MVP HEALTH CARE HEA [id number] SP [id number] UNAVAILABLE UNAVAILA BLE MEDICARE MCA [id number] S [id number] A MVP HEALTH CARE HEA [id number] SP [id number] MEDICARE PI PI MVP PREMIER EXCHANGE PI PI MEDICARE [id number] SP [id number] A MVP HEALTH CARE [id number] 80 [id number] MVP H [id number] Self [id number] MVP H [id number] Self [id number] MEDICARE A [id number] Self [id number] A [place] Insurance Commercial [id number] Family Dependent [id number] [place] Medigap Part B [id number] Family Depend ent [id number] BS [place] Medigap Part B [id number] BS [place] Medigap Part B [id number] Family Depend ent [id number] MVP (pr) Commercial [id number] Family Dependent [id number] MVP (pr) Commercial [id number] Family Dependent [id number] MVP H [id number] Self [id number] MVP [id number] Fe [id number] [place] Insurance Commercial [id number] Family Dependent [id number] BS [place] Medigap Part B [id number] Family Depend ent [id number] BS [place] Medigap Part B [id number] BS [place] Medigap Part B [id number] Family Depend ent [id number] MVP (pr) Commercial [id number] Family Dependent [id number] [employer] Insurance Commercial [id number] Family Dependent [id number] BS [place] Medigap Part B [id number] Family Depend ent [id number] BS [place] Medigap Part B [id number] BS [place] Medigap Part B [id number] Family Depend ent [id number] MVP (pr) Commercial [id number] Family Dependent [id number] MVP HEALTH CARE [id number] SP [id number] MEDICARE [id number] SP [id number] A MVP HEALTH CARE [id number] SP [id number] MVP PREMIER EXCHANGE [id number] Fe [id number] MVP HEALTH CARE [id number] SP [id number] MVP Indemnity Commercial Self MVP PREMIER EXCHANGE [id number] Fe [id number] MVP Cigna Ppo Commercial Family Dependent MVP Gold Commercial Family Dependent BCBS [place] PPO [id number] EXCELLUS BCBS B [id number] P [id number] [id number] MVP (pr) Commercial Family Dependent [place] Insurance Commercial Family Dependent BS [place] Medigap Part B Family Dependent BS [place] Medigap Part B BS [place] Commercial Family Dependent [id number] Problems, Conditions, and Diagnoses Code Display Name Description Problem Type Effective Dates Data Source(s) N20.1 Calculus of ureter Calculus of ureter Diagnosis 04/2019 08:17:00 AM EST [facility] U07.1 COVID-19 COVID-19 Diagnosis 02/21/2020 09:49:23 AM ES T [facility] Surgeries/Procedures Procedure Description Date Indications Data Source(s) CYSTO W/SIMPLE REMOVAL STONE & STENT 03/08/2020 12:00: 00 AM EST [facility] ([facility]) FL RETROGRADE PYELOGRAM RIGHT FL RETROGRADE PYELOGRAM RIGHT S TAT 02/25/2020 1:02 PM EST 02/25/2020 06:02:09 PM EST [facility] GLUC BLD GLUC MNTR DEV CLEARED FDA SPEC HOME USE POCT GLUCOSE Routine 02/25/2020 12:51 PM EST 02/25/2020 05:51:00 PM EST [facility] GLUC BLD GLUC MNTR DEV CLEARED FDA SPEC HOME USE POCT GLUCOSE Routine 02/25/2020 9:27 AM EST 02/25/2020 02:27:00 PM EST [facility] CYSTO W/INSERT URETERAL STENT 02/25/2020 12:00:[address] [facility] ([facility]) CYSTO W/URETEROSCOPY W/RMVL/MANJ STONES 02/25/2020 12: 00:00 AM EST [facility] ([facility]) CYSTO W/URETEROSCOPY W/LITHOTRIPSY 02/25/2020 12:00:00 AM EST [facility] ([facility]) Echocardiography, Tranthoracic Real-Time Image Documentation 01/23/2020 12:00:00 AM EDT [facility] Electrocardiogram Interpretation & Report Only 020 12:00:00 AM EDT [facility] ([facility]) CYSTO W/INSERT URETERAL STENT 01/20/2020 12:00:00 AM E DT [facility] ([facility]) CT ABDOMEN & PELVIS W/O CONTRAST MATERIAL 01/20/2020 1 2:00:00 AM EDT [facility] ([facility]) X-RAY URINARY TRACT EXAM WITH CONTRAST MATERIAL 2019 12:00:00 AM EDT [facility] ([facility]) Physical Therapy Eval - Low Complexity 01/07/2020 12:0 0:00 AM EDT [facility] ([facility] RADEX ANKLE COMPLETE MINIMUM 3 VIEWS 12/30/2019 12:00: 00 AM EDT [facility] ([facility]) RADEX ANKLE COMPLETE MINIMUM 3 VIEWS 12/05/2019 12:00: 00 AM EDT [facility] ([facility]) FX Lateral Malleolus (Distal Fibula) W/O Manipulation 11/14/2019 12:00:00 AM EDT [facility] ([facility]) RADEX SHOULDER COMPLETE MINIMUM 2 VIEWS 11/14/2019 12: 00:00 AM EDT [facility] ([facility]) RADEX ANKLE COMPLETE MINIMUM 3 VIEWS 11/14/2019 12:00: 00 AM EDT [facility] ([facility]) RADEX SHOULDER COMPLETE MINIMUM 2 VIEWS 11/07/2019 12: 00:00 AM EDT [facility] ([facility]) RADEX ANKLE COMPLETE MINIMUM 3 VIEWS 11/07/2019 12:00: 00 AM EDT [facility] ([facility] MYOCARDIAL SPECT MULTIPLE STUDIES 09/29/2019 12:00:00 AM EDT [facility] ([facility]) CV STRS TST XERS&/OR RX CONT ECG PHYS SI&R 09/29/2019 12:00:00 AM EDT [facility] ([facility]) US RETROPERITONEAL REAL TIME W/IMAGE COMPLETE 09/22/19 12:00:00 AM EDT [facility] ([facility]) US RETROPERITONEAL REAL TIME W/IMAGE COMPLETE 09/22/19 12:00:00 AM EDT [facility] ([facility]) ECG ROUTINE ECG W/LEAST 12 LDS W/I&R 09/02/2019 12:00: 00 AM EDT [facility] ([facility]) Results ID Date Data Source [id number] 04/13/2020 12:00:00 AM EST [facility] Name Value Range Interpretation Code Description Data Daphney rce(s) Supporting Document(s) Carestart Rapid COVID Antigen Test Positive [facility] This lab was reported by Madeline altamirano. ID Date Data Source [id number] 04/13/2020 12:00:00 AM EST [facility] Name Value Range Interpretation Code Description Data Daphney rce(s) Supporting Document(s) SARS-CoV-2 (COVID-19) RNA [Presence] in Respiratory specimen by [facility] with probe detection Not Detected [facility] This lab was ordered by [facility] and reported by [employer] ID Date Data Source [id number] 03/30/2020 12:00:00 AM EST [facility] Name Value Range Interpretation Code Description Data Daphney rce(s) Supporting Document(s) SARS coronavirus 2 RNA Not Detected [facility] This lab was ordered by [facility] and rep orted by [facility]. ID Date Data Source [id number] 03/08/2020 12:43:00 PM EST [facility] ([facility] Name Value Range Interpretation Code Description Data Daphney rce(s) Supporting Document(s) Glucose [Presence] in Urine Laboratory test result [facility] ([facility]) Protein [Presence] in Urine by Test strip Laboratory test result [facility] ([facility]) Ua Nitrite Laboratory test result [facility] ([facility] Blood [Presence] in Urine by Visual Laboratory test result [facility] ([facility]) Ua Leuko Laboratory test result [facility] ([facility]) Color of Urine Laboratory test result [facility] ([facility]) Ketones [Presence] in Urine by Test strip Laboratory test result [facility] ([facility]) Clarity of Urine Laboratory test result [facility] ([facility]) Ua Specific [place] 1.015 1.003-1.030 MEDE NT ([facility]) Bilirubin.total [Presence] in Urine by Test strip Laboratory test res ult [facility] ([facility]) pH of Urine by Test strip 5.5 5.0-7.5 [facility] ([facility]) Urobilinogen [Mass/volume] in Urine by Test strip 0.2 E.U./dL 0.0-1.0 [facility] ([facility]) ID Date Data Source [id number] 03/08/2020 11:28:00 AM EST [facility] XRAY ABDOMEN KUBCLINICAL [...] rce(s) Supporting Document(s) ID Date Data Source [id number] 02/25/2020 07:26:00 PM EST [facility] ([facility] Name Value Range Interpretation Code Description Data Daphney rce(s) Supporting Document(s) Laboratory test finding (navigational concept) 140 mg/dL 70-99 [facility] ([facility] PERFORMED BY [facility] ID Date Data Source [id number] 02/25/2020 01:55:29 PM EST [address] [address]Cvpxvvt Name: JOSE BRUNOB: 1955Sex: MOrdering Provider: SARTHAK STRANGEuthtim Prov: SARTHAK PATRICIAefstorm Provider: Procedure Performed: FL RETROGRADE PYELOGRAM RIGHTExam Date: 02/25/2020 13:02MRN: [id number] Number: [id number] Class: InpatientAccount #: [id number] for Exam: Right ureteral stone [N20.1]Technique: Fluoroscopy with no digital spot images obtained.Fluoroscopy time: 11 SecondsNumber of Spot Images: 0Comparison: NoneFindings: C-arm was performed in OR. 7 spot radiographs are obtained. Fluoroscopic time: 11.2 seconds. There is placement of a ureteral stent.IMPRESSION: C-arm in OR as described.Report electronically signed by: JAMES CARBAJAL On 02/25/2020 1:55 PMWorkstation ID: [id number] Name Value Range Interpretation Code Description Data Daphney rce(s) Supporting Document(s) ID Date Data Source [id number] 02/25/2020 02:26:46 PM EST [facility] [facility] [place] Name Value Range Interpretation Code Description Data [facility] rce(s) Supporting Document(s) POC NOVA GLU 140 mg/dL (70-99) H [facility] [place] [facility] [place] PERFORMED BY [facility] ID Date Data Source [id number] 02/25/2020 11:56:00 AM EST [facility] ([facility]) Name Value Range Interpretation Code Description Data [facility] rce(s) Supporting Document(s) Composition in Stone Laboratory test result [facility] ([facility]) Calculi composed primarily of: 90% calcium [...] composition determined by FTIR analysis. Performed By: [place] [address] [employer] Wheel: Ny Mckeon MD Size [Entitic volume] of Stone Laboratory test result [facility] ([facility]) Unit: mm Number of Stones 1 [facility] ([facility]) Weight of Unspecified specimen 166 mg [facility] ([facility]) Appearance of Stone Laboratory test result [facility] ([facility]) Specimen consists of a single, large, brown, irregular calculus. ID Date Data Source [id number] 02/29/2020 07:49:20 AM EST [facility] [place] [facility] Name Value Range Interpretation Code Description Data [facility] rce(s) Supporting Document(s) COMPOSITION [facility] [place] [facility] See Note Calculi composed primarily of: 90% [...] by FTIR analysis. Performed By: [facility] [address] [place] [id number] [employer] Wheel: Ny Mckeon MD MASS 166 mg [facility] [place] [facility] CALCULI NUMBER 1 [facility] [place] [facility] CALCULI SIZE [facility] [place] [facility] [place] > 9Unit: mm CALCULI DESCRIPTION [facility] [place] See Note Specimen consists of a single, large, brown, irregular calculus. ID Date Data Source [id number] 02/25/2020 11:49:00 AM EST [facility] INFORMATIONPatient MRN Name Date of Age Gend*PT [id number] Alexei Villatoronis Marco Antonio 1955 64 years M SDCXPT Location Admission Date/Time Visit ID [facility]ending [facility] 02/25/20816 --- Sarthak Montana MD([id number]) EPI ID CSN Admitting Provider [id number] Sarthak Montana MD([id number])OPERATIVE NOTEPatient Name: Jose VillatoroMedical Record Number: [id number] of Procedure: 02/25/2020Surgeon: Sarthak Montana M.D.Pre-operative diagnosis: right ureteral calculiPost-operative diagnosis: SameProcedure: cystoscopy, right ureteroscopy, basket stone removal, right ureteralstent exchangeAnesthesia: GABlood/fluids administered: crystalloidEstimated blood loss: minimalComplications: NoneSpecimens: right ureteral calculiDrains: Right 6 Ecuadorean multi-length ureteral stentProcedure:Informed consent was obtained. Antibiotics [...] a w blanka in place.A right 6 Ecuadorean multi-length ureteral stent was placed using cystoscopic andfluoroscopic guidance without difficulty.The bladder was emptied and the scope was withdrawn.There were no surgical complications.Sarthak Montana M.D.Date: 02/25/2020Time: 11:46 AM Name Value Range Interpretation Code Description Data [facility] rce(s) Supporting Document(s) ID Date Data Source [id number] 02/25/2020 10:06:34 AM EST [facility] INFORMATIONPatient MRN Name Date of Age Gend*PT [id number] Jose Villatoro 1955 64 years M SDCXPT Location Admission Date/Time Visit ID Attending [facility] 02/25/20 0817 --- Sarthak Montana MD([id number]) EPI ID [facility] Admitting Provider [id number] Sarthak Montana MD([id number])Pre-Procedure History and Physical:The history and physical were reviewed and the patient was examined.Reviewed and updated. No changes.Sarthak Montana MD02/24/2010:06 AM Name Value Range Interpretation Code Description Data [facility] rce(s) Supporting Document(s) ID Date Data Source [id number] 02/25/2020 09:27:00 AM EST [facility] ([facility] [place]) Name Value Range Interpretation Code Description Data [facility] rce(s) Supporting Document(s) Glucose [Mass/volume] in Capillary blood by Glucometer 140 mg/dL 70- 99 [facility] ([facility] [place]) PERFORMED BY [facility] ID Date Data Source [id number] 02/25/2020 09:30:08 AM EST [facility] [place] [facility] Name Value Range Interpretation Code Description Data [facility] rce(s) Supporting Document(s) POC NOVA GLU 143 mg/dL (70-99) H [facility] [place] [facility] [place] PERFORMED BY [facility] ID Date Data Source [id number] 02/21/2020 09:40:00 AM EST [facility] Name Value Range Interpretation Code Description Data [facility] rce(s) Supporting Document(s) SARS coronavirus 2 RNA [facility] This lab was ordered by [facility] [place] [facility] and reported by [employer]. ID Date Data Source [id number] 02/22/2020 05:08:25 PM EST Lab [facility] Name Value Range Interpretation Code Description Data [facility] rce(s) Supporting Document(s) SARS-COV-2 [facility] Not DetectedReference range: Not Detecte d This nucleic acid amplification test was developed and its performance characteristics determined by [employer]. Nucleic acid amplification tests include PCR and [...] detected) result in this assay. Performed At: [employer] [place], [place] [id number] Johnny Church PhD Ph:[phone] ID Date Data Source [id number] 02/02/2020 12:54:00 PM EST [facility] ([facility] [place]) Name Value Range Interpretation Code Description Data [facility] rce(s) Supporting Document(s) Protein [Presence] in Urine by Test strip Laboratory test result [facility] ([facility]) Glucose [Presence] in Urine Laboratory test result [facility] ([facility]) Ua Nitrite Laboratory test result [facility] ([facility]) Blood [Presence] in Urine by Visual Laboratory test result [facility] ([facility] [place]) Ua Leuko Laboratory test result [facility] ([facility]) Color of Urine Laboratory test result [facility] ([facility]) Clarity of Urine Laboratory test result [facility] ([facility] [place]) Ketones [Presence] in Urine by Test strip Laboratory test result [facility] ([facility]) Bilirubin.total [Presence] in Urine by Test strip Laboratory test res ult [facility] ([facility]) Ua Specific [place] 1.015 1.003-1.030 [facility] NT ([facility]) pH of Urine by Test strip 5.5 5.0-7.5 [facility] ([facility]) Urobilinogen [Mass/volume] in Urine by Test strip 0.2 E.U./dL 0.0-1.0 [facility] ([facility]) ID Date Data Source [id number] 02/02/2020 11:47:00 AM EST [facility] AssociatesEXAM: XRAY ABDOMEN KUBCLINICAL HISTORY: Calculus of [...] rce(s) Supporting Document(s) ID Date Data Source [id number] 01/25/2020 02:17:00 PM EST [facility] ([facility]) Name Value Range Interpretation Code Description Data [facility] rce(s) Supporting Document(s) Sodium 145 [facility] ([facility] [place]) Calcium [Mass/volume] in Serum or Plasma 8.0 [facility] ([facility]) Chloride [Moles/volume] in Serum or Plasma 115 [facility] ([facility]) Carbon dioxide, total [Moles/volume] in Serum or Plasma 23 [facility] ([facility]) Potassium [Moles/volume] in Serum or Plasma 3.8 [facility] ([facility]) Creatinine 1.29 0.80-1.30 [facility] ([facility]) Blood Urea Nitrogen 17 7-24 [facility] (Ca rdiology [facility]) Glucose 192 70-99 [facility] (Cardiology [facility]) Glomerular filtration rate/1.73 sq M.pre dicted [Volume Rate/Area] in Serum or Plasma by Creatinine-based formula (MDRD) 56 [facility] ([facility]) ID Date Data Source [id number] 01/25/2020 02:17:00 PM EST [facility] ([facility]) Name Value Range Interpretation Code Description Data [facility] rce(s) Supporting Document(s) Red Blood Count 3.88 4.60-6.10 [facility] ([facility]io [facility]y [facility]) White Blood Count 10.1 4.1-11.0 [facility] ([facility]) Hemoglobin 12.6 13.5-18.0 [facility] ([facility]) Hematocrit 37.6 41.0-53.0 [facility] ([facility]) Platelets 192 150-450 [facility] ([facility]iology [facility]) ID Date Data Source [id number] 01/25/2020 06:18:00 AM EST [facility] ([facility] [place]) Name Value Range Interpretation Code Description Data [facility] rce(s) Supporting Document(s) Sodium [Moles/volume] in Serum or Plasma 145 mmol/L 136-145 [facility] ([facility]) Carbon dioxide, total [Moles/volume] in Serum or Plasma 23 mmol/L 22 -31 [facility] ([facility] [place]) Potassium 3.8 mmol/L 3.6-5.2 [facility] ([facility]) Chloride [Moles/volume] in Serum or Plasma 115 mmol/L 100-108 [facility] ([facility]) Creatinine [Mass/volume] in Serum or Plasma 1.29 mg/dL 0.80-1.30 [facility] ([facility]) Urea nitrogen [Mass/volume] in Serum or Plasma 17 mg/dL 7-24 [facility] ([facility]) Anion gap 3 in Serum or Plasma 7 mmol/L 7-16 [facility] ([facility]) Urea nitrogen/Creatinine [Mass Ratio] in Serum or Plasma 13.2 RATIO 10.0-20.0 [facility] ([facility]) Calcium [Mass/volume] in Serum or Plasma 8.0 mg/dL 8.4-10.2 [facility] ([facility]) Glucose [Mass/volume] in Serum or Plasma 192 mg/dL 70-99 [facility] ([facility]) Glomerular filtration rate/1.73 sq M.pre dicted [Volume Rate/Area] in Serum or Plasma by Creatinine-based formula (MDRD) 56 ml/min/1.73m2 [facility] ([facility]) GFR Interpretation Laboratory test result [facility] ([facility]) <content></content>
<content> </con tent>
<content>NORMAL KIDNEY [...] formula (MDRD) Laboratory test result [facility] ([facility]) ID Date Data Source [id number] 01/25/2020 06:18:00 AM EST [facility] ([facility]) Name Value Range Interpretation Code Description Data [facility] rce(s) Supporting Document(s) Erythrocytes [#/volume] in Blood by Automated count 3.88 10*6/uL 4.60 -6.10 [facility] ([facility]) Leukocytes [#/volume] in Blood by Automated count 10.1 10*3/uL 4.1-11 .0 [facility] ([facility]) Hematocrit [Volume Fraction] of Blood by Automated count 37.6 % 4 1.0-53.0 [facility] ([facility]) Hemoglobin [Mass/volume] in Blood 12.6 g/dL 13.5-18.0 [facility] ([facility]) Erythrocyte mean corpuscular hemoglobin [Entitic mass] by Automated count 32.3 pg 27.0-32.0 [facility] ([facility]) Erythrocyte mean corpuscular hemoglobin concentration [Mass/volume] by Automated count 33.4 g/dL 32.0-36.0 [facility] ([facility]) Erythrocyte mean corpuscular volume [Entitic volume] by Auto mated count 96.8 fL 80.0-95.0 [facility] ([facility]) Platelets [#/volume] in Blood by Automated count 192 10*3/uL 150-450 [facility] ([facility]) Platelet mean volume [Entitic volume] in Blood by Automated count 8.8 fL 7.1-10.7 [facility] ([facility] [place] Erythrocyte distribution width [Ratio] by Automated count 14.2 % 10.5-14.5 [facility] ([facility] [place]) ID Date Data Source [id number] 01/25/2020 07:12:35 AM EST [facility] [place] [facility] Name Value Range Interpretation Code Description Data [facility] rce(s) Supporting Document(s) SODIUM 145 mmol/L (136-145) [facility] [place] [facility] POTASSIUM 3.8 mmol/L (3.6-5.2) [facility] [place] [facility] CHLORIDE 115 mmol/L (100-108) H [facility] [place] [facility] CO2 23 mmol/L (22-31) [facility] [place] [facility] ANION GAP 7 mmol/L (7-16) [facility] [place] [facility] UREA NITROGEN 17 mg/dL (7-24) [facility] [place] [facility] CREATININE 1.29 mg/dL (0.80-1.30) [facility] [place] [facility] BUN/CREAT RATIO 13.2 RATIO (10.0-20.0) [facility] GLUCOSE 192 mg/dL (70-99) H [facility] [place] [facility] CALCIUM 8.0 mg/dL (8.4-10.2) L [facility] [place] [facility] GFR 56 ml/min/1.73m2 (>59) L [facility] [place] [facility] [place] GFR ( AMER) >60 ml/min/1.73m2 (>59) [facility] [place] [facility] GFR INTERPRETATION [facility] --NORMAL KIDNEY FUNCTION OR MILD DISEASE - GFR >OR= 60CHRONIC KIDNEY DISEASE - GFR 15 - 59RENAL FAILURE - GFR <15 Est. GFR calculation based on the MDRDstudy equation, which assumes a steadystate for creatinine. Est. GFR should notbe used for medication dosing. ID Date Data Source [id number] 01/25/2020 06:57:56 AM EST [facility] [place] [facility] [place] Name Value Range Interpretation Code Description Data [facility] rce(s) Supporting Document(s) WBC 10.1 10*3/uL (4.1-11.0) [facility] [place] [facility] [place] RBC 3.88 10*6/uL (4.60-6.10) L [facility] [place] [facility] [place] HGB 12.6 g/dL (13.5-18.0) L [facility] [place] [facility] [place] HCT 37.6 % (41.0-53.0) L [facility] [place] [facility] [place] MCV 96.8 fL (80.0-95.0) H [facility] [place] [facility] [place] MCH 32.3 pg (27.0-32.0) H [facility] [place] [facility] [place] MCHC 33.4 g/dL (32.0-36.0) [facility] [place] [facility] [place] RDW 14.2 % (10.5-14.5) [facility] [place] [facility] [place] PLT 192 10*3/uL (150-450) [facility] [place] [facility] [place] MPV 8.8 fL (7.1-10.7) [facility] [place] [facility] [place] ID Date Data Source [id number] 01/24/2020 09:50:00 AM EDT [facility] [...] hydronephrosis. D7End of diagnostic report for accession: [id number] Interpreted: Juvenal Elmore MDTranscribed: 01/24/2020 09:38 AMSigned: 01/24/2020 09:50 AM Juvenal Elmore MD [facility] # [id number] BILL # [id number] Name Value Range Interpretation Code Description Data [facility] rce(s) Supporting Document(s) ID Date Data Source [id number] 01/24/2020 06:57:00 AM EDT [facility] ([facility]) Name Value Range Interpretation Code Description Data [facility] rce(s) Supporting Document(s) Sodium [Moles/volume] in Serum or Plasma 141 mmol/L 136-145 [facility] ([facility]) Potassium 3.7 mmol/L 3.6-5.2 [facility] ([facility]) Chloride [Moles/volume] in Serum or Plasma 112 mmol/L 100-108 [facility] ([facility]) Carbon dioxide, total [Moles/volume] in Serum or Plasma 21 mmol/L 22 -31 [facility] ([facility]) Anion gap 3 in Serum or Plasma 8 mmol/L 7-16 [facility] ([facility]) Urea nitrogen [Mass/volume] in Serum or Plasma 19 mg/dL 7-24 [facility] ([facility]) Urea nitrogen/Creatinine [Mass Ratio] in Serum or Plasma 13.2 RATIO 10.0-20.0 [facility] ([facility]) Creatinine [Mass/volume] in Serum or Plasma 1.44 mg/dL 0.80-1.30 [facility] ([facility]) Glucose [Mass/volume] in Serum or Plasma 197 mg/dL 70-99 [facility] ([facility]) Glomerular filtration rate/1.73 sq M pre dicted among blacks [Volume Rate/Area] in Serum or Plasma by Creatinine-based formula (MDRD) Laboratory test result [facility] ([facility]) Calcium [Mass/volume] in Serum or Plasma 7.7 mg/dL 8.4-10.2 [facility] ([facility]) Glomerular filtration rate/1.73 sq M.pre dicted [Volume Rate/Area] in Serum or Plasma by Creatinine-based formula (MDRD) 50 ml/min/1.73m2 [facility] ([facility] [place]) GFR Interpretation Laboratory test result [facility] ([facility] [place]) <content></content>
<content> </con tent>
<content>NORMAL KIDNEY FUNCTION</content>
<content> OR MILD DISEASE - GFR >OR= 60</content>
<content>CHRONIC KIDNEY DISEASE - GFR 15 - 59</content>
<content>RENAL FAILURE - GFR <15</content>
<content> </content>< br/><content>Est. GFR calculation based on the MDRD</content>
<content>study equation, which assumes a steady</content>
<content>state for creatinine. Est. GFR should not</content>
<content>be used for medication dosing.</content>
<content></content> ID Date Data Source [id number] 01/24/2020 06:57:00 AM EDT [facility] ([facility]) Name Value Range Interpretation Code Description Data [facility] rce(s) Supporting Document(s) Erythrocytes [#/volume] in Blood by Automated count 4.04 10*6/uL 4.60 -6.10 [facility] ([facility]) Leukocytes [#/volume] in Blood by Automated count 11.8 10*3/uL 4.1-11 .0 [facility] ([facility]) Erythrocyte mean corpuscular volume [Entitic volume] by Auto mated count 97.1 fL 80.0-95.0 [facility] ([facility]) Hematocrit [Volume Fraction] of Blood by Automated count 39.2 % 4 1.0-53.0 [facility] ([facility]) Hemoglobin [Mass/volume] in Blood 12.9 g/dL 13.5-18.0 [facility] ([facility]) Erythrocyte distribution width [Ratio] by Automated count 14.1 % 10.5-14.5 [facility] ([facility]) Erythrocyte mean corpuscular hemoglobin concentration [Mass/volume] by Automated count 32.8 g/dL 32.0-36.0 [facility] ([facility]) Erythrocyte mean corpuscular hemoglobin [Entitic mass] by Automated count 31.8 pg 27.0-32.0 [facility] ([facility]) Platelet mean volume [Entitic volume] in Blood by Automated count 9.0 fL 7.1-10.7 [facility] ([facility]) Platelets [#/volume] in Blood by Automated count 152 10*3/uL 150-450 [facility] ([facility]) ID Date Data Source [id number] 01/24/2020 07:48:27 AM EDT [facility] [place] [facility] Name Value Range Interpretation Code Description Data [facility] rce(s) Supporting Document(s) SODIUM 141 mmol/L (136-145) [facility] [place] [facility] POTASSIUM 3.7 mmol/L (3.6-5.2) [facility] [place] [facility] CHLORIDE 112 mmol/L (100-108) H [facility] [place] [facility] CO2 21 mmol/L (22-31) L [facility] [place] [facility] ANION GAP 8 mmol/L (7-16) [facility] [place] [facility] UREA NITROGEN 19 mg/dL (7-24) [facility] [place] [facility] CREATININE 1.44 mg/dL (0.80-1.30) H [facility] [place] [facility] BUN/CREAT RATIO 13.2 RATIO (10.0-20.0) [facility] GLUCOSE 197 mg/dL (70-99) H [facility] [place] [facility] [place] CALCIUM 7.7 mg/dL (8.4-10.2) L [facility] [place] [facility] GFR 50 ml/min/1.73m2 (>59) L [facility] [place] [facility] [place] GFR ( AMER) >60 ml/min/1.73m2 (>59) [facility] [place] [facility] GFR INTERPRETATION [facility] --NORMAL KIDNEY FUNCTION OR MILD DISEASE - GFR >OR= 60CHRONIC KIDNEY DISEASE - GFR 15 - 59RENAL FAILURE - GFR <15 Est. GFR calculation based on the MDRDstudy equation, which assumes a steadystate for creatinine. Est. GFR should notbe used for medication dosing. ID Date Data Source [id number] 01/24/2020 07:37:38 AM EDT [facility] [place] [facility] [place] Name Value Range Interpretation Code Description Data [facility] rce(s) Supporting Document(s) WBC 11.8 10*3/uL (4.1-11.0) H [facility] [place] [facility] [place] RBC 4.04 10*6/uL (4.60-6.10) L [facility] [place] [facility] HGB 12.9 g/dL (13.5-18.0) L [facility] [place] [facility] HCT 39.2 % (41.0-53.0) L [facility] [place] [facility] MCV 97.1 fL (80.0-95.0) H [facility] [place] [facility] MCH 31.8 pg (27.0-32.0) [facility] [place] [facility] MCHC 32.8 g/dL (32.0-36.0) [facility] [place] [facility] RDW 14.1 % (10.5-14.5) [facility] [place] [facility] PLT 152 10*3/uL (150-450) [facility] [place] [facility] MPV 9.0 fL (7.1-10.7) [facility] [place] [facility] ID Date Data Source [id number] 01/23/2020 11:00:00 AM EDT [facility] ([facility] [place]) Name Value Range Interpretation Code Description Data [facility] rce(s) Supporting Document(s) Leukocytes [#/volume] in Blood by Automated count 14.4 10*3/uL 4.1-11 .0 [facility] ([facility] [place]) Erythrocytes [#/volume] in Blood by Automated count 3.93 10*6/uL 4.60 -6.10 [facility] ([facility] [place]) Erythrocyte mean corpuscular volume [Entitic volume] by Auto mated count 96.3 fL 80.0-95.0 [facility] ([facility]) Hemoglobin [Mass/volume] in Blood 12.4 g/dL 13.5-18.0 [facility] ([facility]) Hematocrit [Volume Fraction] of Blood by Automated count 37.8 % 4 1.0-53.0 [facility] ([facility]) Erythrocyte mean corpuscular hemoglobin concentration [Mass/volume] by Automated count 32.8 g/dL 32.0-36.0 [facility] ([facility]) Erythrocyte mean corpuscular hemoglobin [Entitic mass] by Automated count 31.6 pg 27.0-32.0 [facility] ([facility]) Erythrocyte distribution width [Ratio] by Automated count 14.4 % 10.5-14.5 [facility] ([facility]) Platelets [#/volume] in Blood by Automated count 161 10*3/uL 150-450 [facility] ([facility]) Platelet mean volume [Entitic volume] in Blood by Automated count 9.1 fL 7.1-10.7 [facility] ([facility]) ID Date Data Source [id number] 01/23/2020 11:00:00 AM EDT [facility] ([facility]) Name Value Range Interpretation Code Description Data [facility]ney rce(s) Supporting Document(s) Sodium [Moles/volume] in Serum or Plasma 138 mmol/L 136-145 [facility] ([facility]) Potassium 3.6 mmol/L 3.6-5.2 [facility] ([facility]) Chloride [Moles/volume] in Serum or Plasma 106 mmol/L 100-108 [facility] ([facility]) Carbon dioxide, total [Moles/volume] in Serum or Plasma 25 mmol/L 22 -31 [facility] ([facility]) Anion gap 3 in Serum or Plasma 7 mmol/L 7-16 [facility] ([facility]) Creatinine [Mass/volume] in Serum or Plasma 1.56 mg/dL 0.80-1.30 [facility] ([facility]) Urea nitrogen [Mass/volume] in Serum or Plasma 20 mg/dL 7-24 [facility] ([facility]) Calcium [Mass/volume] in Serum or Plasma 7.7 mg/dL 8.4-10.2 [facility] ([facility]) Glucose [Mass/volume] in Serum or Plasma 142 mg/dL 70-99 [facility] ([facility]) Urea nitrogen/Creatinine [Mass Ratio] in Serum or Plasma 12.8 RATIO 10.0-20.0 [facility] ([facility]ated [facility]) GFR Interpretation Laboratory test result [facility] ([facility]) <content></content>
<content> </con tent>
<content>NORMAL KIDNEY [...] Plasma by Creatinine-based formula (MDRD) 55 ml/min/1.73m2 [facility] ([facility]) Glomerular filtration rate/1.73 sq M.pre dicted [Volume Rate/Area] in Serum or Plasma by Creatinine-based formula (MDRD) 45 ml/min/1.73m2 [facility] ([facility]) ID Date Data Source [id number] 01/23/2020 11:00:00 AM EDT [facility] ([facility] [place] Name Value Range Interpretation Code Description Data Daphney rce(s) Supporting Document(s) Troponin I.cardiac [Mass/volume] in Serum or Plasma Laboratory test result [facility] ([facility] [place]) Less than 0.05: Myocardial injury unlike ly Greater than or equal to 0.05: Highly suggestive of myocardial injury Correlation with rise and/or fall of serial troponins, clinical symptoms and ECG changes is necessary. ID Date Data Source [id number] 01/23/2020 12:02:00 PM EDT [facility] [place] Name Value Range Interpretation Code Description Data Daphney rce(s) Supporting Document(s) TROPONIN I <0.05 ng/mL (<0.05) [facility] [place] Less than 0.05: Myocardial injury unlike lyGreater than or equal to 0.05: Highly suggestive of myocardial injuryCorrelation with rise and/or fall ofserial troponins, clinical symptomsand ECG changes is necessary. ID Date Data Source [id number] 01/23/2020 12:02:00 PM EDT [facility] Name Value Range Interpretation Code Description Data Daphney rce(s) Supporting Document(s) SODIUM 138 mmol/L (136-145) [facility] POTASSIUM 3.6 mmol/L (3.6-5.2) [facility] CHLORIDE 106 mmol/L (100-108) [facility] CO2 25 mmol/L (22-31) [facility] ANION GAP 7 mmol/L (7-16) [facility] UREA NITROGEN 20 mg/dL (7-24) [facility] CREATININE 1.56 mg/dL (0.80-1.30) H [facility] BUN/CREAT RATIO 12.8 RATIO (10.0-20.0) [facility] GLUCOSE 142 mg/dL (70-99) H [facility] CALCIUM 7.7 mg/dL (8.4-10.2) L [facility] GFR 45 ml/min/1.73m2 (>59) L [facility] GFR ( AMER) 55 ml/min/1.73m2 (>59) L [facility] GFR INTERPRETATION [facility] --NORMAL KIDNEY FUNCTION OR MILD DISEASE - GFR >OR= 60CHRONIC KIDNEY DISEASE - GFR 15 - 59RENAL FAILURE - GFR <15 Est. GFR calculation based on the MDRDstudy equation, which assumes a steadystate for creatinine. Est. GFR should notbe used for medication dosing. ID Date Data Source [id number] 01/23/2020 11:38:24 AM EDT [facility] [place] Name Value Range Interpretation Code Description Data Daphney rce(s) Supporting Document(s) WBC 14.4 10*3/uL (4.1-11.0) H [facility] RBC 3.93 10*6/uL (4.60-6.10) L [facility] HGB 12.4 g/dL (13.5-18.0) L [facility] HCT 37.8 % (41.0-53.0) L [facility] MCV 96.3 fL (80.0-95.0) H [facility] MCH 31.6 pg (27.0-32.0) [facility] MCHC 32.8 g/dL (32.0-36.0) [facility] RDW 14.4 % (10.5-14.5) [facility] PLT 161 10*3/uL (150-450) [facility] MPV 9.1 fL (7.1-10.7) [facility] ID Date Data Source [id number] 01/23/2020 02:30:56 AM EDT [facility] [place] Name Value Range Interpretation Code Description Data Daphney rce(s) Supporting Document(s) TROPONIN I <0.05 ng/mL (<0.05) [facility] [place] [facility] [place] Less than 0.05: Myocardial injury unlike lyGreater than or equal to 0.05: Highly suggestive of myocardial injuryCorrelation with rise and/or fall ofserial troponins, clinical symptomsand ECG changes is necessary. ID Date Data Source [id number] 01/22/2020 07:55:00 PM EDT [facility] DATE OF EXAM: 01/22/2020EXAM: Chest 2V I [...] elevation. X5End of diagnostic report for accession: [id number] Interpreted: Marisel Davila MDTranscribed: 01/22/2020 07:52 PMSigned: 01/22/2020 07:55 PM Marisel Davila MD [facility] # [id number] [facility] # [id number] Name Value Range Interpretation Code Description Data Daphney rce(s) Supporting Document(s) ID Date Data Source [id number] 01/22/2020 06:58:33 PM EDT [facility] [place] Name Value Range Interpretation Code Description Data Daphney rce(s) Supporting Document(s) TROPONIN I <0.05 ng/mL (<0.05) [facility] [place] [facility] [place] Less than 0.05: Myocardial injury unlike lyGreater than or equal to 0.05: Highly suggestive of myocardial injuryCorrelation with rise and/or fall ofserial troponins, clinical symptomsand ECG changes is necessary. ID Date Data Source [id number] 01/22/2020 06:58:33 PM EDT [facility] [place] Name Value Range Interpretation Code Description Data Daphney rce(s) Supporting Document(s) SODIUM 138 mmol/L (136-145) [facility] POTASSIUM 3.9 mmol/L (3.6-5.2) [facility] CHLORIDE 106 mmol/L (100-108) [facility] CO2 24 mmol/L (22-31) [facility] ANION GAP 8 mmol/L (7-16) [facility] UREA NITROGEN 16 mg/dL (7-24) [facility] CREATININE 1.60 mg/dL (0.80-1.30) H [facility] BUN/CREAT RATIO 10.0 RATIO (10.0-20.0) [facility] GLUCOSE 156 mg/dL (70-99) H [facility] CALCIUM 8.6 mg/dL (8.4-10.2) [facility] GFR 44 ml/min/1.73m2 (>59) L [facility] GFR ( AMER) 53 ml/min/1.73m2 (>59) L [facility] GFR INTERPRETATION [facility] [place] --NORMAL KIDNEY FUNCTION OR MILD DISEASE - GFR >OR= 60CHRONIC KIDNEY DISEASE - GFR 15 - 59RENAL FAILURE - GFR <15 Est. GFR calculation based on the MDRDstudy equation, which assumes a steadystate for creatinine. Est. GFR should notbe used for medication dosing. ID Date Data Source [id number] 01/22/2020 06:37:48 PM EDT [facility] Name Value Range Interpretation Code Description Data Daphney rce(s) Supporting Document(s) WBC 16.0 10*3/uL (4.1-11.0) H [facility] RBC 4.67 10*6/uL (4.60-6.10) [facility] HGB 14.7 g/dL (13.5-18.0) [facility] HCT 45.2 % (41.0-53.0) [facility] MCV 96.7 fL (80.0-95.0) H [facility] [place] MCH 31.4 pg (27.0-32.0) [facility] MCHC 32.5 g/dL (32.0-36.0) [facility] RDW 14.5 % (10.5-14.5) [facility] PLT 163 10*3/uL (150-450) [facility] MPV 8.2 fL (7.1-10.7) [facility] ID Date Data Source [id number] 01/23/2020 07:46:00 PM EDT [facility] [place], [address] [id number] NAME: JSOE VILLATORODATE OF : 1955REPORT: CONSULTATIONPATIENT NUMBER: [id number] STATUS: IPMEDICAL RECORD NUMBER: [id number]: [facility] CONSULTATIONDATE OF CONSULTATION: 01/22/2020CONSULT REQUESTED BY: [...] four hours PRNPRN Reason: painExtended Instructions: istop [id number] MaxDailyDose- 6Medication Status: activeomeprazole 40 mg capsule,delayed [...] also request a chest x-ray. Will request second miller covering hospitalist to follow overnight work up.Thank you for this consult. Hospitalist team will follow with you.DICTATED BY: JOSSELIN Hayictated: 01/22/2020 18:00DT: 01/22/2020 18:09Job #: [id number]: Quinton Pride MDNOTE: [facility] computer generated reports are notconfirmed or authenticated unless they are signed by the providerElectronically Authenticated and Edited by:ADELINA ALCARAZ MD On 01/23/2020 07:46 PM EDT Name Value Range Interpretation Code Description Data Daphney rce(s) Supporting Document(s) ID Date Data Source [id number] 01/22/2020 05:32:39 PM EDT [facility] Name Value Range Interpretation Code Description Data Daphney rce(s) Supporting Document(s) MUSE EKG PDF encoded [facility] HAGXQt9jGpROQsQtg4KmQiRfRRQnZB4lfyl0E2Q6aCUbX2SsqVCbv7ucC3YcC8KgDRSuXNAJUF1VpVRp jb2 [file] h5ZV1GV2+g2K2XdDEi0zi3B/T/0td+NaXSP/4d5++Nguyễn+WsT1rxv8y8p6Av6/okySxQ7cyTW+t3zXkY+ A7+V4c95Mc/GXe7Q58LXM5c+estF/c49E5n9uHup+688tK+8I7t5BfgFO8X/su34ttfu+SSn/6h6Q3k8 Xdlsexv0gk2Kp4G/vulzW5z9b/DKSbn/iiQfkof263 zPKpk99k6+WtPy9v+/OnnGxA5czXhEfC9hfv7Q8+4/m2byzH+KoQay1wi4t3A5ffX2xkrV5jc2kTm/Ld sl/dPGG/MwIwAclkVmrQd6H+G/VN/eqlwXfwUV/NooecQ0ywxcx42GwYBM5lfC7r6F9FhQ9N+bcuG0H7 Nyxy7SkW3g4TTu8+XWm/gwg6Qg6d3spkPnqDuoqA+b ehJ9jb3jBY+1V9G+yrrm1Ng7c903C+PZh/zwRfwO/81ze9a8RLaxAtPY+RD/HV9HfsBUufs+pXLw1+IP 3nmVn7s7y++Su54RjJJ598oHT9cZF8MmYcvi22a1kNOk/lJUPinDuAi0Vw+9I5aj2GK+xYIzm4DQ7t2k T3Rd7fk5E572osHhU/tuvDq1fcI/2kneLnmX33AIK/ qzi8j2nTnDw751ig4UnK+5MS4u73ouwUoqFKejLBL200bRfP5Eipj0L7N7Uqbqe4DjCyQdVvBXSamYzt NmswxoM7c7Z1oD1NGQ/D32xywSu2HaDi7dy36p5wv+2xutr+lRqiu1g3iZkaJ+bq8Ob6CGxft6dAlERl va1xrElJx+M7A+IDnpRiL562Del0+ld1gI/fV3s/VF XAF/BrStgx72Ex1lT8+jnZ9AnuKzrmu6lkJeY067qyf32kk1r4GcH0Z3E0iR+1bbcUs0UmVP9RsRFa8Q Aa54HXvk0B8/gO51825k1jw8yD4vn8Ovv7lhI2+Bv8AD/AP+Xpel07XNPrl6Q4VbZO1+o1zT49kez+jv o6+m/uH929G921DxL3Fse60ryO0X76fXi/XBSrGI8p N083Duvi3n441hb9a+OrQ1dSwk+SOGByx8f8PmvSit8YtS6x7mm4ny/rhew7P/1s6yq2EvZp2gbziCld xuzv1l9U3Ue41u9nj+0Urdgkr3jxg5kyMg+xkgO4H518fAQ/8inkRSp8vYq8d+W5tp3DVwrLKhp2uT8G A/UNjM+kZ0ZqyB+q3ipl3Soh/wJNA37tK4gpmnz8ow WBRq/14dY0B9+v9/E1hK0C60SC/YY2xG6XA+p0SirJwwUK2/cY+Bxx9lu2HEg+qO+OuazEwy7C4xa7/M Y91F/94p7p/0C9uzWc0N/SAr7g+QS3bb1ud/xli7hn+av/4sR1tq5lb/kcf96f2ve+L73B3+AH+IF8Ds h8so4wZd598e0yF+jw20lT6RnWMl/baQE9Aj+9J/fL PgbS1so0+57b/7ANuhSs2p58Ik/W7/xFun4u51x8Ix6nN/gH/BW3YHOd5QC+EDN56HQxXf2mi+45/bKN 2BS1acViq72S5S+lb/eSl8YDMuNlsbHt/GvfqHdvfVfmf+tb6QA/wD+jv+E163c55ZoIk9B/a90X4d98 q5LDtV+GrFtvu9r6iSON+8Ciif4KjmowZau19p9p2E cv/xwZTP5RAwwGNpEY2o/5yaucof1w+alK6nZv662q756/ao0S2j2F3jV7Tg6GhGlsOBbI17Q80F53qX L6uy00Q0n+gI/xynp/wdJ+KYbTW3w/yrqn/lotgZw80217Gp3wnVlEQ6MZriBm3Ek5A/nUnqLr2M/wez 4y7/eUZF3k3M8M9xngJH/AX+Yf2AXpJ68s1KIR44Eg Y4018fMwFy+Wh58WAUS/4Pd+t+9b91A4bD/o01mS8hJ+4PkF/gK/253G7eaJaeHcLmwkC3X2B5DZm/JK W6cD/V2fn4Xe0w4anze4xsG/RvmkSWq5Xg3Ti4Ig0Io77a8Emv6m1pdCQq3/FPB2vj58Sb8+f1I0QHt+ e8Xl2NcpVsDAnba1X2N1msA/Cvkc8PD53U1ep+z0es JDrv97if+u4Wk9aW8uL6yt5aa5Xukiwhy+B/U9qO/p+vro9a+n/eq2PR/aoo9G0Ku62rC7x7/eL/Ox8L win+6/Prr/+eBwMCpBs9H/wQ/wA/zzjcM+2t7us/VJT/3q6oGe+tVLWz/T+eBHfo695pljd/uvY3/QsT /os8+hDk67L001j84rx/ZM0yc0yH6NJ3W/wG/7s+N8 u+D7yEwxPh0aV8m8QQt/6y+Xtk+90Q3aF5/f8P+XvyEK0gsWgWW/BuAc5cHLiSswOut/zlxCqqzk/tuc Fwnr+YlVsiKWTFkS1IWg5/qSv68x8S59koUjpH4M4Hy/VfrA+KE1QvyK97Y+G9/yClDK0Lhm4XCm0llO v8v4Ly8Z9868cs7q+CufHa/uWB8LljktJs5Go7X+6j x0VkWbXY+jF80gjD4cuUdf2SZmusfzkG/fAAL9FnI4u4osNO0CnuQK+OClnx428vubp/1Ctoz6cLI/5Q vfb/lXeXy+oT2xk2L5L0/+klM9zm5ijl2gD/8qsQ6//tU7/n2/1efW3gTpquf/knwG6/mCW8+PvOLb83 z75mVe/lVe2/3sn45pq/X/163jkbzir+rYXmyJX//q O7YXT+KIv3LH+3X0Z+94Bvf+H3n6V/gjwJ3COplPupX3tLMEgsdat+gm7144U+C71d6FqSvYMdpM/yOs CrgBS987/QDej5TMEu4qm5VtdhscDU9KN/hXDv/Q4I495rs3C73eL/+zhw21k0+R23Uj58/iYJ5f63F1 AS2Mf7GxAu9/ynQi1sS+swO/7tw0pbEcuT39/dej13 8d+OLqpa8E7298obZX2aPFtq250L42is+On54f+ZGBY+jx/z0db+ZnfvNKP/PDVfz0/hQ/vT/FT+Oxfn p/ymVm//Eywc7MOIe7deW56kis66mzTy682B1904Jx1oH0573GA976wl9S0TO1Bt7AnkM6zzKJofkyT/ vyV3mc3SjwFQxkS9188I6u8GAdbfrL+VE8ek8S499+ EZ9xgV5rS75r6HF63YYR/OodQ7+g7/jlrhjAP2iExq4Txtq5/iWJc5lu1zujTbmuDss9+JjVrac6fe+y o22YYlIGg7P/lfJ142dU21hDLiaAQb9AI0Xo1P/o23/eWB/cWB/cWB/q3jKb3Zr46m3Sk/Z66E7/6h1/ /u1O/yr12D+4Ed++Z/+M7dj1us52KSVre1Bu3/7QPX d59cDfobgyk4k0+Bijc323QiHp98+UEyg/gD48h3detIBl1Uj4Qn9i4BV6qy7Qlv/39+c58048Z2xw3P ehvsugN+f5tM9K5H2l2Y/oA+ejvqv/v3u1/7ap43e24WszW11/skm6zT03ah1B75z4k2yOYfni55ms2Y v/u63/E4owt3bL0/1rU2s3Jit4P/ey7u6j0dg2FiTI tw/oBXr0Z/hXG/7Vhn+1He/Eg551B65m4/063i/8qw3/avvG8/T34QsL0dK16HhG2813lcP0c52z9a13 fje+343vF/7Vhn+1N+q7Ud+N+n916519z/F+L07atufu618W3zkun/bu9d+d/lP12pObJ765NhzCq2Vd tUEEzNMCdtI6X+dd1Ne9n7i8w4T58Zs46T57H4d3B9 uT81BceYzO3+3TeM7G+uA+GK8O/kmBvG71K5/pg3PX87cKS/+jg//RMZzvuK/2zNl80Ij0bv/YiG/fp+ R94ij2nJA+Fdg/ISSyUpUScdOfnL6ny/fKuxl5LAO+KhB/ChKth9fJC0qGaW5Yec/H6Pl+jJ7vR+JXM4 87fiMy/ecVrao4dgSWHVyvO9j1kTbBbhDT6/2Q7s+B +MpEFm2K+Qcfh71sl54nHSzTo8L6c5gE5cykb+WJ07b1kS0r9bUab5DPeUYq3Bo8G/oJ/YK+481CG9+I wq/aqYEbHe7LmESZ01AjPI9MAb4T2R3Mus2xJr3xvLv/Zowze0BAh6+/NDK+/eIGkeuDea+9QvfSPMl0 siTC6f7VSwxQ8ZKFfIpovg2+xz+45xHla4TW9qg/zh eyjnN/+EnM+WUafcdZnxh2h8+431peKp6r1C/d+Uhc/nr74wT9odUlx/V+nEj/UngkqdzncB0Q/KtY7W /A9mbBIOo55/jIE7Q9exXc0sjAej26dC3nuL8zHj/PYT0+t8L4jb6KR8qexXAAuo2mmWE/E6eMx1Ap5W vKMdy3/urkf41fINo+UfjLr9C0mAnS/eaVR4m7TjO2 jM/e6wuB+PbA+mBgfTC8/0fhC+kkvP7246S97Hq+Mrzj+cM3zg+bU0Hs9Mr+UqcOZ1Om3Cb9IBmbS0N5 /Qr81rqW1Frp2DpgmkNSw67dt/OW7Viuz8ivrUFYjQ1dnylwhA38y+s78wUat38/du+gr718yAVUV++O 6Pl+qOL6KAEiU3H0A59e4HF8h8htWQP6U4ALtB7Hzb PeoXfoG9+Z1I39Xe8uDzKyFAyJmka3yWnmmpExAS/Fg3pUMQ/qO4Z+1rCorMWjw6lLx/LKUb86w3V2d0 PiV9n+iV+9Y+gD+p1fIGyhnN0/7/3kieB0g2f7cyPoRujxRK1ywO6+/fZU/NW8x/P7r53R+ULBoG2lvI +y8gDqFy9RsvKIR/Qb+vYnz+jx6oyA/kDf+MaRXt8/ 0t/vkf5+j7T/xRBwcahcDJC5Y8BkBY1L6IKFDuPI9Bpha5u54IM00YZ52LO47CO18Wt/Fd7U5We7P7+i drSgmrH5edA6J+24nAT03kG+/QC/OsCvjqK+wrte3vpfe3kqlzTtKErT8rF+hO80Lzj2L+S/VoTvY2xu 9IrzJ/QT+jP9jd8fagF0TpQltv2xwn5tri1p/9WZge cPlN/z/KMketsm56ZXHwWR0G1xWNK9k7NyoqC00hhV7juoi94xAMbpz5k8/Gqcn77ou5NvtycyqHBjU/ 76Tpt2PmeUu9oev/g3cz4wjLS5V+GLo8mr0/0px3o+cCRnFeD9Acktq2txKB4rFU6udX55drEJ+7WAHt +vob7e/yRSonGoMln23/ePK/QKffuTB/sHD/YPHuwf ME9Ss43T+mL/4MH+gPQ0saZ/6sC/Ooi/Ooi/Ooi/Ooi/Orv3O5+L7ZxxtB1ai0H1qyo0W3g0/tBT/lUe G/AZwn00HnrsNL/6V+8Y+oA+6DsZa8zyyTWxG8coJZ/pFLwz9VG/3zN45YL+uXLkf0Uz/RM9/u0f6Io4 5dn8c2K11Ja5q6c/Swcm8vvYze50IO7V15Ai3nq9ah 3Jm4ByggAlRl55l+f75/R8/5wF/YK+8+ec0/j0ywz547rIY57bO+/5imbInql26kZd7+C+Xd8/d6MB2Z 8UD1JyO+Er60/Q7yY/4Zs1/bc51srT/AkGYdGyaLGvKj/ha8M/wfls/bb/qB3HhpAtBZbN7pyI3fGzKE X5XzbP3KL0s5+g30LsT/ulNZ2SBfkD09joSvOyCEIs VQG/a0pIB5vsu5kltrmOZ3StXTJGL7rFJIMz/D7xTE/fM0463OZnF9XjMaE94urEyg66I1w0kJiiLDqN bO2pd4RTbaVZ63a0bVa6ICSfZ+whJn8C+3II7P8uUXu/4RsJ/vJDZT2FQruLkl3b9LhWtyIvQtaq3qQ+ jD77CkYlMacoi1J/nm2Wq2BknEyHbxIkTdlwbNVphK tWWtCX4TbIo9Dp5uEBHxhYUixOmt1kO3OATNuhqK1JxLGNOBYNFysNEggStS6n4D3PW1B4LqXuhlUOZN 7ltLR7/hPQewGQ/ED2rDXxgVSSdSH082tUc7R6v0W8FcOb0BLCH9Rl4nrPtztIf9rh1/tHQTc21y/7P8 G/ie9P+CvFmhLWcN4ioLD/PgLlV8SEl1XEOMlZYSOc cCBeS9dmB1ou+Y6LAdBqDb+ELTncdjrhJH9wZqS5Jk7J8bP8D2gXG46opMWQCFGddmMGC+K0L3CXsT9/ oFbjYEuFpnvRGkhx5V8JnspWCnIX4akQzcE85d68ko2FFJpu7daM+5cQW1C0hv0fz3NNAcComhCQL9hV nOvzIV4H5g5L0AlJ8qNCk33/AT0++C1gp+Mva/igQI vD7uIhwmaiRURG9gulwmPL/HQjxnmJoPU9GMoBM2eOuGm+Fw7/C4f/BQTn/wT8Fw7/V9xnlM2Z/8JBSt mbZXubVTFxkd99HpS6/wGnNsv5SQ7EP4XvdmV5jaXh804lATaLT6MiEsZQcUKvjGQJ7ztVgL0k9IoucZ 3wqQ/rjqwMvBzZWgJxu86ZmAYDPsCBpjtoilWFzGX2 NWWCW9Un/jrMd6IfzSVoZQntk2TqBlPlL8U0AxqvCU7KBCVycJ0ezP+E1DLkXf1ojyc4RGtjtz0h2BNI /cpM/cpU/director of spa and guest experience/EvfciLWX9Fy5ymAiaW1FpxNvwVxdU5pqulC+xkErw8hltnmHyXZbE6g9Pgw+0+ghW0w [file] [id number] ID Date Data Source [id number] 01/21/2020 11:10:00 AM EDT [facility] ([facility] [place] Name Value Range Interpretation Code Description Data Daphney rce(s) Supporting Document(s) Potassium 4.0 mmol/L 3.6-5.2 [facility] [place] Sodium [Moles/volume] in Serum or Plasma 142 mmol/L 136-145 [facility] [place]) Chloride [Moles/volume] in Serum or Plasma 110 mmol/L 100-108 [facility] ([facility]) Carbon dioxide, total [Moles/volume] in Serum or Plasma 26 mmol/L 22 -31 [facility] ([facility]) Anion gap 3 in Serum or Plasma 6 mmol/L 7-16 [facility] ([facility]) Urea nitrogen/Creatinine [Mass Ratio] in Serum or Plasma 16.2 RATIO 10.0-20.0 [facility] ([facility]) Creatinine [Mass/volume] in Serum or Plasma 1.36 mg/dL 0.80-1.30 [facility] ([facility]) Urea nitrogen [Mass/volume] in Serum or Plasma 22 mg/dL 7-24 [facility] ([facility]) Calcium [Mass/volume] in Serum or Plasma 7.6 mg/dL 8.4-10.2 [facility] ([facility]) Glomerular filtration rate/1.73 sq M.pre dicted [Volume Rate/Area] in Serum or Plasma by Creatinine-based formula (MDRD) 53 ml/min/1.73m2 [facility] ([facility]) Glucose [Mass/volume] in Serum or Plasma 127 mg/dL 70-99 [facility] ([facility]) Glomerular filtration rate/1.73 sq M pre dicted among blacks [Volume Rate/Area] in Serum or Plasma by Creatinine-based formula (MDRD) Laboratory test result [facility] ([facility]) GFR Interpretation Laboratory test result [facility] ([facility]) <content></content>
<content> </con tent>
<content>NORMAL KIDNEY FUNCTION</content>
<content> OR MILD DISEASE - GFR >OR= 60</content>
<content>CHRONIC KIDNEY DISEASE - GFR 15 - 59</content>
<content>RENAL FAILURE - GFR <15</content>
<content> </content>< br/><content>Est. GFR calculation based on the MDRD</content>
<content>study equation, which assumes a steady</content>
<content>state for creatinine. Est. GFR should not</content>
<content>be used for medication dosing.</content>
<content></content> ID Date Data Source [id number] 01/21/2020 11:10:00 AM EDT [facility] ([facility]) Name Value Range Interpretation Code Description Data Daphney rce(s) Supporting Document(s) Leukocytes [#/volume] in Blood by Automated count 10.5 10*3/uL 4.1-11 .0 [facility] ([facility]) Erythrocytes [#/volume] in Blood by Automated count 4.04 10*6/uL 4.60 -6.10 [facility] ([facility]) Hemoglobin [Mass/volume] in Blood 12.9 g/dL 13.5-18.0 [facility] ([facility]) Hematocrit [Volume Fraction] of Blood by Automated count 39.0 % 4 1.0-53.0 [facility] ([facility]) Erythrocyte mean corpuscular volume [Entitic volume] by Auto mated count 96.6 fL 80.0-95.0 [facility] ([facility] Erythrocyte mean corpuscular hemoglobin concentration [Mass/volume] by Automated count 33.0 g/dL 32.0-36.0 [facility] ([facility]) Erythrocyte distribution width [Ratio] by Automated count 14.3 % 10.5-14.5 [facility] ([facility]) Erythrocyte mean corpuscular hemoglobin [Entitic mass] by Automated count 31.9 pg 27.0-32.0 [facility] ([facility]) Platelets [#/volume] in Blood by Automated count 146 10*3/uL 150-450 [facility] ([facility]) Platelet mean volume [Entitic volume] in Blood by Automated count 8.9 fL 7.1-10.7 [facility] ([facility]) ID Date Data Source [id number] 01/21/2020 11:59:34 AM EDT [facility] [place] [facility] Name Value Range Interpretation Code Description Data Daphney rce(s) Supporting Document(s) SODIUM 142 mmol/L (136-145) [facility] [place] [facility] POTASSIUM 4.0 mmol/L (3.6-5.2) [facility] [place] [facility] CHLORIDE 110 mmol/L (100-108) H [facility] [place] [facility] CO2 26 mmol/L (22-31) [facility] ANION GAP 6 mmol/L (7-16) L [facility] [place] [facility] UREA NITROGEN 22 mg/dL (7-24) [facility] [place] [facility] CREATININE 1.36 mg/dL (0.80-1.30) H [facility] [place] [facility] BUN/CREAT RATIO 16.2 RATIO (10.0-20.0) [facility] GLUCOSE 127 mg/dL (70-99) [facility] [place] [facility] CALCIUM 7.6 mg/dL (8.4-10.2) L [facility] [place] [facility] GFR 53 ml/min/1.73m2 (>59) L [facility] [place] [facility] GFR ([facility]) >60 ml/min/1.73m2 (>59) [facility] GFR INTERPRETATION [facility] --NORMAL KIDNEY FUNCTION OR MILD DISEASE - GFR >OR= 60CHRONIC KIDNEY DISEASE - GFR 15 - 59RENAL FAILURE - GFR <15 Est. GFR calculation based on the MDRDstudy equation, which assumes a steadystate for creatinine. Est. GFR should notbe used for medication dosing. ID Date Data Source [id number] 01/21/2020 11:31:38 AM EDT [facility] [place] [facility] Name Value Range Interpretation Code Description Data Daphney rce(s) Supporting Document(s) WBC 10.5 10*3/uL (4.1-11.0) [facility] [place] [facility] RBC 4.04 10*6/uL (4.60-6.10) L [facility] [place] [facility] HGB 12.9 g/dL (13.5-18.0) [facility] [place] [facility] HCT 39.0 % (41.0-53.0) [facility] [place] [facility] MCV 96.6 fL (80.0-95.0) [facility] [place] [facility] MCH 31.9 pg (27.0-32.0) [facility] MCHC 33.0 g/dL (32.0-36.0) [facility] RDW 14.3 % (10.5-14.5) [facility] PLT 146 10*3/uL (150-450) L [facility] MPV 8.9 fL (7.1-10.7) [facility] ID Date Data Source [id number] 01/21/2020 05:03:00 PM EDT [facility] DATE OF EXAM: 01/20/2020RETROGRADE PYELO [...] indicated. D7End of diagnostic report for accession: [id number] Interpreted: Juvenal Elmore MDTranscribed: 01/21/2020 05:02 PMSigned: 01/21/2020 05:03 PM Juvenal Elmore MD -------- [facility] ACC # [id number] BILL # [id number] Name Value Range Interpretation Code Description Data Daphney rce(s) Supporting Document(s) ID Date Data Source [id number] 01/21/2020 06:59:00 AM EDT [facility] [place], [place] [id number] NAME: JOSE VILLATORODATE OF : 1955REPORT: OPERATIONPATIENT NUMBER: [id number] STATUS: OF ADMISSION: 01/20/2020DATE OF DISCHARGE:ROOM:DATE OF PROCEDURE: 01/20/2020PREOPERATIVE DIAGNOSIS: Right ureteral stone.POSTOPERATIVE DIAGNOSIS: Right ureteral stone.PROCEDURES PERFORMED:1. Rigid cystourethroscopy with right stent placement.2. Professional interpretation of radiologic images.SURGEON: FRAN Aguilera HISTORY AND REASON FOR PROCEDURE: This is a very [id number] gentleman with two separate right mid ureteral [...] prepped and drapedin standard sterile fashion. A 22-Ecuadorean 30-degree rigid cystoscope wasinserted under direct vision [...] and the ureteral catheter wasremoved and a 6-Ecuadorean 26 cm double-J stent was placed in [...] double-Jstent overlying the right renal pelvis.DRAINS: Right 6-Ecuadorean 26-cm double-J stent with no string attached.COMPLICATIONS: None.ESTIMATED BLOOD LOSS: Minimal.SPECIMENS: None.DICTATED BY: Raji Wynne MDDictated: 01/20/2020 19:36DT: 01/20/2020 19:41Job #: [id number]: [facility] computer generated reports are not confirmed orauthenticated unless they are signed by the providerElectronically Authenticated by:RAJI WYNNE MD On 01/21/2020 06:59 AM EDT Name Value Range Interpretation Code Description Data Daphney rce(s) Supporting Document(s) ID Date Data Source [id number] 01/20/2020 01:20:00 PM EDT [facility] ([facility]) Name Value Range Interpretation Code Description Data Daphney rce(s) Supporting Document(s) Leukocytes [#/volume] in Blood by Automated count 15.5 10*3/uL 4.1-11 .0 [facility] ([facility]) Hemoglobin [Mass/volume] in Blood 14.3 g/dL 13.5-18.0 [facility] ([facility]) Erythrocytes [#/volume] in Blood by Automated count 4.47 10*6/uL 4.60 -6.10 [facility] ([facility]) Erythrocyte mean corpuscular volume [Entitic volume] by Auto mated count 97.1 fL 80.0-95.0 [facility] ([facility] Hematocrit [Volume Fraction] of Blood by Automated count 43.4 % 4 1.0-53.0 [facility] ([facility]) Erythrocyte mean corpuscular hemoglobin [Entitic mass] by Automated count 32.0 pg 27.0-32.0 [facility] ([facility] Platelets [#/volume] in Blood by Automated count 172 10*3/uL 150-450 [facility] ([facility]) Erythrocyte distribution width [Ratio] by Automated count 14.5 % 10.5-14.5 [facility] ([facility]) Erythrocyte mean corpuscular hemoglobin concentration [Mass/volume] by Automated count 32.9 g/dL 32.0-36.0 [facility] ([facility] [facility]) Platelet mean volume [Entitic volume] in Blood by Automated count 9.3 fL 7.1-10.7 [facility] ([facility]) ID Date Data Source [id number] 01/20/2020 01:20:00 PM EDT MED[facility] ([facility]) Name Value Range Interpretation Code Description Data Daphney rce(s) Supporting Document(s) Sodium [Moles/volume] in Serum or Plasma 142 mmol/L 136-145 MEDENT ([facility]) Carbon dioxide, total [Moles/volume] in Serum or Plasma 26 mmol/L 22 -31 [facility] ([facility]) Potassium 4.7 mmol/L 3.6-5.2 MEDENT (Associ ated [facility]) Chloride [Moles/volume] in Serum or Plasma 108 mmol/L 100-108 [facility] ([facility]) Creatinine [Mass/volume] in Serum or Plasma 1.50 mg/dL 0.80-1.30 [facility] ([facility]) Anion gap 3 in Serum or Plasma 8 mmol/L 7-16 [facility] ([facility]) Urea nitrogen [Mass/volume] in Serum or Plasma 25 mg/dL 7-24 [facility] ([facility]) Urea nitrogen/Creatinine [Mass Ratio] in Serum or Plasma 16.7 RATIO 10.0-20.0 MEDENT ([facility]) Glucose [Mass/volume] in Serum or Plasma 147 mg/dL 70-99 [facility] ([facility]) Glomerular filtration rate/1.73 sq M pre dicted among blacks [Volume Rate/Area] in Serum or Plasma by Creatinine-based formula (MDRD) 57 ml/min/1.73m2 MEDENT ([facility]) Glomerular filtration rate/1.73 sq M.pre dicted [Volume Rate/Area] in Serum or Plasma by Creatinine-based formula (MDRD) 47 ml/min/1.73m2 [facility] ([facility] [place]) Calcium [Mass/volume] in Serum or Plasma 8.6 mg/dL 8.4-10.2 [facility] ([facility] [place]) GFR Interpretation Laboratory test result [facility] ([facility] [place]) <content></content>
<content> </con tent>
<content>NORMAL KIDNEY FUNCTION</content>
<content> OR MILD DISEASE - GFR >OR= 60</content>
<content>CHRONIC KIDNEY DISEASE - GFR 15 - 59</content>
<content>RENAL FAILURE - GFR <15</content>
<content> </content>< br/><content>Est. GFR calculation based on the MDRD</content>
<content>study equation, which assumes a steady</content>
<content>state for creatinine. Est. GFR should not</content>
<content>be used for medication dosing.</content>
<content></content> ID Date Data Source [id number] 01/20/2020 02:07:19 PM EDT [facility] [place] [facility] [place] Name Value Range Interpretation Code Description Data Daphney rce(s) Supporting Document(s) SODIUM 142 mmol/L (136-145) [facility] [place] [facility] POTASSIUM 4.7 mmol/L (3.6-5.2) [facility] [place] [facility] CHLORIDE 108 mmol/L (100-108) [facility] [place] [facility] CO2 26 mmol/L (22-31) [facility] [place] [facility] ANION GAP 8 mmol/L (7-16) [facility] [place] [facility] UREA NITROGEN 25 mg/dL (7-24) H [facility] [place] [facility] CREATININE 1.50 mg/dL (0.80-1.30) H [facility] [place] [facility] BUN/CREAT RATIO 16.7 RATIO (10.0-20.0) [facility] [place] GLUCOSE 147 mg/dL (70-99) H [facility] [place] [facility] CALCIUM 8.6 mg/dL (8.4-10.2) [facility] [place] [facility] GFR 47 ml/min/1.73m2 (>59) L [facility] [place] [facility] GFR ( AMER) 57 ml/min/1.73m2 (>59) L [facility] [place] [facility] GFR INTERPRETATION [facility] [place] --NORMAL KIDNEY FUNCTION OR MILD DISEASE - GFR >OR= 60CHRONIC KIDNEY DISEASE - GFR 15 - 59RENAL FAILURE - GFR <15 Est. GFR calculation based on the MDRDstudy equation, which assumes a steadystate for creatinine. Est. GFR should notbe used for medication dosing. ID Date Data Source [id number] 01/20/2020 01:38:40 PM EDT [facility] [place] [facility] [place] Name Value Range Interpretation Code Description Data Daphney rce(s) Supporting Document(s) WBC 15.5 10*3/uL (4.1-11.0) H [facility] [place] [facility] [place] RBC 4.47 10*6/uL (4.60-6.10) L [facility] [place] [facility] HGB 14.3 g/dL (13.5-18.0) [facility] [place] [facility] [place] HCT 43.4 % (41.0-53.0) [facility] [place] [facility] [place] MCV 97.1 fL (80.0-95.0) H [facility] [place] [facility] [place] MCH 32.0 pg (27.0-32.0) [facility] [place] [facility] [place] MCHC 32.9 g/dL (32.0-36.0) [facility] [place] [facility] [place] RDW 14.5 % (10.5-14.5) [facility] [place] [facility] [place] PLT 172 10*3/uL (150-450) [facility] [place] [facility] [place] MPV 9.3 fL (7.1-10.7) [facility] [place] ID Date Data Source [id number] 01/20/2020 01:00:00 PM EDT [facility] ([facility]) Name Value Range Interpretation Code Description Data Daphney rce(s) Supporting Document(s) Color of Urine by Auto Laboratory test result [facility] ([facility]) Clarity in Urine by Refractometry automated Laboratory test result [facility] ([facility]) pH of Urine by Automated test strip 5.5 5.0-7.5 [facility] ([facility]) Specific gravity of Urine by Refractometry automated 1.017 1.003 -1.030 [facility] ([facility]) Leukocyte esterase [Presence] in Urine by Automated te st strip Laboratory test result Abnormal (applies to non-numeric results) [facility] ([facility]) Nitrite [Presence] in Urine by Automated test strip Laboratory t est result Abnormal (applies to non-numeric results) [facility] Protein [Mass/volume] in Urine by Automated test strip Laborator y test result MED[facility] ([facility]) Glucose [Mass/volume] in Urine by Automated test strip Laborator y test result [facility] ([facility]) Ketones [Mass/volume] in Urine by Automated test strip Laborator y test result [facility] ([facility]) Urobilinogen [Units/volume] in Urine by Test strip 1.0 mg/dL 0-1.0 [facility] ([facility]) Hemoglobin [Presence] in Urine by Automated test strip Laborator y test result Abnormal (applies to non-numeric results) [facility] Bilirubin.total [Presence] in Urine by Automated test strip Laboratory test result [facility] ([facility]) ID Date Data Source [id number] 01/20/2020 01:00:00 PM EDT [facility] ([facility]) Name Value Range Interpretation Code Description Data Daphney rce(s) Supporting Document(s) Leukocytes [#/area] in Urine sediment by Microscopy hi gh power field Laboratory test result 0-5 [facility] ([facility]) Epithelial cells [#/area] in Urine sediment by Microsc opy high power field Laboratory test result [facility] ([facility] [place]) Erythrocytes [#/area] in Urine sediment by Microscopy high power field Laboratory test result 0-2 [facility] ([facility] [place]) Bacteria [#/area] in Urine sediment by Microscopy high power field Laboratory test result [facility] ([facility] [place] ID Date Data Source [id number] 01/20/2020 01:00:00 PM EDT [facility] ([facility] [place]) Name Value Range Interpretation Code Description Data Daphney rce(s) Supporting Document(s) Bacteria identified in Urine by Culture Laboratory test result [facility] ([facility]) SPECIMEN DESCRIPTION MIDSTREAM UR INE,CLEAN CATCH [...] CIPROFLOXACIN >=8 RESISTANT ID Date Data Source [id number] 01/22/2020 08:14:42 AM EDT [facility] [place] [facility] SPECIMEN DESCRIPTION MIDSTREAM UR INE,CLEAN CATCHCULTURE [...] rce(s) Supporting Document(s) ID Date Data Source [id number] 01/20/2020 02:04:10 PM EDT [facility] [place] [facility] Name Value Range Interpretation Code Description Data Daphney rce(s) Supporting Document(s) URINE WBC (0-5) [facility] [place] [facility] URINE RBC (0-2) [facility] [place] [facility] EPITHELIAL CELLS 2+ [HPF] [facility] [place] [facility] BACTERIA 1+ [HPF] [facility] [place] [facility] ID Date Data Source [id number] 01/20/2020 01:27:50 PM EDT [facility] [place] [facility] [place] Name Value Range Interpretation Code Description Data Daphney rce(s) Supporting Document(s) COLOR [facility] [place] [facility] APPEARANCE [facility] [place] [facility] SPEC GRAV URINE 1.017 (1.003-1.030) [facility] [place] PH URINE 5.5 (5.0-7.5) [facility] [place] [facility] LEUK ESTERASE 2+ (NEG) A [facility] [place] [facility] NITRITE URINE (NEG) A [facility] [place] [facility] PROTEIN URINE (NEG) [facility] [place] [facility] GLUCOSE URINE (NEG) [facility] [place] [facility] KETONE URINE (NEG) [facility] [place] [facility] [place] UROBILINOGEN 1.0 mg/dL (0-1.0) [facility] [place] [facility] [place] BILIRUBIN URINE (NEG) [facility] [place] [facility] [place] BLOOD/HGB URINE 3+ (NEG) A [facility] [place] [facility] [place] ID Date Data Source [id number] 01/20/2020 12:52:00 PM EDT [facility] ([facility] [place] Name Value Range Interpretation Code Description Data Daphney rce(s) Supporting Document(s) Comment Laboratory test result [facility] JAV[facility] ([facility] [place]) THE [place] FDA HAS MADE THIS TEST AVAILABL E UNDER AN EMERGENCY USE AUTHORIZATION (EUA) FOR THE DETECTION AND/OR DIAGNOSIS OF THE VIRUS THAT CAUSES COVID-19. EMAILED TO [facility] AT [id number] [place] [id number] [place] [id number]. Covid19 Result Laboratory test result [facility] ([facility] [place]) THIS ASSAY AMPLIFIES AND DETECTS THE TARGET RNA USING REAL-TIME PCR. NEGATIVE 2019_NCOV RT-PCR RESULTS DO NOT PRECLUDE 2019_NCOV INFECTION AND SHOULD NOT BE USED THE SOLE BASIS FOR PATIENT MANAGEMENT DECISIONS. Specimen source [Identifier] of Unspecified specimen Laboratory mikki t result [facility] ([facility] [place]) Employed In [employer] [facility] Laboratory test result [facility] ([facility] [place]) First Test Laboratory test result ME DENT ([facility] [place]) Symptomatic Laboratory test result M EDENT ([facility] [place]) Icu Laboratory test result [facility] ([facility] [place]) Patient was hospitalized because of this condition Laboratory test re sult [facility] ([facility] [place]) Illness or injury onset date and time Laboratory test result [facility] ([facility] [place]) Laboratory test result [facility] ([facility] [place]) Congregate Care Set Laboratory test result [facility] ([facility] [place]) ID Date Data Source [id number] 01/20/2020 12:52:00 PM EDT [facility] [place] [facility] Name Value Range Interpretation Code Description Data Daphney rce(s) Supporting Document(s) SARS coronavirus 2 RNA [Presence] in Res piratory specimen by ASCENCION with probe detection [facility] [place] [facility] This lab was reported by [facility] [place] [facility]. ID Date Data Source [id number] 01/20/2020 03:17:15 PM EDT [facility] [place] [facility] [place] Name Value Range Interpretation Code Description Data Daphney rce(s) Supporting Document(s) SPECIMEN DESCRIPTION [facility] [place] COVID19 RESULT (NDET) [facility] [place] [facility] THIS ASSAY AMPLIFIES AND DETECTSTHE TARG ET RNA USING REAL-TIME PCR.NEGATIVE 2019_NCOV RT-PCR RESULTS DONOT PRECLUDE 2019_NCOV INFECTION ANDSHOULD NOT BE USED THE SOLE BASISFOR PATIENT MANAGEMENT DECISIONS. COMMENT [facility] [place] [facility] [place] UNDER AN EMERGENCY USE AUTHORIZATION(EUA ) FOR THE DETECTION AND/OR DIAGNOSISOF THE VIRUS THAT CAUSES COVID-19.EMAILED TO [facility] AT [id number] [place] [id number] YL [id number]. FIRST TEST [facility] [place] [facility] [place] EMPLOYED IN [facility] [place] SYMPTOMATIC [facility] [place] [facility] [place] DATE OF SYMPT ONSET [facility] [place] HOSPITAL[facility]ED [facility] [place] [facility] [place] [facility] CONGREGATE CARE SET [facility] [place] [facility] ID Date Data Source [id number] 01/20/2020 11:14:00 AM EDT [facility] ([facility] [place]) Name Value Range Interpretation Code Description Data Daphney rce(s) Supporting Document(s) Bacteria identified in Urine by Culture Laboratory test result [facility] ([facility] [place]) SPECIMEN DESCRIPTION MIDSTREAM UR INE,CLEAN CATCH CULTURE [...] CIPROFLOXACIN >=8 RESISTANT ID Date Data Source [id number] 01/22/2020 08:23:27 AM EDT [facility] [place] [facility] - CORE SPECIMEN DESCRIPTION MIDSTREAM UR [...] rce(s) Supporting Document(s) ID Date Data Source [id number] 01/20/2020 10:51:00 AM EDT [facility] ([facility] [place]) Name Value Range Interpretation Code Description Data Daphney rce(s) Supporting Document(s) Glucose [Presence] in Urine Laboratory test result [facility] ([facility] [place]) Protein [Presence] in Urine by Test strip Laboratory test result [facility] ([facility] [place]) Blood [Presence] in Urine by Visual Laboratory test result [facility] ([facility] [place]) Ua Leuko Laboratory test result [facility] ([facility] [place]) Ua Nitrite Laboratory test result [facility] ([facility] [place]) Color of Urine Laboratory test result [facility] ([facility]) Ketones [Presence] in Urine by Test strip Laboratory test result [facility] ([facility]) Clarity of Urine Laboratory test result [facility] ([facility]) pH of Urine by Test strip 5.5 5.0-7.5 [facility] ([facility]) Ua Specific [place] 1.020 1.003-1.030 MEDE NT ([facility]) Urobilinogen [Mass/volume] in Urine by Test strip 0.2 E.U./dL 0.0-1.0 [facility] ([facility]) Bilirubin.total [Presence] in Urine by Test strip Laboratory test res ult [facility]ENT ([facility]) ID Date Data Source [id number] 10/24/2019 07:45:00 AM EDT [facility] Name Value Range Interpretation Code Description Data Daphney rce(s) Supporting Document(s) Colonoscopy [facility] PXSMZs9xCiZKOgOcVAZqDbiMTVtyPPvvHIWvR6Y6IVqxLd0HYNcvreUoIAZmRx4+EQGnBK3ytk3bQSRg gMy 1aEIUgQpsrL3XdVJTuw98CAYCoQWbICtHlHkNpJkIeVBkyBXDfZFJ5RaQbVqugEH8vGDZ5DVEtXQrdQM UoWXjqRRF5NyzeUC3vZRoiUJzwCr5RFT4op2ZnUQOrQFBtRbbQZTioYFrwSDPwNYVtXAOpP276beVdPv 7NhCHsBLz3ZKLzIcB1YFXtRhU9XNFiRb9bUkGzs6Dr F8UbHSn5Y8fZDrmkO7CxZWgaYD3kBKG2HVZnUj9VnAgaXHjkLYBUY8rrHsAyHTLgLBPAVc7+Pj4+DWVu DN2wgz40ABDvv3DaGEf4F6T2yPBnF3LdS9CsUARylWXWh1dbZyFnMTV3KGWdSvfkPK5TUJUzqWFwYCLb BHvoSH1aipIfzXA9YI5VbSacAWIjRTVAXy2+Pi9QYX KiqdOsFtYoPPFjS96fyDWlxGWtGmhpEADFIX6+SPTuHQ5zoq40RDNml5OcZBf8I2zdsbr1mLSsWyN9PW YlFvZxVPEpLN8mUI5VgMI0hBKmBC0MnBHuKB9QfAIiSN2HW0ZgCZI1T8XegDCyfuBvX0WgHGCrTGKpw4 NwEQ9RY7NRFNWrVUCnB9EatX4oP9XdP2UyU8Tqzdqw HBJFVa9SkQZ1fTRvJWZwS9dgyQzttZLgKNedP2LkjUERLGSQj88om88tchIgOD9+j9QzNOSgDCr19dz9 ZVAcX/jrWHATVgj2KGoxSANzRdQUiy6dF0ksBzD5CLs2XeqwcLX7E7iVnJXL2//udqk6mac0jw/eD+/z 2ZYAxd3+w3re1nJj3kQv0CMCGByaFQLMrREWJSDM39 rolMw4YRzexYcwdTgE+FBlELLEuKAeu3jH9I7Qx5MEydNbKuA17+Tr8ssx9sak1tRr6+Lm/WywXA6xy1 ZHQyfGwCDmfEv+lvP/IB34LQadwXutgjVFEmSKHgRHJ+PuC9MZGMWdLifUUU1wZVuJOrVsa7Swq3Z0IJ CPDXiFAAS+QgQiISEi/u31+feWTLKFtg9R3EAYQ1gG [file] member service representative+6HJr3kdnaGEX7q+inEWeV/rpu6kicnqr2w99LD+PxlfMmLn1pYqsucJhbCdTqGhs9nWw9sTPB6TY [file] SfYxh+cgVqJfUUTdyOowAJcjcQsYXUh11ZfqfMlgOGltYDp/Gn8Rg6i1y6cj5JwtF3lKRDEzWiw/b/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 [file] FJQu5xFRgR1F+5dA/8xQqM3jeZFzKZ+n/nG04LONJA/iC2A6a5ohX+oIqQ+x+[place] [employer]+JQiWltr2jHpFuca [file] cgfYj/YFXQO5F9CnIHONre1b2k8WRDeBhv0XN405vRIE82kVZ6p/6+9NKHXs7m8RU/Riley++vzmQnUGUM P/YShfyC/AsfmcudOD1t+kG1UDbuGbILFokgFk6Jsv 4FdrE5uc20HjaEKxxehx9op2L97uLIM/LhZIfa5xgQBYItbgwIzQASIbSpOjjii2JbpTO4DDG41n/7Ua r2GpIQ+ITljuFpwsvV4p3lgEzPeSQ19eiC51MCJr116iNNNUTreMNcrUMEAbFAyEC2g4/cHMUw65dAm7 Ed3infqGDuvsQxbIl1Vurm+6D5yFdpXgd1YMSj35NI GVVeNUPVbV0p0ag17OQp2R2n4keO30+hZz7IEI4HY6HAcsamUKEr7EoUzTEi/bofN9c+FU5vCyOzCYsT 3udFbYo8tIL4K0Qgcvl4mIvu0ev6XqAwpJSlL+SjZhv5QzG/XffN//SHZVE0VBw/I46VxptcqLhzaq1E bxXO5aLlzwXW6HRhKMrZA3POcTXc3Hsf1UrMr3hFzn yXYx9dWhZ0Qzo7IbyWrEVOa3tX/s4GN1TLW1PhrudAmZO4SHcFe/HhNcc9emYyz85lRM/mmxo7XvfuWG Y5VV6Y983I3tYz+jy9Qc6IS9ljzg6+nVM1WH69sKzlwzsClFUunmo11juOv+uPzaAI3h4ol88th7AoIj myc2XuhOdNJussDKBmeaRwvAGkQY3SC9O9CDR8S2zE rFSHNJ4wBuh8gmX32c+higIGPvc9XXxOxkfUNIel8bEEuow+rDGWELsxXZYtEhVlW3/RQ0k2vu73JJjf Wjjtw5ACGGYU/HPKUGW5+rT/8agHmSucOSHadkOHKX/d0SwchKQ5530keb9Y9zw+EIYG90yEM2ano8XL QUvbzLTHeoFnFDgD2vC3EGRGttk3+bhC+LjXkqhqHd yQ8sbUU0/iMPyCwxpoBMpZFtQUodHGlcC+Sanjuana/vStKsnxGFKo05RRsjm1jeb5tw3J4btNcDM0oKJRIGT KGxwTxaOxKiH946X2s8uXFxK5GSa6DnhjOFbZucUvjfZAhR1Hx0ghTDfgk5A5jPqBIA/tDQRuP96lk9b yvSrIliKqur5oRfLajuSbPYvlSwbJWBykk+WQWejjv MANAGER COUNCIL/c1jQpA1AboWnW6OdzsLyc6AOM1xR+z3jN91FG0KXFdm18gL6el81dZpl7hzSyK3Ce+PomyAXk3n9b [file] Can Filling Room Sweeper/Il5gfGVfgk3TaAbz3e59yMxAELBry9qDCuaiyt8SIF26N59NDbSjFCftFuiChjOctrOeykUNorFhg [file] eHjkzpyfVr25dl6a1tnmyTH6l/XMpNjpxt3Cfsbn/T k9n84GdPalRZnX2ruQg/kFNV+wlVVp6ftXBRM+Rk/T3weSheN/L7NKxc/vnd57O3HCblYkGLXgLR/KyQ f/Grw+jPrXK2WYAdQtzwI2seg1WbeIvKmYAb+wMNq7klEoMzwtpHJQMiiTVZBw6ms8gG5jneme8LKU2m +LHw10AX1J6TN4tUdb7ocSW068xg/CPQHIFNIN7b8j DF//ZoJRl0HomzZH6aDsYbYwmO5zQY6jTU5rvt5w2g9augHYWn7xISK62b0yhhOLNvTERwpHwsqPQqru CKrH0VY7DRJEMYD6X3DhclXxreLgHXU7Vrfom1Z6RyzBsVrqtOCbez8hZ7fonhhf5RhFpq1dm2A/dpbU 9l72nBZa8uSinHnKiad+LqcVi5dH/7JmhC0vHbICNL DS8mffxitduRpom0s/FoNDaivncy9aczecggB0G1OO14TX76+9AFjyLxb9+h4ca1eSCB/6g50/YD1pw7 rnLuB1eGRHRObHpy22bKp5vuN3wXyvVhyXmKZHOB6OdTIMWM+J7cL0cNnRlq522PE4npeeA6v6Hnuo+i QRdTbfe8yjG91K/ndJYs6xn1jUTJRPBqueQwouRJqF lsZilmgfCoLY3W6ZV0iBKaDyum2NZVC1tlCh4BjsBxV+YrGyoy1rD56ejE15B4Nen4XAfvao74Rn1fBb 4anwsPRLMe6OJUT/i4rM/86OCQXl/5vH+u9RsMyjcN1PTQ8ce0EeKZCjMEIvZV4yhs7gFdDuHE3ubh19 CG4STW8eeQxwZfM+XdV6bgEbkA1YgVp8JXVyHEAhZM z2LlAdUXFdK31HY7yjMvYkZW6MIW7JLN9wm0ZlINSpEPQfHO7ceb2qTvTlRQ0nck46WW7WuEu4BWHoJ9 GtTGQjROSjd0PyF5jqpwz6gKK8AV4JOEQrRTMLVwjNQzH2ZBWXMfR5JFPTHKZ9XqDaWVCgQjFCVOUGLs W1FJMQEQNpMUyXGAF9PVBHOaCzCNTaVkH9QJMuOYNU M0M+VG5Bk784KMSySYHHO9wnNj4kHtYdYCZkB6o6CGVdAF0HsAPeMA4UFnWsN5mmGpMmFHSiWW9+c3Ry GOKnCQh07oKgZXWwYDNSxnlp6oXTzuAYoVWp6mJEMMeJKmJoo0v2idRPm/EbiHQqBpNHgCRnUTOYvMIA YKLRG6pKQwGeSAR6icSqxW7QUN2ba5BzOQ7Du2TmzoI9ntBjHFf4RPbbJrBVZmWdTI1T ID Date Data Source [id number] 10/03/2019 01:15:00 PM EDT [facility] [place] Name Value Range Interpretation Code Description Data Daphney rce(s) Supporting Document(s) Follow Up [facility] [place] SLXEKn2lEeGQXnRzLYWvKsjQWBfeFPpuTNIyI2I4XUpfIq8BDVkdxcIhPDNsKy9+YEYvQW7prz4tZAWs gMy [file] ZOe0I9cTmjXnCq/GWv4bM5u4/vhsENPhiM1GzfSjVm+EtsFwqk5a7EPBqgqi4t3LuKJDcR+enginehouse 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/DVUfl/ [file] JtjKot33K0ltbMz0vSfWidteajEavVg0kgNs1GSO6UzRRpTZ53dpDXeP6FQlo7uiMAonT0tlaqUn/supervisor pumping [file] Alexandre+cRr+dxhZEUg5A0yZiGM9W1lMlwM1pCAPE4cqWd/rf2Y+Z1PJcdLVB42pW/rBq9tqhsJiWWEmiZB/ UGWzBQdo3MpdJqvNUF5/uZhba7RvdB3d42ZwrWai/[facility]//zG1q8I6RqTPrkR2eO6L9gcZaaW89Pv6t3e [file] maria c+fcbGqK1jGsT0e4PfgWWexS/4X5w3Qn5FhwF78TR5nAamnL0i1y/5Npk43+xcPVlXPC4fkjAr5RSL [file] H2zlZevIWEAE+XrfUwVRLaJ52t64B6TF/aiE2jWCa8xYbrrZ3Krt/fundraising officer+lRvNRVfx28MfJamN/thrXnv 2770h+rUvLqqx1/P/TVhAeduG44XmXi2O9139anZ7l AOW902tjjJVsgCZIuqJBieGOdAz6MLYjYZapfpZyBd5/jP0UHpaMxdm6po1WKR2OOc6TGUim3ogMNt+s +JogoX6EtHU9r4qJyVu/41REa4Wvq8m/XSFRPA52zV16cBq2IKf6uRudtZGOHAiGmamwG/SxNRe0hgEp FClqAVHHb0SlpNoBlKEHsIJe0dXR8s+TsgqMtL+u2Z e9MjLjL78VjRQO5SamXKqZnwCht8uW673HOo7oyaLNma44riyFp4hn7NH/+65nL8ArTDFmGEhrxaZfjr DWBVtgo7SXY3TKs/zk3E1ZWJG1eHjBcvFdxwtnfwEyGieP91p3i/n6MJcxIlpX28jDK35sAj3tEBigp1 3pZN7qLRuFnYzKnZKhUMZkY7x4lZ7urJkf6Cj8xd7G 0n6ZXZCOKFTLPa5M01IZSTa+kLVEGZI+yvednBCbyhFyqHNH+sAbyxyMc9ouZ8ogUmsqf6hLVBjt/zTX 1VDAVmWbhUOTjslPLSy92ouyJch0mLdSI5XN4gcdp5WSl4biQwpXdsdmpjRCsB8dZ4zFxlMSKILVfApU brZtA5w0mka3epCPjMKO+44Biz98x73ROIJjUEogFr sFNLYxxSvFMVqnxYveYzSsgtb7WYflBkOa6M3uIy82+vRmJS4nYLGxr28RCD9IQi0Z2RMzG1aKOJkY9R iTnPeEDf4y74KG+Er2IT+EHtgOjfw5W/fypM7Ibklbmz5qasnTxuU4kZ9I7/zLzrJw/Ync9c4FmLBUJk bs3u7s2h/prIRFIYx67tD4Tfk/sisQOj0WCewyuUK0 shaquille+flaMK+QNlFElwvV4oEZsUBL+KbDQVL8poONRrupZ52K3u8cGkAyaobayA5OJ+lmB7Flz5d4BPUJe [file] VrKibyCmlK/CLec0NlYBa9bQr8IjPnCXUf0gJn8xkOfjRQosSDq9d9HgG1AZHoHQvsxgnaAAHqRoC+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 [file] UyFnk3gO0QHcZn0VQ6R+CROP PULLER+oggrZKzdokDAvthuOEfzhDjJL7kolpkBgKTAPEVvaDj/gvmmdow8ahmHZ [file] JtKdP7fU9ElBvG4MO4wFmUWII4GUScwCIQr4UL+coat tailor [file] 8YJcgl8TqeLy+P/qFVzQxRxB7KJNixe101l8RR+GxgxIl3PaAjIC+mary beth+uVztVxll1bK3PDoHCi/6+IP [file] NWQSb0P6UtUKu0eB9bFqImyhV6w/8ve/assistant tennis coach/jfEXjpCGDoWg+OpW2u+mwdS4KCyKJfXEE0cdJnbSVboS [file] sjIkhQXVQN1uHFmCveDEFUHIVDSKPBSv0OB6yspvwj fIPxPv8NJz/6FoupPxV7veuc47DlsqKKvpSXZgUmvRV8HvcsUP0kEIhSEOzG0dHOEzGld6LbSjO7/Y6C aa3AiIjh5iM2ECc+5/nVoyr1+3140toUcrtL3vNWW6ADCA65TieeimdNxB3D931Bwfb6UafQsPjNAAt9 AFoa+3SLYrzqt8xJKFdwWl9uIJ3l9wkRtldmPqgrKw otZ8iToXzhRbteVFLPBGpd1hzowr4btOrceAXUMfmm74zoElsXQDLHrK0tjeyoZnnEZWyArfumalk+vX pp1VEw/gv95IyDnLH4D0dUAy6RAQdAPsvnD0LRjOK7829DeedpAIqI18h56Kxxphni+da2KamnjOeiH1 YjeoKk5Q+VMLmbcj+enginehouse brakeman+WVItIGDKZMgo1luo0H4ggz [file] 8xfnM9BPZ2aB5+Feltmaker And Weigher+Aavu/Venus/yr8rGxtm6I2ZYsPFeE8icDNs4pp565FL8/XwkCnANICRxmK+UwgDtA [file] Luis Eduardo/9BfUs9HqaYRpWlM1IXnCIUVFGfisLSMzNyn+RV4MfhW/EXzssaUfffO1a3qOfktHPK/GM7IJxTFP ZJZJWFSTjfMxPLDtskNPlfeI5AD5z5rdIry20zobWH qpaWdSt69sCEX7J6nUDa1WRSmrkiW6gXeXW4ShdpcxgxhW/er5j4+WnsgcSTzXz+u+5qlQxqnr3+CMil oFxGPdELCLLMXVANkdn9O7vAcGIL0zCkKwXELGAxrhwhPwvCZ+Ne7+mYUT8EGF4tK2kHL8zu1G+tMX+1 HVxbZ7H+XKvSYjrZOiLs3HFRpes2l/fv8H1Ox2812F c/Dj5/mOTnls+GZlYGbe5nQZ3sTqktgT5zkO4IrgqW3B136dAiP6phwqu4MaNB9fAQFltgMCcB0+R4bW RHQxS0jdOZi2P2Gp5puCqAg0WkgtKM79GpjP4P0mvBUzzJdctXPXjqh7ap2z2bdb77Zz6yf2s1wyL9rf PakH+LWTUH9gkb6UE7nVVIMFMR5PWHBP6MekcmQcTZ [file] XTtuptJjsQFwYR2AVgTnOE7vya4YQeL8ZSI7oNFpXz1HXQIrEZU7Ju8GSYAXX3J= ID Date Data Source [id number] 09/02/2019 10:01:00 AM EDT [facility] ([facility]) Name Value Range Interpretation Code Description Data Daphney rce(s) Supporting Document(s) Urate [Mass/volume] in Serum or Plasma 4.9 mg/dL 3.7-8.6 [facility] ([facility]) A courtesy copy of this report has been sent to [phone] Calcidiol [Mass/volume] in Serum or Plasma 31.7 ng/mL 30.0-100.0 [facility] ([facility]) A courtesy copy of this report has been sent to [phone] ID Date Data Source [id number] 09/02/2019 10:01:00 AM EDT [facility] ([facility]) Name Value Range Interpretation Code Description Data Daphney rce(s) Supporting Document(s) Urea nitrogen [Mass/volume] in Serum or Plasma 21 mg/dL 8-27 [facility] ([facility]) A courtesy copy of this report has been sent to [phone] Glucose [Mass/volume] in Serum or Plasma 136 mg/dL 65-99 [facility] ([facility]) A courtesy copy of this report has been sent to [phone] eGFR If NonAfricn Am 62 mL/min/1.73 [facility] ([facility]) A courtesy copy of this report has been sent to [phone] Creatinine [Mass/volume] in Serum or Plasma 1.24 mg/dL 0.76-1.27 [facility] ([facility]) A courtesy copy of this report has been sent to [phone] Sodium 144 mmol/L 134-144 [facility] ([facility]) A courtesy copy of this report has been sent to [phone] BUN/Creatinine Ratio 17 10-24 MEDE NT ([facility]) A courtesy copy of this report has been sent to [phone] eGFR If Africn Am 72 mL/min/1.73 MED ENT ([facility]) A courtesy copy of this report has been sent to [phone] Carbon Dioxide, Total 24 mmol/L 20-29 MED E[facility] ([facility]) A courtesy copy of this report has been sent to [phone] Chloride 105 mmol/L 96-106 [facility] ([facility]) A courtesy copy of this report has been sent to [phone] Potassium 4.6 mmol/L 3.5-5.2 [facility] ([facility]) A courtesy copy of this report has been sent to [phone] Calcium [Mass/volume] in Serum or Plasma 9.4 mg/dL 8.6-10.2 [facility] ([facility]) A courtesy copy of this report has been sent to [phone] ID Date Data Source [id number] 09/03/2019 04:06:00 AM EDT [facility] Name Value [...] mg/dL 8.6-10.2 [facility] ID Date Data Source [id number] 09/03/2019 05:06:00 AM EDT [facility] Name Value Range Interpretation Code Description Data Daphney rce(s) Supporting Document(s) Vitamin D, 25-Hydroxy 31.7 ng/mL 30.0-100.0 [facility] Vitamin D deficiency has been defined by the [place] of[employer] and an Endocrine Society practice guideline as alevel of serum 25-OH vitamin D less than 20 ng/mL (1,2).The Endocrine Society went on to further define vitamin Dinsufficiency as a level between 21 and 29 ng/mL (2).1. IOM ([place] of [employer]). 2010. Dietary reference intakes for calcium and D. [place]: The National Academies Press.2. Deonna MF, Dustin TERRY, Raulito LEE, et al. Evaluation, treatment, and prevention of vitamin D deficiency: an Endocrine Society clinical practice guideline. JCEM. 2010; 96(7):1911-30. ID Date Data Source [id number] 09/03/2019 08:08:00 AM EDT [facility] Name Value Range Interpretation Code Description Data Daphney rce(s) Supporting Document(s) Uric Acid 4.9 mg/dL 3.7-8.6 [facility] Therapeutic ta rget for gout patients: <6.0 ID Date Data Source [id number] 08/22/2019 12:00:00 PM EDT [facility] ([facility]) Name Value Range Interpretation Code Description Data Daphney rce(s) Supporting Document(s) Laboratory test finding (navigational concept) Laboratory test result [facility] ([facility]) ID Date Data Source [id number] 08/22/2019 12:00:00 PM EDT [facility] ([facility]) Name Value Range Interpretation Code Description Data Daphney rce(s) Supporting Document(s) 24 hr Creatinine 1577 mg/d [facility] ( [facility]) Source of Specimen: Urine 24 hr Calcium per 24 hr Creatinine 50 mg/g 34-196 [facility] ([facility]) Source of Specimen: Urine 24 hr Calcium per Kilogram Body Weight 0.6 mg/d/kg [facility] ([facility]) Source of Specimen: Urine 24 hr Creatinine per Kilogram Body Weight 12.3 mg/d/kg 11.9-24.4 [facility] ([facility]) Source of Specimen: Urine ID Date Data Source [id number] 08/22/2019 12:00:00 PM EDT [facility] ([facility]) Name Value Range Interpretation Code Description Data Daphney rce(s) Supporting Document(s) 24 hr Chloride 158 mmol/d 70-250 [facility] ([facility] [place]) Source of Specimen: Urine 24 hr Sulfate 41 mEq/d 20-80 [facility] ([facility]) Source of Specimen: Urine 24 hr Sodium 179 mmol/d 50-150 [facility] ([facility]) Source of Specimen: Urine 24 hr Potassium 54 mmol/d 20-100 [facility] ([facility]) Source of Specimen: Urine 24 hr Ammonium 47 mmol/d 15-60 [facility] ([facility]) Source of Specimen: Urine 24 hr Urea Nitrogen 13.42 g/d 6.00-14.00 MEDEN T ([facility]) Source of Specimen: Urine 24 hr Magnesium 121 mg/d 30-120 [facility] ([facility]) Source of Specimen: Urine 24 hr Phosphorus 1.359 g/d 0.60-1.20 [facility] ( [facility]) Source of Specimen: Urine This value shows an increased risk factor of 1, where 0 is normal and 7 is extremely high. Protein Catabolic Rate 0.8 g/kg/d 0.8-1.4 AR DENT ([facility]) Source of Specimen: Urine ID Date Data Source [id number] 08/22/2019 12:00:00 PM EDT [facility] ([facility]) Name Value Range Interpretation Code Description [facility] Supporting Document(s) Interpretations Collection A Laboratory test result MEDENT ([facility]) Source of Specimen: Urine : Urine [...] as noted above. ID Date Data Source [id number] 08/22/2019 12:00:00 PM EDT [facility] Name Value Range Interpretation Code Description Data Daphney rce(s) Supporting Document(s) pH 5.441 5.800-6.200 [facility] ([facility] [place]) Source of Specimen: Urine This value shows an increased risk factor of 4, where 0 is normal and 7 is extremely high. 24 hr Uric Acid 0.317 g/d [facility] ([facility]) Source of Specimen: Urine 24 hr Calcium 80 mg/d [facility] ([facility]) Source of Specimen: Urine 24 hr Citrate 109 mg/d [facility] ([facility]) Source of Specimen: Urine This value shows an increased risk factor of 5, where 0 is normal and 7 is extremely high. Urine Volume 1.98 L/d 0.50-4.00 [facility] ([facility]) Source of Specimen: Urine This value shows an increased risk factor of 1, where 0 is normal and 7 is extremely high. 24 hr Oxalate 105 mg/d 20-40 [facility] ([facility]) Source of Specimen: Urine This value shows an increased risk factor of 5, where 0 is normal and 7 is extremely high. Supersaturation CaP 0.15 0.50-2.00 MEDEN T ([facility]) Source of Specimen: Urine Supersaturation Uric Acid 0.79 [facility] ([facility]) Source of Specimen: Urine Supersaturation CaOx 7.14 6.00-10.00 MEDE NT ([facility]) Source of Specimen: Urine This value shows an increased risk factor of 3, where 0 is normal and 7 is extremely high. ID Date Data Source [id number] 08/17/2019 10:53:00 AM EDT [facility] ([facility]) Name Value Range Interpretation Code Description Data Daphney rce(s) Supporting Document(s) Red Blood Count 4.43 4.00-5.40 [facility] ([facility]) Platelets 155 172-450 [facility] (Cardiology [facility]) White Blood Count 8.2 5.0-10.0 [facility] ([facility]) Hematocrit 41.6 [facility] ([facility]) Hemoglobin 14.0 [facility] ([facility]) ID Date Data Source [id number] 08/17/2019 10:53:00 AM EDT [facility] ([facility]) Name Value Range Interpretation Code Description Data Daphney rce(s) Supporting Document(s) Calcium [Mass/volume] in Serum or Plasma 7.9 [facility] ([facility]) Potassium [Moles/volume] in Serum or Plasma 3.9 [facility] ([facility]) Chloride [Moles/volume] in Serum or Plasma 111 [facility] ([facility]) Sodium 142 [facility] ([facility]iology [facility]) Carbon dioxide, total [Moles/volume] in Serum or Plasma 24 [facility] ([facility]) Glucose 125 83-110 [facility] ([facility]) Blood Urea Nitrogen 15 7-18 [facility] (Ca [facility]diology [facility]) Creatinine 1.08 0.6-1.0 [facility] ([facility]) Glomerular filtration rate/1.73 sq M.pre dicted [Volume Rate/Area] in Serum or Plasma by Creatinine-based formula (MDRD) Laboratory test result [facility] ([facility]) ID Date Data Source [id number] 08/16/2019 10:50:00 AM EDT [facility] ([facility]) Name Value Range Interpretation Code Description Data Daphney rce(s) Supporting Document(s) Triglycerides 154 [facility] ([facility]) HDL 28 [facility] ([facility]iology [facility]) Cholesterol in LDL [Mass/volume] in Serum or Plasma by calculation 32 [facility] ([facility]) Cholesterol 91 [facility] ([facility]) Chol/HDL Ratio 3.250 [facility] ([facility]) ID Date Data Source [id number] 08/16/2019 10:50:00 AM EDT [facility] ([facility]) Name Value Range Interpretation Code Description Data Daphney rce(s) Supporting Document(s) Albumin [Mass/volume] in Serum or Plasma 3.1 [facility] ([facility]) Carbon dioxide, total [Moles/volume] in Serum or Plasma 25 [facility] ([facility]) Calcium [Mass/volume] in Serum or Plasma 7.8 [facility] ([facility]) Alanine aminotransferase [Enzymatic activity/volume] in Serum or Pl asma 28 [facility] ([facility]) Chloride [Moles/volume] in Serum or Plasma 112 [facility] ([facility]) Potassium [Moles/volume] in Serum or Plasma 3.8 [facility] ([facility]) Alkaline phosphatase [Enzymatic activity/volume] in Serum or Plasma 7 6 [facility] ([facility]) Sodium 144 [facility] ([facility]) Protein [Mass/volume] in Serum or Plasma 6.6 [facility] ([facility] [place]) Aspartate aminotransferase [Enzymatic activity/volume] in Serum or Plasma 15 [facility] ([facility]) Urea nitrogen [Mass/volume] in Serum or Plasma 18 [facility] ([facility]) Glucose 139 83-110 [facility] Creatinine For GFR 1.07 [facility] (Car [facility]) ID Date Data Source [id number] 08/15/2019 10:47:00 AM EDT [facility] ([facility]) Name Value Range Interpretation Code Description Data Daphney rce(s) Supporting Document(s) White Blood Count 9.5 5.0-10.0 [facility] ([facility]) Platelets 174 172-450 [facility] Hematocrit 43.1 [facility] ([facility]) Red Blood Count 4.55 4.00-5.40 [facility] ([facility]) Hemoglobin 14.2 [facility] ([facility]) ID Date Data Source [id number] 08/15/2019 10:47:00 AM EDT [facility] ([facility]) Name Value Range Interpretation Code Description Data Daphney rce(s) Supporting Document(s) Magnesium Level 1.9 1.8-2.4 [facility] ([facility]) Troponin Laboratory test result [facility] ([facility]) ID Date Data Source [id number] 08/15/2019 10:47:00 AM EDT [facility] ([facility]) Name Value Range Interpretation Code Description Data Daphney rce(s) Supporting Document(s) Creatine kinase [Enzymatic activity/volume] in Serum or Plasma 88 [facility] ([facility]) MB/CK Relative 1.82 [facility] ([facility]) CPK-MB 1.6 [facility] ID Date Data Source [id number] 08/15/2019 10:47:00 AM EDT [facility] ([facility]) Name Value Range Interpretation Code Description Data Daphney rce(s) Supporting Document(s) Albumin [Mass/volume] in Serum or Plasma 3.6 [facility] ([facility]) Alanine aminotransferase [Enzymatic activity/volume] in Serum or Pl asma 30 [facility] ([facility]) Carbon dioxide, total [Moles/volume] in Serum or Plasma 26 [facility] ([facility]) Calcium [Mass/volume] in Serum or Plasma 8.1 [facility] ([facility]) Potassium [Moles/volume] in Serum or Plasma 4.6 [facility] ([facility]) Chloride [Moles/volume] in Serum or Plasma 110 [facility] ([facility]) Alkaline phosphatase [Enzymatic activity/volume] in Serum or Plasma 9 4 [facility] ([facility]) Protein [Mass/volume] in Serum or Plasma 7.0 [facility] ([facility]) Sodium 142 [facility] ([facility]) Urea nitrogen [Mass/volume] in Serum or Plasma 19 [facility] ([facility]) Aspartate aminotransferase [Enzymatic activity/volume] in Serum or Plasma 24 [facility] ([facility]) Creatinine For GFR 1.19 [facility] ([facility]) Glucose 108 83-110 [facility] ([facility]) ID Date Data Source [id number] 05/21/2019 01:44:00 PM EST [facility] ([facility] [place] Name Value Range Interpretation Code Description Data Daphney rce(s) Supporting Document(s) Bacteria identified in Urine by Culture Laboratory test result [facility] ([facility]) SPECIMEN DESCRIPTION MIDSTREAM UR INE,CLEAN CATCH CULTURE RESULTS MIXED UROGENITAL IRENE; PLEASE SUBMIT A NEW SPEC IMEN IF CLINICALLY INDICATED. REPORT STATUS FINAL 05/22/2019 ID Date Data Source [id number] 05/22/2019 01:13:17 PM EST Laboratory [place] [facility] SPECIMEN DESCRIPTION MIDSTREAM UR INE,CLEAN CATCHCULTURE RESULTS MIXED UROGENITAL IRENE; PLEASE SUBMIT A NEW SPEC IMEN IF CLINICALLY INDICATED.REPORT STATUS FINAL 05/22/2019 Name Value Range Interpretation Code Description Data Daphney rce(s) Supporting Document(s) ID Date Data Source [id number] 05/21/2019 01:03:00 PM EST [facility] ([facility] [place]) Name Value Range Interpretation Code Description Data Daphney rce(s) Supporting Document(s) Protein [Presence] in Urine by Test strip Laboratory test result [facility] ([facility]) Ua Nitrite Laboratory test result ME DENT ([facility]) Glucose [Presence] in Urine Laboratory test result [facility] ([facility]) Ua Leuko Laboratory test result ME DENT ([facility]) Blood [Presence] in Urine by Visual Laboratory test result [facility] ([facility]) Ketones [Presence] in Urine by Test strip Laboratory test result [facility] ([facility]) Color of Urine Laboratory test result [facility] ([facility]) Clarity of Urine Laboratory test result [facility] ([facility]) Ua Specific [place] 1.010 1.003-1.030 [facility] NT ([facility]) pH of Urine by Test strip 5.5 5.0-7.5 [facility] ([facility]) Bilirubin.total [Presence] in Urine by Test strip Laboratory test res ult [facility] ([facility]) Urobilinogen [Mass/volume] in Urine by Test strip 0.2 E.U./dL 0.0-1.0 [facility] ([facility]) ID Date Data Source [id number] 05/21/2019 12:08:00 PM EST [facility]EN KUBCLINICAL HISTORY: Calculus of kidney.COMPARISON: [...] rce(s) Supporting Document(s) ID Date Data Source [id number] 04/28/2019 07:54:00 AM EST [facility] ([facility]) Name Value Range Interpretation Code Description Data Daphney rce(s) Supporting Document(s) Prostate specific Ag [Mass/volume] in Serum or Plasma 0.5 ng/mL 0.0- 4.0 [facility] ([facility] [place]) [place] ECLIA methodology. According to the [place] [employer], Serum PSA should decrease and [...] of malignant disease. ID Date Data Source [id number] 04/29/2019 07:05:00 AM EST [facility] Name Value Range Interpretation Code Description Data Daphney rce(s) Supporting Document(s) Prostate Specific Ag, Serum 0.5 ng/mL 0.0-4.0 [facility] [place] ECLIA methodology. According to th e [place] [employer], Serum PSA shoulddecrease and remain at undetectable levels after radicalprostatectomy. The AUA defines biochemical recurrence as an initialPSA value 0.2 ng/mL or greater followed by a subsequent confirmatoryPSA value 0.2 ng/mL or greater.Values obtained with different assay methods or kits cannot be usedinterchangeably. Results cannot be interpreted as absolute evidenceof the presence or absence of malignant disease. ID Date Data Source [id number] 04/21/2019 12:00:00 PM EST [facility] ([facility]) Name Value Range Interpretation Code Description Data Daphney rce(s) Supporting Document(s) Laboratory test finding (navigational concept) Laboratory test result [facility] ([facility]) ID Date Data Source [id number] 04/21/2019 12:00:00 PM EST [facility] ([facility]) Name Value Range Interpretation Code Description Data [facility] rce(s) Supporting Document(s) 24 hr Creatinine 1731 mg/d [facility] ( [facility]) Source of Specimen: Urine 24 hr Calcium per Kilogram Body Weight 0.5 mg/d/kg [facility] ([facility]) Source of Specimen: Urine 24 hr Creatinine per Kilogram Body Weight 14.2 mg/d/kg 11.9-24.4 [facility] ([facility]) Source of Specimen: Urine 24 hr Calcium per 24 hr Creatinine 36 mg/g 34-196 [facility] ([facility]) Source of Specimen: Urine ID Date Data Source [id number] 04/21/2019 12:00:00 PM EST [facility] Name Value Range Interpretation Code Description [facility] Supporting Document(s) 24 hr Chloride 244 mmol/d 70-250 [facility] ([facility]) Source of Specimen: Urine This value shows an increased risk factor of 2, where 0 is normal and 7 is extremely high. 24 hr Sulfate 42 mEq/d 20-80 [facility] ([facility]) Source of Specimen: Urine 24 hr Ammonium 75 mmol/d 15-60 [facility] ([facility]) Source of Specimen: Urine 24 hr Potassium 71 mmol/d 20-100 [facility] ([facility]) Source of Specimen: Urine 24 hr Phosphorus 1.728 g/d 0.60-1.20 [facility] ( [facility]) Source of Specimen: Urine This value shows an increased risk factor of 3, where 0 is normal and 7 is extremely high. 24 hr Sodium 245 mmol/d 50-150 [facility] ([facility]) Source of Specimen: Urine This value shows an increased risk factor of 2, where 0 is normal and 7 is extremely high. 24 hr Magnesium 168 mg/d 30-120 [facility] ([facility]) Source of Specimen: Urine 24 hr Urea Nitrogen 16.50 g/d 6.00-14.00 MEDEN T ([facility]) Source of Specimen: Urine This value shows an increased risk factor of 1, where 0 is normal and 7 is extremely high. Protein Catabolic Rate 1.0 g/kg/d 0.8-1.4 ME JAVED ([facility] [place]) Source of Specimen: Urine ID Date Data Source [id number] 04/21/2019 12:00:00 PM EST ANNAMARIENATALY ([facility]) Name Value Range Interpretation Code Description Data Daphney rce(s) Supporting Document(s) Interpretations Collection A Laboratory test result ALFRED ([facility] [place]) Source of Specimen: Urine Training And Development Officer's Note: At least one urine analyte was [...] = 42 meq/d). ID Date Data Source [id number] 04/21/2019 12:00:00 PM EST [facility] ([facility] [place]) Name Value Range Interpretation Code Description Data Daphney rce(s) Supporting Document(s) 24 hr Oxalate 168 mg/d 20-40 [facility] ([facility] [place]) Source of Specimen: Urine This value shows an increased risk factor of 5, where 0 is normal and 7 is extremely high. 24 hr Uric Acid 0.345 g/d [facility] ([facility]) Source of Specimen: Urine pH 5.508 5.800-6.200 [facility] ([facility] [place]) Source of Specimen: Urine This value shows an increased risk factor of 3, where 0 is normal and 7 is extremely high. 24 hr Calcium 62 mg/d [facility] ([facility]) Source of Specimen: Urine 24 hr Citrate Laboratory test result [facility] ([facility]) Source of Specimen: Urine This value shows an increased risk factor of 5, where 0 is normal and 7 is extremely high. Supersaturation CaOx 4.50 6.00-10.00 [facility] ([facility] [place]) Source of Specimen: Urine Urine Volume 3.03 L/d 0.50-4.00 [facility] ([facility]) Source of Specimen: Urine Supersaturation CaP 0.08 0.50-2.00 MED[facility] T ([facility]) Source of Specimen: Urine Supersaturation Uric Acid 0.52 [facility] ([facility]) Source of Specimen: Urine Procedure Social History Code Duration Value Status Description Data Source(s ) Smoking 03/02/2020 12:00:00 AM EST Former Cigarette Smoker com pleted Former Cigarette Smoker [facility] ([facility]) Alcohol intake 02/25/2020 12:00:00 AM EST No completed [facility] Cigarette pack-years 02/25/2020 12:00:00 AM EST UNK completed [facility] Cigarettes smoked current (pack per day) - Reported 02/25/20 20 12:00:00 AM EST UNK completed [facility] Smoking 02/25/2020 12:00:00 AM EST Former smoker completed Former smoker [facility] Smoking 01/22/2020 05:47:00 PM EDT Former Smoker completed Former Smoker [facility] Smoking 01/20/2020 02:06:00 PM EDT Former Smoker completed Former Smoker [facility] Smoking 09/02/2019 12:00:00 AM EDT Patient is a former smoker completed Patient is a former smoker [facility] ([facility]) Vital Signs ID Date Data Source UNK Name Value Range Interpretation Code Description Data Source(s) Body mass index (BMI) [Ratio] 44.7 kg/m2 44.7 k g/m2 [facility] ([facility]) Body height 68 [in_i] 68 [in_i] [facility]) 5'8" Body weight 294.00 [lb_av] 294.00 [lb_av] [facility] ([facility]) Oxygen saturation in Arterial blood by Pulse oximetry 98 % 98 % [facility] Respiratory rate 16 /min 16 /min [facility] Heart rate 78 /min 78 /min [facility] Diastolic blood pressure 70 mm[Hg] 70 mm[Hg] [facility] Systolic blood pressure 128 mm[Hg] 128 mm[Hg] [facility] Body temperature 98.1 [degF] 98.1 [degF] [facility] ([facility]) Body temperature 36.72 Aydee 36.72 Aydee [facility] Body mass index (BMI) [Ratio] 43.79 kg/m2 43.79 kg/m2 [facility] ([facility] Body weight 130.636 kg 130.636 kg [facility] Body weight 288.00 [lb_av] 288.00 [lb_av] [facility] ([facility] Body height 67.99 [in_i] 67.99 [in_i] [facility] 5'7.99" Body mass index (BMI) [Ratio] 43.79 kg/m2 43.79 kg/m2 [facility] Body weight 130.636 kg 130.636 kg [facility] Body height 172.7 cm 172.7 cm [facility] Heart rate 68 /min 68 /min [facility] ([facility] Diastolic blood pressure 85 mm[Hg] 85 mm[Hg] [facility] ([facility] Systolic blood pressure 115 mm[Hg] 115 mm[Hg] [facility] ([facility] Body mass index (BMI) [Ratio] 45.3 kg/m2 45.3 k g/m2 [facility] ([facility] Body weight 135.173 kg 135.173 kg [facility] Body weight 298.00 [lb_av] 298.00 [lb_av] [facility] ([facility] Body height 68 [in_i] 68 [in_i] [facility] 5'8" Body temperature 36.5 aydee Normal (applies to non-numeric results) 36.5 aydee [facility] Respiratory rate 19 min Normal (applies to non-numeric results) 19 min [facility] Heart rate 63 min Normal (applies to non-numeric resul ts) 63 min [facility] Diastolic blood pressure 80 mm[Hg] Normal (applies to non-numeric results) 80 mm[Hg] [facility] Systolic blood pressure 156 mm[Hg] Normal (applies t o non-numeric results) 156 mm[Hg] [facility] Deprecated Oxygen saturation in Capillary blood by Oximetry 96 % Normal (applies to non-numeric results) 96 % [facility] Body weight Measured 134.717 kg Normal (applies to n on-numeric results) 134.717 kg [facility] Body height 171.9072 cm Normal (applies to non-numeric res ults) 171.9072 cm [facility] Body mass index (BMI) [Ratio] 45.16 kg/m2 No rmal (applies to non-numeric results) 45.16 kg/m2 [facility] Body temperature 36.8 aydee Normal (applies to non-numeric results) 36.8 aydee [facility] Respiratory rate 20 min Normal (applies to non-numeric results) 20 min [facility] Heart rate 73 min Normal (applies to non-numeric resul ts) 73 min [facility] Diastolic blood pressure 72 mm[Hg] Normal (applies to non-numeric results) 72 mm[Hg] [facility] Systolic blood pressure 116 mm[Hg] Normal (applies t o non-numeric results) 116 mm[Hg] [facility] Body weight Measured 118.4 kg Normal (applies to n on-numeric results) 118.4 kg [facility] Body height 171.9072 cm Normal (applies to non-numeric res ults) 171.9072 cm [facility] Deprecated Oxygen saturation in Capillary blood by Oximetry 97 % Normal (applies to non-numeric results) 97 % [facility] Body temperature 97.0 [degF] 97.0 [degF] [facility] ([facility]) Heart rate 73 /min 73 /min [facility] Diastolic blood pressure 84 mm[Hg] 84 mm[Hg] [facility] ([facility]) Systolic blood pressure 133 mm[Hg] 133 mm[Hg] [facility] ([facility]) Body mass index (BMI) [Ratio] 45.3 kg/m2 45.3 k g/m2 [facility] ([facility] Body weight 135.173 kg 135.173 kg [facility] Body weight 298.00 [lb_av] 298.00 [lb_av] [facility] ([facility]) Body height 68 [in_i] 68 [in_i] [facility] 5'8" Diastolic blood pressure--sitting 68 mm[Hg] 68 mm[Hg] [facility] ([facility]) large cuff, Ra Systolic blood pressure--sitting 122 mm[Hg] 122 mm[Hg] [facility] ([facility]) large cuff, Ra Heart rate 65 /min 65 /min [facility] Body mass index (BMI) [Ratio] 44.8 kg/m2 44.8 k g/m2 [facility] ([facility]) Body height 68 [in_i] 68 [in_i] [facility] 5'8" Body weight 295.00 [lb_av] 295.00 [lb_av] [facility] ([facility])
--- NOTE | 2020-04-21 21:01 | HPEPDOC ---
[facility] Medical History & Physical Date of Admission Apr 21, 2020 Date of Service: Apr 21, 2020 Primary Care Physician: REMBERTO MARTI MD [facility] Attending Physician: BERTRAND SHANNON MD History and Physical TIME OF SERVICE: 846pm CHIEF COMPLAINT: dyspnea HISTORY OF PRESENT ILLNESS: This 64 yr old M was diagnosed w COVID 19 on Apr 13; today he presented w c/o dyspnea that is so severe that he has difficulties walking and talking. His fever wont break, he feels weak, has a poor appetite and cough productive of yellow sputum. His also has COVID. REVIEW OF SYSTEMS: 12-point review of systems negative except as listed in HPI PAST MEDICAL/ SURGICAL HISTORY: TIA March 2016 Carotid artery disease / bilateral proximal ICA stenosis less than 50% HFpEF (grade 2) / Mild Pulm HTN Radiculopathy, chronic Gout Insomnia CAD s/p CABG 11/26/2015 Depression / Anxiety HTN GERD Chronic back pain Occasional yeast infections in abdominal pannus Erectile dysfunction Hx of diabetes mellitus, resolved after bariatric surgery 10/2016 Recurrent kidney stones s/p Lithotripsy Hernia repair x 15 surgeries Pericardial window SOCIAL HISTORY: Prior smoker, for 12-15 years, >2 PPD. Quit 1984 FAMILY HISTORY: Father: DM type II, CAD. at 71 y/o. Mother: ESRD on HD, DM type II, CAD, HTN, arthritis. at 63 y/o Siblings: Brother- multiple sclerosis. at 29. ALLERGIES: Please see below. HOME MEDICATIONS: Please see below. PHYSICAL EXAMINATION: VITAL SIGNS: Please see below. GENERAL APPEARANCE: well nourished/ well developed/ anxious /sitting up in hospital bed HEENT: NC in place CARDIOVASCULAR: tachycardic/ NMRG LUNGS: CTAB/ coughing ABDOMEN: obese MUSCULOSKELETAL: NCAT/ RAMIREZ x 4 NEUROLOGICAL:CN 2-12 grossly intact / speech not dysarthric PSYCHIATRIC: A&Ox 3 /able to understand and follow commands LABORATORY DATA: blood cx pending IMAGING: Chest xray IMPRESSION: New left retrocardiac opacities pneumonia versus subsegmental atelectatic change. Consider PA and lateral views of the chest. MICROBIOLOGY: ASSESSMENT: is a 64 y/o w a hx of TIA HFpEF HTN CAD Depression & Anxiety who presented w c/o dyspnea and will be admitted for Sepsis 2/2 COVID 19 PNA and JYOTI. PLAN: 1. Sepsis 2/2 COVID19 PNA Plan: admit to PCU / continuous pulse ox / supplemental O2 up to 3L with target O2 sats between 92-95% / contact & air borne precautions / f/u repeat plts (if low indicates bad prognosis), CRP (if high indicates bad prognosis), INR, BMP, fibrinogen, INR, D-dimer, PT, PTT (if patient has DIC indicates bad prognosis), ferritin, LDH, procalcitonin (if elevated will help rule out bacterial PNA), troponins / will start abx for CAP pending procalcitonin, sputum cx, strep pneumo, legionella & mycoplasma, MRSA to r/o bacterial PNA /if trops become elevated he will need an Echo to r/o cardiomyopathy /since d-dimer is elevated will lovenox & ASA / since he is hypoxemic we will start dexamethasone/ he is not a candidate for redesivir 2. JYOTI Plan: monitor UOP / IVF / f/u renal panel, CK, Ulytes for FENa or FEUrea / renal US / hold nephrotoxic drugs (allopurinol and omeprazole) 3. HFpEF (grade 2) / Mild Pulm HTN Plan: Metoprolol 4. Radiculopathy Plan; Metoprolol 5.CAD s/p CABG 11/26/2015 Plan: ASA,statin and metoprolol 6. Depression / Anxiety Plan: Duloxetine 7. Gout Plan: if he has a flair day time team can consider prednisone 8.Obesity BMI 43.1 complicates care DVT Px ASA& Lovenox Dispo: home after more than 2 midnights stay Vital Signs Vital Signs Date Time Temp Pulse Resp B/P (MAP) Pulse Ox O2 Delivery O2 Flow Rate FiO2 04/21/20 20:25 89 94 04/21/20 20:15 97.7 21 124/62 (82) Nasal Cannula 2.0 Laboratory Data Labs 24H Laboratory Tests 2 04/21/20 16:31: Immature Granulocyte % (Auto) 3.1H, Neutrophils (%) (Auto) 75.9H, Lymphocytes (%) (Auto) 13.6L, Monocytes (%) (Auto) 6.4H, Eosinophils (%) (Auto) 0.6, Basophils (%) (Auto) 0.4, Neutrophils # (Auto) 7.6, Lymphocytes # (Auto) 1.4L, M onocytes # (Auto) 0.6, Eosinophils # (Auto) 0.1, Basophils # (Auto) 0.0, Nucleated Red Blood Cells % (auto) 0.0, Prothrombin Time 14.6H, Prothromb Time International Ratio 1.12, Activated Partial Thromboplast Time 31.3, Fibrinogen 875H, D-Dimer, Quantitative 1772.36H, Anion Gap 9, Glomerular Filtration Rate 45.2L, Lactic Acid Level 3.6*H, Calcium Level 8.4L, Magnesium Level 1.9, Ferritin 654H, Total Bilirubin 0.7, Aspartate Amino Transf (AST/SGOT) 54H, Alanine Aminotransferase (ALT/SGPT) 25, Alkaline Phosphatase 63, Lactate Dehydrogenase 413H, Total Creatine Kinase 161, Creatine Kinase MB 1.1, Creatine Kinase MB Relative Index 0.68, Troponin I < 0.02, C-Reactive Protein, Quantitative 13.90H, Total Protein 6.7, Albumin 2.8L, Albumin/Globulin Ratio 0.7, Procalcitonin 0.15 CBC/BMP Laboratory Tests 04/21/20 16:31 Microbiology Microbiology 04/21/20 Blood Culture, Received Pending Home Medications Scheduled Allopurinol (Allopurinol) 100 Mg Tablet, 100 MG PO DAILY Aspirin (Aspirin EC) 81 Mg Tab, 81 MG PO DAILY Atorvastatin Calcium (Atorvastatin Calcium) 80 Mg Tablet, 80 MG PO QHS Calcium Citrate/Vitamin D3 (Citracal + D Maximum Caplet) 1 Tab Tab, 3 TAB PO BID Cyanocobalamin (Vitamin B-12) (Vitamin B-12) 1,000 Mcg Tab, 1,000 MCG PO DAILY Dexamethasone (Dexamethasone) 2 Mg Tablet, 2 MG PO DAILY STARTED 04/24/20 X 3 DAYS Dexamethasone (Dexamethasone) 2 Mg Tablet, 1 TAB PO DAILY Docusate Sodium (Dok) 100 Mg Capsule, 100 MG PO BID Duloxetine Hcl (Duloxetine HCl) 60 Mg Cap, 60 MG PO DAILY Glucosamine Sulfate Dipot Chlr (Glucosamine) 1,000 Mg Tablet, 1,000 MG PO BID Metoprolol Tartrate (Metoprolol Tartrate) 25 Mg Tablet, 25 MG PO BID Omeprazole (Omeprazole) 40 Mg Cap, 40 MG PO DAILY Pregabalin (Lyrica) 150 Mg Capsule, 150 MG PO BID Tamsulosin HCl (Flomax) 0.4 Mg Capsule, 0.4 MG PO QHS Ubidecarenone/Vit E Acet (Co Q-10 100 mg Softgel) 100 Mg Cap, 100 MG PO BID Scheduled PRN Ipratropium/Albuterol Sulfate (Combivent Respimat 20-100 Mcg) 4 Gm Mist.inhal, 1 PUFF INH QIDP PRN for DYSPNEA Nitroglycerin (Nitrostat) 0.4 Mg Tab.subl, 0.4 MG SL NITRO PRN for CHEST PAIN Nystatin (Nystatin Powder) 15 Gm Powder, 1 APLCT TOP DAILY PRN for RASH/ITCHING APPLY TO GROIN AREA Ondansetron HCl (Ondansetron HCl) 4 Mg Tablet, 4 MG PO Q6H PRN for NAUSEA Sildenafil Citrate (Viagra) 100 Mg Tablet, 100 MG PO DAILYPRN PRN for erectile dysfunction 1 hour before sexual activity Allergies Coded Allergies: Penicillins (Verified Allergy, Intermediate, rash, 04/21/20) naproxen (Verified Adverse Reaction, Intermediate, Gastric bypass, 04/21/20) ibuprofen (Verified Adverse Reaction, Unknown, gastric bypass, 04/21/20) A-FIB/CHADSVASC A-FIB History Current/History of A-Fib/PAF?: No Current PO Anticoag Therapy: No BERTRAND SHANNON MD Apr 21, 2020 21:01
[2020-04-21] MEDS: DOXYCYCLINE HYCLATE 100 MG in D5W MINI-BAG PLUS 100 ML IV SCH (21:25)
[2020-04-21 22:07] LABS: URIC ACID 4.4 MG/DL (3.5-7.2)
[2020-04-21] MEDS ORDERED: VANCOMYCIN HCL 1,000 MG, VIAL MATE ADAPTER 1 EACH in D5W 250 ML IV ONE (23:00)
[2020-04-21] MEDS ORDERED: NYSTATIN 100,000 UNITS/GM TOPICAL PWD 15 GM TOP PRN (23:00)
[2020-04-21] MEDS ORDERED: NITROGLYCERIN 0.4 MG SUBL TABLET SL PRN (23:00)
[2020-04-21] MEDS ORDERED: ONDANSETRON 4 MG TAB PO PRN (23:00)
[2020-04-22] VITALS (22 sets, daily range): BP systolic 107–132; BP diastolic 59–80; O2SAT 89–96
[2020-04-22] MEDS ORDERED: VIAG100T PO (00:48)
[2020-04-22] MEDS: ENOXAPARIN 80MG/0.8ML SYRINGE (J1650 PER 10MG) SC SCH ×3 (00:49→20:34)
[2020-04-22] MEDS ORDERED: AMIT25TA17 PO (00:49)
[2020-04-22] MEDS: TAMSULOSIN 0.4 MG CAP PO SCH ×2 (00:51→20:39)
[2020-04-22] MEDS: PREGABALIN 75 MG CAP(LYRICA) PO SCH ×3 (00:51→20:39)
[2020-04-22] MEDS: DOCUSATE SODIUM 100MG CAPSULE PO SCH ×3 (00:51→20:40)
[2020-04-22] MEDS: METOPROLOL TART 25 MG TABLET PO SCH ×3 (00:52→20:40)
[2020-04-22] MEDS: ATORVASTATIN 20 MG TAB PO SCH ×2 (01:13→20:39)
[2020-04-22] MEDS ORDERED: GLUCOSE 4GM CHEW TABLET PO PRN (02:45)
[2020-04-22] MEDS ORDERED: DEXTROSE 50% 50 ML SYRINGE IV PRN (02:45)
[2020-04-22] MEDS ORDERED: GLUCAGON INJ 1MG VIAL SC PRN (02:45)
[2020-04-22] MEDS: HumaLOG INSULIN (NovoLOG) PER UNIT SC SCH ×4 (03:02→17:29)
--- NOTE | 2020-04-22 05:29 | REP ---
INDICATION: JYOTI COMPARISON: None TECHNIQUE: Real time peters scale ultrasound examination using curved array transducer. FINDINGS: Kidneys demonstrate increased parenchymal echotexture and increased central sinus fat consistent with chronic renal disease. No hydronephrosis, nephrolithiasis, cystic or renal mass lesion. Right kidney measures 10.2 x 5.1 x 5.7 cm. Left kidney measures 11.0 x 5.1 x 5.5 cm. Bladder is collapsed. IMPRESSION: Chronic medical renal disease. No hydronephrosis. <Electronically signed by Willie Moore > 04/22/20 [id number]
[2020-04-22 06:18] LABS: HEMATOCRIT 40.6 % (42.0-52.0); HEMOGLOBIN 12.9 g/dl (13.5-17.5); MEAN CORPUSCULAR HEMOGLOBIN 30.3 pg (27.0-33.0); MEAN CORPUSCULAR HGB CONC 31.8 g/dl (32.0-36.5); MEAN CORPUSCULAR VOLUME 95.3 fl (80.0-96.0); PLATELET COUNT, AUTOMATED 218 10^3/uL (150-450); RED BLOOD COUNT 4.26 10^6/uL (4.30-6.10); WHITE BLOOD COUNT 7.5 10^3/uL (4.0-10.0)
[2020-04-22 06:42] LABS: ALBUMIN 2.9 GM/DL (3.2-5.2); BILIRUBIN,TOTAL 0.5 MG/DL (0.2-1.0); CALCIUM LEVEL 8.5 MG/DL (8.8-10.2); CREATININE FOR GFR 1.72 MG/DL (0.70-1.30); GLOMERULAR FILTRATION RATE 43.1 (>49); MAGNESIUM LEVEL 2.1 MG/DL (1.8-2.4); POTASSIUM SERUM 4.4 MEQ/L (3.5-5.1); TOTAL PROTEIN 6.8 GM/DL (6.4-8.2)
[2020-04-22] MEDS ORDERED: VANCOMYCIN HCL 1,000 MG, VIAL MATE ADAPTER 1 EACH in D5W 250 ML IV SCH (08:00)
[2020-04-22 08:44] LABS: POTASSIUM RANDOM URINE 48.2 MEQ/L; SODIUM,RANDOM URINE < 10 MEQ/L; TOTAL PROTEIN,RANDOM URINE 157.7 MG/DL (0.0-12.0)
[2020-04-22] MEDS: dexameTHASONE 4 MG/ML 1ML VIAL (J1100 PER 1MG) IV SCH (08:48)
[2020-04-22] MEDS: DULoxetine 30 MG CAP (CYMBALTA) PO SCH (08:48)
[2020-04-22] MEDS: CYANOCOBALAMIN 500 MCG TAB PO SCH (08:48)
[2020-04-22] MEDS: ASPIRIN 81 MG ENTERIC TAB PO SCH (08:48)
[2020-04-22 09:00] LABS: OSMOLALITY URINE 673 MOSM/KG (500-800)
[2020-04-22] MEDS: DOXYCYCLINE HYCLATE 100 MG in D5W MINI-BAG PLUS 100 ML IV SCH ×2 (11:24→20:35)
--- NOTE | 2020-04-22 20:16 | IPNPDOC ---
Text Note Date of Service The patient was seen on 04/22/20. NOTE Subjective: No acute events overnight. Patient was diagnosed with Covid on 04/13 and has a roughly 9-10 day history of symptoms including cough and shortness of breath. He presented to the emergency department last night he has of his shortness of breath and recurrent fevers. Patient states he slept well on 2-3 L nasal cannula. Objective: General: Pleasant appearing male sitting upright in bed next to his eaten breakfast in no acute distress. HEENT: NC, AT. EOMI, no scleral icterus. No pharyngeal erythema, mucous membranes moist. Neck: No lymphadenopathy or JVD CV: RRR, Normal S1 and S2. No murmurs, gallops, or rubs. Resp: Clear but reduced breath sounds bilaterally. No wheezes, crackles, or rhonchi. No dullness to percussion. Abdomen: Bowel sounds present. Soft, NT, ND. Extremities: No swelling or edema. Psychiatric: Normal mood and affect. Assessment/Plan: #. Acute hypoxic respiratory failure secondary to Covid 19 pneumonia -Continuing IV dexamethasone (day 2) -Discontinuing vancomycin, continue Rocephin, doxycycline. We'll await results of pro-calcitonin though chest x-ray is not showing acute infiltrate and actually looks pretty good. -Perform weaning trial today as patient is doing quite well on relatively low levels of oxygen supplementation. #. Type B lactic acidosis This is an oxygenation issue secondary to Covid will discontinue IV fluids. -Continue with supportive care. #. Acute renal failure -Poor oral intake likely of pre-renal etiology we'll avoid nephrotoxic agents. #. HFpEF #. CAD status post CABG 11/2015 -Continue aspirin, statin, metoprolol #. Depression/anxiety -Continue duloxetine #. Obesity -Complicating getting care DVT prophylaxis: Aspirin and Lovenox Disposition: Possibly tomorrow morning, pending clinical improvement Alycia ESPINOSA, I+O VSAlycia, I+O Laboratory Tests 04/22/20 06:08 Vital Signs Date Time Temp Pulse Resp B/P (MAP) Pulse Ox O2 Delivery O2 Flow Rate FiO2 04/22/20 18:00 90 Nasal Cannula 3.0 04/22/20 16:00 96.7 65 18 130/79 (96) I&O- Last 24 Hours up to 6 AM 04/22/20 06:00 Intake Total 750 ml Output Total 0 ml Balance 750 ml GME ATTESTATION GME ATTESTATION My faculty preceptor for this patient encounter was physically present during the encounter and was fully available. All aspects of the patient interview, examination, medical decision making process, and medical care plan development were reviewed and approved by the faculty preceptor. The faculty preceptor is aware and concurs with the plan as stated in the body of this note and will at test to such by his/her cosignature. MIR CRAVEN DO Apr 22, 2020 20:16
[2020-04-22] MEDS: cefTRIAXone SOD 1 GM in D5W MINI-BAG PLUS 50 ML IV SCH (20:35)
[2020-04-22] MEDS ORDERED: LEVEMIR (INSULIN DETEMIR) 1 UNITS/0.01ML SC SCH (21:00)
[2020-04-23] VITALS: O2SAT 92
[2020-04-23] MEDS: HumaLOG INSULIN (NovoLOG) PER UNIT SC SCH ×3 (00:16→13:13)
[2020-04-23 04:00] VITALS: O2SAT 91
[2020-04-23 04:14] VITALS: BP 112/66
[2020-04-23 08:00] VITALS: O2SAT 92
[2020-04-23 08:23] LABS: BASO % 0.2 % (0.0-1.0); LYMPH # 1.4 10^3/uL (1.5-5.0); LYMPH % 8.4 % (24.0-44.0); MEAN CORPUSCULAR HEMOGLOBIN 30.3 pg (27.0-33.0); MEAN CORPUSCULAR HGB CONC 32.5 g/dl (32.0-36.5); MEAN CORPUSCULAR VOLUME 93.2 fl (80.0-96.0); MONO # 0.7 10^3/uL (0.0-0.8); MONO % 4.5 % (0.0-5.0); NEUTROPHILS # 13.5 10^3/uL (1.5-8.5); NEUTROPHILS % 82.6 % (36.0-66.0); PLATELET COUNT, AUTOMATED 295 10^3/uL (150-450); RED BLOOD COUNT 4.29 10^6/uL (4.30-6.10); WHITE BLOOD COUNT 16.3 10^3/uL (4.0-10.0)
[2020-04-23 08:43] LABS: ALBUMIN 2.8 GM/DL (3.2-5.2); BILIRUBIN,TOTAL 0.4 MG/DL (0.2-1.0); CALCIUM LEVEL 8.8 MG/DL (8.8-10.2); CREATININE FOR GFR 1.62 MG/DL (0.70-1.30); GLOMERULAR FILTRATION RATE 46.2 (>49); POTASSIUM SERUM 4.1 MEQ/L (3.5-5.1); TOTAL PROTEIN 6.7 GM/DL (6.4-8.2)
[2020-04-23 08:49] VITALS: BP 109/68
[2020-04-23] MEDS: DOCUSATE SODIUM 100MG CAPSULE PO SCH (08:51)
[2020-04-23] MEDS: ASPIRIN 81 MG ENTERIC TAB PO SCH (08:51)
[2020-04-23] MEDS: CYANOCOBALAMIN 500 MCG TAB PO SCH (08:51)
[2020-04-23] MEDS: PREGABALIN 75 MG CAP(LYRICA) PO SCH (08:51)
[2020-04-23] MEDS: DOXYCYCLINE HYCLATE 100 MG in D5W MINI-BAG PLUS 100 ML IV SCH (08:52)
[2020-04-23] MEDS: DULoxetine 30 MG CAP (CYMBALTA) PO SCH (08:52)
[2020-04-23] MEDS: ENOXAPARIN 80MG/0.8ML SYRINGE (J1650 PER 10MG) SC SCH (08:52)
[2020-04-23] MEDS: METOPROLOL TART 25 MG TABLET PO SCH (09:00)
[2020-04-23] MEDS: dexameTHASONE 4 MG/ML 1ML VIAL (J1100 PER 1MG) IV SCH (10:43)
[2020-04-23] MEDS ORDERED: ALLO100T PO (11:52)
[2020-04-23] MEDS ORDERED: ZINC220CA PO (11:52)
[2020-04-23] MEDS ORDERED: COMBAER6 INH (11:52)
[2020-04-23] MEDS ORDERED: DEXA2TA PO (11:52)
[2020-04-23] MEDS ORDERED: VITA250T4 PO (11:52)
[2020-04-23 12:00] VITALS: O2SAT 94
[2020-04-23 18:07] LABS: MYCOPLASMA PNEUMONIAE IgG 752 U/mL (0-99); MYCOPLASMA PNEUMONIAE IgM <770 U/mL (0-769)
--- NOTE | 2020-04-23 19:41 | DS.PDOC ---
Discharge Summary General Date of Admission Apr 21, 2020 at 19:39 Date of Discharge 04/23/2020 Primary Care Physician: REMBERTO MARTI MD [facility] Attending Physician: URIEL COFFMAN MD Discharge Summary PROCEDURES PERFORMED DURING STAY: None. ADMITTING/DISCHARGE DIAGNOSES: Acute hypoxic respiratory failure secondary to Covid pneumonia Acute renal failure Heart failure preserved ejection fraction CAD status post CABG Depression/anxiety Obesity COMPLICATIONS/CHIEF COMPLAINT: Covid-19, sepsis. HISTORY OF PRESENT ILLNESS: This 64 yr old M was diagnosed w COVID 19 on Apr 13 and presented with complaints of dyspnea that is so severe that he has difficulties walking and talking. His fever wont break, he feels weak, has a poor appetite and cough productive of yellow sputum. His also has COVID. HOSPITAL COURSE: Patient was started on antibiotics and dexamethasone with supplemental oxygen of 2-3 liters overnight. He did well during the day time and was kept overnight to wean his oxygen and ensure his creatinine was improving with oral rehydration. On day 2 his procalcitonin was 0.15 so all antibiotics were discontinued and a 6 minute walk test was performed that qualified him for home oxygen with exertion as he satted well at rest. He was discharged home with instructions to follow up with his PCP for a repeat BMP as the patients creatinine had improved but he still had a mild JYOTI which was stable and their was no further need for hospitalization as the maximum benefit had been obtained. His allopurinol dose was also decreased for same. He was discharged home on combivent, dexamethasone, vitamin c, and zinc. Patient was also discharged with home health and home oxygen. DISCHARGE MEDICATIONS: Please see below. ALLERGIES: Please see below. PHYSICAL EXAMINATION ON DISCHARGE: VITAL SIGNS: Please see below. General: Pleasant appearing male sitting upright in bed next to his eaten breakfast in no acute distress. HEENT: NC, AT. EOMI, no scleral icterus. No pharyngeal erythema, mucous membranes moist. Neck: No lymphadenopathy or JVD CV: RRR, Normal S1 and S2. No murmurs, gallops, or rubs. Resp: Clear but reduced breath sounds bilaterally. No wheezes, crackles, or rhonchi. No dullness to percussion. Abdomen: Bowel sounds present. Soft, NT, ND. Extremities: No swelling or edema. Psychiatric: Normal mood and affect. LABORATORY DATA: Please see below. IMAGIN04/23/2020: Chest xray IMPRESSION: New left retrocardiac opacities pneumonia versus subsegmental atelectatic change. Consider PA and lateral views of the chest. CURRENT PROGNOSIS: Fair ACTIVITY: As tolerated DIET: As tolerated DISCHARGE PLAN: Home DISCHARGE INSTRUCTIONS: 1. Patient needs to follow up next Sunday or Sunday for repeat BMP. 2. Encouraged adequate oral fluid hydration 3. Please return to hospital if symptoms worsen ITEMS TO FOLLOWUP ON ON OUTPATIENT: 1. Please follow up BMP sunday or Sunday for JYOTI DISCHARGE CONDITION: Stable. TIME SPENT ON DISCHARGE: 33 minutes. Vital Signs/I&Os Vital Signs Date Time Temp Pulse Resp B/P (MAP) Pulse Ox O2 Delivery O2 Flow Rate FiO2 04/23/20 12:00 2.0 04/23/20 12:00 94 Nasal Cannula 04/23/20 08:49 96.7 70 18 109/68 (82) l I&O- Last 24 Hours up to 6 AM 04/23/20 05:59 Intake Total 3825 ml Output Total 1205 ml Balance 2620 ml Laboratory Data Labs 24H Laboratory Tests 2 04/22/20 19:54: Bedside Glucose (Misc Panel) 438H 04/22/20 23:38: Bedside Glucose (Misc Panel) 287H 04/23/20 06:04: Bedside Glucose (Misc Panel) 236H 04/23/20 08:06: Immature Granulocyte % (Auto) 4.3H, Neutrophils (%) (Auto) 82.6H, Lymphocytes (%) (Auto) 8.4L, Monocytes (%) (Auto) 4.5, Eosinophils (%) (Auto) 0.0, Basophils (%) (Auto) 0.2, Neutrophils # (Auto) 13.5H, Lymphocytes # (Auto) 1.4L, Monocytes # (Auto) 0.7, Eosinophils # (Auto) 0.0, Basophils # (Auto) 0.0, Nucleated Red Blood Cells % (auto) 0.0, Anion Gap 10, Glomerular Filtration Rate 46.2L, Calcium Level 8.8, Total Bilirubin 0.4, Aspartate Amino Transf (AST/SGOT) 36, Alanine Aminotransferase (ALT/SGPT) 34, Alkaline Phosphatase 65, Total Protein 6.7, Albumin 2.8L, Albumin/Globulin Ratio 0.7 CBC/BMP Laboratory Tests 04/23/20 08:06 FSBS Laboratory Tests Test 04/22/20 19:54 04/22/20 23:38 04/23/20 06:04 Range/Units Bedside Glucose (Misc Panel) 438 287 236 80-115 MG/DL Microbiology Microbiology 04/21/20 Blood Culture - Preliminary, Resulted No growth after 24 hours . All specim... 04/21/20 Blood Culture - Preliminary, Resulted No growth after 24 hours . All specim... 04/21/20 Blood Culture - Preliminary, Resulted No Growth after 48 hours. All Specime... Discharge Medications Scheduled Allopurinol (Allopurinol) 100 Mg Tablet, 1 TAB PO DAILY Amitriptyline HCl (Amitriptyline HCl) 25 Mg Tablet, 25 MG PO QPM, (Reported) Ascorbic Acid (Vitamin C) 250 Mg Tablet, 1 TAB PO DAILY Aspirin (Aspirin EC) 81 Mg Tab, 81 MG PO DAILY, (Reported) Atorvastatin Calcium (Atorvastatin Calcium) 80 Mg Tablet, 80 MG PO QHS, (Reported) Calcium Citrate/Vitamin D3 (Citracal + D Maximum Caplet) 1 Tab Tab, 3 TAB PO BID, (Reported) Cyanocobalamin (Vitamin B-12) (Vitamin B-12) 1,000 Mcg Tab, 1,000 MCG PO DAILY, (Reported) Dexamethasone (Dexamethasone) 2 Mg Tablet, 2 MG PO DAILY Docusate Sodium (Dok) 100 Mg Capsule, 100 MG PO BID, (Reported) Duloxetine Hcl (Duloxetine HCl) 60 Mg Cap, 60 MG PO DAILY, (Reported) Glucosamine Sulfate Dipot Chlr (Glucosamine) 1,000 Mg Tablet, 1,000 MG PO BID, (Reported) Metoprolol Tartrate (Metoprolol Tartrate) 25 Mg Tablet, 25 MG PO BID, (Reported) Omeprazole (Omeprazole) 40 Mg Cap, 40 MG PO DAILY, (Reported) Pregabalin (Lyrica) 150 Mg Capsule, 150 MG PO BID, (Reported) Tamsulosin HCl (Flomax) 0.4 Mg Capsule, 0.4 MG PO QHS, (Reported) Ubidecarenone/Vit E Acet (Co Q-10 100 mg Softgel) 100 Mg Cap, 100 MG PO BID, (Reported) Zinc Sulfate (Zinc Sulfate) 220 Mg Capsule, 220 MG PO DAILY Scheduled PRN Ipratropium/Albuterol Sulfate (Combivent Respimat 20-100 Mcg) 4 Gm Mist.inhal, 1 PUFF INH QIDP PRN for DYSPNEA Nitroglycerin (Nitrostat) 0.4 Mg Tab.subl, 0.4 MG SL NITRO PRN for CHEST PAIN, (Reported) Nystatin (Nystatin Powder) 15 Gm Powder, 1 APLCT TOP DAILY PRN for RASH/ITCHING, (Reported) APPLY TO GROIN AREA Ondansetron HCl (Ondansetron HCl) 4 Mg Tablet, 4 MG PO Q6H PRN for NAUSEA, (Reported) Sildenafil Citrate (Viagra) 100 Mg Tablet, 100 MG PO DAILYPRN PRN for erectile dysfunction, (Reported) 1 hour before sexual activity Allergies Coded Allergies: Penicillins (Verified Allergy, Intermediate, rash, 04/21/20) naproxen (Verified Adverse Reaction, Intermediate, Gastric bypass, 04/21/20) ibuprofen (Verified Adverse Reaction, Unknown, gastric bypass, 04/21/20) GME ATTESTATION GME ATTESTATION My faculty preceptor for this patient encounter was physically present during the encounter and was fully available. All aspects of the patient interview, examination, medical decision making process, and medical care plan development were reviewed and approved by the faculty preceptor. The faculty preceptor is aware and concurs with the plan as stated in the body of this note and will attest to such by his/her cosignature. MIR CRAVEN DO Apr 23, 2020 19:41
--- NOTE | 2020-04-25 02:36 | IPNPDOC ---
Text Note Date of Service The patient was seen on 04/25/20. NOTE I was informed by RN Marbin Calvo that 's blood Cx are growing gram + cocci in pairs and clusters. I called his home phone number and was unable to get a hold of him; fortunately I was able to get a hold of his using a different phone number. She will bring him back to the hospital tonight. VS,Fishbone, I+O VS, Fishbone, I+O Vital Signs Date Time Temp Pulse Resp B/P (MAP) Pulse Ox O2 Delivery O2 Flow Rate FiO2 04/23/20 12:00 2.0 04/23/20 12:00 94 Nasal Cannula 04/23/20 08:49 96.7 70 18 109/68 (82) BERTRAND SHANNON MD Apr 25, 2020 02:36
[2020-04-25 08:08] LABS: BODY FLUID CULTURE Not indicated. (.); LEGIONELLA ANTIGEN URINE Negative (Negative); ORGANISM ID Not indicated. (.); SPECIMEN SOURCE Urine (.); URINE STREP PNEUMONIAE ANTIGEN Negative (Negative)
== END 2020-04-23 16:37 | disposition home health service (06) | DRG 177 ==
LOC: M ED 16:10 → M ED INP 19:39 → M 4MAIN 23:39
PROVIDERS: ADMIT Internal Medicine; ATTEND Internal Medicine
DX: U07.1 COVID-19 (principal); J12.89 Other viral pneumonia; J96.01 Acute respiratory failure with hypoxia; N17.9 Acute kidney failure, unspecified; Z68.41 Body mass index [BMI] 40.0-44.9, adult; E87.2 Acidosis; I50.9 Heart failure, unspecified; I25.10 Atherosclerotic heart disease of native coronary artery without angina pectoris; F41.9 Anxiety disorder, unspecified; F32.9 Major depressive disorder, single episode, unspecified; E66.9 Obesity, unspecified; Z79.82 Long term (current) use of aspirin; Z79.899 Other long term (current) drug therapy; Z88.0 Allergy status to penicillin; Z88.8 Allergy status to other drugs, medicaments and biological substances; Z88.6 Allergy status to analgesic agent; I11.0 Hypertensive heart disease with heart failure; K21.9 Gastro-esophageal reflux disease without esophagitis; Z87.442 Personal history of urinary calculi; I27.20 Pulmonary hypertension, unspecified; G47.00 Insomnia, unspecified; M10.9 Gout, unspecified

== ENCOUNTER 2020-04-25 03:13 | Inpatient (IN) | payer MEDICARE ==
[~2020-04-25] VITALS: Ht 172.7 cm; Wt 102.4 kg
[~2020-04-25 03:13] MED LIST changes: +ALLO100T PO; +AMIT25TA17 PO; +COMBAER6 INH; +DEXA2TA PO; +FLOM0.4C39 PO; +VIAG100T PO; +VITA250T4 PO; +ZINC220CA PO
--- OUTSIDE RECORDS SUMMARY | 2020-04-25 03:22 | CCD ---
Author Author [facility] Organization [facility] Address Unknown Phone Unavailable Care Team Providers Care Religious Leader Name Role Phone FIGUEROA, Ranjit SR MD [...] Unavailable Phani CATALAN MD Unavailable Unavailable Phani CTAALAN MD Unavailable Unavailable Phani CATALAN MD Unavailable [...] PREET ORTIZ Unavailable Unavailable Khanna, A Soledad DIRECTOR SMB SALES Unavailable Unavailable Khanna, A Soledad DIRECTOR SMB SALES Unavailable Unavailable Khanna, A Soledad DIRECTOR SMB SALES Unavailable Unavailable Khanna, A Soledad DIRECTOR SMB SALES Unavailable Unavailable Khanna, A Soledad DIRECTOR SMB SALES Unavailable Unavailable Khanna, A Soledad DIRECTOR SMB SALES Unavailable Unavailable Khanna, A Soledad DIRECTOR SMB SALES Unavailable Unavailable Khanna, A Soledad DIRECTOR SMB SALES Unavailable Unavailable Khanna, A Soledad DIRECTOR SMB SALES Unavailable Unavailable Khanna, A Soledad DIRECTOR SMB SALES Unavailable Unavailable Khanna, A Soledad DIRECTOR SMB SALES Unavailable Unavailable Khanna, A Soledad DIRECTOR SMB SALES Unavailable Unavailable Khanna, A Soledad DIRECTOR SMB SALES Unavailable Unavailable Khanna, A Soledad DIRECTOR SMB SALES Unavailable Unavailable Khanna, A Soledad DIRECTOR SMB SALES Unavailable Unavailable Khanna, A Soledad DIRECTOR SMB SALES Unavailable Unavailable Khanna, A Soledad DIRECTOR SMB SALES Unavailable Unavailable Khanna, A Soledad DIRECTOR SMB SALES Unavailable Unavailable Khanna, A Soledad DIRECTOR SMB SALES Unavailable Unavailable Khanna, A Soledad DIRECTOR SMB SALES Unavailable Unavailable Khanna, A Soledad DIRECTOR SMB SALES Unavailable Unavailable Khanna, A Soledad DIRECTOR SMB SALES Unavailable Unavailable Khanna, A Soledad DIRECTOR SMB SALES Unavailable Unavailable Khanna, A Soledad DIRECTOR SMB SALES Unavailable Unavailable Khanna, A Soledad DIRECTOR SMB SALES Unavailable Unavailable Khanna, A Soledad DIRECTOR SMB SALES Unavailable Unavailable Khanna, A Soledad DIRECTOR SMB SALES Unavailable Unavailable Hkanna, A Soledad DIRECTOR SMB SALES Unavailable Unavailable Khanna, A Soledad DIRECTOR SMB SALES Unavailable Unavailable Khanna, A Soledad DIRECTOR SMB SALES Unavailable Unavailable Khanna, A Soledad DIRECTOR SMB SALES Unavailable Unavailable Khanna, A Soledad DIRECTOR SMB SALES Unavailable Unavailable Khanna, A Soledad DIRECTOR SMB SALES Unavailable Unavailable Khanna, A Soledad DIRECTOR SMB SALES Unavailable Unavailable Khanna, A Soledad DIRECTOR SMB SALES Unavailable Unavailable Khanna, A Soledad DIRECTOR SMB SALES Unavailable Unavailable Khanna, A Soledad DIRECTOR SMB SALES Unavailable Unavailable Khanna, A Soledad DIRECTOR SMB SALES Unavailable Unavailable Khanna, A Soledad DIRECTOR SMB SALES Unavailable Unavailable Khanan, A Soledad DIRECTOR SMB SALES Unavailable Unavailable Khanna, A Soledad DIRECTOR SMB SALES Unavailable Unavailable Khanna, A Soledad DIRECTOR SMB SALES Unavailable Unavailable Khanna, A Soledad DIRECTOR SMB SALES Unavailable Unavailable Khanna, A Soledad DIRECTOR SMB SALES Unavailable Unavailable Khanna, A Soledad DIRECTOR SMB SALES Unavailable Unavailable Khanna, A Soledad DIRECTOR SMB SALES Unavailable Unavailable Khanna, A Soledad DIRECTOR SMB SALES Unavailable Unavailable Khanna, A Soledad DIRECTOR SMB SALES Unavailable Unavailable Khanna, A Soledad DIRECTOR SMB SALES Unavailable Unavailable Derosalia, R Sarthak ORTIZ Unavailable [...] Manuel) MD Unavailable Unavailable Tin, Keturah Rozina (Victro Manuel) MD Unavailable Unavailable Tin, Keturah Rozina [...] Gregory MISTRY MD Unavailable Unavailable Dator Gregory MITSRY MD Unavailable Unavailable Dator Gregory MISTRY MD [...] Unavailable RADHA, Nilay ALCANTARA MD Unavailable Unavailable RADHA, Nilay ALCANTARA MD Unavailable Unavailable RADHA, Nilay ALCANTARA MD Unavailable Unavailable PIEHAYLEEONKA, Nilay ALCANTARA MD Unavailable Unavailable RADHA, Nilay [...] R Raji MD Unavailable Unavailable McHone, R Arji MD Unavailable Unavailable McHone, R Raji MD [...] by Article 27-F of the [facility] Public Health law. If you continue you may have access to information: Regarding HIV / AIDS; Provided by facilities licensed or operated by the [facility] Office of Mental Health; or Provided by the [facility] Office for People With Developmental Disabilities. If such information is present, then the following [facility] mandated warning applies: This information has [...] law may result in a fine or alf sentence or both. A general authorization for the release of medical or other information is NOT sufficient authorization for further disc losure. Allergies and Adverse Reactions Type Description Substance Reaction Status Data Source(s ) Adverse Reaction Adverse Reaction NSAIDS [facility] ([facility]) Propensity to adverse reactions NSAIDS Nsaids Acti ve [facility] Family History Family Member Name Family Member Gender Family Member Status Date o f Status Description Data Source(s) Unknown Unknown Problem [facility] ([facility]) Unknown Female Problem [facility] ([facility], ) Unknown Female Problem [facility] ([facility], ) Unknown Female Problem [facility] ([facility], ) Unknown Female Problem [facility] ([facility], ) Unknown Female Problem [facility] ([facility] ) Encounters Encounter Providers Location Date Indications Data Source(s ) O Attender: Mamadou GREEN 04/13/19 12:34:34 PM EST - 04/13/2020 01:24:27 PM EST [facility] Outpatient Referrer: Sarthak Montana MD 03/08/2020 11:25: 52 AM EST [facility] Outpatient Referrer: Sarthak Montana MD MOB-MOB.PAT 09:49:23 AM EST - 02/21/2020 09:49:27 AM EST [facility] Inpatient Attender: Sarthak Pemberton DAttender: Gregory Frazier JRAdmitter: Sarthak Montana MDReferrer: Sarthak Montana MD [email or web address] 02/16/2020 0 9:55:13 AM EST - 02/25/2020 01:45:00 PM EST [facility] Patient discharged. Outpatient Referrer: Sarthak Montana MD 02/02/2020 11:42: 03 AM EST [facility] Outpatient Attender: Sarthak Montana MD [place] 02/02/2020 11:40:00 AM EST [facility] ([facility] Inpatient Attender: QUINTON PRIDE MD 01/22/2020 0 6:37:49 PM EDT [facility] Inpatient Attender: QUINTON PRIDE MDAdmitt er: QUINTON PRIDE MD 01/22/2020 03:40:00 PM EDT - 01/25/2020 04:48:00 PM ES T SEPSIS FROM URINARY TRACT INFECTION FEVER S/P URETERAL STENT [facility] SEPSIS FROM URINARY TRACT INFECTION FEVE R S/P URETERAL STENT Patient discharged. Inpatient Attender: QUINTON PRIDE MD 01/22/2020 0 3:40:00 PM EDT [facility] [place] ( in Healthcare facility) Attender: LA PRIDE MDAdmitter: QUINTON PRIDE MDConsultant: REMBERTO MARTI MD 01/22/2020 03:40:00 PM EDT [facility] Inpatient Attender: Raji Wynne MD 01/20/2020 01:27:5 0 PM EDT [facility] Attender: Raji Wynne MD 11:54:00 AM EDT - 01/21/2020 02:23:00 PM EDT [facility] Inpatient Attender: Raji Wynne MDAdmitter: Raji Sharp MD 01/20/2020 11:54:00 AM EDT - 01/21/2020 02:23:00 PM EDT RENAL CALCULUS HYDRONEPHROSIS [facility] RENAL CALCULUS HYDRONEPHROSIS Patient discharged. [place] ( in Healthcare facility) Attender: Klaus Wynne MDAdmitter: Raij Wynne MDConsultant: REMBERTO MARTI MD 01/20/2020 11:54:00 AM EDT [facility] Outpatient Attender: SHARON GREEN Physical Therapy 12/30/2019 0 9:15:00 AM EDT MED[facility] ([facility]) Office Visit Attender: SHARON GREEN Physical Therapy 2019 08:30:00 AM EDT [facility] ([facility]) Outpatient Attender: SHARON GREEN Physical Therapy 11/14/2019 0 5:30:00 PM EDT [facility] ([facility]) Outpatient Attender: SHARON GREEN Physical Therapy 11/07/2019 1 1:00:00 AM EDT [facility] ([facility]) Attender: Keturah Gordon (Jack) MDReferrer: PREET CATALAN MD 10/03/2019 08:20:07 PM EDT [facility] Outpatient Attender: Soledad Khanna NP [place] 09/22/2019 02:30:00 PM EDT [facility] ([facility] Outpatient Attender: Shanae GREEN Main Office 09/02/2019 10:15:0 0 AM EDT [facility] ([facility]) Outpatient Referrer: Sarthak Montana MD 05/21/2019 12:07: 05 PM EST [facility] Outpatient Attender: Soledad Khanna NP [place] 05/21/2019 12:00:00 PM EST [facility]) Medications Medication Brand Name Start Date Product Form Dose Route Admi nistrative Instructions Pharmacy Instructions Status Indications Reaction Description Data Source(s) Blood Pressure Monitor Automatic/Arm 03/15/2020 12:00:00 AM EST active [facility] ([facility]) Tamsulosin hydrochloride 0.4 MG Oral Capsule Tamsulosin HCL 03/14/2020 12:00:00 AM EST ORAL active [facility] ([facility]) Sulfamethoxazole 800 MG / Trimethoprim 160 MG Oral Tablet [B actrim] Bactrim DS 03/08/2020 12:00:00 AM EST ORAL active [facility] ([facility]) normal saline flush 0.9 % injection 3 mL [id number] 02/25/2020 02:00:00 PM EST 3 mL Intravenous active 3 mL , Intravenous, Every 8 hours (scheduled), First dose on Sun02/25/20 at 1400, PACU (only)
flush per protocol, D/C Main IV fluid if appropriate
[facility] Medication administered onsite ondansetron (ZOFRAN) injection 4 mg [id number] 02/25/2020 12:07:2 3 PM EST 4 mg Intravenous active 4 mg, In travenous, Once as needed, nausea, vomiting, Starting Sun02/25/20 at 1207, For 1 dose, PACU (only)
If not given in last 4 hours
[facility] Medication administered onsite Albuterol 0.833 MG/ML / Ipratropium Brom horacio 0.167 MG/ML Inhalant Solution ipratropium-albuterol (DUO-NEB) 0.5-2.5 mg/mL nebulizer solution 3 mL ipratropium-albuterol (DUO-NEB) 0.5-2.5 mg/mL nebulizer solution 3 mL 02/25/2020 12:07:23 PM EST 3 mL Inhalation active 3 mL, Inhalation, Once as needed, shortness of breath, Starting Sun02/25/20 at 1207, For 1 dose, PACU (only) [facility] Medication administered onsite 10 ML Atropine Sulfate [...] or 0.04 mg/kg. Max of 6 doses
[facility] Medication administered onsite HYDROmorphone (DILAUDID) injection 0.5 mg [id number] 02/25/2020 12:07:22 PM EST 0.5 mg Intravenous active 0.5 mg, Intravenous, Every 5 min PRN, severe pain (7-10), Starting Sun02/25/20 at 1207, For 5 doses, PACU (only) [facility] Medication administered onsite fentaNYL Citrate (PF) (SUBLIMAZE) injection 25 mcg [id number] 02/25/2020 12:07:22 PM EST 25 ug Intravenous active 25 mcg, Intravenous, Every 5 min PRN, moderate pain (4 to 6), Starting Sun02/25/20 at 1207, For 5 doses, PACU (only) [facility] Medication administered onsite normal saline flush 0.9 % injection 3 mL [id number] 02/25/2020 10:00:00 AM EST 3 mL Intravenous active 3 mL , Intravenous, Every 8 hours (scheduled), First dose on Sun02/25/20 at 1000, Pre-op
Rapid push positive pressure flushing shall be performed with a 10 cc normal saline syringe to check the PATENCY of a PIV site prior to any infusion therapy initiation unless resistance is met.
[facility] Medication administered onsite tramadol hydrochloride 50 MG Oral Tablet Tramadol HCL 11/07/2019 12:00:00 AM EDT active [facility] ([facility]) Triamcinolone Acetonide 1 MG/ML Topical Cream Triamcinolone Acetonide 09/01/2019 12:00:00 AM EDT active MED[facility] ([facility]) Nystatin 100 UNT/MG Topical Powder [Nyamyc] Nyamyc 09/01/2019 12:00:00 AM EDT active [facility] ([facility]) Betamethasone 0.5 MG/ML / Clotrimazole 10 MG/ML Topica l Cream Clotrimazole/Betamethasone Dipropionate 09/01/2019 12:00:00 AM EDT active [facility] ([facility]) sildenafil 100 MG Oral Tablet [Viagra] Viagra 09/01/2019 12:00:00 AM EDT ORAL active [facility] ([facility]) Insurance Providers Payer name Policy type / Coverage type Policy ID Covered democrat ID Covered democrat's relationship to whitfield Policy Whitfield Plan Information [facility] [id number] SP [id number] [facility] [employer] [id number] Fe f [id number] SELF PAY ONLY [id number] SP [id number] [facility] MEDICARE [id number] Fe [id number] INSURANCE COVID-19 COVID Fe C OVID [facility] MEDIC[facility] [id number] Fe [id number] [facility] MEDICARE [id number] 24 [id number] INSURANCE COVID-19 [id number] [facility] MEDICARE [id number] MEDICARE NICOLE [id number] S [id number] [id number] S [id number] [facility] HEALTH PLANS CLAIMS DEPT [id number] [facility] [id number] SP [id number] [facility] [id number] SP [id number] [facility] MEDICARE Fe [id number] [facility] PREMIER EXCHANGE [id number] Fe [id number] MEDICARE [id number] Fe [id number] [facility] [id number] Fe [id number] MVP [id number] Fe [id number] WELL[facility] MEDICARE PI PI Wellcare MCR - To Ppo Commercial [id number] Self [id number] MVP Indemnity Commercial [id number] Self [id number] Wellcare MCR - To Ppo Commercial [id number] Self [id number] Wellcare-Todays Opts Ppo Commercial [id number] Self [id number] MVP Health Plan Medigap Part B [id number] Family Dependent [id number] Wellcare-Todays Opts Ppo Commercial [id number] Self [id number] MVP PREMIER EXCHANGE [id number] Ef [id number] MVP Health Plan Health Maintenance Organization (HMO) [id number] Family Dependent [id number] MEDICARE [id number] Fe [id number] MEDICARE C [id number] S [id number] A MVP HEALTH CARE O [id number] P [id number] MVP Indemnity Commercial [id number] Self [id number] MEDICARE [id number] Fe [id number] A MVP HEALTH CARE HEA [id number] SP [id number] UNAVAILABLE UNAVAILA BLE MEDICARE MCA [id number] S [id number] A MVP HEALTH CARE HEA [id number] SP [id number] MEDICARE PI PI MVP PREMIER EXCHANGE PI PI MEDICARE [id number] SP [id number] A MVP HEALTH CARE [id number] 80 [id number] MVP H [id number] Self [id number] MVP H [id number] Self [id number] MEDICARE A [id number] Self [id number] A [employer] Insurance Commercial [id number] Family Dependent [id number] BS [place] Medigap Part B [id number] Family Depend ent [id number] BS [place] Medigap Part B [id number] BS [place] Medigap Part B [id number] Family Depend ent [id number] MVP (pr) Commercial [id number] Family Dependent [id number] MVP (pr) Commercial [id number] Family Dependent [id number] MVP H [id number] Self [id number] MVP [id number] Fe [id number] [place] Insurance Commercial [id number] Family Dependent [id number] BS [place] Medigap Part B [id number] Family Depend ent [id number] BS [place] Medigap Part B [id number] BS [place] Medigap Part B [id number] Family Depend ent [id number] MVP (pr) Commercial [id number] Family Dependent [id number] [employer] Insurance Commercial [id number] Family Dependent [id number] BS [place] Medigap Part B [id number] Family Depend ent [id number] BS [place] Medigap Part B [id number] BS [place] Medigap Part B [id number] Family Depend ent [id number] MVP (pr) Commercial [id number] Family Dependent [id number] MVP HEALTH CARE [id number] SP [id number] MEDICARE [id number] SP [id number] A MVP HEALTH CARE [id number] SP [id number] MVP PREMIER EXCHANGE [id number] Fe [id number] MVP HEALTH CARE [id number] SP [id number] MVP Indemnity Commercial Self MVP PREMIER EXCHANGE [id number] Fe [id number] MVP Cigna Ppo Commercial Family Dependent MVP Gold Commercial Family Dependent BCBS [place] PPO 302/307 [id number] EXCELLUS BCBS B [id number] P [id number] MVP (pr) Commercial Family Dependent [place] Insurance Commercial Family Dependent BS [place] Medigap Part B Family Dependent BS [place] Medigap Part B BS [place] Commercial Family Dependent [id number] Problems, Conditions, and Diagnoses Code Display Name Description Problem Type Effective Dates Data Source(s) N20.1 Calculus of ureter Calculus of ureter Diagnosis 04/2019 08:17:00 AM [facility] U07.1 COVID-19 COVID-19 Diagnosis 02/21/2020 09:49:23 AM ES [facility] Surgeries/Procedures Procedure Description Date Indications Data Source(s) CYSTO W/SIMPLE REMOVAL STONE & STENT 03/08/2020 12:00: 00 AM EST [facility] ([facility]) FL RETROGRADE PYELOGRAM RIGHT FL RETROGRADE PYELOGRAM RIGHT S TAT 02/25/2020 1:02 PM EST 02/25/2020 06:02:[address] [facility] GLUC BLD GLUC MNTR DEV CLEARED FDA SPEC HOME USE POCT GLUCOSE Routine 02/25/2020 12:51 PM EST 02/25/2020 05:51:00 PM EST [facility] GLUC BLD GLUC MNTR DEV CLEARED FDA SPEC HOME USE POCT GLUCOSE Routine 02/25/2020 9:27 AM EST 02/25/2020 02:27:00 PM [facility] CYSTO W/INSERT URETERAL STENT 02/25/2020 12:00:[address] [facility] ([facility]) CYSTO W/URETEROSCOPY W/RMVL/MANJ STONES 02/25/2020 12: 00:00 AM EST [facility] ([facility]) CYSTO W/URETEROSCOPY W/LITHOTRIPSY 02/25/2020 12:00:00 AM EST [facility] ([facility]) Echocardiography, Tranthoracic Real-Time Image Documentation 01/23/2020 12:00:00 AM EDT [facility] ([facility]) Electrocardiogram Interpretation & Report Only 020 12:00:00 AM EDT [facility] ([facility]) CYSTO W/INSERT URETERAL STENT 01/20/2020 12:00:00 AM E DT [facility] ([facility]) CT ABDOMEN & PELVIS W/O CONTRAST MATERIAL 01/20/2020 1 2:00:00 AM EDT [facility] ([facility]) X-RAY URINARY TRACT EXAM WITH CONTRAST MATERIAL 2019 12:00:00 AM EDT [facility] ([facility]) Physical Therapy Eval - Low Complexity 01/07/2020 12:0 0:00 AM EDT [facility] ([facility]) RADEX ANKLE COMPLETE MINIMUM 3 VIEWS 12/30/2019 12:00: 00 AM EDT [facility] ([facility]) RADEX ANKLE COMPLETE MINIMUM 3 VIEWS 12/05/2019 12:00: 00 AM EDT [facility] ([facility] ) FX Lateral Malleolus (Distal Fibula) W/O Manipulation 11/14/2019 12:00:00 AM EDT [facility] ([facility]) RADEX SHOULDER COMPLETE MINIMUM 2 VIEWS 11/14/2019 12: 00:00 AM EDT [facility] ([facility]) RADEX ANKLE COMPLETE MINIMUM 3 VIEWS 11/14/2019 12:00: 00 AM EDT [facility] ([facility]) RADEX SHOULDER COMPLETE MINIMUM 2 VIEWS 11/07/2019 12: 00:00 AM EDT [facility] ([facility] ) RADEX ANKLE COMPLETE MINIMUM 3 VIEWS 11/07/2019 12:00: 00 AM EDT [facility] ([facility] ) MYOCARDIAL SPECT MULTIPLE STUDIES 09/29/2019 12:00:00 AM EDT [facility] ([facility]) CV STRS TST XERS&/OR RX CONT ECG PHYS SI&R 09/29/2019 12:00:00 AM EDT [facility] ([facility]) US RETROPERITONEAL REAL TIME W/IMAGE COMPLETE 09/22/19 12:00:00 AM EDT [facility] ([facility]) US RETROPERITONEAL REAL TIME W/IMAGE COMPLETE 09/22/19 12:00:00 AM EDT [facility] ([facility]) ECG ROUTINE ECG W/LEAST 12 LDS W/I&R 09/02/2019 12:00: 00 AM EDT [facility] ([facility]) Results ID Date Data Source [id number] 04/13/2020 12:00:00 AM EST [facility] Name Value Range Interpretation Code Description Data Daphney rce(s) Supporting Document(s) Carestart Rapid COVID Antigen Test Positive [facility] This lab was reported by Madeline altamirano. ID Date Data Source [id number] 04/13/2020 12:00:00 AM EST [facility] Name Value Range Interpretation Code Description Data Daphney rce(s) Supporting Document(s) SARS-CoV-2 (COVID-19) RNA [Presence] in Respiratory specimen by [facility] with probe detection Not Detected [facility] This lab was ordered by [facility] and reported by [facility]. ID Date Data Source [id number] 03/30/2020 12:00:00 AM EST [facility] Name Value Range Interpretation Code Description Data Daphney rce(s) Supporting Document(s) SARS coronavirus 2 RNA Not Detected [facility] This lab was ordered by [facility] and rep orted by [facility]. ID Date Data Source [id number] 03/08/2020 12:43:00 PM EST [facility] ([facility] Name Value Range Interpretation Code Description Data Daphney rce(s) Supporting Document(s) Glucose [Presence] in Urine Laboratory test result [facility] ([facility]) Protein [Presence] in Urine by Test strip Laboratory test result [facility] ([facility]) Ua Nitrite Laboratory test result [facility] ([facility]) Blood [Presence] in Urine by Visual Laboratory test result [facility] ([facility]) Ua Leuko Laboratory test result [facility] ([facility]) Color of Urine Laboratory test result [facility] ([facility]) Ketones [Presence] in Urine by Test strip Laboratory test result [facility] ([facility]) Clarity of Urine Laboratory test result [facility] ([facility]) Ua Specific [place] 1.015 1.003-1.030 MEDE NT ([facility]) Bilirubin.total [Presence] in Urine by Test strip Laboratory test res ult [facility] ([facility]) pH of Urine by Test strip 5.5 5.0-7.5 [facility] ([facility]) Urobilinogen [Mass/volume] in Urine by Test strip 0.2 E.U./dL 0.0-1.0 [facility] ([facility]) ID Date Data Source [id number] 03/08/2020 11:28:00 AM EST [facility] XRAY ABDOMEN KUBCLINICAL [...] Phani BELTRAN M.D. on 03/08/2020 Transcribed by: aa on 03/08/2020 11:37 AMCDS G code: ,CDS Modifier: ,cc: Name Value Range Interpretation Code Description Data Daphney rce(s) Supporting Document(s) ID Date Data Source [id number] 02/25/2020 07:26:00 PM EST [facility] ([facility] Name Value Range Interpretation Code Description Data Daphney rce(s) Supporting Document(s) Laboratory test finding (navigational concept) 140 mg/dL 70-99 [facility] ([facility]) PERFORMED BY [facility] CLINICAL STAFF ID Date Data Source [id number] 02/25/2020 01:55:29 PM EST [address] [id number] Name: JOSE VILLATORODOB: 1955Sex: MOrdering Provider: SARTHAK Bustamante Prov: SARTHAK Kohler Provider: Procedure Performed: FL RETROGRADE PYELOGRAM RIGHTExam Date: 02/25/2020 13:02MRN: [id number] Number: [id number] Class: InpatientAccount #: [id number] Exam: Right ureteral stone [N20.1]Technique: Fluoroscopy with no digital spot images obtained.Fluoroscopy time: 11 SecondsNumber of Spot Images: 0Comparison: NoneFindings: C-arm was performed in OR. 7 spot radiographs are obtained. Fluoroscopic time: 11.2 seconds. There is placement of a ureteral stent.IMPRESSION: C-arm in OR as described.Report electronically signed by: JAMES CARBAJAL On 02/25/2020 1:55 PMWorkstation ID: [id number] Name Value Range Interpretation Code Description Data Daphney rce(s) Supporting Document(s) ID Date Data Source [id number] 02/25/2020 02:26:46 PM EST [facility] Name Value Range Interpretation Code Description Data Daphney rce(s) Supporting Document(s) POC NOVA GLU 140 mg/dL (70-99) H [facility] [place] [facility] PERFORMED BY [facility] CLINICAL STAFF ID Date Data Source [id number] 02/25/2020 11:56:00 AM EST [facility] ([facility]) Name Value Range Interpretation Code Description Data [facility] rce(s) Supporting Document(s) Composition in Stone Laboratory test result [facility] ([facility]) Calculi composed primarily of: 90% calcium oxalate [...] composition determined by FTIR analysis. Performed By: [facility] [address] [place] [id number] Handstitching Machine Armhole Feller: Ny Mckeon MD Size [Entitic volume] of Stone Laboratory test result [facility] ([facility]) Unit: mm Number of Stones 1 [facility] ([facility]oc [facility]) Weight of Unspecified specimen 166 mg [facility] ([facility]) Appearance of Stone Laboratory test result [facility] ([facility]) Specimen consists of a single, large, brown, irregular calculus. ID Date Data Source [id number] 02/29/2020 07:49:20 AM EST [facility] Name Value Range Interpretation Code Description Data [facility] rce(s) Supporting Document(s) COMPOSITION Lab [facility] See Note Calculi composed primarily of: [...] composition determined by FTIR analysis. Performed By: [facility] [address] [place] [address] Handstitching Machine Armhole Feller: Ny Mckeon MD MASS 166 mg [facility] [place] CALCULI NUMBER 1 [facility] [place] CALCULI SIZE [facility] [place] > 9Unit: mm CALCULI DESCRIPTION Lab [facility] [place] See Note Specimen consists of a single, large, brown, irregular calculus. ID Date Data Source [id number] 02/25/2020 11:49:00 AM EST [facility] INFORMATIONPatient MRN Name Date of Age Gend*PT [id number] Alexei Villatororicky Bernard 1955 64 years M SDCXPT Location Admission Date/Time [facility] --- Sarthak Montana MD([id number]) EPI ID CSN Admitting Provider [id number] Sarthak Montana MD([id number])OPERATIVE NOTEPatient Name: Jose VillatoroMedical Record Number: [id number] of Procedure: 02/25/2020Surgeon: Sarthak Montana M.D.Pre-operative diagnosis: right ureteral calculiPost-operative diagnosis: SameProcedure: cystoscopy, right ureteroscopy, basket stone removal, right ureteralstent exchangeAnesthesia: GABlood/fluids administered: crystalloidEstimated blood loss: minimalComplications: NoneSpecimens: right ureteral calculiDrains: Right 6 Vietnamese multi-length ureteral stentProcedure:Informed consent was obtained. Antibiotics [...] access sheath was removed with a w lbanka in place.A right 6 Vietnamese multi-length ureteral stent was placed using cystoscopic andfluoroscopic guidance without difficulty.The bladder was emptied and the scope was withdrawn.There were no surgical complications.Sarthak Montana M.D.Date: 02/25/2020Time: 11:46 AM Name Value Range Interpretation Code Description Data D[facility]y rce(s) Supporting Document(s) ID Date Data Source [id number] 02/25/2020 10:06:34 AM EST [facility] INFORMATIONPatient MRN Name Date of Age Gend*PT [id number] Jose Villatoro 1955 64 years M SDCXPT Location Admission Date/Time Visit ID [facility]20816 --- Sarthak Montana MD([id number]) EPI ID [facility] Admitting Provider [id number] Sarthak Montana MD([id number])Pre-Procedure History and Physical:The history and physical were reviewed and the patient was examined.Reviewed and updated. No changes.Sarthak Montana MD02/24/2010:06 AM Name Value Range Interpretation Code Description Data Daphney rce(s) Supporting Document(s) ID Date Data Source [id number] 02/25/2020 09:27:00 AM EST [facility] ([facility] [place]) Name Value Range Interpretation Code Description Data Daphney rce(s) Supporting Document(s) Glucose [Mass/volume] in Capillary blood by Glucometer 140 mg/dL 70- 99 [facility] ([facility] [place]) PERFORMED BY [facility] CLINICAL STAFF ID Date Data Source [id number] 02/25/2020 09:30:08 AM EST Lab [facility] Name Value Range Interpretation Code Description Data Daphney rce(s) Supporting Document(s) POC NOVA GLU 143 mg/dL (70-99) H Lab [facility] PERFORMED BY [facility] CLINICAL STAFF ID Date Data Source [id number] 02/21/2020 09:40:00 AM EST [facility] Name Value Range Interpretation Code Description Data Daphney rce(s) Supporting Document(s) SARS coronavirus 2 RNA [facility] This lab was ordered by [facility] and reported by [facility]. ID Date Data Source [id number] 02/22/2020 05:08:25 PM EST Lab [facility] Name Value Range Interpretation Code Description Data Daphney rce(s) Supporting Document(s) SARS-COV-2 ASCENCION Lab [facility] Not DetectedReference range: Not Detecte d This nucleic acid amplification test was developed and its performance characteristics determined by [employer]. Nucleic acid amplification tests include PCR and [...] detected) result in this assay. Performed At: [facility] [address] [place], [place] [id number] Johnny Church PhD Ph:[id number] ID Date Data Source [id number] 02/02/2020 12:54:00 PM EST [facility] ([facility] [place]) Name Value Range Interpretation Code Description Data Daphney rce(s) Supporting Document(s) Protein [Presence] in Urine by Test strip Laboratory test result [facility] ([facility] [place]) Glucose [Presence] in Urine Laboratory test result [facility] ([facility]) Ua Nitrite Laboratory test result ME DENT ([facility]) Blood [Presence] in Urine by Visual Laboratory test result [facility] ([facility]) Ua Leuko Laboratory test result [facility] ([facility]) Color of Urine Laboratory test result [facility] ([facility]) Clarity of Urine Laboratory test result [facility] ([facility]) Ketones [Presence] in Urine by Test strip Laboratory test result [facility] ([facility]) Bilirubin.total [Presence] in Urine by Test strip Laboratory test res ult [facility] ([facility]) Ua Specific [place] 1.015 1.003-1.030 MEDE NT ([facility]) pH of Urine by Test strip 5.5 5.0-7.5 [facility] ([facility]) Urobilinogen [Mass/volume] in Urine by Test strip 0.2 E.U./dL 0.0-1.0 [facility] ([facility]) ID Date Data Source [id number] 02/02/2020 11:47:00 AM EST [facility]: XRAY ABDOMEN KUBCLINICAL HISTORY: Calculus [...] rce(s) Supporting Document(s) ID Date Data Source [id number] 01/25/2020 02:17:00 PM EST [facility] ([facility]i [facility]y [facility]) Name Value Range Interpretation Code Description Data Daphney rce(s) Supporting Document(s) Sodium 145 [facility] (Cardiology A ssociates of [facility]) Calcium [Mass/volume] in Serum or Plasma 8.0 [facility] ([facility]) Chloride [Moles/volume] in Serum or Plasma 115 [facility] ([facility]) Carbon dioxide, total [Moles/volume] in Serum or Plasma 23 [facility] ([facility]) Potassium [Moles/volume] in Serum or Plasma 3.8 [facility] ([facility]) Creatinine 1.29 0.80-1.30 [facility] ([facility]) Blood Urea Nitrogen 17 7-24 [facility] (Ca rdiology [facility]) Glucose 192 70-99 [facility] ([facility]) Glomerular filtration rate/1.73 sq M.pre dicted [Volume Rate/Area] in Serum or Plasma by Creatinine-based formula (MDRD) 56 [facility] ([facility]) ID Date Data Source [id number] 01/25/2020 02:17:00 PM EST [facility] ([facility]i [facility]) Name Value Range Interpretation Code Description Data [facility] rce(s) Supporting Document(s) Red Blood Count 3.88 4.60-6.10 [facility] (Cardio logy Associates of [facility]) White Blood Count 10.1 4.1-11.0 [facility] (Card iology [facility] of [facility]) Hemoglobin 12.6 13.5-18.0 [facility] ([facility]) Hematocrit 37.6 41.0-53.0 [facility] ([facility]) Platelets 192 150-450 [facility] ([facility]) ID Date Data Source [id number] 01/25/2020 06:18:00 AM EST [facility] ([facility] [place]) Name Value Range Interpretation Code Description Data Daphney rce(s) Supporting Document(s) Sodium [Moles/volume] in Serum or Plasma 145 mmol/L 136-145 [facility] ([facility]) Carbon dioxide, total [Moles/volume] in Serum or Plasma 23 mmol/L 22 -31 [facility] ([facility]) Potassium 3.8 mmol/L 3.6-5.2 [facility] (Associ ated [facility]) Chloride [Moles/volume] in Serum or Plasma 115 mmol/L 100-108 [facility] ([facility]) Creatinine [Mass/volume] in Serum or Plasma 1.29 mg/dL 0.80-1.30 [facility] ([facility]) Urea nitrogen [Mass/volume] in Serum or Plasma 17 mg/dL 7-24 [facility] ([facility]) Anion gap 3 in Serum or Plasma 7 mmol/L 7-16 [facility] ([facility]) Urea nitrogen/Creatinine [Mass Ratio] in Serum or Plasma 13.2 RATIO 10.0-20.0 [facility] ([facility]) Calcium [Mass/volume] in Serum or Plasma 8.0 mg/dL 8.4-10.2 [facility] ([facility]) Glucose [Mass/volume] in Serum or Plasma 192 mg/dL 70-99 [facility] ([facility]) Glomerular filtration rate/1.73 sq M.pre dicted [Volume Rate/Area] in Serum or Plasma by Creatinine-based formula (MDRD) 56 ml/min/1.73m2 [facility] ([facility]) GFR Interpretation Laboratory test result [facility] ([facility]) <content></content>
<content> </con tent>
<content>NORMAL KIDNEY FUNCTION</content>
[...] formula (MDRD) Laboratory test result [facility] ([facility]) ID Date Data Source [id number] 01/25/2020 06:18:00 AM EST [facility] ([facility]oc i[facility]) Name Value Range Interpretation Code Description Data Daphney rce(s) Supporting Document(s) Erythrocytes [#/volume] in Blood by Automated count 3.88 10*6/uL 4.60 -6.10 [facility] ([facility]) Leukocytes [#/volume] in Blood by Automated count 10.1 10*3/uL 4.1-11 .0 [facility] ([facility] [place]) Hematocrit [Volume Fraction] of Blood by Automated count 37.6 % 4 1.0-53.0 [facility] ([facility]) Hemoglobin [Mass/volume] in Blood 12.6 g/dL 13.5-18.0 [facility] ([facility]) Erythrocyte mean corpuscular hemoglobin [Entitic mass] by Automated count 32.3 pg 27.0-32.0 [facility] ([facility]) Erythrocyte mean corpuscular hemoglobin concentration [Mass/volume] by Automated count 33.4 g/dL 32.0-36.0 [facility] ([facility] Med[facility] l [facility]) Erythrocyte mean corpuscular volume [Entitic volume] by Auto mated count 96.8 fL 80.0-95.0 [facility] ([facility]) Platelets [#/volume] in Blood by Automated count 192 10*3/uL 150-450 [facility] ([facility]) Platelet mean volume [Entitic volume] in Blood by Automated count 8.8 fL 7.1-10.7 [facility] ([facility]) Erythrocyte distribution width [Ratio] by Automated count 14.2 % 10.5-14.5 [facility]) ID Date Data Source [id number] 01/25/2020 07:12:35 AM EST [facility] [place] Name Value Range Interpretation Code Description Data Daphney rce(s) Supporting Document(s) SODIUM 145 mmol/L (136-145) [facility] POTASSIUM 3.8 mmol/L (3.6-5.2) [facility] CHLORIDE 115 mmol/L (100-108) H [facility] CO2 23 mmol/L (22-31) [facility] ANION GAP 7 mmol/L (7-16) [facility] UREA NITROGEN 17 mg/dL (7-24) [facility] CREATININE 1.29 mg/dL (0.80-1.30) [facility] BUN/CREAT RATIO 13.2 RATIO (10.0-20.0) [facility] [place] GLUCOSE 192 mg/dL (70-99) H [facility] CALCIUM 8.0 mg/dL (8.4-10.2) L [facility] GFR 56 ml/min/1.73m2 (>59) L [facility] GFR ( AMER) >60 ml/min/1.73m2 (>59) [facility] GFR INTERPRETATION [facility] [place] --NORMAL KIDNEY FUNCTION OR MILD DISEASE - GFR >OR= 60CHRONIC KIDNEY DISEASE - GFR 15 - 59RENAL FAILURE - GFR <15 Est. GFR calculation based on the MDRDstudy equation, which assumes a steadystate for creatinine. Est. GFR should notbe used for medication dosing. ID Date Data Source [id number] 01/25/2020 06:57:56 AM EST [facility] [place] Name Value Range Interpretation Code Description Data Daphney rce(s) Supporting Document(s) WBC 10.1 10*3/uL (4.1-11.0) [facility] [place] RBC 3.88 10*6/uL (4.60-6.10) L [facility] HGB 12.6 g/dL (13.5-18.0) L [facility] [place] HCT 37.6 % (41.0-53.0) L [facility] [place] MCV 96.8 fL (80.0-95.0) H [facility] MCH 32.3 pg (27.0-32.0) H [facility] MCHC 33.4 g/dL (32.0-36.0) [facility] [place] RDW 14.2 % (10.5-14.5) [facility] PLT 192 10*3/uL (150-450) [facility] [place] MPV 8.8 fL (7.1-10.7) [facility] ID Date Data Source [id number] 01/24/2020 09:50:00 AM EDT [facility] [...] hydronephrosis. D7End of diagnostic report for accession: [id number] Interpreted: Juvenal Elmore MDTranscribed: 01/24/2020 09:38 AMSigned: 01/24/2020 09:50 AM Juvenal Elmore MD [facility] # [id number] BILL # [id number] Name Value Range Interpretation Code Description Data Daphney rce(s) Supporting Document(s) ID Date Data Source [id number] 01/24/2020 06:57:00 AM EDT [facility] ([facility]oc [facility]) Name Value Range Interpretation Code Description Data Daphney rce(s) Supporting Document(s) Sodium [Moles/volume] in Serum or Plasma 141 mmol/L 136-145 [facility] ([facility]) Potassium 3.7 mmol/L 3.6-5.2 [facility] (Associ ated [facility]) Chloride [Moles/volume] in Serum or Plasma 112 mmol/L 100-108 [facility] ([facility]) Carbon dioxide, total [Moles/volume] in Serum or Plasma 21 mmol/L 22 -31 [facility] ([facility]) Anion gap 3 in Serum or Plasma 8 mmol/L 7-16 [facility] ([facility]) Urea nitrogen [Mass/volume] in Serum or Plasma 19 mg/dL 7-24 [facility] ([facility]) Urea nitrogen/Creatinine [Mass Ratio] in Serum or Plasma 13.2 RATIO 10.0-20.0 [facility] ([facility]) Creatinine [Mass/volume] in Serum or Plasma 1.44 mg/dL 0.80-1.30 [facility] ([facility]) Glucose [Mass/volume] in Serum or Plasma 197 mg/dL 70-99 [facility] ([facility]) Glomerular filtration rate/1.73 sq M pre dicted among blacks [Volume Rate/Area] in Serum or Plasma by Creatinine-based formula (MDRD) Laboratory test result [facility] ([facility]) Calcium [Mass/volume] in Serum or Plasma 7.7 mg/dL 8.4-10.2 [facility] ([facility]) Glomerular filtration rate/1.73 sq M.pre dicted [Volume Rate/Area] in Serum or Plasma by Creatinine-based formula (MDRD) 50 ml/min/1.73m2 [facility] ([facility] [place]) GFR Interpretation Laboratory test result [facility] ([facility] [place]) <content></content>
<content> </con tent>
<content>NORMAL KIDNEY FUNCTION</content>
<content> OR MILD DISEASE - GFR >OR= 60</content>
<content>CHRONIC KIDNEY DISEASE - GFR 15 - 59</content>
<content>RENAL FAILURE - GFR <15</content>
<content> </content>< br/><content>Est. GFR calculation based on the MDRD</content>
<content>study equation, which assumes a steady</content>
<content>state for creatinine. Est. GFR should not</content>
<content>be used for medication dosing.</content>
<content></content> ID Date Data Source [id number] 01/24/2020 06:57:00 AM EDT [facility] ([facility]oc [facility]) Name Value Range Interpretation Code Description Data Daphney rce(s) Supporting Document(s) Erythrocytes [#/volume] in Blood by Automated count 4.04 10*6/uL 4.60 -6.10 [facility] ([facility]) Leukocytes [#/volume] in Blood by Automated count 11.8 10*3/uL 4.1-11 .0 [facility] ([facility]) Erythrocyte mean corpuscular volume [Entitic volume] by Auto mated count 97.1 fL 80.0-95.0 [facility] Hematocrit [Volume Fraction] of Blood by Automated count 39.2 % 4 1.0-53.0 [facility] ([facility]) Hemoglobin [Mass/volume] in Blood 12.9 g/dL 13.5-18.0 [facility] ([facility]) Erythrocyte distribution width [Ratio] by Automated count 14.1 % 10.5-14.5 [facility] ([facility]) Erythrocyte mean corpuscular hemoglobin concentration [Mass/volume] by Automated count 32.8 g/dL 32.0-36.0 [facility] ([facility]) Erythrocyte mean corpuscular hemoglobin [Entitic mass] by Automated count 31.8 pg 27.0-32.0 [facility] ([facility]) Platelet mean volume [Entitic volume] in Blood by Automated count 9.0 fL 7.1-10.7 [facility] ([facility]) Platelets [#/volume] in Blood by Automated count 152 10*3/uL 150-450 [facility] ([facility]) ID Date Data Source [id number] 01/24/2020 07:48:27 AM EDT [facility] [place] Name Value Range Interpretation Code Description Data Daphney rce(s) Supporting Document(s) SODIUM 141 mmol/L (136-145) [facility] POTASSIUM 3.7 mmol/L (3.6-5.2) [facility] CHLORIDE 112 mmol/L (100-108) H [facility] CO2 21 mmol/L (22-31) L [facility] ANION GAP 8 mmol/L (7-16) [facility] UREA NITROGEN 19 mg/dL (7-24) [facility] CREATININE 1.44 mg/dL (0.80-1.30) H [facility] BUN/CREAT RATIO 13.2 RATIO (10.0-20.0) [facility] GLUCOSE 197 mg/dL (70-99) H [facility] CALCIUM 7.7 mg/dL (8.4-10.2) L [facility] GFR 50 ml/min/1.73m2 (>59) L [facility] GFR ( AMER) >60 ml/min/1.73m2 (>59) [facility] GFR INTERPRETATION [facility] --NORMAL KIDNEY FUNCTION OR MILD DISEASE - GFR >OR= 60CHRONIC KIDNEY DISEASE - GFR 15 - 59RENAL FAILURE - GFR <15 Est. GFR calculation based on the MDRDstudy equation, which assumes a steadystate for creatinine. Est. GFR should notbe used for medication dosing. ID Date Data Source [id number] 01/24/2020 07:37:38 AM EDT [facility] [place] Name Value Range Interpretation Code Description Data Daphney rce(s) Supporting Document(s) WBC 11.8 10*3/uL (4.1-11.0) H [facility] [place] RBC 4.04 10*6/uL (4.60-6.10) L [facility] HGB 12.9 g/dL (13.5-18.0) L [facility] HCT 39.2 % (41.0-53.0) L [facility] MCV 97.1 fL (80.0-95.0) H [facility] MCH 31.8 pg (27.0-32.0) [facility] MCHC 32.8 g/dL (32.0-36.0) [facility] RDW 14.1 % (10.5-14.5) [facility] PLT 152 10*3/uL (150-450) [facility] MPV 9.0 fL (7.1-10.7) [facility] ID Date Data Source [id number] 01/23/2020 11:00:00 AM EDT [facility] ([facility] [place]) Name Value Range Interpretation Code Description Data Daphney rce(s) Supporting Document(s) Leukocytes [#/volume] in Blood by Automated count 14.4 10*3/uL 4.1-11 .0 [facility] ([facility] [place]) Erythrocytes [#/volume] in Blood by Automated count 3.93 10*6/uL 4.60 -6.10 [facility] ([facility]) Erythrocyte mean corpuscular volume [Entitic volume] by Auto mated count 96.3 fL 80.0-95.0 [facility] ([facility]) Hemoglobin [Mass/volume] in Blood 12.4 g/dL 13.5-18.0 [facility] ([facility]) Hematocrit [Volume Fraction] of Blood by Automated count 37.8 % 4 1.0-53.0 [facility] ([facility]) Erythrocyte mean corpuscular hemoglobin concentration [Mass/volume] by Automated count 32.8 g/dL 32.0-36.0 [facility] ([facility]) Erythrocyte mean corpuscular hemoglobin [Entitic mass] by Automated count 31.6 pg 27.0-32.0 [facility] ([facility]) Erythrocyte distribution width [Ratio] by Automated count 14.4 % 10.5-14.5 [facility] ([facility]) Platelets [#/volume] in Blood by Automated count 161 10*3/uL 150-450 [facility] ([facility]) Platelet mean volume [Entitic volume] in Blood by Automated count 9.1 fL 7.1-10.7 [facility] ([facility]) ID Date Data Source [id number] 01/23/2020 11:00:00 AM EDT [facility] ([facility]) Name Value Range Interpretation Code Description Data Daphney rce(s) Supporting Document(s) Sodium [Moles/volume] in Serum or Plasma 138 mmol/L 136-145 [facility] ([facility]) Potassium 3.6 mmol/L 3.6-5.2 [facility] ([facility]) Chloride [Moles/volume] in Serum or Plasma 106 mmol/L 100-108 [facility] ([facility]) Carbon dioxide, total [Moles/volume] in Serum or Plasma 25 mmol/L 22 -31 [facility] ([facility]) Anion gap 3 in Serum or Plasma 7 mmol/L 7-16 [facility] ([facility]) Creatinine [Mass/volume] in Serum or Plasma 1.56 mg/dL 0.80-1.30 [facility] ([facility]) Urea nitrogen [Mass/volume] in Serum or Plasma 20 mg/dL 7-24 [facility] ([facility]) Calcium [Mass/volume] in Serum or Plasma 7.7 mg/dL 8.4-10.2 [facility] ([facility]) Glucose [Mass/volume] in Serum or Plasma 142 mg/dL 70-99 [facility] ([facility]) Urea nitrogen/Creatinine [Mass Ratio] in Serum or Plasma 12.8 RATIO 10.0-20.0 [facility] ([facility]) GFR Interpretation Laboratory test result [facility] ([facility]) <content></content>
<content> </con tent>
<content>NORMAL KIDNEY FUNCTION</content>
[...] Plasma by Creatinine-based formula (MDRD) 55 ml/min/1.73m2 [facility] ([facility]) Glomerular filtration rate/1.73 sq M.pre dicted [Volume Rate/Area] in Serum or Plasma by Creatinine-based formula (MDRD) 45 ml/min/1.73m2 [facility] ([facility] [place]) ID Date Data Source [id number] 01/23/2020 11:00:00 AM EDT [facility] ([facility] [place]) Name Value Range Interpretation Code Description Data Daphney rce(s) Supporting Document(s) Troponin I.cardiac [Mass/volume] in Serum or Plasma Laboratory test result [facility] ([facility] [place]) Less than 0.05: Myocardial injury unlike ly Greater than or equal to 0.05: Highly suggestive of myocardial injury Correlation with rise and/or fall of serial troponins, clinical symptoms and ECG changes is necessary. ID Date Data Source [id number] 01/23/2020 12:02:00 PM EDT [facility] Name Value Range Interpretation Code Description Data Daphney rce(s) Supporting Document(s) TROPONIN I <0.05 ng/mL (<0.05) [facility] [place] Less than 0.05: Myocardial injury unlike lyGreater than or equal to 0.05: Highly suggestive of myocardial injuryCorrelation with rise and/or fall ofserial troponins, clinical symptomsand ECG changes is necessary. ID Date Data Source [id number] 01/23/2020 12:02:00 PM EDT [facility] Name Value Range Interpretation Code Description Data Daphney rce(s) Supporting Document(s) SODIUM 138 mmol/L (136-145) [facility] POTASSIUM 3.6 mmol/L (3.6-5.2) [facility] CHLORIDE 106 mmol/L (100-108) [facility] CO2 25 mmol/L (22-31) [facility] ANION GAP 7 mmol/L (7-16) [facility] UREA NITROGEN 20 mg/dL (7-24) [facility] CREATININE 1.56 mg/dL (0.80-1.30) H [facility] BUN/CREAT RATIO 12.8 RATIO (10.0-20.0) [facility] GLUCOSE 142 mg/dL (70-99) H [facility] CALCIUM 7.7 mg/dL (8.4-10.2) L [facility] GFR 45 ml/min/1.73m2 (>59) L [facility] GFR ([facility]) 55 ml/min/1.73m2 (>59) L [facility] GFR INTERPRETATION [facility] --NORMAL KIDNEY FUNCTION OR MILD DISEASE - GFR >OR= 60CHRONIC KIDNEY DISEASE - GFR 15 - 59RENAL FAILURE - GFR <15 Est. GFR calculation based on the MDRDstudy equation, which assumes a steadystate for creatinine. Est. GFR should notbe used for medication dosing. ID Date Data Source [id number] 01/23/2020 11:38:24 AM EDT [facility] Name Value Range Interpretation Code Description Data Daphney rce(s) Supporting Document(s) WBC 14.4 10*3/uL (4.1-11.0) H [facility] RBC 3.93 10*6/uL (4.60-6.10) L [facility] HGB 12.4 g/dL (13.5-18.0) L [facility] HCT 37.8 % (41.0-53.0) L [facility] MCV 96.3 fL (80.0-95.0) H [facility] MCH 31.6 pg (27.0-32.0) [facility] MCHC 32.8 g/dL (32.0-36.0) [facility] RDW 14.4 % (10.5-14.5) [facility] PLT 161 10*3/uL (150-450) [facility] MPV 9.1 fL (7.1-10.7) [facility] ID Date Data Source [id number] 01/23/2020 02:30:56 AM EDT [facility] Name Value Range Interpretation Code Description Data Daphney rce(s) Supporting Document(s) TROPONIN I <0.05 ng/mL (<0.05) [facility] [place] Less than 0.05: Myocardial injury unlike lyGreater than or equal to 0.05: Highly suggestive of myocardial injuryCorrelation with rise and/or fall ofserial troponins, clinical symptomsand ECG changes is necessary. ID Date Data Source [id number] 01/22/2020 07:55:00 PM EDT [facility] DATE OF EXAM: 01/22/2020EXAM: Chest 2V [...] elevation. X5End of diagnostic report for accession: [id number] Interpreted: Marisel Davila MDTranscribed: 01/22/2020 07:52 PMSigned: 01/22/2020 07:55 PM Mar[address] [facility] # [id number] [facility] # [id number] Name Value Range Interpretation Code Description Data Daphney rce(s) Supporting Document(s) ID Date Data Source [id number] 01/22/2020 06:58:33 PM EDT [facility] [place] Name Value Range Interpretation Code Description Data Daphney rce(s) Supporting Document(s) TROPONIN I <0.05 ng/mL (<0.05) [facility] [place] Less than 0.05: Myocardial injury unlike lyGreater than or equal to 0.05: Highly suggestive of myocardial injuryCorrelation with rise and/or fall ofserial troponins, clinical symptomsand ECG changes is necessary. ID Date Data Source [id number] 01/22/2020 06:58:33 PM EDT [facility] [place] Name Value Range Interpretation Code Description Data Daphney rce(s) Supporting Document(s) SODIUM 138 mmol/L (136-145) [facility] POTASSIUM 3.9 mmol/L (3.6-5.2) [facility] CHLORIDE 106 mmol/L (100-108) [facility] CO2 24 mmol/L (22-31) [facility] ANION GAP 8 mmol/L (7-16) [facility] UREA NITROGEN 16 mg/dL (7-24) [facility] CREATININE 1.60 mg/dL (0.80-1.30) H [facility] BUN/CREAT RATIO 10.0 RATIO (10.0-20.0) [facility] GLUCOSE 156 mg/dL (70-99) H [facility] CALCIUM 8.6 mg/dL (8.4-10.2) [facility] GFR 44 ml/min/1.73m2 (>59) L [facility] GFR ( AMER) 53 ml/min/1.73m2 (>59) L [facility] GFR INTERPRETATION [facility] --NORMAL KIDNEY FUNCTION OR MILD DISEASE - GFR >OR= 60CHRONIC KIDNEY DISEASE - GFR 15 - 59RENAL FAILURE - GFR <15 Est. GFR calculation based on the MDRDstudy equation, which assumes a steadystate for creatinine. Est. GFR should notbe used for medication dosing. ID Date Data Source [id number] 01/22/2020 06:37:48 PM EDT [facility] [place] Name Value Range Interpretation Code Description Data Daphney [facility](s) Supporting Document(s) WBC 16.0 10*3/uL (4.1-11.0) H [facility] RBC 4.67 10*6/uL (4.60-6.10) [facility] HGB 14.7 g/dL (13.5-18.0) [facility] HCT 45.2 % (41.0-53.0) [facility] MCV 96.7 fL (80.0-95.0) H [facility] MCH 31.4 pg (27.0-32.0) [facility] MCHC 32.5 g/dL (32.0-36.0) [facility] RDW 14.5 % (10.5-14.5) [facility] PLT 163 10*3/uL (150-450) [facility] MPV 8.2 fL (7.1-10.7) [facility] ID Date Data Source [id number] 01/23/2020 07:46:00 PM EDT [facility] [id number] [place], [place] [address]PATIENT NAME: JOSE VILLATORODATE OF : 1955REPORT: CONSULTATIONPATIENT NUMBER: [id number] STATUS: IPMEDICAL RECORD NUMBER: [id number]: [facility] HOSPITALIST CONSULTATIONDATE OF CONSULTATION: 01/22/2020CONSULT REQUESTED BY: [...] four hours PRNPRN Reason: painExtended Instructions: istop [id number] MaxDailyDose- 6Medication Status: activeomeprazole 40 mg capsule,delayed [...] also request a chest x-ray. Will request conditioning machine operator covering hospitalist to follow overnight work up.Thank you for this consult. Hospitalist team will follow with you.DICTATED BY: JOSSELIN Hayictated: 01/22/2020 18:00DT: 01/22/2020 18:09Job #: [id number]: Quinton Pride MDNOTE: [facility] computer generated reports are notconfirmed or authenticated unless they are signed by the providerElectronically Authenticated and Edited by:ADELINA ALCARAZ MD On 01/23/2020 07:46 PM EDT Name Value Range Interpretation Code Description Data Daphney rce(s) Supporting Document(s) ID Date Data Source [id number] 01/22/2020 05:32:39 PM EDT [facility] Name Value Range Interpretation Code Description Data Daphney rce(s) Supporting Document(s) MUSE EKG PDF encoded [facility] DLTPZx1iRcYCSjKfx7NqBgGsJWDvPG2ottv9J8Z3tDPmV0HtfCLjp6duC0SdC4ImAKEzSKBFHQ5KyXZh jb2 [file] d8YZ2RP6+o3Z2QrVHa5wu7T/T/0td+NaXSP/4d5++Nguyễn+MyH7dpy2b7g0Dn9/kiyVsM2wmJC+t3zXkY+ A7+A8d57Tk/MXn3U82FEC3e+estF/g33M1o2qAkq+688tK+0Y6b7NgqQX5A/ko61jlor+SSn/5o9J1d4 Olangei3sf1Za4I/elypO5f5z/DKSbn/ddLitwf654 kWUcg36k8+WtPy9v+/ChvLcA3nfGmZaA8mtt1U9+4/m2byzH+HqQzn1rz9a4F7buF4gpuS4hv9uJe/Ld sl/dPGG/XcByXfenWvjDw6N+G/VN/eqlwXfwUV/EczzbI4jbyud17SoQTS4beE9l3W1CcO4W+stsZ5G0 Kxlo4RmD0c4VTd9+XWm/aqm9Hu7i2yavVacCmefH+b vvL6gz3dHE+1V9G+qtmj3Pn0h216C+PZh/zwRfwO/69ub9y3WAkwRiHP+RD/YM8PwsSDvlz+pXLw1+IP 6jxRr8u6u++Zm06HiXC954pBR3gFE9AoAebr38o1ePPo/hNZQnxNcWg4Ut+8P0ur0ZD+uYLih7IT4y1r X6Qw0if5V573hiTxY/awnZf9dgA/7sfnTatC21QGP/ eup3x5oNfHt210eq3VrA+6DH5r95dadTauCVkdSXL050yHfY6Wboq6E1K7Qlrgx7ZqKkYuZyVFIxhLmr FjnfzcL6o6W4cS6BFF/J75zisRz3FoDw8bq45o9rn+2xutr+dVbon5q2dClbQ+nh5Bc0VIdbq7lBnHEt hu0dgDtMe+M7A+NGciXzT088Qxd7+ld1gI/fV3s/VF XAF/YtKjdr24Rg9cV9+qiX2TblDghoz0vwUuX145pyv76uq2o7MtV5V5Z9gZ+6aegJk1QuSD8QxFIp6P Jl23SIpa0M3/vG97985s0eu1uH4mk9Plx8ewP5+Bv8AD/AP+Fmno20QROxo1Z2UcXZ1+g6bQ86jvp+jv o6+m/kE845H699KtY5Ndv49nhL8H20eHc/WKQvSD4y W806Xvym2r408ug1i+InC1jTti+FKUCai5y3MbrCvv0LxA9x9xs4wb/rhew7P/8m3jh9DuSa9garzEcx hoqk0y2J5Gd25x2ny+2Zxsdmi1jay1nvLu+srxT2Z484sCT/8vigDCu0gHq0c+I7qc0TRtjBIxa0gR8M A/UNjM+cK2UhwC+b8ttu9Tvr/gWON19hJ4suvnk6kq WBRq/04qB7K2+v9/L0oQ9V48VK/WS6kU1SB+s6YevEpiMA4/cY+Hxb5wm9UOk+qO+EognNac8S0mx0/M Y91F/94p7p/4J4lqUj7E/SAr7g+PT3xn6hi/xli7hn+av/8xB4rp5ut/aas78c3qa+L73B3+AH+IF8Ds n7ny2vZz038q8yA+bw79bF5SjMZb/ifPF3Px+9J/fL UetD0uz2+57b/3KBcuSq2c91Hk/W7/xDzl5e11f5Nv8uH/gH/WI9BEHr9CQ+KWT72DVdIw5mk+45/bKN 4UO5geLjm86W5R+lb/oTt5FWGcEwdwNv/GvfqHdvfVfmf+tb6QA/wD+jv+H294e64BoSt3Y/p05K8d00 q5LDtV+TcRmln6r2zTGI+6Snpk8SdzkeOxs56p6u8V cv/zcEQU6DGljKDyHR4j/6ephbzn2l+ahH2pGw604a919/ji6S5r6H1dQ6Rh6LwXunJHdF82W94V58nQ B6gx45C0q+gI/xynp/wdJ+SLiFR8l/yrqn/oalfQc75512Kf6tsPpZO2AWyiGa0Ib3Y/zFvtTo0C/wez 4y7/zWCF2p7D2V6dixOM/AX+Mr4RDwH34m8ECE74Mm P1919jZmEq+Ch18MKGR/4Pd+t+4t75F5lT/t28wV8iO+4PkF/gK/828O4lsAerVmDkwqT7A8I7PDq/JK W6cD/V6fs7Ov0m7qktw7qtQ/VdsgNGl5Qa1Jm2Qf0Ii83e5Ozh8g8cpORj7/SFR9ha00Xd7+x6I3QZp+ g9Mk6GfoIhKWkuz4N6H1qsW/Rxdv8ND27K9ne+z0es CRzr74ni+z9Rz8pE2yX1mq1ii9Fwcwxis+B/U9qO/p+vro9a+n/eq2PR/zkf7Y7Cg93vL4e5/eL/Ox8L win+6/Prr/+iOnDOyHu2Q/wQ/wA/zzjcM+2t7us/VJT/3q6oGe+tVLWz/T+lRKqm101foxz/uvY3/QsT /os8+xYh72U606e15hd/JZ9ps0yW1GG6F/wG/7s+N8 u+E4vTqnMy6bI0q7TQr/6y+Xtk+17Z1gU4/f8P+WpnJC8zhTzYR/TjSw6jCKoIczTum/zlxCqqzk/tuc Fwnr+AqXrnIHHOvK1HAi9/pLl22l4I42prFgcU0I2Aq/VfrA+ZZ7OsaA88D+G9/mShXE6Gxn0PYt1dyS g9f2Ds7X0477rk7w+CufHa/oKP3TeyhfDy4Tv1E+6j s5IgZpKG+vC58svN1dySfy5WUmrurvlQ/dFCI1QsV5o1xwGI8UouCP+TIxjf478hceh/9Tuaf0zCW/5Q vfb/lXeXy+hS2ck7V5R2/+dfC7fj2deq1hL/8qsQ6//tU7/n2/3boU9lMuzkk/knwG6/mCW8+PvOLb83 z75mVe/lVe2/1iz59un/X/163jkbzir+rYXmyJX//q O7YXT+KIv3LH+3X0Z+94Bvf+H3n6V/yelW2PPzeOufK4iIVWhjzoe+ir4659L+V21s7RnKeDWhyP/yOs QugAV982/CEbv0EOTu5rk1ZsdtipSX6VD/hXDv/Q9R007zp0F47kF/+jda85p1+H43Tb23/dGY5g15Y9 MX0Ni1HjEa4/yqKm1zZ+swO/3kg2qwZukL56/dej13 8d+OAhvq1C3399joFB1jSZsf427V34xg+On54f+ZGBY+jx/z0db+ZnfvNKP/PDVfz0/hQ/vT/FT+Oxfn p/ymVm//Nvbv9AGPe0yyV83mco62dyIv954E0437Yp8qR4985QH141ec6Y4ID3Tt8FviZ1gaTKlggaM/ heN1bw1NtqCErmX2050L8d1VDupdpT+GY4or9O829+ HE6fcQ3mE02b0JD04FMI/OodQ7+g7/cxbfgHD3kImv0Sipn8/qDXj1lm8wmcLcxeLcp9+LiQqzq2ih+y t43ZZjYHw6M/rdL130kO10gHQaiDRa3TE5Ie1W/o23/eWB/cWB/cWB/d8aWp7Bo57h4Wm/Z66E7/6h1/ /u1O/yr12D+4Ed++Z/+R9ap8uc13VQVio7Kr9/7QPX y81zBhduvaa6b2+Rmjs536GjSe03+UEyg/sX27r5ogtVLl0Zo9Yf4x6ZH2li9Cyc/39+o87645J6vy1S ehvsugN+o9vW1J7P3l2I/oA+ejvqv/v3u1/8za95j94CyzC87/hvt2vK55ho2L68j0f1jFXuuy29ts8K v/u63/X6lnj3uX1/1oF3q1Bxg2J/us4e3l3gq1McJW tw/oBXr0Z/hXG/7Vhn+1He/Lr775O33b8/063i/8qw3/avvG8/G30MmS9vZ05ErD8971hkB9q83f0o71 fje+343vF/7Vhn+1N+q7Ud+N+j652659y/F+V15reiel322N6ptme/bu9d+d/kI68zDvG310SqnGz9Zs iMFEiIWWgnZ5K+ef4Xs9c0w5r4O86Ir23D94K9w3A9 iC63CfdLuE3+3TeM7G+uA+GK8O/rrDgI23F1/al5XB23cQA/+jg//RMZzvuK/9nWw02Za1ta/YiG/fp+ Y85hu4sVI+Fdg/PRMzWmNTkuGbxY8tb/kFqah5WSU+KhB/QkNdx6nTA9rRqP7Lyy/H6Pl+jJ7vR+JXM4 87fiMy/dyWxcq5wpHKJAswM7w2gBfQxyLF3/2Q7s+B +VnNJh0A+Kuvr28bl61jOUaId2E0i8rP7gzlt+FA12x0aE9r6oGhk1YMyFCy5Re6B/oJ/YK+481CG9+I wq/ybNQfGf1BqFXP01YyOE5XWp9E2Q7Jvs9rCx1mnZm/Crphh4SMg3+/NDK+/eIGkeuDea+7AikQHHd5 daAS8k0EPmjT0XEHnPtpsf0+xz+05jZcy5YP4oj/zh eyjnN/+EnM+XVhwlvKtgf1b7+544vySw6e5K/d+Uhc/fl48wT9gmOhb/V+nEj/ZvclqhwqtO9E/KtY7W /E0uhYBUh54/hTE7O1fjJp6xsAkr07yH5buP0uXf/PYT0+n5F7hn1NZ5ocpSLNew0vhBN/O7yRd0Km6S vKMdy3/frkl82fVWk+BxlRk3F3hWiG/xdXS9x9WpI2 jM/e6wuB+PbA+mBgfTC8/0fhC+hacA8938A79Sw+Mrzj+cM3zg+uW9Ro4Ew+MxnJT1Lg3Bk0AWrkW2D6 /Tw00raF2Anh7XxlruMRu12nt/AC6Cugw2vrvDJCcN4umaunlR20u+d18gNzr70/du+ug342zZJZH++O 6Pl+cWP8JNWhB4C4A50o6VU4y1pfAWG4T0TBjN7Csy PeoXfoG9+P7I64Yh8qUzXgNEoDebv5dNivjlKtLH/Mn4xOPP/qO4Z+4zNtgHNdx0iOo/JHYl16g1F6d9 PiV9n+iV+9Y+gD+o1oMGglxP5/7/7hynJ5q7b0taYkLitrAA6fiA2+/fZU/NW8x/P7r53R+YMGvQ1qsE +v8hGrAz8HnfZZG/Qb+vYnz+jx6oyA/kDf+MaRXt8/ 0t/vkf5+j7T/tNWajnjtIEK2J7XwXW9H5VZYDiSM8Gknw3u47GT19LR39LO35GD79Eq/Xv8G2Fe4I0+i snZwhnG9ohL9F+66sYD35gM+/QC/OsCvjqK+cein3txuy3mwxoToQYxI1xN+gJ64Mae4Z+S/OdYsU4wj 9IrzJ/QT+yD1td9iuzZ5RxGrai5giu8jyv0o/9WZge cPlN/z/MNnmhyz99LNKvEF8M7eLPB5g2XzmpO91zqW7kuvv94qPIrhp7l3/Ngct23fz7MgancomDBiN/ 56Knd9CfwKb8fmx/b6is6dzPS1P+KTm5zx5/0px3o+dMBcVuR0Czbun6dcUL3qVX6thJ27hgIF+7WAHt +vob7e/eFQtxMfNze14/ePK/QKffuTB/sHD/YPHuwf ME5Oi48P+mL/4MH+gRJ0kdS/6sC/Ooi/Ooi/Ooi/Ooi/Orv3O5+K4CsmeG5zo0P1gdz7Z5k7/tBT/lUe G/KUlx41LxnvRA/6V+8Y+oA+1XdDj3ivbIInN8adRX/vNUvq9TS/2tT32ST+oTMeq0Tp/RM9/b0y5Lv7 1hx9r6B96Yw4b5v/Eqir9zlIoy08BA6P79Vn3to0ru 9Iw5FskoGeGp14g+f75/R8/5wF/YK+8+ec0/q5tkf890mOA21fM+/6jaeSxue54dRf3+C+Xd8/d6MB2Z 1NR0JoL+Er60/Q7yY/4Zs1/zq90rzN/AkGYdGyaLGvKj/ha8M/wfls/bb/tM0LdoQaXYhZ8zwA1kZeHZ I8SmtV5SQ2h0+g30LsT/mbHE8IJdwC15coEmQwNQKq VQG/a0nKT3sqz5hlqapPO9MeXQBEV2dMTZMb/D7xTE/bX7052ZZsB7DoDsG88ynKwl36S2k1wSuoLDuB zD9ox4YImtJS40v4lFv9EILcL+whJn8C+2TI9N0bQBx/4RsJ/bXHAS6PLsyRbt1t8LkOzzOxZqxa2iB+ iS28LxGiWswfk2L/bv6Nb3QlvPpJouJmOpqzwVYkcZ xPVqAE7PzNl5Uv0mQSLgoRMnfMod4qR4VQACcvwF6YtPPZCYFOZdzIIbxOnH9i6J5QM9D6SiLuzjLVTP 7ltLR7/hPQewGQ/XB8uZZekZQZaDE328lXh0K1m4G3AqMd6GCGN4Xf0grLxnqKd0eo6/aVTVr94m/7P8 G/ie9P+RgBorASsA8ltIR/SyOoS1LGl2DFPDqMDETu jYDsS0grV2ws+Q8SGvQgTn+XVSabawgpRP1eJgK7Nk6Q8sQ4S1nYC92jbERPOGHhxqAQR+O5A2OCkC5/ uUyyPZdJnxtCEqbh5Z1SrzuMSkQY5vyPpiQ96c24iv1SUVgf7hoZ+7wUM0T9ue5zd0BIIkLhtrTHO5eZ dFjcBH3C7n9C8VaO7jXMa20/AT0++C1gp+Mva/igQI hL0cGekjbnSFED7pwdrkKD/UHythdGeLS6XIdAB4rUnMc+Fw7/C4f/BQTn/wT8Fw7/E5kgiF4K/8JBSt siGYgbXNOxkg20QmJ0/wKxGwx5GF7TR7QlomN9qvLp415uHSyKS9ThSmUVnIZwpWIQ8soUeP5g1LvcyF 3wqQ/bienBaTaGDhGsk83ThINVLoVOejsucxOGtDS3 ERJBN3Fb/uqHa3RekYPpLPjst4GkFaKaY3R8OufmCX5CTCAiaT8twT+B3QAuEb2euno8IZjswe9j5UAL /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) Carbon dioxide, total [Moles/volume] in Serum or Plasma 26 mmol/L 22 -31 [facility] ([facility]) Anion gap 3 in Serum or Plasma 6 mmol/L 7-16 [facility] ([facility]) Urea nitrogen/Creatinine [Mass Ratio] in Serum or Plasma 16.2 RATIO 10.0-20.0 [facility] ([facility]) Creatinine [Mass/volume] in Serum or Plasma 1.36 mg/dL 0.80-1.30 [facility] ([facility]) Urea nitrogen [Mass/volume] in Serum or Plasma 22 mg/dL 7-24 [facility] ([facility]) Calcium [Mass/volume] in Serum or Plasma 7.6 mg/dL 8.4-10.2 [facility] ([facility]) Glomerular filtration rate/1.73 sq M.pre dicted [Volume Rate/Area] in Serum or Plasma by Creatinine-based formula (MDRD) 53 ml/min/1.73m2 [facility] ([facility]) Glucose [Mass/volume] in Serum or Plasma 127 mg/dL 70-99 [facility] ([facility]) Glomerular filtration rate/1.73 sq M pre dicted among blacks [Volume Rate/Area] in Serum or Plasma by Creatinine-based formula (MDRD) Laboratory test result [facility] ([facility]) GFR Interpretation Laboratory test result [facility] ([facility]) <content></content>
<content> </con tent>
<content>NORMAL KIDNEY FUNCTION</content>
<content> OR MILD DISEASE - GFR >OR= 60</content>
<content>CHRONIC KIDNEY DISEASE - GFR 15 - 59</content>
<content>RENAL FAILURE - GFR <15</content>
<content> </content>< br/><content>Est. GFR calculation based on the MDRD</content>
<content>study equation, which assumes a steady</content>
<content>state for creatinine. Est. GFR should not</content>
<content>be used for medication dosing.</content>
<content></content> ID Date Data Source [id number] 01/21/2020 11:10:00 AM EDT [facility] ([facility]) Name Value Range Interpretation Code Description Data Daphney rce(s) Supporting Document(s) Leukocytes [#/volume] in Blood by Automated count 10.5 10*3/uL 4.1-11 .0 [facility] ([facility]) Erythrocytes [#/volume] in Blood by Automated count 4.04 10*6/uL 4.60 -6.10 [facility] ([facility]) Hemoglobin [Mass/volume] in Blood 12.9 g/dL 13.5-18.0 [facility] ([facility]) Hematocrit [Volume Fraction] of Blood by Automated count 39.0 % 4 1.0-53.0 [facility] ([facility]) Erythrocyte mean corpuscular volume [Entitic volume] by Auto mated count 96.6 fL 80.0-95.0 [facility] ([facility]) Erythrocyte mean corpuscular hemoglobin concentration [Mass/volume] by Automated count 33.0 g/dL 32.0-36.0 [facility] ([facility]) Erythrocyte distribution width [Ratio] by Automated count 14.3 % 10.5-14.5 [facility] ([facility]) Erythrocyte mean corpuscular hemoglobin [Entitic mass] by Automated count 31.9 pg 27.0-32.0 [facility] ([facility]) Platelets [#/volume] in Blood by Automated count 146 10*3/uL 150-450 [facility] ([facility]) Platelet mean volume [Entitic volume] in Blood by Automated count 8.9 fL 7.1-10.7 [facility] ([facility] [place] ID Date Data Source [id number] 01/21/2020 11:59:34 AM EDT [facility] Name Value Range Interpretation Code Description Data Daphney rce(s) Supporting Document(s) SODIUM 142 mmol/L (136-145) [facility] POTASSIUM 4.0 mmol/L (3.6-5.2) [facility] CHLORIDE 110 mmol/L (100-108) [facility] CO2 26 mmol/L (22-31) [facility] ANION GAP 6 mmol/L (7-16) [facility] UREA NITROGEN 22 mg/dL (7-24) [facility] CREATININE 1.36 mg/dL (0.80-1.30) [facility] BUN/CREAT RATIO 16.2 RATIO (10.0-20.0) [facility] GLUCOSE 127 mg/dL (70-99) [facility] CALCIUM 7.6 mg/dL (8.4-10.2) L [facility] GFR 53 ml/min/1.73m2 (>59) L [facility] GFR ( AMER) >60 ml/min/1.73m2 (>59) [facility] GFR INTERPRETATION [facility] --NORMAL KIDNEY FUNCTION OR MILD DISEASE - GFR >OR= 60CHRONIC KIDNEY DISEASE - GFR 15 - 59RENAL FAILURE - GFR <15 Est. GFR calculation based on the MDRDstudy equation, which assumes a steadystate for creatinine. Est. GFR should notbe used for medication dosing. ID Date Data Source [id number] 01/21/2020 11:31:38 AM EDT [facility] Name Value Range Interpretation Code Description Data Daphney rce(s) Supporting Document(s) WBC 10.5 10*3/uL (4.1-11.0) [facility] RBC 4.04 10*6/uL (4.60-6.10) L [facility] HGB 12.9 g/dL (13.5-18.0) [facility] HCT 39.0 % (41.0-53.0) [facility] MCV 96.6 fL (80.0-95.0) [facility] MCH 31.9 pg (27.0-32.0) [facility] MCHC 33.0 g/dL (32.0-36.0) [facility] RDW 14.3 % (10.5-14.5) [facility] PLT 146 10*3/uL (150-450) L [facility] MPV 8.9 fL (7.1-10.7) [facility] ID Date Data Source [id number] 01/21/2020 05:03:00 PM EDT [facility] DATE OF EXAM: 01/20/2020RETROGRADE PYELO [...] indicated. D7End of diagnostic report for accession: [id number] Interpreted: Juvenal Elmore MDTranscribed: 01/21/2020 05:02 PMSigned: 01/21/2020 05:03 PM Juvenal Elmore MD -------- [facility] ACC # [id number] [facility] # [id number] Name Value Range Interpretation Code Description Data Daphney rce(s) Supporting Document(s) ID Date Data Source [id number] 01/21/2020 06:59:00 AM EDT [place] [address] [facility] [facility], [place] [address]NWSECT[place] NAME: JOSE VILLATORODATE OF : 1955REPORT: OPERATIONPATIENT NUMBER: [id number] STATUS: OF ADMISSION: 01/20/2020DATE OF DISCHARGE:ROOM:DATE OF PROCEDURE: 01/20/2020PREOPERATIVE DIAGNOSIS: Right ureteral stone.POSTOPERATIVE DIAGNOSIS: Right ureteral stone.PROCEDURES PERFORMED:1. Rigid cystourethroscopy with right stent placement.2. Professional interpretation of radiologic images.SURGEON: FRAN Aguilera HISTORY AND REASON FOR PROCEDURE: This is a very [id number] gentleman with two separate right mid ureteral [...] prepped and drapedin standard sterile fashion. A 22-Vietnamese 30-degree rigid cystoscope wasinserted under direct vision [...] and the ureteral catheter wasremoved and a 6-Vietnamese 26 cm double-J stent was placed in [...] double-Jstent overlying the right renal pelvis.DRAINS: Right 6-Vietnamese 26-cm double-J stent with no string attached.COMPLICATIONS: None.ESTIMATED BLOOD LOSS: Minimal.SPECIMENS: None.DICTATED BY: JOSSELIN Aguileraictated: 01/20/2020 19:36DT: 01/20/2020 19:41Job #: [id number]: [facility] computer generated reports are not confirmed orauthenticated unless they are signed by the providerElectronically Authenticated by:RAJI WYNNE MD On 01/21/2020 06:59 AM EDT Name Value Range Interpretation Code Description Data Daphney rce(s) Supporting Document(s) ID Date Data Source [id number] 01/20/2020 01:20:00 PM EDT [facility] ([facility] [place]) Name Value Range Interpretation Code Description Data Daphney rce(s) Supporting Document(s) Leukocytes [#/volume] in Blood by Automated count 15.5 10*3/uL 4.1-11 .0 [facility] ([facility]) Hemoglobin [Mass/volume] in Blood 14.3 g/dL 13.5-18.0 [facility] ([facility]) Erythrocytes [#/volume] in Blood by Automated count 4.47 10*6/uL 4.60 -6.10 [facility] ([facility]) Erythrocyte mean corpuscular volume [Entitic volume] by Auto mated count 97.1 fL 80.0-95.0 [facility] ([facility]) Hematocrit [Volume Fraction] of Blood by Automated count 43.4 % 4 1.0-53.0 [facility] ([facility]) Erythrocyte mean corpuscular hemoglobin [Entitic mass] by Automated count 32.0 pg 27.0-32.0 [facility] ([facility]) Platelets [#/volume] in Blood by Automated count 172 10*3/uL 150-450 [facility] ([facility]) Erythrocyte distribution width [Ratio] by Automated count 14.5 % 10.5-14.5 [facility] ([facility]) Erythrocyte mean corpuscular hemoglobin concentration [Mass/volume] by Automated count 32.9 g/dL 32.0-36.0 [facility] ([facility] l [facility]) Platelet mean volume [Entitic volume] in Blood by Automated count 9.3 fL 7.1-10.7 [facility] ([facility]) ID Date Data Source [id number] 01/20/2020 01:20:00 PM EDT [facility] ([facility]) Name Value Range Interpretation Code Description Data Daphney rce(s) Supporting Document(s) Sodium [Moles/volume] in Serum or Plasma 142 mmol/L 136-145 [facility] ([facility]) Carbon dioxide, total [Moles/volume] in Serum or Plasma 26 mmol/L 22 -31 [facility] ([facility]) Potassium 4.7 mmol/L 3.6-5.2 [facility] (Associ ated [facility]) Chloride [Moles/volume] in Serum or Plasma 108 mmol/L 100-108 [facility] ([facility]) Creatinine [Mass/volume] in Serum or Plasma 1.50 mg/dL 0.80-1.30 [facility] ([facility]) Anion gap 3 in Serum or Plasma 8 mmol/L 7-16 [facility] ([facility]) Urea nitrogen [Mass/volume] in Serum or Plasma 25 mg/dL 7-24 [facility] ([facility]) Urea nitrogen/Creatinine [Mass Ratio] in Serum or Plasma 16.7 RATIO 10.0-20.0 [facility] ([facility]) Glucose [Mass/volume] in Serum or Plasma 147 mg/dL 70-99 [facility] ([facility]) Glomerular filtration rate/1.73 sq M pre dicted among blacks [Volume Rate/Area] in Serum or Plasma by Creatinine-based formula (MDRD) 57 ml/min/1.73m2 [facility] ([facility]) Glomerular filtration rate/1.73 sq M.pre dicted [Volume Rate/Area] in Serum or Plasma by Creatinine-based formula (MDRD) 47 ml/min/1.73m2 [facility] ([facility]) Calcium [Mass/volume] in Serum or Plasma 8.6 mg/dL 8.4-10.2 [facility] ([facility]) GFR Interpretation Laboratory test result [facility] ([facility]) <content></content>
<content> </con tent>
<content>NORMAL KIDNEY FUNCTION</content>
<content> OR MILD DISEASE - GFR >OR= 60</content>
<content>CHRONIC KIDNEY DISEASE - GFR 15 - 59</content>
<content>RENAL FAILURE - GFR <15</content>
<content> </content>< br/><content>Est. GFR calculation based on the MDRD</content>
<content>study equation, which assumes a steady</content>
<content>state for creatinine. Est. GFR should not</content>
<content>be used for medication dosing.</content>
<content></content> ID Date Data Source [id number] 01/20/2020 02:07:19 PM EDT [facility] Name Value Range Interpretation Code Description Data Daphney rce(s) Supporting Document(s) SODIUM 142 mmol/L (136-145) [facility] POTASSIUM 4.7 mmol/L (3.6-5.2) [facility] CHLORIDE 108 mmol/L (100-108) [facility] CO2 26 mmol/L (22-31) [facility] ANION GAP 8 mmol/L (7-16) [facility] UREA NITROGEN 25 mg/dL (7-24) H [facility] CREATININE 1.50 mg/dL (0.80-1.30) H [facility] BUN/CREAT RATIO 16.7 RATIO (10.0-20.0) [facility] GLUCOSE 147 mg/dL (70-99) H [facility] CALCIUM 8.6 mg/dL (8.4-10.2) [facility] GFR 47 ml/min/1.73m2 (>59) L [facility] GFR ( AMER) 57 ml/min/1.73m2 (>59) L [facility] GFR INTERPRETATION [facility] --NORMAL KIDNEY FUNCTION OR MILD DISEASE - GFR >OR= 60CHRONIC KIDNEY DISEASE - GFR 15 - 59RENAL FAILURE - GFR <15 Est. GFR calculation based on the MDRDstudy equation, which assumes a steadystate for creatinine. Est. GFR should notbe used for medication dosing. ID Date Data Source [id number] 01/20/2020 01:38:40 PM EDT [facility] [place] Name Value Range Interpretation Code Description Data Daphney rce(s) Supporting Document(s) WBC 15.5 10*3/uL (4.1-11.0) H [facility] RBC 4.47 10*6/uL (4.60-6.10) L [facility] HGB 14.3 g/dL (13.5-18.0) [facility] HCT 43.4 % (41.0-53.0) [facility] MCV 97.1 fL (80.0-95.0) H [facility] MCH 32.0 pg (27.0-32.0) [facility] MCHC 32.9 g/dL (32.0-36.0) [facility] RDW 14.5 % (10.5-14.5) [facility] NAIR Y PLT 172 10*3/uL (150-450) [facility] [place] [facility] MPV 9.3 fL (7.1-10.7) [facility] ID Date Data Source [id number] 01/20/2020 01:00:00 PM EDT [facility] ([facility]) Name Value Range Interpretation Code Description Data Daphney rce(s) Supporting Document(s) Color of Urine by Auto Laboratory test result [facility] ([facility] [place]) Clarity in Urine by Refractometry automated Laboratory test result [facility] ([facility]) pH of Urine by Automated test strip 5.5 5.0-7.5 [facility] ([facility]) Specific gravity of Urine by Refractometry automated 1.017 1.003 -1.030 [facility] ([facility]) Leukocyte esterase [Presence] in Urine by Automated te st strip Laboratory test result Abnormal (applies to non-numeric results) [facility] ([facility]) Nitrite [Presence] in Urine by Automated test strip Laboratory t est result Abnormal (applies to non-numeric results) [facility] (Asso ciated [facility] Application [facility]) Protein [Mass/volume] in Urine by Automated test strip Laborator y test result [facility] ([facility]) Glucose [Mass/volume] in Urine by Automated test strip Laborator y test result [facility] ([facility]) Ketones [Mass/volume] in Urine by Automated test strip Laborator y test result [facility] ([facility]) Urobilinogen [Units/volume] in Urine by Test strip 1.0 mg/dL 0-1.0 [facility] ([facility]) Hemoglobin [Presence] in Urine by Automated test strip Laborator y test result Abnormal (applies to non-numeric results) [facility] ([facility]so [facility]iated [facility]) Bilirubin.total [Presence] in Urine by Automated test strip Laboratory test result [facility] ([facility]) ID Date Data Source [id number] 01/20/2020 01:00:00 PM EDT [facility] ([facility]oc [facility]) Name Value Range Interpretation Code Description Data Daphney rce(s) Supporting Document(s) Leukocytes [#/area] in Urine sediment by Microscopy hi gh power field Laboratory test result 0-5 [facility] ([facility]) Epithelial cells [#/area] in Urine sediment by Microsc opy high power field Laboratory test result [facility] ([facility] [place]) Erythrocytes [#/area] in Urine sediment by Microscopy high power field Laboratory test result 0-2 [facility] ([facility] [place]) Bacteria [#/area] in Urine sediment by Microscopy high power field Laboratory test result [facility] ([facility]) ID Date Data Source [id number] 01/20/2020 01:00:00 PM EDT [facility]ated [facility]) Name Value Range Interpretation Code Description Data Daphney rce(s) Supporting Document(s) Bacteria identified in Urine by Culture Laboratory test result [facility] ([facility]) SPECIMEN DESCRIPTION MIDSTREAM UR INE,CLEAN CATCH CULTURE [...] SUSCEPTIBLE TRIMETH/SULFA /152 RESISTANT CIPROFLOXACIN >=8 RESISTANT ID Date Data Source [id number] 01/22/2020 08:14:42 AM EDT [facility] SPECIMEN DESCRIPTION MIDSTREAM UR INE,CLEAN CATCHCULTURE [...] rce(s) Supporting Document(s) ID Date Data Source [id number] 01/20/2020 02:04:10 PM EDT [facility] Name Value Range Interpretation Code Description Data Daphney rce(s) Supporting Document(s) URINE WBC (0-5) [facility] URINE RBC (0-2) [facility] EPITHELIAL CELLS 2+ [HPF] [facility] BACTERIA 1+ [HPF] [facility] ID Date Data Source [id number] 01/20/2020 01:27:50 PM EDT [facility] Name Value Range Interpretation Code Description Data Daphney rce(s) Supporting Document(s) COLOR [facility] APPEARANCE [facility] SPEC GRAV URINE 1.017 (1.003-1.030) [facility] PH URINE 5.5 (5.0-7.5) [facility] LEUK ESTERASE 2+ (NEG) A [facility] NITRITE URINE (NEG) A [facility] PROTEIN URINE (NEG) [facility] GLUCOSE URINE (NEG) [facility] KETONE URINE (NEG) [facility] [place] UROBILINOGEN 1.0 mg/dL (0-1.0) [facility] [place] BILIRUBIN URINE (NEG) [facility] BLOOD/HGB URINE 3+ (NEG) A [facility] ID Date Data Source [id number] 01/20/2020 12:52:00 PM EDT [facility] ([facility] [place]) Name Value Range Interpretation Code Description Data Daphney rce(s) Supporting Document(s) Comment Laboratory test result [facility] ([facility] [place]) THE [place] FDA HAS MADE THIS TEST AVAILABL E UNDER AN EMERGENCY USE AUTHORIZATION (EUA) FOR THE DETECTION AND/OR DIAGNOSIS OF THE VIRUS THAT CAUSES COVID-19. EMAILED TO IC AT 0260 ON [id number] BY [id number]. Covid19 Result Laboratory test result [facility] ([facility] [place]) THIS ASSAY AMPLIFIES AND DETECTS THE TARGET RNA USING REAL-TIME PCR. NEGATIVE 2019_NCOV RT-PCR RESULTS DO NOT PRECLUDE 2019_NCOV INFECTION AND SHOULD NOT BE USED THE SOLE BASIS FOR PATIENT MANAGEMENT DECISIONS. Specimen source [Identifier] of Unspecified specimen Laboratory mikki t result [facility] ([facility] [place]) Employed In [facility] Laboratory test result [facility] ([facility] [place]) First Test Laboratory test result [facility] ([facility] [place]) Symptomatic Laboratory test result M EDENT ([facility] [place]) Icu Laboratory test result [facility] ([facility] [place]) Patient was hospitalized because of this condition Laboratory test re sult [facility] ([facility] [place]) Illness or injury onset date and time Laboratory test result [facility] ([facility] [place]) Laboratory test result [facility] ([facility] [place]) Congregate Care Set Laboratory test result [facility] ([facility]) ID Date Data Source [id number] 01/20/2020 12:52:00 PM EDT [facility] Name Value Range Interpretation Code Description Data Daphney rce(s) Supporting Document(s) SARS coronavirus 2 RNA [Presence] in Res piratory specimen by ASCENCION with probe detection Lab [facility] This lab was reported by [facility]. ID Date Data Source [id number] 01/20/2020 03:17:15 PM EDT Lab [facility] Name Value Range Interpretation Code Description Data Daphney rce(s) Supporting Document(s) SPECIMEN DESCRIPTION Lab Allia nce nba ANIRYoni COVID19 RESULT (NDET) Lab [facility] THIS ASSAY AMPLIFIES AND DETECTSTHE TARG ET RNA USING REAL-TIME PCR.NEGATIVE 2019_NCOV RT-PCR RESULTS DONOT PRECLUDE 2019_NCOV INFECTION ANDSHOULD NOT BE USED THE SOLE BASISFOR PATIENT MANAGEMENT DECISIONS. COMMENT Lab [facility] UNDER AN EMERGENCY USE AUTHORIZATION(EUA ) FOR THE DETECTION AND/OR DIAGNOSISOF THE VIRUS THAT CAUSES COVID-19.EMAILED TO IC AT [id number] ON [id number] BY [id number]. FIRST TEST Lab Raymond EMPLOYED IN [facility] Lab Davidia nce [facility] SYMPTOMATIC Lab Claus arango [facility] DATE OF SYMPT ONSET [facility] ICU [facility] CONGREGATE CARE SET [facility] ID Date Data Source [id number] 01/20/2020 11:14:00 AM EDT [facility] ([facility] [place]) Name Value Range Interpretation Code Description Data Daphney rce(s) Supporting Document(s) Bacteria identified in Urine by Culture Laboratory test result [facility] ([facility] [place]) SPECIMEN DESCRIPTION MIDSTREAM UR INE,CLEAN CATCH CULTURE [...] CIPROFLOXACIN >=8 RESISTANT ID Date Data Source [id number] 01/22/2020 08:23:27 AM EDT [facility] [place] - CORE SPECIMEN DESCRIPTION MIDSTREAM UR INE,CLEAN [...] rce(s) Supporting Document(s) ID Date Data Source [id number] 01/20/2020 10:51:00 AM EDT [facility] ([facility]oc iated [facility]) Name Value Range Interpretation Code Description Data Daphney rce(s) Supporting Document(s) Glucose [Presence] in Urine Laboratory test result [facility] ([facility] [place]) Protein [Presence] in Urine by Test strip Laboratory test result [facility] ([facility]) Blood [Presence] in Urine by Visual Laboratory test result [facility] ([facility] [place]) Ua Leuko Laboratory test result ME [facility] ([facility]) Ua Nitrite Laboratory test result ME [facility] ([facility]) Color of Urine Laboratory test result [facility] ([facility]) Ketones [Presence] in Urine by Test strip Laboratory test result [facility] ([facility]) Clarity of Urine Laboratory test result [facility] ([facility]) pH of Urine by Test strip 5.5 5.0-7.5 [facility] ([facility]) Ua Specific [place] 1.020 1.003-1.030 MEDE NT ([facility]) Urobilinogen [Mass/volume] in Urine by Test strip 0.2 E.U./dL 0.0-1.0 [facility] ([facility]) Bilirubin.total [Presence] in Urine by Test strip Laboratory test res ult [facility] ([facility]) ID Date Data Source [id number] 10/24/2019 07:45:00 AM EDT [facility] [place] Name Value Range Interpretation Code Description Data Daphney rce(s) Supporting Document(s) Colonoscopy [facility] HFAHOy5lTrVEMuIjQSPrVyoAHYjlLJjoRIZaU9Q3GRsbAv8GZCnyvoEhNCQxKf8+DZIwRX7sfd7jIIJw gMy 5hZBDcKcpuE0XfFSPdo67DUBKmSVaWDhLaYlZsBbOnVIisIRSaOHX3HdIrFfioPH0eAKX8VQBsXMfxMV EuOHlsWQG8DtgpQD7pPDueQKvdOk8XPR6vf8HuJVHdXNDdHyvBNYflKFzuBRLxHSVaUZFzC437xqNlYd 0SrSLxHCv8PQJfUdG0WYJsXuA7ADUpHy6tQoTkj1Uy L7MxARx8V5aJNshhC3FgVWssAT5bBFT6QSMbMt2TkOwgNUyvGYIFP1zkHhUaUODzGYTKOh7+Pj4+DWVu EF3inv00CSFfi3ElHCa3C0A4cXJvC0BpS1LbAZRmsSSOw4mbIjDfSQA4WEEsKcgwWP3MEBRffYHeGYYh AJgdPX1uxhCemZT4CN4SmUdsALYfKNRSRu6+Pi9QYX OukkVeYoKdIXYgD45abGLipJKqRzigSFCLIW7+CJTrSZ6waw39AQMgq9AbHQl7J4hzwsz5oEXgBbB5XW PbDyEbHUExFK2fDA7PoQZ5fYNkOI8FoACjDI8QoPIwZJ7VF0ZnZOY5W3MxoWNuvyRnD8IxJUFpZZRah6 GoBX9HY1ITNPOuHEZdB6NseE7fA9JqG4UmG0Gdsmwl AVWXQm4DlFH0vVRdPANeN0owpGkbuJAdAIlzR3WdzCVYXNHJl63yt85pdyDkKQ4+i4TeKNBxMMn33te5 ZVAcX/riTQLUAgr6DQqgGNZhSdHJno4eH2hcVqE7MSa9OhkvxFB9U8hKyVCE1//qhno4cxj8dl/eD+/z 0FOKvx2+x0is4lTx6mCw8GXYGEcpOOQWvJTLEJHJ58 bvpFy1ISoilAuwmPsJ+QJmDFKAhECoo0uP0T3Sc3MBcpPkErM12+Zd6ohr0rne1oKu1+Lm/PccNX5xl3 ZHQyfGwCDmfEv+lvP/ZD94HGdvnIhxdmKYKmXPAxZNS+ShS0OQLWItMstNTM3lLEkDVkCqb1Bbo4D0SZ CPDXiFAAS+QgQiISEi/u31+yuQBEAEjl7S3OMVH7zU [file] 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+inEWeV/iwe0rjbzjq1m32GF+WiadZzGx2mQckmlBujCxRlRet6dPe4cHPW8DL [file] SfYxh+lwFfTsHRZlmJmlNVlikIeEXBe18IapuRjgFYwqOYm/Zq9Vl5h5i6pw7OntI6wKUQUrMmb/b/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 [file] cgfYj/QUMLV0E7WeDADPiz4m6s2QMVgCef7WC465jZHZ94eLM5c/6+6QQQCk4l0FT/Riley++vzmQnUGUM P/YShfyC/FnbxtomRO8l+vZ3QZbbJnFJDrytGe9Twr 0FgfH4er39FroXLizjml4ca5K75pROY/NqKTjv0wvQLELbqubGkYAQVxUaJmlxv5LsoCE2KUU78f/7Ua r2GpIQ+WXvkfWlmrkG7w4dmIuXoLD98nhU92SNIx999jTZJQLueKVewLYXWyXBxXO2y2/rCLUx87iIv8 Mg5iwqtWMiinExmNx9Dqfb+3Q8gNkpPva4LGIh65TC VHZlSKIEiS5k5da70GSw8O1y2kcY05+pLa5ZCQ7KU9CTdwkeXYJf4QvEjQIu/bofN9c+WR7sWmKkJSlG 4tmNvYe2eVP4P4Fcdrg3sOih7ai6ZuNnuGYwF+AyBte4HkX/XffN//ROOYF3KFt/L04YnqtvkUtwmy7E uxEN0qNgjoVZ0TQxOYlJJ8TGsHRy7Koz2MkYm9fPaw nBXm4zMqY0Yfb5EvtFbJXEh4lG/y5YY9HGG3MdygkEnCR6OUeBa/HkBea7siAgo09tIT/hgac0KglvIR J5FW8W674J4fYl+nd0Wz4QN0fncy3+dCF2NE53fGycnnnPxETsutl89trRv+rPncGB7k5it79yp6FyDx ips2JsvQwTSgtpVCLbmrTrrQXeJZ2DV9I3KMX7D8pT lUPBEG7sDmh5lgE67u+vmnRTDwe3KPuNlfsHLZni3sFQszv+rDGWELsxXZYtEhVlW3/PQ1s1xz45STwx Hbfds7MTRAQT/HPKUGW5+rT/8agHmSucOSHadkOHKX/j4JlrtLF2515wza1S3pe+HNGA20aSJ5rbw5HB IDimlZIGolWaMLnZ8pT1XHTJobz9+bhC+LjXkqhqHd uM6xhWA0/iMPyCwxpoBMpZFtQUodHGlcC+Sanjuana/lJfMfseKMTk17RYpbr7cab6yo6D9tuAgQP9zVFTSRK ORtvCypBaBsG910W7z8zCJkI2GIt6RxxyFOaGkyIbrwJJcU4Sx1msPAgkf0L7rSkCHX/lMEEgU56am5l slEvYrzClfy1mLqDvqyGgRBnsKxjFNJtfr+WQWejjv DIRECTOR SMB SALES/h2uMoI3ZsjUtP4AzhvLzd8XJG3eU+y0zM72JX1RSEao95tI9ec72mBgg5olNsC2Vs+WrlaYBc5a8x [file] 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/Yt3frXNexs6QtDov0l90vBkXSJGye9bESuojbc3QQU39T90UWeDePZysLhtSndPunzYdzsJCtoCft [file] jGunngcaMq98rd9l8csduNG6g/UNkNuryy0Fybrj/T i6d79VxRabVIoK9fiCh/kFNV+ieRAz7rnLNGN+Rk/X2buXmyT/L7NKxc/orj89R3ZPmnVlVREvYM/KyQ f/Grw+xUqKU1WIZsIjssQ2qvf9YtrWeQjJWk+lQOi3klOsOsvvcPHHVekTEDOl1el8bH3cqhxn7BWE2y +XHk47UL7N8IA4aDic0zjFM374gm/TURABASHX3p1t DF//PtGNz8HatfMF3iAkMfBorQ4mSI9dVN6tyo8f2m5gtbHIQc7bCNZ25x3jwnUPEuLXVvxJqfdAOvak JIyQ9FH1RJOTLHZ4V1AhcsClwhWrUDL3Irstx3R2PowQmXiofEHgdg6lM7wjlpht6LwUmv7fj8S/dpbU 3x40nLHn2aHecFcZpny+IvyDf6kJ/9QyrL4kPtCOKL VV5mdaqlywsFlcm1m/AgRJahrhgp2behysziL0O1UG62MU35+9BZeyXwc5+z4qw1rFUQ/6g50/YD1pw7 lpDdD0dDLFRByOoi57jEe2hmJ7wWxxXkuUzMMXMB7LgWXZIE+Q3sR8tOgUhs084FO6pmvtW1e1Moxg+i YDaQkat1wgB15S/uiICv5md1jVFMBHKojdFwcmHHjW bhVdtvcqHpXP4H1OQ9iHVrVxbh3JNGP1crVi1ErgAtX+AjMhxs8vJ57zwB96K8Fws4PIsyxe06Qf1nGv 2xrsfQMBVw5OSCU/i4rM/86OCQXl/5vH+z3BgSeyiY2UDM5qz9ElIDXoBAYsCS2hbs3uNfJuET4aom74 KN8IPW3ptEkoUtB+JzC7amNgxN3HbTu5PMNoCJVcPP q5HiThUKFiL09TN7ohJzExGR1WOV7TUY6fq7GiQPOoQFLkYE8ubx7fLwLoWH6evw66RA0KpRa2LIItN5 UzXFBxQVUci0AiY0cguxx3bVJ6FH2CNCFoMNXIRnwSFdQ4GCQFKdU7RSCKXFQ7EcRoXQXlOqEMDQVJTr A1XUOJYQOsBOzWQXZ7FEZVQkFxQIOlIoJ3YERmJBEI M0M+LD2Ev502EWMiXRCOH3khXj5sOrJoQWCiJ1p6HYQgXP6CbXJxEP3OElMpC4thRcQtVPRfBJ0+c3Ry IOGjRSq13dYyHCGfXAYMigww2xAQnzJSnEYw4oZTQWjUWuSxp0b8aqEXd/EbiHQqBpNHgCRnUTOYvMIA PFNSS9eCKtZuEHL8alFoyV4XPN2tt1JjIS5Ua1SczkF6pjVdNBw9OBhkFgBMVuZuRQ7D ID Date Data Source [id number] 10/03/2019 01:15:00 PM EDT [facility] [place] Name Value Range Interpretation Code Description Data Daphney rce(s) Supporting Document(s) Follow Up [facility] [place] YFZGSg1pOdMKIfNtARFlSceYRVqvKWaqUNBfK5L0BStcWx0XYWlrbyNqIXZgKd9+WILtCH7kux2aNHNf gMy [file] IoHeSHhm2A2bKMij3/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+vpkUMpE6R3BMAszOCDrZ8 [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] 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/DVUfl/ [file] AywRjz41E2wfwQl8qQrHdfedzwWzyRh7jmNj1UNU8XcWMwUM26dpSQqJ0IYga0ygJDidS8iobgWv/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 [file] Alexandre+cRr+hzyTZUs7W8vMxUR6J1iGzeY8fFTHV9udUz/rf2Y+D5YKuyLXB39yN/lCn4jsxhLvVELopIA/ OMRoRTar4RllJdzDFT7/pKxqf2ZuiV0o61TyqSsg/[facility]//lU8j3Y6ZmZZjnB0pV3L4beNglP34Fn9s3b [file] maria c+zlmYwC7pDmC5c2AszTMjnI/6U9h5Rp4UvlB13RM6iGlvgR6g6w/5Npk43+meJDcORW6kmcCv9MWV [file] T7fcCweOVYSJ+WejIfZBDkM71u07Z5QK/ggN7kSAn7tEgcaG1Cgv/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+hUzYEVnb35ZbDmhY/thrXnv 2770h+rUvLqqx1/P/WXaJystT37IgKb8H9395vgP8x RNL413edkZJnxAUBodOVevASiVo8YFNvDEuaydMmMf8/tU0EUyoYaqg5li7MUS8ZAk7NBQgy2dfMSw+s +VuxaC0WcTB3n3sGgXk/24NDp9Dnp5r/KGXZTW52uX90uRt3ASl4vYcfgQYPJAhFpopaI/PxFPp6vgOy DEouWYJVb4VzeGlLdOZSoNQx8kXW0l+TsgqMtL+u2Z h0VsNgJ27AuIHA1UemVVaPhsTmc9dL546MXr7ecsHRdj04leaNk4vm8VL/+51aU4GkYYNlEMtyxtDsit WVARssl8MKG3BYc/dl2O3CXSG7rZnFzwFsgkuzusZkMjvG06g7h/k7APrkPlfK43gOW72mKq1vTBizl8 4pGW4xNLkQqRlKkDLnZNGdL2j2xB2gaIfn1Yl4cf1F 4x7VXFMOKHGFEt3B95QUKWd+kLVEGZI+yvednBCbyhFyqHNH+jBlrziDe0mqZ0qfVfyca3cIZMth/zTX 4HQVAkRlzCIRsbgGLVz43qweHwn7zGhJF6ZB3bzle7XMb4upGfcSatmiqxHGsJ1oH7pRqtOCYYFDqQoS lcNlD7v6yzi1qdZFnHLO+09Kvq43e99VBZOfPOlkOa bCDZStnHxHQVvqlOywPzVdzpn7HRopSqPl8E4tOi70+kYiTJ6uYSOuv23MGH5XPh8J7UXmL7qWJQoR8R lDqYnLRd0f36AI+Er2IT+CYhjOxmv5V/snzY4Yrfpmrb8wsggRgxW1vD0N0/zLzrJw/Nvk0e9GzKXKRf zx2j4g3t/hrUGQCUt59zD2Ets/uxoRHx4VOebxhHI1 shaquille+flaMK+ZJoZFguvD9yOQvIMH+BwPMZC7naVYDoedX03X0w8hTuTmhrmujL6HR+ahI7Wka4p9LZPEq [file] VrKibyCmlK/GVth8DyXOu3tPk4WeHcCECe8jDr9ciYfyCVbuCPx8p9EoH7RODaLYvfhbmaDYYuNnJ+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 [file] TvLbx8rN6LCeIy6FZ2M+CIGARETTE VENDOR+hoqwEWzvlsKSfpibIKdvcVbZE4wlgdgOlRYIHYJdlEu/zheriin4qvtJG [file] 3TAltq8DnyWr+P/oQWfRkItR5PLGssh926h5UR+LycnUh9RmCcVE+mary beth+qBxiCbxq1eA3JWgDEe/6+IP [file] crMoaSMFGY7sYRsMijSMRRONFDTNQVJf8DN1gfumec qKLzTk3BXk/7CzjfAjI5wvgl06SmsxCHqkVELnSajOY5AqhhDI5nGPlTPCoU6eFTJeRto2IzDxZ3/Y6C dv6PtVxc6bI5VPt+5/nVoyr1+2700lcTqiwV4eTDT4TXKM46HmnztbeLoS0C815Dzvp6GwnMyIzRUCp6 AFoa+5PYGtjrd2hOEQjvAi2uJL7y1ixVgphyGqmcOk eeR7mSnLbgDhznNCKEQQhz8npqza1vhNszdQMYFvny34vzRywAQVJHuD1xlmzlNibMKMnLihkwwpa+vX pp1VEw/jg13WwOsOK3J8wFRs4QVMpOTmsuT7QBnYP1469FgqeyPVnW67l19Bpliqmc+sq8TtettSxhX1 NmlaFd0Y+VMLmbcj+radiology teacher+WTXuHBBEXOum2uod2D1wli [file] Luis Eduardo/0WpYu5OabOFpPvE7SAsQNKOMZoooHOHnMpb+WA2KxqI/SMjgerBrvoC9o2dIupmFWG/FJ3PJaFIK WIJCCUFPzbHaSJCpmuPHvofO3LZ4f3orOmy46dteWO tuqCnFf87xQLA0T9fIHx4XKGdvwdU6qGyOH9BibftupvgK/er5j4+WnsgcSTzXz+u+9otPxneu5+CMil qPvHXsOHVCMUSBIYqzu2F2mUdGKH0rOrRkLBRYQvptdrPzkWM+Ne7+wSDG7CFM5zF2cKR2fe5Z+tMX+1 ZOhrJ9S+TRaAViuSRfWa1QITifh4n/ul6O3Ex9219U c/Dj5/mOTnls+HUcNQth2oHV5rVhuqmA0cjV9WlniO0P603qVoP8fzfbf6JoFZ7xMRPrdqQXhW2+R4bW KIMwO8vlVFy0G2Ao2juMwGr9WssuGZ21MnzR6M7mlZYxpOankMMIamt5ly7f7nul24Wk1ie7b0ufQ5vj [id number] [file] [id number] ID Date Data Source [id number] 09/02/2019 10:01:00 AM EDT MEDENT ([facility] iated [facility]) Name Value Range Interpretation Code Description Data Daphney rce(s) Supporting Document(s) Urate [Mass/volume] in Serum or Plasma 4.9 mg/dL 3.7-8.6 MEDENT ([facility]) A courtesy copy of this report has been sent to [phone] Calcidiol [Mass/volume] in Serum or Plasma 31.7 ng/mL 30.0-100.0 MEDENT ([facility]) A courtesy copy of this report has been sent to [phone] ID Date Data Source [id number] 09/02/2019 10:01:00 AM EDT MEDENT ([facility] iat [facility]) Name Value Range Interpretation Code Description Data Daphney rce(s) Supporting Document(s) Urea nitrogen [Mass/volume] in Serum or Plasma 21 mg/dL 8-27 MEDENT ([facility]) A courtesy copy of this report has been sent to [phone] Glucose [Mass/volume] in Serum or Plasma 136 mg/dL 65-99 MEDENT ([facility]) A courtesy copy of this report has been sent to [phone] eGFR If NonAfricn Am 62 mL/min/1.73 MEDENT ([facility]) A courtesy copy of this report has been sent to [phone] Creatinine [Mass/volume] in Serum or Plasma 1.24 mg/dL 0.76-1.27 MEDENT ([facility]) A courtesy copy of this report has been sent to [phone] Sodium 144 mmol/L 134-144 MEDENT ([facility]) A courtesy copy of this report has been sent to [phone] BUN/Creatinine Ratio 17 10-24 MEDE NT ([facility]) A courtesy copy of this report has been sent to [phone] eGFR If Africn Am 72 mL/min/1.73 MED ENT ([facility]) A courtesy copy of this report has been sent to [phone] Carbon Dioxide, Total 24 mmol/L 20-29 MED ENT ([facility]) A courtesy copy of this report has been sent to [phone] Chloride 105 mmol/L 96-106 MEDENT ([facility]) A courtesy copy of this report has been sent to [phone] Potassium 4.6 mmol/L 3.5-5.2 [facility]) A courtesy copy of this report has been sent to [phone] Calcium [Mass/volume] in Serum or Plasma 9.4 mg/dL 8.6-10.2 MEDENT ([facility]) A courtesy copy of this report has been sent to [phone] ID Date Data Source [id number] 09/03/2019 04:06:00 AM EDT [facility] Name Value [...] mg/dL 8.6-10.2 [facility] ID Date Data Source [id number] 09/03/2019 05:06:00 AM EDT [facility] Name Value Range Interpretation Code Description Data Daphney rce(s) Supporting Document(s) Vitamin D, 25-Hydroxy 31.7 ng/mL 30.0-100.0 [facility] Vitamin D deficiency has been defined by the [place] [employer] and an Endocrine Society practice guideline as alevel of serum 25-OH vitamin D less than 20 ng/mL (1,2).The Endocrine Society went on to further define vitamin Dinsufficiency as a level between 21 and 29 ng/mL (2).1. IOM ([place] [employer]). 2010. Dietary reference intakes for calcium and D. [place]: The National Academies Press.2. Deonna MF, Dustin TERRY, Raulito LEE, et al. Evaluation, treatment, and prevention of vitamin D deficiency: an Endocrine Society clinical practice guideline. JCEM. 2010; 96(7):1911-30. ID Date Data Source [id number] 09/03/2019 08:08:00 AM EDT [facility] Name Value Range Interpretation Code Description Data Daphney rce(s) Supporting Document(s) Uric Acid 4.9 mg/dL 3.7-8.6 [facility] Therapeutic ta rget for gout patients: <6.0 ID Date Data Source [id number] 08/22/2019 12:00:00 PM EDT MEDENT ([facility]) Name Value Range Interpretation Code Description Data Daphney rce(s) Supporting Document(s) Laboratory test finding (navigational concept) Laboratory test result [facility] ([facility] [place]) ID Date Data Source [id number] 08/22/2019 12:00:00 PM EDT MEDENT ([facility]) Name Value Range Interpretation Code Description Data Daphney rce(s) Supporting Document(s) 24 hr Creatinine 1577 mg/d MEDENT ( [facility]) Source of Specimen: Urine 24 hr Calcium per 24 hr Creatinine 50 mg/g 34-196 MEDENT ([facility]) Source of Specimen: Urine 24 hr Calcium per Kilogram Body Weight 0.6 mg/d/kg MEDENT ([facility]) Source of Specimen: Urine 24 hr Creatinine per Kilogram Body Weight 12.3 mg/d/kg 11.9-24.4 MEDENT ([facility]) Source of Specimen: Urine ID Date Data Source [id number] 08/22/2019 12:00:00 PM EDT MEDENT ([facility]oc i[facility]) Name Value Range Interpretation Code Description Data Daphney rce(s) Supporting Document(s) 24 hr Chloride 158 mmol/d 70-250 [facility] ([facility] [place]) Source of Specimen: Urine 24 hr Sulfate 41 mEq/d 20-80 MEDENT (Ass ociated [facility]) Source of Specimen: Urine 24 hr Sodium 179 mmol/d 50-150 MEDENT (Asso ciated [facility]) Source of Specimen: Urine 24 hr Potassium 54 mmol/d 20-100 MEDENT (A ssociated Web Application [facility]) Source of Specimen: Urine 24 hr Ammonium 47 mmol/d 15-60 MEDENT (As sociated [facility]) Source of Specimen: Urine 24 hr Urea Nitrogen 13.42 g/d 6.00-14.00 MEDEN T ([facility]) Source of Specimen: Urine 24 hr Magnesium 121 mg/d 30-120 MEDENT (A ssociated Web Application T[facility]) Source of Specimen: Urine 24 hr Phosphorus 1.359 g/d 0.60-1.20 MEDENT ( Associated [facility]) Source of Specimen: Urine This value shows an increased risk factor of 1, where 0 is normal and 7 is extremely high. Protein Catabolic Rate 0.8 g/kg/d 0.8-1.4 NM DENT ([facility]) Source of Specimen: Urine ID Date Data Source [id number] 08/22/2019 12:00:00 PM EDT [facility]) Name Value Range Interpretation Code Description [facility] Document(s) Interpretations Collection A Laboratory test result MEDENT ([facility]ated [facility]) Source of Specimen: Urine : Urine pH [...] as noted above. ID Date Data Source [id number] 08/22/2019 12:00:00 PM EDT MED[facility] ([facility] [place]) Name Value Range Interpretation Code Description Data Daphney rce(s) Supporting Document(s) pH 5.441 5.800-6.200 [facility] ([facility] [place]) Source of Specimen: Urine This value shows an increased risk factor of 4, where 0 is normal and 7 is extremely high. 24 hr Uric Acid 0.317 g/d MEDENT ([facility] [place]) Source of Specimen: Urine 24 hr Calcium 80 mg/d [facility] ([facility] Web Application [facility]) Source of Specimen: Urine 24 hr Citrate 109 mg/d MEDENT ([facility] Web Application [facility]) Source of Specimen: Urine This value shows an increased risk factor of 5, where 0 is normal and 7 is extremely high. Urine Volume 1.98 L/d 0.50-4.00 MEDENT (Asso ciated Web Application T[facility]) Source of Specimen: Urine This value shows an increased risk factor of 1, where 0 is normal and 7 is extremely high. 24 hr Oxalate 105 mg/d 20-40 MEDENT (Ass ociated Web Application T[facility]) Source of Specimen: Urine This value shows an increased risk factor of 5, where 0 is normal and 7 is extremely high. Supersaturation CaP 0.15 0.50-2.00 MEDEN T ([facility]) Source of Specimen: Urine Supersaturation Uric Acid 0.79 MEDENT ([facility]) Source of Specimen: Urine Supersaturation CaOx 7.14 6.00-10.00 MEDE NT ([facility]ated [facility]) Source of Specimen: Urine This value shows an increased risk factor of 3, where 0 is normal and 7 is extremely high. ID Date Data Source [id number] 08/17/2019 10:53:00 AM EDT MEDENT ([facility]) Name Value Range Interpretation Code Description Data Daphney rce(s) Supporting Document(s) Red Blood Count 4.43 4.00-5.40 MED[facility] ([facility]) Platelets 155 172-450 MEDENT ([facility]iology [facility]) White Blood Count 8.2 5.0-10.0 [facility] ([facility]) Hematocrit 41.6 [facility] ([facility]) Hemoglobin 14.0 [facility] ([facility]) ID Date Data Source [id number] 08/17/2019 10:53:00 AM EDT [facility] ([facility]i [facility]) Name Value Range Interpretation Code Description Data Daphney rce(s) Supporting Document(s) Calcium [Mass/volume] in Serum or Plasma 7.9 [facility] ([facility]) Potassium [Moles/volume] in Serum or Plasma 3.9 [facility] ([facility]) Chloride [Moles/volume] in Serum or Plasma 111 [facility] ([facility]) Sodium 142 MEDENT ([facility]) Carbon dioxide, total [Moles/volume] in Serum or Plasma 24 [facility] ([facility]) Glucose 125 83-110 MED[facility] ([facility]) Blood Urea Nitrogen 15 7-18 MEDENT (Ca rdiology [facility]) Creatinine 1.08 0.6-1.0 MEDENT ([facility]) Glomerular filtration rate/1.73 sq M.pre dicted [Volume Rate/Area] in Serum or Plasma by Creatinine-based formula (MDRD) Laboratory test result MEDENT ([facility]) ID Date Data Source [id number] 08/16/2019 10:50:00 AM EDT [facility] Name Value Range Interpretation Code Description Data Daphney rce(s) Supporting Document(s) Triglycerides 154 MEDENT (Cardiolo gy [facility]) HDL 28 MEDENT (Cardiology [facility]) Cholesterol in LDL [Mass/volume] in Serum or Plasma by calculation 32 MED[facility] ([facility]) Cholesterol 91 MED[facility] ([facility]) Chol/HDL Ratio 3.250 MED[facility] ([facility]iol [facility]) ID Date Data Source [id number] 08/16/2019 10:50:00 AM EDT MEDENT ([facility]) Name Value Range Interpretation Code Description Data Daphney rce(s) Supporting Document(s) Albumin [Mass/volume] in Serum or Plasma 3.1 [facility] ([facility]) Carbon dioxide, total [Moles/volume] in Serum or Plasma 25 [facility] ([facility]) Calcium [Mass/volume] in Serum or Plasma 7.8 [facility] ([facility]) Alanine aminotransferase [Enzymatic activity/volume] in Serum or Pl asma 28 MED[facility] ([facility]) Chloride [Moles/volume] in Serum or Plasma 112 MED[facility] ([facility]) Potassium [Moles/volume] in Serum or Plasma 3.8 [facility] ([facility]) Alkaline phosphatase [Enzymatic activity/volume] in Serum or Plasma 7 6 [facility] ([facility]) Sodium 144 MEDENT (Cardiology A ssociates of [facility]) Protein [Mass/volume] in Serum or Plasma 6.6 [facility] ([facility]) Aspartate aminotransferase [Enzymatic activity/volume] in Serum or Plasma 15 [facility] ([facility]) Urea nitrogen [Mass/volume] in Serum or Plasma 18 [facility] ([facility]) Glucose 139 83-110 [facility] Creatinine For GFR 1.07 MEDENT (Car [facility]ology [facility]) ID Date Data Source [id number] 08/15/2019 10:47:00 AM EDT [facility] ([facility]) Name Value Range Interpretation Code Description Data Daphney rce(s) Supporting Document(s) White Blood Count 9.5 5.0-10.0 [facility] ([facility]) Platelets 174 172-450 [facility] Hematocrit 43.1 MED[facility] ([facility]) Red Blood Count 4.55 4.00-5.40 [facility] ([facility]) Hemoglobin 14.2 [facility] ([facility]) ID Date Data Source [id number] 08/15/2019 10:47:00 AM EDT [facility] ([facility]) Name Value Range Interpretation Code Description Data Daphney rce(s) Supporting Document(s) Magnesium Level 1.9 1.8-2.4 [facility] ([facility]) Troponin Laboratory test result [facility] ([facility]) ID Date Data Source [id number] 08/15/2019 10:47:00 AM EDT [facility] ([facility]) Name Value Range Interpretation Code Description Data Daphney rce(s) Supporting Document(s) Creatine kinase [Enzymatic activity/volume] in Serum or Plasma 88 [facility] ([facility]) MB/CK Relative 1.82 MED[facility] ([facility]iol [facility]gy [facility]) CPK-MB 1.6 MED[facility] ([facility]) ID Date Data Source [id number] 08/15/2019 10:47:00 AM EDT [facility] ([facility]) Name Value Range Interpretation Code Description Data Daphney rce(s) Supporting Document(s) Albumin [Mass/volume] in Serum or Plasma 3.6 [facility] ([facility]) Alanine aminotransferase [Enzymatic activity/volume] in Serum or Pl asma 30 [facility] ([facility]) Carbon dioxide, total [Moles/volume] in Serum or Plasma 26 [facility] ([facility]) Calcium [Mass/volume] in Serum or Plasma 8.1 [facility] ([facility]) Potassium [Moles/volume] in Serum or Plasma 4.6 [facility] ([facility]) Chloride [Moles/volume] in Serum or Plasma 110 [facility] ([facility]) Alkaline phosphatase [Enzymatic activity/volume] in Serum or Plasma 9 4 [facility] ([facility]) Protein [Mass/volume] in Serum or Plasma 7.0 [facility] ([facility]) Sodium 142 MED[facility] ([facility]) Urea nitrogen [Mass/volume] in Serum or Plasma 19 [facility] ([facility]) Aspartate aminotransferase [Enzymatic activity/volume] in Serum or Plasma 24 [facility] ([facility]) Creatinine For GFR 1.19 MED[facility] (Car [facility]) Glucose 108 83-110 [facility] ([facility]) ID Date Data Source [id number] 05/21/2019 01:44:00 PM EST [facility] ([facility] [place]) Name Value Range Interpretation Code Description Data Daphney rce(s) Supporting Document(s) Bacteria identified in Urine by Culture Laboratory test result [facility] ([facility] [place]) SPECIMEN DESCRIPTION MIDSTREAM UR INE,CLEAN CATCH CULTURE RESULTS MIXED UROGENITAL IRENE; PLEASE SUBMIT A NEW SPEC IMEN IF CLINICALLY INDICATED. REPORT STATUS FINAL 05/22/2019 ID Date Data Source [id number] 05/22/2019 01:13:17 PM EST [facility] - CORE SPECIMEN DESCRIPTION MIDSTREAM UR INE,CLEAN CATCHCULTURE RESULTS MIXED UROGENITAL IRENE; PLEASE SUBMIT A NEW SPEC IMEN IF CLINICALLY INDICATED.REPORT STATUS FINAL 05/22/2019 Name Value Range Interpretation Code Description Data Daphney rce(s) Supporting Document(s) ID Date Data Source [id number] 05/21/2019 01:03:00 PM EST MEDENT ([facility]oc iated [facility]) Name Value Range Interpretation Code Description Data Daphney rce(s) Supporting Document(s) Protein [Presence] in Urine by Test strip Laboratory test result MEDENT ([facility]) Ua Nitrite Laboratory test result ME DENT ([facility]) Glucose [Presence] in Urine Laboratory test result MED[facility] ([facility]) Ua Leuko Laboratory test result ME DENT ([facility]) Blood [Presence] in Urine by Visual Laboratory test result MEDENT ([facility]) Ketones [Presence] in Urine by Test strip Laboratory test result MEDENT ([facility]) Color of Urine Laboratory test result MED[facility] ([facility]) Clarity of Urine Laboratory test result [facility] ([facility]) Ua Specific [place] 1.010 1.003-1.030 MEDE NT ([facility]) pH of Urine by Test strip 5.5 5.0-7.5 MED[facility] ([facility]) Bilirubin.total [Presence] in Urine by Test strip Laboratory test res ult MEDENT ([facility]) Urobilinogen [Mass/volume] in Urine by Test strip 0.2 E.U./dL 0.0-1.0 MEDENT ([facility]) ID Date Data Source [id number] 05/21/2019 12:08:00 PM EST [facility] XRAY ABDOMEN KUBCLINICAL HISTORY: Calculus [...] rce(s) Supporting Document(s) ID Date Data Source [id number] 04/28/2019 07:54:00 AM EST [facility] ([facility] [place]) Name Value Range Interpretation Code Description Data Daphney rce(s) Supporting Document(s) Prostate specific Ag [Mass/volume] in Serum or Plasma 0.5 ng/mL 0.0- 4.0 [facility] ([facility] [place]) [place] ECLIA methodology. According to the [place] [employer], Serum PSA should decrease and [...] of malignant disease. ID Date Data Source [id number] 04/29/2019 07:05:00 AM EST [facility] Name Value Range Interpretation Code Description Data Daphney rce(s) Supporting Document(s) Prostate Specific Ag, Serum 0.5 ng/mL 0.0-4.0 [facility] [place] ECLIA methodology. According to th e [place] [employer], Serum PSA shoulddecrease and remain at undetectable levels after radicalprostatectomy. The AUA defines biochemical recurrence as an initialPSA value 0.2 ng/mL or greater followed by a subsequent confirmatoryPSA value 0.2 ng/mL or greater.Values obtained with different assay methods or kits cannot be usedinterchangeably. Results cannot be interpreted as absolute evidenceof the presence or absence of malignant disease. ID Date Data Source [id number] 04/21/2019 12:00:00 PM EST MEDENT ([facility]oc iated [facility]) Name Value Range Interpretation Code Description Data Daphney rce(s) Supporting Document(s) Laboratory test finding (navigational concept) Laboratory test result MEDENT ([facility]) ID Date Data Source [id number] 04/21/2019 12:00:00 PM EST MEDENT ([facility]oc iated [facility]) Name Value Range Interpretation Code Description Data [facility] rce(s) Supporting Document(s) 24 hr Creatinine 1731 mg/d MEDENT ( Associated [facility]) Source of Specimen: Urine 24 hr Calcium per Kilogram Body Weight 0.5 mg/d/kg MEDENT ([facility]ated [facility]) Source of Specimen: Urine 24 hr Creatinine per Kilogram Body Weight 14.2 mg/d/kg 11.9-24.4 MED[facility] ([facility]) Source of Specimen: Urine 24 hr Calcium per 24 hr Creatinine 36 mg/g 34-196 MEDENT ([facility]) Source of Specimen: Urine ID Date Data Source [id number] 04/21/2019 12:00:00 PM EST [facility] Name Value Range Interpretation Code Description Data [facility] Supporting Document(s) 24 hr Chloride 244 mmol/d 70-250 MEDENT (As sociated Web [facility]) Source of Specimen: Urine This value shows an increased risk factor of 2, where 0 is normal and 7 is extremely high. 24 hr Sulfate 42 mEq/d 20-80 MEDENT (Ass ociated Web Application T[facility]) Source of Specimen: Urine 24 hr Ammonium 75 mmol/d 15-60 [facility] ([facility] [place]) Source of Specimen: Urine 24 hr Potassium 71 mmol/d 20-100 MEDENT (A ssociated Web Application T[facility]) Source of Specimen: Urine 24 hr Phosphorus 1.728 g/d 0.60-1.20 MEDENT ( Associated [facility]) Source of Specimen: Urine This value shows an increased risk factor of 3, where 0 is normal and 7 is extremely high. 24 hr Sodium 245 mmol/d 50-150 MEDENT (Asso ciated Web Application T[facility]) Source of Specimen: Urine This value shows an increased risk factor of 2, where 0 is normal and 7 is extremely high. 24 hr Magnesium 168 mg/d 30-120 MEDENT (A ssociated Web Application T[facility]) Source of Specimen: Urine 24 hr Urea Nitrogen 16.50 g/d 6.00-14.00 DREW Alfaro ([facility] [place]) Source of Specimen: Urine This value shows an increased risk factor of 1, where 0 is normal and 7 is extremely high. Protein Catabolic Rate 1.0 g/kg/d 0.8-1.4 ME JAVED ([facility] [place]) Source of Specimen: Urine ID Date Data Source [id number] 04/21/2019 12:00:00 PM EST ALFRED ([facility] [place]) Name Value Range Interpretation Code Description Data Daphney rce(s) Supporting Document(s) Interpretations Collection A Laboratory test result MEDNATALY (Associated Web Application [facility] [place]) Source of Specimen: Urine Business Process Manager's Note: At least one urine analyte was [...] = 42 meq/d). ID Date Data Source [id number] 04/21/2019 12:00:00 PM EST [facility] ([facility] [place]) Name Value Range Interpretation Code Description Data Daphney rce(s) Supporting Document(s) 24 hr Oxalate 168 mg/d 20-40 [facility] ([facility] [place]) Source of Specimen: Urine This value shows an increased risk factor of 5, where 0 is normal and 7 is extremely high. 24 hr Uric Acid 0.345 g/d [facility] ([facility] [place]) Source of Specimen: Urine pH 5.508 5.800-6.200 [facility] ([facility] [place]) Source of Specimen: Urine This value shows an increased risk factor of 3, where 0 is normal and 7 is extremely high. 24 hr Calcium 62 mg/d [facility] ([facility]at ed [facility]) Source of Specimen: Urine 24 hr Citrate Laboratory test result [facility] ([facility] [place]) Source of Specimen: Urine This value shows an increased risk factor of 5, where 0 is normal and 7 is extremely high. Supersaturation CaOx 4.50 6.00-10.00 [facility]E NT ([facility] [place]) Source of Specimen: Urine Urine Volume 3.03 L/d 0.50-4.00 [facility] ([facility]so [facility]iated [facility]) Source of Specimen: Urine Supersaturation CaP 0.08 0.50-2.00 MEDEN T ([facility]) Source of Specimen: Urine Supersaturation Uric Acid 0.52 [facility] ([facility]) Source of Specimen: Urine Procedure Social History Code Duration Value Status Description Data Source(s ) Smoking 03/02/2020 12:00:00 AM EST Former Cigarette Smoker com pleted Former Cigarette Smoker [facility] ([facility]) Alcohol intake 02/25/2020 12:00:00 AM EST No completed [facility] Cigarette pack-years 02/25/2020 12:00:00 AM EST UNK completed [facility] Cigarettes smoked current (pack per day) - Reported 02/25/20 12:00:00 AM EST UNK completed [facility] Smoking 02/25/2020 12:00:00 AM EST Former smoker completed Former smoker [facility] Smoking 01/22/2020 05:47:00 PM EDT Former Smoker completed Former Smoker [facility] Smoking 01/20/2020 02:06:00 PM EDT Former Smoker completed Former Smoker [facility] Smoking 09/02/2019 12:00:00 AM EDT Patient is a former smoker completed Patient is a former smoker [facility] ([facility]) Vital Signs ID Date Data Source UNK Name Value Range Interpretation Code Description Data Source(s) Body mass index (BMI) [Ratio] 44.7 kg/m2 44.7 k g/m2 [facility] ([facility]) Body height 68 [in_i] 68 [in_i] [facility] ([facility]) 5'8" Body weight 294.00 [lb_av] 294.00 [lb_av] [facility] T ([facility]) Oxygen saturation in Arterial blood by Pulse oximetry 98 % 98 % [facility] Respiratory rate 16 /min 16 /min [facility] Heart rate 78 /min 78 /min [facility] Diastolic blood pressure 70 mm[Hg] 70 mm[Hg] [facility] Systolic blood pressure 128 mm[Hg] 128 mm[Hg] [facility] Body temperature 98.1 [degF] 98.1 [degF] [facility] ([facility] [place]) Body temperature 36.72 Aydee 36.72 Aydee [facility] Body mass index (BMI) [Ratio] 43.79 kg/m2 43.79 kg/m2 [facility] ([facility] [place] Body weight 130.636 kg 130.636 kg [facility] ([facility] [place]) Body weight 288.00 [lb_av] 288.00 [lb_av] [facility] T ([facility] [place]) Body height 67.99 [in_i] 67.99 [in_i] [facility] ([facility] [place]) 5'7.99" Body mass index (BMI) [Ratio] 43.79 kg/m2 43.79 kg/m2 [facility] Body weight 130.636 kg 130.636 kg [facility] Body height 172.7 cm 172.7 cm [facility] Heart rate 68 /min 68 /min [facility] ([facility] [place]) Diastolic blood pressure 85 mm[Hg] 85 mm[Hg] [facility] ([facility] [place]) Systolic blood pressure 115 mm[Hg] 115 mm[Hg] M [facility] ([facility] [place]) Body mass index (BMI) [Ratio] 45.3 kg/m2 45.3 k g/m2 [facility] ([facility] [place]) Body weight 135.173 kg 135.173 kg [facility] ([facility] [place]) Body weight 298.00 [lb_av] 298.00 [lb_av] [facility] T ([facility] [place]) Body height 68 [in_i] 68 [in_i] [facility] ([facility] [place]) 5'8" Body temperature 36.5 aydee Normal (applies to non-numeric results) 36.5 aydee [facility] Respiratory rate 19 min Normal (applies to non-numeric results) 19 min [facility] Heart rate 63 min Normal (applies to non-numeric resul ts) 63 min [facility] Diastolic blood pressure 80 mm[Hg] Normal (applies to non-numeric results) 80 mm[Hg] [facility] Systolic blood pressure 156 mm[Hg] Normal (applies t o non-numeric results) 156 mm[Hg] [facility] Deprecated Oxygen saturation in Capillary blood by Oximetry 96 % Normal (applies to non-numeric results) 96 % [facility] Body weight Measured 134.717 kg Normal (applies to n on-numeric results) 134.717 kg [facility] Body height 171.9072 cm Normal (applies to non-numeric res ults) 171.9072 cm [facility] Body mass index (BMI) [Ratio] 45.16 kg/m2 No rmal (applies to non-numeric results) 45.16 kg/m2 [facility] Body temperature 36.8 aydee Normal (applies to non-numeric results) 36.8 aydee [facility] Respiratory rate 20 min Normal (applies to non-numeric results) 20 min [facility] Heart rate 73 min Normal (applies to non-numeric resul ts) 73 min [facility] Diastolic blood pressure 72 mm[Hg] Normal (applies to non-numeric results) 72 mm[Hg] [facility] Systolic blood pressure 116 mm[Hg] Normal (applies t o non-numeric results) 116 mm[Hg] [facility] Body weight Measured 118.4 kg Normal (applies to n on-numeric results) 118.4 kg [facility] Body height 171.9072 cm Normal (applies to non-numeric res ults) 171.9072 cm [facility] Deprecated Oxygen saturation in Capillary blood by Oximetry 97 % Normal (applies to non-numeric results) 97 % [facility] Body temperature 97.0 [degF] 97.0 [degF] [facility] ([facility] [place]) Heart rate 73 /min 73 /min [facility] ([facility] [place]) Diastolic blood pressure 84 mm[Hg] 84 mm[Hg] [facility] ([facility] [place]) Systolic blood pressure 133 mm[Hg] 133 mm[Hg] M [facility] ([facility] [place]) Body mass index (BMI) [Ratio] 45.3 kg/m2 45.3 k g/m2 [facility] ([facility] [place]) Body weight 135.173 kg 135.173 kg [facility] ([facility] [place]) Body weight 298.00 [lb_av] 298.00 [lb_av] [facility] T ([facility] [place]) Body height 68 [in_i] 68 [in_i] [facility] ([facility] [place]) 5'8" Diastolic blood pressure--sitting 68 mm[Hg] 68 mm[Hg] [facility] ([facility]) large cuff, Ra Systolic blood pressure--sitting 122 mm[Hg] 122 mm[Hg] [facility] ([facility]) large cuff, Ra Heart rate 65 /min 65 /min [facility] ([facility]) Body mass index (BMI) [Ratio] 44.8 kg/m2 44.8 k g/m2 [facility] ([facility]) Body height 68 [in_i] 68 [in_i] [facility] ([facility]) 5'8" Body weight 295.00 [lb_av] 295.00 [lb_av] DREW Alfaro ([facility])
--- NOTE | 2020-04-25 03:55 | HPEPDOC ---
[facility] Medical History & Physical Date of Admission Apr 25, 2020 Date of Service: Apr 25, 2020 Attending Physician: BERTRAND SHANNON MD History and Physical TIME OF SERVICE: 405am CHIEF COMPLAINT: positive blood cx HISTORY OF PRESENT ILLNESS: was diagnosed with COVID 19 on Apr 13 at an outside facility with his . The second COVID test taken at [facility] on Apr 13 was negative, but the third test taken this morning was positive. He was admitted to the COVID unit between Apr 21 and Apr 23. Early this morning I was informed by STIVEN Calvo that the lab informed him that the preliminary results from the blood cultures, which were drawn on Apr 21, were positive for gram positive cocci in pairs and clutters. I called the patient and ask him to return to the hospital. At the time of my evaluation the patient denied having fevers, child or chest pain. He continues to have a cough, dyspnea and require supplemental O2. REVIEW OF SYSTEMS: 12-point review of systems negative except as listed in HPI PAST MEDICAL/ SURGICAL HISTORY: O2 dependent respiratory failure 2/2 COVID PNA TIA March 2016 Carotid artery disease / bilateral proximal ICA stenosis less than 50% HFpEF (grade 2) / Mild Pulm HTN Radiculopathy, chronic Gout Insomnia CAD s/p CABG 11/26/2015 Depression / Anxiety HTN GERD Chronic back pain Occasional yeast infections in abdominal pannus Erectile dysfunction Hx of diabetes mellitus, resolved after bariatric surgery 10/2016 Recurrent kidney stones s/p Lithotripsy Hernia repair x 15 surgeries Pericardial window SOCIAL HISTORY: Prior smoker, for 12-15 years, >2 PPD. Quit 1984 FAMILY HISTORY: Father: DM type II, CAD. at 71 y/o. Mother: ESRD on HD, DM type II, CAD, HTN, arthritis. at 63 y/o Siblings: Brother- multiple sclerosis. at 29. ALLERGIES: Please see below. HOME MEDICATIONS: Please see below. PHYSICAL EXAMINATION: Vital Signs Date Time Temp Pulse Resp B/P (MAP) Pulse Ox O2 Delivery O2 Flow Rate FiO2 04/25/20 03:40 64 19 140/87 (104) 97 Nasal Cannula 2.0 04/25/20 04:10 97.3 GENERAL APPEARANCE: well nourished/ well developed/ NAD HEENT: NC in place CARDIOVASCULAR: RRR/ NMRG LUNGS: not using accessory muscles / breath sounds diminished ABDOMEN: obese MUSCULOSKELETAL: NCAT/ RAMIREZ x 4 NEUROLOGICAL:CN 2-12 grossly intact / speech not dysarthric PSYCHIATRIC: A&Ox 3 /able to understand and follow commands LABORATORY DATA: 04/25/20 03:57 IMAGING: Chest xray IMPRESSION: Improved aeration of the retrocardiac region with residual atelectasis versus infiltrates. MICROBIOLOGY: COVID 19 + Blood cx Apr 21 #1- gram pos cocci in clusters Blood cx Apr 21 #2 prelim neg Blood cx Apr 21 # 3- prelim neg Blood cx Apr 25 #1 pending.. Blood cx Apr 25 #2 - pending ASSESSMENT: is a 64 y/o w a hx of O2 dependent respiratory failure 2/2 COVID, TIA HFpEF HTN CAD Depression & Anxiety who was found to have positive blood cx and asked to return to [facility] for antibiotics pending the final results. PLAN: 1. Questionable Bacteremia He doesnt have SIRS 1/3 blood cx were positive Lactic acid is elevated Plan: admit to medical floor / start Vanc and Meropenum / f/u repeat blood cx 2. Hypoxemic respiratory failure 2/2 COVID Plan: supplemental O2/ c/w PO dexamethasone w PPI / c/w inhaler 3.HFpEF (grade 2) / Mild Pulm HTN Plan: Metoprolol 4. Radiculopathy Plan; pregabalin 5.CAD s/p CABG 11/26/2015 /TIA Plan: ASA,statin and metoprolol 6. Depression / Anxiety Plan: Duloxetine 7. Gout Plan: Allopurinol 8. Obesity BMI 44.1 Complicates care DVT Px Lovenox Dispo: home after more than 2 midnights stay Home Medications Scheduled Allopurinol (Allopurinol) 100 Mg Tablet, 100 MG PO DAILY Aspirin (Aspirin EC) 81 Mg Tab, 81 MG PO DAILY Atorvastatin Calcium (Atorvastatin Calcium) 80 Mg Tablet, 80 MG PO QHS Calcium Citrate/Vitamin D3 (Citracal + D Maximum Caplet) 1 Tab Tab, 3 TAB PO BID Cyanocobalamin (Vitamin B-12) (Vitamin B-12) 1,000 Mcg Tab, 1,000 MCG PO DAILY Dexamethasone (Dexamethasone) 2 Mg Tablet, 2 MG PO DAILY STARTED 04/24/20 X 3 DAYS Docusate Sodium (Dok) 100 Mg Capsule, 100 MG PO BID Duloxetine Hcl (Duloxetine HCl) 60 Mg Cap, 60 MG PO DAILY Glucosamine Sulfate Dipot Chlr (Glucosamine) 1,000 Mg Tablet, 1,000 MG PO BID Metoprolol Tartrate (Metoprolol Tartrate) 25 Mg Tablet, 25 MG PO BID Omeprazole (Omeprazole) 40 Mg Cap, 40 MG PO DAILY Pregabalin (Lyrica) 150 Mg Capsule, 150 MG PO BID Tamsulosin HCl (Flomax) 0.4 Mg Capsule, 0.4 MG PO QHS Ubidecarenone/Vit E Acet (Co Q-10 100 mg Softgel) 100 Mg Cap, 100 MG PO BID Scheduled PRN Ipratropium/Albuterol Sulfate (Combivent Respimat 20-100 Mcg) 4 Gm Mist.inhal, 1 PUFF INH QIDP PRN for DYSPNEA Nitroglycerin (Nitrostat) 0.4 Mg Tab.subl, 0.4 MG SL NITRO PRN for CHEST PAIN Nystatin (Nystatin Powder) 15 Gm Powder, 1 APLCT TOP DAILY PRN for RASH/ITCHING APPLY TO GROIN AREA Ondansetron HCl (Ondansetron HCl) 4 Mg Tablet, 4 MG PO Q6H PRN for NAUSEA Sildenafil Citrate (Viagra) 100 Mg Tablet, 100 MG PO DAILYPRN PRN for erectile dysfunction 1 hour before sexual activity Allergies Coded Allergies: Penicillins (Verified Allergy, Intermediate, rash, 04/21/20) naproxen (Verified Adverse Reaction, Intermediate, Gastric bypass, 04/21/20) ibuprofen (Verified Adverse Reaction, Unknown, gastric bypass, 04/21/20) A-FIB/CHADSVASC A-FIB History Current/History of A-Fib/PAF?: No Current PO Anticoag Therapy: BERTRAND Hicks MD Apr 25, 2020 03:55
[2020-04-25] MEDS ORDERED: MOM 30ML SUSPENSION UDC PO PRN (04:00)
[2020-04-25] MEDS ORDERED: MAALOX 30 ML SUSP *UDC PO PRN (04:00)
[2020-04-25] MEDS ORDERED: MEROPENEM INJ 1 GM in IV 1 EA IV SCH (04:00)
[2020-04-25] MEDS ORDERED: SODIUM CHLORIDE 0.9% 1000ML IV SCH (04:00)
[2020-04-25] MEDS ORDERED: ACETAMINOPHEN TAB 650MG DOSE (2X325MG) PO PRN (04:00)
[2020-04-25 04:16] LABS: HEMOGLOBIN 13.2 g/dl (13.5-17.5); MEAN CORPUSCULAR HEMOGLOBIN 30.1 pg (27.0-33.0); MEAN CORPUSCULAR HGB CONC 32.2 g/dl (32.0-36.5); MEAN CORPUSCULAR VOLUME 93.4 fl (80.0-96.0); PLATELET COUNT, AUTOMATED 359 10^3/uL (150-450); RED BLOOD COUNT 4.39 10^6/uL (4.30-6.10); WHITE BLOOD COUNT 11.9 10^3/uL (4.0-10.0)
[2020-04-25 04:22] LABS: INR 1.13; PROTHROMBIN TIME 14.8 SECONDS (12.5-14.3)
[2020-04-25 04:23] LABS: PARTIAL THROMBOPLASTIN TIME 26.3 SECONDS (24.2-38.5)
[2020-04-25] MEDS ORDERED: ALLO100T PO (04:27)
[2020-04-25] MEDS ORDERED: DEXA2TA PO (04:27)
[2020-04-25 04:32] LABS: ALBUMIN 2.9 GM/DL (3.2-5.2); ALT/SGPT 59 U/L (12-78); BILIRUBIN,DIRECT 0.2 MG/DL (0.0-0.2); BILIRUBIN,TOTAL 0.6 MG/DL (0.2-1.0); BLOOD UREA NITROGEN 29 MG/DL (7-18); CALCIUM LEVEL 8.2 MG/DL (8.8-10.2); CARBON DIOXIDE LEVEL 25 MEQ/L (21-32); CHLORIDE LEVEL 109 MEQ/L (98-107); CK-MB VALUE MASS 1.8 NG/ML (<3.6); CPK CREATINE PHOSPHOKINASE 69 U/L (39-308); CREATININE FOR GFR 1.38 MG/DL (0.70-1.30); GLOMERULAR FILTRATION RATE 55.6 (>49); GLUCOSE, FASTING 193 MG/DL (70-100); MB/CK RELATIVE INDEX 2.61 (< OR =4); POTASSIUM SERUM 4.1 MEQ/L (3.5-5.1); SODIUM LEVEL 143 MEQ/L (136-145); TOTAL PROTEIN 6.6 GM/DL (6.4-8.2); TROPONIN I < 0.02 NG/ML (< 0.10)
[2020-04-25 04:43] LABS: EOSINOPHILS 1 % (0-3); LYMPHOCYTES 25 % (16-44); METAMYELOCYTES 3 % (0-0); MONOCYTES 5 % (0-5); MYELOCYTES 1 % (0-0); NEUTROPHILS 62 % (28-66); PLATELET ESTIMATE NORMAL (NORMAL)
--- NOTE | 2020-04-25 04:47 | REPVR ---
PROCEDURE INFORMATION: Exam: XR Chest, 1 View Exam date and time: 04/25/2020 4:20 AM Age: 64 years old Clinical indication: Cough; Additional info: Dyspnea/cough TECHNIQUE: Imaging protocol: XR of the chest Views: 1 view. COMPARISON: CR PORTABLE CHEST X-RAY 04/21/2020 4:33 PM FINDINGS: Lungs: There is low lung volume with bronchovascular crowding. There is elevation of the right hemidiaphragm with overlying atelectatic changes. There is improved aeration of the retrocardiac region with residual atelectasis versus infiltrates. Pleural spaces: Unremarkable. No pleural effusion. No pneumothorax. Heart/Mediastinum: Unremarkable. No cardiomegaly. Bones/joints: The patient is status post sternotomy with grossly intact sternal wires. IMPRESSION: Improved aeration of the retrocardiac region with residual atelectasis versus infiltrates. Electronically signed by: Kristofer Kamara On 04/25/2020 04:46:20 AM
--- OUTSIDE RECORDS SUMMARY | 2020-04-25 04:49 | CCD ---
Author Author [facility] Organization [facility] Address Unknown Phone Unavailable Care Team Providers Care Hoop Punch Operator Helper Name Role Phone FIGUEROA, Ranjit SR MD [...] Raji ORTIZ Unavailable Unavailable McHone, R Raji ORTZI Unavailable Unavailable McHone, R Raji ORTIZ Unavailable [...] PREET ORTIZ Unavailable Unavailable Khanna, A Soledad COMMUNICATIONS CLERK Unavailable Unavailable Khanna, A Soledad COMMUNICATIONS CLERK Unavailable Unavailable Khanna, A Soledad COMMUNICATIONS CLERK Unavailable Unavailable Khanna, A Soledad COMMUNICATIONS CLERK Unavailable Unavailable Khanna, A Soledad COMMUNICATIONS CLERK Unavailable Unavailable Khanna, A Soledad COMMUNICATIONS CLERK Unavailable Unavailable Khanna, A Soledad COMMUNICATIONS CLERK Unavailable Unavailable Khanna, A Soledad COMMUNICATIONS CLERK Unavailable Unavailable Khanna, A Soledad COMMUNICATIONS CLERK Unavailable Unavailable Khanna, A Soledad COMMUNICATIONS CLERK Unavailable Unavailable Khanna, A Soledad COMMUNICATIONS CLERK Unavailable Unavailable Khanna, A Soledad COMMUNICATIONS CLERK Unavailable Unavailable Khanna, A Soledad COMMUNICATIONS CLERK Unavailable Unavailable Khanna, A Soledad COMMUNICATIONS CLERK Unavailable Unavailable Khanna, A Soledad COMMUNICATIONS CLERK Unavailable Unavailable Khanna, A Soledad COMMUNICATIONS CLERK Unavailable Unavailable Khanna, A Soledad COMMUNICATIONS CLERK Unavailable Unavailable Khanna, A Soledad COMMUNICATIONS CLERK Unavailable Unavailable Khanna, A Soledad COMMUNICATIONS CLERK Unavailable Unavailable Khanna, A Soledad COMMUNICATIONS CLERK Unavailable Unavailable Khanna, A Soledad COMMUNICATIONS CLERK Unavailable Unavailable Khanna, A Soledad COMMUNICATIONS CLERK Unavailable Unavailable Khanna, A Soledad COMMUNICATIONS CLERK Unavailable Unavailable Khanna, A Soledad COMMUNICATIONS CLERK Unavailable Unavailable Khanna, A Soledad COMMUNICATIONS CLERK Unavailable Unavailable Khanna, A Soledad COMMUNICATIONS CLERK Unavailable Unavailable Khanna, A Soledad COMMUNICATIONS CLERK Unavailable Unavailable Khanna, A Soledad COMMUNICATIONS CLERK Unavailable Unavailable Khanna, A Soledad COMMUNICATIONS CLERK Unavailable Unavailable Khanna, A Soledad COMMUNICATIONS CLERK Unavailable Unavailable Khanna, A Soledad COMMUNICATIONS CLERK Unavailable Unavailable Khanna, A Soledad COMMUNICATIONS CLERK Unavailable Unavailable Khanna, A Soledad COMMUNICATIONS CLERK Unavailable Unavailable Khanna, A Soledad COMMUNICATIONS CLERK Unavailable Unavailable Khanna, A Soledad COMMUNICATIONS CLERK Unavailable Unavailable Khanna, A Soledad COMMUNICATIONS CLERK Unavailable Unavailable Khanna, A Soledad COMMUNICATIONS CLERK Unavailable Unavailable Khanna, A Soledad COMMUNICATIONS CLERK Unavailable Unavailable Khanna, A Soledad COMMUNICATIONS CLERK Unavailable Unavailable Khanna, A Soledad COMMUNICATIONS CLERK Unavailable Unavailable Khanna, A Soledad COMMUNICATIONS CLERK Unavailable Unavailable Khanna, A Soledad COMMUNICATIONS CLERK Unavailable Unavailable Khanna, A Soledad COMMUNICATIONS CLERK Unavailable Unavailable Khanna, A Soledad COMMUNICATIONS CLERK Unavailable Unavailable Khanna, A Soledad COMMUNICATIONS CLERK Unavailable Unavailable Khanna, A Soledad COMMUNICATIONS CLERK Unavailable Unavailable Khanna, A Soledad COMMUNICATIONS CLERK Unavailable Unavailable Khanna, A Soledad COMMUNICATIONS CLERK Unavailable Unavailable Khanna, A Soledad COMMUNICATIONS CLERK Unavailable Unavailable Derosalia, R Sarthak ORTIZ Unavailable [...] Rozina (Victor Manuel) MD Unavailable Unavailable Tin, Keturha Rozina (Victor Manuel) MD Unavailable Unavailable Tin, [...] Sarthak ORTIZ Unavailable Unavailable Derosalia, R Sarthak OTRIZ Unavailable Unavailable Derosalia, R Sarthak ORTIZ Unavailable [...] Tate De León MD Unavailable Unavailable Derosalia, aTte De León MD Unavailable Unavailable Derosalia, Tate [...] McHone, Tate Alegria MD Unavailable Unavailable McHone, Ttae Alegria MD Unavailable Unavailable McHone, Tate Alegria [...] is protected by Article 27-F of the [facility] Public Health law. If you continue you may have access to information: Regarding HIV / AIDS; Provided by facilities licensed or operated by the [facility] Office of Mental Health; or Provided by the [facility] Office for People With Developmental Disabilities. If such information is present, then the following [facility] mandated warning applies: This information has been [...] law may result in a fine or nursing home sentence or both. A general authorization for the release of medical or other information is NOT sufficient authorization for further disc losure. Allergies and Adverse Reactions Type Description Substance Reaction Status Data Source(s ) Adverse Reaction Adverse Reaction NSAIDS ME DENT ([facility] [place]) Propensity to adverse reactions NSAIDS Nsaids Acti ve [facility] Family History Family Member Name Family Member Gender Family Member Status Date o f Status Description Data Source(s) Unknown Unknown Problem [facility] ([facility]) Unknown Female Problem MEDENT ([facility] ) Unknown Female Problem MEDENT ([facility], ) Unknown Female Problem MEDENT ([facility], ) Unknown Female Problem MEDENT ([facility], ) Unknown Female Problem [facility] ([facility] ) Encounters Encounter Providers Location Date Indications Data Source(s ) O Attender: Mamadou GREEN 04/13/19 12:34:34 PM EST - 04/13/2020 01:24:27 PM EST [facility] ([facility] ) Outpatient Referrer: Sarthak Montana MD 03/08/2020 11:25: 52 AM EST [facility] Outpatient Referrer: Sarthak Montana MD MOB-MOB.PAT 09:49:23 AM EST - 02/21/2020 09:49:27 AM EST [facility] Inpatient Attender: Sarthak Pemberton DAttender: Gregory Frazier JRAdmitter: Sarthak Montana MDReferrer: Sarthak Montana MD [email or web address] 02/16/2020 0 9:55:13 AM EST - 02/25/2020 01:45:00 PM EST [facility] Patient discharged. Outpatient Referrer: Sarthak Montana MD 02/02/2020 11:42: 03 AM EST [facility] Outpatient Attender: Sarthak Montana MD [place]/ [facility] log[facility] 02/02/2020 11:40:00 AM EST [facility] Inpatient Attender: QUINTON PRIDE MD 01/22/2020 0 6:37:49 PM EDT [facility] [place] [facility] Inpatient Attender: QUINTON PRIDE MDAdmitt er: QUINTON PRIDE MD 01/22/2020 03:40:00 PM EDT - 01/25/2020 04:48:00 PM ES T SEPSIS FROM URINARY TRACT INFECTION FEVER S/P URETERAL STENT [facility] SEPSIS FROM URINARY TRACT INFECTION FEVE R S/P URETERAL STENT Patient discharged. Inpatient Attender: QUINTON PRIDE MD 01/22/2020 0 3:40:00 PM EDT [facility] [place] ( in Healthcare facility) Attender: LA PRIDE MDAdmitter: QUINTON PRIDE MDConsultant: REMBERTO MARTI MD 01/22/2020 03:40:00 PM EDT [facility] Inpatient Attender: Raji Wynne MD 01/20/2020 01:27:5 0 PM EDT [facility] [place] [facility] D Attender: Raji Wynne MD 11:54:00 AM EDT - 01/21/2020 02:23:00 PM EDT [facility] Inpatient Attender: Raji Wynne MDAdmitter: Raji Sharp MD 01/20/2020 11:54:00 AM EDT - 01/21/2020 02:23:00 PM EDT RENAL CALCULUS HYDRONEPHROSIS [facility] RENAL CALCULUS HYDRONEPHROSIS Patient discharged. [place] ( in Healthcare facility) Attender: Klaus Wynne MDAdmitter: Raji Wynne MDConsultant: REMBERTO MARTI MD 01/20/2020 11:54:00 AM EDT [facility] Outpatient Attender: SHARON GREEN Physical Therapy [...] 08:20:07 PM EDT [facility] Outpatient Attender: Soledad Khanna NP [place]/ [facility] 09/22/2019 02:30:00 PM EDT [facility] ([facility] Outpatient Attender: Shanae GREEN Main Office 09/02/2019 10:15:0 0 AM EDT MEDENT ([facility]) Outpatient Referrer: Sarthak Montana MD 05/21/2019 12:07: 05 PM EST [facility] Outpatient Attender: Soledad Khanna NP [place]/ [facility]rolog y 05/21/2019 12:00:00 PM EST [facility] ([facility]) Medications Medication Brand Name Start Date Product Form Dose Route Admi nistrative Instructions Pharmacy Instructions Status Indications Reaction Description Data Source(s) Blood Pressure Monitor Automatic/Arm 03/15/2020 12:00:00 AM EST active [facility]ENT ([facility]) Tamsulosin hydrochloride 0.4 MG Oral Capsule Tamsulosin HCL 03/14/2020 12:00:00 AM EST ORAL active [facility] ([facility] Sulfamethoxazole 800 MG / Trimethoprim 160 MG Oral Tablet [B actrim] Bactrim DS 03/08/2020 12:00:00 AM EST ORAL active [facility] ([facility]) normal saline flush 0.9 % injection 3 mL [id number] 02/25/2020 02:00:00 PM EST 3 mL Intravenous active 3 mL , Intravenous, Every 8 hours (scheduled), First dose on Sun02/25/20 at 1400, PACU (only)
flush per protocol, D/C Main IV fluid if appropriate
[facility] Medication administered onsite ondansetron (ZOFRAN) injection 4 mg [id number] 02/25/2020 12:07:2 3 PM EST 4 mg Intravenous active 4 mg, In travenous, Once as needed, nausea, vomiting, Starting Sun02/25/20 at 1207, For 1 dose, PACU (only)
If not given in last 4 hours
[facility] Medication administered onsite Albuterol 0.833 MG/ML / Ipratropium Brom horacio 0.167 MG/ML Inhalant Solution ipratropium-albuterol (DUO-NEB) 0.5-2.5 mg/mL nebulizer solution 3 mL ipratropium-albuterol (DUO-NEB) 0.5-2.5 mg/mL nebulizer solution 3 mL 02/25/2020 12:07:23 PM EST 3 mL Inhalation active 3 mL, Inhalation, Once as needed, shortness of breath, Starting Sun02/25/20 at 1207, For 1 dose, PACU (only) [facility] Medication administered onsite 10 ML Atropine Sulfate [...] or 0.04 mg/kg. Max of 6 doses
[facility] Medication administered onsite HYDROmorphone (DILAUDID) injection 0.5 mg [id number] 02/25/2020 12:07:22 PM EST 0.5 mg Intravenous active 0.5 mg, Intravenous, Every 5 min PRN, severe pain (7-10), Starting Sun02/25/20 at 1207, For 5 doses, PACU (only) [facility] Medication administered onsite fentaNYL Citrate (PF) (SUBLIMAZE) injection 25 mcg [id number] 02/25/2020 12:07:22 PM EST 25 ug Intravenous active 25 mcg, Intravenous, Every 5 min PRN, moderate pain (4 to 6), Starting Sun02/25/20 at 1207, For 5 doses, PACU (only) [facility] Medication administered onsite normal saline flush 0.9 % injection 3 mL [id number] 02/25/2020 10:00:00 AM EST 3 mL Intravenous active 3 mL , Intravenous, Every 8 hours (scheduled), First dose on Sun02/25/20 at 1000, Pre-op
Rapid push positive pressure flushing shall be performed with a 10 cc normal saline syringe to check the PATENCY of a PIV site prior to any infusion therapy initiation unless resistance is met.
[facility] Medication administered onsite tramadol hydrochloride 50 MG Oral Tablet Tramadol HCL 11/07/2019 12:00:00 AM EDT active [facility] ([facility]) Triamcinolone Acetonide 1 MG/ML Topical Cream Triamcinolone Acetonide 09/01/2019 12:00:00 AM EDT active MEDENT ([facility]) Nystatin 100 UNT/MG Topical Powder [Nyamyc] Nyamyc 09/01/2019 12:00:00 AM EDT active [facility] ([facility]) Betamethasone 0.5 MG/ML / Clotrimazole 10 MG/ML Topica l Cream Clotrimazole/Betamethasone Dipropionate 09/01/2019 12:00:00 AM EDT active [facility] ([facility]) sildenafil 100 MG Oral Tablet [Viagra] Viagra 09/01/2019 12:00:00 AM EDT ORAL active [facility] ([facility]) Insurance Providers Payer name Policy type / Coverage type Policy ID Covered democrat ID Covered democrat's relationship to whitfield Policy [place] Plan Information [facility] [id number] SP [id number] [facility] Health [employer] [id number] Fe f [id number] SELF PAY ONLY [id number] SP [id number] [facility] MEDICARE [id number] Fe [id number] INSURANCE COVID-19 COVID Fe C OVID [facility] [id number] Fe [id number] [facility] MEDICARE [id number] INSURANCE COVID-19 [id number] [facility] MEDICARE [id number] MEDICARE NICOLE [id number] S [id number] [facility] [id number] S [id number] [facility] HEALTH PLANS CLAIMS DEPT [id number] [facility] [id number] SP [id number] [facility] HEALTH CARE [id number] SP [id number] [facility] MEDICARE Fe [id number] [facility] PREMIER EXCHANGE [id number] Fe [id number] MEDICARE [id number] Fe [id number] [facility] [id number] Fe [id number] MVP [id number] Fe [id number] WELLCARE MEDICARE PI PI Wellcare MCR - To Ppo Commercial [id number] Self [id number] MVP Indemnity Commercial [id number] Self [id number] Wellcare MCR - To Ppo Commercial [id number] Self [id number] Wellcare-Todays Opts Ppo Commercial [id number] Self [id number] MVP Health Plan Medigap Part B [id number] Family Dependent [id number] Wellcare-Todays Opts Ppo Commercial [id number] Self [id number] MVP PREMIER EXCHANGE [id number] Fe [id number] MVP Health Plan Health Maintenance Organization (HMO) [id number] Family Dependent [id number] MEDICARE [id number] Fe [id number] MEDICARE C [id number] S [id number] A MVP HEALTH CARE O [id number] P [id number] MVP Indemnity Commercial [id number] Self [id number] MEDICARE [id number] Fe [id number] A MVP HEALTH CARE HEA [id number] SP [id number] UNAVAILABLE UNAVAILA BLE MEDICARE MCA [id number] S [id number] A MVP HEALTH CARE HEA [id number] SP [id number] MEDICARE PI PI MVP PREMIER EXCHANGE PI PI MEDICARE [id number] SP [id number] A MVP HEALTH CARE [id number] MVP H [id number] Self [id number] MVP H [id number] Self [id number] MEDICARE A [id number] Self [id number] A [place] Insurance Commercial [id number] Family Dependent [id number] [place] Medigap Part B [id number] Family Depend ent [id number] [place] Medigap Part B [id number] [place] Medigap Part B [id number] Family Depend ent [id number] MVP (pr) Commercial [id number] Family Dependent [id number] MVP (pr) Commercial [id number] Family Dependent [id number] MVP H [id number] Self [id number] MVP [id number] Fe [id number] [place] Insurance Commercial [id number] Family Dependent [id number] [place] Medigap Part B [id number] Family Depend ent [id number] [place] Medigap Part B [id number] [place] Medigap Part B [id number] Family Depend ent [id number] MVP (pr) Commercial [id number] Family Dependent [id number] [employer] Insurance Commercial [id number] Family Dependent [id number] [place] Medigap Part B [id number] Family Depend ent [id number] [place] Medigap Part B [id number] [place] Medigap Part B [id number] Family Depend ent [id number] MVP (pr) Commercial [id number] Family Dependent [id number] MVP HEALTH CARE [id number] SP [id number] MEDICARE [id number] SP [id number] A MVP HEALTH CARE [id number] SP [id number] MVP PREMIER EXCHANGE [id number] Fe [id number] MVP HEALTH CARE [id number] SP [id number] MVP Indemnity Commercial Self MVP PREMIER EXCHANGE [id number] Fe [id number] MVP Cigna Ppo Commercial Family Dependent MVP Gold Commercial Family Dependent BCBS [place] PPO [id number] EXCELLUS BCBS B [id number] P [id number] MVP (pr) Commercial Family Dependent [place] Insurance Commercial Family Dependent BS [place] Medigap Part B Family Dependent [place] Medigap Part B [place] Commercial Family Dependent [id number] Problems, Conditions, and Diagnoses Code Display Name Description Problem Type Effective Dates Data Source(s) N20.1 Calculus of ureter Calculus of ureter Diagnosis 04/2019 08:17:00 AM [facility] U07.1 COVID-19 COVID-19 Diagnosis 02/21/2020 09:49:23 AM ES [facility] Surgeries/Procedures Procedure Description Date Indications Data Source(s) CYSTO W/SIMPLE REMOVAL STONE & STENT 03/08/2020 12:00: 00 AM EST MEDENT ([facility]) FL RETROGRADE PYELOGRAM RIGHT FL RETROGRADE PYELOGRAM RIGHT S TAT 02/25/2020 1:02 PM EST 02/25/2020 06:02:09 PM EST [facility] GLUC BLD GLUC MNTR DEV CLEARED FDA SPEC HOME USE POCT GLUCOSE Routine 02/25/2020 12:51 PM EST 02/25/2020 05:51:00 PM EST [facility] GLUC BLD GLUC MNTR DEV CLEARED FDA SPEC HOME USE POCT GLUCOSE Routine 02/25/2020 9:27 AM EST 02/25/2020 02:27:00 PM [facility] CYSTO W/INSERT URETERAL STENT 02/25/2020 12:00:[address] [facility] ([facility]) CYSTO W/URETEROSCOPY W/RMVL/MANJ STONES 02/25/2020 12: 00:00 AM EST MED[facility] ([facility]) CYSTO W/URETEROSCOPY W/LITHOTRIPSY 02/25/2020 12:00:00 AM EST MEDENT ([facility]) Echocardiography, Tranthoracic Real-Time Image Documentation 01/23/2020 12:00:00 AM EDT [facility] ([facility]) Electrocardiogram Interpretation & Report Only 020 12:00:00 AM EDT MEDENT ([facility]) CYSTO W/INSERT URETERAL STENT 01/20/2020 12:00:00 AM E DT MEDENT ([facility] CT ABDOMEN & PELVIS W/O CONTRAST MATERIAL 01/20/2020 1 2:00:00 AM EDT MEDENT ([facility]) X-RAY URINARY TRACT EXAM WITH CONTRAST MATERIAL 2019 12:00:00 AM EDT MEDENT ([facility]) Physical Therapy Eval - Low Complexity 01/07/2020 12:0 0:00 AM EDT MEDENT ([facility]) RADEX ANKLE COMPLETE MINIMUM 3 VIEWS 12/30/2019 12:00: 00 AM EDT [facility] ([facility]) RADEX ANKLE COMPLETE MINIMUM 3 VIEWS 12/05/2019 12:00: 00 AM EDT MEDENT ([facility] ) FX Lateral Malleolus (Distal [...] 09/29/2019 12:00:00 AM EDT MEDENT ([facility]) CV STRS TST XERS&/OR RX CONT ECG PHYS SI&R 09/29/2019 12:00:00 AM EDT [facility] ([facility]) US RETROPERITONEAL REAL TIME W/IMAGE COMPLETE 09/22/19 12:00:00 AM EDT [facility] ([facility]) US RETROPERITONEAL REAL TIME W/IMAGE COMPLETE 09/22/19 12:00:00 AM EDT [facility] ([facility]) ECG ROUTINE ECG W/LEAST 12 LDS W/I&R 09/02/2019 12:00: 00 AM EDT [facility] ([facility]) Results ID Date Data Source [id number] 04/13/2020 12:00:00 AM EST [facility] Name Value Range Interpretation Code Description Data Daphney rce(s) Supporting Document(s) Carestart Rapid COVID Antigen Test Positive [facility] This lab was reported by Madeline altamirano. ID Date Data Source [id number] 04/13/2020 12:00:00 AM EST [facility] Name Value Range Interpretation Code Description Data Daphney rce(s) Supporting Document(s) SARS-CoV-2 (COVID-19) RNA [Presence] in Respiratory specimen by [facility] with probe detection Not Detected [facility] This lab was ordered by [facility] and reported by [facility]. ID Date Data Source [id number] 03/30/2020 12:00:00 AM EST [facility] Name Value Range Interpretation Code Description Data Daphney rce(s) Supporting Document(s) SARS coronavirus 2 RNA Not Detected [facility] [place] This lab was ordered by [facility] and rep orted by [facility]. ID Date Data Source [id number] 03/08/2020 12:43:00 PM EST [facility] ([facility] Name Value Range Interpretation Code Description Data Daphney rce(s) Supporting Document(s) Glucose [Presence] in Urine Laboratory test result [facility] ([facility]) Protein [Presence] in Urine by Test strip Laboratory test result [facility] ([facility]) Ua Nitrite Laboratory test result [place] DENT ([facility]) Blood [Presence] in Urine by Visual Laboratory test result [facility] ([facility]) Ua Leuko Laboratory test result [place] [facility] ([facility]) Color of Urine Laboratory test result [facility] ([facility]) Ketones [Presence] in Urine by Test strip Laboratory test result [facility] ([facility]) Clarity of Urine Laboratory test result [facility] ([facility]) Ua Specific [place] 1.015 1.003-1.030 MEDE NT ([facility]) Bilirubin.total [Presence] in Urine by Test strip Laboratory test res ult MEDENT ([facility]) pH of Urine by Test strip 5.5 5.0-7.5 [facility] ([facility]) Urobilinogen [Mass/volume] in Urine by Test strip 0.2 E.U./dL 0.0-1.0 MEDENT ([facility]) ID Date Data Source [id number] 03/08/2020 11:28:00 AM EST [facility] XRAY ABDOMEN KUBCLINICAL [...] rce(s) Supporting Document(s) ID Date Data Source [id number] 02/25/2020 07:26:00 PM EST [facility] ([facility] Name Value Range Interpretation Code Description Data Daphney rce(s) Supporting Document(s) Laboratory test finding (navigational concept) 140 mg/dL 70-99 MED[facility] ([facility] [place]) PERFORMED BY [facility] ID Date Data Source [id number] 02/25/2020 01:55:29 PM EST [address] [address]Gjrjoqc Name: JOSE VILLATORODOB: 1955Sex: MOrdering Provider: SARTHAK Bustamante Prov: SARTHAK Kohler Provider: Procedure Performed: FL RETROGRADE PYELOGRAM RIGHTExam Date: 02/25/2020 13:02MRN: [id number] Number: [id number] Class: InpatientAccount #: [id number] for Exam: Right ureteral stone [N20.1]Technique: Fluoroscopy with no digital spot images obtained.Fluoroscopy time: 11 SecondsNumber of Spot Images: 0Comparison: NoneFindings: C-arm was performed in OR. 7 spot radiographs are obtained. Fluoroscopic time: 11.2 seconds. There is placement of a ureteral stent.IMPRESSION: C-arm in OR as described.Report electronically signed by: JAMES CARBAJAL On 02/25/2020 1:55 PMWorkstation ID: [id number] Name Value Range Interpretation Code Description Data Daphney rce(s) Supporting Document(s) ID Date Data Source [id number] 02/25/2020 02:26:46 PM EST [facility] [place] [facility] [place] Name Value Range Interpretation Code Description Data Daphney rce(s) Supporting Document(s) POC NOVA GLU 140 mg/dL (70-99) H Lab [place] [facility] [place] [facility] PERFORMED BY [facility] STAFF ID Date Data Source [id number] 02/25/2020 11:56:00 AM EST [facility] ([facility]) Name Value Range Interpretation Code Description Data [facility] rce(s) Supporting Document(s) Composition in Stone Laboratory test result MEDENT ([facility]) Calculi composed primarily of: 90% calcium [...] composition determined by FTIR analysis. Performed By: [facility] [address] [place] [id number] Rinkman: Ny Mckeon MD Size [Entitic volume] of [facility] Laboratory test result [facility] ([facility]) Unit: mm Number of Stones 1 [facility] ([facility]) Weight of Unspecified specimen 166 mg [facility] ([facility]) Appearance of Stone Laboratory test result [facility] ([facility]) Specimen consists of a single, large, brown, irregular calculus. ID Date Data Source [id number] 02/29/2020 07:49:20 AM EST [facility] [place] [facility] [place] Name Value Range Interpretation Code Description Data [facility] rce(s) Supporting Document(s) COMPOSITION [facility] [place] [facility] See Note Calculi composed primarily of: [...] composition determined by FTIR analysis. Performed By: [facility] [address] [place] [address] Rinkman: Ny Mckeon MD MASS 166 mg [facility] [place] [facility] [place] CALCULI NUMBER 1 [facility] [place] [facility] [place] CALCULI SIZE [facility] [place] > 9Unit: mm CALCULI DESCRIPTION [facility] [place] See Note Specimen consists of a single, large, brown, irregular calculus. ID Date Data Source [id number] 02/25/2020 11:49:00 AM EST [facility] INFORMATIONPatient MRN Name Date of Age Gend*PT [id number] Alexei Villatororicky Bernard 1955 64 years M SDCXPT Location Admission Date/Time Visit [facility] --- Sarthak Montana MD([id number]) EPI ID CSN Admitting Provider [id number] Sarthak Montana MD([id number])OPERATIVE NOTEPatient Name: Jose VillatoroMedical Record Number: [id number] [id number] Procedure: 02/25/2020Surgeon: Sarthak Montana M.D.Pre-operative diagnosis: right ureteral calculiPost-operative diagnosis: SameProcedure: cystoscopy, right ureteroscopy, basket stone removal, right ureteralstent exchangeAnesthesia: GABlood/fluids administered: crystalloidEstimated blood loss: minimalComplications: NoneSpecimens: right ureteral calculiDrains: Right 6 Macedonian multi-length ureteral stentProcedure:Informed consent was obtained. Antibiotics [...] a w blanka in place.A right 6 Macedonian multi-length ureteral stent was placed using cystoscopic andfluoroscopic guidance without difficulty.The bladder was emptied and the scope was withdrawn.There were no surgical complications.Sarthak Montana M.D.Date: 02/25/2020Time: 11:46 AM Name Value Range Interpretation Code Description Data Daphney rce(s) Supporting Document(s) ID Date Data Source [id number] 02/25/2020 10:06:34 AM EST [facility] INFORMATIONPatient MRN Name Date of Age Gend*PT [id number] Jose Villatoro 1955 64 years M SDCXPT Location Admission Date/Time Visit ID [facility]20816 --- Sarthak Montana MD([id number]) EPI ID [facility] Admitting Provider [id number] Sarthak Montana MD([id number])Pre-Procedure History and Physical:The history and physical were reviewed and the patient was examined.Reviewed and updated. No changes.Sarthak Montana MD02/24/2010:06 AM Name Value Range Interpretation Code Description Data Daphney rce(s) Supporting Document(s) ID Date Data Source [id number] 02/25/2020 09:27:00 AM EST [facility] ([facility] [place]) Name Value Range Interpretation Code Description Data Daphney rce(s) Supporting Document(s) Glucose [Mass/volume] in Capillary blood by Glucometer 140 mg/dL 70- 99 [facility] ([facility] [place]) PERFORMED BY [facility] ID Date Data Source [id number] 02/25/2020 09:30:08 AM EST [facility] [place] [facility] Name Value Range Interpretation Code Description Data Daphney rce(s) Supporting Document(s) POC NOVA GLU 143 mg/dL (70-99) H Lab [facility] PERFORMED BY [facility] ID Date Data Source [id number] 02/21/2020 09:40:00 AM EST [facility] Name Value Range Interpretation Code Description Data Daphney rce(s) Supporting Document(s) SARS coronavirus 2 RNA [facility] This lab was ordered by [facility] [place] [facility] and reported by [employer]. ID Date Data Source [id number] 02/22/2020 05:08:25 PM EST Lab [facility] Name Value Range Interpretation Code Description Data Daphney rce(s) Supporting Document(s) SARS-COV-2 ASCENCION Lab [facility] Not DetectedReference range: Not Detecte d This nucleic acid amplification test was developed and its performance characteristics determined by [employer]. Nucleic acid amplification tests include PCR and [...] detected) result in this assay. Performed At: [facility] [address] [place], [place] [id number] Johnny Church PhD Ph:[phone] ID Date Data Source [id number] 02/02/2020 12:54:00 PM EST [facility] ([facility] [place]) Name Value Range Interpretation Code Description Data Daphney rce(s) Supporting Document(s) Protein [Presence] in Urine by Test strip Laboratory test result [facility] ([facility] [place]) Glucose [Presence] in Urine Laboratory test result [facility] ([facility]) Ua Nitrite Laboratory test result [facility] ([facility]) Blood [Presence] in Urine by Visual Laboratory test result [facility] ([facility]) Ua Leuko Laboratory test result [facility] ([facility]) Color of Urine Laboratory test result [facility] ([facility]) Clarity of Urine Laboratory test result [facility] ([facility]) Ketones [Presence] in Urine by Test strip Laboratory test result [facility] ([facility]) Bilirubin.total [Presence] in Urine by Test strip Laboratory test res ult [facility] ([facility]) Ua Specific [place] 1.015 1.003-1.030 MEDE NT ([facility]) pH of Urine by Test strip 5.5 5.0-7.5 [facility] ([facility]) Urobilinogen [Mass/volume] in Urine by Test strip 0.2 E.U./dL 0.0-1.0 [facility] ([facility]) ID Date Data Source [id number] 02/02/2020 11:47:00 AM EST [facility] AssociatesEXAM: XRAY ABDOMEN KUBCLINICAL HISTORY: [...] rce(s) Supporting Document(s) ID Date Data Source [id number] 01/25/2020 02:17:00 PM EST [facility] ([facility]) Name Value Range Interpretation Code Description Data Daphney rce(s) Supporting Document(s) Sodium 145 [facility] (Cardiology A ssociates of [facility]) Calcium [Mass/volume] in Serum or Plasma 8.0 [facility] ([facility]) Chloride [Moles/volume] in Serum or Plasma 115 [facility] ([facility]) Carbon dioxide, total [Moles/volume] in Serum or Plasma 23 [facility] ([facility]) Potassium [Moles/volume] in Serum or Plasma 3.8 [facility] ([facility]) Creatinine 1.29 0.80-1.30 [facility] ([facility]) Blood Urea Nitrogen 17 7-24 [facility] (Ca rdiology Associates [facility]) Glucose 192 70-99 [facility] ([facility]) Glomerular filtration rate/1.73 sq M.pre dicted [Volume Rate/Area] in Serum or Plasma by Creatinine-based formula (MDRD) 56 [facility] ([facility]) ID Date Data Source [id number] 01/25/2020 02:17:00 PM EST [facility] ([facility]i [facility]) Name Value Range Interpretation Code Description Data [facility] rce(s) Supporting Document(s) Red Blood Count 3.88 4.60-6.10 [facility] (Cardio logy Associates of [facility]) White Blood Count 10.1 4.1-11.0 [facility] (Card iology [facility] of [facility]) Hemoglobin 12.6 13.5-18.0 [facility] ([facility]) Hematocrit 37.6 41.0-53.0 [facility] ([facility]) Platelets 192 150-450 [facility] ([facility]iology [facility]ates [facility]) ID Date Data Source [id number] 01/25/2020 06:18:00 AM EST [facility] ([facility] [place]) Name Value Range Interpretation Code Description Data Daphney rce(s) Supporting Document(s) Sodium [Moles/volume] in Serum or Plasma 145 mmol/L 136-145 [facility] ([facility]) Carbon dioxide, total [Moles/volume] in Serum or Plasma 23 mmol/L 22 -31 [facility] ([facility]) Potassium 3.8 mmol/L 3.6-5.2 [facility] ([facility]) Chloride [Moles/volume] in Serum or Plasma 115 mmol/L 100-108 [facility] ([facility]) Creatinine [Mass/volume] in Serum or Plasma 1.29 mg/dL 0.80-1.30 [facility] ([facility]) Urea nitrogen [Mass/volume] in Serum or Plasma 17 mg/dL 7-24 [facility] ([facility]) Anion gap 3 in Serum or Plasma 7 mmol/L 7-16 [facility] ([facility]) Urea nitrogen/Creatinine [Mass Ratio] in Serum or Plasma 13.2 RATIO 10.0-20.0 [facility] ([facility]) Calcium [Mass/volume] in Serum or Plasma 8.0 mg/dL 8.4-10.2 [facility] ([facility]) Glucose [Mass/volume] in Serum or Plasma 192 mg/dL 70-99 [facility] ([facility]) Glomerular filtration rate/1.73 sq M.pre dicted [Volume Rate/Area] in Serum or Plasma by Creatinine-based formula (MDRD) 56 ml/min/1.73m2 [facility] ([facility]) GFR Interpretation Laboratory test result [facility] ([facility]) <content></content>
<content> </con tent>
<content>NORMAL KIDNEY [...] formula (MDRD) Laboratory test result [facility] ([facility]) ID Date Data Source [id number] 01/25/2020 06:18:00 AM EST [facility] ([facility]) Name Value Range Interpretation Code Description Data Daphney rce(s) Supporting Document(s) Erythrocytes [#/volume] in Blood by Automated count 3.88 10*6/uL 4.60 -6.10 [facility] ([facility]) Leukocytes [#/volume] in Blood by Automated count 10.1 10*3/uL 4.1-11 .0 [facility] ([facility] [place]) Hematocrit [Volume Fraction] of Blood by Automated count 37.6 % 4 1.0-53.0 [facility] ([facility]) Hemoglobin [Mass/volume] in Blood 12.6 g/dL 13.5-18.0 [facility] ([facility]) Erythrocyte mean corpuscular hemoglobin [Entitic mass] by Automated count 32.3 pg 27.0-32.0 [facility] ([facility]) Erythrocyte mean corpuscular hemoglobin concentration [Mass/volume] by Automated count 33.4 g/dL 32.0-36.0 [facility] ([facility]) Erythrocyte mean corpuscular volume [Entitic volume] by Auto mated count 96.8 fL 80.0-95.0 [facility] ([facility]) Platelets [#/volume] in Blood by Automated count 192 10*3/uL 150-450 [facility] ([facility]) Platelet mean volume [Entitic volume] in Blood by Automated count 8.8 fL 7.1-10.7 [facility] ([facility]) Erythrocyte distribution width [Ratio] by Automated count 14.2 % 10.5-14.5 [facility] ([facility]) ID Date Data Source [id number] 01/25/2020 07:12:35 AM EST [facility] [place] [facility] [place] Name Value Range Interpretation Code Description Data Daphney rce(s) Supporting Document(s) SODIUM 145 mmol/L (136-145) [facility] [place] [facility] [place] POTASSIUM 3.8 mmol/L (3.6-5.2) [facility] [place] [facility] [place] CHLORIDE 115 mmol/L (100-108) H [facility] [place] [facility] [place] CO2 23 mmol/L (22-31) [facility] [place] [facility] [place] ANION GAP 7 mmol/L (7-16) [facility] [place] [facility] [place] UREA NITROGEN 17 mg/dL (7-24) [facility] [place] [facility] [place] CREATININE 1.29 mg/dL (0.80-1.30) [facility] [place] [facility] [place] BUN/CREAT RATIO 13.2 RATIO (10.0-20.0) [facility] [place] GLUCOSE 192 mg/dL (70-99) H [facility] [place] [facility] [place] CALCIUM 8.0 mg/dL (8.4-10.2) L [facility] [place] [facility] [place] GFR 56 ml/min/1.73m2 (>59) L [facility] [place] [facility] [place] GFR ( AMER) >60 ml/min/1.73m2 (>59) [facility] [place] [facility] [place] GFR INTERPRETATION [facility] [place] --NORMAL KIDNEY FUNCTION OR MILD DISEASE - GFR >OR= 60CHRONIC KIDNEY DISEASE - GFR 15 - 59RENAL FAILURE - GFR <15 Est. GFR calculation based on the MDRDstudy equation, which assumes a steadystate for creatinine. Est. GFR should notbe used for medication dosing. ID Date Data Source [id number] 01/25/2020 06:57:56 AM EST [facility] [place] [facility] [place] Name Value Range Interpretation Code Description Data Daphney rce(s) Supporting Document(s) WBC 10.1 10*3/uL (4.1-11.0) [facility] [place] [facility] [place] RBC 3.88 10*6/uL (4.60-6.10) L [facility] [place] [facility] [place] HGB 12.6 g/dL (13.5-18.0) L [facility] [place] [facility] [place] HCT 37.6 % (41.0-53.0) L [facility] [place] [facility] [place] MCV 96.8 fL (80.0-95.0) H [facility] [place] [facility] [place] MCH 32.3 pg (27.0-32.0) H [facility] [place] [facility] [place] MCHC 33.4 g/dL (32.0-36.0) [facility] [place] [facility] [place] RDW 14.2 % (10.5-14.5) [facility] [place] [facility] [place] PLT 192 10*3/uL (150-450) [facility] [place] [facility] [place] MPV 8.8 fL (7.1-10.7) [facility] [place] [facility] [place] ID Date Data Source [id number] 01/24/2020 09:50:00 AM EDT [facility] [...] hydronephrosis. D7End of diagnostic report for accession: [id number] Interpreted: Juvenal Elmore MDTranscribed: 01/24/2020 09:38 AMSigned: 01/24/2020 09:50 AM Juvenal Elmore MD [facility] # [id number] BILL # [id number] Name Value Range Interpretation Code Description Data Daphney rce(s) Supporting Document(s) ID Date Data Source [id number] 01/24/2020 06:57:00 AM EDT [facility] ([facility]) Name Value Range Interpretation Code Description Data Daphney rce(s) Supporting Document(s) Sodium [Moles/volume] in Serum or Plasma 141 mmol/L 136-145 [facility] ([facility]) Potassium 3.7 mmol/L 3.6-5.2 [facility] ([facility]) Chloride [Moles/volume] in Serum or Plasma 112 mmol/L 100-108 [facility] ([facility]) Carbon dioxide, total [Moles/volume] in Serum or Plasma 21 mmol/L 22 -31 [facility] ([facility]) Anion gap 3 in Serum or Plasma 8 mmol/L 7-16 [facility] ([facility]) Urea nitrogen [Mass/volume] in Serum or Plasma 19 mg/dL 7-24 [facility] ([facility]) Urea nitrogen/Creatinine [Mass Ratio] in Serum or Plasma 13.2 RATIO 10.0-20.0 [facility] ([facility]) Creatinine [Mass/volume] in Serum or Plasma 1.44 mg/dL 0.80-1.30 [facility] ([facility]) Glucose [Mass/volume] in Serum or Plasma 197 mg/dL 70-99 [facility] ([facility]) Glomerular filtration rate/1.73 sq M pre dicted among blacks [Volume Rate/Area] in Serum or Plasma by Creatinine-based formula (MDRD) Laboratory test result [facility] ([facility]) Calcium [Mass/volume] in Serum or Plasma 7.7 mg/dL 8.4-10.2 [facility] ([facility]) Glomerular filtration rate/1.73 sq M.pre dicted [Volume Rate/Area] in Serum or Plasma by Creatinine-based formula (MDRD) 50 ml/min/1.73m2 [facility] ([facility] [place]) GFR Interpretation Laboratory test result [facility] ([facility] [place]) <content></content>
<content> </con tent>
<content>NORMAL KIDNEY FUNCTION</content>
<content> OR MILD DISEASE - GFR >OR= 60</content>
<content>CHRONIC KIDNEY DISEASE - GFR 15 - 59</content>
<content>RENAL FAILURE - GFR <15</content>
<content> </content>< br/><content>Est. GFR calculation based on the MDRD</content>
<content>study equation, which assumes a steady</content>
<content>state for creatinine. Est. GFR should not</content>
<content>be used for medication dosing.</content>
<content></content> ID Date Data Source [id number] 01/24/2020 06:57:00 AM EDT [facility] ([facility]) Name Value Range Interpretation Code Description Data Daphney rce(s) Supporting Document(s) Erythrocytes [#/volume] in Blood by Automated count 4.04 10*6/uL 4.60 -6.10 [facility] ([facility]) Leukocytes [#/volume] in Blood by Automated count 11.8 10*3/uL 4.1-11 .0 [facility] ([facility]) Erythrocyte mean corpuscular volume [Entitic volume] by Auto mated count 97.1 fL 80.0-95.0 [facility] Hematocrit [Volume Fraction] of Blood by Automated count 39.2 % 4 1.0-53.0 [facility] ([facility]) Hemoglobin [Mass/volume] in Blood 12.9 g/dL 13.5-18.0 [facility] ([facility]) Erythrocyte distribution width [Ratio] by Automated count 14.1 % 10.5-14.5 [facility] ([facility]) Erythrocyte mean corpuscular hemoglobin concentration [Mass/volume] by Automated count 32.8 g/dL 32.0-36.0 [facility] ([facility]) Erythrocyte mean corpuscular hemoglobin [Entitic mass] by Automated count 31.8 pg 27.0-32.0 [facility] ([facility]) Platelet mean volume [Entitic volume] in Blood by Automated count 9.0 fL 7.1-10.7 [facility] ([facility]) Platelets [#/volume] in Blood by Automated count 152 10*3/uL 150-450 [facility] ([facility]) ID Date Data Source [id number] 01/24/2020 07:48:27 AM EDT [facility] [place] [facility] [place] Name Value Range Interpretation Code Description Data Daphney rce(s) Supporting Document(s) SODIUM 141 mmol/L (136-145) [facility] [place] [facility] [place] POTASSIUM 3.7 mmol/L (3.6-5.2) [facility] [place] [facility] [place] CHLORIDE 112 mmol/L (100-108) H [facility] [place] [facility] [place] CO2 21 mmol/L (22-31) L [facility] [place] [facility] [place] ANION GAP 8 mmol/L (7-16) [facility] [place] [facility] [place] UREA NITROGEN 19 mg/dL (7-24) [facility] [place] [facility] [place] CREATININE 1.44 mg/dL (0.80-1.30) H [facility] [place] [facility] [place] BUN/CREAT RATIO 13.2 RATIO (10.0-20.0) [facility] [place] GLUCOSE 197 mg/dL (70-99) H [facility] [place] [facility] [place] CALCIUM 7.7 mg/dL (8.4-10.2) L [facility] [place] [facility] [place] GFR 50 ml/min/1.73m2 (>59) L [facility] [place] [facility] [place] GFR ( AMER) >60 ml/min/1.73m2 (>59) [facility] [place] [facility] [place] GFR INTERPRETATION [facility] [place] --NORMAL KIDNEY FUNCTION OR MILD DISEASE - GFR >OR= 60CHRONIC KIDNEY DISEASE - GFR 15 - 59RENAL FAILURE - GFR <15 Est. GFR calculation based on the MDRDstudy equation, which assumes a steadystate for creatinine. Est. GFR should notbe used for medication dosing. ID Date Data Source [id number] 01/24/2020 07:37:38 AM EDT [facility] [place] [facility] [place] Name Value Range Interpretation Code Description Data Daphney rce(s) Supporting Document(s) WBC 11.8 10*3/uL (4.1-11.0) H [facility] [place] [facility] [place] RBC 4.04 10*6/uL (4.60-6.10) L [facility] [place] [facility] [place] HGB 12.9 g/dL (13.5-18.0) L [facility] [place] [facility] [place] HCT 39.2 % (41.0-53.0) L [facility] [place] [facility] [place] MCV 97.1 fL (80.0-95.0) H [facility] [place] [facility] [place] MCH 31.8 pg (27.0-32.0) [facility] [place] [facility] [place] MCHC 32.8 g/dL (32.0-36.0) [facility] [place] [facility] [place] RDW 14.1 % (10.5-14.5) [facility] [place] [facility] [place] PLT 152 10*3/uL (150-450) [facility] [place] [facility] [place] MPV 9.0 fL (7.1-10.7) [facility] [place] [facility] [place] ID Date Data Source [id number] 01/23/2020 11:00:00 AM EDT [facility] ([facility] [place]) Name Value Range Interpretation Code Description Data Daphney rce(s) Supporting Document(s) Leukocytes [#/volume] in Blood by Automated count 14.4 10*3/uL 4.1-11 .0 [facility] ([facility] [place]) Erythrocytes [#/volume] in Blood by Automated count 3.93 10*6/uL 4.60 -6.10 [facility] ([facility]) Erythrocyte mean corpuscular volume [Entitic volume] by Auto mated count 96.3 fL 80.0-95.0 [facility] ([facility]) Hemoglobin [Mass/volume] in Blood 12.4 g/dL 13.5-18.0 [facility] ([facility]) Hematocrit [Volume Fraction] of Blood by Automated count 37.8 % 4 1.0-53.0 [facility] ([facility]) Erythrocyte mean corpuscular hemoglobin concentration [Mass/volume] by Automated count 32.8 g/dL 32.0-36.0 [facility] ([facility]) Erythrocyte mean corpuscular hemoglobin [Entitic mass] by Automated count 31.6 pg 27.0-32.0 [facility] ([facility]) Erythrocyte distribution width [Ratio] by Automated count 14.4 % 10.5-14.5 [facility] ([facility]) Platelets [#/volume] in Blood by Automated count 161 10*3/uL 150-450 [facility] ([facility]) Platelet mean volume [Entitic volume] in Blood by Automated count 9.1 fL 7.1-10.7 [facility] ([facility]) ID Date Data Source [id number] 01/23/2020 11:00:00 AM EDT [facility] ([facility]) Name Value Range Interpretation Code Description Data Daphney rce(s) Supporting Document(s) Sodium [Moles/volume] in Serum or Plasma 138 mmol/L 136-145 [facility] ([facility]) Potassium 3.6 mmol/L 3.6-5.2 [facility] ([facility]) Chloride [Moles/volume] in Serum or Plasma 106 mmol/L 100-108 [facility] ([facility]) Carbon dioxide, total [Moles/volume] in Serum or Plasma 25 mmol/L 22 -31 [facility] ([facility]) Anion gap 3 in Serum or Plasma 7 mmol/L 7-16 [facility] ([facility]) Creatinine [Mass/volume] in Serum or Plasma 1.56 mg/dL 0.80-1.30 [facility] ([facility]) Urea nitrogen [Mass/volume] in Serum or Plasma 20 mg/dL 7-24 [facility] ([facility]) Calcium [Mass/volume] in Serum or Plasma 7.7 mg/dL 8.4-10.2 [facility] ([facility]) Glucose [Mass/volume] in Serum or Plasma 142 mg/dL 70-99 [facility] ([facility]) Urea nitrogen/Creatinine [Mass Ratio] in Serum or Plasma 12.8 RATIO 10.0-20.0 [facility] ([facility]) GFR Interpretation Laboratory test result [facility] ([facility]) <content></content>
<content> </con tent>
<content>NORMAL KIDNEY [...] Creatinine-based formula (MDRD) 55 ml/min/1.73m2 [facility] ([facility]) Glomerular filtration rate/1.73 sq M.pre dicted [Volume Rate/Area] in Serum or Plasma by Creatinine-based formula (MDRD) 45 ml/min/1.73m2 [facility] ([facility] [place]) ID Date Data Source [id number] 01/23/2020 11:00:00 AM EDT [facility] ([facility] [place]) Name Value Range Interpretation Code Description Data Daphney rce(s) Supporting Document(s) Troponin I.cardiac [Mass/volume] in Serum or Plasma Laboratory test result [facility] ([facility] [place]) Less than 0.05: Myocardial injury unlike ly Greater than or equal to 0.05: Highly suggestive of myocardial injury Correlation with rise and/or fall of serial troponins, clinical symptoms and ECG changes is necessary. ID Date Data Source [id number] 01/23/2020 12:02:00 PM EDT [facility] Name Value Range Interpretation Code Description Data Daphney rce(s) Supporting Document(s) TROPONIN I <0.05 ng/mL (<0.05) [facility] [place] Less than 0.05: Myocardial injury unlike lyGreater than or equal to 0.05: Highly suggestive of myocardial injuryCorrelation with rise and/or fall ofserial troponins, clinical symptomsand ECG changes is necessary. ID Date Data Source [id number] 01/23/2020 12:02:00 PM EDT [facility] Name Value Range Interpretation Code Description Data Daphney rce(s) Supporting Document(s) SODIUM 138 mmol/L (136-145) [facility] POTASSIUM 3.6 mmol/L (3.6-5.2) [facility] CHLORIDE 106 mmol/L (100-108) [facility] CO2 25 mmol/L (22-31) [facility] ANION GAP 7 mmol/L (7-16) [facility] UREA NITROGEN 20 mg/dL (7-24) [facility] CREATININE 1.56 mg/dL (0.80-1.30) H [facility] BUN/CREAT RATIO 12.8 RATIO (10.0-20.0) [facility] GLUCOSE 142 mg/dL (70-99) H [facility] CALCIUM 7.7 mg/dL (8.4-10.2) L [facility] GFR 45 ml/min/1.73m2 (>59) L [facility] GFR ([facility]) 55 ml/min/1.73m2 (>59) L [facility] GFR INTERPRETATION [facility] --NORMAL KIDNEY FUNCTION OR MILD DISEASE - GFR >OR= 60CHRONIC KIDNEY DISEASE - GFR 15 - 59RENAL FAILURE - GFR <15 Est. GFR calculation based on the MDRDstudy equation, which assumes a steadystate for creatinine. Est. GFR should notbe used for medication dosing. ID Date Data Source [id number] 01/23/2020 11:38:24 AM EDT [facility] Name Value Range Interpretation Code Description Data Daphney rce(s) Supporting Document(s) WBC 14.4 10*3/uL (4.1-11.0) H [facility] RBC 3.93 10*6/uL (4.60-6.10) L [facility] HGB 12.4 g/dL (13.5-18.0) L [facility] HCT 37.8 % (41.0-53.0) L [facility] MCV 96.3 fL (80.0-95.0) H [facility] MCH 31.6 pg (27.0-32.0) [facility] MCHC 32.8 g/dL (32.0-36.0) [facility] RDW 14.4 % (10.5-14.5) [facility] PLT 161 10*3/uL (150-450) [facility] MPV 9.1 fL (7.1-10.7) [facility] ID Date Data Source [id number] 01/23/2020 02:30:56 AM EDT [facility] Name Value Range Interpretation Code Description Data Daphney rce(s) Supporting Document(s) TROPONIN I <0.05 ng/mL (<0.05) [facility] [place] Less than 0.05: Myocardial injury unlike lyGreater than or equal to 0.05: Highly suggestive of myocardial injuryCorrelation with rise and/or fall ofserial troponins, clinical symptomsand ECG changes is necessary. ID Date Data Source [id number] 01/22/2020 07:55:00 PM EDT [facility] DATE OF EXAM: 01/22/2020EXAM: Chest 2V I [...] elevation. X5End of diagnostic report for accession: [id number] Interpreted: Marisel Davila MDTranscribed: 01/22/2020 07:52 PMSigned: 01/22/2020 07:55 PM Marisel Davila MD [facility] # [id number] [facility] # [id number] Name Value Range Interpretation Code Description Data Daphney rce(s) Supporting Document(s) ID Date Data Source [id number] 01/22/2020 06:58:33 PM EDT [facility] [place] Name Value Range Interpretation Code Description Data Daphney rce(s) Supporting Document(s) TROPONIN I <0.05 ng/mL (<0.05) [facility] [place] Less than 0.05: Myocardial injury unlike lyGreater than or equal to 0.05: Highly suggestive of myocardial injuryCorrelation with rise and/or fall ofserial troponins, clinical symptomsand ECG changes is necessary. ID Date Data Source [id number] 01/22/2020 06:58:33 PM EDT [facility] [place] Name Value Range Interpretation Code Description Data Daphney rce(s) Supporting Document(s) SODIUM 138 mmol/L (136-145) [facility] POTASSIUM 3.9 mmol/L (3.6-5.2) [facility] CHLORIDE 106 mmol/L (100-108) [facility] CO2 24 mmol/L (22-31) [facility] ANION GAP 8 mmol/L (7-16) [facility] UREA NITROGEN 16 mg/dL (7-24) [facility] CREATININE 1.60 mg/dL (0.80-1.30) H [facility] BUN/CREAT RATIO 10.0 RATIO (10.0-20.0) [facility] GLUCOSE 156 mg/dL (70-99) H [facility] CALCIUM 8.6 mg/dL (8.4-10.2) [facility] GFR 44 ml/min/1.73m2 (>59) L [facility] GFR ( AMER) 53 ml/min/1.73m2 (>59) L [facility] GFR INTERPRETATION [facility] --NORMAL KIDNEY FUNCTION OR MILD DISEASE - GFR >OR= 60CHRONIC KIDNEY DISEASE - GFR 15 - 59RENAL FAILURE - GFR <15 Est. GFR calculation based on the MDRDstudy equation, which assumes a steadystate for creatinine. Est. GFR should notbe used for medication dosing. ID Date Data Source [id number] 01/22/2020 06:37:48 PM EDT [facility] [place] Name Value Range Interpretation Code Description Data [facility](s) Supporting Document(s) WBC 16.0 10*3/uL (4.1-11.0) H [facility] RBC 4.67 10*6/uL (4.60-6.10) [facility] HGB 14.7 g/dL (13.5-18.0) [facility] HCT 45.2 % (41.0-53.0) [facility] MCV 96.7 fL (80.0-95.0) H [facility] MCH 31.4 pg (27.0-32.0) [facility] MCHC 32.5 g/dL (32.0-36.0) [facility] RDW 14.5 % (10.5-14.5) [facility] PLT 163 10*3/uL (150-450) [facility] MPV 8.2 fL (7.1-10.7) [facility] ID Date Data Source [id number] 01/23/2020 07:46:00 PM EDT [facility] [address] [place], [place] [address]PATIENT NAME: JOSE VILLATORODATE OF : 1955REPORT: CONSULTATIONPATIENT NUMBER: [id number] STATUS: IPMEDICAL RECORD NUMBER: [id number]: [facility] HOSPITALIST CONSULTATIONDATE OF CONSULTATION: 01/22/2020CONSULT REQUESTED [...] four hours PRNPRN Reason: painExtended Instructions: istop [id number] MaxDailyDose- 6Medication Status: activeomeprazole 40 mg capsule,delayed [...] also request a chest x-ray. Will request supervisor correspondence section covering hospitalist to follow overnight work up.Thank you for this consult. Hospitalist team will follow with you.DICTATED BY: JOSSELIN Hayictated: 01/22/2020 18:00DT: 01/22/2020 18:09Job #: [id number]: Quinton Pride MDNOTE: [facility] computer generated reports are notconfirmed or authenticated unless they are signed by the providerElectronically Authenticated and Edited by:ADELINA ALCARAZ MD On 01/23/2020 07:46 PM EDT Name Value Range Interpretation Code Description Data Daphney rce(s) Supporting Document(s) ID Date Data Source [id number] 01/22/2020 05:32:39 PM EDT [facility] Name Value Range Interpretation Code Description Data Daphney rce(s) Supporting Document(s) MUSE EKG PDF encoded [facility] MQLPPp7qIqWIGaOru2LjQjRzCWRzXM4dqvq9A8J1mXIrR6QatWOeq2jiC5SwL6NfCEIlYJOAIW1FtWLj jb2 [file] h9GA8WG6+n8P0RcYBr7wo1Q/T/0td+NaXSP/4d5++Nguyễn+WkP6eoa4a3t4Bs0/jhiRqM3xmYI+t3zXkY+ A7+D2d52Xl/WGq9J79HNF9w+estF/u08T7v0xWef+688tK+5Y3z6IyfGW3B/rb43wndm+SSn/3f0R9t5 Kvofhpx2aq7Tq9R/cyzrY9l5b/DKSbn/vzCxgns317 yAJxe37y1+WtPy9v+/XcfWtR8cfSeSvQ4vxh0B9+4/m2byzH+QgOqr1cy9j5M0wkK4mmgU9ws1kRx/Ld sl/dPGG/BhYkPgsxJcjTd7Z+G/VN/eqlwXfwUV/GsnvmH6ztzqs78BfEXK0pkS6b7W4MmU1N+nchN0X5 Aebo2ObQ3i2IIr4+XWm/egz9Ov7i3ejpIjoYxlrQ+b zyX4zi8aJZ+1V9G+aynw3Ay5i439Q+PZh/zwRfwO/07od3d4OJzmXgJI+RD/US7BtuKCxud+pXLw1+IP 4pmKj0o7e++Bk72AqFT026qIG2hTP4MmCmtn06h2zYHi/wLJLbsLvIs2Av+5K3yd9CV+gRAco0GF5l6i Q5Up1qf7W518pwDyU/xqkLa4vbZ/4hmbFeaQ91OPW/ wly6f1cIcZx386rw9KmS+7IV3g27jznKcqXEftUVM044pPyU9Mnbr5J1R6Ujmxh1IeNvFdYvAOFxqSwz XvrpbvR8n0W6rI1CCJ/L67abqFr8HnOw0cb65m4bk+2xutr+cUtxl3s0gClrQ+cd0Ps6UMgnt0aLfHZq pd5ikHsFv+M7A+OOsaXcQ109Xiv7+ld1gI/fV3s/VF XAF/OdSoko70Xx6qE0+sqE3LzvIstcc4lmWiB620sxg32xx4h2HwW2N5O9wA+2myzCw0FjRC0CqDJi6I Ze40AZsm5N5/qU86646r6zk4sV6ys4Uoq1whU0+Bv8AD/AP+Tvch17TJJts7V1NdHZ5+n5tT68dyi+jv o6+m/wR695X702AjW6Irb71iaZ6O74oQk/FNFkXK8l E801Irwr1y867zk5m+JeQ8oKwa+MUVVfo6u8EdrOcs7IpL8o2pd8vw/rhew7P/1i0wl5MkIe8cwgiBus iqjv2q0T1Fa37x2mp+3Mabouo0wuj0irGm+dbnS2U983zIE/3pdoPQo2cSa9w+D3jt0KYouUOgg0yA0E A/UNjM+bO0IzrY+n9zuo8Vsy/nMJV96nQ7ekpdq5bq WBRq/70rK9Q5+v9/N6pG9M67RC/XZ0cK9FO+c6TwsOwuZQ5/cY+Vro7zx2MCg+qO+KhzxTud8E2ow4/M Y91F/94p7p/6A3xxMw5U/SAr7g+SD7iz1sg/xli7hn+av/1oC6re3oy/nnu66i5zc+L73B3+AH+IF8Ds c9dk0gHe843r0oD+or42sI9BrOOp/znWD7Tc+9J/fL LteJ5jr5+57b/6OUgsAh4l84Nv/W7/fSum0h24c0Ct8pR/gH/DN0PHUl8LJ+YVO33WGwXk3tj+45/bKN 8XB8koJxa93X7I+lb/iHi2AGGbNnlyXo/GvfqHdvfVfmf+tb6QA/wD+jv+H966m48ZvQf0E/q42O9r12 q5LDtV+QuKysg6b0hQKZ+2Pfjw3VnkgdWja90g3e9L cv/nhLDM4ZOktJSsOV6i/7bfncfx2c+obU4gYo910n538/ng3N6p6T9kU7My3LxWkfIOgZ15B49O22tG U8ph95Y3f+gI/xynp/wdJ+YZoNC4f/yrqn/xnsrOw83946Qg9ooXfVK3QWzvZi9Nk6G/aGrgJt8O/wez 4y7/tZEU3c4C0D1qukWH/AX+Tu8HEqO40j9BGV14Ir W4517qOiKi+En36CVTJ/4Pd+t+1n86E3aM/k39iD1jN+4PkF/gK/214G0wnGpcXrKfesF4G5Y4VId/JK W6cD/T0sb7Ht4b1obzp4gqD/ShvkRVc0Oy4Bc7Es6Fo61w0Kwz6m4cdJLk1/DWA7zn04Vn8+v0S1DDb+ t5Px4BmjKmNCppu0D6S8loH/Oafm7GH29E7fz+z0es DZuc67qx+t9Im6aP2dN3rj9sd8Bdfknig+B/U9qO/p+vro9a+n/eq2PR/rxw8A7Ub55uP3v3/eL/Ox8L win+6/Prr/+tGsSYaLk7F/wQ/wA/zzjcM+2t7us/VJT/3q6oGe+tVLWz/T+xABwp616anoo/uvY3/QsT /os8+sPl76V814z15yk/PP6vs2qB1WG4F/wG/7s+N8 u+T5eDkvOz3gG6c8MIv/6y+Xtk+87O7dQ8/f8P+PqwDN2xkVcUW/FqOm8rUUbTmqBhg/zlxCqqzk/tuc Fwnr+WyUpfNDSZeP5WIt9/hFb20o9F10cvRanM3D5Ke/VfrA+ZL8NyaV04Y+G9/sCbBX6Qfn4RHa5bvO w8j2Ty1L9180az3g+CufHa/cHX3IlptwGw3Gk5L+6j t7DvKiCV+hC66fgF5dqLuo7STtijjkfV/yDJK9OnU5h3odKF9PkiJT+MDmsx040cxtv/8Mdiv0kCF/5Q vfb/lXeXy+cI2xs5H2Z1/+hzZ1gn9pab6pT/8qsQ6//tU7/n2/8exZ1eIibpd/knwG6/mCW8+PvOLb83 z75mVe/lVe2/7fq52rp/X/163jkbzir+rYXmyJX//q O7YXT+KIv3LH+3X0Z+94Bvf+H3n6V/yvnQ1SVqkVzmG4sDCNnceag+zw3995X+L59o9SqHuESrqT/yOs CirNM898/QVtg3DZQc2ld8AevtyeGB7CO/hXDv/J8F806hy1Z98fO/+iwl10t9+C76Wm05/qOW3g09S4 TD5Zh8HzSh9/faJs0eP+swO/5vj0qhAgjO92/dej13 8d+FUerj5U5839qhCF0tEZok931D80eh+On54f+ZGBY+jx/z0db+ZnfvNKP/PDVfz0/hQ/vT/FT+Oxfn p/ymVm//Cacs3RDMi0kxM29nbt49shIm759J3604Eq3cV4698LA590cx4U7YI5Rb3HyeJ2siMWsmbfI/ wdU5my2RqzRRiqD7551O6s3HJebzwF+VR7cx8D067+ FC0gmH4gS06y0VF90XAO/OodQ7+g7/unsxxDZ9mFgg3Ylpi3/sSHo8ch9cyjAcpvQbf2+SvPlrb7rk+y t46VBcBUh6U/faD852pV44mBIonYGq7XX6Uf2V/o23/eWB/cWB/cWB/z9rMn9Ck65o8Eb/Z66E7/6h1/ /u1O/yr12D+4Ed++Z/+X8xy5rf93XWXge3Rj1/7QPX f39iIbjqamu0s0+Cmcx127KrMr42+UEyg/pT19q2vowGQf9Sz3Mj8e8AW2dp3Brw/39+b45921I2um7M ehvsugN+r3pN8N2G3g8Z/oA+ejvqv/v3u1/9es80r54BeuB27/ywl7eG37fe4I22c5y1gBGnpy33sb0B v/u63/U3zyd1yO0/2cH1f9Cmw0V/gx3f1x6oj0RfCS tw/oBXr0Z/hXG/7Vhn+1He/Dv112O46b6/063i/8qw3/avvG8/I94NaY6qR46YjY6775jlO0v98g8i28 fje+343vF/7Vhn+1N+q7Ud+N+q416774c/F+H18pcsqt473O5juxm/bu9d+d/tX10iBtW154SsdVb3Gt yWUElTPHjeT3E+wp0Ym2c1s4g7G48Dw11C08E5l0C0 wH58ArvVjK4+3TeM7G+uA+GK8O/zmXvN76S5/ik3TH20eCT/+jg//RMZzvuK/6hBg99Es3bw/YiG/fp+ S98iq0dJY+Fdg/UUCqOiLSfjIzyL2mp/dFowi9FGI+KhB/YvLbs7yKL4tZtU2Zal/H6Pl+jJ7vR+JXM4 87fiMy/gfJxzb0kzPLSXyfY9j8kMkTiyPM0/2Q7s+B +SeOQr2F+Hjvh87it39pKYyUm8T6z8lZ0sncc+DH69p4dG2j5zOlx8WZaXMp0Qa6I/oJ/YK+481CG9+I wq/luCFiEy5VyIMD79NtPG1DRi5W8W2Dna5tYp6nmUe/Zktcx4WKl4+/NDK+/eIGkeuDea+8YaoXCCu7 nkLA6b3DIetT2BDAmHlblk0+xz+04jUsq5BC1ir/zh eyjnN/+EnM+OAkyqqQfqx7s4+676mrIt7b7Z/d+Uhc/fu05fO7ykVrd/V+nEj/ZngcjqjkcM3P/KtY7W /M8vyVJDm40/vTL9B2lbMf3lfJuw91wK0emC8wEp/PYT0+f0G3mg5DZ4wjxCJFbb8ttFG/E0eYv7Uf7K vKMdy3/pdby39xOCv+BwqHl7I7pPqR/sdTA7x9UfQ9 jM/e6wuB+PbA+mBgfTC8/0fhC+upzN6064B40Zn+Mrzj+cM3zg+oC9Ds4Ut+DsfJC5Pt3Kq8BWvcP0V5 /Iz55wxC6Nnl8AahelFBc45vp/DL6Czbi6bgiQGEdD2oeoshsN17h+h32lQbf56/du+gj472uWCWP++O 6Pl+qAC9EUSuI0T7C15f4GJ8b7leBTH6E3OEhW5Rjv PeoXfoG9+W8I28Up7qOxGyZTtCfhv4zDrzgjJgRF/Lo1cJBK/qO4Z+7aUvkHKpp1fIz/JRNz24t3Q6r1 PiV9n+iV+9Y+gD+l6fZAhhtT5/7/7awmL3r1n2xrTcUzkoXV6nkM0+/fZU/NW8x/P7r53R+PVXgX0dfB +e7bDiXo4XcaLGK/Qb+vYnz+jx6oyA/kDf+MaRXt8/ 0t/vkf5+j7T/zTIgluqbOZH3X7IyTC5H1UBZTsLO8Jfmu5x11VW12ND14LU84KJ68Oc/Li6V3Ff2P2+i dbHcryE1rpU3Y+91wNL69fZ+/QC/OsCvjqK+xmvp9pmkj0atyyYtIWsN4zN+hJ66Ozx2G+S/JiRsW7gr 9IrzJ/QT+mM9oj2wltD1OgDiky7xle6ruc7j/9WZge cPlN/z/ADcabrh10TEWnLM1X2lKVO8r9HtinC39vcM8mueg66oRNwsd4w4/Rnio88gd7NiljzcjUMkH/ 05Tjo0YubCa1vuq/w8rs3ntTC9L+AXa2tr0/0px3o+aKUjDrE8Nzeyz3zbQU7aWA5tpO53bpBR+7WAHt +vob7e/oTKnaVmSiu97/ePK/QKffuTB/sHD/YPHuwf QY3In94X+mL/4MH+kYF3swB/6sC/Ooi/Ooi/Ooi/Ooi/Orv3O5+K2BqtdY8cj0W4bfa2G2v5/tBT/lUe G/CGsm43EqqcPS/6V+8Y+oA+7MkCc8whjNStK7wmBE/sGFdn9IU/5wC72XY+aGCit5Zk/RM9/i2o5Pk7 0oi6w9D32Dg4l8n/Scef3mkEob89GP9R85Xm5fl6ab 0Jd9BpvmUbWa48e+f75/R8/5wF/YK+8+ec0/p2xtl324uKO71aH+/6ontZojk16vKq5+C+Xd8/d6MB2Z 8FW4BsE+Er60/Q7yY/4Zs1/mm25tgC/AkGYdGyaLGvKj/ha8M/wfls/bb/nL9UlyJwSSbZ7dnN1oBuCF Y1NvcQ4FE1a4+g30LsT/qpGD6GWytX31mdXdMiJAEp VQG/n5tNU0fea2auwuqOB5LcCBIRA4oMLFTx/D7xTE/wT0296IBpU7IpMrO87qiIkq22I9w9zIhgEOoL iS9ug0YBhyEA61v0dUd2ZHJyW+whJn8C+9VP5W3fZXe/4RsJ/oVHWD5PDyvLma0t3CpUfoQyGhar5zH+ qA76PvYsTauoz5X/td4Ua1DcpCtUajPuMlyxuYJtnH cHMrJE8YsNc3Ph3wZJMvnGLkyOfg2nZ8GHVYazrB9VzMZWNNIKRxcWKkxPeR9v5V0OG2P9FkSkmqMAUL 7ltLR7/hPQewGQ/HQ6bPHraFOUuJR104zPi5U5i0N8YiFe9IAPH9Pn0loAcstUp8oi1/sBRZw50o/7P8 G/ie9P+EuJkvFKhB9uqEA/OgUpC1NLw7ONEWsVFZGp hJAbU1ovC0qu+G1QNnIyCb+GSCzmzdngTL5gXmZ1Cz3Q3yP5X9oUD10vtTINXBXnalYIS+O6E9MVsE2/ eEpxITdJqunTGlai9H7NytvPBeGU1aeGzmX11p87yz3ODYie6brX+2jUB0X1io3bc9GWNiFnyrVHQ0oQ oIowZB6K2e6Q1YlO1pGTq74/AT0++C1gp+Mva/igQI wQ2mRdqqftOYAZ0eifluHR/QEzvdbFnXE1JMuSN8iHnKt+Fw7/C4f/BQTn/wT8Fw7/E0thtL3F/8JBSt qwIRzcCOLmqs37AeW2/nFxFdm2EP9EX4NaadD5imMm655uJCdZQ9OuTbLGjPRunUZA0dxVzT7e8WmrtY 3wqQ/ucdfCvPvAJcIom01ZxOTRIeQBjpbgkcYJfZT9 KCFPU1Yv/caGh8CuwHTbAUsvs9CpTdUdI7Y5FabjQI9MIFNfjY8dnX+L2BBqOj9psst0YBuvve4n8LBB /cpM/cpU/dispute resolution analyst/KnwtkLWO1Hh4hoTtxK1IhrPstYkpG2cvsuP+ylBxd8awfyaJmUVxZ3y5Pun+0+ghW0w [file] [id number] ID Date Data Source [id number] 01/21/2020 11:10:00 AM EDT [facility] ([facility] [place] Name Value Range Interpretation Code Description Data Daphney rce(s) Supporting Document(s) Potassium 4.0 mmol/L 3.6-5.2 [facility] ([facility] [place]) Sodium [Moles/volume] in Serum or Plasma 142 mmol/L 136-145 [facility] ([facility] [place]) Chloride [Moles/volume] in Serum or Plasma 110 mmol/L 100-108 [facility] ([facility]) Carbon dioxide, total [Moles/volume] in Serum or Plasma 26 mmol/L 22 -31 [facility] ([facility]) Anion gap 3 in Serum or Plasma 6 mmol/L 7-16 [facility] ([facility]) Urea nitrogen/Creatinine [Mass Ratio] in Serum or Plasma 16.2 RATIO 10.0-20.0 [facility] ([facility]) Creatinine [Mass/volume] in Serum or Plasma 1.36 mg/dL 0.80-1.30 [facility] ([facility]) Urea nitrogen [Mass/volume] in Serum or Plasma 22 mg/dL 7-24 [facility] ([facility]) Calcium [Mass/volume] in Serum or Plasma 7.6 mg/dL 8.4-10.2 [facility] ([facility]) Glomerular filtration rate/1.73 sq M.pre dicted [Volume Rate/Area] in Serum or Plasma by Creatinine-based formula (MDRD) 53 ml/min/1.73m2 [facility] ([facility]) Glucose [Mass/volume] in Serum or Plasma 127 mg/dL 70-99 [facility] ([facility]) Glomerular filtration rate/1.73 sq M pre dicted among blacks [Volume Rate/Area] in Serum or Plasma by Creatinine-based formula (MDRD) Laboratory test result [facility] ([facility]) GFR Interpretation Laboratory test result [facility] ([facility]) <content></content>
<content> </con tent>
<content>NORMAL KIDNEY FUNCTION</content>
<content> OR MILD DISEASE - GFR >OR= 60</content>
<content>CHRONIC KIDNEY DISEASE - GFR 15 - 59</content>
<content>RENAL FAILURE - GFR <15</content>
<content> </content>< br/><content>Est. GFR calculation based on the MDRD</content>
<content>study equation, which assumes a steady</content>
<content>state for creatinine. Est. GFR should not</content>
<content>be used for medication dosing.</content>
<content></content> ID Date Data Source [id number] 01/21/2020 11:10:00 AM EDT [facility] ([facility]) Name Value Range Interpretation Code Description Data Daphney rce(s) Supporting Document(s) Leukocytes [#/volume] in Blood by Automated count 10.5 10*3/uL 4.1-11 .0 [facility] ([facility]) Erythrocytes [#/volume] in Blood by Automated count 4.04 10*6/uL 4.60 -6.10 [facility] ([facility]) Hemoglobin [Mass/volume] in Blood 12.9 g/dL 13.5-18.0 [facility] ([facility]) Hematocrit [Volume Fraction] of Blood by Automated count 39.0 % 4 1.0-53.0 [facility] ([facility]) Erythrocyte mean corpuscular volume [Entitic volume] by Auto mated count 96.6 fL 80.0-95.0 [facility] ([facility]) Erythrocyte mean corpuscular hemoglobin concentration [Mass/volume] by Automated count 33.0 g/dL 32.0-36.0 [facility] ([facility]) Erythrocyte distribution width [Ratio] by Automated count 14.3 % 10.5-14.5 [facility] ([facility]) Erythrocyte mean corpuscular hemoglobin [Entitic mass] by Automated count 31.9 pg 27.0-32.0 [facility] ([facility]) Platelets [#/volume] in Blood by Automated count 146 10*3/uL 150-450 [facility] ([facility]) Platelet mean volume [Entitic volume] in Blood by Automated count 8.9 fL 7.1-10.7 [facility] ([facility] [place] ID Date Data Source [id number] 01/21/2020 11:59:34 AM EDT [facility] Name Value Range Interpretation Code Description Data Daphney rce(s) Supporting Document(s) SODIUM 142 mmol/L (136-145) [facility] POTASSIUM 4.0 mmol/L (3.6-5.2) [facility] CHLORIDE 110 mmol/L (100-108) H [facility] CO2 26 mmol/L (22-31) [facility] ANION GAP 6 mmol/L (7-16) L [facility] UREA NITROGEN 22 mg/dL (7-24) [facility] CREATININE 1.36 mg/dL (0.80-1.30) H [facility] BUN/CREAT RATIO 16.2 RATIO (10.0-20.0) [facility] GLUCOSE 127 mg/dL (70-99) H [facility] CALCIUM 7.6 mg/dL (8.4-10.2) L [facility] GFR 53 ml/min/1.73m2 (>59) L [facility] GFR ( AMER) >60 ml/min/1.73m2 (>59) [facility] GFR INTERPRETATION [facility] --NORMAL KIDNEY FUNCTION OR MILD DISEASE - GFR >OR= 60CHRONIC KIDNEY DISEASE - GFR 15 - 59RENAL FAILURE - GFR <15 Est. GFR calculation based on the MDRDstudy equation, which assumes a steadystate for creatinine. Est. GFR should notbe used for medication dosing. ID Date Data Source [id number] 01/21/2020 11:31:38 AM EDT [facility] Name Value Range Interpretation Code Description Data Daphney rce(s) Supporting Document(s) WBC 10.5 10*3/uL (4.1-11.0) [facility] RBC 4.04 10*6/uL (4.60-6.10) L [facility] HGB 12.9 g/dL (13.5-18.0) L [facility] HCT 39.0 % (41.0-53.0) L [facility] MCV 96.6 fL (80.0-95.0) H [facility] MCH 31.9 pg (27.0-32.0) [facility] MCHC 33.0 g/dL (32.0-36.0) [facility] RDW 14.3 % (10.5-14.5) [facility] PLT 146 10*3/uL (150-450) L [facility] MPV 8.9 fL (7.1-10.7) [facility] ID Date Data Source [id number] 01/21/2020 05:03:00 PM EDT [facility] DATE OF EXAM: 01/20/2020RETROGRADE PYELO [...] indicated. D7End of diagnostic report for accession: [id number] Interpreted: Juvenal Elmore MDTranscribed: 01/21/2020 05:02 PMSigned: 01/21/2020 05:03 PM Juvenal Elmore MD -------- [facility] # [id number] [facility] [id number] Name Value Range Interpretation Code Description Data Daphney rce(s) Supporting Document(s) ID Date Data Source [id number] 01/21/2020 06:59:00 AM EDT [place] [address] [address] [facility] [place], [place] [address]TDDPHLD NAME: JOSE VILLATORODATE OF : 1955REPORT: OPERATIONPATIENT NUMBER: [id number] STATUS: OF ADMISSION: 01/20/2020DATE OF DISCHARGE:ROOM:DATE OF PROCEDURE: 01/20/2020PREOPERATIVE DIAGNOSIS: Right ureteral stone.POSTOPERATIVE DIAGNOSIS: Right ureteral stone.PROCEDURES PERFORMED:1. Rigid cystourethroscopy with right stent placement.2. Professional interpretation of radiologic images.SURGEON: FRAN Aguilera HISTORY AND REASON FOR PROCEDURE: This is a very [id number] gentleman with two separate right mid ureteral [...] prepped and drapedin standard sterile fashion. A 22-Macedonian 30-degree rigid cystoscope wasinserted under direct vision [...] and the ureteral catheter wasremoved and a 6-Macedonian 26 cm double-J stent was placed in [...] double-Jstent overlying the right renal pelvis.DRAINS: Right 6-Macedonian 26-cm double-J stent with no string attached.COMPLICATIONS: None.ESTIMATED BLOOD LOSS: Minimal.SPECIMENS: None.DICTATED BY: JOSSELIN Aguileraictated: 01/20/2020 19:36DT: 01/20/2020 19:41Job #: [id number]: [facility] computer generated reports are not confirmed orauthenticated unless they are signed by the providerElectronically Authenticated by:RAJI WYNNE MD On 01/21/2020 06:59 AM EDT Name Value Range Interpretation Code Description Data Daphney rce(s) Supporting Document(s) ID Date Data Source [id number] 01/20/2020 01:20:00 PM EDT [facility] ([facility] [place]) Name Value Range Interpretation Code Description Data Daphney rce(s) Supporting Document(s) Leukocytes [#/volume] in Blood by Automated count 15.5 10*3/uL 4.1-11 .0 [facility] ([facility]) Hemoglobin [Mass/volume] in Blood 14.3 g/dL 13.5-18.0 [facility] ([facility]) Erythrocytes [#/volume] in Blood by Automated count 4.47 10*6/uL 4.60 -6.10 [facility] ([facility]) Erythrocyte mean corpuscular volume [Entitic volume] by Auto mated count 97.1 fL 80.0-95.0 [facility] ([facility]) Hematocrit [Volume Fraction] of Blood by Automated count 43.4 % 4 1.0-53.0 [facility] ([facility]) Erythrocyte mean corpuscular hemoglobin [Entitic mass] by Automated count 32.0 pg 27.0-32.0 [facility] ([facility]) Platelets [#/volume] in Blood by Automated count 172 10*3/uL 150-450 [facility] ([facility]) Erythrocyte distribution width [Ratio] by Automated count 14.5 % 10.5-14.5 [facility] ([facility]) Erythrocyte mean corpuscular hemoglobin concentration [Mass/volume] by Automated count 32.9 g/dL 32.0-36.0 [facility] ([facility]) Platelet mean volume [Entitic volume] in Blood by Automated count 9.3 fL 7.1-10.7 [facility] ([facility]) ID Date Data Source [id number] 01/20/2020 01:20:00 PM EDT [facility] ([facility]) Name Value Range Interpretation Code Description Data Daphney rce(s) Supporting Document(s) Sodium [Moles/volume] in Serum or Plasma 142 mmol/L 136-145 [facility] ([facility]) Carbon dioxide, total [Moles/volume] in Serum or Plasma 26 mmol/L 22 -31 [facility] ([facility]) Potassium 4.7 mmol/L 3.6-5.2 [facility] ([facility]) Chloride [Moles/volume] in Serum or Plasma 108 mmol/L 100-108 [facility] ([facility]) Creatinine [Mass/volume] in Serum or Plasma 1.50 mg/dL 0.80-1.30 [facility] ([facility]) Anion gap 3 in Serum or Plasma 8 mmol/L 7-16 [facility] ([facility]) Urea nitrogen [Mass/volume] in Serum or Plasma 25 mg/dL 7-24 [facility] ([facility]) Urea nitrogen/Creatinine [Mass Ratio] in Serum or Plasma 16.7 RATIO 10.0-20.0 [facility] ([facility]) Glucose [Mass/volume] in Serum or Plasma 147 mg/dL 70-99 [facility] ([facility]) Glomerular filtration rate/1.73 sq M pre dicted among blacks [Volume Rate/Area] in Serum or Plasma by Creatinine-based formula (MDRD) 57 ml/min/1.73m2 [facility] ([facility]) Glomerular filtration rate/1.73 sq M.pre dicted [Volume Rate/Area] in Serum or Plasma by Creatinine-based formula (MDRD) 47 ml/min/1.73m2 [facility] ([facility]) Calcium [Mass/volume] in Serum or Plasma 8.6 mg/dL 8.4-10.2 [facility] ([facility]) GFR Interpretation Laboratory test result [facility] ([facility]) <content></content>
<content> </con tent>
<content>NORMAL KIDNEY FUNCTION</content>
<content> OR MILD DISEASE - GFR >OR= 60</content>
<content>CHRONIC KIDNEY DISEASE - GFR 15 - 59</content>
<content>RENAL FAILURE - GFR <15</content>
<content> </content>< br/><content>Est. GFR calculation based on the MDRD</content>
<content>study equation, which assumes a steady</content>
<content>state for creatinine. Est. GFR should not</content>
<content>be used for medication dosing.</content>
<content></content> ID Date Data Source [id number] 01/20/2020 02:07:19 PM EDT [facility] Name Value Range Interpretation Code Description Data Daphney rce(s) Supporting Document(s) SODIUM 142 mmol/L (136-145) [facility] POTASSIUM 4.7 mmol/L (3.6-5.2) [facility] CHLORIDE 108 mmol/L (100-108) [facility] CO2 26 mmol/L (22-31) [facility] ANION GAP 8 mmol/L (7-16) [facility] UREA NITROGEN 25 mg/dL (7-24) H [facility] CREATININE 1.50 mg/dL (0.80-1.30) H [facility] BUN/CREAT RATIO 16.7 RATIO (10.0-20.0) [facility] GLUCOSE 147 mg/dL (70-99) H [facility] CALCIUM 8.6 mg/dL (8.4-10.2) [facility] GFR 47 ml/min/1.73m2 (>59) L [facility] GFR ( AMER) 57 ml/min/1.73m2 (>59) L [facility] GFR INTERPRETATION [facility] --NORMAL KIDNEY FUNCTION OR MILD DISEASE - GFR >OR= 60CHRONIC KIDNEY DISEASE - GFR 15 - 59RENAL FAILURE - GFR <15 Est. GFR calculation based on the MDRDstudy equation, which assumes a steadystate for creatinine. Est. GFR should notbe used for medication dosing. ID Date Data Source [id number] 01/20/2020 01:38:40 PM EDT [facility] [place] Name Value Range Interpretation Code Description Data Daphney rce(s) Supporting Document(s) WBC 15.5 10*3/uL (4.1-11.0) H [facility] RBC 4.47 10*6/uL (4.60-6.10) L [facility] HGB 14.3 g/dL (13.5-18.0) [facility] HCT 43.4 % (41.0-53.0) [facility] MCV 97.1 fL (80.0-95.0) H [facility] MCH 32.0 pg (27.0-32.0) [facility] MCHC 32.9 g/dL (32.0-36.0) [facility] RDW 14.5 % (10.5-14.5) [facility] n[facility] NAIR Y PLT 172 10*3/uL (150-450) [facility] [place] MPV 9.3 fL (7.1-10.7) [facility] [place] ID Date Data Source [id number] 01/20/2020 01:00:00 PM EDT [facility] ([facility]) Name Value Range Interpretation Code Description Data Daphney rce(s) Supporting Document(s) Color of Urine by Auto Laboratory test result [facility] ([facility] [place]) Clarity in Urine by Refractometry automated Laboratory test result [facility] ([facility]) pH of Urine by Automated test strip 5.5 5.0-7.5 [facility] ([facility]) Specific gravity of Urine by Refractometry automated 1.017 1.003 -1.030 [facility] ([facility]) Leukocyte esterase [Presence] in Urine by Automated te st strip Laboratory test result Abnormal (applies to non-numeric results) [facility] ([facility]) Nitrite [Presence] in Urine by Automated test strip Laboratory t est result Abnormal (applies to non-numeric results) [facility] ([facility]) Protein [Mass/volume] in Urine by Automated test strip Laborator y test result [facility] ([facility]) Glucose [Mass/volume] in Urine by Automated test strip Laborator y test result [facility] ([facility]) Ketones [Mass/volume] in Urine by Automated test strip Laborator y test result [facility] ([facility]) Urobilinogen [Units/volume] in Urine by Test strip 1.0 mg/dL 0-1.0 [facility] ([facility]) Hemoglobin [Presence] in Urine by Automated test strip Laborator y test result Abnormal (applies to non-numeric results) [facility] ([facility]) Bilirubin.total [Presence] in Urine by Automated test strip Laboratory test result [facility] ([facility]) ID Date Data Source [id number] 01/20/2020 01:00:00 PM EDT [facility] ([facility]) Name Value Range Interpretation Code Description Data Daphney rce(s) Supporting Document(s) Leukocytes [#/area] in Urine sediment by Microscopy hi gh power field Laboratory test result 0-5 [facility] ([facility]) Epithelial cells [#/area] in Urine sediment by Microsc opy high power field Laboratory test result [facility] ([facility] [place]) Erythrocytes [#/area] in Urine sediment by Microscopy high power field Laboratory test result 0-2 [facility] ([facility] [place]) Bacteria [#/area] in Urine sediment by Microscopy high power field Laboratory test result [facility] ([facility]) ID Date Data Source [id number] 01/20/2020 01:00:00 PM EDT [facility]) Name Value Range Interpretation Code Description Data Daphney rce(s) Supporting Document(s) Bacteria identified in Urine by Culture Laboratory test result [facility] ([facility]) SPECIMEN DESCRIPTION MIDSTREAM UR INE,CLEAN CATCH CULTURE RESULTS >100,000 CFU/ML STAPHYLOCOCCUS, COAGULASE NEGATIVE KERON NUMBERS CAN NOT BE DIRECTLY COMPARED ACROSS DIFFERENT ANTIBIOTICS. KERON VALUES ARE OCCASIONALLY USEFUL. SUSCEPTIBLE OR RESISTANT INTERPRETATIONS ALONE ARE SUFFICIENT FOR ANTIBIOTIC SELECTION IN THE GREAT MAJORITY OF INFECTIONS. REPORT STATUS FINAL 01/22/2020 ORGANISM STAPHYLOCOCCUS, COAGULASE NEGATIVE METHOD KERNO NITROFURANTOIN 64 INTERMEDIATE LEVOFLOXACIN >=8 RESISTANT LINEZOLID [...] CIPROFLOXACIN >=8 RESISTANT ID Date Data Source [id number] 01/22/2020 08:14:42 AM EDT [facility] SPECIMEN DESCRIPTION MIDSTREAM UR INE,CLEAN CATCHCULTURE [...] rce(s) Supporting Document(s) ID Date Data Source [id number] 01/20/2020 02:04:10 PM EDT [facility] Name Value Range Interpretation Code Description Data Daphney rce(s) Supporting Document(s) URINE WBC (0-5) [facility] URINE RBC (0-2) [facility] EPITHELIAL CELLS 2+ [HPF] [facility] BACTERIA 1+ [HPF] [facility] ID Date Data Source [id number] 01/20/2020 01:27:50 PM EDT [facility] Name Value Range Interpretation Code Description Data Daphney rce(s) Supporting Document(s) COLOR [facility] APPEARANCE [facility] SPEC GRAV URINE 1.017 (1.003-1.030) [facility] PH URINE 5.5 (5.0-7.5) [facility] LEUK ESTERASE 2+ (NEG) A [facility] NITRITE URINE (NEG) A [facility] PROTEIN URINE (NEG) [facility] GLUCOSE URINE (NEG) [facility] KETONE URINE (NEG) [facility] [place] UROBILINOGEN 1.0 mg/dL (0-1.0) [facility] [place] BILIRUBIN URINE (NEG) [facility] [place] BLOOD/HGB URINE 3+ (NEG) A [facility] [place] ID Date Data Source [id number] 01/20/2020 12:52:00 PM EDT [facility] ([facility] [place]) Name Value Range Interpretation Code Description Data Daphney rce(s) Supporting Document(s) Comment Laboratory test result ME JAVED ([facility] [place]) THE [place] FDA HAS MADE THIS TEST AVAILABL E UNDER AN EMERGENCY USE AUTHORIZATION (EUA) FOR THE DETECTION AND/OR DIAGNOSIS OF THE VIRUS THAT CAUSES COVID-19. EMAILED TO IC AT [phone] ON [id number] BY [id number]. Covid19 Result Laboratory test result [facility] ([facility] [place]) THIS ASSAY AMPLIFIES AND DETECTS THE TARGET RNA USING REAL-TIME PCR. NEGATIVE 2019_NCOV RT-PCR RESULTS DO NOT PRECLUDE 2019_NCOV INFECTION AND SHOULD NOT BE USED THE SOLE BASIS FOR PATIENT MANAGEMENT DECISIONS. Specimen source [Identifier] of Unspecified specimen Laboratory mikki t result [facility] ([facility] [place]) Employed In [employer] Laboratory test result [facility] ([facility] [place]) First Test Laboratory test result ME DENT ([facility] [place]) Symptomatic Laboratory test result M EDENT ([facility] [place]) Icu Laboratory test result ME DENT ([facility] [place]) Patient was hospitalized because of this condition Laboratory test re sult [facility] ([facility] [place]) Illness or injury onset date and time Laboratory test result [facility] ([facility] [place]) Laboratory test result [facility] DENT ([facility] [place]) Congregate Care Set Laboratory test result [facility] ([facility]) ID Date Data Source [id number] 01/20/2020 12:52:00 PM EDT [facility] Name Value Range Interpretation Code Description Data Daphney rce(s) Supporting Document(s) SARS coronavirus 2 RNA [Presence] in Res piratory specimen by ASCENCION with probe detection [facility] This lab was reported by [facility]. ID Date Data Source [id number] 01/20/2020 03:17:15 PM EDT [facility] Name Value Range Interpretation Code Description Data Daphney rce(s) Supporting Document(s) SPECIMEN DESCRIPTION Lab [facility] NAIRYoni COVID19 RESULT (NDET) [facility] THIS ASSAY AMPLIFIES AND DETECTSTHE TARG ET RNA USING REAL-TIME PCR.NEGATIVE 2019_NCOV RT-PCR RESULTS DONOT PRECLUDE 2019_NCOV INFECTION ANDSHOULD NOT BE USED THE SOLE BASISFOR PATIENT MANAGEMENT DECISIONS. COMMENT [facility] UNDER AN EMERGENCY USE AUTHORIZATION(EUA ) FOR THE DETECTION AND/OR DIAGNOSISOF THE VIRUS THAT CAUSES COVID-19.EMAILED TO IC AT [phone] [place] [id number] [place] [id number]. FIRST TEST Lab [facility] EMPLOYED IN [facility] Lab [facility]ia n[facility] SYMPTOMATIC Lab [facility] DATE OF SYMPT ONSET [facility] [place] [facility] [place] [facility] ICU [facility] [place] [facility] CONGREGATE CARE SET [facility] [place] [facility] [place] [facility] ID Date Data Source [id number] 01/20/2020 11:14:00 AM EDT [facility] ([facility] [place] Name Value Range Interpretation Code Description Data Daphney rce(s) Supporting Document(s) Bacteria identified in Urine by Culture Laboratory test result [facility] ([facility] [place]) SPECIMEN DESCRIPTION MIDSTREAM UR INE,CLEAN CATCH CULTURE [...] CIPROFLOXACIN >=8 RESISTANT ID Date Data Source [id number] 01/22/2020 08:23:27 AM EDT Laboratory [facility] li[facility] [...] rce(s) Supporting Document(s) ID Date Data Source [id number] 01/20/2020 10:51:00 AM EDT [facility] ([facility]) Name Value Range Interpretation Code Description Data Daphney rce(s) Supporting Document(s) Glucose [Presence] in Urine Laboratory test result [facility] ([facility] [place]) Protein [Presence] in Urine by Test strip Laboratory test result [facility] ([facility]) Blood [Presence] in Urine by Visual Laboratory test result [facility] ([facility] [place]) Ua Leuko Laboratory test result ME DENT ([facility]) Ua Nitrite Laboratory test result ME DENT ([facility]) Color of Urine Laboratory test result [facility] ([facility]) Ketones [Presence] in Urine by Test strip Laboratory test result [facility] ([facility]) Clarity of Urine Laboratory test result [facility] ([facility]) pH of Urine by Test strip 5.5 5.0-7.5 [facility] ([facility]) Ua Specific [place] 1.020 1.003-1.030 MEDE NT ([facility]) Urobilinogen [Mass/volume] in Urine by Test strip 0.2 E.U./dL 0.0-1.0 [facility] ([facility]) Bilirubin.total [Presence] in Urine by Test strip Laboratory test res ult [facility] ([facility]) ID Date Data Source [id number] 10/24/2019 07:45:00 AM EDT [facility] [place] Name Value Range Interpretation Code Description Data Daphney rce(s) Supporting Document(s) Colonoscopy [facility] OGMQNv9yPmDHMjPnFBJtQnhQKEayGTbfTQYqK5W5UYipLu8FXJpxzkGpDPAcUv8+VCMyZL5ktv8aPTTs gMy 2bAJIxFfblS1XzJMIdj94VRASmEOkGNnXzSnUeFwCxIJjbJGJlBZD2XaJdUgeaIP4bWHC7QXJrDJymYB NtROarCRU4UiinUN7rPSpwOWisLb1NXN0cf4FeAEOvWJUmBucOOLyvHHvfLKMiIHHaZBXzK343xeTxAb 6BwLFkLYr1VGSnOpI6VBPnEaV7PQSzWd3qOrQgy8Em U4OrISf8V4qNWqagE4TkUCpbQD5cTCF5BRNpSs0SmPfwQRhsYKPIO0knZzPaNOPdOUKBOz3+Pj4+DWVu XS4mov63MYOkh3MeVVs8P9H2kIFtQ2DxQ8FkCHXbfEJUc4xwPzXmRAN8GITjIvgbZK0RBYPlxFInIIFp RBqaPO0blyYedXR2WS3KuRpdFRHgNBDIWr0+Pi9QYX MpalRyGyFrHYQbG44apHYjfERhJmliBNWLQH0+FNQlDS7tcz31ZQRoj9QyFYv5M0dkjhe6fLGbCoG1GZ XyVhNhQWZpGD2pRQ4KxWM0dRTiAK5GqBBtKM6BuUNlVY6DM4WyZMX9K8NhhVFlyySbP1UeVFJjIITpz1 NlJO4DS8QITAIfJSWeD9JslY2tN5UtD7CbR2Vjffge IBEGOl3ShOK1pOBcBBXeB0ruiExnfTQiWFiqN3JyiMZBYIAYv61gm07didEmFH4+j2WmDPJpCFx16wd0 ZVAcX/ldTAAWNdi1FFpwOBLxRlQPgf4uS9oiEqQ4AIb4BmdigSS4P6kEbILS2//llnr7qkf3ps/eD+/z 9JNMnk3+u3zt5pMa0jOq5VNRTIceBWQUcQVCSKIW85 peqSl1FGkpvQabtAvM+GWdBFMBfZBbd6vL7H3No9GVymVyZkU06+Us9xcq2bhs2bIk9+Lm/ChnMV9kt7 ZHQyfGwCDmfEv+lvP/VR19WJlkwYdmlePWYqCOEiISB+JfW4QFERBjAxsVSA7bKSqOGoJcu1Dtg5U0VY CPDXiFAAS+QgQiISEi/u31+apKCKPQlq3W3ITRE3vA [file] boat painter+1KRf4tkqbWPF2m+inEWeV/jyv2rwssmk0p20VK+DyqdGgVs2aJfceoFxqZiIxKqo1rXl6rLFW7UH [file] SfYxh+htTlDcBBIjaJozLGjzsCdIABj25KbxlOmuIDwqVKx/Vh8Fb0l9x6he2HgyR8qAWRQzMjm/b/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 [file] cgfYj/QGNTG9K2XfTLKSvh5y9p6XLZuJxq2QH705qISG26eVI9u/6+0OWNSj2k3HW/Riley++vzmQnUGUM P/YShfyC/XvtphmfJJ2w+dL9IMszInWSSrstPy0Vch 7RymV9xm89GkeVXenutq3ew5U80sBOE/BwJGsw7euBVTIvyznKwHISGmRcHcocn8GduBG0VLD38q/7Ua r2GpIQ+RVaekVythaX8e2hgZuXzUL04hnC31GHZm623sPUFQNvxGQjqOAEQfNMsAS7z7/tCQBj06sVc6 Mp5dobnFIrhwRivZs9Tpuf+7F1fKykUlf8LFKd13DY XUHjAWHCpD3x7oo18GRl0Y1n9fwS45+mOd4XIZ1EF1EBhhoeVCIr7EuXeBTn/bofN9c+RY8pHxEnHVmG 3svZiNc0wGS4N6Ylzxv4cPcm7ky8WgFdlGOiD+KfAnm7PaB/XffN//QTYFV2SJx/S97WinejvIgjcr5U adHP6vXyzjSP1XEqGUpPA3TNqMRg7Juu4NaWp9qXjv rGEp2uScB3Hsh8AbaBiPJDr9pX/x2RI3VHO2ZvpbeBuIH6CVqQn/EsZif1tsNue10mCF/nhzo5DskrVG Y3TP9R440U0zLy+ap8Mf2TO4ejaa0+lQF6EZ26mUtfcxfJzMTqroh10xpMw+pPuuOY4t1lb09bd0JnHn gai1YxnUoUBasuJFWdhjYxaTOkVQ3MH7A3OVI0W3rI yUOYJA2xSon0npN81t+barDOSke6DTpXwzmJQAlc4sFOuqi+rDGWELsxXZYtEhVlW3/CH6w3xr28UKdg Ajvfc0QYQXRG/HPKUGW5+rT/8agHmSucOSHadkOHKX/u0GaqyIM1901uny9A9kh+ZPLH96sXG2iea3HH WHezpGERfkZnCBmG4qY4WZDVupv7+bhC+LjXkqhqHd wS5riWX4/iMPyCwxpoBMpZFtQUodHGlcC+Sanjuana/mDnKloiFVDc80KPlio4tkp1td6B0euOzTJ2cVJTYCD FCfwFxmTfUeR913I8w5kPAuR3KRu3DqxaYPiGiaDkkdYWpD6Hs7caOFctz1W8xCgHTE/cTGCbA76wd6j ljXpGueXnoj6tRrWfjgHlHQuoZsfSCAnbn+WQWejjv COMMUNICATIONS CLERK/v7pWwB7CgiIhR6AjupGjs9IXE6gK+m5mJ34NF0KKTud94pT7xz09qPwj1owHpW8Cm+OdndLOy7g3q [file] Sales Audit Clerk/Sb4xpIXlqy1AfHvb4k78eBtGMHWjp9qPXndstw1FEA81F26AUdLhQLpqPkcWjhDouoTvaxFKxsDpj [file] nDpeglpyBu86fi8u8cpdxZL9r/CLvAyrih3Zrici/T u9r02PfZqcVNaO4ehNk/kFNV+ioVMd5diPBEZ+Rk/U0jtIpoZ/L7NKxc/qcx80T5RQbxHjNFQuAT/KyQ f/Grw+aNsOD4EEUuFjtdB7elg7CwlErMxCVp+tDKp9asHcNalrbDGPRojDDIAi8ho4cQ0dukkp2YVR3r +YLs08OU0Z1CY0oKut6ecZY113hx/PCDABPDHG1b4u DF//JeBOf6WfigPL6bPhVxIhjA3yDL4uCR6guf0l6z3fryFPDj8fVCW63o2azgWYUiKLIaoZcivCUzvj TBvX3IE1YGYSJLU2O1YeopYpnmIwINM4Qnyne9J1SygIzNrbzZIeli1sF4pvgjgq8JmYmv0hp8O/dpbU 5j40pNPw0bUhhIfByjh+CzxTn5fA/7DkkZ0kMrMDHE RD1qoknjtknXcnf5c/MnHBqbbnij2xvhsqwzA2Z8MV59UW22+0ZKvmNgi0+d0hl7mIWK/6g50/YD1pw7 sbOwS9oJBIQUaKam83sWb9frZ7lTmmJdxUySXDXP4IlHPSHL+E5zZ5gAyTok092JT3dysoW1q5Mcus+i PDzCtgh6lhA81Z/lmQXr3mm3sKGAALZvrhHwelRPvL tfGfjxvlKwZQ5W1PP2iDMfMfjg0SJCP4mhGw4UgnBdA+RkXmji2qL49vhY64G8Lkx8EXxkyc90Kl8hDp 7bxvzOPPTo9RIVD/i4rM/86OCQXl/5vH+e1WmMkqqA7UJV7zw6KaIHYyOSHlDJ5xfx0wNiTxHG1fvv82 FY4HYH0huOtvMdE+CxN4mjXxjY7VcQi9DSLwVZWiYH f8HoNjLWBiQ27AM0tzAbYdDZ8GGO8EAY4zk8LeJFKoJCWcTH6ddn6nCpEjYX9cxs53AU8UbSd0OIAfW1 WmWCXaPVUvd9YhN9dvltm0kNF6JA3POXSbGRHNDmbRHjG9NAXDZtP7EKHTNRX0YzIxCOJlDhZJPBXCLz A4GOXVGOOiEGaWYRF0BDIMCoAlCPBeVjW2DDSjSFTK M0M+BU6Jb210DOLzXLTYD9ogKo6tWtDhWDJhQ0f2BSPoDN2WjUTiYU1SDbUdP8txEsEuCSJrRP9+c3Ry LKQbNVg32aOcSLByQNUNagdz8sHKalWHyPCi7gDBRXuYZhXgb0u9aqHWy/EbiHQqBpNHgCRnUTOYvMIA MAGVF9cBMmRbBCD5wwHaxH2JUN9sg7HiEQ5Pb2GcqqZ9qlOxEPh7WFxpMgNUSrHmTB9Z ID Date Data Source [id number] 10/03/2019 01:15:00 PM EDT [facility] [place] Name Value Range Interpretation Code Description Data Daphney rce(s) Supporting Document(s) Follow Up [facility] [place] OHIOXj9lQlBUMdLiCWAhQidMXRrdSAbpHAFpM1Z7CUguAl5KZFxwfxUxYWOtYr1+GFBoLL5kvi8cDWCx gMy [file] FqIaCKyf8E1hRHhg4/lever operator+jymVGbZ1V7SWRhfMRUwZ7 [file] OKz9L5rXhxGwTq/FDw7oJ6k9/gjoVUYlwD0OwqTxIw+YngTral7f0CBRkeyp3g8RqIUTnC+jazz singer/DVUfl/ [file] FomVpd66X1ozoNw7kItQkpkeinOrhUa0fvBg3FZR0AwNBzFI99asOGmW2FMxd3urWMnrB3pcjuJx/java developer analyst [file] Alexandre+cRr+gwbCHMv8M6wAgVJ1J2sNniV1wFTBH0nmBe/rf2Y+Y1HEagJVE20pO/gXb4qhebTcTEFrzXN/ AXGmRCub0LdzTziOKU4/bTsgn3DleC9g78PphDmh/[employer] [file] maria c+xxrLkD7jAzG1h7OnsFFcyE/2P0y1Dl9TkbQ95YZ9eMqrnM8p8k/5Npk43+hiJMbIMV1tjgBl1MGI [file] V4hpLcwUPLWY+VkzFnIARkO89s28T2DU/drW0kSMw5lWttrD3Sma/minister helper+bTlZSXub79LoGlcR/thrXnv 2770h+rUvLqqx1/P/DOxLoprG22RrQo5K8400bgI1a ASK425ppgIVyxMFNqhQAyjWMvQd6YYImTQjiyjSvKr0/vO8XXijNkzd9gy3ILD8QRc9FZEyp6iwISl+s +LihbR1IcDX7d0nLnFw/72ONp7Wzn7o/VWIYDL06nI58dIc9UDx7fFpcvMMSWSwTxqrtF/XmSKi0rjIj JJfbDWSFx9YwaWxLdAUEmNNz0wWJ7h+TsgqMtL+u2Z a5ErHyX63OrCJP2VojLSlPodPyg1iQ911WYv4cwzOAqh45pccIa8ih7DS/+76lI6ZaTKFyFIddtcHtit GMKMnfy6GTN6KBi/ul7Y8RSOX4nBvQylMiuuuykqXsBsjF52a5r/r7HAnaEtkH94fQX11xJi6gPPxlq0 6nPN9oKZbSjMyWpGCtZYDaR5e5yH8oxOvc7He9aa7W 5q8KBLWEXUNUWp8E98UNPMr+kLVEGZI+yvednBCbyhFyqHNH+sRszfdHu8snN8phSfuug9nKEZgx/zTX 0JFZOjYuzAFSntjZXXv24rnmBlv3lKrJJ4EP0rrdi5RRu3tcXifDhycwckBNsS9bE4mPdnBVNPDEqBhB qeMyP0u3mgq0yrFEbXIU+26Tov90s04YGUAaZIpfGz mVHIUvjRqXGArtjSbvOyDmxxz5JWdkAzGg3O0hOe67+oXySH3xBNIfw01FGN3PBu8Z5FIwC4oXGOhZ8G wTfPvETt7m08BT+Er2IT+OQlwJqxj9I/gnuE8Uqsjtod0vofrBsxO4jQ8Z6/zLzrJw/Bay0p6RuGNUEw fo7k6r0v/rfCRQWEy85aP4Lrg/zvfWEn8FZclozMU7 shaquille+flaMK+RJvHAgxfL7qIWtSHO+PgQMCR0lpDCGcdeD06H2s2bFzKzayqpgW9FA+ukG8Tfp0y4JSVIy [file] VrKibyCmlK/DQyy6OdOAr9qBl4CzXhDYCg8gQl9foBywKMcbPZb6p5YiU9WURfAIwfjejkLSPtVaJ+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 [file] AbLef3kM6IMpLp6SA4T+COMMERCIAL ENERGY RATER+cdfmAFtrhnCWmrgcYRgxeXwTD1lushvElFPESJSdkQy/lpqposa5stbPL [file] YtWkV8iH2PwPnJ5BW0mRdVPEO7LINpjXFFx9NY+ship ceiler [file] 5PWhue4MajTk+P/gVOyJaAqA4TOGiin741c4ED+JlebQe0AfLaHX+mary beth+wYjfFmbx1mU7DNfWFw/6+IP [file] GVSKj9Q6CjQUo8hC0mJjDyopN4u/8ve/broaching machine operator/jfEXjpCGDoWg+OpW2u+jfwW8FLsTQpPII7cvJkeDKmfT [file] ozNmcSJZRX2zTKgCeyZKJHQPAQVQPXOq6AJ5myupbe wILtAr0OPa/7TqmtMcT8qmsu19MnezFFyqDGUtXnuYT6UsknLA8lZFuLSNkO6vWPFwBgc8AmKqV3/Y6C ze2VqLvr0hG1GIo+5/nVoyr1+0023yfTchwJ1kZMX6TTUD12ZkzlhvePbH2Y355Pkau8TmsVuBnCTVu2 AFoa+2AVQuxpd1yNJFbpEq4wAR9f7yiTaxpqChhhYg ifU0eVlXqdWthhSOARKYvo1mcwlm1xiRpxaIDCErxy76wpWnaEMMHOzB8pzqvdWieSHGtNfpcldmn+vX pp1VEw/bd51UeMrJS5T6dBPg9GLVpDRixrV5SRkOZ0455MojauFXeC51a22Tdnpymw+uz2PigbxJmoA8 MwzpYy7N+VMLmbcj+jazz singer+EDIdYINFZPtj7xxj5E1evz [file] 4fcrW1JON3hD7+Tape Control Skin Or Spar Mill Operator+Aavu/Venus/dn7eVyav5R8PKtIFfA8ndOLf5ym635PY8/XwkCnANICRxmK+UwgDtA [file] Luis Eduardo/1LqPs6HjrWLyYpF8AVkBYKQGVzfoCBQoFlo+JW4IgbD/RRrggtDfypF4u0sHvpqOLP/VV9ARsFLD VYAMIECAorDpNEOmjpADfkqC8KP5k2iqAbo74cnjCO dnsTdHy30rCTG9W1qPPz9PMFomfsQ8ySgDQ8LqgjmizwmR/er5j4+WnsgcSTzXz+u+2ptQuadn3+CMil tZfVVzFRSQWMFBKYkjm1B0gYyIZT0eSvVnXDNWBozcenDtwRG+Ne7+wEYX6IWB1rA7hCK5wn9N+tMX+1 PUviO4Q+GIgPDvsLEsQl3VGQtvp9x/oe4B8Uk1024W c/Dj5/mOTnls+DFtSDil8mXE5oQahvvB1acB6KjkyS0J748jHsZ3bszgr5GzNS7xAXGfgrELcB1+R4bW SPPiH8gdSDa5L0Xv5qqXzHw1IdghAJ10JnbS5I5osIRswZvvsJHXgzy2ky6m7ouf08Aw0jd3t1puE3li PakH+SLZBH4rtw0CZ9nATDGFYG6TVPQT1AurciOvAY [file] TSbgczClpBVxRK2BJyEtTZ5pla6OIuI1XXZ2lHMzBd8ATWOvXGE1Fo6YHNZGV0L= ID Date Data Source [id number] 09/02/2019 10:01:00 AM EDT [facility] ([facility] iated Supervisor Extruding Department [facility]) Name Value Range Interpretation Code Description Data Daphney rce(s) Supporting Document(s) Urate [Mass/volume] in Serum or Plasma 4.9 mg/dL 3.7-8.6 MEDENT ([facility]) A courtesy copy of this report has been sent to [phone] Calcidiol [Mass/volume] in Serum or Plasma 31.7 ng/mL 30.0-100.0 MEDENT ([facility]) A courtesy copy of this report has been sent to [phone] ID Date Data Source [id number] 09/02/2019 10:01:00 AM EDT MEDENT ([facility] i[facility]) Name Value Range Interpretation Code Description Data Daphney rce(s) Supporting Document(s) Urea nitrogen [Mass/volume] in Serum or Plasma 21 mg/dL 8-27 MEDENT ([facility]) A courtesy copy of this report has been sent to [phone] Glucose [Mass/volume] in Serum or Plasma 136 mg/dL 65-99 MEDENT ([facility]) A courtesy copy of this report has been sent to [phone] eGFR If NonAfricn Am 62 mL/min/1.73 MEDENT ([facility]) A courtesy copy of this report has been sent to [phone] Creatinine [Mass/volume] in Serum or Plasma 1.24 mg/dL 0.76-1.27 MEDENT ([facility]) A courtesy copy of this report has been sent to [phone] Sodium 144 mmol/L 134-144 MEDENT ([facility]) A courtesy copy of this report has been sent to [phone] BUN/Creatinine Ratio 17 10-24 MEDE NT ([facility]) A courtesy copy of this report has been sent to [phone] eGFR If Africn Am 72 mL/min/1.73 MED ENT ([facility]) A courtesy copy of this report has been sent to [phone] Carbon Dioxide, Total 24 mmol/L 20-29 MED ENT ([facility]) A courtesy copy of this report has been sent to [phone] Chloride 105 mmol/L 96-106 MEDENT ([facility]) A courtesy copy of this report has been sent to [phone] Potassium 4.6 mmol/L 3.5-5.2 [facility] A courtesy copy of this report has been sent to [phone] Calcium [Mass/volume] in Serum or Plasma 9.4 mg/dL 8.6-10.2 MEDENT ([facility]) A courtesy copy of this report has been sent to [phone] ID Date Data Source [id number] 09/03/2019 04:06:00 AM EDT [facility] Name Value [...] mg/dL 8.6-10.2 [facility] ID Date Data Source [id number] 09/03/2019 05:06:00 AM EDT [facility] Name Value Range Interpretation Code Description Data Daphney rce(s) Supporting Document(s) Vitamin D, 25-Hydroxy 31.7 ng/mL 30.0-100.0 [facility] Vitamin D deficiency has been defined by the [place] of[employer] and an Endocrine Society practice guideline as alevel of serum 25-OH vitamin D less than 20 ng/mL (1,2).The Endocrine Society went on to further define vitamin Dinsufficiency as a level between 21 and 29 ng/mL (2).1. IOM ([place] of Medicine). 2010. Dietary reference intakes for calcium and D. [place]: The National Academies Press.2. Deonna MF, Dustin TERRY, Raulito LEE, et al. Evaluation, treatment, and prevention of vitamin D deficiency: an Endocrine Society clinical practice guideline. JCEM. 2010; 96(7):1911-30. ID Date Data Source [id number] 09/03/2019 08:08:00 AM EDT [facility] Name Value Range Interpretation Code Description Data Daphney rce(s) Supporting Document(s) Uric Acid 4.9 mg/dL 3.7-8.6 [facility] Therapeutic ta rget for gout patients: <6.0 ID Date Data Source [id number] 08/22/2019 12:00:00 PM EDT MEDENT ([facility]) Name Value Range Interpretation Code Description Data Daphney rce(s) Supporting Document(s) Laboratory test finding (navigational concept) Laboratory test result [facility] ([facility] [place]) ID Date Data Source [id number] 08/22/2019 12:00:00 PM EDT MEDENT ([facility]) Name Value Range Interpretation Code Description Data Daphney rce(s) Supporting Document(s) 24 hr Creatinine 1577 mg/d MEDENT ( [facility]) Source of Specimen: Urine 24 hr Calcium per 24 hr Creatinine 50 mg/g 34-196 MEDENT ([facility]) Source of Specimen: Urine 24 hr Calcium per Kilogram Body Weight 0.6 mg/d/kg MEDENT ([facility]) Source of Specimen: Urine 24 hr Creatinine per Kilogram Body Weight 12.3 mg/d/kg 11.9-24.4 MEDENT ([facility]) Source of Specimen: Urine ID Date Data Source [id number] 08/22/2019 12:00:00 PM EDT MEDENT ([facility]) Name Value Range Interpretation Code Description Data Daphney rce(s) Supporting Document(s) 24 hr Chloride 158 mmol/d 70-250 MEDENT ([facility] [place]) Source of Specimen: Urine 24 hr Sulfate 41 mEq/d 20-80 MEDENT ([facility]) Source of Specimen: Urine 24 hr Sodium 179 mmol/d 50-150 MEDENT (Asso ciated [facility]) Source of Specimen: Urine 24 hr Potassium 54 mmol/d 20-100 MEDENT (A [facility]) Source of Specimen: Urine 24 hr Ammonium 47 mmol/d 15-60 MEDENT (As sociated [facility]) Source of Specimen: Urine 24 hr Urea Nitrogen 13.42 g/d 6.00-14.00 MEDEN T ([facility]) Source of Specimen: Urine 24 hr Magnesium 121 mg/d 30-120 MEDENT (A [facility]) Source of Specimen: Urine 24 hr Phosphorus 1.359 g/d 0.60-1.20 MEDENT ( [facility]) Source of Specimen: Urine This value shows an increased risk factor of 1, where 0 is normal and 7 is extremely high. Protein Catabolic Rate 0.8 g/kg/d 0.8-1.4 MD DENT ([facility]) Source of Specimen: Urine ID Date Data Source [id number] 08/22/2019 12:00:00 PM EDT [facility] Name Value Range Interpretation Code Description [facility] Supporting Document(s) Interpretations Collection A Laboratory test result MEDENT ([facility]) Source of Specimen: Urine : Urine [...] as noted above. ID Date Data Source [id number] 08/22/2019 12:00:00 PM EDT MEDENT ([facility] [place]) Name Value Range Interpretation Code Description Data Daphney rce(s) Supporting Document(s) pH 5.441 5.800-6.200 MEDENT ([facility] [place]) Source of Specimen: Urine This value shows an increased risk factor of 4, where 0 is normal and 7 is extremely high. 24 hr Uric Acid 0.317 g/d MEDENT ([facility] [place]) Source of Specimen: Urine 24 hr Calcium 80 mg/d MEDENT ([facility]) Source of Specimen: Urine 24 hr Citrate 109 mg/d MEDENT ([facility]) Source of Specimen: Urine This value shows an increased risk factor of 5, where 0 is normal and 7 is extremely high. Urine Volume 1.98 L/d 0.50-4.00 MEDENT (Asso ciated [facility]) Source of Specimen: Urine This value shows an increased risk factor of 1, where 0 is normal and 7 is extremely high. 24 hr Oxalate 105 mg/d 20-40 MEDENT (Ass ociated [facility]) Source of Specimen: Urine This value shows an increased risk factor of 5, where 0 is normal and 7 is extremely high. Supersaturation CaP 0.15 0.50-2.00 MEDEN T ([facility]) Source of Specimen: Urine Supersaturation Uric Acid 0.79 MEDENT ([facility]) Source of Specimen: Urine Supersaturation CaOx 7.14 6.00-10.00 MEDE NT ([facility]) Source of Specimen: Urine This value shows an increased risk factor of 3, where 0 is normal and 7 is extremely high. ID Date Data Source [id number] 08/17/2019 10:53:00 AM EDT [facility] ([facility]) Name Value Range Interpretation Code Description Data Daphney rce(s) Supporting Document(s) Red Blood Count 4.43 4.00-5.40 [facility] ([facility]) Platelets 155 172-450 MED[facility] ([facility]) White Blood Count 8.2 5.0-10.0 [facility] ([facility]) Hematocrit 41.6 [facility] ([facility]) Hemoglobin 14.0 [facility] ([facility]) ID Date Data Source [id number] 08/17/2019 10:53:00 AM EDT [facility] ([facility]) Name Value Range Interpretation Code Description Data Daphney rce(s) Supporting Document(s) Calcium [Mass/volume] in Serum or Plasma 7.9 [facility] ([facility]) Potassium [Moles/volume] in Serum or Plasma 3.9 [facility] ([facility]) Chloride [Moles/volume] in Serum or Plasma 111 [facility] ([facility]) Sodium 142 MED[facility] ([facility]) Carbon dioxide, total [Moles/volume] in Serum or Plasma 24 [facility] ([facility]) Glucose 125 83-110 MED[facility] ([facility]) Blood Urea Nitrogen 15 7-18 MEDENT (Ca [facility]) Creatinine 1.08 0.6-1.0 [facility] ([facility]) Glomerular filtration rate/1.73 sq M.pre dicted [Volume Rate/Area] in Serum or Plasma by Creatinine-based formula (MDRD) Laboratory test result MEDENT ([facility]) ID Date Data Source [id number] 08/16/2019 10:50:00 AM EDT [facility] Name Value Range Interpretation Code Description Data Daphney rce(s) Supporting Document(s) Triglycerides 154 MEDENT ([facility]) HDL 28 [facility] ([facility]) Cholesterol in LDL [Mass/volume] in Serum or Plasma by calculation 32 [facility] ([facility]) Cholesterol 91 [facility] ([facility]) Chol/HDL Ratio 3.250 [facility] ([facility]) ID Date Data Source [id number] 08/16/2019 10:50:00 AM EDT [facility] ([facility]) Name Value Range Interpretation Code Description Data Daphney rce(s) Supporting Document(s) Albumin [Mass/volume] in Serum or Plasma 3.1 [facility] ([facility]) Carbon dioxide, total [Moles/volume] in Serum or Plasma 25 [facility] ([facility]) Calcium [Mass/volume] in Serum or Plasma 7.8 [facility] ([facility]) Alanine aminotransferase [Enzymatic activity/volume] in Serum or Pl asma 28 MED[facility] ([facility]) Chloride [Moles/volume] in Serum or Plasma 112 [facility] ([facility]) Potassium [Moles/volume] in Serum or Plasma 3.8 [facility] ([facility]) Alkaline phosphatase [Enzymatic activity/volume] in Serum or Plasma 7 6 [facility] ([facility]) Sodium 144 MEDENT (Cardiology A [facility]ates of [facility]) Protein [Mass/volume] in Serum or Plasma 6.6 [facility] ([facility]) Aspartate aminotransferase [Enzymatic activity/volume] in Serum or Plasma 15 [facility] ([facility]) Urea nitrogen [Mass/volume] in Serum or Plasma 18 [facility] ([facility]) Glucose 139 83-110 [facility] Creatinine For GFR 1.07 [facility] ([facility]) ID Date Data Source [id number] 08/15/2019 10:47:00 AM EDT [facility] ([facility]) Name Value Range Interpretation Code Description Data Daphney rce(s) Supporting Document(s) White Blood Count 9.5 5.0-10.0 [facility] ([facility]) Platelets 174 172-450 [facility] Hematocrit 43.1 [facility] ([facility]) Red Blood Count 4.55 4.00-5.40 [facility] ([facility]) Hemoglobin 14.2 [facility] ([facility]) ID Date Data Source [id number] 08/15/2019 10:47:00 AM EDT [facility] ([facility]) Name Value Range Interpretation Code Description Data Daphney rce(s) Supporting Document(s) Magnesium Level 1.9 1.8-2.4 [facility] ([facility]) Troponin Laboratory test result MEDENT ([facility]) ID Date Data Source [id number] 08/15/2019 10:47:00 AM EDT [facility] ([facility]) Name Value Range Interpretation Code Description Data Daphney rce(s) Supporting Document(s) Creatine kinase [Enzymatic activity/volume] in Serum or Plasma 88 [facility] ([facility]) MB/CK Relative 1.82 [facility] ([facility]) CPK-MB 1.6 MED[facility] ([facility]) ID Date Data Source [id number] 08/15/2019 10:47:00 AM EDT [facility] ([facility]) Name Value Range Interpretation Code Description Data Daphney rce(s) Supporting Document(s) Albumin [Mass/volume] in Serum or Plasma 3.6 [facility] ([facility]) Alanine aminotransferase [Enzymatic activity/volume] in Serum or Pl asma 30 [facility] ([facility]) Carbon dioxide, total [Moles/volume] in Serum or Plasma 26 [facility] ([facility]) Calcium [Mass/volume] in Serum or Plasma 8.1 [facility] ([facility]) Potassium [Moles/volume] in Serum or Plasma 4.6 [facility] ([facility]) Chloride [Moles/volume] in Serum or Plasma 110 [facility] ([facility]) Alkaline phosphatase [Enzymatic activity/volume] in Serum or Plasma 9 4 [facility] ([facility]) Protein [Mass/volume] in Serum or Plasma 7.0 [facility] ([facility]) Sodium 142 [facility] ([facility]) Urea nitrogen [Mass/volume] in Serum or Plasma 19 [facility] ([facility]) Aspartate aminotransferase [Enzymatic activity/volume] in Serum or Plasma 24 [facility] ([facility]) Creatinine For GFR 1.19 [facility] ([facility]) Glucose 108 83-110 [facility] ([facility]) ID Date Data Source [id number] 05/21/2019 01:44:00 PM EST MEDENT ([facility] [place]) Name Value Range Interpretation Code Description Data Daphney rce(s) Supporting Document(s) Bacteria identified in Urine by Culture Laboratory test result MEDENT ([facility] [place]) SPECIMEN DESCRIPTION MIDSTREAM UR INE,CLEAN CATCH CULTURE RESULTS MIXED UROGENITAL IRENE; PLEASE SUBMIT A NEW SPEC IMEN IF CLINICALLY INDICATED. REPORT STATUS FINAL 05/22/2019 ID Date Data Source [id number] 05/22/2019 01:13:17 PM EST Laboratory [facility] - CORE SPECIMEN DESCRIPTION MIDSTREAM UR INE,CLEAN CATCHCULTURE RESULTS MIXED UROGENITAL IRENE; PLEASE SUBMIT A NEW SPEC IMEN IF CLINICALLY INDICATED.REPORT STATUS FINAL 05/22/2019 Name Value Range Interpretation Code Description Data Daphney rce(s) Supporting Document(s) ID Date Data Source [id number] 05/21/2019 01:03:00 PM EST MEDENT ([facility]) Name Value Range Interpretation Code Description Data Daphney rce(s) Supporting Document(s) Protein [Presence] in Urine by Test strip Laboratory test result MEDENT ([facility]) Ua Nitrite Laboratory test result ME DENT ([facility]) Glucose [Presence] in Urine Laboratory test result MEDENT ([facility]) Ua Leuko Laboratory test result ME DENT ([facility]) Blood [Presence] in Urine by Visual Laboratory test result MEDENT ([facility]) Ketones [Presence] in Urine by Test strip Laboratory test result MEDENT ([facility]) Color of Urine Laboratory test result MEDENT ([facility]) Clarity of Urine Laboratory test result MEDENT ([facility]) Ua Specific [place] 1.010 1.003-1.030 MEDE NT ([facility]) pH of Urine by Test strip 5.5 5.0-7.5 MEDENT ([facility]) Bilirubin.total [Presence] in Urine by Test strip Laboratory test res ult MEDENT ([facility]) Urobilinogen [Mass/volume] in Urine by Test strip 0.2 E.U./dL 0.0-1.0 MEDENT ([facility]) ID Date Data Source [id number] 05/21/2019 12:08:00 PM EST [facility]: XRAY ABDOMEN KUBCLINICAL HISTORY: Calculus [...] rce(s) Supporting Document(s) ID Date Data Source [id number] 04/28/2019 07:54:00 AM EST MEDENT ([facility] [place]) Name Value Range Interpretation Code Description Data Daphney rce(s) Supporting Document(s) Prostate specific Ag [Mass/volume] in Serum or Plasma 0.5 ng/mL 0.0- 4.0 MEDENT ([facility] [place]) [place] ECLIA methodology. According to the [place] [employer], Serum PSA should decrease [...] of malignant disease. ID Date Data Source [id number] 04/29/2019 07:05:00 AM EST [facility] Name Value Range Interpretation Code Description Data Daphney rce(s) Supporting Document(s) Prostate Specific Ag, Serum 0.5 ng/mL 0.0-4.0 [facility] [place] ECLIA methodology. According to th e [place], Serum PSA shoulddecrease and [...] of malignant disease. ID Date Data Source [id number] 04/21/2019 12:00:00 PM EST MEDENT ([facility]) Name Value Range Interpretation Code Description Data Daphney rce(s) Supporting Document(s) Laboratory test finding (navigational concept) Laboratory test result MEDENT ([facility]) ID Date Data Source [id number] 04/21/2019 12:00:00 PM EST MEDENT ([facility]) Name Value Range Interpretation Code Description Data [facility] rce(s) Supporting Document(s) 24 hr Creatinine 1731 mg/d MEDENT ( [facility]) Source of Specimen: Urine 24 hr Calcium per Kilogram Body Weight 0.5 mg/d/kg MEDENT ([facility]) Source of Specimen: Urine 24 hr Creatinine per Kilogram Body Weight 14.2 mg/d/kg 11.9-24.4 MEDENT ([facility]) Source of Specimen: Urine 24 hr Calcium per 24 hr Creatinine 36 mg/g 34-196 MEDENT ([facility]) Source of Specimen: Urine ID Date Data Source [id number] 04/21/2019 12:00:00 PM EST [facility] Name Value Range Interpretation Code Description Data [facility] Supporting Document(s) 24 hr Chloride 244 mmol/d 70-250 MEDENT (As sociated [facility]) Source of Specimen: Urine This value shows an increased risk factor of 2, where 0 is normal and 7 is extremely high. 24 hr Sulfate 42 mEq/d 20-80 MEDENT (Ass oc[facility]) Source of Specimen: Urine 24 hr Ammonium 75 mmol/d 15-60 MEDENT ([facility] [place]) Source of Specimen: Urine 24 hr Potassium 71 mmol/d 20-100 MEDENT (A ssociated [facility]) Source of Specimen: Urine 24 hr Phosphorus 1.728 g/d 0.60-1.20 MEDENT ( [facility]) Source of Specimen: Urine This value shows an increased risk factor of 3, where 0 is normal and 7 is extremely high. 24 hr Sodium 245 mmol/d 50-150 MEDENT (Asso ciated [facility]) Source of Specimen: Urine This value shows an increased risk factor of 2, where 0 is normal and 7 is extremely high. 24 hr Magnesium 168 mg/d 30-120 MEDENT (A ssociated [facility]) Source of Specimen: Urine 24 hr Urea Nitrogen 16.50 g/d 6.00-14.00 DREW Alfaro ([facility] [place]) Source of Specimen: Urine This value shows an increased risk factor of 1, where 0 is normal and 7 is extremely high. Protein Catabolic Rate 1.0 g/kg/d 0.8-1.4 ME JAVED ([facility] [place]) Source of Specimen: Urine ID Date Data Source [id number] 04/21/2019 12:00:00 PM EST ALFRED ([facility] [place]) Name Value Range Interpretation Code Description Data Daphney rce(s) Supporting Document(s) Interpretations Collection A Laboratory test result MEDNATALY ([facility] [place]) Source of Specimen: Urine Clinical Sciences Professor's Note: At least one urine analyte was [...] = 42 meq/d). ID Date Data Source [id number] 04/21/2019 12:00:00 PM EST MEDENT ([facility] [place]) Name Value Range Interpretation Code Description Data Daphney rce(s) Supporting Document(s) 24 hr Oxalate 168 mg/d 20-40 MEDENT ([facility] [place]) Source of Specimen: Urine This value shows an increased risk factor of 5, where 0 is normal and 7 is extremely high. 24 hr Uric Acid 0.345 g/d MEDENT ([facility] [place]) Source of Specimen: Urine pH 5.508 5.800-6.200 [facility] ([facility]) Source of Specimen: Urine This value shows an increased risk factor of 3, where 0 is normal and 7 is extremely high. 24 hr Calcium 62 mg/d [facility] ([facility]) Source of Specimen: Urine 24 hr Citrate Laboratory test result [facility] ([facility] [place]) Source of Specimen: Urine This value shows an increased risk factor of 5, where 0 is normal and 7 is extremely high. Supersaturation CaOx 4.50 6.00-10.00 [facility]E NT ([facility] [place]) Source of Specimen: Urine Urine Volume 3.03 L/d 0.50-4.00 [facility] ([facility]) Source of Specimen: Urine Supersaturation CaP 0.08 0.50-2.00 [facility] T ([facility]) Source of Specimen: Urine Supersaturation Uric Acid 0.52 [facility] ([facility]) Source of Specimen: Urine Procedure Social History Code Duration Value Status Description Data Source(s ) Smoking 03/02/2020 12:00:00 AM EST Former Cigarette Smoker com pleted Former Cigarette Smoker [facility] ([facility]) Alcohol intake 02/25/2020 12:00:00 AM EST No completed [facility] Cigarette pack-years 02/25/2020 12:00:00 AM EST UNK completed [facility] Cigarettes smoked current (pack per day) - Reported 02/25/20 12:00:00 AM EST UNK completed [facility] Smoking 02/25/2020 12:00:00 AM EST Former smoker completed Former smoker [facility] Smoking 01/22/2020 05:47:00 PM EDT Former Smoker completed Former Smoker [facility] Smoking 01/20/2020 02:06:00 PM EDT Former Smoker completed Former Smoker [facility] Smoking 09/02/2019 12:00:00 AM EDT Patient is a former smoker completed Patient is a former smoker [facility] ([facility]) Vital Signs ID Date Data Source UNK Name Value Range Interpretation Code Description Data Source(s) Body mass index (BMI) [Ratio] 44.7 kg/m2 44.7 k g/m2 [facility] ([facility]) Body height 68 [in_i] 68 [in_i] [facility]) 5'8" Body weight 294.00 [lb_av] 294.00 [lb_av] [facility] T ([facility]) Oxygen saturation in Arterial blood by Pulse oximetry 98 % 98 % [facility] Respiratory rate 16 /min 16 /min [facility] Heart rate 78 /min 78 /min [facility] Diastolic blood pressure 70 mm[Hg] 70 mm[Hg] [facility] Systolic blood pressure 128 mm[Hg] 128 mm[Hg] [facility] Body temperature 98.1 [degF] 98.1 [degF] [facility] ([facility] Body temperature 36.72 Aydee 36.72 Aydee [facility] Body mass index (BMI) [Ratio] 43.79 kg/m2 43.79 kg/m2 [facility] ([facility] [place] Body weight 130.636 kg 130.636 kg [facility] ([facility] Body weight 288.00 [lb_av] 288.00 [lb_av] [facility] T ([facility] Body height 67.99 [in_i] 67.99 [in_i] [facility] ([facility] [place] 5'7.99" Body mass index (BMI) [Ratio] 43.79 kg/m2 43.79 kg/m2 [facility] Body weight 130.636 kg 130.636 kg [facility] Body height 172.7 cm 172.7 cm [facility] Heart rate 68 /min 68 /min [facility] ([facility] [place] Diastolic blood pressure 85 mm[Hg] 85 mm[Hg] [facility] ([facility] Systolic blood pressure 115 mm[Hg] 115 mm[Hg] [facility] ([facility] Body mass index (BMI) [Ratio] 45.3 kg/m2 45.3 k g/m2 [facility] ([facility] Body weight 135.173 kg 135.173 kg [facility] ([facility] Body weight 298.00 [lb_av] 298.00 [lb_av] [facility] T ([facility] Body height 68 [in_i] 68 [in_i] [facility] ([facility] [place] 5'8" Body temperature 36.5 aydee Normal (applies to non-numeric results) 36.5 aydee [facility] Respiratory rate 19 min Normal (applies to non-numeric results) 19 min [facility] Heart rate 63 min Normal (applies to non-numeric resul ts) 63 min [facility] Diastolic blood pressure 80 mm[Hg] Normal (applies to non-numeric results) 80 mm[Hg] [facility] Systolic blood pressure 156 mm[Hg] Normal (applies t o non-numeric results) 156 mm[Hg] [facility] Deprecated Oxygen saturation in Capillary blood by Oximetry 96 % Normal (applies to non-numeric results) 96 % [facility] Body weight Measured 134.717 kg Normal (applies to n on-numeric results) 134.717 kg [facility] Body height 171.9072 cm Normal (applies to non-numeric res ults) 171.9072 cm [facility] Body mass index (BMI) [Ratio] 45.16 kg/m2 No rmal (applies to non-numeric results) 45.16 kg/m2 [facility] Body temperature 36.8 aydee Normal (applies to non-numeric results) 36.8 aydee [facility] Respiratory rate 20 min Normal (applies to non-numeric results) 20 min [facility] Heart rate 73 min Normal (applies to non-numeric resul ts) 73 min [facility] Diastolic blood pressure 72 mm[Hg] Normal (applies to non-numeric results) 72 mm[Hg] [facility] Systolic blood pressure 116 mm[Hg] Normal (applies t o non-numeric results) 116 mm[Hg] [facility] Body weight Measured 118.4 kg Normal (applies to n on-numeric results) 118.4 kg [facility] Body height 171.9072 cm Normal (applies to non-numeric res ults) 171.9072 cm [facility] Deprecated Oxygen saturation in Capillary blood by Oximetry 97 % Normal (applies to non-numeric results) 97 % [facility] Body temperature 97.0 [degF] 97.0 [degF] [facility] ([facility] [place] Heart rate 73 /min 73 /min [facility] ([facility] [place] Diastolic blood pressure 84 mm[Hg] 84 mm[Hg] [facility] ([facility] [place] Systolic blood pressure 133 mm[Hg] 133 mm[Hg] [facility] ([facility] Body mass index (BMI) [Ratio] 45.3 kg/m2 45.3 k g/m2 [facility] ([facility] [place] Body weight 135.173 kg 135.173 kg [facility] ([facility] [place] Body weight 298.00 [lb_av] 298.00 [lb_av] [facility] T ([facility] [place] Body height 68 [in_i] 68 [in_i] [facility] ([facility] [place] 5'8" Diastolic blood pressure--sitting 68 mm[Hg] 68 mm[Hg] [facility] ([facility]) large cuff, Ra Systolic blood pressure--sitting 122 mm[Hg] 122 mm[Hg] [facility] large cuff, Ra Heart rate 65 /min 65 /min [facility] ([facility]) Body mass index (BMI) [Ratio] 44.8 kg/m2 44.8 k g/m2 [facility] ([facility]) Body height 68 [in_i] 68 [in_i] [facility]) 5'8" Body weight 295.00 [lb_av] 295.00 [lb_av] DREW Alfaro ([facility])
--- OUTSIDE RECORDS SUMMARY | 2020-04-25 04:56 | CCD ---
Author Author [facility] Organization [facility] Address Unknown Phone Unavailable Care Team Providers Care Cotton Jammer Name Role Phone FIGUEROA, Ranjit SR MD [...] Unavailable Unavailable Phani CATALAN MD Unavailable Unavailable Phnai CATALAN MD Unavailable Unavailable Phani CATALAN MD [...] Unavailable CATALAN E PREET ORTIZ Unavailable Unavailable CATALNA E PREET ORTIZ Unavailable Unavailable CATALAN, E [...] PREET ORTIZ Unavailable Unavailable Khanna, A Soledad QUALITY CONTROL LEAD Unavailable Unavailable Khanna, A Soledad QUALITY CONTROL LEAD Unavailable Unavailable Khanna, A Soledad QUALITY CONTROL LEAD Unavailable Unavailable Khanna, A Soledad QUALITY CONTROL LEAD Unavailable Unavailable Khanna, A Soledad QUALITY CONTROL LEAD Unavailable Unavailable Khanna, A Soledad QUALITY CONTROL LEAD Unavailable Unavailable Khanna, A Soledad QUALITY CONTROL LEAD Unavailable Unavailable Khanna, A Soledad QUALITY CONTROL LEAD Unavailable Unavailable Khanna, A Soledad QUALITY CONTROL LEAD Unavailable Unavailable Khanna, A Soledad QUALITY CONTROL LEAD Unavailable Unavailable Khanna, A Soledad QUALITY CONTROL LEAD Unavailable Unavailable Khanna, A Soledad QUALITY CONTROL LEAD Unavailable Unavailable Khanna, A Soledad QUALITY CONTROL LEAD Unavailable Unavailable Khanna, A Soledad QUALITY CONTROL LEAD Unavailable Unavailable Khanna, A Soledad QUALITY CONTROL LEAD Unavailable Unavailable Khanna, A Soledad QUALITY CONTROL LEAD Unavailable Unavailable Khanna, A Soledad QUALITY CONTROL LEAD Unavailable Unavailable Khanna, A Soledad QUALITY CONTROL LEAD Unavailable Unavailable Khanna, A Soledad QUALITY CONTROL LEAD Unavailable Unavailable Khanna, A Soledad QUALITY CONTROL LEAD Unavailable Unavailable Khanna, A Soledad QUALITY CONTROL LEAD Unavailable Unavailable Khanna, A Soledad QUALITY CONTROL LEAD Unavailable Unavailable Khanna, A Soledad QUALITY CONTROL LEAD Unavailable Unavailable Khanna, A Soledad QUALITY CONTROL LEAD Unavailable Unavailable Khanna, A Soledad QUALITY CONTROL LEAD Unavailable Unavailable Khanna, A Soledad QUALITY CONTROL LEAD Unavailable Unavailable Khanna, A Soledad QUALITY CONTROL LEAD Unavailable Unavailable Khanna, A Soledad QUALITY CONTROL LEAD Unavailable Unavailable Khanna, A Soledad QUALITY CONTROL LEAD Unavailable Unavailable Khanna, A Soledad QUALITY CONTROL LEAD Unavailable Unavailable Khanna, A Soledad QUALITY CONTROL LEAD Unavailable Unavailable Khanna, A Soledad QUALITY CONTROL LEAD Unavailable Unavailable Khanna, A Soledad QUALITY CONTROL LEAD Unavailable Unavailable Khanna, A Soledad QUALITY CONTROL LEAD Unavailable Unavailable Khanna, A Soledad QUALITY CONTROL LEAD Unavailable Unavailable Khanna, A Soledad QUALITY CONTROL LEAD Unavailable Unavailable Khanna, A Soleadd QUALITY CONTROL LEAD Unavailable Unavailable Khanna, A Soledad QUALITY CONTROL LEAD Unavailable Unavailable Khanna, A Soledad QUALITY CONTROL LEAD Unavailable Unavailable Khanna, A Soledad QUALITY CONTROL LEAD Unavailable Unavailable Khanna, A Soledad QUALITY CONTROL LEAD Unavailable Unavailable Khanna, A Soledad QUALITY CONTROL LEAD Unavailable Unavailable Khanna, A Soledad QUALITY CONTROL LEAD Unavailable Unavailable Khanna, A Soledad QUALITY CONTROL LEAD Unavailable Unavailable Khanna, A Soledad QUALITY CONTROL LEAD Unavailable Unavailable Khanna, A Soledad QUALITY CONTROL LEAD Unavailable Unavailable Khanna, A Soledad QUALITY CONTROL LEAD Unavailable Unavailable Khanna, A Soledad QUALITY CONTROL LEAD Unavailable Unavailable Khanna, A Soledad QUALITY CONTROL LEAD Unavailable Unavailable Derosalia, R Sarthak ORTIZ Unavailable [...] (Victor Manuel) MD Unavailable Unavailable Tin, Keturah Rzoina (Victor Manuel) MD Unavailable Unavailable Tin, Keturah [...] Unavailable Nilay PRIDE MD Unavailable Unavailable Nilay PRDIE MD Unavailable Unavailable Nilay PRIDE MD Unavailable [...] of the [facility] Public Health law. If you continue you may have access to information: Regarding HIV / AIDS; Provided by facilities licensed or operated by the [facility] Office of Mental Health; or Provided by the [facility] Office for People With Developmental Disabilities. If such information is present, then the following [facility] mandated warning applies: This information has been [...] law may result in a fine or shelter sentence or both. A general authorization for the release of medical or other information is NOT sufficient authorization for further disc losure. Allergies and Adverse Reactions Type Description Substance Reaction Status Data Source(s ) Adverse Reaction Adverse Reaction NSAIDS [facility] ([facility]) Propensity to adverse reactions NSAIDS Nsaids Acti ve [facility] Family History Family Member Name Family Member Gender Family Member Status Date o f Status Description Data Source(s) Unknown Unknown Problem [facility] ([facility]) Unknown Female Problem [facility] ([facility] ) Unknown Female Problem MEDENT ([facility] ) Unknown Female Problem MEDENT ([facility] ) Unknown Female Problem MEDENT ([facility] ) Unknown Female Problem [facility] ([facility] ) Encounters Encounter Providers Location Date Indications Data Source(s ) O Attender: Mamadou GREEN 04/13/19 12:34:34 PM EST - 04/13/2020 01:24:27 PM EST [facility] ([facility] ) Outpatient Referrer: Sarthak Montana MD 03/08/2020 11:25: 52 AM EST [facility] Outpatient Referrer: Sarthak Montana MD MOB-MOB.PAT 09:49:23 AM EST - 02/21/2020 09:49:27 AM EST [facility] Inpatient Attender: Sarthak Pemberton DAttender: Gregory Frazier JRAdmitter: Sarthak Montana MDReferrer: Sarthak Montana MD [email or web address].PERIOP 02/16/2020 0 9:55:13 AM EST - 02/25/2020 01:45:00 PM EST [facility] Patient discharged. Outpatient Referrer: Sarthak Montana MD 02/02/2020 11:42: 03 AM EST [facility] Outpatient Attender: Sarthak [place] MD [place] Uro logy 02/02/2020 11:40:00 AM EST [facility] ([facility]) Inpatient Attender: QUINTON PRIDE MD 01/22/2020 0 6:37:49 PM EDT [facility] [place] [facility] Inpatient Attender: QUINTON PRIDE MDAdmitt er: QUINTON PRIDE MD 01/22/2020 03:40:00 PM EDT - 01/25/2020 04:48:00 PM ES T SEPSIS FROM URINARY TRACT INFECTION FEVER S/P URETERAL STENT [facility] SEPSIS FROM URINARY TRACT INFECTION FEVE R S/P URETERAL STENT Patient discharged. Inpatient Attender: QUINTON PRIDE MD 01/22/2020 0 3:40:00 PM EDT [facility] [place] ( in Healthcare facility) Attender: LA PRIDE MDAdmitter: QUINTON PRIDE MDConsultant: REMBERTO MARTI MD 01/22/2020 03:40:00 PM EDT [facility] Inpatient Attender: Raji Wynne MD 01/20/2020 01:27:5 0 PM EDT [facility] [place] [facility] D Attender: Raji Wynne MD 11:54:00 AM EDT - 01/21/2020 02:23:00 PM EDT [facility] Inpatient Attender: Raji Wynne MDAdmitter: Raji Sharp MD 01/20/2020 11:54:00 AM EDT - 01/21/2020 02:23:00 PM EDT RENAL CALCULUS HYDRONEPHROSIS [facility] RENAL CALCULUS HYDRONEPHROSIS Patient discharged. [place] ( in Healthcare facility) Attender: Klaus Wynne MDAdmitter: Raji Wynne MDConsultant: REMBERTO MARTI MD 01/20/2020 11:54:00 AM EDT [facility] Outpatient Attender: SHARON GREEN Physical Therapy 12/30/2019 0 9:15:00 AM EDT MED[facility] ([facility]) Office Visit Attender: SHARON GREEN Physical Therapy 2019 08:30:00 AM EDT [facility] ([facility]) Outpatient Attender: SHARON GREEN Physical Therapy 11/14/2019 0 5:30:00 PM EDT MEDENT ([facility]) Outpatient Attender: SHARON GREEN Physical Therapy 11/07/2019 1 1:00:00 AM EDT MED[facility] ([facility]) Attender: Keturah Gordon (Jack) MDReferrer: PREET CATALAN MD 10/03/2019 08:20:07 PM EDT [facility] Outpatient Attender: Soledad Khanna NP [place]/ A.M.P. Urolog y 09/22/2019 02:30:00 PM EDT [facility] Outpatient Attender: Shanae GREEN Main Office 09/02/2019 10:15:0 0 AM EDT MED[facility] ([facility]) Outpatient Referrer: Sarthak Montana MD 05/21/2019 12:07: [address] [facility] Outpatient Attender: Soledad Khanna NP [place]/ A.Roxie[facility]. Urolog y 05/21/2019 12:00:00 PM EST [facility] ([facility]) Medications Medication Brand Name Start Date Product Form Dose Route Admi nistrative Instructions Pharmacy Instructions Status Indications Reaction Description Data Source(s) Blood Pressure Monitor Automatic/Arm 03/15/2020 12:00:00 AM EST active [facility] ([facility]) Tamsulosin hydrochloride 0.4 MG Oral Capsule Tamsulosin HCL 03/14/2020 12:00:00 AM EST ORAL active [facility] ([facility]) Sulfamethoxazole 800 MG / Trimethoprim 160 MG Oral Tablet [B actrim] Bactrim DS 03/08/2020 12:00:00 AM EST ORAL active [facility] ([facility]) normal saline flush 0.9 % injection 3 mL [id number] 02/25/2020 02:00:00 PM EST 3 mL Intravenous active 3 mL , Intravenous, Every 8 hours (scheduled), First dose on Sun02/25/20 at 1400, PACU (only)
flush per protocol, D/C Main IV fluid if appropriate
[facility] Medication administered onsite ondansetron (ZOFRAN) injection 4 mg [id number] 02/25/2020 12:07:2 3 PM EST 4 mg Intravenous active 4 mg, In travenous, Once as needed, nausea, vomiting, Starting Sun02/25/20 at 1207, For 1 dose, PACU (only)
If not given in last 4 hours
[facility] Medication administered onsite Albuterol 0.833 MG/ML / Ipratropium Brom horacio 0.167 MG/ML Inhalant Solution ipratropium-albuterol (DUO-NEB) 0.5-2.5 mg/mL nebulizer solution 3 mL ipratropium-albuterol (DUO-NEB) 0.5-2.5 mg/mL nebulizer solution 3 mL 02/25/2020 12:07:23 PM EST 3 mL Inhalation active 3 mL, Inhalation, Once as needed, shortness of breath, Starting Sun02/25/20 at 1207, For 1 dose, PACU (only) [facility] Medication administered onsite 10 ML Atropine [...] or 0.04 mg/kg. Max of 6 doses
[facility] Medication administered onsite HYDROmorphone (DILAUDID) injection 0.5 mg [id number] 02/25/2020 12:07:22 PM EST 0.5 mg Intravenous active 0.5 mg, Intravenous, Every 5 min PRN, severe pain (7-10), Starting Sun02/25/20 at 1207, For 5 doses, PACU (only) [facility] Medication administered onsite fentaNYL Citrate (PF) (SUBLIMAZE) injection 25 mcg [id number] 02/25/2020 12:07:22 PM EST 25 ug Intravenous active 25 mcg, Intravenous, Every 5 min PRN, moderate pain (4 to 6), Starting Sun02/25/20 at 1207, For 5 doses, PACU (only) [facility] Medication administered onsite normal saline flush 0.9 % injection 3 mL [id number] 02/25/2020 10:00:00 AM EST 3 mL Intravenous active 3 mL , Intravenous, Every 8 hours (scheduled), First dose on Sun02/25/20 at 1000, Pre-op
Rapid push positive pressure flushing shall be performed with a 10 cc normal saline syringe to check the PATENCY of a PIV site prior to any infusion therapy initiation unless resistance is met.
[facility] Medication administered onsite tramadol hydrochloride 50 MG Oral Tablet Tramadol HCL 11/07/2019 12:00:00 AM EDT active [facility] ([facility]) Triamcinolone Acetonide 1 MG/ML Topical Cream Triamcinolone Acetonide 09/01/2019 12:00:00 AM EDT active MED[facility] ([facility]) Nystatin 100 UNT/MG Topical Powder [Nyamyc] Nyamyc 09/01/2019 12:00:00 AM EDT active [facility] ([facility]) Betamethasone 0.5 MG/ML / Clotrimazole 10 MG/ML Topica l Cream Clotrimazole/Betamethasone Dipropionate 09/01/2019 12:00:00 AM EDT active [facility] ([facility]) sildenafil 100 MG Oral Tablet [Viagra] Viagra 09/01/2019 12:00:00 AM EDT ORAL active [facility] ([facility]) Insurance Providers Payer name Policy type / Coverage type Policy ID Covered republican ID Covered republican's relationship to whitfield Policy [place] Plan Information [facility] [id number] SP [id number] [facility] [employer] Co. [id number] Fe f [id number] SELF PAY ONLY [id number] SP [id number] [facility] MEDICARE [id number] Fe [id number] INSURANCE COVID-19 COVID Fe C OVID [facility] MEDICARE [id number] Fe [id number] [facility] MEDICARE [id number] 24 [id number] INSURANCE COVID-19 [id number] [facility] MEDICARE [id number] 24 [id number] MEDICARE NICOLE [id number] S [id number] [id number] S [id number] [facility] HEALTH PLANS CLAIMS DEPT [id number] [facility] [id number] SP [id number] [facility] HEALTH CARE [id number] SP [id number] [facility] MEDICARE Fe [id number] [facility] PREMIER EXCHANGE [id number] Fe [id number] MEDICARE [id number] Fe [id number] [facility] [id number] Fe [id number] MVP [id number] Fe [id number] WELLCARE MEDICARE PI PI Wellcare MCR - To Ppo Commercial [id number] Self [id number] MVP Indemnity Commercial [id number] 01 Self [id number] Wellcare MCR - To Ppo Commercial [id number] Self [id number] Wellcare-Todays Opts Ppo Commercial [id number] Self [id number] MVP Health Plan Medigap Part B [id number] Family Dependent [id number] Wellcare-Todays Opts Ppo Commercial [id number] Self [id number] MVP PREMIER EXCHANGE [id number] Fe [id number] MVP Health Plan Health Maintenance Organization (HMO) [id number] Family Dependent [id number] MEDICARE [id number] Fe [id number] MEDICARE C [id number] S [id number] A MVP HEALTH CARE O [id number] P [id number] MVP Indemnity Commercial [id number] Self [id number] MEDICARE [id number] Fe [id number] A MVP HEALTH CARE HEA [id number] SP [id number] UNAVAILABLE UNAVAILA BLE MEDICARE MCA [id number] S [id number] A MVP HEALTH CARE HEA [id number] SP [id number] MEDICARE PI PI MVP PREMIER EXCHANGE PI PI MEDICARE [id number] SP [id number] A MVP HEALTH CARE [id number] WI2 80 [id number] MVP H [id number] Self [id number] MVP H [id number] Self [id number] MEDICARE A [id number] Self [id number] A [employer] Insurance Commercial [id number] Family Dependent [id number] [place] Medigap Part B [id number] Family Depend ent [id number] BS [place] Medigap Part B [id number] BS [place] Medigap Part B [id number] Family Depend ent [id number] MVP (pr) Commercial [id number] Family Dependent [id number] MVP (pr) Commercial [id number] Family Dependent [id number] MVP H [id number] Self [id number] MVP [id number] Fe [id number] [place] Insurance Commercial [id number] Family Dependent [id number] BS [place] Medigap Part B [id number] Family Depend ent [id number] BS [place] Medigap Part B [id number] BS [place] Medigap Part B [id number] Family Depend ent [id number] MVP (pr) Commercial [id number] Family Dependent [id number] [employer] Insurance Commercial [id number] Family Dependent [id number] BS [place] Medigap Part B [id number] Family Depend ent [id number] BS [place] Medigap Part B [id number] BS [place] Medigap Part B [id number] Family Depend ent [id number] MVP (pr) Commercial [id number] Family Dependent [id number] MVP HEALTH CARE [id number] SP [id number] MEDICARE [id number] SP [id number] A MVP HEALTH CARE [id number] SP [id number] MVP PREMIER EXCHANGE [id number] Fe [id number] MVP HEALTH CARE [id number] SP [id number] MVP Indemnity Commercial Self MVP PREMIER EXCHANGE [id number] Fe [id number] MVP Cigna Ppo Commercial Family Dependent MVP Gold Commercial Family Dependent BCBS [place] PPO [id number] EXCELLUS BCBS B [id number] P [id number] MVP (pr) Commercial Family Dependent [place] Insurance Commercial Family Dependent BS [place] Medigap Part B Family Dependent BS [place] Medigap Part B BS [place] Commercial Family Dependent [id number] Problems, Conditions, and Diagnoses Code Display Name Description Problem Type Effective Dates Data Source(s) N20.1 Calculus of ureter Calculus of ureter Diagnosis 04/2019 08:17:00 AM [facility] U07.1 COVID-19 COVID-19 Diagnosis 02/21/2020 09:49:23 AM ES [facility] Surgeries/Procedures Procedure Description Date Indications Data Source(s) CYSTO W/SIMPLE REMOVAL STONE & STENT 03/08/2020 12:00: 00 AM EST [facility] ([facility]) FL RETROGRADE PYELOGRAM RIGHT FL RETROGRADE PYELOGRAM RIGHT S TAT 02/25/2020 1:02 PM EST 02/25/2020 06:02:09 PM EST [facility] GLUC BLD GLUC MNTR DEV CLEARED FDA SPEC HOME USE POCT GLUCOSE Routine 02/25/2020 12:51 PM EST 02/25/2020 05:51:00 PM EST [facility] GLUC BLD GLUC MNTR DEV CLEARED FDA SPEC HOME USE POCT GLUCOSE Routine 02/25/2020 9:27 AM EST 02/25/2020 02:27:00 PM [facility] CYSTO W/INSERT URETERAL STENT 02/25/2020 12:00:[address] [facility] ([facility]) CYSTO W/URETEROSCOPY W/RMVL/MANJ STONES 02/25/2020 12: 00:00 AM EST [facility] ([facility]) CYSTO W/URETEROSCOPY W/LITHOTRIPSY 02/25/2020 12:00:00 AM EST [facility] ([facility]) Echocardiography, Tranthoracic Real-Time Image Documentation 01/23/2020 12:00:00 AM EDT [facility] Electrocardiogram Interpretation & Report Only 020 12:00:00 AM EDT [facility] ([facility]) CYSTO W/INSERT URETERAL STENT 01/20/2020 12:00:00 AM E DT MED[facility] ([facility]) CT ABDOMEN & PELVIS W/O CONTRAST MATERIAL 01/20/2020 1 2:00:00 AM EDT [facility] ([facility]) X-RAY URINARY TRACT EXAM WITH CONTRAST MATERIAL 2019 12:00:00 AM EDT [facility] ([facility]) Physical Therapy Eval - Low Complexity 01/07/2020 12:0 0:00 AM EDT MED[facility] ([facility]) RADEX ANKLE COMPLETE MINIMUM 3 VIEWS 12/30/2019 12:00: 00 AM EDT MED[facility] ([facility]) RADEX ANKLE COMPLETE MINIMUM 3 VIEWS 12/05/2019 12:00: 00 AM EDT [facility] ([facility] FX Lateral Malleolus (Distal Fibula) W/O Manipulation 11/14/2019 12:00:00 AM EDT [facility] ([facility]) RADEX SHOULDER COMPLETE MINIMUM 2 VIEWS 11/14/2019 12: 00:00 AM EDT [facility] ([facility]) RADEX ANKLE COMPLETE MINIMUM 3 VIEWS 11/14/2019 12:00: 00 AM EDT [facility] ([facility]) RADEX SHOULDER COMPLETE MINIMUM 2 VIEWS 11/07/2019 12: 00:00 AM EDT [facility] ([facility] ) RADEX ANKLE COMPLETE MINIMUM 3 VIEWS 11/07/2019 12:00: 00 AM EDT [facility] ([facility] ) MYOCARDIAL SPECT MULTIPLE STUDIES 09/29/2019 12:00:00 AM EDT [facility] ([facility]) CV STRS TST XERS&/OR RX CONT ECG PHYS SI&R 09/29/2019 12:00:00 AM EDT [facility] ([facility]) US RETROPERITONEAL REAL TIME W/IMAGE COMPLETE 09/22/19 12:00:00 AM EDT [facility] ([facility]) US RETROPERITONEAL REAL TIME W/IMAGE COMPLETE 09/22/19 12:00:00 AM EDT [facility] ([facility]) ECG ROUTINE ECG W/LEAST 12 LDS W/I&R 09/02/2019 12:00: 00 AM EDT [facility] ([facility]) Results ID Date Data Source [id number] 04/13/2020 12:00:00 AM EST [facility] Name Value Range Interpretation Code Description Data Daphney rce(s) Supporting Document(s) Carestart Rapid COVID Antigen Test Positive [facility] This lab was reported by Madeline altamirano. ID Date Data Source [id number] 04/13/2020 12:00:00 AM EST [facility] Name Value Range Interpretation Code Description Data Daphney rce(s) Supporting Document(s) SARS-CoV-2 (COVID-19) RNA [Presence] in Respiratory specimen by [facility] with probe detection Not Detected [facility] This lab was ordered by [facility] and reported by [employer]. ID Date Data Source [id number] 03/30/2020 12:00:00 AM EST [facility] Name Value Range Interpretation Code Description Data Daphney rce(s) Supporting Document(s) SARS coronavirus 2 RNA Not Detected [facility] This lab was ordered by [facility] and rep orted by [facility]. ID Date Data Source [id number] 03/08/2020 12:43:00 PM EST [facility] ([facility] Name Value Range Interpretation Code Description Data Daphney rce(s) Supporting Document(s) Glucose [Presence] in Urine Laboratory test result [facility] ([facility]) Protein [Presence] in Urine by Test strip Laboratory test result [facility] ([facility]) Ua Nitrite Laboratory test result [place] D[facility] ([facility]) Blood [Presence] in Urine by Visual Laboratory test result [facility] ([facility]) Ua Leuko Laboratory test result [facility] ([facility] Color of Urine Laboratory test result [facility] ([facility]) Ketones [Presence] in Urine by Test strip Laboratory test result [facility] ([facility]) Clarity of Urine Laboratory test result [facility] ([facility]) Ua Specific [place] 1.015 1.003-1.030 MEDE NT ([facility]) Bilirubin.total [Presence] in Urine by Test strip Laboratory test res ult [facility] ([facility]) pH of Urine by Test strip 5.5 5.0-7.5 [facility] ([facility]) Urobilinogen [Mass/volume] in Urine by Test strip 0.2 E.U./dL 0.0-1.0 [facility] ([facility]) ID Date Data Source [id number] 03/08/2020 11:28:00 AM EST [facility] XRAY ABDOMEN [...] rce(s) Supporting Document(s) ID Date Data Source [id number] 02/25/2020 07:26:00 PM EST [facility] ([facility] Name Value Range Interpretation Code Description Data Daphney rce(s) Supporting Document(s) Laboratory test finding (navigational concept) 140 mg/dL 70-99 [facility] ([facility]) PERFORMED BY [facility] ID Date Data Source [id number] 02/25/2020 01:55:29 PM EST [address] [address]Rsptajy Name: JOSE VILLATORODOB: 1955Sex: MOrdering Provider: SARTHAK Bustamante Prov: SARTHAK Kohler Provider: Procedure Performed: FL RETROGRADE PYELOGRAM RIGHTExam Date: 02/25/2020 13:02MRN: [id number] Number: [id number] Class: InpatientAccount #: [id number] for Exam: Right ureteral stone [N20.1]Technique: Fluoroscopy with no digital spot images obtained.Fluoroscopy time: 11 SecondsNumber of Spot Images: 0Comparison: NoneFindings: C-arm was performed in OR. 7 spot radiographs are obtained. Fluoroscopic time: 11.2 seconds. There is placement of a ureteral stent.IMPRESSION: C-arm in OR as described.Report electronically signed by: JAMES CARBAJAL On 02/25/2020 1:55 PMWorkstation ID: [id number] Name Value Range Interpretation Code Description Data Daphney rce(s) Supporting Document(s) ID Date Data Source [id number] 02/25/2020 02:26:46 PM EST [facility] [place] [facility] Name Value Range Interpretation Code Description Data Daphney rce(s) Supporting Document(s) POC NOVA GLU 140 mg/dL (70-99) H [facility] [place] [facility] [place] [facility] PERFORMED BY [facility] STAFF ID Date Data Source [id number] 02/25/2020 11:56:00 AM EST [facility] ([facility]) Name Value Range Interpretation Code Description Data [facility] rce(s) Supporting Document(s) Composition in Stone Laboratory test result [facility] ([facility]) Calculi composed primarily of: 90% calcium [...] composition determined by FTIR analysis. Performed By: [employer] [address] [place] [id number] Machine Stitcher: yN Mckeon MD Size [Entitic volume] of Stone Laboratory test result [facility] ([facility]) Unit: mm Number of Stones 1 [facility] ([facility]) Weight of Unspecified specimen 166 mg [facility] ([facility]) Appearance of Stone Laboratory test result [facility] ([facility]) Specimen consists of a single, large, brown, irregular calculus. ID Date Data Source [id number] 02/29/2020 07:49:20 AM EST [facility] [place] [facility] [place] Name Value Range Interpretation Code Description Data [facility] rce(s) Supporting Document(s) COMPOSITION [facility] [place] [facility] See Note Calculi composed primarily of: 90% [...] composition determined by FTIR analysis. Performed By: [employer] [address] [place] [address] Machine Stitcher: Ny Mckeon MD MASS 166 mg [facility] [place] [facility] [place] CALCULI NUMBER 1 [facility] [place] [facility] [place] CALCULI SIZE [facility] [place] [facility] [place] > 9Unit: mm CALCULI DESCRIPTION [facility] [place] See Note Specimen consists of a single, large, brown, irregular calculus. ID Date Data Source [id number] 02/25/2020 11:49:00 AM EST [facility] INFORMATIONPatient MRN Name Date of Age Gend*PT [id number] Alexei Villatororicky Bernard 1955 64 years M SDCXPT Location Admission Date/Time Visit ID [facility] 0817 --- Sarthak Montana MD([id number]) EPI ID CSN Admitting Provider [id number] Sarthak Montana MD([id number])OPERATIVE NOTEPatient Name: Jose VillatoroMedical Record Number: [id number] of Procedure: 02/25/2020Surgeon: Sarthak Montana M.D.Pre-operative diagnosis: right ureteral calculiPost-operative diagnosis: SameProcedure: cystoscopy, right ureteroscopy, basket stone removal, right ureteralstent exchangeAnesthesia: GABlood/fluids administered: crystalloidEstimated blood loss: minimalComplications: NoneSpecimens: right ureteral calculiDrains: Right 6 Iranian multi-length ureteral stentProcedure:Informed consent was obtained. Antibiotics [...] a w blanka in place.A right 6 Iranian multi-length ureteral stent was placed using cystoscopic andfluoroscopic guidance without difficulty.The bladder was emptied and the scope was withdrawn.There were no surgical complications.Sarthak Montana M.D.Date: 02/25/2020Time: 11:46 AM Name Value Range Interpretation Code Description Data Daphney rce(s) Supporting Document(s) ID Date Data Source [id number] 02/25/2020 10:06:34 AM EST [facility]FORMATIONPatient MRN Name Date of Age Gend*PT [id number] Jose Villatoro 1955 64 years M SDCXPT Location Admission Date/Time Visit ID [facility]/25/20816 --- Sarthak Montana MD([id number]) EPI ID [facility] Admitting Provider [id number] Sarthak Montana MD([id number])Pre-Procedure History and Physical:The history and physical were reviewed and the patient was examined.Reviewed and updated. No changes.Sarthak Montana MD02/24/2010:06 AM Name Value Range Interpretation Code Description Data Daphney rce(s) Supporting Document(s) ID Date Data Source [id number] 02/25/2020 09:27:00 AM EST [facility] ([facility] [place]) Name Value Range Interpretation Code Description Data Daphney rce(s) Supporting Document(s) Glucose [Mass/volume] in Capillary blood by Glucometer 140 mg/dL 70- 99 [facility] ([facility] [place]) PERFORMED BY [facility] ID Date Data Source [id number] 02/25/2020 09:30:08 AM EST [facility] [place] [facility] Name Value Range Interpretation Code Description Data Daphney rce(s) Supporting Document(s) POC NOVA GLU 143 mg/dL (70-99) H Lab [facility] PERFORMED BY [facility] STAFF ID Date Data Source [id number] 02/21/2020 09:40:00 AM EST [facility] Name Value Range Interpretation Code Description Data Daphney rce(s) Supporting Document(s) SARS coronavirus 2 RNA [facility] This lab was ordered by [facility] [place] [facility] and reported by [employer]. ID Date Data Source [id number] 02/22/2020 05:08:25 PM EST Lab [facility] Name Value Range Interpretation Code Description Data Daphney rce(s) Supporting Document(s) SARS-COV-2 [facility] Lab [facility] Not DetectedReference range: Not Detecte d This nucleic acid amplification test was developed and its performance characteristics determined by [employer]. Nucleic acid amplification tests include PCR and [...] detected) result in this assay. Performed At: [facility] [address] [place], [place] [id number] Johnny Church PhD Ph:[phone] ID Date Data Source [id number] 02/02/2020 12:54:00 PM EST [facility] ([facility] [place]) Name Value Range Interpretation Code Description Data Daphney rce(s) Supporting Document(s) Protein [Presence] in Urine by Test strip Laboratory test result [facility] ([facility] [place]) Glucose [Presence] in Urine Laboratory test result [facility] ([facility]) Ua Nitrite Laboratory test result ME DENT ([facility]) Blood [Presence] in Urine by Visual Laboratory test result [facility] ([facility]) Ua Leuko Laboratory test result [facility] ([facility]) Color of Urine Laboratory test result [facility] ([facility]) Clarity of Urine Laboratory test result [facility] ([facility]) Ketones [Presence] in Urine by Test strip Laboratory test result [facility] ([facility]) Bilirubin.total [Presence] in Urine by Test strip Laboratory test res ult [facility] ([facility]) Ua Specific [place] 1.015 1.003-1.030 MEDE NT ([facility]) pH of Urine by Test strip 5.5 5.0-7.5 [facility] ([facility]) Urobilinogen [Mass/volume] in Urine by Test strip 0.2 E.U./dL 0.0-1.0 [facility] ([facility]) ID Date Data Source [id number] 02/02/2020 11:47:00 AM EST [facility] AssociatesEXAM: XRAY ABDOMEN KUBCLINICAL HISTORY: [...] rce(s) Supporting Document(s) ID Date Data Source [id number] 01/25/2020 02:17:00 PM EST [facility] ([facility]) Name Value Range Interpretation Code Description Data Daphney rce(s) Supporting Document(s) Sodium 145 [facility] (Cardiology [facility]) Calcium [Mass/volume] in Serum or Plasma 8.0 [facility] ([facility]) Chloride [Moles/volume] in Serum or Plasma 115 [facility] ([facility]) Carbon dioxide, total [Moles/volume] in Serum or Plasma 23 [facility] ([facility]) Potassium [Moles/volume] in Serum or Plasma 3.8 [facility] ([facility]) Creatinine 1.29 0.80-1.30 [facility] ([facility]) Blood Urea Nitrogen 17 7-24 [facility] (Ca rdiology [facility]) Glucose 192 70-99 [facility] ([facility]iology [facility]) Glomerular filtration rate/1.73 sq M.pre dicted [Volume Rate/Area] in Serum or Plasma by Creatinine-based formula (MDRD) 56 [facility] ([facility]) ID Date Data Source [id number] 01/25/2020 02:17:00 PM EST [facility] ([facility]i [facility]y [facility]) Name Value Range Interpretation Code Description Data [facility] rce(s) Supporting Document(s) Red Blood Count 3.88 4.60-6.10 [facility] (Cardio [facility]y [facility]) White Blood Count 10.1 4.1-11.0 [facility] (Card iology [facility]) Hemoglobin 12.6 13.5-18.0 [facility] ([facility]) Hematocrit 37.6 41.0-53.0 [facility] ([facility]) Platelets 192 150-450 [facility] ([facility]iology [facility]) ID Date Data Source [id number] 01/25/2020 06:18:00 AM EST [facility] ([facility] [place]) Name Value Range Interpretation Code Description Data Daphney rce(s) Supporting Document(s) Sodium [Moles/volume] in Serum or Plasma 145 mmol/L 136-145 [facility] ([facility]) Carbon dioxide, total [Moles/volume] in Serum or Plasma 23 mmol/L 22 -31 [facility] ([facility]) Potassium 3.8 mmol/L 3.6-5.2 [facility] ([facility]) Chloride [Moles/volume] in Serum or Plasma 115 mmol/L 100-108 [facility] ([facility]) Creatinine [Mass/volume] in Serum or Plasma 1.29 mg/dL 0.80-1.30 [facility] ([facility]) Urea nitrogen [Mass/volume] in Serum or Plasma 17 mg/dL 7-24 [facility] ([facility]) Anion gap 3 in Serum or Plasma 7 mmol/L 7-16 [facility] ([facility]) Urea nitrogen/Creatinine [Mass Ratio] in Serum or Plasma 13.2 RATIO 10.0-20.0 [facility] ([facility]) Calcium [Mass/volume] in Serum or Plasma 8.0 mg/dL 8.4-10.2 [facility] ([facility]) Glucose [Mass/volume] in Serum or Plasma 192 mg/dL 70-99 [facility] ([facility]) Glomerular filtration rate/1.73 sq M.pre dicted [Volume Rate/Area] in Serum or Plasma by Creatinine-based formula (MDRD) 56 ml/min/1.73m2 [facility] ([facility]) GFR Interpretation Laboratory test result [facility] ([facility]) <content></content>
<content> </con tent>
<content>NORMAL KIDNEY [...] formula (MDRD) Laboratory test result [facility] ([facility]) ID Date Data Source [id number] 01/25/2020 06:18:00 AM EST [facility] ([facility]) Name Value Range Interpretation Code Description Data Daphney rce(s) Supporting Document(s) Erythrocytes [#/volume] in Blood by Automated count 3.88 10*6/uL 4.60 -6.10 [facility] ([facility]) Leukocytes [#/volume] in Blood by Automated count 10.1 10*3/uL 4.1-11 .0 [facility] ([facility]) Hematocrit [Volume Fraction] of Blood by Automated count 37.6 % 4 1.0-53.0 [facility] ([facility]) Hemoglobin [Mass/volume] in Blood 12.6 g/dL 13.5-18.0 [facility] ([facility]) Erythrocyte mean corpuscular hemoglobin [Entitic mass] by Automated count 32.3 pg 27.0-32.0 [facility] ([facility]) Erythrocyte mean corpuscular hemoglobin concentration [Mass/volume] by Automated count 33.4 g/dL 32.0-36.0 [facility] ([facility]) Erythrocyte mean corpuscular volume [Entitic volume] by Auto mated count 96.8 fL 80.0-95.0 [facility] ([facility]) Platelets [#/volume] in Blood by Automated count 192 10*3/uL 150-450 [facility] ([facility]) Platelet mean volume [Entitic volume] in Blood by Automated count 8.8 fL 7.1-10.7 [facility]) Erythrocyte distribution width [Ratio] by Automated count 14.2 % 10.5-14.5 [facility] ([facility]) ID Date Data Source [id number] 01/25/2020 07:12:35 AM EST [facility] [place] [facility] [place] Name Value Range Interpretation Code Description Data Daphney rce(s) Supporting Document(s) SODIUM 145 mmol/L (136-145) [facility] [place] [facility] POTASSIUM 3.8 mmol/L (3.6-5.2) [facility] [place] [facility] CHLORIDE 115 mmol/L (100-108) H [facility] [place] [facility] CO2 23 mmol/L (22-31) [facility] [place] [facility] ANION GAP 7 mmol/L (7-16) [facility] [place] [facility] UREA NITROGEN 17 mg/dL (7-24) [facility] [place] [facility] CREATININE 1.29 mg/dL (0.80-1.30) [facility] [place] [facility] BUN/CREAT RATIO 13.2 RATIO (10.0-20.0) [facility] GLUCOSE 192 mg/dL (70-99) H [facility] [place] [facility] CALCIUM 8.0 mg/dL (8.4-10.2) L [facility] [place] [facility] GFR 56 ml/min/1.73m2 (>59) L [facility] [place] [facility] GFR ( AMER) >60 ml/min/1.73m2 (>59) [facility] [place] [facility] GFR INTERPRETATION [facility] --NORMAL KIDNEY FUNCTION OR MILD DISEASE - GFR >OR= 60CHRONIC KIDNEY DISEASE - GFR 15 - 59RENAL FAILURE - GFR <15 Est. GFR calculation based on the MDRDstudy equation, which assumes a steadystate for creatinine. Est. GFR should notbe used for medication dosing. ID Date Data Source [id number] 01/25/2020 06:57:56 AM EST [facility] [place] [facility] [place] Name Value Range Interpretation Code Description Data Daphney rce(s) Supporting Document(s) WBC 10.1 10*3/uL (4.1-11.0) [facility] [place] [facility] RBC 3.88 10*6/uL (4.60-6.10) L [facility] [place] [facility] [place] HGB 12.6 g/dL (13.5-18.0) L [facility] [place] [facility] [place] HCT 37.6 % (41.0-53.0) L [facility] [place] [facility] [place] MCV 96.8 fL (80.0-95.0) H [facility] [place] [facility] MCH 32.3 pg (27.0-32.0) H [facility] [place] [facility] [place] MCHC 33.4 g/dL (32.0-36.0) [facility] [place] [facility] [place] RDW 14.2 % (10.5-14.5) [facility] [place] [facility] PLT 192 10*3/uL (150-450) [facility] [place] [facility] [place] MPV 8.8 fL (7.1-10.7) [facility] [place] [facility] ID Date Data Source [id number] 01/24/2020 09:50:00 AM EDT [facility] [...] hydronephrosis. D7End of diagnostic report for accession: [id number] Interpreted: Juvenal Elmore MDTranscribed: 01/24/2020 09:38 AMSigned: 01/24/2020 09:50 AM Juvenal Elmore MD [facility] # [id number] BILL # [id number] Name Value Range Interpretation Code Description Data Daphney rce(s) Supporting Document(s) ID Date Data Source [id number] 01/24/2020 06:57:00 AM EDT [facility] ([facility]) Name Value Range Interpretation Code Description Data [place] rce(s) Supporting Document(s) Sodium [Moles/volume] in Serum or Plasma 141 mmol/L 136-145 [facility] ([facility]) Potassium 3.7 mmol/L 3.6-5.2 [facility] ([facility]) Chloride [Moles/volume] in Serum or Plasma 112 mmol/L 100-108 [facility] ([facility]) Carbon dioxide, total [Moles/volume] in Serum or Plasma 21 mmol/L 22 -31 [facility] ([facility]) Anion gap 3 in Serum or Plasma 8 mmol/L 7-16 [facility] ([facility]) Urea nitrogen [Mass/volume] in Serum or Plasma 19 mg/dL 7-24 [facility] ([facility]) Urea nitrogen/Creatinine [Mass Ratio] in Serum or Plasma 13.2 RATIO 10.0-20.0 [facility] ([facility]) Creatinine [Mass/volume] in Serum or Plasma 1.44 mg/dL 0.80-1.30 [facility] ([facility]) Glucose [Mass/volume] in Serum or Plasma 197 mg/dL 70-99 [facility] ([facility]) Glomerular filtration rate/1.73 sq M pre dicted among blacks [Volume Rate/Area] in Serum or Plasma by Creatinine-based formula (MDRD) Laboratory test result [facility] ([facility]) Calcium [Mass/volume] in Serum or Plasma 7.7 mg/dL 8.4-10.2 [facility] ([facility]) Glomerular filtration rate/1.73 sq M.pre dicted [Volume Rate/Area] in Serum or Plasma by Creatinine-based formula (MDRD) 50 ml/min/1.73m2 [facility] ([facility]) GFR Interpretation Laboratory test result [facility] ([facility]) <content></content>
<content> </con tent>
<content>NORMAL KIDNEY FUNCTION</content>
<content> OR MILD DISEASE - GFR >OR= 60</content>
<content>CHRONIC KIDNEY DISEASE - GFR 15 - 59</content>
<content>RENAL FAILURE - GFR <15</content>
<content> </content>< br/><content>Est. GFR calculation based on the MDRD</content>
<content>study equation, which assumes a steady</content>
<content>state for creatinine. Est. GFR should not</content>
<content>be used for medication dosing.</content>
<content></content> ID Date Data Source [id number] 01/24/2020 06:57:00 AM EDT [facility] ([facility]) Name Value Range Interpretation Code Description Data Daphney rce(s) Supporting Document(s) Erythrocytes [#/volume] in Blood by Automated count 4.04 10*6/uL 4.60 -6.10 [facility] ([facility]) Leukocytes [#/volume] in Blood by Automated count 11.8 10*3/uL 4.1-11 .0 [facility] ([facility]) Erythrocyte mean corpuscular volume [Entitic volume] by Auto mated count 97.1 fL 80.0-95.0 [facility] Hematocrit [Volume Fraction] of Blood by Automated count 39.2 % 4 1.0-53.0 [facility] ([facility]) Hemoglobin [Mass/volume] in Blood 12.9 g/dL 13.5-18.0 [facility] ([facility]) Erythrocyte distribution width [Ratio] by Automated count 14.1 % 10.5-14.5 [facility] ([facility]) Erythrocyte mean corpuscular hemoglobin concentration [Mass/volume] by Automated count 32.8 g/dL 32.0-36.0 [facility] ([facility]) Erythrocyte mean corpuscular hemoglobin [Entitic mass] by Automated count 31.8 pg 27.0-32.0 [facility] ([facility]) Platelet mean volume [Entitic volume] in Blood by Automated count 9.0 fL 7.1-10.7 [facility] ([facility]) Platelets [#/volume] in Blood by Automated count 152 10*3/uL 150-450 [facility] ([facility]) ID Date Data Source [id number] 01/24/2020 07:48:27 AM EDT [facility] [place] [facility] Name Value Range Interpretation Code Description Data Daphney rce(s) Supporting Document(s) SODIUM 141 mmol/L (136-145) [facility] [place] [facility] POTASSIUM 3.7 mmol/L (3.6-5.2) [facility] [place] [facility] CHLORIDE 112 mmol/L (100-108) H [facility] [place] [facility] CO2 21 mmol/L (22-31) L [facility] [place] [facility] [place] ANION GAP 8 mmol/L (7-16) [facility] [place] [facility] UREA NITROGEN 19 mg/dL (7-24) [facility] [place] [facility] [place] CREATININE 1.44 mg/dL (0.80-1.30) H [facility] [place] [facility] [place] BUN/CREAT RATIO 13.2 RATIO (10.0-20.0) [facility] GLUCOSE 197 mg/dL (70-99) H [facility] [place] [facility] [place] CALCIUM 7.7 mg/dL (8.4-10.2) L [facility] [place] [facility] [place] GFR 50 ml/min/1.73m2 (>59) L [facility] [place] [facility] [place] GFR ( AMER) >60 ml/min/1.73m2 (>59) [facility] [place] [facility] GFR INTERPRETATION [facility] --NORMAL KIDNEY FUNCTION OR MILD DISEASE - GFR >OR= 60CHRONIC KIDNEY DISEASE - GFR 15 - 59RENAL FAILURE - GFR <15 Est. GFR calculation based on the MDRDstudy equation, which assumes a steadystate for creatinine. Est. GFR should notbe used for medication dosing. ID Date Data Source [id number] 01/24/2020 07:37:38 AM EDT [facility] [place] [facility] [place] Name Value Range Interpretation Code Description Data Daphney rce(s) Supporting Document(s) WBC 11.8 10*3/uL (4.1-11.0) H [facility] [place] [facility] [place] RBC 4.04 10*6/uL (4.60-6.10) L [facility] [place] [facility] [place] HGB 12.9 g/dL (13.5-18.0) L [facility] [place] [facility] [place] HCT 39.2 % (41.0-53.0) L [facility] [place] [facility] [place] [facility] MCV 97.1 fL (80.0-95.0) H [facility] [place] [facility] [place] MCH 31.8 pg (27.0-32.0) [facility] [place] [facility] MCHC 32.8 g/dL (32.0-36.0) [facility] [place] [facility] RDW 14.1 % (10.5-14.5) [facility] [place] [facility] PLT 152 10*3/uL (150-450) [facility] [place] [facility] MPV 9.0 fL (7.1-10.7) [facility] [place] [facility] ID Date Data Source [id number] 01/23/2020 11:00:00 AM EDT [facility] ([facility]) Name Value Range Interpretation Code Description Data Daphney rce(s) Supporting Document(s) Leukocytes [#/volume] in Blood by Automated count 14.4 10*3/uL 4.1-11 .0 [facility] ([facility]) Erythrocytes [#/volume] in Blood by Automated count 3.93 10*6/uL 4.60 -6.10 [facility] ([facility]) Erythrocyte mean corpuscular volume [Entitic volume] by Auto mated count 96.3 fL 80.0-95.0 [facility] ([facility]) Hemoglobin [Mass/volume] in Blood 12.4 g/dL 13.5-18.0 [facility] ([facility]) Hematocrit [Volume Fraction] of Blood by Automated count 37.8 % 4 1.0-53.0 [facility] ([facility]) Erythrocyte mean corpuscular hemoglobin concentration [Mass/volume] by Automated count 32.8 g/dL 32.0-36.0 [facility] ([facility]) Erythrocyte mean corpuscular hemoglobin [Entitic mass] by Automated count 31.6 pg 27.0-32.0 [facility] ([facility]) Erythrocyte distribution width [Ratio] by Automated count 14.4 % 10.5-14.5 [facility] ([facility]) Platelets [#/volume] in Blood by Automated count 161 10*3/uL 150-450 [facility] ([facility]) Platelet mean volume [Entitic volume] in Blood by Automated count 9.1 fL 7.1-10.7 [facility] ([facility]) ID Date Data Source [id number] 01/23/2020 11:00:00 AM EDT [facility] ([facility]) Name Value Range Interpretation Code Description Data Daphney rce(s) Supporting Document(s) Sodium [Moles/volume] in Serum or Plasma 138 mmol/L 136-145 [facility] ([facility]) Potassium 3.6 mmol/L 3.6-5.2 [facility] ([facility]) Chloride [Moles/volume] in Serum or Plasma 106 mmol/L 100-108 [facility] ([facility]) Carbon dioxide, total [Moles/volume] in Serum or Plasma 25 mmol/L 22 -31 [facility] ([facility]) Anion gap 3 in Serum or Plasma 7 mmol/L 7-16 [facility] ([facility]) Creatinine [Mass/volume] in Serum or Plasma 1.56 mg/dL 0.80-1.30 [facility] ([facility]) Urea nitrogen [Mass/volume] in Serum or Plasma 20 mg/dL 7-24 [facility] ([facility]) Calcium [Mass/volume] in Serum or Plasma 7.7 mg/dL 8.4-10.2 [facility] ([facility]) Glucose [Mass/volume] in Serum or Plasma 142 mg/dL 70-99 [facility] ([facility]) Urea nitrogen/Creatinine [Mass Ratio] in Serum or Plasma 12.8 RATIO 10.0-20.0 [facility] ([facility]) GFR Interpretation Laboratory test result [facility] ([facility]) <content></content>
<content> </con tent>
<content>NORMAL KIDNEY [...] Creatinine-based formula (MDRD) 55 ml/min/1.73m2 [facility] ([facility]) Glomerular filtration rate/1.73 sq M.pre dicted [Volume Rate/Area] in Serum or Plasma by Creatinine-based formula (MDRD) 45 ml/min/1.73m2 [facility] ([facility]) ID Date Data Source [id number] 01/23/2020 11:00:00 AM EDT [facility] ([facility]) Name Value Range Interpretation Code Description Data [facility] rce(s) Supporting Document(s) Troponin I.cardiac [Mass/volume] in Serum or Plasma Laboratory test result [facility] ([facility] [employer] [facility]) Less than 0.05: Myocardial injury unlike ly Greater than or equal to 0.05: Highly suggestive of myocardial injury Correlation with rise and/or fall of serial troponins, clinical symptoms and ECG changes is necessary. ID Date Data Source [id number] 01/23/2020 12:02:00 PM EDT [facility] Name Value Range Interpretation Code Description Data Daphney rce(s) Supporting Document(s) TROPONIN I <0.05 ng/mL (<0.05) [facility] [place] Less than 0.05: Myocardial injury unlike lyGreater than or equal to 0.05: Highly suggestive of myocardial injuryCorrelation with rise and/or fall ofserial troponins, clinical symptomsand ECG changes is necessary. ID Date Data Source [id number] 01/23/2020 12:02:00 PM EDT [facility] Name Value Range Interpretation Code Description Data Daphney rce(s) Supporting Document(s) SODIUM 138 mmol/L (136-145) [facility] POTASSIUM 3.6 mmol/L (3.6-5.2) [facility] CHLORIDE 106 mmol/L (100-108) [facility] CO2 25 mmol/L (22-31) [facility] ANION GAP 7 mmol/L (7-16) [facility] UREA NITROGEN 20 mg/dL (7-24) [facility] CREATININE 1.56 mg/dL (0.80-1.30) H [facility] BUN/CREAT RATIO 12.8 RATIO (10.0-20.0) [facility] GLUCOSE 142 mg/dL (70-99) H [facility] CALCIUM 7.7 mg/dL (8.4-10.2) L [facility] GFR 45 ml/min/1.73m2 (>59) L [facility] GFR ([facility]) 55 ml/min/1.73m2 (>59) L [facility] GFR INTERPRETATION [facility] --NORMAL KIDNEY FUNCTION OR MILD DISEASE - GFR >OR= 60CHRONIC KIDNEY DISEASE - GFR 15 - 59RENAL FAILURE - GFR <15 Est. GFR calculation based on the MDRDstudy equation, which assumes a steadystate for creatinine. Est. GFR should notbe used for medication dosing. ID Date Data Source [id number] 01/23/2020 11:38:24 AM EDT [facility] Name Value Range Interpretation Code Description Data Daphney rce(s) Supporting Document(s) WBC 14.4 10*3/uL (4.1-11.0) H [facility] RBC 3.93 10*6/uL (4.60-6.10) L [facility] HGB 12.4 g/dL (13.5-18.0) L [facility] HCT 37.8 % (41.0-53.0) L [facility] MCV 96.3 fL (80.0-95.0) H [facility] MCH 31.6 pg (27.0-32.0) [facility] MCHC 32.8 g/dL (32.0-36.0) [facility] RDW 14.4 % (10.5-14.5) [facility] PLT 161 10*3/uL (150-450) [facility] MPV 9.1 fL (7.1-10.7) [facility] ID Date Data Source [id number] 01/23/2020 02:30:56 AM EDT [facility] Name Value Range Interpretation Code Description Data Daphney rce(s) Supporting Document(s) TROPONIN I <0.05 ng/mL (<0.05) [facility] [place] Less than 0.05: Myocardial injury unlike lyGreater than or equal to 0.05: Highly suggestive of myocardial injuryCorrelation with rise and/or fall ofserial troponins, clinical symptomsand ECG changes is necessary. ID Date Data Source [id number] 01/22/2020 07:55:00 PM EDT [facility] DATE OF EXAM: 01/22/2020EXAM: Chest 2V [...] elevation. X5End of diagnostic report for accession: [id number] Interpreted: Marisel Davila MDTranscribed: 01/22/2020 07:52 PMSigned: 01/22/2020 07:55 PM Marisel Davila MD [facility] # [id number] [facility] # [id number] Name Value Range Interpretation Code Description Data Daphney rce(s) Supporting Document(s) ID Date Data Source [id number] 01/22/2020 06:58:33 PM EDT [facility] Name Value Range Interpretation Code Description Data Daphney rce(s) Supporting Document(s) TROPONIN I <0.05 ng/mL (<0.05) [facility] [place] Less than 0.05: Myocardial injury unlike lyGreater than or equal to 0.05: Highly suggestive of myocardial injuryCorrelation with rise and/or fall ofserial troponins, clinical symptomsand ECG changes is necessary. ID Date Data Source [id number] 01/22/2020 06:58:33 PM EDT [facility] Name Value Range Interpretation Code Description Data Daphney rce(s) Supporting Document(s) SODIUM 138 mmol/L (136-145) [facility] POTASSIUM 3.9 mmol/L (3.6-5.2) [facility] CHLORIDE 106 mmol/L (100-108) [facility] CO2 24 mmol/L (22-31) [facility] ANION GAP 8 mmol/L (7-16) [facility] UREA NITROGEN 16 mg/dL (7-24) [facility] CREATININE 1.60 mg/dL (0.80-1.30) H [facility] BUN/CREAT RATIO 10.0 RATIO (10.0-20.0) [facility] GLUCOSE 156 mg/dL (70-99) H [facility] CALCIUM 8.6 mg/dL (8.4-10.2) [facility] GFR 44 ml/min/1.73m2 (>59) L [facility] GFR ( [facility]) 53 ml/min/1.73m2 (>59) L [facility] GFR INTERPRETATION [facility] --NORMAL KIDNEY FUNCTION OR MILD DISEASE - GFR >OR= 60CHRONIC KIDNEY DISEASE - GFR 15 - 59RENAL FAILURE - GFR <15 Est. GFR calculation based on the MDRDstudy equation, which assumes a steadystate for creatinine. Est. GFR should notbe used for medication dosing. ID Date Data Source [id number] 01/22/2020 06:37:48 PM EDT [facility] Name Value Range Interpretation Code Description Data Daphney [facility](s) Supporting Document(s) WBC 16.0 10*3/uL (4.1-11.0) H [facility] RBC 4.67 10*6/uL (4.60-6.10) [facility] HGB 14.7 g/dL (13.5-18.0) [facility] HCT 45.2 % (41.0-53.0) [facility] MCV 96.7 fL (80.0-95.0) H [facility] MCH 31.4 pg (27.0-32.0) [facility] MCHC 32.5 g/dL (32.0-36.0) [facility] RDW 14.5 % (10.5-14.5) [facility] PLT 163 10*3/uL (150-450) [facility] MPV 8.2 fL (7.1-10.7) [facility] ID Date Data Source [id number] 01/23/2020 07:46:00 PM EDT [facility] [address] [place], [place] [address]PATIENT NAME: JOSE VILLATORODATE OF : 1955REPORT: CONSULTATIONPATIENT NUMBER: [id number] STATUS: IPMEDICAL RECORD NUMBER: [id number]: [facility] HOSPITALIST CONSULTATIONDATE OF CONSULTATION: 01/22/2020CONSULT [...] four hours PRNPRN Reason: painExtended Instructions: istop [id number] MaxDailyDose- 6Medication Status: activeomeprazole 40 mg capsule,delayed [...] also request a chest x-ray. Will request trousseau consultant covering hospitalist to follow overnight work up.Thank you for this consult. Hospitalist team will follow with you.DICTATED BY: JOSSELIN Hayictated: 01/22/2020 18:00DT: 01/22/2020 18:09Job #: [id number]: Quinton Pride MDNOTE: [facility] computer generated reports are notconfirmed or authenticated unless they are signed by the providerElectronically Authenticated and Edited by:ADELINA ALCARAZ MD On 01/23/2020 07:46 PM EDT Name Value Range Interpretation Code Description Data Daphney rce(s) Supporting Document(s) ID Date Data Source [id number] 01/22/2020 05:32:39 PM EDT [facility] Name Value Range Interpretation Code Description Data Daphney rce(s) Supporting Document(s) MUSE EKG PDF encoded [facility] LHHSIm3xQeOIKwZyn0FmDxAcBWHsZA9zrwy0Q2Y3iPGkQ3NwhNNmk8ilJ0ZfK7KyXEQbMIUAEF5YuEDu jb2 [file] a2HP5LT6+j2I1ItUMg6ez5J/T/0td+NaXSP/4d5++Nguyễn+JwP8jcg9a6i5Aj2/vznNcB1qzUO+t3zXkY+ A7+V5r44Pv/MVj1P04HRQ0t+estF/z55L2v3dSgd+688tK+9C3w3LqlQX2E/vp26yqdf+SSn/0h7S6r9 Dtcbhxa4mj4Hc5A/oqvtO9x8y/DKSbn/gyPvrgd521 hZVks09y9+WtPy9v+/AmwZoG2ktDiKqZ8tpz8P7+4/m2byzH+JxEuy9ue2x4B6muW3mrsA9fy8uSa/Ld sl/dPGG/VpZiHgrjVvdGw3L+G/VN/eqlwXfwUV/VzqgiF0jhapu14KmKPU2frN3u6E8AzH5B+grcB5V4 Sjct9AoT9k8PDa8+XWm/voq8Kq4w0dfkSfiLroeK+b jfJ7ul6tES+1V9G+ofks1Fx1o436K+PZh/zwRfwO/30gg9o2AUxmKnAM+RD/AF5RndTPhmb+pXLw1+IP 4ocZz5n7m++Gg12RfZQ205iLY5aIR8DuJmbg22g0xHPk/xVNAcbWcDe8Ai+5T3ou6LA+jQWgm2BT2o6r I1Wx7jb8L542zcWjE/cfkQb0wxC/3miyJfvR03JTK/ aul1t2iAoOq398dt7KwO+0OR3k31gmpLwqQPykNGO267dQmA0Pvzv0L7D3Ivqlf1CfMoUsUgYBPplVfx BgtssgO0o1F9mE3GZG/J39oaxZw7QiGl7il81o3aa+2xutr+wYylm0o6mTehF+ey8Cn3HHzkv3aKnCLj qs0fkMyNp+M7A+VBftWnQ550Qsr5+ld1gI/fV3s/VF XAF/DhToai25Ga0pC8+tjU5TyiGwnpo9inRuU658vbu12id2u5VcI6E1F4vY+8aupHr0FhIG0TpAEu8O Sr70YBcr0N6/oV93300z3ng2wR9wg9Xvr3exL6+Bv8AD/AP+Wgsm32AIBjd5Z4IkJF7+x0fL66xpx+jv o6+m/fR933N188RfT3Gvp63cqK4H32cLr/KGIkZC4d T844Ylio7y842pp0u+VoK0bZlv+YOKFpb3g0EkhLsf6JkF4u6ev8mh/rhew7P/3f6ub5KkCy9dqkvFof bytz6n0R1Ym91x9kr+7Uxwkdu4tdv9tzGe+gptN9U306oMP/0zqwSLv3jGd7g+V2mh5BMrxAJkx5oN3H A/UNjM+mU7OmtB+p4npy2Gbh/wFDW22kZ1mfomw8tl WBRq/81iW5H8+v9/C8jL1V86MF/GG3hU8TQ+x9DsxEwfCC5/cY+Gpd6qd8AZs+qO+MolwYnb5B9ut9/M Y91F/94p7p/8Q8wmDd7P/SAr7g+YZ1tv9hc/xli7hn+av/3vB6co9mw/pdu25q3rv+L73B3+AH+IF8Ds g4zx2ePb396q2bN+nv49xK0WdHMq/bwKR8Ki+9J/fL TduQ9ha3+57b/6DAddXr8i91Qg/W7/rBaz1t90n4Bb7wI/gH/SG2FREz4GR+YYD75XXzTv9me+45/bKN 2FU4tiNbm64X6T+lb/hUs5EZRuSmwsRg/GvfqHdvfVfmf+tb6QA/wD+jv+I066m20VgAx4L/c18J7h07 q5LDtV+XtDzgx8o2rKMI+4Urkx0SdzxgUug85n0t2F cv/urLLQ3MJhnRPoON4q/2ygjrqo2w+tpF3eIm606v808/ay6A9v6Q8yA2Gf7VsOowANnG83O62U04oS E0gh24A5u+gI/xynp/wdJ+VYwKB7x/yrqn/mpieIh93686Pm1mkKrZL1IDttVw3Em5L/lCthIk2J/wez 4y7/jXDE0a3E0J9azjXM/AX+Ti9IQrY12p8JVY77Tz F2825wJwSt+Fv85RPQZ/4Pd+t+7m68J7tY/z87hD6lS+4PkF/gK/811X5vtZkcNoEvhjG3Y4Z5PWt/JK W6cD/X5vs8Qe5d7lonh4dgH/TmqfGDg6Uj0Nj6Ee1Md14o6Psh2z1cqLXu7/IVN1rd01Sn5+k1B5CMe+ q9La6YlkGuNMvid1U1U8miV/Rrrr8KD65U6zo+z0es ZCdf37te+w7Wz2iK3xN1zx0mt9Gixoknd+B/U9qO/p+vro9a+n/eq2PR/etg8Z6Xm41hZ1n0/eL/Ox8L win+6/Prr/+dVfREsBs1O/wQ/wA/zzjcM+2t7us/VJT/3q6oGe+tVLWz/T+qKMeb115lssi/uvY3/QsT /os8+eXd30N103l97cs/GA8yo6cV7QR8V/wG/7s+N8 u+K1bBwgGf8zG0c2ADc/6y+Xtk+11Q5sL9/f8P+KwvPN0vvSeXI/DsXx5qETkLyrJbv/zlxCqqzk/tuc Fwnr+PrJhkTBWOnR8CCw6/wZk24f5V30jqCeaF4S5Za/VfrA+WI8SykL88K+G9/dKiOM8Zgu6MXb6nkR j7q2Su4K6531sp3n+CufHa/mNN7SohyqRc1Mg2G+6j k0DwLcGR+qC86jcR7ukEjt1QUpojuukY/fAHP6WwP5c6lxRY6CadLQ+ZPepr132uclr/0Yplm5gWP/5Q vfb/lXeXy+yI3om1U3A7/+ucG7ao2kei3iO/8qsQ6//tU7/n2/5flC4qKgela/knwG6/mCW8+PvOLb83 z75mVe/lVe2/5qb44zi/X/163jkbzir+rYXmyJX//q O7YXT+KIv3LH+3X0Z+94Bvf+H3n6V/nayG7CJzhIigZ1kQFKhdeee+bp3200B+Q40i4YtVwHEqhW/yOs HcdVG352/BHad5UOLp8qv1VnspayED4RC/hXDv/B2M730ii0U25pZ/+qeg40f9+A71Bg19/gZX4v69E8 MY8Ft2TbVi9/zbSx4oV+swO/5yg6ejJirL55/dej13 8d+EYqgt5Z1010wiSF1lJLls223W75jb+On54f+ZGBY+jx/z0db+ZnfvNKP/PDVfz0/hQ/vT/FT+Oxfn p/ymVm//Bwce6KXRt8eyK88vgs13buLk939B2327Lu0lI2102ZJ108hb3C5SO6Ot2ElkZ4ddYSyupoC/ ixW6wr6YpoLIqnH4247D4x4IDjqbhK+PJ1vd6R661+ GU3tkC6sK01e9NT16BZM/OodQ7+g7/avgkiUR2dSfj6Byhs3/cYLl0we4cczNwndFvd0+MfWomk3ze+y z74URdCQp2W/ojA850aC67uBYstBKn8NQ9Jq4P/o23/eWB/cWB/cWB/c0bRs8Di44m1Lo/Z66E7/6h1/ /u1O/yr12D+4Ed++Z/+R4nz9ns26UDIfk3Vd2/7QPX m26bUixuqoe3a1+Hfop826TkQa50+UEyg/hY51v1izhYSf8Hc3Ty3v0KB2ve3Get/39+m67316V2cv5V ehvsugN+s7aS1C5L7m8R/oA+ejvqv/v3u1/0ha38j07ZczW00/tic7sA54sh3K89w1r2aOXtri62ma3D v/u63/W1jmd4pO0/1nK3v0Tty2Q/hm4o9p0bo6QfCS tw/oBXr0Z/hXG/7Vhn+1He/Oz290C20d2/063i/8qw3/avvG8/A98DgG5wS75TpV5207pdM8v88h1q40 fje+343vF/7Vhn+1N+q7Ud+N+k304616a/F+Q26swsoz898P2mrid/bu9d+d/jB64qZjM334YfqCn8Kk qZAPfEEZqkP0K+zv3Dp1g9q9l6P74Vp92P96Z8f7G3 gK77BnhDhK1+3TeM7G+uA+GK8O/rvOmG65L0/qu9KH72iWJ/+jg//RMZzvuK/4nLt88Vw7cm/YiG/fp+ L00xl0oRM+Fdg/TECfMdEXanBjlA8aa/rGrbx6YFI+KhB/JqMdm4kXJ0uBgU8Yfx/H6Pl+jJ7vR+JXM4 87fiMy/gnXmkn7lxYHQKoaS5s2cOvDgzZG3/2Q7s+B +AwWJy7L+Awvz13kx63hYFnFj7G3m2jI8gtoh+ZA57h1eZ9x4eDbb5RXwUBf6Qw7D/oJ/YK+481CG9+I wq/yyDYdUk1GcOYS81CrJN1WZv2F5E6Msq4aZn3tpCw/Xbmbf7WIk8+/NDK+/eIGkeuDea+5UrfSMPq4 xyVO0b7JUdqM5ZMKxFjvbb5+xz+29rTtl8FZ3ud/zh eyjnN/+EnM+NLjicrWspl4o2+859yyRx8g3S/d+Uhc/bn65uA3zxVtq/V+nEj/LmeymgemoM0E/KtY7W /K1mbOPXl35/sRQ2Y0zwHo4vfPub31gK5rkS9uHp/PYT0+q5T1uv6NF2njoVZDjx4ykOR/G9qOy9Dt0V vKMdy3/pbkm63jXUg+KwhMx8B2sDaA/biMS9b1XtR4 jM/e6wuB+PbA+mBgfTC8/0fhC+rnjJ9333W01Ou+Mrzj+cM3zg+hQ9Go2Kf+TtdCU8Gc3Mn5PUmwS5D6 /Kx14iiD1Hfb4ZmtlwVDe30sg/OG4Gjzz3wpeTMUrZ3swsaksG32j+z18cGfs93/du+xx755uMMCJ++O 6Pl+oQE1GHPyW2P2S93c2LS2j3poUWL5H4XGwU9Got PeoXfoG9+I3V23Xb4cQgHmLIhNycy2zMmqxeVyOE/Qo2gXQP/qO4Z+6xSrtQAvc7lBo/VPNd16h5K7b0 PiV9n+iV+9Y+gD+s4sQXoioK9/7/8huoW9p9t5oiApEyytHS8shY4+/fZU/NW8x/P7r53R+YKOmU6kpW +e9sWpIj9PzdYYK/Qb+vYnz+jx6oyA/kDf+MaRXt8/ 0t/vkf5+j7T/bCJxpilxAJR5M9CqNG4S3VDPOkCG8Pccy8e93UB60FS38RG01FV98Lb/Tt1Z1Xm7A5+i ilFrbvS7gyP8V+23mFF00iD+/QC/OsCvjqK+csrz7ikhc8tnpaMfCLfS3tU+uW55Pwq7Y+S/MwOiF7gk 9IrzJ/QT+pI2fh7wtqW4AlOsay0plo0shr7x/9WZge cPlN/z/BZmjlwh70GJEvCC7I9iPMJ9e8ShlhM26ekG4mqcd19gSIdll4s5/Vcoy01rb7XdpoiozRFsR/ 43Fsa3WwcXv9xmn/v6iw0pqMU4S+CVk8gn9/0px3o+cHAmYgT9Xteqn9dbJE3hHG7jhV31hoYD+7WAHt +vob7e/yODqzKaTyd36/ePK/QKffuTB/sHD/YPHuwf NE9Vx33L+mL/4MH+fAW1veB/6sC/Ooi/Ooi/Ooi/Ooi/Orv3O5+A7GmoqH0to4N6cxu0M3t0/tBT/lUe G/NNdb73QtxzAR/6V+8Y+oA+6XpSs4wbvTUdJ5xkIQ/uTGhb6UH/4uC01YR+qGLzj6Vy/RM9/q6i2Sx9 5vv9z0B40Dh9c4u/Fzbe1teOtt84XS6N62Um7qj2uc 6Gl5EjbnKlBl19i+f75/R8/5wF/YK+8+ec0/r4cxv633yBY30jR+/4xzsQmjd92sQg8+C+Xd8/d6MB2Z 5IP0AnP+Er60/Q7yY/4Zs1/de74bcR/AkGYdGyaLGvKj/ha8M/wfls/bb/yF0HqvPdIKcR3bkS6nGrEA M3AqaC2KO7i7+g30LsT/tgRW6ACtdS76mbKeWfUFAh VQG/z5lVL0vrg4vuupsNO3FoSFKKM8uMLRFw/D7xTE/qJ4544WQdI5JmZoH47gmZnn55H2c4uKlbCXgG qR7el4ISntOM71s3tTs7MMEmZ+whJn8C+6QF0A9tFBu/4RsJ/qUMGR9ADbpYiw3z8YuNowRgPldd5jN+ jU19VnWqBrevf6N/cf5Fx3ZzmPzTxzNjWotqjQUubF wWJrSO1HzBj6Pm3yKWGknIQgqVrp2eR3RHDQzgaU8QxNHZBGGWPntNBubWeS9r6X6HU1S6VgOpmkJXGD 7ltLR7/hPQewGQ/HZ0oGRvuAYQfHG601iIg4R9o2V6SwTi1OEOP7Es8cpOjwgBk1oq6/cPNOh59w/7P8 G/ie9P+TuEclTMiN0owCT/NjUaO4JTx7TLJAoFUKSw zRAaC3lqE9bk+A4WBiWkNg+OZEwhsktnPQ3zImO2Xm2I3fF3W1sRK23waWZTAIVxzjMLZ+X3U6IDcS7/ kRauEZuAewzKDyof9I5LpplZKgJT5foYalN99y82bb9BKFnd9mgF+6eDU8N8op7po8CYNfRadsHUM3jS uBumKP7E4z7K1MlC8kHRn10/AT0++C1gp+Mva/igQI wU1jRkrkxsXUQN4fxkwfKK/ALipbfWvKM8XGuQN2hKtQi+Fw7/C4f/BQTn/wT8Fw7/O6ybjT6O/8JBSt tdJGzuPRYdbt14XeN2/pKlCrt1RY8RK2JphkD6niXx418uFBxEO4LmAiHVcFDzvHLP0shFuZ5i1BvouU 3wqQ/cieeHqDyRVeUmb68OeHGOTlUWoeqcjvGXtQV5 SGPWW7Pb/tlYn1SfvJKuTRedo4NsTcYtY0G9TddyBR4AYAHpkD0axX+O8TUvWv4apxr5WMzfsu9g9NCU /cpM/cpU/tax assessor/ZzewaREM7Ie7xhIseB8TiyVqsRenT7jeetM+oyScm5xkfxbHmMSxW5p9Xsa+0+ghW0w [file] [id number] ID Date Data Source [id number] 01/21/2020 11:10:00 AM EDT [facility] ([facility] Name Value Range Interpretation Code Description Data Daphney rce(s) Supporting Document(s) Potassium 4.0 mmol/L 3.6-5.2 [facility] Sodium [Moles/volume] in Serum or Plasma 142 mmol/L 136-145 [facility] ([facility]) Chloride [Moles/volume] in Serum or Plasma 110 mmol/L 100-108 [facility] ([facility]) Carbon dioxide, total [Moles/volume] in Serum or Plasma 26 mmol/L 22 -31 [facility] ([facility]) Anion gap 3 in Serum or Plasma 6 mmol/L 7-16 [facility] ([facility]) Urea nitrogen/Creatinine [Mass Ratio] in Serum or Plasma 16.2 RATIO 10.0-20.0 [facility] ([facility]) Creatinine [Mass/volume] in Serum or Plasma 1.36 mg/dL 0.80-1.30 [facility] ([facility]) Urea nitrogen [Mass/volume] in Serum or Plasma 22 mg/dL 7-24 [facility] ([facility]) Calcium [Mass/volume] in Serum or Plasma 7.6 mg/dL 8.4-10.2 [facility] ([facility]) Glomerular filtration rate/1.73 sq M.pre dicted [Volume Rate/Area] in Serum or Plasma by Creatinine-based formula (MDRD) 53 ml/min/1.73m2 [facility] ([facility]) Glucose [Mass/volume] in Serum or Plasma 127 mg/dL 70-99 [facility] ([facility]) Glomerular filtration rate/1.73 sq M pre dicted among blacks [Volume Rate/Area] in Serum or Plasma by Creatinine-based formula (MDRD) Laboratory test result [facility] ([facility]) GFR Interpretation Laboratory test result [facility] ([facility] [employer]) <content></content>
<content> </con tent>
<content>NORMAL KIDNEY FUNCTION</content>
<content> OR MILD DISEASE - GFR >OR= 60</content>
<content>CHRONIC KIDNEY DISEASE - GFR 15 - 59</content>
<content>RENAL FAILURE - GFR <15</content>
<content> </content>< br/><content>Est. GFR calculation based on the MDRD</content>
<content>study equation, which assumes a steady</content>
<content>state for creatinine. Est. GFR should not</content>
<content>be used for medication dosing.</content>
<content></content> ID Date Data Source [id number] 01/21/2020 11:10:00 AM EDT [facility] ([facility]) Name Value Range Interpretation Code Description Data Daphney rce(s) Supporting Document(s) Leukocytes [#/volume] in Blood by Automated count 10.5 10*3/uL 4.1-11 .0 [facility] ([facility]) Erythrocytes [#/volume] in Blood by Automated count 4.04 10*6/uL 4.60 -6.10 [facility] ([facility]) Hemoglobin [Mass/volume] in Blood 12.9 g/dL 13.5-18.0 [facility] ([facility]) Hematocrit [Volume Fraction] of Blood by Automated count 39.0 % 4 1.0-53.0 [facility] ([facility]) Erythrocyte mean corpuscular volume [Entitic volume] by Auto mated count 96.6 fL 80.0-95.0 [facility] Erythrocyte mean corpuscular hemoglobin concentration [Mass/volume] by Automated count 33.0 g/dL 32.0-36.0 [facility] ([facility]) Erythrocyte distribution width [Ratio] by Automated count 14.3 % 10.5-14.5 [facility] ([facility]) Erythrocyte mean corpuscular hemoglobin [Entitic mass] by Automated count 31.9 pg 27.0-32.0 [facility] ([facility]) Platelets [#/volume] in Blood by Automated count 146 10*3/uL 150-450 [facility] ([facility]) Platelet mean volume [Entitic volume] in Blood by Automated count 8.9 fL 7.1-10.7 [facility] [place] ID Date Data Source [id number] 01/21/2020 11:59:34 AM EDT [facility] Name Value Range Interpretation Code Description Data Daphney rce(s) Supporting Document(s) SODIUM 142 mmol/L (136-145) [facility] POTASSIUM 4.0 mmol/L (3.6-5.2) [facility] CHLORIDE 110 mmol/L (100-108) H [facility] CO2 26 mmol/L (22-31) [facility] ANION GAP 6 mmol/L (7-16) L [facility] UREA NITROGEN 22 mg/dL (7-24) [facility] CREATININE 1.36 mg/dL (0.80-1.30) H [facility] BUN/CREAT RATIO 16.2 RATIO (10.0-20.0) [facility] GLUCOSE 127 mg/dL (70-99) H [facility] CALCIUM 7.6 mg/dL (8.4-10.2) L [facility] GFR 53 ml/min/1.73m2 (>59) L [facility] GFR ( AMER) >60 ml/min/1.73m2 (>59) [facility] GFR INTERPRETATION [facility] --NORMAL KIDNEY FUNCTION OR MILD DISEASE - GFR >OR= 60CHRONIC KIDNEY DISEASE - GFR 15 - 59RENAL FAILURE - GFR <15 Est. GFR calculation based on the MDRDstudy equation, which assumes a steadystate for creatinine. Est. GFR should notbe used for medication dosing. ID Date Data Source [id number] 01/21/2020 11:31:38 AM EDT [facility] Name Value Range Interpretation Code Description Data Daphney rce(s) Supporting Document(s) WBC 10.5 10*3/uL (4.1-11.0) [facility] RBC 4.04 10*6/uL (4.60-6.10) L [facility] HGB 12.9 g/dL (13.5-18.0) L [facility] HCT 39.0 % (41.0-53.0) L [facility] MCV 96.6 fL (80.0-95.0) H [facility] MCH 31.9 pg (27.0-32.0) [facility] MCHC 33.0 g/dL (32.0-36.0) [facility] RDW 14.3 % (10.5-14.5) [facility] PLT 146 10*3/uL (150-450) L [facility] MPV 8.9 fL (7.1-10.7) [facility] ID Date Data Source [id number] 01/21/2020 05:03:00 PM EDT [facility] DATE OF EXAM: 01/20/2020RETROGRADE PYELO [...] indicated. D7End of diagnostic report for accession: [id number] Interpreted: Juvenal Elmore MDTranscribed: 01/21/2020 05:02 PMSigned: 01/21/2020 05:03 PM Juvenal Elmore MD -------- [facility] ACC # [id number] [facility] # [id number] Name Value Range Interpretation Code Description Data Daphney rce(s) Supporting Document(s) ID Date Data Source [id number] 01/21/2020 06:59:00 AM EDT [place] [address] [address] [facility] [place], [place] [address]KWITDRW NAME: JOSE VILLATORODATE OF : 1955REPORT: OPERATIONPATIENT NUMBER: [id number] STATUS: OF ADMISSION: 01/20/2020DATE OF DISCHARGE:ROOM:DATE OF PROCEDURE: 01/20/2020PREOPERATIVE DIAGNOSIS: Right ureteral stone.POSTOPERATIVE DIAGNOSIS: Right ureteral stone.PROCEDURES PERFORMED:1. Rigid cystourethroscopy with right stent placement.2. Professional interpretation of radiologic images.SURGEON: FRAN Aguilera HISTORY AND REASON FOR PROCEDURE: This is a very -zhvc-rve gentleman with two separate right mid ureteral [...] prepped and drapedin standard sterile fashion. A 22-Iranian 30-degree rigid cystoscope wasinserted under direct vision [...] and the ureteral catheter wasremoved and a 6-Iranian 26 cm double-J stent was placed in [...] double-Jstent overlying the right renal pelvis.DRAINS: Right 6-Iranian 26-cm double-J stent with no string attached.COMPLICATIONS: None.ESTIMATED BLOOD LOSS: Minimal.SPECIMENS: None.DICTATED BY: JOSSELIN Aguileraictated: 01/20/2020 19:36DT: 01/20/2020 19:41Job #: [id number]: [facility] computer generated reports are not confirmed orauthenticated unless they are signed by the providerElectronically Authenticated by:RAJI WYNNE MD On 01/21/2020 06:59 AM EDT Name Value Range Interpretation Code Description Data Daphney rce(s) Supporting Document(s) ID Date Data Source [id number] 01/20/2020 01:20:00 PM EDT [facility] [place] Name Value Range Interpretation Code Description Data Daphney rce(s) Supporting Document(s) Leukocytes [#/volume] in Blood by Automated count 15.5 10*3/uL 4.1-11 .0 [facility] ([facility]) Hemoglobin [Mass/volume] in Blood 14.3 g/dL 13.5-18.0 [facility] ([facility]) Erythrocytes [#/volume] in Blood by Automated count 4.47 10*6/uL 4.60 -6.10 [facility] ([facility]) Erythrocyte mean corpuscular volume [Entitic volume] by Auto mated count 97.1 fL 80.0-95.0 [facility]) Hematocrit [Volume Fraction] of Blood by Automated count 43.4 % 4 1.0-53.0 [facility] ([facility]) Erythrocyte mean corpuscular hemoglobin [Entitic mass] by Automated count 32.0 pg 27.0-32.0 [facility] ([facility]) Platelets [#/volume] in Blood by Automated count 172 10*3/uL 150-450 [facility] ([facility]) Erythrocyte distribution width [Ratio] by Automated count 14.5 % 10.5-14.5 [facility] ([facility]) Erythrocyte mean corpuscular hemoglobin concentration [Mass/volume] by Automated count 32.9 g/dL 32.0-36.0 [facility] ([facility]) Platelet mean volume [Entitic volume] in Blood by Automated count 9.3 fL 7.1-10.7 [facility]) ID Date Data Source [id number] 01/20/2020 01:20:00 PM EDT [facility] ([facility]) Name Value Range Interpretation Code Description Data Daphney rce(s) Supporting Document(s) Sodium [Moles/volume] in Serum or Plasma 142 mmol/L 136-145 [facility] ([facility]) Carbon dioxide, total [Moles/volume] in Serum or Plasma 26 mmol/L 22 -31 [facility] ([facility]) Potassium 4.7 mmol/L 3.6-5.2 [facility] Chloride [Moles/volume] in Serum or Plasma 108 mmol/L 100-108 [facility] ([facility]) Creatinine [Mass/volume] in Serum or Plasma 1.50 mg/dL 0.80-1.30 [facility] ([facility]) Anion gap 3 in Serum or Plasma 8 mmol/L 7-16 [facility] ([facility]) Urea nitrogen [Mass/volume] in Serum or Plasma 25 mg/dL 7-24 [facility] ([facility]) Urea nitrogen/Creatinine [Mass Ratio] in Serum or Plasma 16.7 RATIO 10.0-20.0 [facility] ([facility]) Glucose [Mass/volume] in Serum or Plasma 147 mg/dL 70-99 [facility] ([facility] [facility]) Glomerular filtration rate/1.73 sq M pre dicted among blacks [Volume Rate/Area] in Serum or Plasma by Creatinine-based formula (MDRD) 57 ml/min/1.73m2 [facility] ([facility]) Glomerular filtration rate/1.73 sq M.pre dicted [Volume Rate/Area] in Serum or Plasma by Creatinine-based formula (MDRD) 47 ml/min/1.73m2 [facility] ([facility]) Calcium [Mass/volume] in Serum or Plasma 8.6 mg/dL 8.4-10.2 [facility] ([facility]) GFR Interpretation Laboratory test result [facility] ([facility] [employer] [facility]) <content></content>
<content> </con tent>
<content>NORMAL KIDNEY FUNCTION</content>
<content> OR MILD DISEASE - GFR >OR= 60</content>
<content>CHRONIC KIDNEY DISEASE - GFR 15 - 59</content>
<content>RENAL FAILURE - GFR <15</content>
<content> </content>< br/><content>Est. GFR calculation based on the MDRD</content>
<content>study equation, which assumes a steady</content>
<content>state for creatinine. Est. GFR should not</content>
<content>be used for medication dosing.</content>
<content></content> ID Date Data Source [id number] 01/20/2020 02:07:19 PM EDT [facility] Name Value Range Interpretation Code Description Data Daphney rce(s) Supporting Document(s) SODIUM 142 mmol/L (136-145) [facility] POTASSIUM 4.7 mmol/L (3.6-5.2) [facility] CHLORIDE 108 mmol/L (100-108) [facility] CO2 26 mmol/L (22-31) [facility] ANION GAP 8 mmol/L (7-16) [facility] UREA NITROGEN 25 mg/dL (7-24) H [facility] CREATININE 1.50 mg/dL (0.80-1.30) H [facility] BUN/CREAT RATIO 16.7 RATIO (10.0-20.0) [facility] GLUCOSE 147 mg/dL (70-99) H [facility] CALCIUM 8.6 mg/dL (8.4-10.2) [facility] GFR 47 ml/min/1.73m2 (>59) L [facility] GFR ( AMER) 57 ml/min/1.73m2 (>59) L [facility] GFR INTERPRETATION [facility] --NORMAL KIDNEY FUNCTION OR MILD DISEASE - GFR >OR= 60CHRONIC KIDNEY DISEASE - GFR 15 - 59RENAL FAILURE - GFR <15 Est. GFR calculation based on the MDRDstudy equation, which assumes a steadystate for creatinine. Est. GFR should notbe used for medication dosing. ID Date Data Source [id number] 01/20/2020 01:38:40 PM EDT [facility] [place] [facility] [place] Name Value Range Interpretation Code Description Data Daphney rce(s) Supporting Document(s) WBC 15.5 10*3/uL (4.1-11.0) H [facility] RBC 4.47 10*6/uL (4.60-6.10) L [facility] HGB 14.3 g/dL (13.5-18.0) [facility] HCT 43.4 % (41.0-53.0) [facility] MCV 97.1 fL (80.0-95.0) H [facility] MCH 32.0 pg (27.0-32.0) [facility] MCHC 32.9 g/dL (32.0-36.0) [facility] RDW 14.5 % (10.5-14.5) [facility] [place] [facility]IR [facility] PLT 172 10*3/uL (150-450) [facility] [place] [facility] [place] [facility] MPV 9.3 fL (7.1-10.7) [facility] ID Date Data Source [id number] 01/20/2020 01:00:00 PM EDT [facility] ([facility]) Name Value Range Interpretation Code Description Data Daphney rce(s) Supporting Document(s) Color of Urine by Auto Laboratory test result [facility] ([facility] [place]) Clarity in Urine by Refractometry automated Laboratory test result [facility] ([facility]) pH of Urine by Automated test strip 5.5 5.0-7.5 [facility] ([facility]) Specific gravity of Urine by Refractometry automated 1.017 1.003 -1.030 [facility] ([facility]) Leukocyte esterase [Presence] in Urine by Automated te st strip Laboratory test result Abnormal (applies to non-numeric results) [facility] ([facility]) Nitrite [Presence] in Urine by Automated test strip Laboratory t est result Abnormal (applies to non-numeric results) [facility] ([facility]) Protein [Mass/volume] in Urine by Automated test strip Laborator y test result [facility] ([facility]) Glucose [Mass/volume] in Urine by Automated test strip Laborator y test result [facility] ([facility]) Ketones [Mass/volume] in Urine by Automated test strip Laborator y test result [facility] ([facility]) Urobilinogen [Units/volume] in Urine by Test strip 1.0 mg/dL 0-1.0 [facility] ([facility]) Hemoglobin [Presence] in Urine by Automated test strip Laborator y test result Abnormal (applies to non-numeric results) [facility] ([facility]) Bilirubin.total [Presence] in Urine by Automated test strip Laboratory test result [facility] ([facility]) ID Date Data Source [id number] 01/20/2020 01:00:00 PM EDT [facility] ([facility]) Name Value Range Interpretation Code Description Data Daphney rce(s) Supporting Document(s) Leukocytes [#/area] in Urine sediment by Microscopy hi gh power field Laboratory test result 0-5 [facility] ([facility]) Epithelial cells [#/area] in Urine sediment by Microsc opy high power field Laboratory test result [facility] ([facility]) Erythrocytes [#/area] in Urine sediment by Microscopy high power field Laboratory test result 0-2 [facility] ([facility]) Bacteria [#/area] in Urine sediment by Microscopy high power field Laboratory test result [facility] ([facility]) ID Date Data Source [id number] 01/20/2020 01:00:00 PM EDT [facility]) Name Value Range Interpretation Code Description Data Daphney rce(s) Supporting Document(s) Bacteria identified in Urine by Culture Laboratory test result [facility] ([facility]) SPECIMEN DESCRIPTION MIDSTREAM UR INE,CLEAN CATCH [...] CIPROFLOXACIN >=8 RESISTANT ID Date Data Source [id number] 01/22/2020 08:14:42 AM EDT [facility] [place] [facility] SPECIMEN DESCRIPTION MIDSTREAM UR INE,CLEAN CATCHCULTURE [...] rce(s) Supporting Document(s) ID Date Data Source [id number] 01/20/2020 02:04:10 PM EDT [facility] [place] [facility] Name Value Range Interpretation Code Description Data Daphney rce(s) Supporting Document(s) URINE WBC (0-5) [facility] URINE RBC (0-2) [facility] EPITHELIAL CELLS 2+ [HPF] [facility] BACTERIA 1+ [HPF] [facility] ID Date Data Source [id number] 01/20/2020 01:27:50 PM EDT [facility] Name Value Range Interpretation Code Description Data Daphney rce(s) Supporting Document(s) COLOR [facility] [facility] APPEARANCE [facility] SPEC GRAV URINE 1.017 (1.003-1.030) [facility] PH URINE 5.5 (5.0-7.5) [facility] LEUK ESTERASE 2+ (NEG) A [facility] NITRITE URINE (NEG) A [facility] PROTEIN URINE (NEG) [facility] GLUCOSE URINE (NEG) [facility] KETONE URINE (NEG) [facility] [place] [facility] [place] UROBILINOGEN 1.0 mg/dL (0-1.0) [facility] [place] [facility] [place] BILIRUBIN URINE (NEG) [facility] [place] [facility] BLOOD/HGB URINE 3+ (NEG) A [facility] [place] [facility] ID Date Data Source [id number] 01/20/2020 12:52:00 PM EDT [facility] ([facility]) Name Value Range Interpretation Code Description Data Daphney rce(s) Supporting Document(s) Comment Laboratory test result [facility] ([facility]) THE [place] FDA HAS MADE THIS TEST AVAILABL E UNDER AN EMERGENCY USE AUTHORIZATION (EUA) FOR THE DETECTION AND/OR DIAGNOSIS OF THE VIRUS THAT CAUSES COVID-19. EMAILED TO IC AT [id number] ON [id number] BY [id number]. Covid19 Result Laboratory test result [facility] ([facility]) THIS ASSAY AMPLIFIES AND DETECTS THE TARGET RNA USING REAL-TIME PCR. NEGATIVE 2019_NCOV RT-PCR RESULTS DO NOT PRECLUDE 2019_NCOV INFECTION AND SHOULD NOT BE USED THE SOLE BASIS FOR PATIENT MANAGEMENT DECISIONS. Specimen source [Identifier] of Unspecified specimen Laboratory mikki t result [facility] ([facility] [place]) Employed In [facility] [facility] Laboratory test result [facility] ([facility] [place]) First Test Laboratory test result [facility] ([facility] [place]) Symptomatic Laboratory test result M EDENT ([facility] [place]) Icu Laboratory test result [facility] ([facility] [place]) Patient was hospitalized because of this condition Laboratory test re sult [facility] ([facility] [place]) Illness or injury onset date and time Laboratory test result [facility] ([facility] [place]) Laboratory test result [facility] ([facility] [place]) Congregate Care Set Laboratory test result [facility] ([facility]) ID Date Data Source [id number] 01/20/2020 12:52:00 PM EDT [facility] [place] [facility] Name Value Range Interpretation Code Description Data Daphney rce(s) Supporting Document(s) SARS coronavirus 2 RNA [Presence] in Res piratory specimen by ASCENCION with probe detection [facility] This lab was reported by [facility] [place] [facility]. ID Date Data Source [id number] 01/20/2020 03:17:15 PM EDT [facility] Name Value Range Interpretation Code Description Data Daphney rce(s) Supporting Document(s) SPECIMEN DESCRIPTION Lab [facility] n[facility] NAIRYoni COVID19 RESULT (NDET) [facility] THIS ASSAY AMPLIFIES AND DETECTSTHE TARG ET RNA USING REAL-TIME PCR.NEGATIVE 2019_NCOV RT-PCR RESULTS DONOT PRECLUDE 2019_NCOV INFECTION ANDSHOULD NOT BE USED THE SOLE BASISFOR PATIENT MANAGEMENT DECISIONS. COMMENT [facility] UNDER AN EMERGENCY USE AUTHORIZATION(EUA ) FOR THE DETECTION AND/OR DIAGNOSISOF THE VIRUS THAT CAUSES COVID-19.EMAILED TO IC AT [id number] ON [id number] BY [id number]. FIRST TEST Lab [place] EMPLOYED IN [facility] Lab Davidia nce [facility] SYMPTOMATIC Lab [place] [facility] [facility] DATE OF SYMPT ONSET [facility] [place] [facility] ICU [facility] [place] [facility] CONGREGATE CARE SET [facility] [place] [place] [facility] ID Date Data Source [id number] 01/20/2020 11:14:00 AM EDT [facility] ([facility] [place]) Name Value Range Interpretation Code Description Data Daphney rce(s) Supporting Document(s) Bacteria identified in Urine by Culture Laboratory test result [facility] ([facility]) SPECIMEN DESCRIPTION MIDSTREAM UR INE,CLEAN CATCH CULTURE [...] CIPROFLOXACIN >=8 RESISTANT ID Date Data Source [id number] 01/22/2020 08:23:27 AM EDT Laboratory [place] [...] rce(s) Supporting Document(s) ID Date Data Source [id number] 01/20/2020 10:51:00 AM EDT [facility] ([facility]) Name Value Range Interpretation Code Description Data Daphney rce(s) Supporting Document(s) Glucose [Presence] in Urine Laboratory test result [facility] ([facility] [place]) Protein [Presence] in Urine by Test strip Laboratory test result [facility] ([facility] [employer] [facility]) Blood [Presence] in Urine by Visual Laboratory test result [facility] ([facility] [place]) Ua Leuko Laboratory test result ME DENT ([facility]) Ua Nitrite Laboratory test result ME DENT ([facility] [employer]) Color of Urine Laboratory test result [facility] ([facility]) Ketones [Presence] in Urine by Test strip Laboratory test result [facility] ([facility] [employer] [facility]) Clarity of Urine Laboratory test result [facility] ([facility] [employer]) pH of Urine by Test strip 5.5 5.0-7.5 [facility] ([facility]) Ua Specific [place] 1.020 1.003-1.030 MEDE NT ([facility]) Urobilinogen [Mass/volume] in Urine by Test strip 0.2 E.U./dL 0.0-1.0 [facility] ([facility]) Bilirubin.total [Presence] in Urine by Test strip Laboratory test res ult [facility] ([facility]) ID Date Data Source [id number] 10/24/2019 07:45:00 AM EDT [facility] [place] Name Value Range Interpretation Code Description Data Daphney rce(s) Supporting Document(s) Colonoscopy [facility] FWLGVn3gTxVASiYoNYZeKziEUNhcDFujAKRmQ8M5YXgoWn6KVBsokrAlADYcAl3+SYWmGZ8ibd1wKMRf gMy 9eQWYaAecnU7DwXAHzz93WXIAwYJsKUqScQgJiWcNkPWlgPHTuEGD9TlEhFeflVB0fJND8ITYmDFqcSP DiBUfkVPV0KfzhIO0jQTcoPYdvNv3NSS5hu7WeHTMsXTQaAblWISeuPHnkPSTzARKiQAOvW669bqCpWz 6HsZPmPHp2XKDwHxU3GRZxLvT7RWNaWc4zCoZyf3Lk K7NzBZp3O8nSYyokG6DvVAftLV9kZTM5UYDmFs3UdGdkBPqdGJJDC0xyPpVxWGRnACBTJc2+Pj4+DWVu EL1klp81TMKfd5WyLDl9T6U8kDQhK7WmG7HuIKAsgFJVj8yyLuQdAIB4OCGjOxumOZ3EAKPslPKyFVHw GKtxSX3ocjMdqZN0YQ3EzGzcKEAoVNBHYo1+Pi9QYX SnpmRtHzQkHTMfJ58vlSSxyEVtIuolYYGQNM2+QMZaNO2oyp32WDXcr2LzGVf7N4wrvdp2jBNlNsF7EW ZcGnOuOINpXN9fMR8OpUM1yBNwGQ5JrCEcPK2EvFSuYJ2HI4ViRMP4N2AzcLLgwxZrQ8YwCUYoOHOoq7 KhBW6DT9CKAWIgINPhO2WujN1zO7EiP1UcG6Ztuzni ZYIPCh5OwBN5mZNnVDGoV3nqzNglyGKyYRsuU2SbvTGXDFHFu02zs56uvsVmYF2+o8TrFZBaEGz31to7 ZVAcX/cbIDADRio8SKuuZWLnIoQYaz6wZ2tcHjO8QDu6HgkneEI5D2xDyTGU3//gbep5rne2mo/eD+/z 7VSXrt2+j9pd0jCt4vCm6DCMXUrnJBRAcMEHLJNA96 ywkGn5MTgpwIidjNhM+IKpSKESsHNdg6lZ4N2Zt6AOstRaAzK74+Gb1xfn7mjn5qKd5+Lm/WacSM8ed2 ZHQyfGwCDmfEv+lvP/LK86YEihpVpjrqRLVcJFNdTYL+CiI5UUJQSrDeqEHC6mWOqTFiKyu3Jeu0H3QM CPDXiFAAS+QgQiISEi/u31+foVSUFVgh2L6BXAL0dK [file] 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+7CLp7cuxsVLW8n+inEWeV/gym5qsnduu6z49SU+GqbgNvHf9vTjaxwGskAmHpIyl6tSv3pBBD2FT [file] BQPe6dALnF2D+5dA/0dItL9nfOItYI+n/dM21VDEYL/rC3X5d7vgD+oIqQ+x+[place]+CFsDcqz9hNfWdas [file] cgfYj/LSWHN7J7KkZHTYqv5u0m1DMQhQht9DG783lXQC05yNH6h/6+1QTWRa7o8NP/Riley++vzmQnUGUM P/YShfyC/KghqwbnPB5t+uZ8ZAuuCxQESdxgUn6Asv 5VmmT4ub36MbwAXjaksb0mj1G19jRWQ/MkXTtn5peLBXIrjgtLhCPZJbGsUotbo5YghWK2DSG31g/7Ua r2GpIQ+CFouuKcifcJ1x7ucTzOcAT24qhA31GQWk235zLQOVEtsCXqcTVZZpYViNC5r3/tZGHj76nVi1 Hk6gdxvKPrqoSctRm1Azko+9W7nMdtZqo9UFJk78KD FRKrFYYYrS2s6uh02VBv1W5f7kbE38+mFb0HXB5RP5QDroxmPSWi8UgXiEDe/bofN9c+KG7mNzVdAJfY 6geLvSp8eRX3X7Njgpt4tVsl3ko4NvXfzWYbC+RsQlc1EmK/XffN//HGYLR3SSu/G27VoxyhnDezvh7Y yaEI3zSducSV9UPvOCkQN9ALwSMh1Sew3FxPi0tPtv bDEd8rVsE3Xzd5CvxEuXASu2qT/c0FE8GDD7JdvtaVvLC7GSyDk/FwHiz0gaKip76dRH/ktyh3PolzSK H2JW6J786H3jCw+ds5Xh9VX6omdo2+zFU2DU91hGknepkUvRDpwzp92flVb+fSoaWT5u3ca43rk4CoPj rpy9PvhQaWIqkxEWNnzpPddQYfMO6OJ0Z4CSZ4K7xL uUOTFZ5mGqv8edQ42h+tvcGTNgi8OVdZqyaWVPcj4nRScat+rDGWELsxXZYtEhVlW3/LR1a5yq62DPex Xookr9JBDLMS/HPKUGW5+rT/8agHmSucOSHadkOHKX/o9PlewXC6461vcc8E0ju+VZFB04bDL2zfe7AQ JPkaeXPSlgUgQPiY9tB9RYRChqc9+bhC+LjXkqhqHd hU9yfXH8/iMPyCwxpoBMpZFtQUodHGlcC+Sanjuana/lEsUdlxWRWk39EYnvh4cum2iv6P1ogNsBF6pICAVWW VMizNfpEvJpS237S9f6yARjC5UGr9BgyrZMxAvwGppxFKsS6At6nfCElqh4K7jNaDAI/nQFHvP09lp2s htYaIjoIhmf7xFkGiopEtZYymUcsMQHext+WQWejjv QUALITY CONTROL LEAD/a6rHpT6HgtHiP1GryzDvh8VAU9aK+m1zH87VX3OOIpn65cP2oj87sVvs6dnXxQ5Cq+IjwlMVn5q6x [file] Operations Research Manager/Vd0hxHQhma5OsHux6h42hFsQPMCgg9rMUohxkf2RAN70T25ODqGwFXtpPueIkoYltbHqpfYMvyCsc [file] rQwlehwaOl10rs0a9pqkyUX8e/AWjFsjxp8Sfpoc/T p3n91QnKghNJdB9aqRi/kFNV+pxZHd4vpTSEE+Rk/Z3ptAhoW/L7NKxc/son52Y2CLanIpDKZbYL/KyQ f/Grw+vDsPP4DJVnPjgaC3ozw4MgrFjEgMOh+eKQo5spEeHkjwzZXCPzgHIBXo9ad2zP0zoizi3SAI3j +NOy32IA1L4QI4hOvl0sxXJ226sr/KVPIIQRWV0h4g DF//RzATc6TczfAC9rJgEbIaxY3pDK2xTT5ueq7q0y0cmqJKZu6sYWK15c3uewQLXtEVEimGuelDXjwa NVjL3CA2YGETEQK2I2SvurAfteIxCFI6Bqagt9U7VcqIdSmlmASzlh2eU6xizdsi4RdZib8gn3S/dpbU 3j74kRQq4wXtcPuOxns+ZpoDn1gZ/6QqhL1nJzRYAX MV6drlmimndTlco3k/EaCZsjxutp5wiidazaR7M6XK59ZR95+2HHxsJed8+s7wa7xJZI/6g50/YD1pw7 mvFvH6pHAISNnVwl20mFm9qdO1gQozUccTgAABDH0GrMOWBT+Y5dQ7eKzZko377ZF5vuhmS2b0Dxuj+i FRbRttc7cbH54W/edPJa5vz0zETWCEYrjfSwdkOXoX geIufxjnOhDU1M8YA8xAMeAjmj9ZADG6pvSe1JmhJxN+GdKrrl0iS97enP05R9Bfq8KDlprm08Uu8gYo 8jcdvHAKLo8ASOS/i4rM/86OCQXl/5vH+l3RcChteG6DLV7wv7XjXVXnEDExMG3pgf2qVlYgPC1ary52 RR0PVT4myLhpLtA+RsI9rfChsS2PvYs6GRBqHJBxNZ e3MaVcZXHkG48MX5beQaByAT9PFM5NBM1kz4JzLSUoKDQoMM6cyh6gAeYePO5qke50XS4IpRl9EUEuA6 OuIZTtCLJxi7IfZ1lmrjs6uXV0AU9OCWIcSGXSFvpDSvU9QSUBYxZ2LIGUZER5BvYtLZPwUdYPNZEUTt S8KZLHZSFfQWtLCSY1BTEVOlBsVQXtFuT5TTWjCRQI M0M+QU6Gg593IPDdEBKEG3adGq5zUgNiZZIyV3g5KYEoQH7JnVMlYF3SNuTzN4xjSzVrHDXfCZ2+c3Ry XKNnRTd56kYlHJWqFWYXgdaz6uLGrjPNfAZv9wSKTPgNVpVtp0u4zkKPd/EbiHQqBpNHgCRnUTOYvMIA TXECM9hDAgCqPBG0ozMxrD7VDZ5la5OcAX6Jp3IpidG2opOnQUu0TFwlPgJCCmNyXN1Z ID Date Data Source [id number] 10/03/2019 01:15:00 PM EDT [facility] [place] Name Value Range Interpretation Code Description Data Daphney rce(s) Supporting Document(s) Follow Up [facility] [place] BCLMUu3rXdUKUcSeVNZlXkrLQAmbCAptKWUaE5B0CDpqRo9OCWxoeqCiWNDiNn8+OUReJI6cok7oJFGi gMy [file] KsRhTBbd5D0vFJml6/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+lpkIPfR4B7FILttEWFtT1 [file] EVx7B2pUtmZlPz/EIj2uI7z8/vwfVTYtsA7PtsOaAg+KfoPgap0m5HDPpdbu3b9ZwDHXzB+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/DVUfl/ [file] KnwGao46O3xfiYy9wTwHfzjugvBraKh8ctVv3HGJ1AvWPhYP45caJLvZ7LQje8epTYzbE6vjrwXr/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 [file] Alexandre+cRr+yyxTQVe3Y9mHqAY2V6kJebC3sCGAN2oyZe/rf2Y+X8WUahBKC22nP/fFc3hyujPxPMNrnDK/ EKAeXWne3GzfRpsUXV7/kLyzd6JbaA0w11WxrMgb/[facility] [file] maria c+jrtLnA3vCrC3d8XaoXIjwV/8H7j8El3QwrO58AS7wYdgpH0x5o/5Npk43+ahOWsFUK1kzbWa6BTV [file] X0ntYkqHOCJD+TkmAzMSStX42p11B5AL/dgV6rDRs3uEhifW3Bjp/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 and recovery shift engineer+qVkVYEei42PdRqjL/thrXnv 2770h+rUvLqqx1/P/QMvYxbiO47QdUg6P3511dqQ8r SLL733uihQKciEUIzsFVtfCUqBy5LHRpRNrynzUqJa9/eR7NWbjFtow8bo8ODT6DEe6NTXvi1dqZKn+s +WxffK4TlFU7g7zZoAu/89BGx9Ozk0m/ZVDHEB12cJ12bWm8KIj9kGluiBWPKAbRizmvJ/WoWRs8zwSw FLwkZJAKo4QmeGrBxPFFjKKq6oRM3k+TsgqMtL+u2Z f7SfXfM26WpNJH5EwaPCeHkgKsh7wE206QXp2qviIPzt17fboNf3da5EL/+19uO4UhTFRzMCjupnPiaq FHTHgvw7BGJ5LJx/cz1K5FVWG6dCwWctPctxeuhyFlWtmC30w9j/g7ERyxHhmS94zUZ92fHc3hLEjvh8 0wTF1eJUyOtJsGsYAeTAOdT8g7qW7ltMgj7Lx1iv8O 1p0RMRICILAKDc3X59ORAIg+kLVEGZI+yvednBCbyhFyqHNH+aQmlgdUs0plP6lfXenrz5oZHEjk/zTX 0KHNYwRwxQXEpmnYMWq71jlbKbk0xViOO7EV7omlj5MTo9fnSouFnupvflAJrN2cP5iQszWYATQWzHqS zuZqW7p0qsf0vsTIhFKB+18Kqq60b25ARURmNLnkSq pEAYDbnOrKYFowkHycGvUpusj8XMxyDbUk9J3sDz15+cFjKH3zKUGfa14FWL5TMt8T4SLkP4tSLVuJ6X qAnDyMQx9t88OD+Er2IT+DGhsVjga2I/dwpE0Tnyqqhd9xuzzKffA2aK2C6/zLzrJw/Nxb0v9MtVXTTj ny9a8r2z/qnOVNYOr04wW8Nit/paiYMq2WJfloiRT0 shaquille+flaMK+JKxSVuibN1sWCzXQR+ElEQHI0bfLBXbjeH73I3p0zNbTmdihquS7EU+eoV7Xax4w8GYZEk [file] VnMql8kC0LWjWn6UA8M+CDL FLATBED TRUCK DRIVER+mtegNYdmceIXytoxRDufaJiSU4jlaepJaVBMGCCfsAm/wxlxnrj3hrtTQ [file] QnBiV0vV7PpZcQ1JX0pLdWZQF7MOJdpLDYw7MF+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 [file] 6ANsim7GpyDk+P/zYZdGiPxI1CPXmkc022v9EU+EksdWf4QbQaZR+mary beth+rRalTicm5uB4OHbYZn/6+IP [file] FQETd0X5HnJCi6iP5uAkTbtaA4o/8ve/grade school teacher/jfEXjpCGDoWg+OpW2u+basX2BEiNUyTRU6xtRczOZwtW [file] mtSdoOKXBE3qSVaUlhKKQGKWTWBXMJKu5OW5sgasxp kLToUs4XOq/1HeqcLjC4gais71FyjgQQkwKYGkEbeKD9HdnkAA8vLLdTDWpN6hVATrHpu2NgIzO0/Y6C pg6OqGap8sF3GSl+5/nVoyr1+7061bvRfsoE9xYYA6TDDS33HdtudbhPaN5P430Wnvc7NoyOkMlYYYl3 AFoa+7NZBldxp0hIKGkdXv7nJS5h2nvJqfsiZwadCh ihD0xWwOyoQgfuLPPXVAxz6mtwda9gaGpijVRHIevh07bzEmnCNSSWvX7hdvxlJwkJFWgAciwmqyi+vX pp1VEw/oa82AwVfNF1W3nVEa1MDTbEZfjdB2CCgHK0672VjjvyRFpZ03k69Cbbkqho+cu3QjafjNmnF9 ChllNp6G+VMLmbcj+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+MXZrHTNKRUcw9sqg1T3vlp [file] 7lelJ2GFC7bH5+Edge Trimmer+Aavu/Venus/mi9bMahw2U8WOjEJdQ1anBUu0az203FS0/XwkCnANICRxmK+UwgDtA [file] Luis Eduardo/1VsPy3DrhDFaGoQ7HIeJIJLTNedoVIIwEwc+IH7GufI/BPonhbFghoW4f1aMvnoYBP/XO1MKmJSZ QFTMSBOEtpLgUGOwtqRDdrlF0HN8g4cnZmt71jymTV lkdIcEf99uEWW1S1qKGk4GRLbqhyL9zTlYQ5MfxblfjciG/er5j4+WnsgcSTzXz+u+2dfHkhph3+CMil mXfNOiLIFRVPNWJVhkl0K7yWzERG8uZgEzXTQHGgyjroCusRJ+Ne7+sPRH6SDK4uH5pFM9cy6E+tMX+1 NVszC4F+SKbFBueGFtMp0CGGygs9d/vt2G5Lj0576B c/Dj5/mOTnls+XSaYLqn9jLC0pGteqnQ2yiQ2QxapX0H957sKyT0yterf8UxLV2kCDYtiyHWlN8+R4bW MKFtJ0hsJKg0D5Nm6pnOlLn4XiliXT19CxgO9T3gpFIoqBdunNYXrvt6nd9b9oqn85Jt5eo6u9ytR2gd PakH+KXUVU5cob9VX1jZDLCUFF0QGOWK6RyhgfSbFE [file] AXmfpuNogRPnYY8YEvFbML2vlf8DNsE0DMK9cDOxFs0GXDXhVOZ3Fu1UZXSWB8E= ID Date Data Source [id number] 09/02/2019 10:01:00 AM EDT [facility] ([facility]) Name Value Range Interpretation Code Description Data Daphney rce(s) Supporting Document(s) Urate [Mass/volume] in Serum or Plasma 4.9 mg/dL 3.7-8.6 [facility] ([facility]) A courtesy copy of this report has been sent to [phone] Calcidiol [Mass/volume] in Serum or Plasma 31.7 ng/mL 30.0-100.0 [facility] ([facility]) A courtesy copy of this report has been sent to [phone] ID Date Data Source [id number] 09/02/2019 10:01:00 AM EDT [facility] ([facility]) Name Value Range Interpretation Code Description Data Daphney rce(s) Supporting Document(s) Urea nitrogen [Mass/volume] in Serum or Plasma 21 mg/dL 8-27 [facility] ([facility]) A courtesy copy of this report has been sent to [phone] Glucose [Mass/volume] in Serum or Plasma 136 mg/dL 65-99 [facility] ([facility]) A courtesy copy of this report has been sent to [phone] eGFR If NonAfricn Am 62 mL/min/1.73 [facility] ([facility]) A courtesy copy of this report has been sent to [phone] Creatinine [Mass/volume] in Serum or Plasma 1.24 mg/dL 0.76-1.27 [facility] ([facility]) A courtesy copy of this report has been sent to [phone] Sodium 144 mmol/L 134-144 [facility] ([facility]) A courtesy copy of this report has been sent to [phone] BUN/Creatinine Ratio 17 10-24 [facility] NT ([facility]) A courtesy copy of this report has been sent to [phone] eGFR If Africn Am 72 mL/min/1.73 [facility] ([facility]) A courtesy copy of this report has been sent to [phone] Carbon Dioxide, Total 24 mmol/L 20-29 [facility] ([facility]) A courtesy copy of this report has been sent to [phone] Chloride 105 mmol/L 96-106 [facility] ([facility]) A courtesy copy of this report has been sent to [phone] Potassium 4.6 mmol/L 3.5-5.2 [facility] A courtesy copy of this report has been sent to [phone] Calcium [Mass/volume] in Serum or Plasma 9.4 mg/dL 8.6-10.2 [facility] ([facility]) A courtesy copy of this report has been sent to [phone] ID Date Data Source [id number] 09/03/2019 04:06:00 AM EDT [facility] Name Value [...] mg/dL 8.6-10.2 [facility] ID Date Data Source [id number] 09/03/2019 05:06:00 AM EDT [facility] Name Value Range Interpretation Code Description Data Daphney rce(s) Supporting Document(s) Vitamin D, 25-Hydroxy 31.7 ng/mL 30.0-100.0 [facility] Vitamin D deficiency has been defined by the [place] [employer] and an Endocrine Society practice guideline as alevel of serum 25-OH vitamin D less than 20 ng/mL (1,2).The Endocrine Society went on to further define vitamin Dinsufficiency as a level between 21 and 29 ng/mL (2).1. IOM ([place] [employer]). 2010. Dietary reference intakes for calcium and D. [place]: The National Academies Press.2. Deonna MF, Dustin TERRY, Raulito LEE, et al. Evaluation, treatment, and prevention of vitamin D deficiency: an Endocrine Society clinical practice guideline. JCEM. 2010; 96(7):1911-30. ID Date Data Source [id number] 09/03/2019 08:08:00 AM EDT [facility] Name Value Range Interpretation Code Description Data Daphney rce(s) Supporting Document(s) Uric Acid 4.9 mg/dL 3.7-8.6 [facility] Therapeutic ta rget for gout patients: <6.0 ID Date Data Source [id number] 08/22/2019 12:00:00 PM EDT [facility]) Name Value Range Interpretation Code Description Data Daphney rce(s) Supporting Document(s) Laboratory test finding (navigational concept) Laboratory test result MEDENT ([employer] [place]) ID Date Data Source [id number] 08/22/2019 12:00:00 PM EDT MEDENT ([facility]) Name Value Range Interpretation Code Description Data Daphney rce(s) Supporting Document(s) 24 hr Creatinine 1577 mg/d MEDENT ( [facility] [employer] [facility]) Source of Specimen: Urine 24 hr Calcium per 24 hr Creatinine 50 mg/g 34-196 MEDENT ([facility] [employer]) Source of Specimen: Urine 24 hr Calcium per Kilogram Body Weight 0.6 mg/d/kg MEDENT ([facility] [employer] [facility]) Source of Specimen: Urine 24 hr Creatinine per Kilogram Body Weight 12.3 mg/d/kg 11.9-24.4 MEDENT ([facility]) Source of Specimen: Urine ID Date Data Source [id number] 08/22/2019 12:00:00 PM EDT MEDENT ([facility]) Name Value Range Interpretation Code Description Data Daphney rce(s) Supporting Document(s) 24 hr Chloride 158 mmol/d 70-250 MEDENT ([facility] [employer] [place]) Source of Specimen: Urine 24 hr Sulfate 41 mEq/d 20-80 MEDENT (Ass oc[facility]) Source of Specimen: Urine 24 hr Sodium 179 mmol/d 50-150 MEDENT ([facility]so [facility]) Source of Specimen: Urine 24 hr Potassium 54 mmol/d 20-100 MEDENT (A ssoci[facility]) Source of Specimen: Urine 24 hr Ammonium 47 mmol/d 15-60 MEDENT (As [facility]) Source of Specimen: Urine 24 hr Urea Nitrogen 13.42 g/d 6.00-14.00 MEDEN T ([facility]) Source of Specimen: Urine 24 hr Magnesium 121 mg/d 30-120 MEDENT (A [facility]) Source of Specimen: Urine 24 hr Phosphorus 1.359 g/d 0.60-1.20 MEDENT ( [facility] [employer] [facility]) Source of Specimen: Urine This value shows an increased risk factor of 1, where 0 is normal and 7 is extremely high. Protein Catabolic Rate 0.8 g/kg/d 0.8-1.4 [place] DENT ([facility]) Source of Specimen: Urine ID Date Data Source [id number] 08/22/2019 12:00:00 PM EDT [facility] Name Value Range Interpretation Code Description Data [facility] Supporting Document(s) Interpretations Collection A Laboratory test result MEDENT ([facility] [employer] [facility]) Source of Specimen: Urine : Urine [...] as noted above. ID Date Data Source [id number] 08/22/2019 12:00:00 PM EDT MEDENT ([facility] [employer] [facility] [place]) Name Value Range Interpretation Code Description Data Daphney rce(s) Supporting Document(s) pH 5.441 5.800-6.200 MEDENT ([employer] [employer] [place]) Source of Specimen: Urine This value shows an increased risk factor of 4, where 0 is normal and 7 is extremely high. 24 hr Uric Acid 0.317 g/d MEDENT ([facility] [employer] [facility] [place]) Source of Specimen: Urine 24 hr Calcium 80 mg/d MEDENT ([facility]) Source of Specimen: Urine 24 hr Citrate 109 mg/d MEDENT ([facility] Prom[facility]) Source of Specimen: Urine This value shows an increased risk factor of 5, where 0 is normal and 7 is extremely high. Urine Volume 1.98 L/d 0.50-4.00 MEDENT ([facility]so [facility]) Source of Specimen: Urine This value shows an increased risk factor of 1, where 0 is normal and 7 is extremely high. 24 hr Oxalate 105 mg/d 20-40 MEDENT (Ass [facility]) Source of Specimen: Urine This value shows an increased risk factor of 5, where 0 is normal and 7 is extremely high. Supersaturation CaP 0.15 0.50-2.00 MEDEN T ([facility]) Source of Specimen: Urine Supersaturation Uric Acid 0.79 MEDENT ([facility]) Source of Specimen: Urine Supersaturation CaOx 7.14 6.00-10.00 MEDE NT ([facility]) Source of Specimen: Urine This value shows an increased risk factor of 3, where 0 is normal and 7 is extremely high. ID Date Data Source [id number] 08/17/2019 10:53:00 AM EDT [facility] ([facility]) Name Value Range Interpretation Code Description Data Daphney rce(s) Supporting Document(s) Red Blood Count 4.43 4.00-5.40 MEDENT (Cardio logy [facility]) Platelets 155 172-450 MEDENT (Cardiology A ssoci[facility]) White Blood Count 8.2 5.0-10.0 MEDENT (Card iology [facility]) Hematocrit 41.6 MEDENT ([facility]) Hemoglobin 14.0 MEDENT ([facility]) ID Date Data Source [id number] 08/17/2019 10:53:00 AM EDT MEDENT ([facility]i [facility]y [facility]) Name Value Range Interpretation Code Description Data Daphney rce(s) Supporting Document(s) Calcium [Mass/volume] in Serum or Plasma 7.9 MEDENT ([facility]) Potassium [Moles/volume] in Serum or Plasma 3.9 MEDENT ([facility]) Chloride [Moles/volume] in Serum or Plasma 111 MEDENT ([facility]) Sodium 142 MEDENT (Cardiology A [facility]) Carbon dioxide, total [Moles/volume] in Serum or Plasma 24 MEDENT ([facility]) Glucose 125 83-110 MEDENT ([facility]iology A [facility]) Blood Urea Nitrogen 15 7-18 MEDENT (Ca rdiology [facility]) Creatinine 1.08 0.6-1.0 MEDENT ([facility]) Glomerular filtration rate/1.73 sq M.pre dicted [Volume Rate/Area] in Serum or Plasma by Creatinine-based formula (MDRD) Laboratory test result MEDENT ([facility]) ID Date Data Source [id number] 08/16/2019 10:50:00 AM EDT [facility] Name Value Range Interpretation Code Description Data Daphney rce(s) Supporting Document(s) Triglycerides 154 MEDENT (Cardiolo gy [facility]) HDL 28 MEDENT ([facility]) Cholesterol in LDL [Mass/volume] in Serum or Plasma by calculation 32 MEDENT ([facility]) Cholesterol 91 MEDENT ([facility]) Chol/HDL Ratio 3.250 MEDENT ([facility]iol ogy [facility]) ID Date Data Source [id number] 08/16/2019 10:50:00 AM EDT MEDENT ([facility]) Name Value Range Interpretation Code Description Data Daphney rce(s) Supporting Document(s) Albumin [Mass/volume] in Serum or Plasma 3.1 MEDENT ([facility]) Carbon dioxide, total [Moles/volume] in Serum or Plasma 25 MEDENT ([facility]) Calcium [Mass/volume] in Serum or Plasma 7.8 MEDENT ([facility]) Alanine aminotransferase [Enzymatic activity/volume] in Serum or Pl asma 28 MEDENT ([facility]) Chloride [Moles/volume] in Serum or Plasma 112 MEDENT ([facility]) Potassium [Moles/volume] in Serum or Plasma 3.8 MEDENT ([facility]) Alkaline phosphatase [Enzymatic activity/volume] in Serum or Plasma 7 6 MEDENT ([facility]) Sodium 144 MEDENT (Cardiology A [facility]) Protein [Mass/volume] in Serum or Plasma 6.6 MEDENT ([facility]) Aspartate aminotransferase [Enzymatic activity/volume] in Serum or Plasma 15 MEDENT ([facility]) Urea nitrogen [Mass/volume] in Serum or Plasma 18 MEDENT ([facility]) Glucose 139 83-110 [facility] Creatinine For GFR 1.07 MEDENT (Car diology [facility]) ID Date Data Source [id number] 08/15/2019 10:47:00 AM EDT MEDENT ([facility]) Name Value Range Interpretation Code Description Data Daphney rce(s) Supporting Document(s) White Blood Count 9.5 5.0-10.0 MEDENT (Card i[facility]) Platelets 174 172-450 [facility] Hematocrit 43.1 MEDENT ([facility]) Red Blood Count 4.55 4.00-5.40 MEDENT (Cardio logy [facility]) Hemoglobin 14.2 MEDENT ([facility]) ID Date Data Source [id number] 08/15/2019 10:47:00 AM EDT MEDENT ([facility]) Name Value Range Interpretation Code Description Data Daphney rce(s) Supporting Document(s) Magnesium Level 1.9 1.8-2.4 MEDENT (Cardio logy [facility]) Troponin Laboratory test result MEDENT ([facility]) ID Date Data Source [id number] 08/15/2019 10:47:00 AM EDT MEDENT ([facility]) Name Value Range Interpretation Code Description Data Daphney rce(s) Supporting Document(s) Creatine kinase [Enzymatic activity/volume] in Serum or Plasma 88 MEDENT ([facility]) MB/CK Relative 1.82 MEDENT ([facility]) CPK-MB 1.6 MEDENT (Cardiology A ssoci[facility]) ID Date Data Source [id number] 08/15/2019 10:47:00 AM EDT MEDENT ([facility]) Name Value Range Interpretation Code Description Data Daphney rce(s) Supporting Document(s) Albumin [Mass/volume] in Serum or Plasma 3.6 MEDENT ([facility]) Alanine aminotransferase [Enzymatic activity/volume] in Serum or Pl asma 30 MEDENT ([facility]) Carbon dioxide, total [Moles/volume] in Serum or Plasma 26 MEDENT ([facility]) Calcium [Mass/volume] in Serum or Plasma 8.1 MEDENT ([facility]) Potassium [Moles/volume] in Serum or Plasma 4.6 MEDENT ([facility]) Chloride [Moles/volume] in Serum or Plasma 110 MEDENT ([facility]) Alkaline phosphatase [Enzymatic activity/volume] in Serum or Plasma 9 4 MEDENT ([facility]) Protein [Mass/volume] in Serum or Plasma 7.0 MEDENT ([facility]) Sodium 142 MEDENT (Cardiology A ociates [facility]) Urea nitrogen [Mass/volume] in Serum or Plasma 19 MEDENT ([facility]) Aspartate aminotransferase [Enzymatic activity/volume] in Serum or Plasma 24 MEDENT ([facility]) Creatinine For GFR 1.19 MEDENT (Car dioly [facility]) Glucose 108 83-110 MEDENT ([facility]) ID Date Data Source [id number] 05/21/2019 01:44:00 PM EST MED[facility] ([facility] [facility] [place]) Name Value Range Interpretation Code Description Data Daphney rce(s) Supporting Document(s) Bacteria identified in Urine by Culture Laboratory test result MEDENT ([facility] [employer] [place]) SPECIMEN DESCRIPTION MIDSTREAM UR INE,CLEAN CATCH CULTURE RESULTS MIXED UROGENITAL IRENE; PLEASE SUBMIT A NEW SPEC IMEN IF CLINICALLY INDICATED. REPORT STATUS FINAL 05/22/2019 ID Date Data Source [id number] 05/22/2019 01:13:17 PM EST [facility] - CORE SPECIMEN DESCRIPTION MIDSTREAM UR INE,CLEAN CATCHCULTURE RESULTS MIXED UROGENITAL IRENE; PLEASE SUBMIT A NEW SPEC IMEN IF CLINICALLY INDICATED.REPORT STATUS FINAL 05/22/2019 Name Value Range Interpretation Code Description Data Daphney rce(s) Supporting Document(s) ID Date Data Source [id number] 05/21/2019 01:03:00 PM EST MEDENT ([facility]) Name Value Range Interpretation Code Description Data Daphney rce(s) Supporting Document(s) Protein [Presence] in Urine by Test strip Laboratory test result MEDENT ([facility]) Ua Nitrite Laboratory test result ME DENT ([facility]) Glucose [Presence] in Urine Laboratory test result MEDENT ([facility] [employer] [facility]) Ua Leuko Laboratory test result ME DENT ([facility]) Blood [Presence] in Urine by Visual Laboratory test result MEDENT ([facility] [employer] [facility]) Ketones [Presence] in Urine by Test strip Laboratory test result MEDENT ([facility]) Color of Urine Laboratory test result MEDENT ([facility] [employer]) Clarity of Urine Laboratory test result MEDENT ([facility] [employer] [facility]) Ua Specific [place] 1.010 1.003-1.030 MEDE NT ([facility]) pH of Urine by Test strip 5.5 5.0-7.5 MEDENT ([facility]) Bilirubin.total [Presence] in Urine by Test strip Laboratory test res ult MEDENT ([facility]) Urobilinogen [Mass/volume] in Urine by Test strip 0.2 E.U./dL 0.0-1.0 MEDENT ([facility]) ID Date Data Source [id number] 05/21/2019 12:08:00 PM EST [facility]: XRAY ABDOMEN KUBCLINICAL HISTORY: [...] rce(s) Supporting Document(s) ID Date Data Source [id number] 04/28/2019 07:54:00 AM EST MED[facility] ([facility] [facility] [place]) Name Value Range Interpretation Code Description Data Daphney rce(s) Supporting Document(s) Prostate specific Ag [Mass/volume] in Serum or Plasma 0.5 ng/mL 0.0- 4.0 MEDENT ([employer] [employer] [place]) [place] ECLIA methodology. According to the [employer] [employer], Serum PSA should decrease and [...] of malignant disease. ID Date Data Source [id number] 04/29/2019 07:05:00 AM EST [facility] Name Value Range Interpretation Code Description Data Daphney rce(s) Supporting Document(s) Prostate Specific Ag, Serum 0.5 ng/mL 0.0-4.0 [facility] [place] ECLIA methodology. According to th e [employer], Serum PSA shoulddecrease and remain at undetectable levels after radicalprostatectomy. The AUA defines biochemical recurrence as an initialPSA value 0.2 ng/mL or greater followed by a subsequent confirmatoryPSA value 0.2 ng/mL or greater.Values obtained with different assay methods or kits cannot be usedinterchangeably. Results cannot be interpreted as absolute evidenceof the presence or absence of malignant disease. ID Date Data Source [id number] 04/21/2019 12:00:00 PM EST MEDENT ([facility]) Name Value Range Interpretation Code Description Data Daphney rce(s) Supporting Document(s) Laboratory test finding (navigational concept) Laboratory test result MEDENT ([facility]) ID Date Data Source [id number] 04/21/2019 12:00:00 PM EST MEDENT ([facility]) Name Value Range Interpretation Code Description Data [facility] rce(s) Supporting Document(s) 24 hr Creatinine 1731 mg/d MEDENT ( [facility] [employer] [facility]) Source of Specimen: Urine 24 hr Calcium per Kilogram Body Weight 0.5 mg/d/kg MEDENT ([facility]) Source of Specimen: Urine 24 hr Creatinine per Kilogram Body Weight 14.2 mg/d/kg 11.9-24.4 MEDENT ([facility]) Source of Specimen: Urine 24 hr Calcium per 24 hr Creatinine 36 mg/g 34-196 MEDENT ([facility]) Source of Specimen: Urine ID Date Data Source [id number] 04/21/2019 12:00:00 PM EST [facility] Name Value Range Interpretation Code Description Data [facility] Supporting Document(s) 24 hr Chloride 244 mmol/d 70-250 MEDENT (As sociated [facility]otions [facility]) Source of Specimen: Urine This value shows an increased risk factor of 2, where 0 is normal and 7 is extremely high. 24 hr Sulfate 42 mEq/d 20-80 MEDENT (Ass ociated Promotions [facility]) Source of Specimen: Urine 24 hr Ammonium 75 mmol/d 15-60 MEDENT ([facility] [employer] [facility] [place]) Source of Specimen: Urine 24 hr Potassium 71 mmol/d 20-100 MEDENT (A ssociated [facility]otions [facility]) Source of Specimen: Urine 24 hr Phosphorus 1.728 g/d 0.60-1.20 MEDENT ( [facility]) Source of Specimen: Urine This value shows an increased risk factor of 3, where 0 is normal and 7 is extremely high. 24 hr Sodium 245 mmol/d 50-150 MEDENT (Asso ciated [facility]) Source of Specimen: Urine This value shows an increased risk factor of 2, where 0 is normal and 7 is extremely high. 24 hr Magnesium 168 mg/d 30-120 MEDENT (A ssociated [facility]otions [facility]) Source of Specimen: Urine 24 hr Urea Nitrogen 16.50 g/d 6.00-14.00 DREW Alfaro ([facility] [employer] [facility] [place]) Source of Specimen: Urine This value shows an increased risk factor of 1, where 0 is normal and 7 is extremely high. Protein Catabolic Rate 1.0 g/kg/d 0.8-1.4 [place] JAVED ([facility] [employer] [facility]) Source of Specimen: Urine ID Date Data Source [id number] 04/21/2019 12:00:00 PM EST ALFRED ([facility] [place]) Name Value Range Interpretation Code Description Data Daphney rce(s) Supporting Document(s) Interpretations Collection A Laboratory test result MEDNATALY ([facility] [employer] [facility] [employer] [place]) Source of Specimen: Urine [employer] Manager's Note: At least one urine analyte [...] = 42 meq/d). ID Date Data Source [id number] 04/21/2019 12:00:00 PM EST MEDENT ([facility] [facility] [place]) Name Value Range Interpretation Code Description Data Daphney rce(s) Supporting Document(s) 24 hr Oxalate 168 mg/d 20-40 MEDENT ([facility] [employer] [facility] [place]) Source of Specimen: Urine This value shows an increased risk factor of 5, where 0 is normal and 7 is extremely high. 24 hr Uric Acid 0.345 g/d MED[facility] ([facility] [place]) Source of Specimen: Urine pH 5.508 5.800-6.200 MED[facility] ([facility] [employer] [facility] [place]) Source of Specimen: Urine This value shows an increased risk factor of 3, where 0 is normal and 7 is extremely high. 24 hr Calcium 62 mg/d MEDENT ([facility]at ed [facility]) Source of Specimen: Urine 24 hr Citrate Laboratory test result MEDENT ([facility] [employer] [facility] [place]) Source of Specimen: Urine This value shows an increased risk factor of 5, where 0 is normal and 7 is extremely high. Supersaturation CaOx 4.50 6.00-10.00 MEDE NT ([facility] [employer] [facility] [place]) Source of Specimen: Urine Urine Volume 3.03 L/d 0.50-4.00 MEDENT (Asso ciated [facility]) Source of Specimen: Urine Supersaturation CaP 0.08 0.50-2.00 MEDEN T ([facility]) Source of Specimen: Urine Supersaturation Uric Acid 0.52 MEDENT ([facility]) Source of Specimen: Urine Procedure Social History Code Duration Value Status Description Data Source(s ) Smoking 03/02/2020 12:00:00 AM EST Former Cigarette Smoker com pleted Former Cigarette Smoker MEDENT ([facility]) Alcohol intake 02/25/2020 12:00:00 AM EST No completed [facility] Cigarette pack-years 02/25/2020 12:00:00 AM EST UNK completed [facility] Cigarettes smoked current (pack per day) - Reported 02/25/20 12:00:00 AM EST UNK completed [facility] Smoking 02/25/2020 12:00:00 AM EST Former smoker completed Former smoker [facility] Smoking 01/22/2020 05:47:00 PM EDT Former Smoker completed Former Smoker [facility] Smoking 01/20/2020 02:06:00 PM EDT Former Smoker completed Former Smoker [facility] Smoking 09/02/2019 12:00:00 AM EDT Patient is a former smoker completed Patient is a former smoker [facility] ([facility]) Vital Signs ID Date Data Source UNK Name Value Range Interpretation Code Description Data Source(s) Body mass index (BMI) [Ratio] 44.7 kg/m2 44.7 k g/m2 MEDENT ([facility]) Body height 68 [in_i] 68 [in_i] MEDENT ([facility]i [facility]y [facility]) 5'8" Body weight 294.00 [lb_av] 294.00 [lb_av] MEDEN T ([facility]) Oxygen saturation in Arterial blood by Pulse oximetry 98 % 98 % [facility] Respiratory rate 16 /min 16 /min [facility] Heart rate 78 /min 78 /min [facility] Diastolic blood pressure 70 mm[Hg] 70 mm[Hg] [facility] Systolic blood pressure 128 mm[Hg] 128 mm[Hg] [facility] Body temperature 98.1 [degF] 98.1 [degF] MED[facility] ([facility] [employer] [place]) Body temperature 36.72 Aydee 36.72 Aydee [facility] Body mass index (BMI) [Ratio] 43.79 kg/m2 43.79 kg/m2 MED[facility] ([facility] [employer] [facility] [place]) Body weight 130.636 kg 130.636 kg MED[facility] ([facility] [place]) Body weight 288.00 [lb_av] 288.00 [lb_av] MEDEN T ([facility] [employer] [facility] [place]) Body height 67.99 [in_i] 67.99 [in_i] MEDENT (A [facility] [place]) 5'7.99" Body mass index (BMI) [Ratio] 43.79 kg/m2 43.79 kg/m2 [facility] Body weight 130.636 kg 130.636 kg [facility] Body height 172.7 cm 172.7 cm [facility] Heart rate 68 /min 68 /min MED[facility] ([facility] [place]) Diastolic blood pressure 85 mm[Hg] 85 mm[Hg] MED[facility] ([facility] [employer] [facility] [place]) Systolic blood pressure 115 mm[Hg] 115 mm[Hg] M EDENT ([facility] [employer] [facility] [place]) Body mass index (BMI) [Ratio] 45.3 kg/m2 45.3 k g/m2 MEDENT ([facility] [employer] [facility] [place]) Body weight 135.173 kg 135.173 kg MED[facility] ([facility] [place]) Body weight 298.00 [lb_av] 298.00 [lb_av] MEDEN T ([facility] [employer] [facility] [place]) Body height 68 [in_i] 68 [in_i] MED[facility] ([facility] [facility] [place]) 5'8" Body temperature 36.5 aydee Normal (applies to non-numeric results) 36.5 aydee [facility] Respiratory rate 19 min Normal (applies to non-numeric results) 19 min [facility] Heart rate 63 min Normal (applies to non-numeric resul ts) 63 min [facility] Diastolic blood pressure 80 mm[Hg] Normal (applies to non-numeric results) 80 mm[Hg] [facility] Systolic blood pressure 156 mm[Hg] Normal (applies t o non-numeric results) 156 mm[Hg] [facility] Deprecated Oxygen saturation in Capillary blood by Oximetry 96 % Normal (applies to non-numeric results) 96 % [facility] Body weight Measured 134.717 kg Normal (applies to n on-numeric results) 134.717 kg [facility] Body height 171.9072 cm Normal (applies to non-numeric res ults) 171.9072 cm [facility] Body mass index (BMI) [Ratio] 45.16 kg/m2 No rmal (applies to non-numeric results) 45.16 kg/m2 [facility] Body temperature 36.8 aydee Normal (applies to non-numeric results) 36.8 aydee [facility] Respiratory rate 20 min Normal (applies to non-numeric results) 20 min [facility] Heart rate 73 min Normal (applies to non-numeric resul ts) 73 min [facility] Diastolic blood pressure 72 mm[Hg] Normal (applies to non-numeric results) 72 mm[Hg] [facility] Systolic blood pressure 116 mm[Hg] Normal (applies t o non-numeric results) 116 mm[Hg] [facility] Body weight Measured 118.4 kg Normal (applies to n on-numeric results) 118.4 kg [facility] Body height 171.9072 cm Normal (applies to non-numeric res ults) 171.9072 cm [facility] Deprecated Oxygen saturation in Capillary blood by Oximetry 97 % Normal (applies to non-numeric results) 97 % [facility] Body temperature 97.0 [degF] 97.0 [degF] [facility] ([employer] [employer] [facility] [employer] [facility] Heart rate 73 /min 73 /min [facility] ([facility] [employer] [facility] Diastolic blood pressure 84 mm[Hg] 84 mm[Hg] [facility] ([facility] [employer] [facility]) Systolic blood pressure 133 mm[Hg] 133 mm[Hg] [facility] ([facility] [employer] [facility]) Body mass index (BMI) [Ratio] 45.3 kg/m2 45.3 k g/m2 [facility] ([facility] [employer] [facility] Body weight 135.173 kg 135.173 kg [facility] ([facility] [facility] Body weight 298.00 [lb_av] 298.00 [lb_av] [facility] T ([facility] [employer] [facility]) Body height 68 [in_i] 68 [in_i] [facility] ([facility] [facility]) 5'8" Diastolic blood pressure--sitting 68 mm[Hg] 68 mm[Hg] [facility] ([facility]) large cuff, Ra Systolic blood pressure--sitting 122 mm[Hg] 122 mm[Hg] [facility] ([facility]) large cuff, Ra Heart rate 65 /min 65 /min [facility] ([facility]) Body mass index (BMI) [Ratio] 44.8 kg/m2 44.8 k g/m2 [facility] ([facility]) Body height 68 [in_i] 68 [in_i] [facility] ([facility]) 5'8" Body weight 295.00 [lb_av] 295.00 [lb_av] DREW Alfaro ([facility])
[2020-04-25 05:00] VITALS: BP 130/84
[2020-04-25 05:09] VITALS: O2SAT 98
[2020-04-25 05:17] LABS: RSV AMPLIFICATION NEGATIVE (NEGATIVE)
[2020-04-25 05:33] LABS: ABG BASE EXCESS -4.3 (-2.0-2.0); ABG HCO3 18.9 MEQ/L (22.0-26.0); ABG O2 SATURATION 96.5 % (95.0-99.0); ABG PARTIAL PRESSURE CO2 29.7 mmHg (35.0-45.0); ABG PARTIAL PRESSURE O2 100.8 mmHg (75.0-100.0); ABG STANDARD HCO3 20.9 MEQ/L (22.0-26.0); ABG TOTAL CO2 19.8 MEQ/L (23.0-31.0); ABG pH (ARTERIAL) 7.422 UNITS (7.350-7.450)
[2020-04-25] MEDS: MEROPENEM INJ 1 GM in IV 1 EA IV SCH (05:34)
[2020-04-25] MEDS ORDERED: NYSTATIN 100,000 UNITS/GM TOPICAL PWD 15 GM TOP PRN (06:00)
[2020-04-25] MEDS ORDERED: ONDANSETRON 4 MG TAB PO PRN (06:00)
[2020-04-25] MEDS ORDERED: NITROGLYCERIN 0.4 MG SUBL TABLET SL PRN (06:00)
[2020-04-25] MEDS ORDERED: COMBIVENT RESPIMAT 100-20MCG INHALER 4GM INH PRN (06:00)
[2020-04-25] MEDS: VANCOMYCIN HCL 1,000 MG, VIAL MATE ADAPTER 1 EACH in D5W 250 ML IV SCH ×3 (06:18→21:10)
[2020-04-25] MEDS ORDERED: VANCOMYCIN HCL 1,000 MG, VIAL MATE ADAPTER 1 EACH in D5W 250 ML IV ONE (07:00)
[2020-04-25] MEDS: DOCUSATE SODIUM 100MG CAPSULE PO SCH ×2 (07:53→21:09)
[2020-04-25] MEDS: CYANOCOBALAMIN 500 MCG TAB PO SCH (07:57)
[2020-04-25] MEDS: METOPROLOL TART 25 MG TABLET PO SCH ×2 (07:59→21:10)
[2020-04-25 08:00] VITALS: BP 120/63
[2020-04-25] MEDS: PREGABALIN 75 MG CAP(LYRICA) PO SCH ×2 (08:00→21:09)
[2020-04-25] MEDS: DULoxetine 30 MG CAP (CYMBALTA) PO SCH (08:00)
[2020-04-25] MEDS: OMEPRAZOLE 20 MG CAP PO SCH (08:00)
[2020-04-25] MEDS: ASPIRIN 81 MG ENTERIC TAB PO SCH (08:01)
[2020-04-25] MEDS: allopurinoL 100 MG TAB PO SCH (08:02)
[2020-04-25] MEDS: ENOXAPARIN 40MG/0.4ML SYRINGE (J1650 PER 10MG) SC SCH (08:02)
--- NOTE | 2020-04-25 08:58 | ECGEPIP ---
[facility] - ED Test Date: 2020-04-25 Pat Name: CARLITA YE Department: Room: [place] [address] Gender: Male Straightener: STEF : 1955 Requested By: PREET Beal Order Number: [id number] Reading MD: Linnette Benavidez Measurements Intervals [place] Rate: 64 P: 12 MA: 188 QRS: -5 QRSD: 97 T: 68 QT: 414 QTc: 427 Interpretive Statements SINUS RHYTHM NONSPECIFIC T-WAVE ABNORMALITY prwp decreased rate 04/21/20 Electronically Signed on 04-25-2020 8:57:52 EST by Linnette Benavidez
[2020-04-25] MEDS ORDERED: DEXTROSE 50% 50 ML SYRINGE IV PRN (13:15)
[2020-04-25] MEDS ORDERED: GLUCOSE 4GM CHEW TABLET PO PRN (13:15)
[2020-04-25] MEDS ORDERED: GLUCAGON INJ 1MG VIAL SC PRN (13:15)
[2020-04-25 16:34] VITALS: BP 127/68
[2020-04-25] MEDS: HumaLOG INSULIN (NovoLOG) PER UNIT SC SCH (17:30)
[2020-04-25 20:00] VITALS: BP 117/59
[2020-04-25] MEDS ORDERED: ATORVASTATIN 20 MG TAB PO SCH (21:00)
[2020-04-25] MEDS ORDERED: HumaLOG INSULIN (NovoLOG) PER UNIT SC SCH (21:00)
[2020-04-25] MEDS ORDERED: TAMSULOSIN 0.4 MG CAP PO SCH (21:00)
[2020-04-26 04:08] VITALS: BP 119/65
[2020-04-26] MEDS: MEROPENEM INJ 1 GM in IV 1 EA IV SCH (05:00)
[2020-04-26 08:00] VITALS: BP 129/65
[2020-04-26] MEDS: ENOXAPARIN 40MG/0.4ML SYRINGE (J1650 PER 10MG) SC SCH (08:29)
[2020-04-26] MEDS: ASPIRIN 81 MG ENTERIC TAB PO SCH (08:30)
[2020-04-26] MEDS: PREGABALIN 75 MG CAP(LYRICA) PO SCH (08:30)
[2020-04-26] MEDS: DOCUSATE SODIUM 100MG CAPSULE PO SCH (08:30)
[2020-04-26] MEDS: HumaLOG INSULIN (NovoLOG) PER UNIT SC SCH ×2 (08:30→12:33)
[2020-04-26] MEDS: DULoxetine 30 MG CAP (CYMBALTA) PO SCH (08:31)
[2020-04-26 08:32] VITALS: BP 129/65
[2020-04-26] MEDS: CYANOCOBALAMIN 500 MCG TAB PO SCH (08:32)
[2020-04-26] MEDS: METOPROLOL TART 25 MG TABLET PO SCH (08:32)
[2020-04-26] MEDS: OMEPRAZOLE 20 MG CAP PO SCH (08:33)
[2020-04-26] MEDS: allopurinoL 100 MG TAB PO SCH (08:33)
[2020-04-26 08:43] LABS: HEMOGLOBIN 13.2 g/dl (13.5-17.5); MEAN CORPUSCULAR HEMOGLOBIN 30.1 pg (27.0-33.0); MEAN CORPUSCULAR HGB CONC 31.4 g/dl (32.0-36.5); MEAN CORPUSCULAR VOLUME 95.7 fl (80.0-96.0); PLATELET COUNT, AUTOMATED 324 10^3/uL (150-450); RED BLOOD COUNT 4.39 10^6/uL (4.30-6.10); WHITE BLOOD COUNT 12.4 10^3/uL (4.0-10.0)
[2020-04-26] MEDS ORDERED: VANCOMYCIN HCL 1,000 MG, VIAL MATE ADAPTER 1 EACH in D5W 250 ML IV SCH (09:00)
[2020-04-26 09:09] LABS: CALCIUM LEVEL 8.5 MG/DL (8.8-10.2); CREATININE FOR GFR 1.3 MG/DL (0.70-1.30); GLOMERULAR FILTRATION RATE 59.5 (>49); POTASSIUM SERUM 4.3 MEQ/L (3.5-5.1)
[2020-04-26 10:00] VITALS: BP 105/55
[2020-04-26 11:03] LABS: HEMOGLOBIN A1c 7.4 %
--- NOTE | 2020-04-26 11:08 | DS.PDOC ---
Discharge Summary General Date of Admission Apr 25, 2020 at 03:51 Date of Discharge 04/26/2020 Primary Care Physician: REMBERTO MARTI MD [facility] Attending Physician: URIEL COFFMAN MD Discharge Summary PROCEDURES PERFORMED DURING STAY: None. ADMITTING/DISCHARGE DIAGNOSES: Positive blood culture Hypoxia due to Covid 19 CHFpEF Radiculopathy CAD status post CABG in 2016/TIA Depression/anxiety Gout Obesity COMPLICATIONS/CHIEF COMPLAINT: Covid-19, bacteremia. HISTORY OF PRESENT ILLNESS: "Mr. Villatoro was diagnosed with COVID 19 on Apr 13 at an outside facility with his . The second COVID test taken at [facility] on Apr 13 was negative, but the third test taken this morning was positive. He was admitted to the COVID unit between Apr 21 and Apr 23. Early this morning I was informed by STIVEN Calvo that the lab informed him that the preliminary results from the blood cultures, which were drawn on Apr 21, were positive for gram positive cocci in pairs and clutters. I called the patient and ask him to return to the hospital. At the time of my evaluation the patient denied having fevers, child or chest pain. He continues to have a cough, dyspnea and require supplemental O2." HOSPITAL COURSE: Patient was admitted to the hospital 04/25 and new repeat blood cultures were drawnx2. Patient was started on IV vancomycin and meropenem and monitored overnight. Following morning patient's oxygen requirements were the same and he continued to deny any fevers, chills, chest pain, worsening shortness of breath, abdominal pain, nausea, vomiting, diarrhea. Review of the medical chart, the patient had a single blood culture from 04/21 drawn that showed a preliminary positive. He had 2 additional blood cultures drawn on 04/21 that had been negative at this time for 72 hours making this a likely contaminant. Furthermore his was confirmed to be a contaminant as pharmacy called just prior to discharge confirming that the blood culture was positive for staph epi. Finally new blood cultures taken on 04/25 were negative after 24 hours. Patient's vancomycin was discontinued as was his meropenem. He was discharged home with instructions to follow up with his PCP as previously scheduled and he was continued on his home oxygen as previously needed from his last admission. DISCHARGE MEDICATIONS: Please see below. ALLERGIES: Please see below. PHYSICAL EXAMINATION ON DISCHARGE: VITAL SIGNS: Please see below. General: Pleasant appearing male sitting upright in bed next to his eaten breakfast in no acute distress. HEENT: NC, AT. EOMI, no scleral icterus. No pharyngeal erythema, mucous membranes moist. Neck: No lymphadenopathy or JVD CV: RRR, Normal S1 and S2. No murmurs, gallops, or rubs. Resp: Clear but reduced breath sounds bilaterally. No wheezes, crackles, or rhonchi. No dullness to percussion. Abdomen: Bowel sounds present. Soft, NT, ND. Extremities: No swelling or edema. Psychiatric: Normal mood and affect. LABORATORY DATA: Please see below. IMAGIN04/25/20 chest x-ray: PROGNOSIS: "Improved aeration of the retrocardiac region with residual atelectasis versus infiltrates. " ACTIVITY: As tolerated DIET: As tolerated DISCHARGE PLAN: Home with services DISPOSITION: 01 Home, Self-Care. DISCHARGE INSTRUCTIONS: 1. Please follow-up with your primary care provider as previously scheduled 2. Please return to the hospital if her symptoms worsen. DISCHARGE CONDITION: Stable. TIME SPENT ON DISCHARGE: 10 minutes. Vital Signs/I&Os Vital Signs Date Time Temp Pulse Resp B/P (MAP) Pulse Ox O2 Delivery O2 Flow Rate FiO2 04/26/20 10:00 96.1 61 20 105/55 (72) 94 Nasal Cannula 2.0 I&O- Last 24 Hours up to 6 AM 04/26/20 06:00 Intake Total 1320 ml Output Total 1075 ml Balance 245 ml Laboratory Data Labs 24H Laboratory Tests 2 04/25/20 13:07: Bedside Glucose (Misc Panel) 316H 04/25/20 17:19: Bedside Glucose (Misc Panel) 224H 04/25/20 20:46: Vancomycin Level Trough 22.0H 04/25/20 21:04: Bedside Glucose (Misc Panel) 291H 04/26/20 07:41: Bedside Glucose (Misc Panel) 129H 04/26/20 08:16: Nucleated Red Blood Cells % (auto) 0.2H, Anion Gap 8, Glomerular Filtration Rate 59.5, Estimated Mean Plasma Glucose 166H, Hemoglobin A1c 7.4, Calcium Level 8.5L, Vancomycin Level Trough 20.0 CBC/BMP Laboratory Tests 04/26/20 08:16 FSBS Laboratory Tests Test 04/25/20 13:07 04/25/20 17:19 04/25/20 21:04 04/26/20 07:41 Range/Units Bedside Glucose (Misc Panel) 316 224 291 129 80-115 MG/DL Microbiology Microbiology 04/25/20 Blood Culture - Preliminary, Resulted No growth after 24 hours . All specim... 04/25/20 Blood Culture - Preliminary, Resulted No growth after 24 hours . All specim... Discharge Medications Scheduled Allopurinol (Allopurinol) 100 Mg Tablet, 100 MG PO DAILY, (Reported) Aspirin (Aspirin EC) 81 Mg Tab, 81 MG PO DAILY, (Reported) Atorvastatin Calcium (Atorvastatin Calcium) 80 Mg Tablet, 80 MG PO QHS, (Reported) Calcium Citrate/Vitamin D3 (Citracal + D Maximum Caplet) 1 Tab Tab, 3 TAB PO BID, (Reported) Cyanocobalamin (Vitamin B-12) (Vitamin B-12) 1,000 Mcg Tab, 1,000 MCG PO DAILY, (Reported) Dexamethasone (Dexamethasone) 2 Mg Tablet, 2 MG PO DAILY, (Reported) STARTED 04/24/20 X 3 DAYS Dexamethasone (Dexamethasone) 2 Mg Tablet, 1 TAB PO DAILY Docusate Sodium (Dok) 100 Mg Capsule, 100 MG PO BID, (Reported) Duloxetine Hcl (Duloxetine HCl) 60 Mg Cap, 60 MG PO DAILY, (Reported) Glucosamine Sulfate Dipot Chlr (Glucosamine) 1,000 Mg Tablet, 1,000 MG PO BID, (Reported) Metoprolol Tartrate (Metoprolol Tartrate) 25 Mg Tablet, 25 MG PO BID, (Reported) Omeprazole (Omeprazole) 40 Mg Cap, 40 MG PO DAILY, (Reported) Pregabalin (Lyrica) 150 Mg Capsule, 150 MG PO BID, (Reported) Tamsulosin HCl (Flomax) 0.4 Mg Capsule, 0.4 MG PO QHS, (Reported) Ubidecarenone/Vit E Acet (Co Q-10 100 mg Softgel) 100 Mg Cap, 100 MG PO BID, (Reported) Scheduled PRN Ipratropium/Albuterol Sulfate (Combivent Respimat 20-100 Mcg) 4 Gm Mist.inhal, 1 PUFF INH QIDP PRN for DYSPNEA Nitroglycerin (Nitrostat) 0.4 Mg Tab.subl, 0.4 MG SL NITRO PRN for CHEST PAIN, (Reported) Nystatin (Nystatin Powder) 15 Gm Powder, 1 APLCT TOP DAILY PRN for RASH/ITCHING, (Reported) APPLY TO GROIN AREA Ondansetron HCl (Ondansetron HCl) 4 Mg Tablet, 4 MG PO Q6H PRN for NAUSEA, (Reported) Sildenafil Citrate (Viagra) 100 Mg Tablet, 100 MG PO DAILYPRN PRN for erectile dysfunction, (Reported) 1 hour before sexual activity Allergies Coded Allergies: Penicillins (Verified Allergy, Intermediate, rash, 04/21/20) naproxen (Verified Adverse Reaction, Intermediate, Gastric bypass, 04/21/20) ibuprofen (Verified Adverse Reaction, Unknown, gastric bypass, 04/21/20) GME ATTESTATION GME ATTESTATION My faculty preceptor for this patient encounter was physically present during the encounter and was fully available. All aspects of the patient interview, examination, medical decision making process, and medical care plan development were reviewed and approved by the faculty preceptor. The faculty preceptor is aware and concurs with the plan as stated in the body of this note and will attest to such by his/her cosignature. MIR CRAVEN DO Apr 26, 2020 11:08
[2020-04-26] MEDS ORDERED: DEXA2TA PO (11:59)
== END 2020-04-26 13:01 | disposition home health service (06) | DRG 951 ==
LOC: M ED 03:13 → M 4MAIN 03:51 → ENRESERV 04:33
PROVIDERS: ADMIT Internal Medicine; ATTEND Internal Medicine
DX: Z03.89 Encounter for observation for other suspected diseases and conditions ruled out (principal); I50.32 Chronic diastolic (congestive) heart failure; Z68.41 Body mass index [BMI] 40.0-44.9, adult; J96.11 Chronic respiratory failure with hypoxia; E66.9 Obesity, unspecified; I25.10 Atherosclerotic heart disease of native coronary artery without angina pectoris; F32.9 Major depressive disorder, single episode, unspecified; F41.9 Anxiety disorder, unspecified; M10.9 Gout, unspecified; Z79.82 Long term (current) use of aspirin; Z79.899 Other long term (current) drug therapy; Z88.0 Allergy status to penicillin; Z88.6 Allergy status to analgesic agent; Z88.8 Allergy status to other drugs, medicaments and biological substances; Z99.81 Dependence on supplemental oxygen; G47.00 Insomnia, unspecified; K21.9 Gastro-esophageal reflux disease without esophagitis; I11.0 Hypertensive heart disease with heart failure; Z87.891 Personal history of nicotine dependence; Z87.442 Personal history of urinary calculi; Z86.73 Personal history of transient ischemic attack (TIA), and cerebral infarction without residual deficits; R89.5 Abnormal microbiological findings in specimens from other organs, systems and tissues

== ENCOUNTER → 2021-07-29 | Outpatient (CLI) | payer MEDICARE ==
[~2021-07-29] MED LIST changes: +DOK1CAP4 PO; -DOK1CAP7 PO; -KLOR20TA42 PO; +LIDOCAINE 1% MDV 20ML VIAL As Ordered ONE; -LISI-538 PO; +LISI10TA22 PO; -LISI10TA4 PO; +LISI20TA33 PO; +OMEP40CA4 PO; -OMEP40CA97 PO; +POTA-141 PO; +methylPREDNISolone SUSP 40MG/ML 1ML VIAL (DEPO MEDROL) As Ordered ONE
== END ==
LOC: M IRPRO 12:45
PROVIDERS: ATTEND Physician Assistant Surgical
DX: M75.21 Bicipital tendinitis, right shoulder (principal)
CPT/HCPCS: 20550; 76942; J1030

== ENCOUNTER 2021-09-30 15:52 | Emergency (ER) | payer MEDICARE ==
[~2021-09-30] VITALS: Ht 172.7 cm; Wt 136.8 kg
[~2021-09-30 15:52] MED LIST changes: -LIDOCAINE 1% MDV 20ML VIAL As Ordered ONE; -methylPREDNISolone SUSP 40MG/ML 1ML VIAL (DEPO MEDROL) As Ordered ONE
[2021-09-30 15:53] VITALS: BP 176/91
[2021-09-30] MEDS ORDERED: NS 1,000 ML IV ONE (17:00)
[2021-09-30] MEDS ORDERED: KETOROLAC 30 MG/ML 1ML VIAL IV ONE (17:00)
[2021-09-30 17:21] LABS: BASO % 0.4 % (0.0-1.0); EOS # 0.3 10^3/uL (0.0-0.5); EOS % 2.8 % (0.0-3.0); HEMATOCRIT 44.4 % (42.0-52.0); HEMOGLOBIN 14.2 g/dl (13.5-17.5); LYMPH # 1.7 10^3/uL (1.5-5.0); LYMPH % 15.6 % (24.0-44.0); MEAN CORPUSCULAR VOLUME 93.9 fl (80.0-96.0); MONO # 0.7 10^3/uL (0.0-0.8); MONO % 6.4 % (2.0-8.0); NEUTROPHILS # 7.8 10^3/uL (1.5-8.5); NEUTROPHILS % 73.5 % (36.0-66.0); PLATELET COUNT, AUTOMATED 229 10^3/uL (150-450); RED BLOOD COUNT 4.73 10^6/uL (4.30-6.10); WHITE BLOOD COUNT 10.6 10^3/uL (4.0-10.0)
[2021-09-30 17:48] LABS: ALBUMIN 3.6 GM/DL (3.2-5.2); BILIRUBIN,DIRECT 0.2 MG/DL (0.0-0.2); BILIRUBIN,TOTAL 0.7 MG/DL (0.2-1.0); TOTAL PROTEIN 7.1 GM/DL (6.4-8.2)
== END 2021-09-30 19:03 | disposition home or self-care (01) ==
LOC: M ED 15:52
DX: N21.0 Calculus in bladder (principal); N13.4 Hydroureter; I10 Essential (primary) hypertension; E78.5 Hyperlipidemia, unspecified; R51.9 Headache, unspecified; K21.9 Gastro-esophageal reflux disease without esophagitis; M54.50 Low back pain, unspecified; D64.9 Anemia, unspecified; F32.A Depression, unspecified; Z87.442 Personal history of urinary calculi; Z86.79 Personal history of other diseases of the circulatory system; Z88.0 Allergy status to penicillin; Z88.6 Allergy status to analgesic agent
CPT/HCPCS: 74176; 80047; 80076; 81001; 83690; 85025; 96361; 96374; 99283; J1885

== ENCOUNTER → 2021-12-05 | Outpatient (CLI) | payer MEDICARE | LOC: M RAD 10:32 | PROVIDERS: ATTEND Nurse Practitioner Family | DX: N20.1 Calculus of ureter (principal); N13.2 Hydronephrosis with renal and ureteral calculous obstruction ==

== ENCOUNTER → 2021-12-14 | Outpatient (CLI) | payer MEDICARE | LOC: M RAD 16:32 | PROVIDERS: ATTEND Nurse Practitioner Family | DX: N13.2 Hydronephrosis with renal and ureteral calculous obstruction (principal) ==

== ENCOUNTER → 2023-03-29 | Outpatient (CLI) | payer MEDICARE, OTHER ==
[~2023-03-29] MED LIST changes: -AMIT25TA17 PO; +AMIT25TA19 PO; +CLOP75TA99 PO; -PLAV1TAB2 PO
== END ==
LOC: M PLAIMG 09:35
PROVIDERS: ATTEND Family Medicine
DX: R05.9 Cough, unspecified (principal)

== ENCOUNTER → 2023-10-18 | Outpatient (CLI) | payer OTHER ==
[~2023-10-18] MED LIST changes: +VITA250T27 PO; -VITA250T4 PO
== END ==
LOC: M WUC 10:31
PROVIDERS: ATTEND Student in an Organized Health Care Education/Training Program
DX: M79.651 Pain in right thigh (principal)

== ENCOUNTER → 2023-12-05 | Outpatient (CLI) | payer OTHER ==
[~2023-12-05] MED LIST changes: +GABA-1490 PO; -GABA600T4 PO
[2023-12-05 10:18] LABS: BASO % 0.4 % (0.0-1.0); EOS # 0.4 10^3/uL (0.0-0.5); EOS % 3.9 % (0.0-3.0); HEMATOCRIT 44.9 % (42.0-52.0); HEMOGLOBIN 14.4 g/dl (13.5-17.5); LYMPH # 2.7 10^3/uL (1.5-5.0); LYMPH % 25.1 % (24.0-44.0); MEAN CORPUSCULAR HEMOGLOBIN 29.9 pg (27.0-33.0); MEAN CORPUSCULAR HGB CONC 32.1 g/dl (32.0-36.5); MEAN CORPUSCULAR VOLUME 93.2 fl (80.0-96.0); MONO # 0.8 10^3/uL (0.0-0.8); MONO % 7.1 % (2.0-8.0); NEUTROPHILS # 6.7 10^3/uL (1.5-8.5); NEUTROPHILS % 62.5 % (36.0-66.0); PLATELET COUNT, AUTOMATED 237 10^3/uL (150-450); RED BLOOD COUNT 4.82 10^6/uL (4.30-6.10); WHITE BLOOD COUNT 10.7 10^3/uL (4.0-10.0)
[2023-12-05 10:18] LABS: APPEARANCE, URINE CLEAR (CLEAR); BACTERIA, URINE AUTO NEGATIVE (NEGATIVE); BILIRUBIN, URINE AUTO NEGATIVE (NEGATIVE); BLOOD, URINE BLOOD NEGATIVE (NEGATIVE); COLOR, URINE YELLOW (YELLOW); GLUCOSE, URINE (UA) AUTO NEGATIVE (NEGATIVE); KETONE, URINE AUTO NEGATIVE (NEGATIVE); LEUKOCYTE ESTERASE, URINE AUTO NEGATIVE (NEGATIVE); MUCUS, URINE SMALL (NEGATIVE); NITRITE, URINE AUTO NEGATIVE (NEGATIVE); PROTEIN, URINE AUTO NEGATIVE (NEGATIVE); RBC, URINE AUTO 1 /HPF (0-3); SPECIFIC GRAVITY URINE AUTO 1.018 (1.002-1.035); SQUAMOUS EPITHELIAL CELL UR AU 0 /HPF (0-6); UROBILINOGEN, URINE AUTO 0.2 mg/dL (0.0-2.0); WBC, URINE AUTO 0 /HPF (0-3)
[2023-12-05 10:48] LABS: ALBUMIN 3.7 G/DL (3.2-5.2); ALKALINE PHOSPHATASE 90 U/L (46-116); ALT/SGPT 20 U/L (7.0-40); AST/SGOT 16 U/L (<34); BILIRUBIN,TOTAL 0.6 MG/DL (0.3-1.2); BLOOD UREA NITROGEN 22 MG/DL (9-23); CALCIUM LEVEL 9.6 MG/DL (8.3-10.6); CARBON DIOXIDE LEVEL 25 MMOL/L (20-31); CHLORIDE LEVEL 108 MMOL/L (98-107); CREATININE FOR GFR 1.11 MG/DL (0.70-1.30); GLOMERULAR FILTRATION RATE > 60.0 (>49); GLUCOSE, FASTING 131 MG/DL (74-106); POTASSIUM SERUM 4.6 MMOL/L (3.5-5.1); SODIUM LEVEL 142 MMOL/L (136-145)
[2023-12-05 10:55] LABS: HEMOGLOBIN A1c 6.4 % (4.0-6.0)
== END ==
LOC: M EKG 08:08 → M LAB 08:08
PROVIDERS: ATTEND Family Medicine
DX: Z01.818 Encounter for other preprocedural examination (principal); Z79.899 Other long term (current) drug therapy

== ENCOUNTER → 2023-12-24 | Outpatient (CLI) | payer OTHER | LOC: M PLAIMG 07:28 | PROVIDERS: ATTEND Registered Nurse | DX: I77.810 Thoracic aortic ectasia (principal); I08.2 Rheumatic disorders of both aortic and tricuspid valves ==